=== PATIENT | female | born 1960 | race Caucasian/White ===

== ENCOUNTER 2024-03-05 10:58 | Emergency (ER) | payer OTHER, SELFPAY ==
[2024-03-05 11:19] VITALS: BP 147/53; PULSE 100; RESP 24; TEMP 36.6; O2SAT 97
--- NOTE | 2024-03-05 11:46 | ED.URI ---
HPI - URI/Sore Throat General Chief Complaint: Upper Respiratory Infection Stated Complaint: Sore Throat/Congestion/Ear Pain Time Seen by Provider: 03/05/24 11:46 History of Present Illness HPI Narrative: 63-year-old female with a history of COPD presented for complaint of cough, sore throat, right ear pain and nasal congestion. Onset 1 week. Symptoms were worse yesterday. Using nebulizers without significant improvement. Endorses shortness of breath with exertion, which she says is increased her baseline. Denies wheezing, nausea, vomiting diarrhea, fevers or lethargy. Endorses she was hospitalized a few weeks ago for influenza. Related Data Home Medications ?Medication ?Instructions ?Recorded ?Confirmed ?Last Taken ?Type albuterol sulfate 1.25 mg/3 mL 1.25 mg inhalation Q4-8H PRN 03/05/24 03/05/24 History solution for nebulization shortness of breath or wheezing albuterol sulfate 90 mcg/actuation 2 puff inhalation Q4-6H PRN 03/05/24 Unknown History aerosol inhaler shortness of breath or wheezing alendronate 70 mg tablet 70 mg PO WEEKLY 03/05/24 Unknown History cholecalciferol (vitamin D3) 1,250 1,250 mcg PO WEEKLY 03/05/24 Unknown History mcg (50,000 unit) capsule cyanocobalamin (vitamin B-12) 1,000 mcg IM MONTHLY 03/05/24 Unknown History 1,000 mcg/mL injection solution fluticasone fur. 200 mcg-umeclid 1 inh inhalation Q24H 03/05/24 Unknown History 62.5 mcg-vilant 25 mcg inhalat.powder (Trelegy Ellipta) montelukast 10 mg tablet 10 mg PO DAILY 03/05/24 Unknown History pantoprazole 40 mg tablet,delayed 40 mg PO HS 03/05/24 03/05/24 Unknown History release (Protonix) prednisone 5 mg tablet 7.5 mg PO DAILY 03/05/24 Unknown History rosuvastatin 10 mg tablet 10 mg PO DAILY 03/05/24 Unknown History Allergies Allergy/AdvReac Type Severity Reaction Status Date / Time ceftriaxone (From Rocephin) Allergy Intermediate HIVES Verified 03/05/24 11:28 Review of Systems Review of Systems: ROS per HPI FOR[facility] Past Medical History Medical History (Updated 03/05/24 @ 12:02 by Shala Mcarthur APRN) Adrenal insufficiency COPD (chronic obstructive pulmonary disease) Exam Narrative: GENERAL: mildly ill-appearing, no acute distress. EYES: conjunctivae clear ENT: Mucous membranes moist. right TM pearly gilbert with normal light reflex, mild excess cerumen to canal. Left TM unable to visualize due to excess cerumen.; no tragal tenderness. Oropharynx not erythematous without lesions. Tonsils not enlarged and without exudate. No drooling, no hoarseness, no trismus, uvula midline. No tripod positioning, hot potato voice, or soft palate swelling. NECK: Supple. No lymphadenopathy CHEST: Clear to auscultation, breath sounds equal. No respiratory distress, speaks in full sentences. HEART: Regular rate and rhythm. No murmur heard. SKIN: Warm, dry, no rash. NEURO: Alert and oriented x3. Course Course Emergency Course: Patient is aware of diagnosis, understands and agrees to treatment plan. Anticipatory guidance given. Patient agrees to follow-up as directed and is aware of reasons to seek care at the emergency department. Portions of this record may have been created with voice recognition software Level of Care: Express Care Visit Vital Signs Vital signs: Vital Signs Temperature 98 F 03/05/24 11:19 Pulse Rate 100 03/05/24 11:19 Respiratory Rate 24 H 03/05/24 11:19 Blood Pressure 147/53 H 03/05/24 11:19 Pulse Oximetry 97 03/05/24 11:19 Oxygen Delivery Room Air 03/05/24 11:19 Temperature 98 F 03/05/24 11:19 Pulse Rate 100 03/05/24 11:19 Respiratory Rate 24 H 03/05/24 11:19 Blood Pressure 147/53 H 03/05/24 11:19 Pulse Oximetry 97 03/05/24 11:19 Oxygen Delivery Room Air 03/05/24 11:19 MDM - URI/Sore Throat MDM Narrative Medical decision making narrative: Negative flu and COVID result reviewed with pt. Advise supportive treatments. Patient is appropriate for outpatient treatment and follow-up. Differential Diagnosis Differential diagnosis: Likely upper respiratory infection, viral infection and pharyngitis Lab Data Labs: Lab Results 03/05/24 Range/Units 11:46 POC Influenza A Ag Negative (Negative) POC Influenza B Ag Negative (Negative) POC SARS CoV-2 Ag Negative (Negative) Discharge Plan Discharge Clinical Impression: Bronchitis Patient Disposition: Home, Self-Care Condition: Stable Instructions: Antibiotic Form, Acute Bronchitis (ED) Additional Instructions: flu COVID negative. Acute bronchitis can be contagious because it is usually caused by infection with a virus or bacteria. It is usually for a few days but you can be contagious for up to one week. Avoid crowds until you do not have a fever and symptoms are improved Take medication as directed continue your nebulizers as previously prescribed Recommend Flonase spray and Zyrtec (or Claritin/Juliana) over the counter Cough syrup may cause drowsiness; avoid driving or take it at night time. Tylenol 1000mg every 8 hours as needed for pain Symptomatic treatment includes: rest, fluids, and increase humidity of the air at home. Follow up with your primary care provider, call to schedule appointment Go to the ER for worsening symptoms or concerns Patient Language: [place] Citizen Prescriptions: New amoxicillin-pot clavulanate [Augmentin ES-600] 600-42.9 mg/5 mL suspension for reconstitution 7.5 ml PO BID 7 Days Qty: 105 0RF prednisone 20 mg tablet 20 mg PO DAILY 4 Days Qty: 4 0RF No Action cholecalciferol (vitamin D3) 1,250 mcg (50,000 unit) capsule 1,250 mcg PO WEEKLY cyanocobalamin (vitamin B-12) 1,000 mcg/mL solution 1,000 mcg IM MONTHLY alendronate 70 mg tablet 70 mg PO WEEKLY albuterol sulfate 90 mcg/actuation HFA aerosol inhaler 2 puff INHALATION Q4-6H PRN (Reason: shortness of breath or wheezing) prednisone 5 mg tablet 7.5 mg PO DAILY rosuvastatin 10 mg tablet 10 mg PO DAILY montelukast 10 mg tablet 10 mg PO DAILY Trelegy Ellipta 200-62.5-25 mcg blister with device 1 inh INHALATION Q24H albuterol sulfate 1.25 mg/3 mL solution for nebulization 1.25 mg inhalation Q4-8H PRN (Reason: shortness of breath or wheezing) pantoprazole [Protonix] 40 mg tablet,delayed release (DR/EC) 40 mg PO HS Follow-up/Referrals: PHYSICIAN NOT ON STAFF,NONSTAFF [Primary Care Provider] -
[2024-03-05 11:48] LABS: EDCOVIDSCREEN Negative (Negative)
[2024-03-05 11:49] LABS: EDINFLUASCREEN Negative (Negative); EDINFLUBSCREEN Negative (Negative)
--- OUTSIDE RECORDS SUMMARY | 2024-03-09 10:19 | XMS_ITS ---
Author Organization [facility] Address [address] [place] [address] Phone Care Team Providers Care Generator Worker Name Role Phone DR KM Primary Care Provider ELIANA Jarrett DO Unavailable [phone] Problems Includes: Active, inactive, and resolved Problems All Visits Onset Date Resolved Date Provider Condition S tatus Chronic Obstructive Pulmonary Disease 05/30/2021 RHETT PERLA EDUCATION DEAN-C Active Last Documented On 2 11:55AM ; [facility] Plan of Treatment Findings Encounter Date Go to the emergency room if condition worsens WALK IN PATIENT - ESTABLISHED PT with BRI YING EDUCATION DEAN-BC 02/13/2023 Last Documented On 3 4:29PM ; [facility] Ordered analgesics (non-ster oidal anti-inflammatory agents) WALK IN PATIENT - ESTABLISHED PT with BRI YING EDUCATION DEAN-BC 02/13/2023 Last Documented On 3 4:29PM ; [facility] Ordered follow-up visit in 2 -3 weeks with an office visit with dentist WALK IN PATIENT - ESTABLISHED PT with BRI YING EDUCATION DEAN-BC 02/13/2023 Last Documented On 3 4:29PM ; [facility] Ordered moist heat WALK IN PATIENT - ES TABLISHED PT with BRI YING EDUCATION DEAN-BC 02/13/2023 Last Documented On 3 4:29PM ; [facility] Ordered return to the clinic if condition worsens or new symptoms arise WALK IN PATIENT - ESTABLISHED PT with BRI YING EDUCATION DEAN-BC 02/13/2023 Last Documented On 3 4:29PM ; [facility] Ordered follow-up visit in 1 -2 weeks with an office visit or sooner if symptoms persist or worsen COVID SICK VISIT- ESTABLISHED PATIENT with BRI YING EDUCATION DEAN-BC 12/15/2022 Last Documented On 3 7:19PM ; [facility] Ordered patient to call if p roblem develops COVID SICK VISIT- ESTABLISHED PATIENT with BRI YING EDUCATION DEAN-BC 12/15/2022 Last Documented On 3 7:19PM ; [facility] Ordered return to the clinic if condition worsens or new symptoms arise COVID SICK VISIT- ESTABLISHED PATIENT with BRI YING EDUCATION DEAN-BC 12/15/2022 Last Documented On 3 7:19PM ; [facility] Ordered follow-up visit in 1 -2 weeks with an office visit or sooner if symptoms persist or worsen COVID SICK VISIT- ESTABLISHED PATIENT with BRI YING EDUCATION DEAN-BC 11/20/2022 Last Documented On 3 8:02PM ; [facility] Ordered patient to call if p roblem develops COVID SICK VISIT- ESTABLISHED PATIENT with BRI YING EDUCATION DEAN-BC 11/20/2022 Last Documented On 3 8:02PM ; [facility] Ordered return to the clinic if condition worsens or new symptoms arise COVID SICK VISIT- ESTABLISHED PATIENT with BRI YING EDUCATION DEAN-BC 11/20/2022 Last Documented On 3 8:02PM ; [facility] Ordered patient will call fo r appointment as needed COVID SICK VISIT- ESTABLISHED PATIENT with BELINDA Thompson [employer] INVESTIGATOR 10/06/2022 Last Documented On 3 7:48AM ; [facility] Ordered return to the clinic if condition worsens or new symptoms arise COVID SICK VISIT- ESTABLISHED PATIENT with BELINDA Thompson [employer] INVESTIGATOR 10/06/2022 Last Documented On 3 7:48AM ; [facility] Ordered goals, options, limi tations and risks of therapy COVID SICK VISIT- ESTABLISHED PATIENT with BELINDA HUTCHINSON [employer]VEST[employer]ATION UNIT INVESTIGATOR 07/08/2022 Last Documented On 3 9:19AM ; [facility] Ordered patient will call fo r appointment as needed COVID SICK VISIT- ESTABLISHED PATIENT with BELINDA HUTCHINSON [employer] INVESTIGATION UNIT INVESTIGATOR 07/08/2022 Last Documented On 3 9:19AM ; [facility] Ordered return to the clinic if condition worsens or new symptoms arise COVID SICK VISIT- ESTABLISHED PATIENT with BELINDA HUTCHINSON [employer]ST[employer]ATION UNIT INVESTIGATOR 07/08/2022 Last Documented On 3 9:19AM ; [facility] Ordered goals, options, limi tations and risks of therapy COVID SICK VISIT- ESTABLISHED PATIENT with BELINDA HUTCHINSON [employer]VEST[employer]ATION UNIT INVESTIGATOR 05/28/2022 Last Documented On 3 8:26AM ; [facility] Ordered patient will call fo r appointment as needed COVID SICK VISIT- ESTABLISHED PATIENT with BELINDA HUTCHINSON SPECIAL INVESTIGATION UNIT INVESTIGATOR 05/28/2022 Last Documented On 3 8:26AM ; [facility] Ordered return to the clinic if condition worsens or new symptoms arise COVID SICK VISIT- ESTABLISHED PATIENT with BELINDA HUTCHINSON [employer] INVESTIGATION UNIT INVESTIGATOR 05/28/2022 Last Documented On 3 8:26AM ; [facility] Ordered follow-up visit as n eeded with an office visit if symptoms persist or worsen COVID SICK VISIT- ESTABLISHED PATIENT with BRI YING EDUCATION DEAN-BC 12/02/2021 Last Documented On 2 6:07PM ; [facility] Ordered patient to call if p roblem develops COVID SICK VISIT- ESTABLISHED PATIENT with BRI YING EDUCATION DEAN-BC 12/02/2021 Last Documented On 2 6:07PM ; [facility] Ordered return to the clinic if condition worsens or new symptoms arise COVID SICK VISIT- ESTABLISHED PATIENT with BRI YING EDUCATION DEAN-BC 12/02/2021 Last Documented On 2 6:07PM ; [facility] Continue current medication COVID SICK V ISIT- ESTABLISHED PATIENT with SIMIN LAMA EDUCATION DEAN-C 10/10/2021 Last Documented On 2 10:04AM ; [facility] The options include close observation CO VID SICK VISIT- ESTABLISHED PATIENT with SIMIN LAMA EDUCATION DEAN-C 10/10/2021 Last Documented On 2 10:04AM ; [facility] Ordered disposition Discusse d etiology and course of atopic dermatitis. Discussed limiting bathing and using oily soaps. Also discussed need for lubrication of skin on a regular basis, with intermittent use of topical steroids or topical immune modulator creams COVID SICK VISIT- ESTABLISHED PATIENT with BRI YING EDUCATION DEAN-BC 07/24/2021 Last Documented On 2 5:10PM ; [facility] Ordered follow-up visit 5-7 days if symptoms persist or worsen COVID SICK VISIT- ESTABLISHED PATIENT with BRI YING EDUCATION DEAN-BC 07/24/2021 Last Documented On 2 5:10PM ; [facility] Ordered return to the clinic if condition worsens or new symptoms arise COVID SICK VISIT- ESTABLISHED PATIENT with BRI YING EDUCATION DEAN-BC 07/24/2021 Last Documented On 2 5:10PM ; [facility] Clinical summary provided to patient COV ID SICK VISIT- ESTABLISHED PATIENT with BRI RAWLS EDUCATION DEAN-C 07/04/2021 Last Documented On 2 6:25PM ; [facility] Plan of care reviewed and agreed to COVI D SICK VISIT- ESTABLISHED PATIENT with BRI RAWLS EDUCATION DEAN-C 07/04/2021 Last Documented On 2 6:25PM ; [facility] Go to the emergency room if condition worsens WALK IN PATIENT - ESTABLISHED PT with BRI YING EDUCATION DEAN-BC 06/26/2021 Last Documented On 2 3:46PM ; [facility] Ordered follow-up visit as n eeded with an office visit. WALK IN PATIENT - ESTABLISHED PT with BRI YING EDUCATION DEAN-BC 06/26/2021 Last Documented On 2 3:46PM ; [facility] Ordered return to the clinic if condition worsens or new symptoms arise WALK IN PATIENT - ESTABLISHED PT with BRI YING EDUCATION DEAN-BC 06/26/2021 Last Documented On 2 3:46PM ; [facility] Ordered follow-up visit in 1 -2 weeks with an office visit or sooner if symptoms persist or worsen COVID SICK VISIT- ESTABLISHED PATIENT with BRI YING EDUCATION DEAN-BC 05/29/2021 Last Documented On 2 6:35PM ; [facility] Ordered patient to call if bandar maria develops COVID SICK VISIT- ESTABLISHED PATIENT with BRI YING EDUCATION DEAN-BC 05/29/2021 Last Documented On 2 6:35PM ; [facility] Ordered return to the clinic if condition worsens or new symptoms arise COVID SICK VISIT- ESTABLISHED PATIENT with BRI YING EDUCATION DEAN-BC 05/29/2021 Last Documented On 2 6:35PM ; [facility] Continue current medication COVID SICK V ISIT- ESTABLISHED PATIENT with SIMIN LAMA EDUCATION DEAN-C 03/17/2021 Last Documented On 2 5:40PM ; [facility] The options include close observation CO VID SICK VISIT- ESTABLISHED PATIENT with SIMIN LAMA EDUCATION DEAN-C 03/17/2021 Last Documented On 2 5:40PM ; [facility] Continue current medication COVID SICK V ISIT- ESTABLISHED PATIENT with SIMIN LAMA EDUCATION DEAN-C 03/01/2021 Last Documented On 2 11:50AM ; [facility] The options include close observation CO VID SICK VISIT- ESTABLISHED PATIENT with SIMIN LAMA EDUCATION DEAN-C 03/01/2021 Last Documented On 2 11:50AM ; [facility] Pt to use prescription as or dered. Purpose of and use of medication discussed. COVID SICK VISIT- ESTABLISHED PATIENT with SIMIN LAMA EDUCATION DEAN-C 01/27/2021 Last Documented On 1 6:00PM ; [facility] Continue current medication COVID SICK V ISIT- ESTABLISHED PATIENT with SIMIN LAMA EDUCATION DEAN-C 01/27/2021 Last Documented On 1 6:00PM ; [facility] Ordered follow-up visit in 1 -2 weeks with an office visit or sooner if symptoms persist or worsen COVID SICK VISIT- ESTABLISHED PATIENT with BRI YING EDUCATION DEAN-BC 10/25/2020 Last Documented On 1 6:36PM ; [facility] Ordered patient to call if p roblem develops COVID SICK VISIT- ESTABLISHED PATIENT with BRI YING EDUCATION DEAN-BC 10/25/2020 Last Documented On 1 6:36PM ; [facility] Ordered return to the clinic if condition worsens or new symptoms arise COVID SICK VISIT- ESTABLISHED PATIENT with BRI YING EDUCATION DEAN-BC 10/25/2020 Last Documented On 1 6:36PM ; [facility] Continue current medication COVID SICK V ISIT- ESTABLISHED PATIENT with LEANDRA GOODMAN EDUCATION DEAN-C 10/11/2020 Last Documented On 1 7:45PM ; [facility] The options include close observation CO VID SICK VISIT- ESTABLISHED PATIENT with LEANDRA GOODMAN EDUCATION DEAN-C 10/11/2020 Last Documented On 1 7:45PM ; [facility] Pt to use prescription as or dered. Purpose of and use of medication discussed. WALK IN PATIENT - ESTABLISHED PT with SIMIN LAMA EDUCATION DEAN-C 06/14/2020 Last Documented On 1 7:11PM ; [facility] The options include close observation WA LK IN PATIENT - ESTABLISHED PT with SIMIN E DAINA EDUCATION DEAN-C 06/14/2020 Last Documented On 1 7:11PM ; [facility] Watch for signs/symptoms of infection, return to the clinic if seen WALK IN PATIENT - ESTABLISHED PT with SIMIN LAMA EDUCATION DEAN-C 06/14/2020 Last Documented On 1 7:11PM ; [facility] Ordered follow-up visit in 1 -2 weeks with an office visit or sooner if symptoms persist or worsen SICK VISIT with BRI YING EDUCATION DEAN-BC 10/26/2019 Last Documented On 0 7:32PM ; [facility] Ordered patient to call if p roblem develops SICK VISIT with BRI Thompson STEPAN EDUCATION DEAN-BC 10/26/2019 Last Documented On 0 7:32PM ; [facility] Ordered return to the clinic if condition worsens or new symptoms arise SICK VISIT with BRI YING [facility] 10/26/2019 Last Documented On 0 7:32PM ; [facility] Ordered follow-up visit in 1 -2 weeks with an office visit or sooner if symptoms persist or worsen WALK-IN CLINIC SICK VISIT with BRI E STEPAN [facility]- 07/16/2019 Last Documented On 0 12:32PM ; [facility] Ordered patient to call if p roblem develops WALK-IN CLINIC SICK VISIT with BRIASUNCION MARROQUINMORE [facility]- 07/16/2019 Last Documented On 0 12:32PM ; [facility] Ordered return to the clinic if condition worsens or new symptoms arise WALK-IN CLINIC SICK VISIT with BRI E STEPAN [facility]- 07/16/2019 Last Documented On 0 12:32PM ; [facility] Ordered follow-up visit in 1 -2 weeks with an office visit or sooner if symptoms persist or worsen WALK-IN CLINIC SICK VISIT with BRIASUNCION YING [facility]- 06/30/2019 Last Documented On 0 7:05PM ; [facility] Ordered patient to call if p roblem develops WALK-IN CLINIC SICK VISIT with [facility]UNCION [facility] 06/30/2019 Last Documented On 0 7:05PM ; [facility] Ordered return to the clinic if condition worsens or new symptoms arise WALK-IN CLINIC SICK VISIT with BRI E STEPAN [facility]- 06/30/2019 Last Documented On 0 7:05PM ; [facility] Ordered follow-up visit in 1 -2 weeks with an office visit or sooner if symptoms persist or worsen WALK-IN CLINIC SICK VISIT with BRIASUNCION YING [facility]- 02/10/2019 Last Documented On 9 5:01PM ; [facility] Ordered patient to call if p roblem develops WALK-IN CLINIC SICK VISIT with BRI Donna STEPAN [facility]- 02/10/2019 Last Documented On 9 5:01PM ; [facility] Ordered return to the clinic if condition worsens or new symptoms arise WALK-IN CLINIC SICK VISIT with BRIASUNCION YING [facility]- 02/10/2019 Last Documented On 9 5:01PM ; [facility] Ordered patient to call if p roblem develops WALK-IN CLINIC SICK VISIT with RHETT N PERLA EDUCATION DEAN-C 12/10/2018 Last Documented On 9 1:18PM ; [facility] Ordered return to the clinic if condition worsens or new symptoms arise WALK-IN CLINIC SICK VISIT with RHETT N PERLA EDUCATION DEAN-C 12/10/2018 Last Documented On 9 1:18PM ; [facility] Ordered follow-up visit in 1 -2 weeks with an office visit or sooner if symptoms persist or worsen WALK-IN CLINIC SICK VISIT with BRI YING [facility] 10/07/2018 Last Documented On 9 3:20PM ; [facility] Ordered patient to call if p roblem develops WALK-IN CLINIC SICK VISIT with BRI YING [facility] 10/07/2018 Last Documented On 9 3:20PM ; [facility] Ordered referred to primary care physician WALK-IN CLINIC SICK VISIT with BRI YING [facility] 10/07/2018 Last Documented On 9 3:20PM ; [facility] Ordered return to the clinic if condition worsens or new symptoms arise WALK-IN CLINIC SICK VISIT with BRI YING [facility] 10/07/2018 Last Documented On 9 3:20PM ; [facility] Ordered Transition in care, clinical summary provided WALK-IN CLINIC SICK VISIT with BRI YING EDUCATION DEAN-BC 10/07/2018 Last Documented On 9 3:20PM ; [facility] Ordered referred to primary care physician WALK-IN CLINIC SICK VISIT with BRI YING EDUCATION DEAN-BC 09/22/2018 Last Documented On 9 7:28PM ; [facility] Ordered Transition in care, clinical summary provided WALK-IN CLINIC SICK VISIT with BRI YING [facility] 09/22/2018 Last Documented On 9 7:28PM ; [facility] Ordered referred to primary care physician WALK-IN CLINIC SICK VISIT with BRI YING [facility] 09/20/2018 Last Documented On 9 7:40PM ; [facility] Ordered Transition in care, clinical summary provided WALK-IN CLINIC SICK VISIT with BRI YING EDUCATION DEAN-BC 09/20/2018 Last Documented On 9 7:40PM ; [facility] Ordered referred to primary care physician WALK-IN CLINIC SICK VISIT with BRI YING EDUCATION DEAN-BC 09/14/2018 Last Documented On 9 6:25PM ; [facility] Ordered Transition in care, clinical summary provided WALK-IN CLINIC SICK VISIT with BRI YING EDUCATION DEAN-BC 09/14/2018 Last Documented On 9 6:25PM ; [facility] Ordered referred to primary care physician WALK-IN CLINIC SICK VISIT with BRI YING EDUCATION DEAN-BC 09/10/2018 Last Documented On 9 3:46PM ; [facility] Ordered Transition in care, clinical summary provided WALK-IN CLINIC SICK VISIT with BRI YING [facility] 09/10/2018 Last Documented On 9 3:46PM ; [facility] Ordered follow-up visit as n eeded with an office visit if symptoms persist or worsen WALK-IN CLINIC SICK VISIT with RHETT PERLA EDUCATION DEAN-C 06/24/2018 Last Documented On 9 12:33PM ; [facility] Ordered patient to call if p roblem develops WALK-IN CLINIC SICK VISIT with RHETT BRUMFIELDCLAIR EDUCATION DEAN-C 06/24/2018 Last Documented On 9 12:33PM ; [facility] Ordered return to the clinic if condition worsens or new symptoms arise WALK-IN CLINIC SICK VISIT with RHETT Cordova PERLA EDUCATION DEAN-C 06/24/2018 Last Documented On 9 12:33PM ; [facility] Ordered follow-up visit in 1 -2 weeks with an office visit or sooner if symptoms persist or worsen WALK-IN CLINIC SICK VISIT with BRI YING [facility] 05/07/2018 Last Documented On 9 3:19PM ; [facility] Ordered patient to call if p roblem develops WALK-IN CLINIC SICK VISIT with BRI YING [facility] 05/07/2018 Last Documented On 9 3:19PM ; [facility] Ordered referred to primary care physician WALK-IN CLINIC SICK VISIT with BRI YING [facility]- 05/07/2018 Last Documented On 9 3:19PM ; [facility] Ordered return to the clinic if condition worsens or new symptoms arise WALK-IN CLINIC SICK VISIT with BRI YING [facility]- 05/07/2018 Last Documented On 9 3:19PM ; [facility] Ordered Transition in care, clinical summary provided WALK-IN CLINIC SICK VISIT with BRI YING [facility]- 05/07/2018 Last Documented On 9 3:19PM ; [facility] Ordered patient to call if p roblem develops WALK-IN CLINIC SICK VISIT with RHETT PERLA [facility] 02/06/2018 Last Documented On 8 2:20PM ; [facility] Ordered return to the clinic if condition worsens or new symptoms arise WALK-IN CLINIC SICK VISIT with RHETT PERLA [facility] 02/06/2018 Last Documented On 8 2:20PM ; [facility] Pt to use prescription as or dered. Purpose of and use of medication discussed. WALK-IN CLINIC SICK VISIT with LUCIE SEGUNDO [facility]- 09/09/2017 Last Documented On 8 6:52PM ; [facility] Ordered weight loss diet WALK-IN CLINIC SICK VISIT with LUCIE SEGUNDO [facility]- 09/09/2017 Last Documented On 8 6:52PM ; [facility] Ordered follow-up visit in 1 -2 weeks with an office visit or sooner if symptoms persist or worsen WALK-IN CLINIC SICK VISIT with BRI YING [facility]- 04/06/2017 Last Documented On 8 2:04PM ; [facility] Ordered patient to call if p roblem develops WALK-IN CLINIC SICK VISIT with BRI YING [facility]- 04/06/2017 Last Documented On 8 2:04PM ; [facility] Ordered return to the clinic if condition worsens or new symptoms arise WALK-IN CLINIC SICK VISIT with BRI YING [facility] 04/06/2017 Last Documented On 8 2:04PM ; [facility] Ordered follow-up visit as n eeded with an office visit if symptoms persist or worsen WALK-IN CLINIC SICK VISIT with BRI YING [facility] 01/31/2017 Last Documented On 7 4:08PM ; [facility] Ordered patient to call if bandar maria develops WALK-IN CLINIC SICK VISIT with BRI YING [facility] 01/31/2017 Last Documented On 7 4:08PM ; [facility] Ordered referred to primary care physician WALK-IN CLINIC SICK VISIT with BRI YING [facility] 01/31/2017 Last Documented On 7 4:08PM ; [facility] Ordered return to the clinic if condition worsens or new symptoms arise WALK-IN CLINIC SICK VISIT with BRI YING [facility] 01/31/2017 Last Documented On 7 4:08PM ; [facility] Ordered Transition in care, clinical summary provided WALK-IN CLINIC SICK VISIT with BRI YING [facility] 01/31/2017 Last Documented On 7 4:08PM ; [facility] Pt to use prescription as or dered. Purpose of and use of medication discussed. WALK-IN CLINIC SICK VISIT with LUCIE SEGUNDO [facility] 11/15/2016 Last Documented On 7 2:26PM ; [facility] Pt to use prescription as or dered. Purpose of and use of medication discussed. WALK-IN CLINIC SICK VISIT with LUCIE SEGUNDO [facility] 09/09/2016 Last Documented On 7 5:23PM ; [facility] Pt to use prescription as or dered. Purpose of and use of medication discussed. WALK-IN CLINIC SICK VISIT with LUCIE SEGUNDO [facility] 02/26/2016 Last Documented On 7 7:16PM ; [facility] Pt to use prescription as or dered. Purpose of and use of medication discussed. SAME DAY SICK VISIT with LUCIE SEGUNDO [facility] 01/12/2016 Last Documented On 6 1:55PM ; [facility] Continue current medication [place] FELI E SICK VISIT with LUCIE SEGUNDO EDUCATION [facility] 01/12/2016 Last Documented On 6 1:55PM ; [facility] Ordered follow-up visit as n eeded with an office visit. SICK VISIT with TYSHAWN UMANZOR PA-C 03/25/2009 Last Documented On 0 10:55AM ; [facility] Instructions to patient Go to the emergency room if condition worsens Last Documented On 3 4:27PM ; [facility] Go to the emergency room if condition worsens Last Documented On 3 4:27PM ; [facility] Watch for signs/symptoms of infection Last Documented On 3 4:27PM ; [facility] Watch for signs/symptoms of infection, return to the clinic if seen Last Documented On 3 4:27PM ; [facility] Go to the emergency room if condition worsens Last Documented On 3 7:15PM ; [facility] Watch for signs/symptoms of infection Last Documented On 3 7:15PM ; [facility] Watch for signs/symptoms of infection, return to the clinic if seen Last Documented On 3 7:15PM ; [facility] Intervention and counseling on cessation of tobacco use Last Documented On 3 7:07PM ; [facility] Go to the emergency room if condition worsens Last Documented On 3 7:00PM ; [facility] Watch for signs/symptoms of infection Last Documented On 3 7:00PM ; [facility] Watch for signs/symptoms of infection, return to the clinic if seen Last Documented On 3 7:00PM ; [facility] Instructions for patient Last Documented On 3 7:42AM ; [facility] Intervention and counseling on cessation of tobacco use Last Documented On 3 7:03PM ; [facility] Go to the emergency room if condition worsens Last Documented On 2 6:03PM ; [facility] Watch for signs/symptoms of infection Last Documented On 2 6:03PM ; [facility] Watch for signs/symptoms of infection, return to the clinic if seen Last Documented On 2 6:03PM ; [facility] Go to the emergency room if condition worsens Last Documented On 2 3:45PM ; [facility] Watch for signs/symptoms of infection, return to the clinic if seen Last Documented On 2 3:45PM ; [facility] Go to the emergency room if condition worsens Last Documented On 2 6:31PM ; [facility] Watch for signs/symptoms of infection Last Documented On 2 6:31PM ; [facility] Watch for signs/symptoms of infection, return to the clinic if seen Last Documented On 2 6:31PM ; [facility] Go to the emergency room if condition worsens Last Documented On 1 6:34PM ; [facility] Watch for signs/symptoms of infection Last Documented On 1 6:34PM ; [facility] Watch for signs/symptoms of infection, return to the clinic if seen Last Documented On 1 6:34PM ; [facility] Intervention and counseling on cessation of tobacco use Last Documented On 1 5:45PM ; [facility] Watch for signs/symptoms of infection, return to the clinic if seen Last Documented On 1 7:09PM ; [facility] Go to the emergency room if condition worsens Last Documented On 0 7:30PM ; [facility] Watch for signs/symptoms of infection Last Documented On 0 7:30PM ; [facility] Watch for signs/symptoms of infection, return to the clinic if seen Last Documented On 0 7:30PM ; [facility] Intervention and counseling on cessation of tobacco use : Patient recieved smoking cessation handout Last Documented On 0 7:30PM ; [facility] Go to the emergency room if condition worsens Last Documented On 0 12:30PM ; [facility] Watch for signs/symptoms of infection Last Documented On 0 12:30PM ; [facility] Watch for signs/symptoms of infection, return to the clinic if seen Last Documented On 0 12:30PM ; [facility] Intervention and counseling on cessation of tobacco use : Patient recieved smoking cessation handout Last Documented On 0 12:30PM ; [facility] Go to the emergency room if condition worsens Last Documented On 0 6:48PM ; [facility] Watch for signs/symptoms of infection Last Documented On 0 6:48PM ; [facility] Watch for signs/symptoms of infection, return to the clinic if seen Last Documented On 0 6:48PM ; [facility] Intervention and counseling on cessation of tobacco use : Patient recieved smoking cessation handout Last Documented On 0 6:33PM ; [facility] Go to the emergency room if condition worsens Last Documented On 9 4:57PM ; [facility] Watch for signs/symptoms of infection Last Documented On 9 4:57PM ; [facility] Watch for signs/symptoms of infection, return to the clinic if seen Last Documented On 9 4:57PM ; [facility] Go to the emergency room if condition worsens Last Documented On 9 1:16PM ; [facility] Go to the emergency room if condition worsens Last Documented On 9 3:18PM ; [facility] Watch for signs/symptoms of infection Last Documented On 9 3:18PM ; [facility] Watch for signs/symptoms of infection, return to the clinic if seen Last Documented On 9 3:18PM ; [facility] Watch for signs/symptoms of infection, return to the clinic if seen Last Documented On 9 7:26PM ; [facility] Watch for signs/symptoms of infection, return to the clinic if seen Last Documented On 9 7:38PM ; [facility] Watch for signs/symptoms of infection, return to the clinic if seen Last Documented On 9 2:47PM ; [facility] Return to the clinic if cond ition worsens or new symptoms arise Last Documented On 9 12:27PM ; [facility] Watch for signs/symptoms of infection Last Documented On 9 12:27PM ; [facility] Watch for signs/symptoms of infection, return to the clinic if seen Last Documented On 9 12:27PM ; [facility] Go to the emergency room if condition worsens Last Documented On 9 3:18PM ; [facility] Watch for signs/symptoms of infection Last Documented On 9 3:18PM ; [facility] Watch for signs/symptoms of infection, return to the clinic if seen Last Documented On 9 3:18PM ; [facility] Go to the emergency room if condition worsens Last Documented On 8 2:18PM ; [facility] Intervention and counseling on cessation of tobacco use Last Documented On 8 6:51PM ; [facility] Intervention and counseling on cessation of tobacco use, 3-10 minutes Last Documented On 8 6:51PM ; [facility] Go to the emergency room if condition worsens Last Documented On 8 12:58PM ; [facility] Watch for signs/symptoms of infection Last Documented On 8 12:58PM ; [facility] Watch for signs/symptoms of infection, return to the clinic if seen Last Documented On 8 12:58PM ; [facility] Go to the emergency room if condition worsens Last Documented On 7 3:53PM ; [facility] Watch for signs/symptoms of infection Last Documented On 7 3:53PM ; [facility] Watch for signs/symptoms of infection, return to the clinic if seen Last Documented On 7 3:53PM ; [facility] Education and Decision Aids were provided during visit for: Patient education about anti biotics: need to finish even if feeling better Last Documented On 3 4:27PM ; [facility] Patient education about anti biotics: need to finish even if feeling better Last Documented On 3 7:15PM ; [facility] Patient education about anti biotics: need to finish even if feeling better Last Documented On 3 7:00PM ; [facility] Patient education about anti biotics: need to finish even if feeling better Last Documented On 2 6:31PM ; [facility] Patient education about anti biotics: need to finish even if feeling better Last Documented On 1 6:34PM ; [facility] Patient education about anti biotics: need to finish even if feeling better Last Documented On 0 7:30PM ; [facility] Patient education about anti biotics: need to finish even if feeling better Last Documented On 0 12:30PM ; [facility] Patient education about anti biotics: need to finish even if feeling better Last Documented On 0 6:48PM ; [facility] Patient education about anti biotics: need to finish even if feeling better Last Documented On 9 4:57PM ; [facility] Patient education about anti biotics: need to finish even if feeling better Last Documented On 9 3:18PM ; [facility] Patient education about anti biotics: need to finish even if feeling better Last Documented On 9 3:18PM ; [facility] Discussed concerns about tob acco use Last Documented On 8 6:51PM ; [facility] Health seminar on smoking ce ssation Last Documented On 8 6:51PM ; [facility] Patient education about anti biotics: need to finish even if feeling better Last Documented On 8 12:58PM ; [facility] Assessments Includes: Assessments for all patient encounters Findings Encounter Date Cellulitis and abscess of mouth WALK IN PATIENT - ESTABLISHED PT with BRI YING [facility]UC[facility] 02/13/2023 Last Documented On 3 4:29PM ; [facility] Acute upper respiratory infection COVID SICK VISIT- ESTABLISHED PATIENT with BELINDA [facility]CH[facility] [employer] [facility] INVESTIGATOR 10/06/2022 Last Documented On 3 7:48AM ; [facility] Vitamin B12 deficiency WALK IN PATIENT - ESTABLISHED PT with RHETT PERLA [facility]UC[facility]-C 10/02/2022 Last Documented On 3 7:20PM ; [facility] Acute sinusitis COVID SICK VISIT- ES TABLISHED PATIENT with BELINDA HUTCHINSON [employer] UNIT INVESTIGATOR 07/08/2022 Last Documented On 3 9:19AM ; [facility] Chronic obstructive pulmonary disease CO VID SICK VISIT- ESTABLISHED PATIENT with RHETT Tasha PERLA [facility]UC[facility] 07/02/2022 Last Documented On 3 6:27PM ; [facility] [H61.23 - Impacted cerumen, bilateral] cerumen impaction in both ears COVID SICK VISIT- ESTABLISHED PATIENT with BELINDA [facility]CH[facility] [employer] [facility]IT INVESTIGATOR 05/28/2022 Last Documented On 3 8:26AM ; [facility] Acute sinusitis COVID SICK VISIT- ES TABLISHED PATIENT with BELINDA HUTCHINSON [employer] UNIT INVESTIGATOR 05/28/2022 Last Documented On 3 8:26AM ; [facility] Complaint of seasonal allerg ic reaction COVID SICK VISIT- ESTABLISHED PATIENT with BELINDA HUTCHINSON [employer] UNIT INVESTIGATOR 05/28/2022 Last Documented On 3 8:26AM ; [facility] Chronic obstructive pulmonary disease CO VID SICK VISIT- ESTABLISHED PATIENT with RHETT Cordova PERLA [facility]UC[facility] 01/06/2022 Last Documented On 2 6:11PM ; [facility] Acute pharyngitis COVID SICK VISIT- ES TABLISHED PATIENT with BRI Donna YING EDUCATION [facility]-BC 12/02/2021 Last Documented On 2 6:07PM ; [facility] Chronic obstructive pulmonary disease CO VID SICK VISIT- ESTABLISHED PATIENT with SIMIN Donna DAINA EDUCATION [facility]-C 10/10/2021 Last Documented On 2 10:04AM ; [facility] Contact with and (Suspected) exposure to COVID-19 COVID SICK VISIT- ESTABLISHED PATIENT with SIMIN Donna LAMA EDUCATION [facility]-C 10/10/2021 Last Documented On 2 10:04AM ; [facility] Acute sinusitis COVID SICK VISIT- ES TABLISHED PATIENT with RHETT Cordova [facility] 05/03/2021 Last Documented On 2 5:10PM ; [facility] Contact with and (Suspected) exposure to COVID-19 COVID SICK VISIT- ESTABLISHED PATIENT with RHETT Tasha [facility] 05/03/2021 Last Documented On 2 5:10PM ; [facility] Acute maxillary sinusitis COVID SICK VIS IT- ESTABLISHED PATIENT with SIMIN LAMA [facility]UC[facility]-C 03/17/2021 Last Documented On 2 5:40PM ; [facility] Contact with and (Suspected) exposure to COVID-19 COVID SICK VISIT- ESTABLISHED PATIENT with SIMIN LAMA [facility]UC[facility]-C 03/17/2021 Last Documented On 2 5:40PM ; [facility] Acute nasopharyngitis COVID SICK VISIT- ESTABLISHED PATIENT with SIMIN LAMA [facility]UC[facility]-C 03/01/2021 Last Documented On 2 11:50AM ; [facility] Contact with and (Suspected) exposure to COVID-19 COVID SICK VISIT- ESTABLISHED PATIENT with SIMIN LAMA [facility]UC[facility]-C 03/01/2021 Last Documented On 2 11:50AM ; [facility] A streptococcus: B hem olytic pharyngitis COVID SICK VISIT- ESTABLISHED PATIENT with SIMIN LAMA [facility]UC[facility] 01/27/2021 Last Documented On 1 6:00PM ; [facility] Acute bronchitis [J45.901 - Unspecified asthma with (acute) exacerbation] COVID SICK VISIT- ESTABLISHED PATIENT with RHETT BRUMFIELDCLAIR EDUCATION DEAN-C 12/05/2020 Last Documented On 1 6:50PM ; [facility] Acute sinusitis COVID SICK VISIT- ES TABLISHED PATIENT with BRI Thompson STEPAN EDUCATION DEAN-BC 10/25/2020 Last Documented On 1 6:36PM ; [facility] Allergic rhinitis COVID SICK VISIT- ES TABLISHED PATIENT with LEANDRA Croft MAXINE EDUCATION DEAN-C 10/11/2020 Last Documented On 1 7:45PM ; [facility] Assessment of cough COVID SICK VISIT- ES TABLISHED PATIENT with LEANDRA Croft MAXINE [facility]-C 10/11/2020 Last Documented On 1 7:45PM ; [facility] Contact with and (Suspected) exposure to COVID-19 [Contact with and (suspected) exposure to COVID-19] COVID SICK VISIT- ESTABLISHED PATIENT with LEANDRA Croft MAXINE [facility]-C 10/11/2020 Last Documented On 1 7:45PM ; [facility] Dentoalveolar abscess [K04.7 - Periapical abscess without sinus] WALK IN PATIENT - ESTABLISHED PT with RHETT N PERLA [facility]UC[facility]-C 08/28/2020 Last Documented On 1 7:43PM ; [facility] Cerumen impaction [H61.23 - Impacted cerumen, bilateral] WALK IN PATIENT - ESTABLISHED PT with RHETT N PERLA [facility]UC[facility]-C 07/24/2020 Last Documented On 1 6:34PM ; [facility] Eustachian tube dysfunction [H69.83 - Other specified disorders of Eustachian tube, bilateral] WALK IN PATIENT - ESTABLISHED PT with RHETT N PERLA [facility]UC[facility]-C 07/24/2020 Last Documented On 1 6:34PM ; [facility] Cerumen impaction [Impacted cerumen, bilateral] WALK IN PATIENT - ESTABLISHED PT with SIMIN LAMA [facility] 06/14/2020 Last Documented On 1 7:11PM ; [facility] Acute sinusitis SICK VISIT with BRI YING [facility] 10/26/2019 Last Documented On 0 7:32PM ; [facility] Acute sinusitis WALK-IN CLINIC SICK VISIT with Alexa YING [facility] 07/16/2019 Last Documented On 0 12:32PM ; [facility] Acute sinusitis WALK-IN CLINIC SICK VISIT with Alexa YING [facility] 06/30/2019 Last Documented On 0 7:05PM ; [facility] Acute sinusitis WALK-IN CLINIC SICK VISIT with Alexa YING [facility] 02/10/2019 Last Documented On 9 5:01PM ; [facility] Acute sinusitis WALK-IN CLINIC SICK VISIT with Alexa Cordova PERLA [facility] 02/05/2019 Last Documented On 9 12:58PM ; [facility] A streptococcus: B hem olytic pharyngitis WALK-IN CLINIC SICK VISIT with RHETT N [facility]LA [facility]UC[facility]-C 02/05/2019 Last Documented On 9 12:58PM ; [facility] Acute sinusitis WALK-IN CLINIC SICK VISIT with Alexa MANETasha Cordova [facility] 12/10/2018 Last Documented On 9 1:18PM ; [facility] Acute bronchitis WALK-IN CLINIC SICK VISIT with RHETT N [facility]LA [facility]UC[facility]-C 10/14/2018 Last Documented On 9 7:07PM ; [facility] Acute sinusitis [J01.90 - Ac [place] sinusitis unspecified] WALK-IN CLINIC SICK VISIT with RHETT N [facility]-C 10/14/2018 Last Documented On 9 7:07PM ; [facility] Acute sinusitis WALK-IN CLINIC SICK VISIT with Alexa YING [facility]UC[facility]-BC 10/07/2018 Last Documented On 9 3:20PM ; [facility] Furuncle on the back WALK-IN CLINIC SICK VISIT with BRI YING EDUCATION [facility]-BC 09/22/2018 Last Documented On 9 7:28PM ; [facility] Furuncle on the back WALK-IN CLINIC SICK VISIT with BRI YING EDUCATION DEAN-BC 09/20/2018 Last Documented On 9 7:40PM ; [facility] Acute sinusitis [J01.90 - Ac [place] sinusitis, unspecified] WALK-IN CLINIC SICK VISIT with RHETT N [facility]LA [facility]-C 09/18/2018 Last Documented On 9 2:49PM ; [facility] Furuncle on the back WALK-IN CLINIC SICK VISIT with RHETT N [facility]LA [facility]UC[facility]-C 09/18/2018 Last Documented On 9 2:49PM ; [facility] Furuncle on the back WALK-IN CLINIC SICK VISIT with RHETT N [facility]LA [facility]UC[facility]-C 09/16/2018 Last Documented On 9 7:39PM ; [facility] Furuncle on the back WALK-IN CLINIC SICK VISIT with BRI YING EDUCATION DEAN-BC 09/14/2018 Last Documented On 9 6:25PM ; [facility] Furuncle on the back WALK-IN CLINIC SICK VISIT with RHETT N [facility]LA [facility]UC[facility]-C 09/12/2018 Last Documented On 9 6:43PM ; [facility] Furuncle on the back WALK-IN CLINIC SICK VISIT with BRI YING EDUCATION DEAN-BC 09/10/2018 Last Documented On 9 3:46PM ; [facility] Furuncle on the back WALK-IN CLINIC SICK VISIT with RHETT N [facility]LA [facility]UC[facility]-C 09/08/2018 Last Documented On 9 7:29PM ; [facility] Furuncle on the back WALK-IN CLINIC SICK VISIT with BRI YING EDUCATION [facility]AN-BC 09/06/2018 Last Documented On 9 7:35PM ; [facility] Furuncle on the back WALK-IN CLINIC SICK VISIT with RHETT N [facility]LA [facility]UC[facility]-C 09/04/2018 Last Documented On 9 1:25PM ; [facility] Furuncle on the back WALK-IN CLINIC SICK VISIT with RHETT N PERLA [facility]UC[facility]-C 09/02/2018 Last Documented On 9 7:25PM ; [facility] No sebaceous cyst [L72.3 - S ebaceous cyst] WALK-IN CLINIC SICK VISIT with RHETT N [facility]LA [facility]UC[facility]-C 09/02/2018 Last Documented On 9 7:25PM ; [facility] Acute sinusitis WALK-IN CLINIC SICK VISIT with Alexa ATELYTasha N [facility]LA [facility]UC[facility]-C 06/24/2018 Last Documented On 9 12:33PM ; [facility] Acute sinusitis WALK-IN CLINIC SICK VISIT with Alexa YING EDUCATION DEAN-BC 05/07/2018 Last Documented On 9 3:19PM ; [facility] Acute sinusitis WALK-IN CLINIC SICK VISIT with K ATELYN N PERLA [facility]UC[facility]-C 02/06/2018 Last Documented On 8 2:20PM ; [facility] Acute pharyngitis WALK-IN CLINIC SICK VISIT with LUCIE SEGUNDO EDUCATION DEAN-BC 09/09/2017 Last Documented On 8 6:52PM ; [facility] Acute sinusitis WALK-IN CLINIC SICK VISIT with Alexa YING EDUCATION DEAN-BC 04/06/2017 Last Documented On 8 2:04PM ; [facility] Acute pharyngitis WALK-IN CLINIC SICK VISIT with BRI E STEPAN [facility] 01/31/2017 Last Documented On 7 4:08PM ; [facility] Acute maxillary sinusitis WALK-IN CLINIC SICK VISIT with LUCIE A KAHRIG [facility] 11/15/2016 Last Documented On 7 2:26PM ; [facility] Acute serous otitis media of the right ear WALK-IN CLINIC SICK VISIT with LUCIE A KAHRIG [facility] 11/15/2016 Last Documented On 7 2:26PM ; [facility] Acute serous otitis media of the right ear WALK-IN CLINIC SICK VISIT with LUCIE A KAHRIG [facility] 09/09/2016 Last Documented On 7 5:23PM ; [facility] Cerumen impaction in the right ear WALK- IN CLINIC SICK VISIT with LUCIE A KAHRIG [facility] 09/09/2016 Last Documented On 7 5:23PM ; [facility] Streptococcal sore throat WALK-IN CLINIC SICK VISIT with LUCIE A KAHRIG [facility]UC[facility]AN-BC 02/26/2016 Last Documented On 7 7:16PM ; [facility] Acute frontal sinusitis SAME DAY SICK VISIT with LUCIE A KAHRIG [facility] 01/12/2016 Last Documented On 6 1:55PM ; [facility] Acute sinusitis SAME DAY SICK VISIT with RHETT PERLA EDUCATION DEAN-C 10/20/2015 Last Documented On 6 4:03PM ; [facility] Acute sinusitis SAME DAY SICK VISIT with CATHARI SOFY A KAHRIG EDUCATION [facility]-BC 08/24/2015 Last Documented On 6 3:42PM ; [facility] Acute sinusitis SICK VISIT with TYSHAWN Macario 03/25/2009 Last Documented On 0 10:55AM ; [facility] Tobacco Abuse SICK VISIT with TYSHAWN Macario 03/25/2009 Last Documented On 0 10:55AM ; [facility] FOLLOW UP EXAM with GILL HAYNES MD 05/24/2008 Last Documented On 9 4:08PM ; [facility] Instructions Includes: Instructions for all patient encounters Instructions to patient Go to the emergency room if condition worsens Last Documented On 3 4:27PM ; [facility] Go to the emergency room if condition worsens Last Documented On 3 4:27PM ; [facility] Watch for signs/symptoms of infection Last Documented On 3 4:27PM ; [facility] Watch for signs/symptoms of infection, return to the clinic if seen Last Documented On 3 4:27PM ; [facility] Go to the emergency room if condition worsens Last Documented On 3 7:15PM ; [facility] Watch for signs/symptoms of infection Last Documented On 3 7:15PM ; [facility] Watch for signs/symptoms of infection, return to the clinic if seen Last Documented On 3 7:15PM ; [facility] Intervention and counseling on cessation of tobacco use Last Documented On 3 7:07PM ; [facility] Go to the emergency room if condition worsens Last Documented On 3 7:00PM ; [facility] Watch for signs/symptoms of infection Last Documented On 3 7:00PM ; [facility] Watch for signs/symptoms of infection, return to the clinic if seen Last Documented On 3 7:00PM ; [facility] Instructions for patient Last Documented On 3 7:42AM ; [facility] Intervention and counseling on cessation of tobacco use Last Documented On 3 7:03PM ; [facility] Go to the emergency room if condition worsens Last Documented On 2 6:03PM ; [facility] Watch for signs/symptoms of infection Last Documented On 2 6:03PM ; [facility] Watch for signs/symptoms of infection, return to the clinic if seen Last Documented On 2 6:03PM ; [facility] Go to the emergency room if condition worsens Last Documented On 2 3:45PM ; [facility] Watch for signs/symptoms of infection, return to the clinic if seen Last Documented On 2 3:45PM ; [facility] Go to the emergency room if condition worsens Last Documented On 2 6:31PM ; [facility] Watch for signs/symptoms of infection Last Documented On 2 6:31PM ; [facility] Watch for signs/symptoms of infection, return to the clinic if seen Last Documented On 2 6:31PM ; [facility] [facility] Go to the emergency room if condition worsens Last Documented On 1 6:34PM ; [facility] Watch for signs/symptoms of infection Last Documented On 1 6:34PM ; [facility] Watch for signs/symptoms of infection, return to the clinic if seen Last Documented On 1 6:34PM ; [facility] Intervention and counseling on cessation of tobacco use Last Documented On 1 5:45PM ; [facility] Watch for signs/symptoms of infection, return to the clinic if seen Last Documented On 1 7:09PM ; [facility] Go to the emergency room if condition worsens Last Documented On 0 7:30PM ; [facility] Watch for signs/symptoms of infection Last Documented On 0 7:30PM ; [facility] Watch for signs/symptoms of infection, return to the clinic if seen Last Documented On 0 7:30PM ; [facility] Intervention and counseling on cessation of tobacco use : Patient recieved smoking cessation handout Last Documented On 0 7:30PM ; [facility] Go to the emergency room if condition worsens Last Documented On 0 12:30PM ; [facility] Watch for signs/symptoms of infection Last Documented On 0 12:30PM ; [facility] Watch for signs/symptoms of infection, return to the clinic if seen Last Documented On 0 12:30PM ; [facility] Intervention and counseling on cessation of tobacco use : Patient recieved smoking cessation handout Last Documented On 0 12:30PM ; [facility] Go to the emergency room if condition worsens Last Documented On 0 6:48PM ; [facility] Watch for signs/symptoms of infection Last Documented On 0 6:48PM ; [facility] Watch for signs/symptoms of infection, return to the clinic if seen Last Documented On 0 6:48PM ; [facility] Intervention and counseling on cessation of tobacco use : Patient recieved smoking cessation handout Last Documented On 0 6:33PM ; [facility] Go to the emergency room if condition worsens Last Documented On 9 4:57PM ; [facility] Watch for signs/symptoms of infection Last Documented On 9 4:57PM ; [facility] Watch for signs/symptoms of infection, return to the clinic if seen Last Documented On 9 4:57PM ; [facility] Go to the emergency room if condition worsens Last Documented On 9 1:16PM ; [facility] Go to the emergency room if condition worsens Last Documented On 9 3:18PM ; [facility] Watch for signs/symptoms of infection Last Documented On 9 3:18PM ; [facility] Watch for signs/symptoms of infection, return to the clinic if seen Last Documented On 9 3:18PM ; [facility] Watch for signs/symptoms of infection, return to the clinic if seen Last Documented On 9 7:26PM ; [facility] Watch for signs/symptoms of infection, return to the clinic if seen Last Documented On 9 7:38PM ; [facility] Watch for signs/symptoms of infection, return to the clinic if seen Last Documented On 9 2:47PM ; [facility] Return to the clinic if cond ition worsens or new symptoms arise Last Documented On 9 12:27PM ; [facility] Watch for signs/symptoms of infection Last Documented On 9 12:27PM ; [facility] Watch for signs/symptoms of infection, return to the clinic if seen Last Documented On 9 12:27PM ; [facility] Go to the emergency room if condition worsens Last Documented On 9 3:18PM ; [facility] Watch for signs/symptoms of infection Last Documented On 9 3:18PM ; [facility] Watch for signs/symptoms of infection, return to the clinic if seen Last Documented On 9 3:18PM ; [facility] Go to the emergency room if condition worsens Last Documented On 8 2:18PM ; [facility] Intervention and counseling on cessation of tobacco use Last Documented On 8 6:51PM ; [facility] Intervention and counseling on cessation of tobacco use, 3-10 minutes Last Documented On 8 6:51PM ; [facility] Go to the emergency room if condition worsens Last Documented On 8 12:58PM ; [facility] Watch for signs/symptoms of infection Last Documented On 8 12:58PM ; [facility] Watch for signs/symptoms of infection, return to the clinic if seen Last Documented On 8 12:58PM ; [facility] Go to the emergency room if condition worsens Last Documented On 7 3:53PM ; [facility] Watch for signs/symptoms of infection Last Documented On 7 3:53PM ; [facility] Watch for signs/symptoms of infection, return to the clinic if seen Last Documented On 7 3:53PM ; [facility] Education and Decision Aids were provided during visit for: Patient education about anti biotics: need to finish even if feeling better Last Documented On 3 4:27PM ; [facility] Patient education about anti biotics: need to finish even if feeling better Last Documented On 3 7:15PM ; [facility] Patient education about anti biotics: need to finish even if feeling better Last Documented On 3 7:00PM ; [facility] Patient education about anti biotics: need to finish even if feeling better Last Documented On 2 6:31PM ; [facility] Patient education about anti biotics: need to finish even if feeling better Last Documented On 1 6:34PM ; [facility] Patient education about anti biotics: need to finish even if feeling better Last Documented On 0 7:30PM ; [facility] Patient education about anti biotics: need to finish even if feeling better Last Documented On 0 12:30PM ; [facility] Patient education about anti biotics: need to finish even if feeling better Last Documented On 0 6:48PM ; [facility] Patient education about anti biotics: need to finish even if feeling better Last Documented On 9 4:57PM ; [facility] Patient education about anti biotics: need to finish even if feeling better Last Documented On 9 3:18PM ; [facility] Patient education about anti biotics: need to finish even if feeling better Last Documented On 9 3:18PM ; [facility] Discussed concerns about tob acco use Last Documented On 8 6:51PM ; [facility] Health seminar on smoking ce ssation Last Documented On 8 6:51PM ; [facility] Patient education about anti biotics: need to finish even if feeling better Last Documented On 8 12:58PM ; [facility] Medical Equipment - Implanted Devices Includes: Current and historical Devices No Medical Equipment Recorded Medications Includes: Current and historical Medications Current Medications (continue as prescribed) Amoxicillin-Pot Clavulanate 600-42.9 MG/5ML Oral Suspension Reconstituted 02/13/2023 Provider: BRI THOMPSON Diagnosis: Cellulitis and a bscess of mouth take 7 ml twice daily for 10days Last Documented On 3 4:36PM By BRI THOMPSON ; [facility] predniSONE 20 MG Oral Tablet 12/15/2022 Provider: BRI THOMPSON Diagnosis: Chronic obstruct kemi pulmonary disease, unspecified One tablet twice a day Last Documented On 3 7:27PM By BRI THOMPSON ; [facility] Ipratropium-Albuterol 0.5-2. 5 (3) MG/3ML Inhalation Solution 11/20/2022 Provider: BRI GRESHAM [facility] Diagnosis: Chronic obstruct kemi pulmonary disease, unspecified one vial via nebulization ev lacey 6 hours as needed dispense one box Last Documented On 3 7:08PM By BRI YING [facility] ; [facility] Doxycycline Hyclate 100 MG O ral Capsule 11/20/2022 Provider: BRI YING [facility] Diagnosis: Cough, unspecifi ed 1 CAPSULE TWO TIMES A DAY Last Documented On 3 7:08PM By BRI YING [facility] ; [facility] Trelegy Ellipta 200-62.5-25 MCG/ACT Inhalation Aerosol Powder Breath Activated 06/23/2022 Provider: Diagnosis: Last Documented On 07/02/2022 5:43PM By Gretchen Dial MA ; [facility] busPIRone HCl 5 MG Oral Tablet 06/10/2022 Provider: Diagnosis: Last Documented On 07/02/2022 5:43PM By Gretchen Dial MA ; [facility] Indomethacin 50 MG Oral Capsule 05/28/2022 Provider: Diagnosis: Last Documented On 07/02/2022 5:43PM By Gretchen Dial MA ; [facility] Nortriptyline HCl 10 MG Oral Capsule 05/28/2022 Prov ider: Diagnosis: Last Documented On 07/02/2022 5:43PM By Gretchen Dial MA ; [facility] Albuterol Sulfate (2.5 MG/3ML) 0.083% Inhalation Nebulization solution 01/06/2022 Provider: RHETT ORTIZ Diagnosis: Chr obstructive pulmon disease with (acute) lower resp infct 3 ml inahled q6 hours prn for wheezing Last Documented On 2 5:51PM By Rhett ORTIZ ; [facility] Crestor 5MG Oral Tablet 09/08/2018 Provider: Diagnosis: Wednesday and Wednesday Last Documented On 09/08/2018 7:12PM By LINDA VO ; [facility] Cyanocobalamin 1000MCG/ML Injection Solution 8 Provider: Diagnosis: inj twice monthyl Last Documented On 8 6:39PM By LUCIE SEGUNDO [facility] ; [facility] Past Medications on file Amoxicillin-Pot Clavulanate 600-42.9 MG/5ML Oral Suspension Reconstituted 12/15/2022 - 02/13/2023 Provider: BRI IVORY [facility]- Diagnosis: Acute cough take 7 ml BID x 10 days Last Documented On 3 4:13PM By Mitra Rose [facility] ; [facility] predniSONE 20 MG Oral Tablet 11/20/2022 - 02/13/2023 Provider: BRI YIGN [facility] Diagnosis: Cough, unspecifi ed take one tablet twice a day for five days Last Documented On 3 4:13PM By Mitra Rose [facility] ; [facility] Azithromycin 250 MG Oral Tablet 10/07/2022 - 11/06/2022 Provider: RHETT [facility]LL [facility] Diagnosis: as directed take 2 tab po qd for 1 day then take 1 tab po qd for 4 days Last Documented On 11/06/2022 4:28PM By LINDA GONZALEZ [facility] ; [facility] Benzonatate 200 MG Oral Capsule 10/06/2022 - Provider: BELINDA HUTCHINSON APRN Diagnosis: Take one capsule three times daily as needed for cough Last Documented On 10/06/2022 6:00PM By Belinda Hutchinson APRN ; [facility] Ventolin HFA 108 (90 Base) MCG/ACT Inhalation Aerosol Solution 10/06/2022 - 11/05/2022 Provider: BELINDA Croft PRN Diagnosis: inhale 2 puffs every 4-6 sami rs as needed for shortness of breath, cough, or wheezing Last Documented On 10/06/2022 6:00PM By Belinda Hutchinson APRN ; [facility] Amoxicillin-Pot Clavulanate 600-42.9 MG/5ML Oral Suspension Reconstituted 07/08/2022 - 02/13/2023 Provider: BELINDA Croft PRN Diagnosis: take 7 ml twice daily for 10days Last Documented On 3 4:28PM By BRI YING [facility] ; [facility] Amoxicillin-Pot Clavulanate 875-125 MG Oral Tablet 07/08/2022 - 07/18/2022 Provider: BELINDA Goetz APRN Diagnosis: One tablet twice a day Last Documented On 07/08/2022 7:19PM By Belinda Hutchinson APRN ; [facility] Azithromycin 250 MG Oral Tablet 07/02/2022 - 11/06/2022 Provider: RHETT HYATTP-C Diagnosis: Chr obstructive pulmon disease with (acute) lower resp infct as directed take 2 tab po qd for 1 day then take 1 tab po qd for 4 days Last Documented On 11/06/2022 4:28PM By LINDA VO ; [facility] predniSONE 20 MG Oral Tablet 07/02/2022 - 11/06/2022 Provider: RHETT ORTIZ Diagnosis: Chr obstructive pulmon disease with (acute) lower resp infct as directed 2 tab po qd x 5 Last Documented On 11/06/2022 4:28PM By LINDA VO ; [facility] Doxycycline Hyclate 100 MG Oral Capsule 05/29/2022 - 07/02/2022 Provider: RHETT STRATTON-C Diagnosis: One tablet twice a day Last Documented On 07/02/2022 5:44PM By Gretchen Dial MA ; [facility] predniSONE 20 MG Oral Tablet 01/06/2022 - 05/28/2022 Provider: RHETT ORTIZ Diagnosis: Chr obstructive pulmon disease with (acute) lower resp infct as directed 2 tab po qd x 5 Last Documented On 3 5:27PM By MITRA VO ; [facility] Doxycycline Hyclate 100 MG Oral Capsule 01/06/2022 - 05/28/2022 Provider: RHETT ORTIZ Diagnosis: Chr obstructive pulmon disease with (acute) lower resp infct One tablet twice a day Last Documented On 3 5:27PM By MITRA VO ; [facility] Amoxicillin-Pot Clavulanate 400-57 MG/5ML Oral Suspension Reconstituted 12/02/2021 - 01/06/2022 Provider: BRI HYATTP-BC Diagnosis: Acute pharyngiti s, unspecified take 10 ml BID x 10 days Last Documented On 01/06/2022 5:22PM By Samy VO ; [facility] predniSONE 20 MG Oral Tablet 10/10/2021 - 11/20/2022 Provider: SIMIN ORTIZ Diagnosis: Cough, unspecifi ed take one tablet twice a day for five days Last Documented On 3 6:59PM By BRI YING [facility] ; [facility] ProAir HFA 108 (90 Base) MCG/ACT Inhalation Aerosol Solution 10/10/2021 - 11/09/2021 Provider: SIMIN ORTIZ Diagnosis: Cough, unspecifi ed as directed 1-2 puffs q4-6 hours prn Last Documented On 2 1:13PM By BRI YING [facility] ; [facility] predniSONE 10 MG Oral Tablet 07/24/2021 - 12/02/2021 Provider: BRI YING [facility] Diagnosis: Pruritus, unspec ified One tablet twice a day Last Documented On 12/02/2021 5:54PM By LINDA GONZALEZ Lang ; [facility] predniSONE 10 MG Oral Tablet 07/04/2021 - 07/24/2021 Provider: BRI HYATTP-C Diagnosis: Chronic obstruct kemi pulmonary disease, unspecified take 2 tabs daily X 3 days, 1 tab daily X 3 days, then stop. Last Documented On 07/24/2021 4:27PM By ARELIS VO ; [facility] ZyrTEC Allergy 10 MG Oral Tablet 06/26/2021 - 01/06/2022 Provider: BRI YING [facility] Diagnosis: Otalgia, bilater al One tablet daily Last Documented On 01/06/2022 5:22PM By Samy VO ; [facility] Montelukast Sodium 10 MG Oral Tablet 05/29/2021 - 01/06/2022 Provider: BRI YING [facility] Diagnosis: Allergic rhiniti s, unspecified One tablet daily Last Documented On 01/06/2022 5:22PM By Samy VO ; [facility] predniSONE 10 MG Oral Tablet 05/29/2021 - 06/26/2021 Provider: BRI STRATTON-BC Diagnosis: Cough, unspecifi ed One tablet twice a day Last Documented On 06/26/2021 2:39PM By LUI QUEVEDO Lang ; [facility] Amoxicillin-Pot Clavulanate 400-57 MG/5ML Oral Suspension Reconstituted 05/03/2021 - 06/26/2021 Provider: RHETT PERLA [facility] Diagnosis: Acute sinusitis, unspecified 10 ml po BID x 10 Last Documented On 06/26/2021 2:39PM By LUI QUEVEDO Lang ; [facility] Amoxicillin-Pot Clavulanate 400-57 MG/5ML Oral Suspension Reconstituted 03/17/2021 - 06/26/2021 Provider: SIMIN HYATTP-C Diagnosis: Acute maxillary sinusitis, unspecified take 10mL by mouth twice daily for ten days. Last Documented On 06/26/2021 2:39PM By LUI VO ; [facility] predniSONE 10 MG Oral Tablet 03/17/2021 - 05/29/2021 Provider: SIMIN LAMA [facility] Diagnosis: Cough, unspecifi ed One tablet twice a day Last Documented On 6:28PM By BRI YING [facility] ; [facility] Mupirocin 2% External Ointment 03/09/2021 - 06/26/2021 Provider: LEANDRA TOLEDO [facility] Diagnosis: Apply twice a day Last Documented On 06/26/2021 2:39PM By LIU QUEVEDO [facility] ; [facility] Amoxicillin-Pot Clavulanate 400-57 MG/5ML Oral Suspension Reconstituted 01/27/2021 - 03/17/2021 Provider: SIMIN [facility]AMA [facility] Diagnosis: Streptococcal pharyngitis take 10mL by mouth twice daily for ten days. Last Documented On 03/17/2021 5:37PM By Simin STRATTON ; [facility] Amoxicillin-Pot Clavulanate 400-57 MG/5ML Oral Suspension Reconstituted 12/07/2020 - 01/27/2021 Provider: BRI HYATTP-BC Diagnosis: Wheezing as directed Last Documented On 01/27/2021 2:39PM By Simin STRATTON ; [facility] predniSONE 10 MG Oral Tablet 12/05/2020 - 05/03/2021 Provider: RHETT HYATTP-C Diagnosis: Acute bronchitis , unspecified 2 tab po qd x 3 then 1 tab po qd x 3 Last Documented On 05/03/2021 4:54PM By LINDA VO ; [facility] Amoxicillin-Pot Clavulanate 400-57 MG/5ML Oral Suspension Reconstituted 10/25/2020 - 12/07/2020 Provider: BRI STRATTON-BC Diagnosis: Wheezing as directed Last Documented On 2:07PM By BRI YING [facility] ; [facility] predniSONE 10 MG Oral Tablet 10/25/2020 - 03/17/2021 Provider: BRI HYATTP-BC Diagnosis: Wheezing One tablet twice a day Last Documented On 03/17/2021 5:37PM By Simin STRATTON ; [facility] Medrol 4 MG Oral Tablet Therapy Pack 10/11/2020 - 06/26/2021 Provider: LEANDRA TOLEDO [facility] Diagnosis: Cough as directed Last Documented On 06/26/2021 2:39PM By LUI VO ; [facility] Amoxicillin-Pot Clavulanate 400-57 MG/5ML Oral Suspension Reconstituted 08/28/2020 - 05/03/2021 Provider: RHETT HYATTP-Amirah Diagnosis: Periapical absce ss without sinus 10ml po BID x 14 Last Documented On 05/03/2021 4:54PM By LINDA VO ; [facility] predniSONE 10 MG Oral Tablet 07/24/2020 - 08/28/2020 Provider: RHETT ORTIZ Diagnosis: Other specified disorders of Eustachian tube, bilateral One tablet twice a day Last Documented On 7:42PM By Rhett STRATTON-C ; [facility] Azithromycin 250 MG Oral Tablet 07/24/2020 - 08/28/2020 Provider: RHETT ORTIZ Diagnosis: Other specified disorders of Eustachian tube, bilateral as directed take 2 tab po qd for 1 day then take 1 tab po qd for 4 days Last Documented On 1 7:42PM By Rhett ORTIZ ; [facility] Amoxicillin-Pot Clavulanate 400-57 MG/5ML Oral Suspension Reconstituted 06/14/2020 - 06/26/2021 Provider: SIMIN STRATTON-Amirah Diagnosis: Other specified disorders of teeth and supporting structures take 10mL by mouth twice daily for ten days. Last Documented On 06/26/2021 2:39PM By LUI VO ; [facility] predniSONE 20 MG Oral Tablet 11/16/2019 - 08/28/2020 Provider: BRI STRATTON-DIEGO Diagnosis: Acute sinusitis, unspecified One tablet twice a day Last Documented On 1 7:42PM By Rhett ORTIZ ; [facility] Amoxicillin-Pot Clavulanate 600-42.9 MG/5ML Oral Suspension Reconstituted 11/16/2019 - 08/28/2020 Provider: BRI THOMPSON Diagnosis: Acute sinusitis, unspecified as directed Last Documented On 1 7:42PM By Rhett ORTIZ ; [facility] predniSONE 20 MG Oral Tablet 10/26/2019 - 11/16/2019 Provider: BRI THOMPSON Diagnosis: Acute sinusitis, unspecified One tablet twice a day Last Documented On 0 6:38PM By BRI THOMPSON ; [facility] Amoxicillin-Pot Clavulanate 600-42.9 MG/5ML Oral Suspension Reconstituted 10/26/2019 - 11/16/2019 Provider: BRI THOMPSON Diagnosis: Acute sinusitis, unspecified as directed Last Documented On 0 6:38PM By BRI STRATTON-DIEGO ; [facility] Singulair 10 MG Oral Tablet 07/16/2019 - 06/26/2021 Provider: BRI STRATTON-DIEGO Diagnosis: Allergic rhiniti s, unspecified One tablet daily Last Documented On 06/26/2021 2:39PM By LUI VO ; [facility] Doxycycline Hyclate 100 MG Oral Capsule 07/16/2019 - 08/28/2020 Provider: BRI THOMPSON Diagnosis: Acute maxillary sinusitis, unspecified 1 CAPSULE TWO TIMES A DAY Last Documented On 1 7:42PM By Rhett ORTIZ ; [facility] Azelastine HCl 0.15% Nasal Solution 07/16/2019 - 06/26/2021 Provider: BRI THOMPSON Diagnosis: Allergic rhiniti s, unspecified as directed Last Documented On 06/26/2021 2:39PM By LUI VO ; [facility] Medrol 4 MG Oral Tablet Therapy Pack 07/16/2019 - 08/28/2020 Provider: BRI THOMPSON Diagnosis: Allergic rhiniti s, unspecified as directed Last Documented On 1 7:42PM By Rhett ORTIZ ; [facility] predniSONE 10 MG Oral Tablet 06/30/2019 - 08/28/2020 Provider: BRI THOMPSON Diagnosis: Acute maxillary sinusitis, unspecified as directed Last Documented On 1 7:43PM By Rhett ORTIZ ; [facility] Amoxicillin-Pot Clavulanate 400-57 MG/5ML Oral Suspension Reconstituted 06/30/2019 - 08/28/2020 Provider: BRI THOMPSON Diagnosis: Acute maxillary sinusitis, unspecified 10ml po BID x 10 Last Documented On 1 7:43PM By Rhett ORTIZ ; [facility] predniSONE 10 MG Oral Tablet 02/10/2019 - 06/30/2019 Provider: BRI THOMPSON Diagnosis: Acute maxillary sinusitis, unspecified as directed Last Documented On 0 6:49PM By BRI THOMPSON ; [facility] predniSONE 20 MG Oral Tablet 02/05/2019 - 08/28/2020 Provider: RHETT ORTIZ Diagnosis: Acute sinusitis, unspecified One tablet daily Last Documented On 1 7:43PM By Rhett ORTIZ ; [facility] Amoxicillin-Pot Clavulanate 400-57 MG/5ML Oral Suspension Reconstituted 02/05/2019 - 06/30/2019 Provider: RHETT ORTIZ Diagnosis: Streptococcal pharyngitis 10ml po BID x 10 Last Documented On 0 6:49PM By BRI THOMPSON ; [facility] predniSONE 20 MG Oral Tablet 12/10/2018 - 02/05/2019 Provider: RHETT ORTIZ Diagnosis: Acute sinusitis, unspecified One tablet daily Last Documented On 02/05/2019 12:27PM By KERRIE VO ; [facility] Amoxicillin-Pot Clavulanate 400-57 MG/5ML Oral Suspension Reconstituted 12/10/2018 - 02/05/2019 Provider: RHETT ORTIZ Diagnosis: Acute sinusitis, unspecified 10 ml po BID Last Documented On 02/05/2019 12:27PM By KERRIE VO ; [facility] Xanax 0.25 MG Oral Tablet 12/10/2018 - 10/02/2022 Prov ider: Diagnosis: Last Documented On 3 7:03PM By Mitra VO ; [facility] predniSONE 10 MG Oral Tablet 10/14/2018 - 12/10/2018 Provider: RHETT ORTIZ Diagnosis: Acute bronchitis , unspecified 2 tab po qd x 3 days then 1 tab po qd x 3 days. Last Documented On 12/10/2018 1:10PM By LINDA VO ; [facility] Amoxicillin-Pot Clavulanate 400-57 MG/5ML Oral Suspension Reconstituted 10/12/2018 - 12/10/2018 Provider: BRI THOMPSON Diagnosis: Acute maxillary sinusitis, unspecified as directed Last Documented On 12/10/2018 1:10PM By LINDA VO ; [facility] Medrol 4MG Oral Tablet Therapy Pack 10/07/2018 - 10/14/2018 Provider: BRI THOMPSON Diagnosis: Acute maxillary sinusitis, unspecified as directed Last Documented On 10/14/2018 6:18PM By KERRIE VO ; [facility] Azithromycin 500MG Oral Tablet 10/07/2018 - 10/14/2018 Provider: BRI THOMPSON Diagnosis: Acute maxillary sinusitis, unspecified One tablet daily Last Documented On 10/14/2018 6:18PM By KERRIE VO ; [facility] Amoxicillin-Pot Clavulanate 400-57MG/5ML Oral Suspension Reconstituted 09/18/2018 - 10/07/2018 Provider: RHETT ORTIZ Diagnosis: Acute sinusitis, unspecified 10 ml pO BID Last Documented On 10/07/2018 2:55PM By LINDA VO ; [facility] Amoxicillin-Pot Clavulanate 400-57MG/5ML Oral Suspension Reconstituted 09/02/2018 - 09/12/2018 Provider: RHETT ORTIZ Diagnosis: Furuncle of back [any part, except buttock] 10 ml po BDI Last Documented On 09/12/2018 6:25PM By LINDA VO ; [facility] [facility] predniSONE 20MG Oral Tablet 06/24/2018 - 09/02/2018 Provider: RHETT ORTIZ Diagnosis: Acute sinusitis, unspecified One tablet daily Last Documented On 9 6:40PM By Becca Jackson MA ; [facility] Amoxicillin-Pot Clavulanate 400-57MG/5ML Oral Suspension Reconstituted 06/24/2018 - 09/02/2018 Provider: RHETT ORTIZ Diagnosis: Acute sinusitis, unspecified 10 ml po BID x10 Last Documented On 9 6:40PM By Becca Jackson MA ; [facility] Amoxicillin-Pot Clavulanate 600-42.9MG/5ML Oral Suspension, when reconstituted 05/07/2018 - 06/24/2018 Provider: BRI THOMPSON Diagnosis: Acute maxillary sinusitis, unspecified as directed Last Documented On 06/24/2018 12:11PM By Mansoor VO ; [facility] Amoxicillin-Pot Clavulanate 250-62.5MG/5ML Oral Suspension Reconstituted 02/06/2018 - 05/07/2018 Provider: RHETT PERLA [facility] Diagnosis: Acute sinusitis, unspecified 10 ml po BID Last Documented On 05/07/2018 3:01PM By Ami Thompson MA ; [facility] Amoxicillin-Pot Clavulanate 600-42.9MG/5ML Oral Suspension Reconstituted 09/09/2017 - 09/02/2018 Provider: LUCIE SEGUNDO [facility] Diagnosis: Acute pharyngiti s, unspecified 7 ml twice daily for ten days Last Documented On 9 6:40PM By Becca Jackson MA ; [facility] Amoxicillin 400MG/5ML Oral Suspension Reconstituted 04/06/2017 - 09/09/2017 Provider: BRI YING [facility] Diagnosis: Acute maxillary sinusitis, unspecified as directed Last Documented On 8 6:38PM By LUCIE SEGUNDO [facility] ; [facility] PredniSONE 20MG Oral Tablet 04/06/2017 - 09/09/2017 Provider: BRI YING [facility] Diagnosis: Acute maxillary sinusitis, unspecified One tablet twice a day Last Documented On 8 6:38PM By LUCIE SEGUNDO [facility]- ; [facility] PredniSONE 20MG Oral Tablet 01/31/2017 - 04/06/2017 Provider: BRI YING [facility] Diagnosis: Acute maxillary sinusitis, unspecified One tablet twice a day Last Documented On 8 12:23PM By Alaina Dial CMA ; [facility] Amoxicillin-Pot Clavulanate 600-42.9MG/5ML Oral Suspension Reconstituted 01/31/2017 - 04/06/2017 Provider: BRI YING [facility] Diagnosis: Acute maxillary sinusitis, unspecified as directed Last Documented On 8 12:23PM By Alaina Dial CMA ; [facility] PredniSONE 20MG Oral Tablet 11/15/2016 - 04/06/2017 Provider: LUCIE SEGUNDO [facility] Diagnosis: Acute serous melba tis media, right ear One tablet twice a day Last Documented On 8 12:23PM By Alaina Dial CMA ; [facility] Amoxicillin-Pot Clavulanate 600-42.9MG/5ML Oral Suspension, when reconstituted 11/15/2016 - 09/02/2018 Provider: LUCIE SEGUNDO [facility] Diagnosis: Acute serous melba tis media, right ear 7 ml twice daily x 10 days Last Documented On 9 6:40PM By Becca Jackson MA ; [facility] Amoxicillin-Pot Clavulanate 600-42.9MG/5ML Oral Suspension Reconstituted 09/09/2016 - 11/15/2016 Provider: LUCIE SEGUNDO [facility] Diagnosis: Acute serous melba tis media, right ear 7 ml twice daily for ten days Last Documented On 7 2:10PM By LUCIE SEGUNDO [facility] ; [facility] Amoxicillin-Pot Clavulanate 600-42.9 MG/5ML Suspension Reconstituted 02/26/2016 - 09/09/2016 Provider: LUCIE SEGUNDO [facility] Diagnosis: Streptococcal pharyngitis 7 ml twice daily for ten days Last Documented On 7 5:05PM By MITRA VO ; [facility] PredniSONE 20 MG Tablet 02/26/2016 - 09/09/2016 Provider: LUCIE SEGUNDO [facility] Diagnosis: Acute maxillary sinusitis, unspecified One tablet twice a day Last Documented On 7 5:05PM By MITRA VO ; [facility] Amoxicillin-Pot Clavulanate 600-42.9 MG/5ML Suspension Reconstituted 01/12/2016 - 02/26/2016 Provider: LUCIE SEGUNDO [facility] Diagnosis: Acute frontal sinusitis, unspecified 7 ml twice daily for ten days Last Documented On 02/26/2016 6:40PM By DOROTHY VO ; [facility] PredniSONE 20 MG Tablet 01/12/2016 - 02/26/2016 Provider: LUCIE SEGUNDO [facility] Diagnosis: Acute frontal sinusitis, unspecified One tablet twice a day Last Documented On 02/26/2016 6:41PM By DOROTHY VO ; [facility] Medrol 4 MG Tablet Therapy Pack 10/20/2015 - 01/12/2016 Provider: RHETT PERLA [facility] Diagnosis: Acute sinusitis, unspecified as directed Last Documented On 6 1:48PM By LUCIE SEGUNDO [facility] ; [facility] Ventolin HFA 108 (90 Base) MCG/ACT Aerosol, solution 10/20/2015 - 01/12/2016 Provider: RHETT ORTIZ Diagnosis: Acute upper resp iratory infection, unspecified 2 puffs four times a day Last Documented On 6 1:48PM By LUCIE SEGUNDO [facility] ; [facility] Amoxicillin-Pot Clavulanate 600-42.9 MG/5ML Suspension, when reconstituted 10/20/2015 - 01/12/2016 Provider: RHETT ORTIZ Diagnosis: Acute sinusitis, unspecified 7 ml po BID Last Documented On 6 1:48PM By LUCIE SEGUNDO [facility] ; [facility] PredniSONE 20 MG Tablet 08/24/2015 - 10/20/2015 Provider: [facility] Diagnosis: Acute sinusitis, unspecified One tablet twice a day Last Documented On 10/20/2015 1:54PM By KAYDEN VO ; [facility] Amoxicillin-Pot Clavulanate 600-42.9 MG/5ML Suspension Reconstituted 08/24/2015 - 10/20/2015 Provider: LUCIE HYATTPDENVER Diagnosis: Acute sinusitis, unspecified 7 ml twice daily for ten days Last Documented On 10/20/2015 1:54PM By KAYDEN VO ; [facility] Zithromax Z-Sergey 250 MG OR TABS 06/01/2008 - 09/02/2018 Provider: NICKI HAYNES MD Diagnosis: ACUTE SINUSITIS NOS Last Documented On 9 6:40PM By Becca Jackson MA ; [facility] Zithromax Z-Sergey 250 MG OR TABS 05/28/2008 - 09/02/2018 Provider: INCKI HAYNES MD Diagnosis: Last Documented On 9 6:40PM By Becca Jackson MA ; [facility] Vitamin D 94282 UNIT OR CAPS 05/24/2008 - 09/02/2018 P rovider: NICKI HAYNES MD Diagnosis: Last Documented On 9 6:40PM By Becca Jackson MA ; [facility] Prevacid 30 MG OR CPDR 05/24/2008 - 09/02/2018 Provide r: NICKI HAYNES MD Diagnosis: Last Documented On 9 6:40PM By Becca Jackson MA ; [facility] ZyrTEC Allergy 10 MG OR TABS 05/24/2008 - 09/02/2018 P rovider: NICKI HAYNES MD Diagnosis: Last Documented On 9 6:40PM By Becca Jackson MA ; [facility] predniSONE 10 MG OR TABS 05/24/2008 - 09/02/2018 Provider: NICKI HAYNES MD Diagnosis: Nonspecif Skin E rupt NEC 6 day 1-34 day 4-62 day 7-91 day 10-12 Last Documented On 9 6:40PM By Becca Jackson MA ; [facility] Medications Administered Includes: Administered Medications in patient's chart Medications Administered Diagnosis Date Pro vider DEPO-Medrol 80 MG/ML IJ SUSP Acute maxillary sinusitis, unspecified 02/10/2019 BRI YING [facility] Last Documented On 9 5:04PM By Ami Thompson MA ; [facility] DEPO-Medrol 80 MG/ML IJ SUSP 01/06/2022 RHETT BRUMFIELDCLAIR [facility] Last Documented On 2 5:49PM By Samy VO ; [facility] DEPO-Medrol 40 MG/ML IJ SUSP Acute bronchitis, unspecified 12/05/2020 RHETT BR[facility]FIELDCLAIR [facility] Last Documented On 1 6:34PM By Rhett Perla EDUCATION DEAN-Amirah ; [facility] Cyanocobalamin 1000 MCG/ML IJ SOLN Vitamin B12 deficiency anemia, unspecified 11/28/2021 RHETT ROGELAIR [facility] Rt Deltoid IM Last Documented On 2 2:27PM By LINDA VO ; [facility] DEPO-Medrol 80 MG/ML IJ SUSP 11/20/2022 BRI YING [facility] Last Documented On 3 7:03PM By MITRA VO ; [facility] Cyanocobalamin 1000 MCG/ML IJ SOLN Vitamin B12 deficiency anemia, unspecified 11/06/2022 BRI YING [facility] Rt deltoid IM Last Documented On 3 4:46PM By LINDA GONZALEZ Lang ; [facility] DEPO-Medrol 80 MG/ML IJ SUSP 10/25/2020 BRI YING [facility] Last Documented On 1 6:32PM By Tori VO ; [facility] DEPO-Medrol 80 MG/ML IJ SUSP Acute sinusitis, unspecified 10/26/2019 BRI YING [facility] Patient tolerated injection well. Last Documented On 0 7:13PM By KERRIE VO ; [facility] DEPO-Medrol 40 MG/ML IJ SUSP Acute bronchitis, unspecified 10/14/2018 RHETT Cordova [facility] Administered 40mg/mLPatient tolerated in jection well. Last Documented On 9 6:44PM By KERRIE VO ; [facility] Cyanocobalamin 1000 MCG/ML IJ SOLN Vitamin B12 deficiency anemia, unspecified 10/02/2022 RHETT Cordova [facility] Last Documented On 3 7:30PM By Mitra VO ; [facility] Cyanocobalamin 1000 MCG/ML IJ SOLN Vitamin B12 deficiency anemia, unspecified 08/25/2021 SIMIN LAMA EDUC[facility] Last Documented On 2 5:15PM By ARELIS VO ; [facility] Cyanocobalamin 1000 MCG/ML IJ SOLN Vitamin B12 deficiency anemia, unspecified 08/16/2022 BRI YING [facility] pt tolerated well Last Documented On 3 3:13PM By Liza VO ; [facility] DEPO-Medrol 80 MG/ML IJ SUSP 07/24/2021 BRI YING [facility] Last Documented On 2 4:49PM By ARELIS VO ; [facility] DEPO-Medrol 80 MG/ML IJ SUSP Acute maxillary sinusitis, unspecified 07/16/2019 BRI Donna STEPAN [facility]-BC Last Documented On 0 12:18PM By Ami Thompson MA ; [facility] methylPREDNISolone Acetate 80 MG/ML IJ SUSP 07/02/2022 RHETT Cordova [facility] Last Documented On 3 6:09PM By Gretchen Dial MA ; [facility] DEPO-Medrol 80 MG/ML IJ SUSP Acute maxillary sinusitis, unspecified 06/30/2019 BRI Donna [facility] Last Documented On 0 7:04PM By Lore Kennedy A ; [facility] Cyanocobalamin 1000 MCG/ML IJ SOLN 2021 BRI Thompson STEPAN [facility] Last Documented On 2 2:40PM By LUI OQUENDOA ; [facility] Cyanocobalamin 1000 MCG/ML IJ SOLN 2022 BRI Thompson STEPAN [facility]UC[facility]-BC pt tolerated Last Documented On 3 6:30PM By Liza OQUENDOA ; [facility] DEPO-Medrol 80 MG/ML IJ SUSP 05/29/2021 BRI Thompson [facility] Last Documented On 2 6:26PM By Samy VO ; [facility] DEPO-Medrol 80 MG/ML IJ SUSP 05/28/2022 BELINDA HUTCHINSON APRN Last Documented On 3 6:16PM By MITRA PARHAM A ; [facility] Cyanocobalamin 1000 MCG/ML IJ SOLN 2021 RHETT Cordova [facility] Last Documented On 2 5:47PM By Samy QOUENDOA ; [facility] Rocephin 1 GM IJ SOLR 03/25/2009 RT GLUT Last Documented On 0 10:46AM By MANSOOR BARROS CMA ; [facility] Results Includes: Results from 03/09/2023 through 03/09/2024 No Results Recorded For Specified Dates History of Present Illness History of Present Illness not supported for this document type No History of Present Illness Recorded Social History Description Last Updated Smoking status : Current everyday smoker CIG 02/13/2023 Last Documented On 3 4:29PM ; [facility] Tobacco non-user 10/06/2022 Last Documented On 3 7:48AM ; [facility] Former smoker 10/02/2022 Last Documented On 3 7:20PM ; [facility] Not a current smoker 05/28/2022 Last Documented On 3 8:26AM ; [facility] No travel 10/11/2020 Last Documented On 1 7:45PM ; [facility] Current nonsmoker 08/28/2020 Last Documented On 1 7:43PM ; [facility] Smoker 06/30/2019 Last Documented On 0 7:05PM ; [facility] Cigarette smoking 1 pack(s)/day 06/25/19 19 Last Documented On 9 12:33PM ; [facility] 06/24/2018 Last Documented On 9 12:33PM ; [facility] Not using drugs 06/24/2018 Last Documented On 9 12:33PM ; [facility] Tobacco use 15 YEARS 06/24/2018 Last Documented On 9 12:33PM ; [facility] Procedures and Surgical History Surgical History Last Updated History of hysterectomy 1994 06/24/2018 Last Documented On 9 12:33PM ; [facility] Medical History Includes: Medical History in patient's chart Description Last Updated Not taking OTC medications 10/09/2022 Last Documented On 3 7:48AM ; [facility] Taking OTC allergy medication 06/01/2022 Last Documented On 3 8:26AM ; [facility] No Contact with and (Suspected) exposure to COVID-19 05/28/2022 Last Documented On 3 8:26AM ; [facility] No fall 05/28/2022 Last Documented On 3 8:26AM ; [facility] No contact with poison verónica 12/02/2021 Last Documented On 2 6:07PM ; [facility] Taking OTC pain medication / fever. Stephanie myers Motrin 12/02/2021 Last Documented On 2 6:07PM ; [facility] No exposure to a contagious disease 09/16 Last Documented On 2 10:04AM ; [facility] No exposure to chemical liquids 07/29/19 Last Documented On 2 5:10PM ; [facility] No secondhand tobacco smoke in home 07/16 Last Documented On 2 5:10PM ; [facility] Not using a new laundry product 07/29/19 Last Documented On 2 5:10PM ; [facility] Not using a new skin care product 2021 Last Documented On 2 5:10PM ; [facility] Pt does not get blood pressure checked a t other facility 07/28/2021 Last Documented On 2 5:10PM ; [facility] Date COVID symptoms started: 04 29 202105/03/2021 Last Documented On 2 5:10PM ; [facility] Surgery BLADDER TUMOR 1985 06/24/2018 Last Documented On 9 12:33PM ; [facility] Family History Includes: Family History in patient's chart Description Last Updated Family history of cancer 06/24/2018 Last Documented On 9 12:33PM ; [facility] Review of Systems Review of Systems not supported for this document type No Review of Systems Recorded Mental Status No Mental Status Recorded Functional Status No Functional Status Recorded Physical Exam Physical Exam not supported for this document type No Physical Exam Recorded Allergies Includes: Active, inactive, and resolved Allergies Substance Type Reaction Onset Date Resolved Date Statu s Sulfa Antibiotics Allergy 04/24/2008 A ctive Last Documented On 3 4:13PM ; [facility] Rocephin Allergy causes high BP 04/06/2017 Acti ve Last Documented On 3 4:13PM ; [facility] Novocain Allergy 04/24/2008 Active Last Documented On 3 4:13PM ; [facility] Levaquin Allergy 04/24/2008 Active Last Documented On 3 4:13PM ; [facility] Cephalosporins Allergy 04/24/2008 Acti ve Last Documented On 3 4:13PM ; [facility] Aspirin Allergy 04/24/2008 Active Last Documented On 3 4:13PM ; [facility] Insurance Includes: Active Insurance Policies Plan Name Member ID Group # Subscriber Relationship Effect kemi Dates 1 - [facility] [id number] EPIFANIO Quintero Clinical Notes Includes: Signed Clinical Notes starting from 03/06/2022 No Clinical Notes Recorded
--- OUTSIDE RECORDS SUMMARY | 2024-03-09 10:19 | XMS_ITS | Clinical Summary ---
Author Organization [facility] Address [address] [place] [address] Phone Care Team Providers Care Dance Studio Manager Name Role Phone DR MK Primary Care Provider ELIANA Jarrett DO Unavailable [phone] Reason for Visit and Chief Complaint The Chief Complaint is: tooth pain, need abx. 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 Active Last Documented On 2 11:55AM ; [facility] Plan of Treatment - Return to the clinic if condition worsens or new symptoms arise - Last Documented On 02/13/2023 4:29PM ; [facility] - Go to the emergency room if condition worsens - Last Documented On 02/13/2023 4:29PM ; [facility] - Analgesics (non-steroidal anti-inflammatory agents) - Last Documented On 02/13/2023 4:29PM ; [facility] - Moist heat - Last Documented On 02/13/2023 4:29PM ; [facility] - Follow-up visit in 2-3 weeks with an office visit with dentist - Last Documented On 02/13/2023 4:29PM ; [facility] Instructions to patient Go to the emergency room if condition worsens Last Documented On 3 4:27PM ; [facility] Go to the emergency room if condition worsens Last Documented On 3 4:27PM ; [facility] Watch for signs/symptoms of infection Last Documented On 3 4:27PM ; [facility] Watch for signs/symptoms of infection, return to the clinic if seen Last Documented On 3 4:27PM ; [facility] Education and Decision Aids were provided during visit for: Patient education about anti biotics: need to finish even if feeling better Last Documented On 3 4:27PM ; [facility] Assessments Includes: Assessments from this encounter Findings - Cellulitis and abscess of mouth - Last Documented On 02/13/2023 4:29PM ; [facility] Instructions Includes: Instructions from this encounter Instructions to patient Go to the emergency room if condition worsens Last Documented On 3 4:27PM ; [facility] Go to the emergency room if condition worsens Last Documented On 3 4:27PM ; [facility] Watch for signs/symptoms of infection Last Documented On 3 4:27PM ; [facility] Watch for signs/symptoms of infection, return to the clinic if seen Last Documented On 3 4:27PM ; [facility] Education and Decision Aids were provided during visit for: Patient education about anti biotics: need to finish even if feeling better Last Documented On 3 4:27PM ; [facility] Medical Equipment - Implanted Devices Includes: Current Devices No Medical Equipment Recorded Medications Includes: Medications discussed during this encounter and other current Medications Discontinued / Stopped on this date BRI HYATTP-BC on 12/15/2022 Amoxicillin-Pot Clavulanate 600-42.9 MG/5ML Oral Suspension Reconstituted Provider: JOSE LUIS THOMPSON Diagnosis: Acute cough Last Documented On 3 4:13PM By Asiya VO ; [facility] predniSONE 20 MG Oral Tablet Provider: BRI HYATTP-DIEGO Diagnosis: Cough, unspecifi ed Last Documented On 3 4:13PM By Asiya VO ; [facility] New / Renewed during this visit BRI YING PUBLIC RELATIONS SENIOR ASSOCIATE-BC on 02/13/2023 Amoxicillin-Pot Clavulanate 600-42.9 MG/5ML Oral Suspension Reconstituted Provider: BRI THOMPSON 10 day supply: 140 mL, 0 refills Diagnosis: Cellulitis and abscess of mouth take 7 ml twice daily for 10days Pharmacy: [address], [phone] - Last Documented On 3 4:36PM By [facility] ; [facility] Current Medications (continue as prescribed) predniSONE 20 MG Oral Tablet 12/15/2022 Provider: BRI THOMPSON Diagnosis: Chronic obstruct kemi pulmonary disease, unspecified One tablet twice a day Last Documented On 3 7:27PM By BRI HYATTDIEGO ; [facility] Ipratropium-Albuterol 0.5-2. 5 (3) MG/3ML Inhalation Solution 11/20/2022 Provider: BRI THOMPSON Diagnosis: Chronic obstruct kemi pulmonary disease, unspecified one vial via nebulization ev lacey 6 hours as needed dispense one box Last Documented On 3 7:08PM By [facility] ; [facility] Doxycycline Hyclate 100 MG O ral Capsule 11/20/2022 Provider: BRI GOFF Diagnosis: Cough, unspecifi ed 1 CAPSULE TWO TIMES A DAY Last Documented On 3 7:08PM By BRI YING [facility] ; [facility] Trelegy Ellipta 200-62.5-25 MCG/ACT Inhalation Aerosol Powder Breath Activated 06/23/2022 Provider: Diagnosis: Last Documented On 07/02/2022 5:43PM By Gretchen Dial MA ; [facility] busPIRone HCl 5 MG Oral Tablet 06/10/2022 Provider: Diagnosis: Last Documented On 07/02/2022 5:43PM By Gretchen Dial MA ; [facility] Indomethacin 50 MG Oral Capsule 05/28/2022 Provider: Diagnosis: Last Documented On 07/02/2022 5:43PM By Gretchen Dial MA ; [facility] Nortriptyline HCl 10 MG Oral Capsule 05/28/2022 Prov ider: Diagnosis: Last Documented On 07/02/2022 5:43PM By Gretchen Dial MA ; [facility] Albuterol Sulfate (2.5 MG/3ML) 0.083% Inhalation Nebulization solution 01/06/2022 Provider: RHETT ORTIZ Diagnosis: Chr obstructive pulmon disease with (acute) lower resp infct 3 ml inahled q6 hours prn for wheezing Last Documented On 2 5:51PM By Rhett ORTIZ ; [facility] Crestor 5MG Oral Tablet 09/08/2018 Provider: Diagnosis: Wednesday and Wednesday Last Documented On 09/08/2018 7:12PM By LINDA VO ; [facility] Cyanocobalamin 1000MCG/ML Injection Solution 8 Provider: Diagnosis: inj twice monthyl Last Documented On 8 6:39PM By LUCIE STRATTON- ; [facility] Past Medications on file Benzonatate 200 MG Oral Capsule 10/06/2022 - Provider: BELINDA LIMON APRN Diagnosis: Take one capsule three times daily as needed for cough Last Documented On 10/06/2022 6:00PM By Belinda Limon APRN ; [facility] Ventolin HFA 108 (90 Base) MCG/ACT Inhalation Aerosol Solution 10/06/2022 - 11/05/2022 Provider: BELINDA LEBLANCN Diagnosis: inhale 2 puffs every 4-6 sami rs as needed for shortness of breath, cough, or wheezing Last Documented On 10/06/2022 6:00PM By Belinda Limon APRN ; [facility] Amoxicillin-Pot Clavulanate 875-125 MG Oral Tablet 07/08/2022 - 07/18/2022 Provider: BELINDA Goetz APRN Diagnosis: One tablet twice a day Last Documented On 07/08/2022 7:19PM By Belinda Limon APRN ; [facility] ProAir HFA 108 (90 Base) MCG/ACT Inhalation Aerosol Solution 10/10/2021 - 11/09/2021 Provider: DAKOTA E DAINA PUBLIC RELATIONS SENIOR ASSOCIATE-C Diagnosis: Cough, unspecifi ed as directed 1-2 puffs q4-6 hours prn Last Documented On 2 1:13PM By BRI LONGO ; [facility] Medications Administered Includes: Administered Medications from this encounter No Administered Medications Recorded Vital Signs Includes: Vital Signs from this encounter Vital Name 02/13/2023 04:12P Pulse Rate-Sitting (bpm) 100 Temp-Oral (F) 98 Height (in) 62 Weight (lb) 159.2 Body Mass Index 29.1 Body Surface Area 1.7 Oxygen Saturation (%) 95 Last Documented: On 02/13/2023 4:13PM ; [facility] Results Includes: Results discussed during this encounter No Results Recorded For Specified Dates History of Present Illness Includes: History of Present Illness from this encounter PRASANTH CAGLE is a 62 year old female. - Mouth sores pt to clinic for tooth pain on the right top and bottom she has a broken tooth. - No dyspnea - No cough - No nausea - No vomiting - No abdominal pain - No diarrhea - No increase in urinary frequency Social History Description Last Updated Smoking status : Current everyday smoker CIG 02/13/2023 Last Documented On 3 4:29PM ; [facility] Tobacco non-user 10/06/2022 Last Documented On 3 4:12PM ; [facility] Former smoker 10/02/2022 Last Documented On 3 4:12PM ; [facility] Current nonsmoker 08/28/2020 Last Documented On 3 4:12PM ; [facility] Smoker 06/30/2019 Last Documented On 3 4:12PM ; [facility] Cigarette smoking 1 pack(s)/day 06/25/19 19 Last Documented On 3 4:12PM ; [facility] 06/24/2018 Last Documented On 3 4:12PM ; [facility] Tobacco use 15 YEARS 06/24/2018 Last Documented On 3 4:12PM ; [facility] Procedures and Surgical History Includes: Procedures from this encounter Procedures Code Diagnosis Performing Provider Service L ocation Service Date the options include close observation Last Documented On 3 4:27PM ; [facility] watch for signs/symptoms of infection Last Documented On 3 4:27PM ; [facility] watch for signs/symptoms of infection, r eturn to the clinic if seen Last Documented On 3 4:27PM ; [facility] Pt to use OTC fever/pain product as need ed per product instruction.~ Last Documented On 3 4:27PM ; [facility] use of tobacco assessment performed 1000F Last Documented On 3 4:13PM ; [facility] review of medications documented 1160F Last Documented On 3 4:13PM ; [facility] Increase fluids Last Documented On 3 4:27PM ; [facility] Surgical History Last Updated History of hysterectomy 1994 06/24/2018 Last Documented On 3 4:12PM ; [facility] Medical History Includes: Medical History addressed during this encounter Description Last Updated Taking OTC allergy medication 06/01/2022 Last Documented On 3 4:12PM ; [facility] Taking OTC pain medication / fever. Usin g Motrin 12/02/2021 Last Documented On 3 4:12PM ; [facility] Date COVID symptoms started: 04 29 202105/03/2021 Last Documented On 3 4:12PM ; [facility] Surgery BLADDER TUMOR 1985 06/24/2018 Last Documented On 3 4:12PM ; [facility] Family History Includes: Family History addressed during this encounter Description Last Updated Family history of cancer 06/24/2018 Last Documented On 3 4:12PM ; [facility] Review of Systems Includes: Review of Systems from this encounter Systemic: No fever, no chills, and no night sweats. Pulmonary: No dyspnea and no cough. Mental Status Includes: Mental Status from this encounter No Mental Status Recorded Functional Status Includes: Functional Status from this encounter No Functional Status Recorded Physical Exam Includes: Physical Exam from this encounter Allergies Includes: Active Allergies Substance Type Reaction Onset Date Resolved Date Statu s Sulfa Antibiotics Allergy 04/24/2008 A ctive Last Documented On 3 4:13PM ; [facility] Rocephin Allergy causes high BP 04/06/2017 Acti ve Last Documented On 3 4:13PM ; [facility] Novocain Allergy 04/24/2008 Active Last Documented On 3 4:13PM ; [facility] Levaquin Allergy 04/24/2008 Active Last Documented On 3 4:13PM ; [facility] Cephalosporins Allergy 04/24/2008 Acti ve Last Documented On 3 4:13PM ; [facility] Aspirin Allergy 04/24/2008 Active Last Documented On 3 4:13PM ; [facility] Encounters Encounter Provider Location Date Check-In Time Check-Out Time Diagnosis WALK IN PATIENT - ESTABLISHED PT BRI STRATTONDIEGO [facility] 02/14/20 23 4:08PM 4:23PM Cellulitis and Abscess Mouth Insurance Includes: Active Insurance Policies Plan Name Member ID Group # Subscriber Relationship Effect kemi Dates 1 - [facility] [id number] EPIFANIO CAGLE Self Clinical Notes Includes: Clinical Notes from this encounter * Progress note Date Encounter Last Documented by 02/13/2023 WALK IN PATIENT - ESTABLISHED PT Last documented on 02/13/2023; 4:29 PM, BRI THOMPSON; [facility] Active Problems & Conditions - Chronic Obstructive Pulmonary Disease Chief Complaint The Chief Complaint is: Tooth pain, need abx. pt can not get into oral surgeon until June. History of Present Illness EPIFANIO CAGLE is a 62 year old female. - Mouth sores pt to clinic for tooth pain on the right top and bottom she has a broken tooth. - No dyspnea - No cough - No nausea - No vomiting - No abdominal pain - No diarrhea - No increase in urinary frequency Current Medication - Albuterol Sulfate (2.5 MG/3ML) 0.083% Inhalation Nebulization solution 3 ml inahled q6 hours prn for wheezing, 30 days, 0 refills - busPIRone HCl 5 MG Oral Tablet 90 days, 0 refills - Crestor 5MG Oral Tablet 5 MG as directed Wednesday and Wednesday, 0 days, 0 refills - Cyanocobalamin 1000MCG/ML Injection Solution 1000 MCG/ML as directed inj twice monthyl, 0 days, 0 refills - Doxycycline Hyclate 100 MG Oral Capsule 1 CAPSULE TWO TIMES A DAY, 10 days, 0 refills - Indomethacin 50 MG Oral Capsule 20 days, 0 refills - Ipratropium-Albuterol 0.5-2.5 (3) MG/3ML Inhalation Solution one vial via nebulization every 6 hours as needed dispense one box, 30 days, 0 refills - Nortriptyline HCl 10 MG Oral Capsule 30 days, 0 refills - predniSONE 20 MG Oral Tablet One tablet twice a day, 5 days, 0 refills - Trelegy Ellipta 200-62.5-25 MCG/ACT Inhalation Aerosol Powder Breath Activated 30 days, 0 refills Past Medical/Surgical History Reported: Surgery BLADDER TUMOR 1984. Medications: Taking OTC pain medication / fever. Using Motrin and [id number]-ochllmg allergy medication. Exposure: Date COVID symptoms started: 04 29 2021. Surgical: - Hysterectomy 1993 Social History Tobacco use: Tobacco use 15 YEARS, cigarette smoking 1 pack(s)/day, former smoker, current nonsmoker, smoker, and smoking status: Current everyday smoker CIG. Marital: . Allergies - Aspirin - Cephalosporins - Levaquin - Novocain - Rocephin Reaction: causes high BP (Moderate to Severe) - Sulfa Antibiotics Family History Cancer Review Of Systems Systemic: No fever, no chills, and no night sweats. Pulmonary: No dyspnea and no cough. Physical Findings - Vitals taken 02/13/2023 04:12 pm Pulse Rate-Sitting 100 bpm Temp-Oral 98 F Height 62 in Weight 159 lbs 3.2 oz Body Mass Index 29.1 kg/m2 Body Surface Area 1.7 m2 Oxygen Saturation 95 % General Appearance: - Well-appearing. - Awake. - Well developed. - Well nourished. - Well hydrated. - In no acute distress. Eyes: General/bilateral: Extraocular Movements: - Normal. Pupils: - PERRLA. Ears: Right Ear: External Auditory Canal: - Normal. Tympanic Membrane: - Normal. Left Ear: External Auditory Canal: - Normal. Tympanic Membrane: - Normal. Nose: General/bilateral: Discharge: - Nasal discharge. - Rhinorrhea. Oral Cavity: Gums: - Examination showed no abnormalities. Teeth: - Dental abnormalities 2nd and 3rd molar on bottom/top right side broken and cracked surrounding gums are pink. Pharynx: Oropharynx: - Tonsils showed no abnormalities. - Not inflamed. Lungs: - Clear to auscultation. Cardiovascular: Heart Rate And Rhythm: - Normal. Edema: - Not present. Abdomen: Palpation: - No abdominal guarding. - No direct epigastric tenderness. - No rebound tenderness in the abdomen. - No mass was palpated in the abdomen. Assessment - Cellulitis and abscess of mouth Therapy - The options include close observation. - Increase fluids. - Watch for signs/symptoms of infection return to the clinic if seen. Pt to use OTC fever/pain product as needed per product instruction. . Counseling/Education - Go to the emergency room if condition worsens - Patient education about antibiotics: need to finish even if feeling better Discussed Finish full prescription of antibiotics. Drink 8-8oz glasses of water a day. Tylenol or Motrin for pain/fever. If diarrhea develops please eat yogurt daily and BRAT diet Salt water gargles Oragel Plan StartCited - Cellulitis and abscess of mouth Amoxicillin-Pot Clavulanate 600-42.9 MG/5ML mL take 7 ml twice daily for 10days, 10 days, 0 refills EndCited - Return to the clinic if condition worsens or new symptoms arise - Go to the emergency room if condition worsens - Analgesics (non-steroidal anti-inflammatory agents) - Moist heat - Follow-up visit in 2-3 weeks with an office visit with dentist Practice Management Use of tobacco assessment performed Review of medications documented. Health Reminders - Assess BMI satisfied 02/13/2023. - Assess Need for CT Lung Screen satisfied 02/13/2023. - Assess Tobacco Use satisfied 02/13/2023.
--- OUTSIDE RECORDS SUMMARY | 2024-03-09 10:19 | XMS_ITS ---
Care Plan - [facility] Created on: March 09, 2024 EPIFANIO CAGLE : 1960 Sex: Female Author Organization [facility] Address [address] [place] [address] Phone Care Team Providers Care Hot Repairman Name Role Phone DR KM Primary Care Provider ELIANA Jarrett DO [phone]
--- OUTSIDE RECORDS SUMMARY | 2024-03-09 10:20 | XMS_ITS | Data Portability ---
Author Organization [facility] [employer], Main Office Address [address] [place] [id number] Care Team Providers Care Recruitment Manager Name Role Phone ABISAI BARBOUR Primary Care Provider [phone] ABISAI BARBOUR Referring Provider [phone] Assessment No assessment recorded. Plan of Treatment Reminders Order Date Submit Date Provider Last Modified By Organization Details Last Modified Time Details Appointments None recorded. Lab phosphorus, serum or plasma 2022 023 [facility], [address] [place], [address], 3 16:46:19 vitamin D, 25-hydroxy, total, serum 2022 023 [facility], [facility] [place], [address], 3 16:46:24 CMP, serum or plasma 2022 023 [facility], [facility] [place], [address], 3 16:46:20 PTH (parathyroi d hormone), intact + calcium, serum or plasma 2022 023 [facility], [facility] [place], [address], 3 16:46:18 calcium/cre atinine, ratio, 24h urine 2022 023 [facility], [address] [place], [address], 3 18:24:41 vitamin B12 + folate, serum or blood [address] [facility] [address] [place], [address], 3 16:46:23 TSH + free T4, serum 2022 [address] [facility] [address] [place], [address], 3 16:46:25 T3, free, serum or plasma 2022 [address] [place], [address], 3 16:46:23 thyroid peroxidase (tpo) Ab, serum 2022 [address] [address] [place], [address], 3 16:46:22 iron + total iron-bindin g capacity (TIBC), serum 2022 [address] [facility] [address] [place], [address], 3 16:46:20 COLTON (antinuclea r antibodies) screen, ifa, serum 2022 [address] [address] [place], [address], 3 16:46:21 Referral None recorded. Procedures fine needle aspiration, ultrasound guided, thyroid (PROC) - please stain for parathyroid adenoma vs cancerous thyroid tissue; she has osteoporosi s and questionabl e parathyroid adenoma thank you 2022 023 CAMILLE Foster [facility] (Radiology), [address] [facility] [place], [address], 3 17:14:06 Surgeries None recorded. Imaging US, thyroid 2022 05 023 [facility] (Radiology), 1 [facility] , [place], [address], 3 16:09:17 Medication Orders None recorded. Patient TargetsNo targets recorded. Patient InstructionsNo instructions recorded. Reason for Referral None Reported. Results Created Date Observation Date Name Description Value Unit Range Abnormal Flag Note LastModifiedBy Organization Detail LastModifiedTime 06/28/1906/30/2022 PTH, INTAC T (ICMA ) AND IONIZ ED CALCI UM parathyroid hormone, intact 52 pg/mL 16-77 normal Inter preti ve Guide Intac t PTH Calci um ----- ----- ----- --- ----- ----- ----- -- Constanza l Parat hyroi d Constanza l Constanza l Hypop amie yroid ism Low or Low Constanza l Low Hyper parat hyroi dism Prima ry Constanza l or High High Secon weston High Constanza l or Low Terti bryan High High Non-P amie yroid Hyper calce fabi Low or Low Constanza l High Not Available [employer] [address] [address] [place], [address], 06/30/2022 16:46:18 06/28/19 23 06/30/2022 PTH, INTAC T (ICMA ) AND IONIZ ED CALCI UM calcium 9.8 mg/dL 8.6-10 .4 normal Not Available [facility] [address] [address] [place], [address], 06/30/2022 16:46:18 06/28/19 23 06/30/2022 PTH, INTAC T (ICMA ) AND IONIZ ED CALCI UM calcium, ionized 5.0 mg/dL 4.7-5. 5 normal Not Available [facility] [address] [place], [address], 06/30/2022 16:46:18 06/28/19 23 06/30/2022 PHOSP HATE ( PHOSP HORUS ) phosphate ( phosphorus) 3.8 mg/dL 2.5-4. 5 normal Not Available [address], [address], 06/30/2022 16:46:19 06/28/19 23 06/30/2022 IRON AND TOTAL IRON JENNIFER NG CAPAC ITY iron, total 137 mcg/d L 45-160 normal Not Available [address], [address], 06/30/2022 16:46:20 06/28/19 23 06/30/2022 IRON AND TOTAL IRON JENNIFER NG CAPAC ITY iron binding capacity 341 mcg/d L_(ca lc) 250-45 0 normal Not Available [address], [address], 06/30/2022 16:46:20 06/28/19 23 06/30/2022 IRON AND TOTAL IRON JENNIFER NG CAPAC ITY % saturation 40 %_(ca lc) 16-45 normal Not Available [address], [address], 06/30/2022 16:46:20 06/28/19 23 06/30/2022 COMPR EHENS RAMOS METAB OLIC PANEL glucose 77 mg/dL 65-99 normal Fasti ng refer ence inter víctor Not Available [address], [address], 06/30/2022 16:46:20 06/28/19 23 06/30/2022 COMPR EHENS RAMOS METAB OLIC PANEL urea nitrogen (BUN) 13 mg/dL 7-25 normal Not Available [address], [address], 06/30/2022 16:46:20 06/28/19 23 06/30/2022 COMPR EHENS RAMOS METAB OLIC PANEL creatinine 0.85 mg/dL 0.50-1 .05 normal Not Available [address], [address], 06/30/2022 16:46:20 06/28/19 23 06/30/2022 COMPR EHENS RAMOS METAB OLIC PANEL eGFR 77 mL/mi n/1.7 3m2 > or = 60 normal The eGFR is based on the CKD-E PI 2020 equat ion. To calcu late the new eGFR from a previ ous Creat inine or Cysta tin C resul t, go to https ://ww w.barbara bergy.o marilee/pr ofess ional s/ kdoqi /gfr% 5Fcal culat or Not Available [address], [address], 06/30/2022 16:46:20 06/28/19 23 06/30/2022 COMPR EHENS RAMOS METAB OLIC PANEL BUN/creatini ne ratio NOT APPLIC ABLE (calc ) 6-22 Not Available [address], [address], 06/30/2022 16:46:20 06/28/19 23 06/30/2022 COMPR EHENS RAMOS METAB OLIC PANEL sodium 142 mmol/ L 135-14 6 normal Not Available [address], [address], 06/30/2022 16:46:20 06/28/19 23 06/30/2022 COMPR EHENS RAMOS METAB OLIC PANEL potassium 4.0 mmol/ L 3.5-5. 3 normal Not Available [address], [address], 06/30/2022 16:46:20 06/28/19 23 06/30/2022 COMPR EHENS RAMOS METAB OLIC PANEL chloride 105 mmol/ L 98-110 normal Not Available [address], [address], 06/30/2022 16:46:20 06/28/19 23 06/30/2022 COMPR EHENS RAMOS METAB OLIC PANEL carbon dioxide 26 mmol/ L 20-32 normal Not Available [address], [address], 06/30/2022 16:46:20 06/28/19 23 06/30/2022 COMPR EHENS RAMOS METAB OLIC PANEL calcium 9.8 mg/dL 8.6-10 .4 normal Not Available [address], [address], 06/30/2022 16:46:20 06/28/19 23 06/30/2022 COMPR EHENS RAMOS METAB OLIC PANEL protein, total 6.7 g/dL 6.1-8. 1 normal Not Available [address], [address], 06/30/2022 16:46:20 06/28/19 23 06/30/2022 COMPR EHENS RAMOS METAB OLIC PANEL albumin 4.5 g/dL 3.6-5. 1 normal Not Available [address], [address], 06/30/2022 16:46:20 06/28/19 23 06/30/2022 COMPR EHENS RAMOS METAB OLIC PANEL globulin 2.2 g/dL_ (calc ) 1.9-3. 7 normal Not Available [address], [address], 06/30/2022 16:46:20 06/28/19 23 06/30/2022 COMPR EHENS RAMOS METAB OLIC PANEL albumin/glob ulin ratio 2.0 (calc ) 1.0-2. 5 normal Not Available [address], [address], 06/30/2022 16:46:20 06/28/19 23 06/30/2022 COMPR EHENS RAMOS METAB OLIC PANEL bilirubin, total 0.9 mg/dL 0.2-1. 2 normal Not Available [address] [address] [place], [address], 06/30/2022 16:46:20 06/28/19 23 06/30/2022 COMPR EHENS RAMOS METAB OLIC PANEL alkaline phosphatase 71 U/L 37-153 normal Not Available [address] [address] [place], [address], 06/30/2022 16:46:20 06/28/19 23 06/30/2022 COMPR EHENS RAMOS METAB OLIC PANEL AST 16 U/L 10-35 normal Not Available [address], [address], 06/30/2022 16:46:20 06/28/19 23 06/30/2022 COMPR EHENS RAMOS METAB OLIC PANEL ALT 18 U/L 6-29 normal Not Available [address] [address] [place], [address], 06/30/2022 16:46:20 06/28/19 23 06/30/2022 COLTON SCR, IFA, W/REF L TITER /ROMAN PARAG/R HEUMA TOID ARTHR ITIS PANEL 1 COLTON screen, ifa NEGATI VE negati ve normal COLTON IFA is a first line scree n for detec ting the prese nce of up to appro ximat rosanna 150 autoa ntibo dies in vario us autoi mmune disea ses. A negat ramos COLTON IFA resul t sugge sts an COLTON-a ssoci ated autoi mmune disea se is not prese nt at this time, but is not defin itive . If there is high clini devyn suspi cion for Sjogr en's syndr ome, testi ng for anti- SS-A/ Ro antib nae shoul d be consi dered . Anti- Alisa-1 antib nae shoul d be consi dered for clini nabor suspe cted infla mmato ry myopa hardy . AC-0: Negat ramos Inter natio nal Conse nsus on COLTON Patte rns (http s://d oi.or g/10. 1515/ [facility]- 2017- 0052) For addit ional infor leslie pham refer to http: //abby [place] stDia gnost ics.c om/fa q/FAQ 177 (This link is being provi ded for infor hany zuniga/ educa akhil l purpo ses only. ) Not Available [address] [place], [address], 06/30/2022 16:46:21 06/28/19 23 06/30/2022 COLTON SCR, IFA, W/REF L TITER /ROMAN PARAG/R HEUMA TOID ARTHR ITIS PANEL 1 rheumatoid factor <14 IU/mL <14 normal Not Available [facility] [address] [address] [place], [address], 06/30/2022 16:46:21 06/28/19 23 06/30/2022 COLTON SCR, IFA, W/REF L TITER /ROMAN PARAG/R HEUMA TOID ARTHR ITIS PANEL 1 cyclic citrullinate d peptide (ccp) Ab (IgG) <16 units normal Refer ence Range Negat ramos: <20 Weak Posit ramos: 20-39 Moder ate Posit ramos: 40-59 Stron g Posit ramos: >59 Not Available [facility] [address] [place], [address], 06/30/2022 16:46:21 06/28/19 23 06/30/2022 COLTON SCR, IFA, W/REF L TITER /ROMAN PARAG/R HEUMA TOID ARTHR ITIS PANEL 1 interpretati on There is no serol ogic evide nce for rheum atoid arthr itis. The RF and CCP tests each have a sensi tivit y for estab lishe d rheum atoid arthr itis of appro ximat rosnana 65-70 %. Not Available [facility] [address] [address] [place], [address], 06/30/2022 16:46:21 06/28/19 23 06/30/2022 THYRO ID PEROX IDASE ANTIB ODIES thyroid peroxidase antibodies <1 IU/mL <9 Not Available [address], [address], 06/30/2022 16:46:22 06/28/19 23 06/30/2022 VITAM IN B12/F OLATE , SERUM PANEL vitamin B12 507 pg/mL 200-11 00 normal Not Available [address], [address], 06/30/2022 16:46:22 06/28/19 23 06/30/2022 VITAM IN B12/F OLATE , SERUM PANEL folate, serum 6.0 NG/mL normal Refer ence Range Low: <3.4 Borde rline : 3.4-5 .4 Constanza l: >5.4 Not Available [address], [address], 06/30/2022 16:46:22 06/28/19 23 06/30/2022 T3, FREE T3, free 2.9 pg/mL 2.3-4. 2 normal Not Available [address], [address], 06/30/2022 16:46:23 06/28/19 23 06/30/2022 VITAM IN D,25- OH,TO JESSICA,I A vitamin D,25-oh,tota l,ia 44 NG/mL 30-100 normal Vitam in D Statu s 25-OH Vitam in D: Defic iency : <20 ng/mL Insuf ficie ncy: 20 - 29 ng/mL Optim al: > or = 30 ng/mL For 25-OH Vitam in D testi ng on patie nts on D2-garcia pplem entat ion and patie nts for whom quant itati on of D2 and D3 fract ions is requi red, the [employer] Assur eD(TM ) 25-OH VIT D, (D2,D 3), LC/MS /MS is recom ben d: order code 84837 (deneen ents >2yrs ). See Note 1 Note 1 For addit ional infor leslie pham refer to http: //abby walton ics.c om/fa q/FAQ 199 (This link is being provi ded for infor hany zuniga/ milena sykes purpo ses only. ) Not Available [address], [address], 06/30/2022 16:46:24 06/28/19 23 06/30/2022 TSH+F REE T4 TSH 1.55 mIU/L 0.40-4 .50 normal Not Available [address], [address], 06/30/2022 16:46:25 06/28/19 23 06/30/2022 TSH+F REE T4 T4, free 1.2 NG/dL 0.8-1. 8 normal Not Available [address], [address], 06/30/2022 16:46:25 07/04/19 23 07/04/2022 CALCI UM, 24 HOUR URINE (W/ CREAT ININE ) calcium/crea tinine ratio 76 mg/g_ creat 30-275 normal Not Available [address], [address], 07/04/2022 18:24:40 07/04/19 23 07/04/2022 CALCI UM, 24 HOUR URINE (W/ CREAT ININE ) calcium, 24 hour urine 84 mg/24 _h normal Refer ence Range 35-25 0 Low calci um diet 35-20 0 Not Available [address], [address], 07/04/2022 18:24:40 07/04/19 23 07/04/2022 CALCI UM, 24 HOUR URINE (W/ CREAT ININE ) creatinine, 24 hour urine 1.11 g/24_ h 0.50-2 .15 normal Not Available [facility] [address], [place], [address], 07/04/2022 18:24:40 08/03/19 23 07/30/2022 US, thyro id No observ ation record ed. [facility] [address], [place], [address], 08/13/2022 21:41:36 09/25/1909/24/2022 fine needl e aspir ation , ultra sound guide d, thyro id (PROC ) No observ ation record ed. [facility] [address], [place], [address], 09/25/2022 20:22:57 Result Notes None recorded. Problems Name Problem SNOMED Code Status Onset Date Resolution Date Notes Provider Name and Address Organization Details Recorded Time Hyperparathyro idism 62965978 Active 2022 MD John Sarabia, [address], [place], [address], [employer] [facility] [employer] 3 16:58:14 Fatigue 54987067 Active 2022 MD John Sarabia, [address], [place], [address], [employer] 3 16:58:43 Thyroid nodule 051219022 Active 2022 MD John Sarabia [address], [place], [address], [employer] 3 17:02:51 Secondary hyperparathyro idism 96923231 Active 2022 MD John Sarabia [address], [place], [address], [employer] [facility] [employer] 3 16:14:27 Multinodular goiter 926174737 Active 2022 MD John Sarabia [address], [place], [address], [facility] 3 16:14:31 Problem Notes None recorded. Procedures Surgical History None recorded. Imaging Results Imaging Date Name Status LastModified by Organiz ation Details LastModified Time 07/30/2022 US, thyroid completed [facility] [address], [place], [address], 08/13/2022 21:41:36 09/24/2022 fine needle aspiration, ultrasound guided, thyroid (PROC) completed [facility] [address], [place], [address], 09/25/2022 20:22:57 Procedure Notes None recorded. Medical Equipment None Reported. Allergies Allergen ID Allergen Name Allergen Category Reaction Reaction Severity Criticality Documentation Date Start Date Code Code System Note Provider Name and Address Organization Details Recorded Time 35614 Rocephin medicatio n Not available Not available Not available 06/23/2022 9449 RxNorm Kamryn Louvier, RMA null, [facility] 3 16:42:15 05709 aspirin medicatio n Not available Not available Not available 06/23/2022 1191 RxNorm Kamryn Louvier, RMA null, [facility] 16:42:26 [address]346 lidocaine medicatio n Not available Not available Not available 06/23/2022 6387 RxNorm Kamryn Louvsuma, RMA null, [facility] 3 16:42:38 [address] morphine medicatio n Not available Not available Not available 08/27/2022 7052 RxNorm Wendie Melba, RMA null, [facility] 15:56:13 Medications Name Sig Start Date Stop Date Status Note LastModified by Organization Details LastModified Time buspirone 5 mg tablet active Not Available Not Available No t Available venlafaxine ER 37.5 mg capsule,ext ended release 24 hr 06/23 completed Not Available Not Available Not Available prednisone 10 mg tablet TAKE 4 TABLETS BY MOUTH DAILY FOR 5 DAYS 06/23 completed Not Available Not Available Not Available doxycycline hyclate 100 mg capsule TAKE 1 CAPSULE BY MOUTH TWICE DAILY 06/23 completed Not Available Not Available Not Available ipratropium 0.5 mg-albutero l 3 mg (2.5 mg base)/3 mL nebulizatio n soln active Not Available Not Available Not Available albuterol sulfate 2.5 mg/3 mL (0.083 %) solution for nebulizatio n INHALE 1 VIAL VIA NEBULIZER EVERY 6 HOURS NEEDED FOR WHEEZING active Not Available Not Available No t Available azithromyci n 250 mg tablet TAKE 2 TABLETS BY MOUTH FOR 1 DAY DIRECTED THEN TAKE 1 TABLET BY MOUTH EVERY DAY FOR 4 DAYS 08/27 completed Not Available Not Available Not Available tizanidine 4 mg tablet active Not Available Not Available Not Available amoxicillin 600 mg-potassiu m clavulanate 42.9 mg/5 mL oral suspension SHAKE LIQUID AND TAKE 7 ML BY MOUTH TWICE DAILY FOR 10 DAYS. DISCARD REMAINDER 08/27 completed Not Available Not Available Not Available amoxicillin 250 mg-potassiu m clavulanate 62.5 mg/5 mL oral suspension TAKE 10 ML BY MOUTH EVERY 12 HOURS FOR 7 DAYS. DISCARD REMAINDER 06/23 completed Not Available Not Available Not Available prednisone 20 mg tablet TAKE 2 TABLETS BY MOUTH EVERY DAY FOR 5 DOSES DIRECTED 08/27 completed Not Available Not Available Not Available alendronate 70 mg tablet active Not Available Not Available Not Available amoxicillin 400 mg-potassiu m clavulanate 57 mg/5 mL oral suspension TAKE 5 ML BY MOUTH TWICE DAILY FOR 10 DAYS 06/23 completed Not Available Not Available Not Available alprazolam 0.25 mg tablet 06/23 completed Not Available Not Available Not Available benzonatate 100 mg capsule 06/23 completed Not Available Not Available Not Available doxycycline monohydrate 100 mg capsule 06/23 completed Not Available Not Available Not Available pantoprazol e 40 mg tablet,heydi yed release active Not Available Not Available Not Available hyoscyamine sulfate 0.125 mg tablet active Not Available Not Available Not Available nortriptyli ne 10 mg capsule TAKE 1 TO 2 CAPSULES BY MOUTH EVERY NIGHT FOR MIGRAINE PREVENTIO N active Not Available Not Available No t Available cyanocobala min (vit B-12) 1,000 mcg/mL injection solution active Not Available Not Available Not Available indomethaci n 50 mg capsule active Not Available Not Available Not Available montelukast 10 mg tablet active Not Available Not Available Not Available ergocalcife rol (vitamin D2) 1,250 mcg (50,000 unit) capsule TAKE 1 CAPSULE BY MOUTH EVERY 7 DAYS FOR 12 DOSES 06/23 completed Not Available Not Available Not Available albuterol sulfate HFA 90 mcg/actuati on aerosol inhaler INHALE 2 PUFFS BY MOUTH EVERY 4 HOURS NEEDED FOR WHEEZING active Not Available Not Available No t Available doxycycline hyclate 100 mg tablet 06/23 completed Not Available Not Available Not Available diazepam 5 mg tablet 08/27 completed Not Available Not Available Not Available rosuvastati n 5 mg tablet active Not Available Not Available Not Available Vitamin D3 active Not Available Not Av ailable Not Available InnoSp[employer] Essence device USE DIRECTED active Not Available Not Available No t Available Trelegy Ellipta 200 mcg-62.5 mcg-25 mcg powder for inhalation active Not Available Not Available N ot Available Vitals Date Recorded Body weight Heart rate Body temperature Respiratory rate Systolic blood pressure Diastolic blood pressure Provider Name and Address Organization Details Last Updated DateTime 3 38018.1 g 76 /min 97.1 [degF] 18 /min 105 mm[Hg] 63 mm[Hg] Kamryn Cervantes [facility] [employer] [facility] 16:41:47 Date Recorded Body weight Body temperature Heart rate Systolic blood pressure Diastolic blood pressure Provider Name and Address Organization Details Last Updated DateTime 08/27/2022 43802.8 8 g 97.3 [degF] 94 /min 115 mm[Hg] 66 mm[Hg] [facility] [employer] [facility] 3 15:55:55 Social History None recorded. Functional Status None recorded. Mental Status None recorded. Family History Relationship Description Onset Age of this Age Resolved Age Notes LastModified by Organization Details LastModified Time Maternal Uncle Diabetes mellitus clouvier Not available 2022 16:44:12 Paternal Uncle Heart disease clouvier Not available 2022 16:44:26 Medical History No medical history recorded. Gynecological HistoryNo gynecological history recorded. Obstetrics History GPAL:G 0 P 0 0 0 0 Past Encounters Encounter ID Performer Location Encounter Start Date Encounter Closed Date Diagnosis/Indication Diagnosis SNOMED-CT Code Diagnosis ICD10 Code Diagnosis Note [id number] Shea Luciano MD [facility] [address] [place] [address] 06/23/2022 15:45:10 06/23/2022 17:11:40 Hyperparathyroidism 08803427 E21.3 I need an up to date labwork as I was only provided PTH which was elevated but I did not have an adjoining calcium or renal panel. Per patient she generally runs 10.5 mg/dL - not taking hctz or any supplement s/calcium Patient is not taking any additional sources of calcium such as tums or rolaids or calcium containing antacids and was encouraged to abstain from these supplement s. If urinary calcium is markedly elevated with calcium to creatinine clearance of >0.01 then very consistent with primary hyperparat hyroidism however if calcium to creatinine clearance is <0.01 then more consistent with benign condition known as familial hypercalce fabi hypocalciu elizabeth. Patient is wishing to undergo aggressive measures for management of parathyroi d disease as she is having fatigue, dizziness and hypertensi on; however discussed with patient if her serum calcium is increasing to above 11 to 11.5 mg/dL or higher and she has evidence of severe bone loss especially at cortical bone site (T score of -2.5 or worse) these are indicators she is a surgical candidate and guidelines do recommend parathyroi dectomy in these cases. She is aware to get bone density results to where we can review this. Fatigue 82811204 R53.83 Will send for thyroid antibodies to screen for autoimmune thyroid disease in addition to CBC, CMP, ferritin, COLTON/rheuma toid factor and B12/folate to screen for other potential secondary causes of fatigue. Thyroid nodule 614793339 E04.1 Send for repeat thyroid u/s to screen for any changes of nodule or architectu ral changes of thyroid. Spent up to 45 minutes preparing to see the patient (eg, review of tests), obtaining and/or reviewing separately obtained history, performing a medically appropriat e examinatio n and evaluation , counseling and educating the patient, ordering medication s, tests, along with documentin g clinical informatio n in the electronic health record, herlinda hdez interpreti ng results and communicat ing results to the patient. RTC in 3-4 months. Patient was provided a handwritte n lab order which contains our fax number. If she chooses to go outside of the [facility] system to obtain labwork she was advised to provide our fax number and my informatio n to the lab she will be obtaining labwork from in order to have her labs properly forwarded over for me to review so there is no loss of follow up due to use of outside network. She was also advised to contact our clinic informing us that she has completed her labwork so we are aware we will need to reach out to the appropriat e laboratory to request her results be forwarded to us so I might have the ability to review and make further medical decision making in her case. She voiced understand ing. Thank you for this consultati on. [id number] Shea Luciano MD [facility] [address] [place] [address] 08/27/2022 15:45:54 08/27/2022 16:25:16 Secondary hyperparathyroidism 49701680 E21.1 Upon review of previous labwork patient had fluctuatio n of parathyroi d hormone in relation to low calcium/lo w vitamin D- this is consistent with secondary hyperparat hyroidism. Her most recent levels from June is indicative of resolution of her feedback signaling as her vitamin D is normal/ renal function is normal and her PTH and calcium are respective ly normal. Multinodular goiter 6462 50049 E04.2 Due to finding of her nodules would recommend she undergo u/s guided FNA of her dominant right nodules as this might be parathyroi d adenoma/un likely and most importantl y we need to rule out possibilit y of cancerous thyroid tissue. Patient would [facility] and patient aware to schedule soon as she is aware I placed resignatio n and last day of Nov 27. Spent up to 25 minutes preparing to see the patient (eg, review of tests), obtaining and/or reviewing separately obtained history, performing a medically appropriat e examinatio n and evaluation , counseling and educating the patient, ordering medication s, tests, along with documentin g clinical informatio n in the electronic health record, herlinda hdez interpreti ng results and communicat ing results to the patient. Patient can be followed by PCP - she/he is aware of my resignatio n and last day of November 27. If needed his/her PCP can refer patient to another endocrinol ogist in the area. All questions /concerns answered and refills necessary at visit today. Health Concerns Section Related Observation LastModified by Organization Detai ls LastModified Time None Recorded Concern Status LastModified by Organization Details LastModified Time None Recorded Advance Directives Directive None Recorded Payers Encounter Date Sequence Insurance Name Policy Number Policy Crandall Covered Member ID Crandall Member ID Guarantor Name 06/23/2022 1 [place] [id number] 4 Duyen Thopmson Kwesi [id number] Duyen Orosco 08/27/2022 1 [place]) [id number] 4 Duyen Thompson Kwesi [id number] Duyen Kwesi Notes Date Note Type Note Provider Name and Address Organization Details Recorded Time 3 text/html 61 yo female comes in as referral by courtesy of Yojana Amador NP for evaluation of hyperparathyroidism in setting of fatigue and osteoporosis. ironically CMP not sent so I do not have a calcium or renal function to assess feedback response. PTH 94 pg/ML isolated She has hx of osteoporosis-she was diagnosed recently within last 6 months. She was seeing and endo [facility] [place] but surgery and treatment was not recommended so patient seeking second opinion. She has low blood pressure and a little higher than her normal. She is recently 115/77 mmHg. She does have some dizziness and feeling off balance. She does have some cervical OA and inflammation. She has no issues with kidney stones or broken bones. Shea Luciano MD [address] [facility], [facility] [address], [place], [address], [place] - [place] [employer] 06/23/2022 22:23:18 3 text/html 62 yo female comes in for follow up in management of questionable hyperparathyroidism likely secondary in nature in setting of osteoporosis. at initial visit in June we obtained full panel thyroid u/s from 07/30:multiple nodules 1.5 cm in right lobe6 mm in left lobe we recommended biopsy however patient wished to follow bone density scan from 12/06:T score of -2.6 of LST score of -2.4 of right hipT score of -2.5 of left hip from previous labs her PTH was fluctuating based on low vitamin D and low calcium which based on labs below resolved. She has no falls or fractures and no kidney stones. labs from 07/07:TSH of 1.55 uIU/mlFT4 of 1.2 ng/dL24 hour urine calcium 84 mg/24 hrTSH of 1.55 uIU/mlFT4 of 1.2 ng/dLvit D 44 ng/mLFT3 of 2.9 pg/mLB12/folate normalANA negTPO negglucose 77 mg/dlCr normalLFT normaliron sat 40%PO4 normalPTH 52 ng/mlcalcium 9.8 mg/dL Shea Luciano MD [address] [facility], [facility] [address], [place], [address], [place] [employer] [facility] 08/27/2022 16:22:45 OBGyn Episode No OBEpisode recorded.
--- OUTSIDE RECORDS SUMMARY | 2024-03-09 10:20 | XMS_ITS | Clinical Summary ---
Author Organization [facility] Address [address] [place] [address] Phone Care Team Providers Care Horticulture Supervisor Name Role Phone DR KM Primary Care Provider ELIANA Jarrett DO Unavailable [phone] Reason for Visit and Chief Complaint The Chief Complaint is: PT C/O DRY COUGH, SOB, HEADACHE, SORE THROAT. OXYGEN IS 90 WHEN SHE IS WALKING, The Chief Complaint is: dry cough, sob when walking, sore throat, headache, dizzy, drainage in throat. pt states she is not better since last visit Problems Includes: Problems addressed during this encounter and other active Problems All Visits Onset Date Resolved Date Provider Condition S tatus Chronic Obstructive Pulmonary Disease 05/30/2021 RHETT GLOVER [employer]C Active Last Documented On 11:55AM ; [facility] Plan of Treatment - Return to the clinic if condition worsens or new symptoms arise - Last Documented On 12/15/2022 7:19PM ; [facility] - Follow-up visit in 1-2 weeks with an office visit or sooner if symptoms persist or worsen - Last Documented On 12/15/2022 7:19PM ; [facility] - Patient to call if problem develops - Last Documented On 12/15/2022 7:19PM ; [facility] Instructions to patient Go to the emergency room if condition worsens Last Documented On 7:15PM ; [facility] Watch for signs/symptoms of infection Last Documented On 3 7:15PM ; [facility] Watch for signs/symptoms of infection, return to the clinic if seen Last Documented On 3 7:15PM ; [facility] Intervention and counseling on cessation of tobacco use Last Documented On 3 7:07PM ; [facility] Education and Decision Aids were provided during visit for: Patient education about anti biotics: need to finish even if feeling better Last Documented On 3 7:15PM ; [facility] Assessments Includes: Assessments from this encounter No Assessments Recorded Instructions Includes: Instructions from this encounter Instructions to patient Go to the emergency room if condition worsens Last Documented On 3 7:15PM ; [facility] Watch for signs/symptoms of infection Last Documented On 3 7:15PM ; [facility] Watch for signs/symptoms of infection, return to the clinic if seen Last Documented On 3 7:15PM ; [facility] Intervention and counseling on cessation of tobacco use Last Documented On 3 7:07PM ; [facility] Education and Decision Aids were provided during visit for: Patient education about anti biotics: need to finish even if feeling better Last Documented On 3 7:15PM ; [facility] Medical Equipment - Implanted Devices Includes: Current Devices No Medical Equipment Recorded Medications Includes: Medications discussed during this encounter and other current Medications New / Renewed during this visit BRI THOMPSON on 12/15/2022 predniSONE 20 MG Oral Tablet Provider: BRI THOMPSON 5 day supply: 10 tablet, 0 refills Diagnosis: Chronic obstructive pulmonary disease, unspecified One tablet twice a day Pharmacy: [address], [phone] - Last Documented On 3 7:27PM By BRI THOMPSON ; [facility] Amoxicillin-Pot Clavulanate 600-42.9 MG/5ML Oral Suspension Reconstituted Provider: BRI THOMPSON 10 day supply: 150 mL, 0 refills Diagnosis: Acute cough take 7 ml BID x 10 days Pharmacy: [facility] [address], [phone] - Last Documented On 3 4:13PM By Asiya Rose Lang ; [facility] Current Medications (continue as prescribed) Amoxicillin-Pot Clavulanate 600-42.9 MG/5ML Oral Suspension Reconstituted 02/13/2023 Provider: BRI Thompson [facility] Diagnosis: Cellulitis and a bscess of mouth take 7 ml twice daily for 10days Last Documented On 3 4:36PM By BRI YING [facility] ; [facility] Ipratropium-Albuterol 0.5-2. 5 (3) MG/3ML Inhalation Solution 11/20/2022 Provider: BRI GRESHAM [facility] Diagnosis: Chronic obstruct kemi pulmonary disease, unspecified one vial via nebulization ev lacey 6 hours as needed dispense one box Last Documented On 3 7:08PM By BRI YING [facility] ; [facility] Doxycycline Hyclate 100 MG O ral Capsule 11/20/2022 Provider: BRI YING [facility] Diagnosis: Cough, unspecifi ed 1 CAPSULE TWO TIMES A DAY Last Documented On 3 7:08PM By BRI YING [facility] ; [facility] Trelegy Ellipta 200-62.5-25 MCG/ACT Inhalation Aerosol Powder Breath Activated 06/23/2022 Provider: Diagnosis: Last Documented On 07/02/2022 5:43PM By Gretchen Dial MA ; [facility] busPIRone HCl 5 MG Oral Tablet 06/10/2022 Provider: Diagnosis: Last Documented On 07/02/2022 5:43PM By Gretchen Dial MA ; [facility] Indomethacin 50 MG Oral Capsule 05/28/2022 Provider: Diagnosis: Last Documented On 07/02/2022 5:43PM By Gretchen Dial MA ; [facility] Nortriptyline HCl 10 MG Oral Capsule 05/28/2022 Prov ider: Diagnosis: Last Documented On 07/02/2022 5:43PM By Gretchen Dial MA ; [facility] Albuterol Sulfate (2.5 MG/3ML) 0.083% Inhalation Nebulization solution 01/06/2022 Provider: RHETT ORTIZ Diagnosis: Chr obstructive pulmon disease with (acute) lower resp infct 3 ml inahled q6 hours prn for wheezing Last Documented On 2 5:51PM By Rhett ORTIZ ; [facility] Crestor 5MG Oral Tablet 09/08/2018 Provider: Diagnosis: Wednesday and Wednesday Last Documented On 09/08/2018 7:12PM By LINDA VO ; [facility] Cyanocobalamin 1000MCG/ML Injection Solution 8 Provider: Diagnosis: inj twice monthyl Last Documented On 8 6:39PM By LUCIE SEGUNDO [facility] ; [facility] Past Medications on file Benzonatate 200 MG Oral Capsule 10/06/2022 - 3 Provider: BELINDA HUTCHINSON APRN Diagnosis: Take one capsule three times daily as needed for cough Last Documented On 10/06/2022 6:00PM By Belinda Hutchinson APRN ; [facility] Ventolin HFA 108 (90 Base) MCG/ACT Inhalation Aerosol Solution 10/06/2022 - 11/05/2022 Provider: BELINDA Croft PRN Diagnosis: inhale 2 puffs every 4-6 sami rs as needed for shortness of breath, cough, or wheezing Last Documented On 10/06/2022 6:00PM By Belinda Hutchinson APRN ; [facility] Amoxicillin-Pot Clavulanate 875-125 MG Oral Tablet 07/08/2022 - 07/18/2022 Provider: BELINDA Goetz APRN Diagnosis: One tablet twice a day Last Documented On 07/08/2022 7:19PM By Belinda Hutchinson APRN ; [facility] ProAir HFA 108 (90 Base) MCG/ACT Inhalation Aerosol Solution 10/10/2021 - 11/09/2021 Provider: DAKOTA LONGOC Diagnosis: Cough, unspecifi ed as directed 1-2 puffs q4-6 hours prn Last Documented On 2 1:13PM By BRI YING [facility] ; [facility] Medications Administered Includes: Administered Medications from this encounter No Administered Medications Recorded Vital Signs Includes: Vital Signs from this encounter Vital Name 12/15/2022 07:05P Pulse Rate-Sitting (bpm) 87 Temp-Oral (F) 98 Height (in) 62 Weight (lb) 158 Body Mass Index 28.9 Body Surface Area 1.7 Oxygen Saturation (%) 95 Last Documented: On 12/15/2022 7:06PM ; [facility] Results Includes: Results discussed during this encounter No Results Recorded For Specified Dates History of Present Illness Includes: History of Present Illness from this encounter PRASANTH CAGLE is a 62 year old female. - Allergy list reviewed - Medication list reviewed - Headache - Facial pain - Sinus pain - No neck pain - No swollen glands in the neck - No eye symptoms - Ear symptoms - Nasal discharge mucinous - Postnasal drip - Nasal passage blockage (stuffiness) - Sore throat comes and goes - No sneezing - No nasal itching - No chest pain or discomfort - Cough - Wheezing - No dyspnea - No heartburn - No nausea - No vomiting - No abdominal pain - No diarrhea - No vertigo - No skin symptoms Pt to clinic for cough, congestion, wheezing x 1 month she has been doing her inhaler and nebulizer Social History Description Last Updated Tobacco non-user 10/06/2022 Last Documented On 3 7:05PM ; [facility] Former smoker 10/02/2022 Last Documented On 3 7:05PM ; [facility] Current nonsmoker 08/28/2020 Last Documented On 3 7:05PM ; [facility] Smoker 06/30/2019 Last Documented On 3 7:05PM ; [facility] Cigarette smoking 1 pack(s)/day 06/25/19 19 Last Documented On 3 7:05PM ; [facility] 06/24/2018 Last Documented On 3 7:05PM ; [facility] Tobacco use 15 YEARS 06/24/2018 Last Documented On 3 7:05PM ; [facility] Smoking Status Unknown Procedures and Surgical History Includes: Procedures from this encounter Procedures Code Diagnosis Performing Provider Service L ocation Service Date medication instruction Last Documented On 3 7:15PM ; [facility] continue current medication Last Documented On 3 7:15PM ; [facility] the options include decongestants as nee ded per product instructions Last Documented On 3 7:15PM ; [facility] the options include antihistamines as ne eded per product instructions Last Documented On 3 7:15PM ; [facility] watch for signs/symptoms of infection Last Documented On 3 7:15PM ; [facility] watch for signs/symptoms of infection, r eturn to the clinic if seen Last Documented On 3 7:15PM ; [facility] Pt to use prescription as ordered. Purpo se of and use of medication discussed.~ Last Documented On 3 7:15PM ; [facility] Pt to use OTC fever/pain product as need ed per product instruction.~ Last Documented On 3 7:15PM ; [facility] Pt to use OTC cough product as needed pe r product instruction.~ Last Documented On 3 7:15PM ; [facility] Pt to use OTC expectorant product as nee ded per product instruction.~ Last Documented On 3 7:15PM ; [facility] plan of care reviewed and agreed to by t he patient Last Documented On 3 7:15PM ; [facility] 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 Last Documented On 3 7:07PM ; [facility] use of tobacco assessment performed 1000F Last Documented On 3 7:07PM ; [facility] review of medications documented 1160F Last Documented On 3 7:07PM ; [facility] Surgical History Last Updated History of hysterectomy 1994 06/24/2018 Last Documented On 3 7:05PM ; [facility] Medical History Includes: Medical History addressed during this encounter Description Last Updated Taking OTC allergy medication 06/01/2022 Last Documented On 3 7:05PM ; [facility] Taking OTC pain medication / fever. Stephanie myers Motrin 12/02/2021 Last Documented On 3 7:05PM ; [facility] Date COVID symptoms started: 04 29 202105/03/2021 Last Documented On 3 7:05PM ; [facility] Surgery BLADDER TUMOR 1985 06/24/2018 Last Documented On 3 7:05PM ; [facility] Family History Includes: Family History addressed during this encounter Description Last Updated Family history of cancer 06/24/2018 Last Documented On 3 7:05PM ; [facility] Review of Systems Includes: Review of Systems from this encounter Systemic: No fever, no chills, and no night sweats. Head: No headache and no sinus pressure. Otolaryngeal: No earache. Nasal discharge and postnasal drip. Pulmonary: Feeling congested in the chest, cough, and coughing up sputum. Mental Status Includes: Mental Status from this encounter No Mental Status Recorded Functional Status Includes: Functional Status from this encounter No Functional Status Recorded Physical Exam Includes: Physical Exam from this encounter Allergies Includes: Active Allergies Substance Type Reaction Onset Date Resolved Date Statu s Sulfa Antibiotics Allergy 04/24/2008 A ctive Last Documented On 3 4:13PM ; [facility] Rocephin Allergy causes high BP 04/06/2017 Acti ve Last Documented On 3 4:13PM ; [facility] Novocain Allergy 04/24/2008 Active Last Documented On 3 4:13PM ; [facility] Levaquin Allergy 04/24/2008 Active Last Documented On 3 4:13PM ; [facility] Cephalosporins Allergy 04/24/2008 Acti ve Last Documented On 3 4:13PM ; [facility] Aspirin Allergy 04/24/2008 Active Last Documented On 3 4:13PM ; [facility] Encounters Encounter Provider Location Date Check-In Time Check-Out Time Diagnosis COVID SICK VISIT- ESTABLISHED PATIENT BRI Thompson [facility] 12/16/19 23 6:52PM 7:17PM Insurance Includes: Active Insurance Policies Plan Name Member ID Group # Subscriber Relationship Effect kemi Dates 1 - [facility] [id number] EPIFANIO CAGLE Self Clinical Notes Includes: Clinical Notes from this encounter * Progress note Date Encounter Last Documented by 12/15/2022 COVID SICK VISIT- ESTABLISHED SHELTON ROMIE Last documented on 12/15/2022; 7:19 PM, BRI YING [facility]; [facility] Active Problems & Conditions - Chronic Obstructive Pulmonary Disease Chief Complaint The Chief Complaint is: Dry cough, sob when walking, sore throat, headache, dizzy, drainage in throat. pt states she is not better since last visitThe Chief Complaint is: PT C/O DRY COUGH, SOB, HEADACHE, SORE THROAT. OXYGEN IS 90 WHEN SHE IS WALKING. History of Present Illness EPIFANIO CAGLE is a 62 year old female. - Allergy list reviewed - Medication list reviewed - Headache - Facial pain - Sinus pain - No neck pain - No swollen glands in the neck - No eye symptoms - Ear symptoms - Nasal discharge mucinous - Postnasal drip - Nasal passage blockage (stuffiness) - Sore throat comes and goes - No sneezing - No nasal itching - No chest pain or discomfort - Cough - Wheezing - No dyspnea - No heartburn - No nausea - No vomiting - No abdominal pain - No diarrhea - No vertigo - No skin symptoms Pt to clinic for cough, congestion, wheezing x 1 month she has been doing her inhaler and nebulizer Current Medication - Albuterol Sulfate (2.5 MG/3ML) [...] refills - predniSONE 20 MG Oral Tablet take one tablet twice a day for five days, 5 days, 0 refills - Trelegy Ellipta 200-62.5-25 MCG/ACT Inhalation Aerosol Powder Breath Activated 30 days, 0 refills Past Medical/Surgical History Reported: Surgery BLADDER TUMOR 1984. Medications: Taking OTC pain medication / fever. Using Motrin and aviu-wtv-ibtbchw allergy medication. Exposure: Date COVID symptoms started: 04 29 2021. Surgical: - Hysterectomy 1993 Social History Tobacco use: Tobacco use 15 YEARS, cigarette smoking 1 pack(s)/day, former smoker, current nonsmoker, and smoker. Marital: . Allergies - Aspirin - Cephalosporins - Levaquin - Novocain - Rocephin Reaction: causes high BP (Moderate to Severe) - Sulfa Antibiotics Family History Cancer Review Of Systems Systemic: No fever, no chills, and no night sweats. Head: No headache and no sinus pressure. Otolaryngeal: No earache. Nasal discharge and postnasal drip. Pulmonary: Feeling congested in the chest, cough, and coughing up sputum. Physical Findings - Vitals taken 12/15/2022 07:05 pm Pulse Rate-Sitting 87 bpm Temp-Oral 98 F Height 62 in Weight 158 lbs Body Mass Index 28.9 kg/m2 Body Surface Area 1.7 m2 Oxygen Saturation 95 % General Appearance: - Well-appearing. - Well developed. - Well nourished. - In no acute distress. Neck: Suppleness: - Neck demonstrated no decrease in suppleness. Eyes: General/bilateral: Pupils: - PERRLA. Ears: Right Ear: Tympanic Membrane: - Normal. Left Ear: Tympanic Membrane: - Normal. Nose: General/bilateral: Discharge: - Nasal discharge. - Mucoid nasal discharge. Cavity: - Nasal mucosa red. - Nasal turbinate swollen. - Nasal turbinate hypertrophied. Pharynx: Oropharynx: - Soft palate was normal. Mucosal: - Pharynx showed an accumulation of mucous. Lymph Nodes: - Normal. Lungs: - A decrease in breath sounds was heard in the base of the right lung. - A decrease in breath sounds was heard in the left lung. - A decrease in breath sounds was heard in the base of the left lung. Cardiovascular: Heart Rate And Rhythm: - Normal. Abdomen: Auscultation: - Bowel sounds were normal. Palpation: - No direct tenderness in the abdomen. Skin: - Mucous membranes were not dry. Therapy - The options include decongestants as needed per product instructions and antihistamines as needed per product instructions. - Watch for signs/symptoms of infection return to the clinic if seen and smoking cessation with intervention and counseling. - Medication instruction. - Continue current medication. - Plan of care reviewed and agreed to by the patient. Pt to use prescription as ordered. Purpose of and use of medication discussed. . Pt to use OTC fever/pain product as needed per product instruction. . Pt to use OTC cough product as needed per product instruction. . Pt to use OTC expectorant product as needed per product instruction. . Counseling/Education - Go to the emergency room if condition worsens - Patient education about antibiotics: need to finish even if feeling better Discussed Finish full prescription of antibiotics. Drink 8-8oz glasses of water a day. Rest for a few days. Tylenol or Motrin for pain/fever. If diarrhea develops please eat yogurt daily and BRAT diet Plan StartCited - Acute cough Amoxicillin-Pot Clavulanate 600-42.9 MG/5ML mL take 7 ml BID x 10 days, 10 days, 0 refills EndCited StartCited - Chronic obstructive pulmonary disease, unspecified predniSONE 20 MG tablet One tablet twice a day, 5 days, 0 refills EndCited - Return to the clinic if condition worsens or new symptoms arise - Follow-up visit in 1-2 weeks with an office visit or sooner if symptoms persist or worsen - Patient to call if problem develops Practice Management Use of tobacco assessment performed Review of medications documented. Health Reminders - Assess BMI satisfied 12/15/2022. - Assess Need for CT Lung Screen satisfied 12/15/2022. - Assess Tobacco Use satisfied 12/15/2022. - Smoking & Tobacco Cessation Intervention and Counseling satisfied 12/15/2022.
--- OUTSIDE RECORDS SUMMARY | 2024-03-09 10:20 | XMS_ITS | Clinical Summary ---
Author Organization [facility] Address [address] [place] [address] Phone Care Team Providers Care Manager Supply Chain Planning Name Role Phone DR KM Primary Care Provider ELIANA Jarrett DO Unavailable [phone] Reason for Visit and Chief Complaint The Chief Complaint is: PT C/O DRY COUGH, SOB, HEADACHE, SORE THROAT. 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 Last Documented On 2 11:55AM ; [facility] Plan of Treatment - Return to the clinic if condition worsens or new symptoms arise - Last Documented On 11/20/2022 8:02PM ; [facility] - Follow-up visit in 1-2 weeks with an office visit or sooner if symptoms persist or worsen - Last Documented On 11/20/2022 8:02PM ; [facility] - Patient to call if problem develops - Last Documented On 11/20/2022 8:02PM ; [facility] Pending Tests Order Diagnosis Results Due Ordering P rovider Injections Depo-Medrol 80MG Cough, unspecified 11/20/22 BRI YING FLARE MAKER-BC Last Documented On 3 8:02PM ; [facility] Injections Theraputic Injection Cough, unspecified 3 BRI HYATTP-BC Last Documented On 3 8:02PM ; [facility] Instructions to patient Go to the emergency room if condition worsens Last Documented On 3 7:00PM ; [facility] Watch for signs/symptoms of infection Last Documented On 3 7:00PM ; [facility] Watch for signs/symptoms of infection, return to the clinic if seen Last Documented On 3 7:00PM ; [facility] Education and Decision Aids were provided during visit for: Patient education about anti biotics: need to finish even if feeling better Last Documented On 3 7:00PM ; [facility] Assessments Includes: Assessments from this encounter No Assessments Recorded Instructions Includes: Instructions from this encounter Instructions to patient Go to the emergency room if condition worsens Last Documented On 3 7:00PM ; [facility] Watch for signs/symptoms of infection Last Documented On 3 7:00PM ; [facility] Watch for signs/symptoms of infection, return to the clinic if seen Last Documented On 3 7:00PM ; [facility] Education and Decision Aids were provided during visit for: Patient education about anti biotics: need to finish even if feeling better Last Documented On 3 7:00PM ; [facility] Medical Equipment - Implanted Devices Includes: Current Devices No Medical Equipment Recorded Medications Includes: Medications discussed during this encounter and other current Medications New / Renewed during this visit BRI [facility] on 11/20/2022 predniSONE 20 MG Oral Tablet Provider: BRI [facility]ING [facility] 5 day supply: 10 tablet, 0 refills Diagnosis: Cough, unspecified take one tablet twice a day for five days Pharmacy: [address], [id number] - Last Documented On 3 4:13PM By Mitra VO ; [facility] Ipratropium-Albuterol 0.5-2. 5 (3) MG/3ML Inhalation Solution Provider: BRI GRESHAM [facility] 30 day supply: 3 mL, 0 refills Diagnosis: Chronic obstructive pulmonary disease, unspecified one vial via nebulization ev lacey 6 hours as needed dispense one box Pharmacy: [address], [id number] - Last Documented On 3 7:08PM [facility] ; [facility] Doxycycline Hyclate 100 MG Oral Capsule Provider: BRI THOMPSON 10 day supply: 20 capsule, 0 refills Diagnosis: Cough, unspecified 1 CAPSULE TWO TIMES A DAY Pharmacy: [address], [id number] - Last Documented On 3 7:08PM By [facility] ; [facility] Current Medications (continue as prescribed) Amoxicillin-Pot Clavulanate 600-42.9 MG/5ML Oral Suspension Reconstituted 02/13/2023 Provider: BRI THOMPSON Diagnosis: Cellulitis and a bscess of mouth take 7 ml twice daily for 10days Last Documented On 3 4:36PM By [facility] ; [facility] predniSONE 20 MG Oral Tablet 12/15/2022 Provider: BRI THOMPSON Diagnosis: Chronic obstruct kemi pulmonary disease, unspecified One tablet twice a day Last Documented On 3 7:27PM By BRI YING [facility] ; [facility] Trelegy Ellipta 200-62.5-25 MCG/ACT Inhalation Aerosol Powder Breath Activated 06/23/2022 Provider: Diagnosis: Last Documented On 07/02/2022 5:43PM By Gretchen Dial MA ; [facility] busPIRone HCl 5 MG Oral Tablet 06/10/2022 Provider: Diagnosis: Last Documented On 07/02/2022 5:43PM By Gretchen Dial MA ; [facility] Indomethacin 50 MG Oral Capsule 05/28/2022 Provider: Diagnosis: Last Documented On 07/02/2022 5:43PM By Gretchen Dial MA ; [facility] Nortriptyline HCl 10 MG Oral Capsule 05/28/2022 Prov ider: Diagnosis: Last Documented On 07/02/2022 5:43PM By Gretchen Dial MA ; [facility] Albuterol Sulfate (2.5 MG/3ML) 0.083% Inhalation Nebulization solution 01/06/2022 Provider: RHETT ORTIZ Diagnosis: Chr obstructive pulmon disease with (acute) lower resp infct 3 ml inahled q6 hours prn for wheezing Last Documented On 2 5:51PM By Rhett ORTIZ ; [facility] Crestor 5MG Oral Tablet 09/08/2018 Provider: Diagnosis: Wednesday and Wednesday Last Documented On 09/08/2018 7:12PM By LINDA VO ; [facility] Cyanocobalamin 1000MCG/ML Injection Solution 8 Provider: Diagnosis: inj twice monthyl Last Documented On 8 6:39PM By LUCIE THOMPSON ; [facility] Past Medications on file Benzonatate 200 MG Oral Capsule 10/06/2022 - 3 Provider: BELINDA HUTCHINSON APRN Diagnosis: Take one capsule three times daily as needed for cough Last Documented On 10/06/2022 6:00PM By Belinda Hutchinson APRN ; [facility] Ventolin HFA 108 (90 Base) MCG/ACT Inhalation Aerosol Solution 10/06/2022 - 11/05/2022 Provider: BELINDA Croft PRTasha Diagnosis: inhale 2 puffs every 4-6 sami rs as needed for shortness of breath, cough, or wheezing Last Documented On 10/06/2022 6:00PM By Belinda Hutchinson APRN ; [facility] Amoxicillin-Pot Clavulanate 875-125 MG Oral Tablet 07/08/2022 - 07/18/2022 Provider: BELINDA Goetz APRN Diagnosis: One tablet twice a day Last Documented On 07/08/2022 7:19PM By Belinda Hutchinson APRN ; [facility] ProAir HFA 108 (90 Base) MCG/ACT Inhalation Aerosol Solution 10/10/2021 - 11/09/2021 Provider: DAKOTA ORTIZ Diagnosis: Cough, unspecifi ed as directed 1-2 puffs q4-6 hours prn Last Documented On 2 1:13PM By BRI THOMPSON ; [facility] Medications Administered Includes: Administered Medications from this encounter Medications Administered Diagnosis Date Pro vider DEPO-Medrol 80 MG/ML IJ SUSP 11/20/2022 BRI LONGO Last Documented On 3 7:03PM By MITRA VO ; [facility] Vital Signs Includes: Vital Signs from this encounter Vital Name 11/20/2022 06:37P Blood Pressure Sitting L 116/78 BP Cuff Size Regular Pulse Rate-Sitting (bpm) 90 Respiration Rate (breaths/min) 20 Temp-Oral (F) 97.6 Height (in) 62 Weight (lb) 153.8 Body Mass Index 28.1 Body Surface Area 1.7 Oxygen Saturation (%) 97 Last Documented: On 11/20/2022 6:38PM ; [facility] Results Includes: Results discussed during this encounter [...] No abdominal pain - No diarrhea - Vertigo - No skin symptoms Pt to clinic for cough, congestion, wheezing x 7 days she has been doing her inhaler and nebulizer Social History Description Last Updated Tobacco non-user 10/06/2022 Last Documented On 3 6:37PM ; [facility] Former smoker 10/02/2022 Last Documented On 3 6:37PM ; [facility] Current nonsmoker 08/28/2020 Last Documented On 3 6:37PM ; [facility] Smoker 06/30/2019 Last Documented On 3 6:37PM ; [facility] Cigarette smoking 1 pack(s)/day 06/25/19 19 Last Documented On 3 6:37PM ; [facility] 06/24/2018 Last Documented On 3 6:37PM ; [facility] Tobacco use 15 YEARS 06/24/2018 Last Documented On 3 6:37PM ; [facility] Smoking Status Unknown Procedures and Surgical History Includes: Procedures from this encounter Procedures Code Diagnosis Performing Provider Service L ocation Service Date medication instruction Last Documented On 3 7:00PM ; [facility] continue current medication Last Documented On 3 7:00PM ; [facility] the options include decongestants as nee ded per product instructions Last Documented On 3 7:00PM ; [facility] the options include antihistamines as ne eded per product instructions Last Documented On 3 7:00PM ; [facility] watch for signs/symptoms of infection Last Documented On 3 7:00PM ; [facility] watch for signs/symptoms of infection, r eturn to the clinic if seen Last Documented On 3 7:00PM ; [facility] Pt to use prescription as ordered. Purpo se of and use of medication discussed.~ Last Documented On 3 7:00PM ; [facility] Pt to use OTC fever/pain product as need ed per product instruction.~ Last Documented On 3 7:00PM ; [facility] Pt to use OTC cough product as needed pe r product instruction.~ Last Documented On 3 7:00PM ; [facility] Pt to use OTC expectorant product as nee ded per product instruction.~ Last Documented On 3 7:00PM ; [facility] plan of care reviewed and agreed to by t he patient Last Documented On 3 6:59PM ; [facility] use of tobacco assessment performed 1000F Last Documented On 3 6:37PM ; [facility] Surgical History Last Updated History of hysterectomy 1994 06/24/2018 Last Documented On 3 6:37PM ; [facility] Medical History Includes: Medical History addressed during this encounter Description Last Updated Taking OTC allergy medication 06/01/2022 Last Documented On 3 6:37PM ; [facility] Taking OTC pain medication / fever. Stephanie myers Motrin 12/02/2021 Last Documented On 3 6:37PM ; [facility] Date COVID symptoms started: 04 29 202105/03/2021 Last Documented On 3 6:37PM ; [facility] Surgery BLADDER TUMOR 1985 06/24/2018 Last Documented On 3 6:37PM ; [facility] Family History Includes: Family History addressed during this encounter Description Last Updated Family history of cancer 06/24/2018 Last Documented On 3 6:37PM ; [facility] Review of Systems Includes: Review of Systems [...] ctive Last Documented On 3 4:13PM ; [facility] Rocephin Allergy causes high BP 04/06/2017 Acti ve Last Documented On 3 4:13PM ; [facility] Novocain Allergy 04/24/2008 Active Last Documented On 3 4:13PM ; [facility] Levaquin Allergy 04/24/2008 Active Last Documented On 3 4:13PM ; [facility] Cephalosporins Allergy 04/24/2008 Acti ve Last Documented On 3 4:13PM ; [facility] Aspirin Allergy 04/24/2008 Active Last Documented On 3 4:13PM ; [facility] Encounters Encounter Provider Location Date Check-In Time Check-Out Time Diagnosis COVID SICK VISIT- ESTABLISHED PATIENT BRI HYATTP-BC [facility] 11/21/19 23 6:23PM 6:54PM Insurance Includes: Active Insurance Policies Plan Name Member ID Group # Subscriber Relationship Effect kemi Dates 1 - [facility] [id number] EPIFANIO CAGLE Self Clinical Notes Includes: Clinical Notes from this encounter * Progress note Date Encounter Last Documented by 11/20/2022 COVID SICK VISIT- ESTABLISHED [employer] Last documented on 11/20/2022; 8:02 PM, BRI YING FLARE MAKER-BC; [facility] Active Problems & Conditions - Chronic Obstructive Pulmonary Disease Chief Complaint The Chief Complaint is: PT [...] No abdominal pain - No diarrhea - Vertigo - No skin symptoms Pt to clinic for cough, congestion, wheezing x 7 days she has been doing her inhaler and [...] twice monthyl, 0 days, 0 refills - Indomethacin 50 MG Oral Capsule 20 days, 0 refills - Nortriptyline HCl 10 MG Oral Capsule 30 days, 0 refills - Trelegy Ellipta 200-62.5-25 MCG/ACT Inhalation Aerosol Powder Breath Activated 30 days, 0 refills Past Medical/Surgical History Reported: Surgery BLADDER TUMOR 1984. Medications: Taking OTC pain medication / fever. Using Motrin and [id number] allergy medication. Exposure: Date COVID symptoms started: [...] up sputum. Physical Findings - Vitals taken 11/20/2022 06:37 pm BP-Sitting L 116/78 mmHg BP Cuff Size Regular Pulse Rate-Sitting 90 bpm Respiration Rate 20 per min Temp-Oral 97.6 F Height 62 in Weight 153 lbs 12.8 oz Body Mass Index 28.1 kg/m2 Body Surface Area 1.7 m2 Oxygen Saturation 97 % General Appearance: - Well-appearing. - Well [...] Mucous membranes were not dry. Therapy - Other Administered 1 mL of DEPO-Medrol 80 MG/ML on 11/20/22 06:30p - The options include decongestants as needed per product instructions and antihistamines as needed per product instructions. - Watch for signs/symptoms of infection return to the clinic if seen. - Medication instruction. - Continue current medication. [...] daily and BRAT diet Plan StartCited - Chronic obstructive pulmonary disease, unspecified Ipratropium-Albuterol 0.5-2.5 (3) MG/3ML mL one vial via nebulization every 6 hours as needed dispense one box, 30 days, 0 refills EndCited StartCited - Cough, unspecified Injections: Depo-Medrol 80MG, Theraputic Injection predniSONE 20 MG tablet take one tablet twice a day for five days, 5 days, 0 refills Doxycycline Hyclate 100 MG capsule 1 CAPSULE TWO TIMES A DAY, 10 days, 0 refills EndCited - Return to the clinic if condition worsens or new symptoms arise - Follow-up visit in 1-2 weeks with an office visit or sooner if symptoms persist or worsen - Patient to call if problem develops Practice Management Use of tobacco assessment performed. Health Reminders - Assess BMI satisfied 11/20/2022. - Assess Need for CT Lung Screen satisfied 11/20/2022. - Assess Tobacco Use satisfied 11/20/2022.
--- OUTSIDE RECORDS SUMMARY | 2024-03-09 10:20 | XMS_ITS | Clinical Summary ---
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 Name Role Phone DR KM Primary Care Provider ELIANA Jarrett DO Unavailable [phone] Reason for Visit and Chief Complaint The Chief Complaint is: Here for Vit B12 injection-brought her own B12 injection in today Problems Includes: Problems addressed during this encounter and other active Problems All Visits Onset Date Resolved Date Provider Condition S tatus Chronic Obstructive Pulmonary Disease 05/30/2021 RHETT HYATTP-Amirah Active Last Documented On 2 11:55AM ; [facility] Plan of Treatment Pending Tests Order Diagnosis Results Due Ordering P rovider Injections Theraputic Injection Deficiency of other specified B group vitamins 11/06/22 BRI YING [employer] Last Documented On 3 4:54PM ; [facility] Assessments Includes: Assessments from this encounter No Assessments Recorded Medical Equipment - Implanted Devices Includes: Current Devices No Medical Equipment Recorded Medications Includes: Medications discussed during this encounter and other current Medications Discontinued / Stopped on this date RHETT ORTIZ on 10/07/2022 Azithromycin 250 MG Oral Tablet Provider: RHETT ORTIZ Diagnosis: Last Documented On 11/06/2022 4:28PM By LINDA VO ; [facility] Azithromycin 250 MG Oral Tablet Provider: RHETT N GLOVER [employer]C Diagnosis: Chr obstructive pulmon disease with (acute) lower resp infct Last Documented On 11/06/2022 4:28PM By LINDA VO ; [facility] predniSONE 20 MG Oral Tablet Provider: RHETT GLOVER [employer] Diagnosis: Chr obstructive pulmon disease with (acute) lower resp infct Last Documented On 11/06/2022 4:28PM By LINDA VO ; [facility] Current Medications (continue as prescribed) Amoxicillin-Pot Clavulanate 600-42.9 MG/5ML Oral Suspension Reconstituted 02/13/2023 Provider: BRI Thompson [facility]- Diagnosis: Cellulitis and a bscess of mouth take 7 ml twice daily for 10days Last Documented On 3 4:36PM By BRI YING [facility] ; [facility] predniSONE 20 MG Oral Tablet 12/15/2022 [facility]: [facility] Diagnosis: Chronic obstruct kemi pulmonary disease, unspecified One tablet twice a day Last Documented On 3 7:27PM By BRI YING [facility] ; [facility] Ipratropium-Albuterol 0.5-2. 5 (3) MG/3ML Inhalation Solution 11/20/2022 Provider: BRI GRESHAM [facility]- Diagnosis: Chronic obstruct kemi pulmonary disease, unspecified one vial via nebulization ev lacey 6 hours as needed dispense one box Last Documented On 3 7:08PM By BRI YING [facility] ; [facility] Doxycycline Hyclate 100 MG O ral Capsule 11/20/2022 Provider: BRI YING [facility] Diagnosis: Cough, unspecifi ed 1 CAPSULE TWO TIMES A DAY Last Documented On 3 7:08PM By BRI YING [facility] ; [facility] Trelegy Ellipta 200-62.5-25 MCG/ACT Inhalation Aerosol Powder Breath Activated 06/23/2022 Provider: Diagnosis: Last Documented On 07/02/2022 5:43PM By Gretchen Dial MA ; [facility] busPIRone HCl 5 MG Oral Tablet 06/10/2022 Provider: Diagnosis: Last Documented On 07/02/2022 5:43PM By Gretchen Dial MA ; [facility] Indomethacin 50 MG Oral Capsule 05/28/2022 Provider: Diagnosis: Last Documented On 07/02/2022 5:43PM By Gretchen Dial MA ; [facility] Nortriptyline HCl 10 MG Oral Capsule 05/28/2022 Prov ider: Diagnosis: Last Documented On 07/02/2022 5:43PM By Gretchen Dial MA ; [facility] Albuterol Sulfate (2.5 MG/3ML) 0.083% Inhalation Nebulization solution 01/06/2022 Provider: RHETT ORTIZ Diagnosis: Chr obstructive pulmon disease with (acute) lower resp infct 3 ml inahled q6 hours prn for wheezing Last Documented On 5:51PM By Rhett ORTIZ ; [facility] Crestor 5MG Oral Tablet 09/08/2018 Provider: Diagnosis: Wednesday and Wednesday Last Documented On 09/08/2018 7:12PM By ILNDA VO ; [facility] Cyanocobalamin 1000MCG/ML Injection Solution 8 Provider: Diagnosis: inj twice monthyl Last Documented On 8 6:39PM By LUCIE SEGUNDO [facility]- ; [facility] Past Medications on file Benzonatate 200 MG Oral Capsule 10/06/2022 - Provider: BELINDA HUTCHINSON APRN Diagnosis: Take one capsule three times daily as needed for cough Last Documented On 10/06/2022 6:00PM By Belinda Hutchinson APRN ; [facility] Ventolin HFA 108 (90 Base) MCG/ACT Inhalation Aerosol Solution 10/06/2022 - 11/05/2022 Provider: BELINDA Croft PRN Diagnosis: inhale 2 puffs every 4-6 sami rs as needed for shortness of breath, cough, or wheezing Last Documented On 10/06/2022 6:00PM By Belinda Hutchinson APRN ; [facility] Amoxicillin-Pot Clavulanate 875-125 MG Oral Tablet 07/08/2022 - 07/18/2022 Provider: BELINDA Goetz APRN Diagnosis: One tablet twice a day Last Documented On 07/08/2022 7:19PM By Belinda Hutchinson APRN ; [facility] ProAir HFA 108 (90 Base) MCG/ACT Inhalation Aerosol Solution 10/10/2021 - 11/09/2021 Provider: DAKOTA ORTIZ Diagnosis: Cough, unspecifi ed as directed 1-2 puffs q4-6 hours prn Last Documented On 2 1:13PM By BRI STRATTON-DIEGO ; [facility] Medications Administered Includes: Administered Medications from this encounter Medications Administered Diagnosis Date Pro vider Cyanocobalamin 1000 MCG/ML IJ SOLN Vitamin B12 deficiency anemia, unspecified 11/06/2022 BRI THOMPSON Rt deltoid IM Last Documented On 3 4:46PM By LINDA VO ; [facility] Vital Signs Includes: Vital Signs from this encounter Vital Name 11/06/2022 04:28P Blood Pressure Sitting L 120/70 BP Cuff Size Regular Pulse Rate-Sitting (bpm) 93 Pulse Rhythm Regular Respiration Rate (breaths/min) 21 Temp-Oral (F) 97.8 Height (in) 62 Weight (lb) 152.8 Body Mass Index 27.9 Body Surface Area 1.7 Oxygen Saturation (%) 97 Last Documented: On 11/06/2022 4:43PM ; [facility] Results Includes: Results discussed during this encounter No Results Recorded For Specified Dates History of Present Illness Includes: History of Present Illness from this encounter PRASANTH CAGLE is a 62 year old female. - Allergy list reviewed - Medication list reviewed Social History Description Last Updated Tobacco non-user 10/06/2022 Last Documented On 3 4:28PM ; [facility] Former smoker 10/02/2022 Last Documented On 3 4:28PM ; [facility] Current nonsmoker 08/28/2020 Last Documented On 3 4:28PM ; [facility] Smoker 06/30/2019 Last Documented On 3 4:28PM ; [facility] Cigarette smoking 1 pack(s)/day 06/25/19 19 Last Documented On 3 4:28PM ; [facility] 06/24/2018 Last Documented On 3 4:28PM ; [facility] Tobacco use 15 YEARS 06/24/2018 Last Documented On 3 4:28PM ; [facility] Smoking Status Unknown Procedures and Surgical History Includes: Procedures from this encounter Procedures Code Diagnosis Performing Provider Service L ocation Service Date use of tobacco assessment performed 1000F Last Documented On 3 4:28PM ; [facility] Surgical History Last Updated History of hysterectomy 1994 06/24/2018 Last Documented On 3 4:28PM ; [facility] Medical History Includes: Medical History addressed during this encounter Description Last Updated Taking OTC allergy medication 06/01/2022 Last Documented On 3 4:28PM ; [facility] Taking OTC pain medication / fever. Usin g Motrin 12/02/2021 Last Documented On 3 4:28PM ; [facility] Date COVID symptoms started: 04 29 202105/03/2021 Last Documented On 3 4:28PM ; [facility] Surgery BLADDER TUMOR 1985 06/24/2018 Last Documented On 3 4:28PM ; [facility] Family History Includes: Family History addressed during this encounter Description Last Updated Family history of cancer 06/24/2018 Last Documented On 3 4:28PM ; [facility] Review of Systems Includes: Review of Systems from this encounter No Review of Systems Recorded Mental Status Includes: Mental Status from this encounter No Mental Status Recorded Functional Status Includes: Functional Status from this encounter No Functional Status Recorded Physical Exam Includes: Physical Exam from this encounter Allergies Includes: Active Allergies Substance Type Reaction Onset Date Resolved Date Statu s Sulfa Antibiotics Allergy 04/24/2008 A ctive Last Documented On 3 4:13PM ; [facility] Rocephin Allergy causes high BP 04/06/2017 Acti ve Last Documented On 3 4:13PM ; [facility] Novocain Allergy 04/24/2008 Active Last Documented On 3 4:13PM ; [facility] Levaquin Allergy 04/24/2008 Active Last Documented On 3 4:13PM ; [facility] Cephalosporins Allergy 04/24/2008 Acti ve Last Documented On 3 4:13PM ; [facility] Aspirin Allergy 04/24/2008 Active Last Documented On 3 4:13PM ; [facility] Encounters Encounter Provider Location Date Check-In Time Check-Out Time Diagnosis WALK IN PATIENT - ESTABLISHED PT BRI YING [facility] 11/07/19 23 4:22PM 4:38PM Insurance Includes: Active Insurance Policies Plan Name Member ID Group # Subscriber Relationship Effect kemi Dates 1 - [facility] [id number] EPIFANIO CAGLE Self Clinical Notes Includes: Clinical Notes from this encounter * Progress note Date Encounter Last Documented by 11/06/2022 WALK IN PATIENT - ESTABLISHED PT Last documented on 11/06/2022; 4:54 PM, BRI YING [facility]; [facility] Active Problems & Conditions - Chronic Obstructive Pulmonary Disease Chief Complaint The Chief Complaint is: Here for Vit B12 injection-brought her own B12 injection in today. History of Present Illness EPIFANIO CAGLE is a 62 year old female. - Allergy list reviewed - Medication list reviewed Current Medication - Albuterol Sulfate (2.5 MG/3ML) [...] pain medication / fever. Using Motrin and dgwe-nzm-beukeza allergy medication. Exposure: Date COVID symptoms started: 04 29 2021. Surgical: - Hysterectomy 1993 Social History Tobacco use: Tobacco use 15 YEARS, cigarette smoking 1 pack(s)/day, former smoker, current nonsmoker, and smoker. Marital: . Allergies - Aspirin - Cephalosporins - Levaquin - Novocain - Rocephin Reaction: causes high BP (Moderate to Severe) - Sulfa Antibiotics Family History Cancer Physical Findings - Vitals taken 11/06/2022 04:28 pm BP-Sitting L 120/70 mmHg BP Cuff Size Regular Pulse Rate-Sitting 93 bpm Pulse Rhythm Regular Respiration Rate 21 per min Temp-Oral 97.8 F Height 62 in Weight 152 lbs 12.8 oz Body Mass Index 27.9 kg/m2 Body Surface Area 1.7 m2 Oxygen Saturation 97 % Therapy - Vitamin B12 deficiency anemia, unspecified Administered 1 mL of Cyanocobalamin 1000 MCG/ML on 11/06/22 04:45p, Rt deltoid IM Plan StartCited - Deficiency of other specified B group vitamins Injections: Theraputic Injection EndCited Practice Management Use of tobacco assessment performed. Health Reminders - Assess BMI satisfied 11/06/2022. - Assess Need for CT Lung Screen satisfied 11/06/2022. - Assess Tobacco Use satisfied 11/06/2022.
--- OUTSIDE RECORDS SUMMARY | 2024-03-09 10:20 | XMS_ITS | Clinical Summary ---
Author Organization [facility] Address [address] [place] [address] Phone Care Team Providers Care Librarian Head Name Role Phone DR KM Primary Care Provider ELIANA Jarrett DO Unavailable [phone] Reason for Visit and Chief Complaint * PHONE CALL Problems Includes: Problems addressed during this encounter and other active Problems All Visits Onset Date Resolved Date Provider Condition S tatus Chronic Obstructive Pulmonary Disease 05/30/2021 RHETT ORTIZ Active Last Documented On 11:55AM ; [facility] Plan of Treatment No Plan of Treatment Recorded Assessments Includes: Assessments from this encounter No Assessments Recorded Medical Equipment - Implanted Devices Includes: Current Devices No Medical Equipment Recorded Medications Includes: Medications discussed during this encounter and other current Medications New / Renewed during this visit RHETT ORTIZ on 10/07/2022 Azithromycin 250 MG Oral Tablet Provider: RHETT ORTIZ 5 day supply: 6 tablet, 0 refills Diagnosis: as directed take 2 tab po qd for 1 day then take 1 tab po qd for 4 days Pharmacy: [facility] [address], [phone] - Last Documented On 11/06/2022 4:28PM By LINDA VO ; [facility] Current Medications (continue as prescribed) Amoxicillin-Pot Clavulanate 600-42.9 MG/5ML Oral Suspension Reconstituted 02/13/2023 Provider: BRI Thompson [facility] Diagnosis: Cellulitis and a bscess of mouth take 7 ml twice daily for 10days Last Documented On 3 4:36PM By BRI YING [facility] ; [facility] predniSONE 20 MG Oral Tablet 12/15/2022 Provider: BRI YING [facility] Diagnosis: Chronic obstruct kemi pulmonary disease, unspecified One tablet twice a day Last Documented On 3 7:27PM By BRI YING [facility] ; [facility] Ipratropium-Albuterol 0.5-2. 5 (3) MG/3ML Inhalation Solution 11/20/2022 Provider: BRI GRESHAM [facility] Diagnosis: Chronic obstruct kemi pulmonary disease, unspecified one vial via nebulization ev lacey 6 hours as needed dispense one box Last Documented On 3 7:08PM By BRI YING [facility] ; [facility] Doxycycline Hyclate 100 MG O ral Capsule 11/20/2022 Provider: BRI YING [facility] Diagnosis: Cough, unspecifi ed 1 CAPSULE TWO TIMES A DAY Last Documented On 3 7:08PM By BRI YING [facility] ; [facility] Trelegy Ellipta 200-62.5-25 MCG/ACT Inhalation Aerosol Powder Breath Activated 06/23/2022 Provider: Diagnosis: Last Documented On 07/02/2022 5:43PM By Gretchen Dial MA ; [facility] busPIRone HCl 5 MG Oral Tablet 06/10/2022 Provider: Diagnosis: Last Documented On 07/02/2022 5:43PM By Gretchen Dial MA ; [facility] Indomethacin 50 MG Oral Capsule 05/28/2022 Provider: Diagnosis: Last Documented On 07/02/2022 5:43PM By Gretchen Dial MA ; [facility] Nortriptyline HCl 10 MG Oral Capsule 05/28/2022 Prov ider: Diagnosis: Last Documented On 07/02/2022 5:43PM By Gretchen Dial MA ; [facility] Albuterol Sulfate (2.5 MG/3ML) 0.083% Inhalation Nebulization solution 01/06/2022 Provider: RHETT ORTIZ Diagnosis: Chr obstructive pulmon disease with (acute) lower resp infct 3 ml inahled q6 hours prn for wheezing Last Documented On 2 5:51PM By Rhett ORTIZ ; [facility] Crestor 5MG Oral Tablet 09/08/2018 Provider: Diagnosis: Wednesday and Wednesday Last Documented On 09/08/2018 7:12PM By LINDA VO ; [facility] Cyanocobalamin 1000MCG/ML Injection Solution 8 Provider: Diagnosis: inj twice monthyl Last Documented On 8 6:39PM By LUCIE STRATTON- ; [facility] Medications Administered Includes: Administered Medications from this encounter No Administered Medications Recorded Results Includes: Results discussed during this encounter No Results Recorded For Specified Dates History of Present Illness Includes: History of Present Illness from this encounter No History of Present Illness Recorded Social History No Social History Recorded - Smoking Status Unknown Medical History Includes: Medical History addressed during this encounter No Medical History Recorded Family History Includes: Family History addressed during this encounter No Family History Recorded Review of Systems Includes: Review of Systems from this encounter No Review of Systems Recorded Mental Status Includes: Mental Status from this encounter No Mental Status Recorded Functional Status Includes: Functional Status from this encounter No Functional Status Recorded Physical Exam Includes: Physical Exam from this encounter No Physical Exam Recorded Allergies Includes: Active Allergies Substance Type Reaction Onset Date Resolved Date Statu s Sulfa Antibiotics Allergy 04/24/2008 A ctive Last Documented On 3 4:13PM ; [facility] Rocephin Allergy causes high BP 04/06/2017 Acti ve Last Documented On 3 4:13PM ; [facility] Novocain Allergy 04/24/2008 Active Last Documented On 3 4:13PM ; [facility] Levaquin Allergy 04/24/2008 Active Last Documented On 3 4:13PM ; [facility] Cephalosporins Allergy 04/24/2008 Acti ve Last Documented On 3 4:13PM ; [facility] Aspirin Allergy 04/24/2008 Active Last Documented On 3 4:13PM ; [facility] Encounters Encounter Provider Location Date Check-In Time Check-Out Time Diagnosis * PHONE CALL RHETT Cordova [facility] 3 4:20PM 11:59PM Insurance Includes: Active Insurance Policies Plan Name Member ID Group # Subscriber Relationship Effect kemi Dates 1 - [facility] [id number] EPIFANIO Thompson RASHARDMckayla Self Clinical Notes Includes: Clinical Notes from this encounter * Progress note Date Encounter Last Documented by 10/07/2022 * PHONE CALL Last documented on 10/07/2022; 4:27 PM, RHETT Cordova BELEN ORTIZ; [facility] Chief Complaint Phone Call - Chief Concern: reason for call:She was seen yesterday here in the office and Maryuri would not give her a antibx because of her sx being viral, she calls back today stating she is worst then yesterday-coughing a lot-green phlegm, and coughing at night keeping her up at night, S.T-feels raw, no fever [id number], if you call in Augmentin-It needs to be liquid, but any other antibx can be pill form, Please advise?? pt phone # for return call:[phone] date/initials:10/07/22. Plan StartCited - Other Azithromycin 250 MG tablet as directed take 2 tab po qd for 1 day then take 1 tab po qd for 4 days, 5 days, 0 refills EndCited
== END 2024-03-05 12:00 | disposition home or self-care (01) ==
PROVIDERS: Emergency Provider Nurse Practitioner Family
DX: J40 Bronchitis, not specified as acute or chronic (principal); Z20.822 Contact with and (suspected) exposure to COVID-19; J44.9 Chronic obstructive pulmonary disease, unspecified
CPT/HCPCS: 87426; 87804; 99203; G0463

== ENCOUNTER 2024-07-26 16:26 | Emergency (ER) | payer OTHER, SELFPAY ==
[2024-07-26 16:40] VITALS: BP 138/69; PULSE 100; RESP 16; TEMP 36.7; O2SAT 95
[2024-07-26] MEDS: IPRATROPIUM 0.5 MG/ALBUTEROL SULFATE 2.5 MG AMPUL.NEB 3 ML INHALATION (16:49)
[2024-07-26] MEDS: methylPREDNISolone SOD SUCC 125 MG VIAL IM (16:49)
--- NOTE | 2024-07-26 17:08 | ED_ITS ---
HPI - General Adult General Chief complaint: Upper Respiratory Infection Stated complaint: Asthma/Headache/Sore Throat Time Seen by Provider: 07/26/24 16:45 Source: patient Mode of arrival: ambulatory Limitations: no limitations History of Present Illness HPI narrative: 64-year-old female with history asthma presents today with complaint shortness of breath, coughing. Patient reports that she visited her son over the weekend his new house. Started with coughing, shortness of breath and chest tightness shortly after visit. States she breathing a lot of saw dust . Has been doing albuterol nebs at home with little relief. All systems reviewed and negative except as noted above. Related Data Home Medications ?Medication ?Instructions ?Recorded ?Confirmed ?Last Taken ?Type albuterol sulfate 1.25 mg/3 mL 1.25 mg inhalation Q4-8H PRN 03/05/24 03/05/24 History solution for nebulization shortness of breath or wheezing albuterol sulfate 90 mcg/actuation 2 puff inhalation Q4-6H PRN 03/05/24 Unknown History aerosol inhaler shortness of breath or wheezing alendronate 70 mg tablet 70 mg PO WEEKLY 03/05/24 Unknown History cholecalciferol (vitamin D3) 1,250 1,250 mcg PO WEEKLY 03/05/24 Unknown History mcg (50,000 unit) capsule cyanocobalamin (vitamin B-12) 1,000 mcg IM MONTHLY 03/05/24 Unknown History 1,000 mcg/mL injection solution fluticasone fur. 200 mcg-umeclid 1 inh inhalation Q24H 03/05/24 Unknown History 62.5 mcg-vilant 25 mcg inhalat.powder (Trelegy Ellipta) montelukast 10 mg tablet 10 mg PO DAILY 03/05/24 Unknown History pantoprazole 40 mg tablet,delayed 40 mg PO HS 03/05/24 03/05/24 Unknown History release (Protonix) prednisone 5 mg tablet 7.5 mg PO DAILY 03/05/24 Unknown History rosuvastatin 10 mg tablet 10 mg PO DAILY 03/05/24 Unknown History Allergies Allergy/AdvReac Type Severity Reaction Status Date / Time ceftriaxone (From Rocephin) Allergy Intermediate HIVES Verified 07/26/24 16:42 Review of Systems Review of Systems: CONSTITUTIONAL: Denies fever, chills, or sweats. EYES: Denies visual changes, redness, or discharge. ENT: Denies rhinorrhea, congestion, sore throat, or otalgia. CARDIOVASCULAR: Denies chest pain, palpitations, or edema. RESPIRATORY: Reports cough, chest tightness, dyspnea. GASTROINTESTINAL: Denies abdominal pain, nausea, vomiting, or diarrhea. GENITOURINARY: Denies dysuria or hematuria. SKIN: Denies rash or itching. MUSCULOSKELETAL: Denies back pain, joint pain, or myalgia. NEUROLOGIC: Denies headache, numbness, or weakness. PSYCHIATRIC: Denies anxiety or depression. All other systems reviewed are negative, except as documented in HPI. FOR[facility]LY [facility], [facility] Past Medical History Medical History (Updated 07/26/24 @ 17:13 by Becca Escamilla NP) Adrenal insufficiency COPD (chronic obstructive pulmonary disease) Comments At time of signature, agree with nursing past medical, surgical, social and family history. There is no relevant family history pertinent to the presenting complaint. Exam Narrative: GENERAL: This is a well-nourished, well-developed patient, in no apparent distress. HEAD: normocephalic, atraumatic. EYES: PERRL. Sclera clear/white. Vision is grossly intact. EARS: External ears normal, auditory canals clear and without drainage, TMs normal without perforation. Hearing grossly intact. NOSE: External nose normal with no obvious nasal discharge, nares without redness, no rhinorrhea. THROAT: Mucous membranes moist, posterior pharynx clear. NECK: Neck supple, non-tender without lymphadenopathy, masses or thyromegaly. CARDIOVASCULAR: Regular rate and rhythm without murmurs, gallops, or rubs. RESPIRATORY: decreased throughout all lung snow, mild tachypnea. Breath sounds equal bilaterally. No wheezes, rales, or rhonchi. SKIN: warm, Dry, intact with no suspicious lesions or rash, good texture and turgor. NEURO: awake, alert, and oriented to person, place and time. There were no obvious focal neurologic abnormalities. EXTREMITIES: No joint tenderness, effusion, or edema noted. Course Course Level of Care: [facility] Care Visit Reevaluation(s) Reevaluation #1: oxygen saturation 95% room air. Tachypnea improved. continues to have mild decreased lung sounds throughout all lung snow. No wheezing. Vital Signs Vital signs: Vital Signs Temperature 36.7 C 07/26/24 16:40 Pulse Rate 100 07/26/24 16:40 Respiratory Rate 16 07/26/24 16:40 Blood Pressure 138/69 07/26/24 16:40 Pulse Oximetry 95 07/26/24 16:40 Oxygen Delivery Room Air 07/26/24 16:40 Temperature 36.7 C 07/26/24 16:40 Pulse Rate 100 07/26/24 16:40 Respiratory Rate 16 07/26/24 16:40 Blood Pressure 138/69 07/26/24 16:40 Pulse Oximetry 95 07/26/24 16:40 Oxygen Delivery Room Air 07/26/24 16:40 Reviewed Medical Decision Making MDM Narrative Medical decision making narrative: Will discharge with prednisone prescription. Recommend patient continue inhalers as prescribed and albuterol nebs. Will follow up with primary care physician as needed. Vital Signs Vital Signs: Vital Signs Temperature 36.7 C 07/26/24 16:40 Pulse Rate 100 07/26/24 16:40 Respiratory Rate 16 07/26/24 16:40 Blood Pressure 138/69 07/26/24 16:40 Pulse Oximetry 95 07/26/24 16:40 Oxygen Delivery Room Air 07/26/24 16:40 Temperature 36.7 C 07/26/24 16:40 Pulse Rate 100 07/26/24 16:40 Respiratory Rate 16 07/26/24 16:40 Blood Pressure 138/69 07/26/24 16:40 Pulse Oximetry 95 07/26/24 16:40 Oxygen Delivery Room Air 07/26/24 16:40 Discharge Plan Discharge Clinical Impression: Asthma exacerbation Qualifiers: Asthma severity: mild Asthma persistence: unspecified Qualified Code(s): J45.901 - Unspecified asthma with (acute) exacerbation Patient Disposition: Home Condition: Stable Instructions: Asthma (ED) Additional Instructions: Take medications as prescribed. Continue albuterol nebs and inhalers as prescribed. Follow-up with your doctor symptoms are not improving. Patient Language: Thai Prescriptions: New prednisone 20 mg tablet 20 mg PO DAILY Qty: 13 0RF Rx Instructions: take 2 tablets daily for 5 days then 1 tablet daily for 3 days No Action cholecalciferol (vitamin D3) 1,250 mcg (50,000 unit) capsule 1,250 mcg PO WEEKLY cyanocobalamin (vitamin B-12) 1,000 mcg/mL solution 1,000 mcg IM MONTHLY alendronate 70 mg tablet 70 mg PO WEEKLY albuterol sulfate 90 mcg/actuation HFA aerosol inhaler 2 puff INHALATION Q4-6H PRN (Reason: shortness of breath or wheezing) prednisone 5 mg tablet 7.5 mg PO DAILY rosuvastatin 10 mg tablet 10 mg PO DAILY montelukast 10 mg tablet 10 mg PO DAILY Trelegy Ellipta 200-62.5-25 mcg blister with device 1 inh INHALATION Q24H albuterol sulfate 1.25 mg/3 mL solution for nebulization 1.25 mg inhalation Q4-8H PRN (Reason: shortness of breath or wheezing) pantoprazole [Protonix] 40 mg tablet,delayed release (DR/EC) 40 mg PO HS amoxicillin-pot clavulanate [Augmentin ES-600] 600-42.9 mg/5 mL suspension for reconstitution 7.5 ml PO BID 7 Days Qty: 105 0RF prednisone 20 mg tablet 20 mg PO DAILY 4 Days Qty: 4 0RF Follow-up/Referrals: UNKNOWN,DOCTOR [Primary Care Provider] - Time of Disposition: 17:14
[2024-07-26 17:15] VITALS: O2SAT 95
--- OUTSIDE RECORDS SUMMARY | 2024-07-26 18:06 | XMS_ITS | Patient Health Record ---
Author Organization [employer] Address [address] [facility]. [address] [place] [phone] Care Team Providers Care Gang Drill Press Operator Name Role Phone Carley ANDRE, Juventino Primary Care Provider UnavailAdi Chávez Unavailable [phone] Reason For Referral No Information Plan Of Treatment No Information Insurance Providers Payer Name Payer Address Payer Phone Subscriber Number Group Number Insured Name Patient Relationship to Insured Coverage Start Date Coverage End Date Blue Access PPO [address] [place] [phone] [id number] Duyen King Self - patient is the insured
--- OUTSIDE RECORDS SUMMARY | 2024-07-26 18:07 | XMS_ITS | Encounter Summary ---
Author Organization [facility] Address [address] [place] [address] Care Team Providers Care Drapery Hemmer Automatic Name Role Phone Juventino Howe MD Primary Care Provider [phone] Encounter Details Date Type Department Care Team (Late Contact Info) Description 08/14/2008 Outpatient Historical [facility] Lynne Escobar MD [address] [place] [address] Social History Tobacco Use Types Packs/Day Years Used Date Smoking Tobacco: Never Alcohol Use Standard Drinks/Week Comments No 0 (1 standard drink = 0.6 oz pur e alcohol) Comments No Sex and Gender Information Value Date Recorded Sex Assigned at Not on file Legal Sex Female 3:38 AM BAGGAGE SCREENER Gender Identity Not on file Sexual Orientation Not on file documented as of this encounter Plan of Treatment Upcoming Encounters Date Type Department Care Team ([facility] Contact Info) Description 07/31/2024 5:00 PM CDT Appointment [facility] [address] [place] [address] Chandler Spivey PA [address] [place] [address] Maegan Duncan, Physical Therapist 08/02/2024 5:00 PM CDT Appointment [facility] [place] [address] [facility] [place] [address] Jonathan Cortez MD [address] [facility] [address] [address] -x0 (Work) Sarah Estrada, HOSTED SERVICES ANALYST 08/09/2024 5:00 PM CDT Appointment [facility] [address] [facility] [address] [place] [phone] Chandler Spivey PA [address] [place] [address] Maegan Duncan, Physical Therapist 08/30/2024 3:30 PM CDT Office Visit [facility] Internal Medicine [facility] [place] [facility] [address] [facility] [address] [address] Juventino Howe MD [address] [facility] [address] [place] [address] 10/31/2024 3:00 PM CDT Office Visit [facility] Pulmonology [facility] [address] [facility] [address] [place] [address] Everett Cam MD [address] [place] [address] 12/28/2024 2:45 PM BAGGAGE SCREENER Office Visit [facility] Endocrinology [address] [facility] [address] [place] [address] Sheldon Canales MD [address] [facility] [address] [place] [address] 02/26/2025 3:10 PM BAGGAGE SCREENER Office Visit [facility] Gastroenterology [facility] [address] [place] [address] Suzette Cody MD [address] [facility] [address] [place] [address] documented as of this encounter Visit Diagnoses Not on filedocumented in this encounter Additional Health Concerns Infection Onset Date Last Indicated Resolved Time R/O Respiratory 01/11/2023 01/11/2023 01/11/2023 7 :48 PM BAGGAGE SCREENER R/O Respiratory 02/19/2024 02/19/2024 02/19/2024 1 1:21 AM BAGGAGE SCREENER Influenza 02/19/2024 02/19/2024 02/26/2024 1:16 AM BAGGAGE SCREENER R/O Respiratory 03/13/2024 03/13/2024 03/13/2024 4 :20 PM BAGGAGE SCREENER Human Metapneumovirus 03/13/2024 03/13/20242024 1:16 AM BAGGAGE SCREENER R/O C. diff 03/13/2024 03/13/2024 03/14/2024 8:00 PM BAGGAGE SCREENER R/O C. diff 03/14/2024 03/14/2024 03/15/2024 6:17 PM BAGGAGE SCREENER documented as of this encounter Care Teams Drapery Hemmer Automatic Relationship Specialty Start Date End Date Juventino Howe MD [address] [facility] [address] [place] [phone] PCP - General Internal Medicine 11/04/11 documented as of this encounter
--- OUTSIDE RECORDS SUMMARY | 2024-07-26 18:07 | XMS_ITS | Encounter Summary ---
Author Organization [facility] Address [address] [place] [address] Care Team Providers Care Business Planner Name Role Phone Juventino Howe MD Primary Care Provider [phone] Encounter Details Date Type Department Care Team (Latest Contact Info) Description 02/27/2008 Outpatient Historical HIS [facility] TRESA Lee, Sulema Sherman MD NO ADDRESS ON FILE Lump or Mass in Breast Social History Tobacco Use Types Packs/Day Years Used Date Smoking Tobacco: Never Assessed Comments Unknown Sex and Gender Information Value Date Recorded Sex Assigned at Not on file Legal Sex Female 3:38 AM TESTS SUPERINTENDENT Gender Identity Not on file Sexual Orientation Not on file documented as of this encounter Plan of Treatment Upcoming Encounters Date Type Department Care Team (Late st Contact Info) Description 07/31/2024 5:00 PM CDT Appointment [facility] [address] [place] [address] Chandler Spivey PA [address] [place] [address] Maegan Duncan, Physical Therapist 08/02/2024 5:00 PM CDT Appointment [facility] [id number] [place] [address] Jonathan Cortez MD [address] [facility] [address] [address] -x0 (Work) Sarah Estrada, HEAD GOLF PROFESSIONAL 08/09/2024 5:00 PM CDT Appointment [facility] Dora [address] [place] [address] Chandler Spivey PA [address] [facility] [address] [place] [address] Maegan Duncan, Physical Therapist 08/30/2024 3:30 PM CDT Office Visit [facility] Internal Medicine Medical [place] A [facility] [address] [place] [address] Juventino Howe MD [address] [facility] [address] [place] [address] 10/31/2024 3:00 PM CDT Office Visit [facility] Pulmonology [facility] [address] [facility] [facility] [address] [place] [address] Everett Cam MD [address] [facility] [address] [place] [address] 12/28/2024 2:45 PM TESTS SUPERINTENDENT Office Visit [facility] Endocrinology [address] [facility] [address] [place] [address] Sheldon Canales MD [address] [facility] [address] [place] [address] 02/26/2025 3:10 PM TESTS SUPERINTENDENT Office Visit [facility] Gastroenterology [facility] [address] [place] [address] Suzette Cody MD [address] [facility] [address] [place] [address] documented as of this encounter Procedures Procedure Name Priority Date/Time Associated Diagnosis Comments PATHOLOGY Routine 02/27/2008 11:26 AM TESTS SUPERINTENDENT MAMMO DIAGNOSTIC UNI LEFT W OR WO CAD Routine 02/27/2008 10:21 AM TESTS SUPERINTENDENT XR CONSULTATION Routine 02/27/2008 10:21 AM TESTS SUPERINTENDENT US GUIDE NEEDLE PLACEMENT Routine 02/27/2008 10:21 AM TESTS SUPERINTENDENT documented in this encounter Results * PATHOLOGY (02/27/2008 11:26 AM TESTS SUPERINTENDENT) FINAL REPORT [facility] [address] [place], [place] [address] Patient: DUYEN OROSCO : 1960 Procedure Date: 02/27/2008 Accession Date: 02/27/2008 Case No: [id number] Ordering Dr: CHELSIE SANTAMARIA Case types AW, BW, FW, NW and SH are performed by [facility], [place], [place] SURGICAL PATHOLOGY & NON-GYNECOLOGIC CYTOPATHOLOGY REPORT DIAGNOSIS LEFT BREAST, ULTRASOUND-GUIDED 10-GAUGE CORE BIOPSY: - FIBROCYSTIC CHANGES. Specimen Description: Left breast mass in formalin at 10:10 a.m. Operative Procedure: Left breast ultrasound core biopsy, [id number] cores. Patient Information/Histo ry/Diagnosis: Left breast mass-probable FCC. Gross: Received in one container labeled Duyen Orosco., left breast mass is a 1.7-cm long x 0.4-cm in diameter, yellow tissue core. It is submitted in block A1. [facility] 02.27.2008 06:42 pm Microscopic: Sections are labeled [id number], Duyen Orosco. The core biopsy from the right breast displays benign characteristics, with a few dilated ducts and single grouping of reactive lymphoid cells within the stroma. COMMENT: Certain proliferative lesions identified in breast biopsies are associated with an increased relative risk for the development of invasive carcinoma. The relative risks are compared to the risks for women who have not had a biopsy. The relative risks associated with specific entities are listed below. 1. No increased risk: adenosis; duct ectasia; fibrosis; fibroadenoma (without complex features); mild hyperplasia without atypia; cysts; apocrine or squamous metaplasia; 2. Slightly increased risk (1.5- to 2.0-fold): fibroadenoma with complex features; moderate or florid hyperplasia without atypia; sclerosing adenosis; papilloma; 3. Moderately increased risk (4.0- to 5.0-fold): atypical lobular hyperplasia; atypical ductal hyperplasia; 4. Markedly increased risk (8.0- to 10.0-fold): ductal carcinoma in situ; atypical lobular hyperplasia or atypical ductal hyperplasia when there is also a family history of breast carcinoma affecting a first-degree relative. Reference: Arch Pathol Lab Med 1998;122:1053-105 5. BBK/KELLI 02.28.2008 10:41 am Staging Form: No. ELECTRONIC SIGNATURE FOR BENOIT BLACKMON M.D.- 02/28/08 11:40 am INTERFACE SYSTEM 02/27/2008 11:2 6 AM TESTS SUPERINTENDENT us Chelsie Howard MD PATHOLOGY/CYTOLOGY ORDERABL ES Final Result INTERFACE SYSTEM Refer to clinic/hospital department * MAMMO DIGITAL DIAG UNI LEFT (02/27/2008 10:21 AM TESTS SUPERINTENDENT) Anatomical Region Laterality Modality Breast Left Other 02/27/2008 10:2 1 AM TESTS SUPERINTENDENT Narrative 02/27/2008 4:21 PM TESTS SUPERINTENDENT [facility] [address] [place] [address] Admit Date: 02/27/2008 DEMONDSHADDUYEN Sex: F Admit Prov: SULEMA LEE Date: 1960 Primary Care Prov: CMRN: [id number] Room: [facility] SSN: [id number] IMAGING SERVICES Ordering Prov: SULEMA LEE Accession Number: [id number] Interpretation EXAM: ULTRASOUND-GUIDED CORE BIOPSY OF THE LEFT BREAST, TISSUE MARKER CLIP PLACEMENT, UNILATERAL DIGITAL MAMMOGRAM. Date: 02/27/2008 History: The patient has a mass at the 3:00 position of the left breast. An ultrasound-guided core biopsy has been recommended. Procedure and Findings: The risks and potential benefits of the procedure were discussed with the patient and written informed was obtained. After sterile preparation of the skin, 1% lidocaine was utilized for local anesthesia. A 10 gauge vacuum assisted core biopsy needle was advanced through the lesion of interest using sonographic guidance. A total of 1 tissue core was obtained throughout the lesion. A tissue marker clip was then placed at the biopsy site. Hemostasis was achieved. A sterile bandage and an ice pack were applied. A left breast full field digital diagnostic mammogram was performed postprocedure and this demonstrates that the tissue marker clip is in the expected position. The patient tolerated the procedure well and there was no evidence of immediate complication. The patient was given verbal as well as written postprocedural instructions prior to the release from the department. The tissue cores were submitted to surgical pathology in formalin for histologic analysis. Impression: Technically successful ultrasound guided core biopsy with tissue marker placement. Assessment BIRADS: Post procedure mammograms for marker placement Recommendation: No recommendation required Dictated by: CHELSIE SANTAMARIA Electronically signed by: CHELSIE SANTAMARIA 02/27/2008 16:19 Transcribed: 02/27/2008 11:38 DKT Procedure Note Chelsie Santamaria - 02/27/2008 [address] [place], [place] [address] Admit Date: 02/27/2008 DUYEN OROSCO Sex: F Admit Prov: SULEMA LEE Date: 1960 Primary Care Prov: CMRN: [id number] Room: [facility] SSN: [id number] IMAGING SERVICES Ordering Prov: SULEMA LEE Interpretation EXAM: ULTRASOUND-GUIDED CORE BIOPSY OF THE LEFT BREAST, TISSUE MARKERCLIP PLACEMENT, UNILATERAL DIGITAL MAMMOGRAM. Date: 02/27/2008 History: The patient has a mass at the 3:00 position of the leftbreast. An ultrasound-guided core biopsy has been recommended. Procedure and Findings: The risks and potential benefits of theprocedure were discussed with the patient and written informed was obtained.After sterile preparation of the skin, 1% lidocaine was utilized forlocal anesthesia. A 10 gauge vacuum assisted core biopsy needle wasadvanced through the lesion of interest using sonographic guidance. A total of1 tissue core was obtained throughout the lesion. A tissue marker clipwas then placed at the biopsy site. Hemostasis was achieved. A sterilebandage and an ice pack were applied. A left breast full field digital diagnostic mammogram was performed postprocedure and this demonstrates that the tissue marker clip is inthe expected position. The patient tolerated the procedure well and there was no evidenceof immediate complication. The patient was given verbal as well aswritten postprocedural instructions prior to the release from the department.The tissue cores were submitted to surgical pathology in formalin for histologic analysis. Impression: Technically successful ultrasound guided core biopsywith tissue marker placement. Assessment BIRADS: Post procedure mammograms for marker placement Recommendation: No recommendation required Dictated by: CHELSIE SANTAMARIA Electronically signed by: CHELSIE SANTAMARIA 02/27/2008 16:19 Transcribed: 02/27/2008 11:38 DKT Sulema Lee MD MAMMO ORDERABLES Final Resul t * XR CONSULTATION (02/27/2008 10:21 AM TESTS SUPERINTENDENT) 02/27/2008 10:2 1 AM TESTS SUPERINTENDENT Narrative INTERFACE SYSTEM - 02/29/2008 7:26 AM TESTS SUPERINTENDENT [address] [place], [place] [address] Admit Date: 02/27/2008 DUYEN OROSCO Sex: F Admit Prov: LISETH SULEMA Lane Date: 1960 Primary Care Prov: CMRN: [id number] Room: [facility] SSN: [id number] IMAGING SERVICES Ordering Prov: LISETH SULEMA Sherman Accession Number: [id number] Addendum Addendum: Pathology from the patient's recent left breast ultrasound guided core biopsy revealed fibrocystic change. This is benign and concordant. The patient will be informed of the above findings by Dr. Lee. The patient should return to annual mammography. Dictated by: CHELSIE SANTAMARIA Electronically signed by: CHELSIE SANTAMARIA 02/29/2008 07:26 Transcribed: 02/28/2008 23:23 SDJ Interpretation EXAM: ULTRASOUND-GUIDED CORE BIOPSY OF THE LEFT BREAST, TISSUE MARKER CLIP PLACEMENT, UNILATERAL DIGITAL MAMMOGRAM. Date: 02/27/2008 History: The patient has a mass at the 3:00 position of the left breast. An ultrasound-guided core biopsy has been recommended. Procedure and Findings: The risks and potential benefits of the procedure were discussed with the patient and written informed was obtained. After sterile preparation of the skin, 1% lidocaine was utilized for local anesthesia. A 10 gauge vacuum assisted core biopsy needle was advanced through the lesion of interest using sonographic guidance. A total of 1 tissue core was obtained throughout the lesion. A tissue marker clip was then placed at the biopsy site. Hemostasis was achieved. A sterile bandage and an ice pack were applied. A left breast full field digital diagnostic mammogram was performed postprocedure and this demonstrates that the tissue marker clip is in the expected position. The patient tolerated the procedure well and there was no evidence of immediate complication. The patient was given verbal as well as written postprocedural instructions prior to the release from the department. The tissue cores were submitted to surgical pathology in formalin for histologic analysis. Impression: Technically successful ultrasound guided core biopsy with tissue marker placement. Report revised on 02/29/2008 7:26:11 AM by CHELSIE SANTAMARIA Dictated by: CHELSIE SANTAMARIA Electronically signed by: CHELSIE SANTAMARIA 02/27/2008 16:19 Transcribed: 02/27/2008 11:38 DKT Procedure Note Chelsie Santamaria - 02/29/[address] [address] Admit Date: 02/27/2008 DUYEN OROSCO Sex: F Admit Prov: SULEMA LEE Date: 1960 Primary Care Prov: CMRN: [id number] Room: [facility] SSN: [id number] IMAGING SERVICES Ordering Prov: SULEMA LEE Addendum Addendum: Pathology from the patient's recent left breast ultrasound guidedcore biopsy revealed fibrocystic change. This is benign and concordant.The patient will be informed of the above findings by Dr. Lee. Thepatient should return to annual mammography. Dictated by: CHELSIE SANTAMARIA Electronically signed by: CHELSIE SANTAMARIA 02/29/2008 07:26 Transcribed: 02/28/2008 23:23 SDJ Interpretation EXAM: ULTRASOUND-GUIDED CORE BIOPSY OF THE LEFT BREAST, TISSUE MARKERCLIP PLACEMENT, UNILATERAL DIGITAL MAMMOGRAM. Date: 02/27/2008 History: The patient has a mass at the 3:00 position of the leftbreast. An ultrasound-guided core biopsy has been recommended. Procedure and Findings: The risks and potential benefits of theprocedure were discussed with the patient and written informed was obtained.After sterile preparation of the skin, 1% lidocaine was utilized forlocal anesthesia. A 10 gauge vacuum assisted core biopsy needle wasadvanced through the lesion of interest using sonographic guidance. A total of1 tissue core was obtained throughout the lesion. A tissue marker clipwas then placed at the biopsy site. Hemostasis was achieved. A sterilebandage and an ice pack were applied. A left breast full field digital diagnostic mammogram was performed postprocedure and this demonstrates that the tissue marker clip is inthe expected position. The patient tolerated the procedure well and there was no evidenceof immediate complication. The patient was given verbal as well aswritten postprocedural instructions prior to the release from the department.The tissue cores were submitted to surgical pathology in formalin for histologic analysis. Impression: Technically successful ultrasound guided core biopsywith tissue marker placement. Report revised on 02/29/2008 7:26:11 AM by CHELSIE SANTAMARIA Dictated by: CHELSIE SANTAMARIA Electronically signed by: CHELSIE SANTAMARIA 02/27/2008 16:19 Transcribed: 02/27/2008 11:38 DKT us Sulema Lee MD DIAGNOSTIC IMAGING ORDERABLE S Edited INTERFACE SYSTEM Refer to clinic/hospital department * US GUIDE NEEDLE PLACEMENT (02/27/2008 10:21 AM TESTS SUPERINTENDENT) Anatomical Region Laterality Modality Other 02/27/2008 10:2 1 AM TESTS SUPERINTENDENT Narrative 02/27/2008 4:21 PM TESTS SUPERINTENDENT [facility] [address] [place], [place] [address] Admit Date: 02/27/2008 DUYEN OROSCO Sex: F Admit Prov: SULEMA LEE Date: 1960 Primary Care Prov: CMRN: [id number] [facility] [id number] [facility]ING [facility] Ordering Prov: SULEMA LEE Accession Number: [id number] Interpretation EXAM: ULTRASOUND-GUIDED CORE BIOPSY OF THE LEFT BREAST, TISSUE MARKER CLIP PLACEMENT, UNILATERAL DIGITAL MAMMOGRAM. Date: 02/27/2008 History: The patient has a mass at the 3:00 position of the left breast. An ultrasound-guided core biopsy has been recommended. Procedure and Findings: The risks and potential benefits of the procedure were discussed with the patient and written informed was obtained. After sterile preparation of the skin, 1% lidocaine was utilized for local anesthesia. A 10 gauge vacuum assisted core biopsy needle was advanced through the lesion of interest using sonographic guidance. A total of 1 tissue core was obtained throughout the lesion. A tissue marker clip was then placed at the biopsy site. Hemostasis was achieved. A sterile bandage and an ice pack were applied. A left breast full field digital diagnostic mammogram was performed postprocedure and this demonstrates that the tissue marker clip is in the expected position. The patient tolerated the procedure well and there was no evidence of immediate complication. The patient was given verbal as well as written postprocedural instructions prior to the release from the department. The tissue cores were submitted to surgical pathology in formalin for histologic analysis. Impression: Technically successful ultrasound guided core biopsy with tissue marker placement. Dictated by: CHELSIE SANTAMARIA Electronically signed by: CHELSIE SANTAMARIA 02/27/2008 16:19 Transcribed: 02/27/2008 11:38 DKT Procedure Note Chelsie Santamaria - 02/27/[address] [address] Admit Date: 02/27/2008 DUYEN OROSCO Sex: F Admit Prov: SULEMA LEE Date: 1960 Primary Care Prov: CMRN: [id number] [facility] SS[facility]: [id number] IMAGING SERVICES Ordering Prov: SULEMA LEE Interpretation EXAM: ULTRASOUND-GUIDED CORE BIOPSY OF THE LEFT BREAST, TISSUE MARKERCLIP PLACEMENT, UNILATERAL DIGITAL MAMMOGRAM. Date: 02/27/2008 History: The patient has a mass at the 3:00 position of the leftbreast. An ultrasound-guided core biopsy has been recommended. Procedure and Findings: The risks and potential benefits of theprocedure were discussed with the patient and written informed was obtained.After sterile preparation of the skin, 1% lidocaine was utilized forlocal anesthesia. A 10 gauge vacuum assisted core biopsy needle wasadvanced through the lesion of interest using sonographic guidance. A total of1 tissue core was obtained throughout the lesion. A tissue marker clipwas then placed at the biopsy site. Hemostasis was achieved. A sterilebandage and an ice pack were applied. A left breast full field digital diagnostic mammogram was performed postprocedure and this demonstrates that the tissue marker clip is inthe expected position. The patient tolerated the procedure well and there was no evidenceof immediate complication. The patient was given verbal as well aswritten postprocedural instructions prior to the release from the department.The tissue cores were submitted to surgical pathology in formalin for histologic analysis. Impression: Technically successful ultrasound guided core biopsywith tissue marker placement. Dictated by: CHELSIE SANTAMARIA Electronically signed by: CHELSIE SANTAMARIA 02/27/2008 16:19 Transcribed: 02/27/2008 11:38 DKT Sulema Lee MD ORDERABLES Final Result documented in this encounter Visit Diagnoses Diagnosis Lump or mass in breast documented in this encounter Additional Health Concerns Infection Onset Date Last Indicated Resolved Time R/O Respiratory 01/11/2023 01/11/2023 01/11/2023 7 :48 PM TESTS SUPERINTENDENT R/O Respiratory 02/19/2024 02/19/2024 02/19/2024 1 1:21 AM TESTS SUPERINTENDENT Influenza 02/19/2024 02/19/2024 02/26/2024 1:16 AM TESTS SUPERINTENDENT R/O Respiratory 03/13/2024 03/13/2024 03/13/2024 4 :20 PM TESTS SUPERINTENDENT Human Metapneumovirus 03/13/2024 03/13/20242024 1:16 AM TESTS SUPERINTENDENT R/O C. diff 03/13/2024 03/13/2024 03/14/2024 8:00 PM TESTS SUPERINTENDENT R/O C. diff 03/14/2024 03/14/2024 03/15/2024 6:17 PM TESTS SUPERINTENDENT documented as of this encounter Care Teams Business Planner Relationship Specialty Start Date End Date Juventino Howe MD [address] [facility] [address] [place] [address] PCP - General Internal Medicine 11/04/11 documented as of this encounter
--- OUTSIDE RECORDS SUMMARY | 2024-07-26 18:07 | XMS_ITS | Encounter Summary ---
Author Organization [facility] Address [address] [place] [address] Care Team Providers Care Disposal Plant Operator Name Role Phone Juventino Howe MD Primary Care Provider [phone] Encounter Details Date Type Department Care Team (Latest Contact Info) Description 01/23/2008 Outpatient Historical HIS [facility] TRESA Disla, Ehsan Alonzo MD NO ADDRESS ON FILE Unspecified Retention of Urine Social History Tobacco Use Types Packs/Day Years Used Date Smoking Tobacco: Never Assessed Comments Unknown Sex and Gender Information Value Date Recorded Sex Assigned at Not on file Legal Sex Female 3:38 AM POLO COACH Gender Identity Not on file Sexual Orientation Not on file documented as of this encounter Plan of Treatment Upcoming Encounters Date Type Department Care Team (Late st Contact Info) Description 07/31/2024 5:00 PM CDT Appointment [facility] Therapy Services [address] [place] [address] Chandler Spivey PA [address] [place] [address] Maegan Duncan, Physical Therapist 08/02/2024 5:00 PM CDT Appointment [facility] Neuro Rehabilitation [address] [place] [address] Jonathan Cortez MD [address] [facility] [address] [address] -x0 (Work) Sarah Estrada, CORPORATE SECURITIES RESEARCH ANALYST 08/09/2024 5:00 PM CDT Appointment [facility] [place] [address] [place] [address] Chandler Spivey PA [address] [facility] [address] [place] [address] Maegan Duncan, Physical Therapist 08/30/2024 3:30 PM CDT Office Visit [facility] Internal Medicine Medical [place] [facility] [address] [facility] [address] [address] Juventino Howe MD [address] [facility] [address] [place] [address] 10/31/2024 3:00 PM CDT Office Visit [facility] Pulmonology [facility] [address] [facility] [address] [place] [address] Everett Cam MD [address] [facility] [address] [place] [address] 12/28/2024 2:45 PM POLO COACH Office Visit [facility] Endocrinology [address] [facility] [address] [place] [address] Sheldon Canales MD [address] [facility] [address] [place] [address] 02/26/2025 3:10 PM POLO COACH Office Visit [facility] Gastroenterology [facility] [address] [facility] [address] [place] [address] Suzette Cody MD [address] [facility] [address] [place] [address] documented as of this encounter Procedures Procedure Name Priority Date/Time Associated Diagnosis Comments BASIC METABOLIC PANEL Routine 01/23/2008 2:22 PM POLO COACH documented in this encounter Results * BASIC METABOLIC PANEL (01/23/2008 2:22 PM POLO COACH) CHLORIDE 103 96 - 108 mmol/L [facility] GLUCOSE 94 65 - 99 mg/dL [facility] SODIUM 141 135 - 145 mmol/L [facility] CALCIUM 9.7 8.6 - 10.2 mg/dL [facility] CO2 24 22 - 30 mmol/L [facility] CREATININE 0.68 0.51 - 0.95 mg/dL [facility] POTASSIUM 3.8 3.5 - 4.9 mmol/L [facility] BUN 10 6 - 20 mg/dL [facility] GFR, >60 >=60 mL/min/1.7 sq meter [facility] GFR >60 >=60 mL/min/1.7 sq meter [facility] Comment: Modification of Diet in Renal Disease (MDRD) study formula. Estimated GFR rate interpretative information for both Americans and non- Americans is available on the [facility] Intranet at: [email or web address] Select: Lab Policies and Procedures Select: Reference Ranges - GFR Blood specimen (specimen) 01/23/2008 2:22 PM POLO COACH 01/23/2008 2:38 PM POLO COACH Ehsan Disla MD CHEMISTRY ORDERABLES Edite d INTERFACE SYSTEM Refer to clinic/hospital department [facility] CLIA# [id number] [address] [place] [address] documented in this encounter Visit Diagnoses Diagnosis Retention of urine, unspecified documented in this encounter Additional Health Concerns Infection Onset Date Last Indicated Resolved Time R/O Respiratory 01/11/2023 01/11/2023 01/11/2023 7 :48 PM POLO COACH R/O Respiratory 02/19/2024 02/19/2024 02/19/2024 1 1:21 AM POLO COACH Influenza 02/19/2024 02/19/2024 02/26/2024 1:16 AM POLO COACH R/O Respiratory 03/13/2024 03/13/2024 03/13/2024 4 :20 PM POLO COACH Human Metapneumovirus 03/13/2024 03/13/20242024 1:16 AM POLO COACH R/O C. diff 03/13/2024 03/13/2024 03/14/2024 8:00 PM POLO COACH R/O C. diff 03/14/2024 03/14/2024 03/15/2024 6:17 PM POLO COACH documented as of this encounter Care Teams Disposal Plant Operator Relationship Specialty Start Date End Date Juventino Howe MD [address] [facility] [address] [place] [address] PCP - General Internal Medicine 11/04/11 documented as of this encounter
--- OUTSIDE RECORDS SUMMARY | 2024-07-26 18:07 | XMS_ITS | Encounter Summary ---
Author Organization [facility] Address [address] [place] [address] Care Team Providers Care Director Transportation Name Role Phone Juventino Howe MD Primary Care Provider [phone] Encounter Details Date Type Department Care Team (Latest Contact Info) Description 09/12/2008 Outpatient Historical HIS [facility] TRESA [place], Sulema Sherman MD NO ADDRESS ON FILE Lump or Mass in Breast Social History Tobacco Use Types Packs/Day Years Used Date Smoking Tobacco: Never Alcohol Use Standard Drinks/Week Comments No 0 (1 standard drink = 0.6 oz pur e alcohol) Comments No Sex and Gender Information Value Date Recorded Sex Assigned at Not on file Legal Sex Female 3:38 AM POWER MARKETER Gender Identity Not on file Sexual Orientation Not on file documented as of this encounter Plan of Treatment Upcoming Encounters Date Type Department Care Team (Late st Contact Info) Description 07/31/2024 5:00 PM CDT Appointment [facility] Therapy Services [address] [place] [address] Chandler Spivey PA [address] [place] [address] Maegan Duncan, Physical Therapist 08/02/2024 5:00 PM CDT Appointment [facility] Neuro Rehabilitation [facility] [address] [facility] [place] [address] Jonathan Cortez MD [address] [facility] [address] [address]x0 (Work) Sarah Estrada, HOGSHEAD FILLER 08/09/2024 5:00 PM CDT Appointment [facility] [address] [place] [address] Chandler Spivey PA [address] [facility] [address] [place] [address] Maegan Duncan, Physical Therapist 08/30/2024 3:30 PM CDT Office Visit [facility] Internal Medicine Medical [place] A [address] [place] [address] Juventino Howe MD [address] [facility] [address] [place] [address] 10/31/2024 3:00 PM CDT Office Visit [facility]3] Pulmonology [facility] [address] [facility] [address] [place] [address] Everett Cam MD [address] [facility] [address] [place] [address] 12/28/2024 2:45 PM POWER MARKETER Office Visit [facility]3] Endocrinology [address] [facility] [address] [place] [address] Sheldon Canales MD [address] [facility] [address] [place] [address] 02/26/2025 3:10 PM POWER MARKETER Office Visit [facility] Gastroenterology [place] [address] [facility] [address] [address] [place] [address] Suzette Cody MD [address] [place] [address] documented as of this encounter Procedures Procedure Name Priority Date/Time Associated Diagnosis Comments US BREAST UNI LEFT COMPLETE Routine 09/12/2008 10:04 AM CDT documented in this encounter Results * US BREAST UNILATERAL LEFT (09/12/2008 10:04 AM CDT) Anatomical Region Laterality Modality Breast Left Other 09/12/2008 10:0 4 AM CDT Narrative 09/13/2008 8:31 AM CDT [address] [address] [place], [place] [address] Admit Date: 09/12/2008 DUYEN OROSCO Sex: F Admit Prov: SULEMA LEE Date: 1960 Primary Care Prov: CMRN: [id number] Room: JANE N: [id number] IMAGING SERVICES Ordering Prov: LISETHSULEMA Accession Number: [id number] Interpretation LEFT BREAST ULTRASOUND 09/12/2008 HISTORY: The patient had a benign biopsy of a mass in the upper-outer quadrant of the left breast in February. This is a six-month followup. FINDINGS: An ultrasound of the upper-outer of the left breast was performed. This demonstrates a bilobed parallel, smoothly marginated mass which measures in total approximately 9 x 7 mm. This does contain some internal echoes. This most likely represents a benign finding. This patient should return to annual mammography. OVERALL ASSESSMENT: BIRADS category 2 - Benign findings. IMPRESSION: Annual mammography is recommended. Dictated by: CHELSIE SANTAMARIA Electronically signed by: CHELSIE SANTAMARIA 09/13/2008 08:31 Transcribed: 09/12/2008 15:03 [facility] Procedure Note Chelsie Santamaria - 09/13/2008 [address] [place], [place] [address] Admit Date: 09/12/2008 DUYEN OROSCO Sex: F Admit Prov: SULEMA [place]EE Date: 1960 Primary Care Prov: CMRN: [id number] Room: JANE SSN: [id number] IMAGING SERVICES Ordering Prov: SULEMA LEE Lane Interpretation LEFT BREAST ULTRASOUND 09/12/2008 HISTORY: The patient had a benign biopsy of a mass in theupper-outer quadrant of the left breast in February. This is a six-monthfollowup. FINDINGS: An ultrasound of the upper-outer of the left breast was performed. This demonstrates a bilobed parallel, smoothly marginatedmass which measures in total approximately 9 x 7 mm. This does containsome internal echoes. This most likely represents a benign finding. Thispatient should return to annual mammography. OVERALL ASSESSMENT: BIRADS category 2 - Benign findings. IMPRESSION: Annual mammography is recommended. Dictated by: CHELSIE SANTAMARIA Electronically signed by: CHELSIE SANTAMARIA 09/13/2008 08:31 Transcribed: 09/12/2008 15:03 KIMBERLYJ Sulema [place] MD ORDERABLES Final Result documented in this encounter Visit Diagnoses Diagnosis Lump or mass in breast documented in this encounter Additional Health Concerns Infection Onset Date Last Indicated Resolved Time R/O Respiratory 01/11/2023 01/11/2023 01/11/2023 7 :48 PM POWER MARKETER R/O Respiratory 02/19/2024 02/19/2024 02/19/2024 1 1:21 AM POWER MARKETER Influenza 02/19/2024 02/19/2024 02/26/2024 1:16 AM POWER MARKETER R/O Respiratory 03/13/2024 03/13/2024 03/13/2024 4 :20 PM POWER MARKETER Human Metapneumovirus 03/13/2024 03/13/20242024 1:16 AM POWER MARKETER R/O C. diff 03/13/2024 03/13/2024 03/14/2024 8:00 PM POWER MARKETER R/O C. diff 03/14/2024 03/14/2024 03/15/2024 6:17 PM POWER MARKETER documented as of this encounter Care Teams Director Transportation Relationship Specialty Start Date End Date Juventino Howe MD [address] [facility] [address] [place] [address] PCP - General Internal Medicine 11/04/11 documented as of this encounter
--- OUTSIDE RECORDS SUMMARY | 2024-07-26 18:07 | XMS_ITS | Encounter Summary ---
Author Organization [facility] Address [address] [place] [address] Care Team Providers Care Satellite Project Site Monitor Name Role Phone Juventino Howe MD Primary Care Provider [phone] Encounter Details Date Type Department Care Team (Latest Contact Info) Description 06/06/2008 Outpatient Historical HIS [facility] Conversion, History Unspecified Disorder of Thyroid Social History Tobacco Use Types Packs/Day Years Used Date Smoking Tobacco: Never Assessed Comments Unknown Sex and Gender Information Value Date Recorded Sex Assigned at Not on file Legal Sex Female 3:38 AM VACUUM FORMING 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 Gender Identity Not on file Sexual Orientation Not on file documented as of this encounter Plan of Treatment Upcoming Encounters Date Type Department Care Team (Late st Contact Info) Description 07/31/2024 5:00 PM CDT Appointment [facility] [address] [place] [address] Chandler Spivey PA [address] [place] [address] Maegan Duncan, Physical Therapist 08/02/2024 5:00 PM CDT Appointment [facility] Neuro Rehabilitation [address] [place] [address] Jonathan Cortez MD [address] [facility] [address] [place] [address] -x0 (Work) Sarah Estrada, OBSTETRICS NURSE 08/09/2024 5:00 PM CDT Appointment [facility] [place] [address] [place] [address] Chandler Spivey PA [address] [facility] [address] [place] [address] Maegan Duncan, Physical Therapist 08/30/2024 3:30 PM CDT Office Visit [facility] Internal Medicine Medical [place] A [facility] [address] [facility] [facility] [address] [address] Juventino Howe MD [address] [place] [address] 10/31/2024 3:00 PM CDT Office Visit [facility] Pulmonology [facility] [address] [facility] [address] [place] [address] Everett Cam MD [address] [facility] [facility] [address] [facility] [address] [place] [address] 12/28/2024 2:45 PM VACUUM FORMING 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 Office Visit [facility] Endocrinology [address] [facility] [address] [place] [address] Sheldon Canales MD [address] [facility] [address] [place] [address] 02/26/2025 3:10 PM VACUUM FORMING 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 Office Visit [facility] Gastroenterology [facility] [address] [facility] [address] [place] [address] Suzette Cody MD [address] [facility] [address] [place] [address] documented as of this encounter Procedures Procedure Name Priority Date/Time Associated Diagnosis Comments NM THYROID 24 HR UPTAKE AND SCAN Timed Study 06/06/2008 3:17 PM CDT documented in this encounter Results * NM THYROID 24 HR UPTAKE AND SCAN (06/06/2008 3:17 PM CDT) Anatomical Region Laterality Modality Neck Other 06/06/2008 3:17 PM CDT Narrative 06/07/2008 8:27 AM CDT [address] [place], [place] [address] Admit Date: 06/06/2008 EPIFANIO OROSCO Sex: F Admit Prov: DOCTOR , NOT ONSTAFF Date: 1960 Primary Care Prov: CMRN: [id number] Room: [facility] SSN: [id number] IMAGING SERVICES Ordering Prov: N/A Accession Number: [id number] Interpretation THYROID SCAN THYROID UPTAKE, SINGLE 06/06/2008 History: 47-year-old with nodular mass, right lobe of thyroid, found on physical exam. Uptakes: 5 hour RAIU: 15 % (5 hour normal: 10.3 +/- 3.3%) Scan: The thyroid appears in normal anatomic position and is of relatively normal size. Right lobe is slightly larger than the left. There is an area of diminished activity in the inferior pole of the right lobe of the thyroid appearing to correspond to the palpable abnormality on palpation. The remainder of the thyroid appears intact. IMPRESSION: Solitary cold nodule, inferior pole of right lobe of thyroid, corresponding to palpable nodule. Comment: While these nodules typically represent benign adenomas, thyroid neoplasia cannot be excluded. Fine needle aspiration and biopsy may be indicated. Dose: 0.2 - 0.3 mCi I-123 p.o. . Dictated by: ADARSH DURAN 06/06/2008 15:39 Electronically signed by: ADARSH DURAN 06/07/2008 08:26 Transcribed: 06/06/2008 18:28 [facility] Procedure Note Adarsh Duran MD - 06/07/2008 [address] [address] [place], [place] [address] Admit Date: 06/06/2008 EPIFANIO OROSCO Sex: F Admit Prov: DOCTOR , NOT ONSTAFF Date: 1960 Primary Care Prov: CMRN: [id number] Room: [facility] SSN: [id number] IMAGING SERVICES Ordering Prov: N/A Interpretation THYROID SCAN THYROID UPTAKE, SINGLE 06/06/2008 History: 47-year-old with nodular mass, right lobe of thyroid, foundon physical exam. Uptakes: 5 hour RAIU: 15 % (5 hour normal: 10.3 +/- 3.3%) Scan: The thyroid appears in normal anatomic position and is ofrelatively normal size. Right lobe is slightly larger than the left. There is anarea of diminished activity in the inferior pole of the right lobe ofthe thyroid appearing to correspond to the palpable abnormality onpalpation. The remainder of the thyroid appears intact. IMPRESSION: Solitary cold nodule, inferior pole of right lobe of thyroid,corresponding to palpable nodule. Comment: While these nodules typically represent benign adenomas,thyroid neoplasia cannot be excluded. Fine needle aspiration and biopsy maybe indicated. Dose: 0.2 - 0.3 mCi I-123 p.o. . Dictated by: ADARSH DURAN 06/06/2008 15:39 Electronically signed by: ADARSH DURAN 06/07/2008 08:26 Transcribed: 06/06/2008 18:28 SJ us History Conversion NM ORDERABLES Final Result documented in this encounter Visit Diagnoses Diagnosis Unspecified disorder of thyroid documented in this encounter Additional Health Concerns Infection Onset Date Last Indicated Resolved Time R/O Respiratory 01/11/2023 01/11/2023 01/11/2023 7 :48 PM VACUUM FORMING 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 R/O Respiratory 02/19/2024 02/19/2024 02/19/2024 1 1:21 AM VACUUM FORMING 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 Influenza 02/19/2024 02/19/2024 02/26/2024 1:16 AM VACUUM FORMING 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 R/O Respiratory 03/13/2024 03/13/2024 03/13/2024 4 :20 PM VACUUM FORMING 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 Human Metapneumovirus 03/13/2024 03/13/20242024 1:16 AM VACUUM FORMING 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 R/O C. diff 03/13/2024 03/13/2024 03/14/2024 8:00 PM VACUUM FORMING 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 R/O C. diff 03/14/2024 03/14/2024 03/15/2024 6:17 PM VACUUM FORMING 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 documented as of this encounter Care Teams Satellite Project Site Monitor Relationship Specialty Start Date End Date Juventino Howe MD [address] [facility] [address] [place] [address] PCP - General Internal Medicine 11/04/11 documented as of this encounter
--- OUTSIDE RECORDS SUMMARY | 2024-07-26 18:07 | XMS_ITS | Encounter Summary ---
Author Organization [facility] Address [address] [place] [address] Care Team Providers Care Journeyman Molder Name Role Phone Juventino Howe MD Primary Care Provider Encounter Details Date Type Department Care Team (Late st Contact Info) Description 02/04/2008 Outpatient Historical [facility] Lynne Escobar MD [address] [place] [address] Social History Tobacco Use Types Packs/Day Years Used Date Smoking Tobacco: Never Assessed Comments Unknown Sex and Gender Information Value Date Recorded Sex Assigned at Not on file Legal Sex Female 3:38 AM RECORDS MANAGEMENT ANALYST Gender Identity Not on file Sexual Orientation Not on file documented as of this encounter Plan of Treatment Upcoming Encounters Date Type Department Care Team (Late st Contact Info) Description 07/31/2024 5:00 PM CDT Appointment [facility] Therapy [address] [address] Chandler Spivey PA [address] [facility] [address] [place] [address] Maegan Duncan, Physical Therapist 08/02/2024 5:00 PM CDT Appointment [facility] Neuro Rehabilitation [facility] [address] [facility] [place] [address] Jonathan Cortez MD [address] [facility] [address] [address] (Work) Sarah Estrada, RYAN 08/09/2024 5:00 PM CDT Appointment [facility] [place] [address] [place] [address] Chandler Spivey PA [address] [facility] [address] [place] [address] Maegan Duncan, Physical Therapist 08/30/2024 3:30 PM CDT Office Visit [facility] Internal Medicine Medical [place] A [address] [facility] [address] [address] Juventino Howe MD [address] [facility] [address] [place] [address] 10/31/2024 3:00 PM CDT Office Visit [facility] Pulmonology [facility] [address] [facility] [address] [place] [address] Everett Cam MD [address] [facility] [address] [place] [address] 12/28/2024 2:45 PM RECORDS MANAGEMENT ANALYST Office Visit [facility] Endocrinology [address] [facility] [address] [place] [address] Sheldon Canales MD [address] [facility] [address] [place] [address] 02/26/2025 3:10 PM RECORDS MANAGEMENT ANALYST Office Visit [facility] Gastroenterology [facility] [address] [facility] [address] [place] [address] Suzette Cody MD [address] [facility] [address] [place] [address] documented as of this encounter Visit Diagnoses Not on filedocumented in this encounter Additional Health Concerns Infection Onset Date Last Indicated Resolved Time R/O Respiratory 01/11/2023 01/11/2023 01/11/2023 7 :48 PM RECORDS MANAGEMENT ANALYST R/O Respiratory 02/19/2024 02/19/2024 02/19/2024 1 1:21 AM RECORDS MANAGEMENT ANALYST Influenza 02/19/2024 02/19/2024 02/26/2024 1:16 AM RECORDS MANAGEMENT ANALYST R/O Respiratory 03/13/2024 03/13/2024 03/13/2024 4 :20 PM RECORDS MANAGEMENT ANALYST Human Metapneumovirus 03/13/2024 03/13/20242024 1:16 AM RECORDS MANAGEMENT ANALYST R/O C. diff 03/13/2024 03/13/2024 03/14/2024 8:00 PM RECORDS MANAGEMENT ANALYST R/O C. diff 03/14/2024 03/14/2024 03/15/2024 6:17 PM RECORDS MANAGEMENT ANALYST documented as of this encounter Care Teams Journeyman Molder Relationship Specialty Start Date End Date Juventino Howe MD [address] [facility] [address] [place] [address] PCP - General Internal Medicine 11/04/11 documented as of this encounter
--- OUTSIDE RECORDS SUMMARY | 2024-07-26 18:07 | XMS_ITS | Encounter Summary ---
Author Organization [facility] Address [address] [place] [address] Care Team Providers Care Fuel Tank Sealer And Tester Name Role Phone Juventino Howe MD Primary Care Provider [phone] Encounter Details Date Type Department Care Team (Late st Contact Info) Description 05/21/2006 Outpatient Historical [facility] Tex Spencer MD [address] 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) Social History Tobacco Use Types Packs/Day Years Used Date Smoking Tobacco: Never Assessed Comments Unknown Sex and Gender Information Value Date Recorded Sex Assigned at Not on file Legal Sex Female 3:38 AM SPAR CAP BEVELER Gender Identity Not on file Sexual Orientation Not on file documented as of this encounter Plan of Treatment Upcoming Encounters Date Type Department Care Team (Late Contact Info) Description 07/31/2024 5:00 PM CDT Appointment [facility] Therapy Services [place] [id number] [facility] [address] [place] [address] Chandler Spivey PA [address] [facility] [address] [place] [address] Maegan Duncan, Physical Therapist 08/02/2024 5:00 PM CDT Appointment [facility] Neuro Rehabilitation [facility] [address] [facility] [place] [address] Jonathan Cortez MD [address] [facility] [address] [address] -x0 (Work) Sarah Estrada, RYAN 08/09/2024 5:00 PM CDT Appointment [facility] [address] [place] [address] Chandler Spivey PA [address] [facility] [address] [place] [address] Maegan Duncan, Physical Therapist 08/30/2024 3:30 PM CDT [facility] Internal Medicine Medical [place] [address] [place] [address] Juventino Howe MD [address] [facility] [address] [place] [address] 10/31/2024 3:00 PM CDT [facility] Pul[facility] [address] [place] [address] Everett Cam MD [address] [place] [address] 12/28/2024 2:45 PM SPAR CAP BEVELER Office Visit [facility] Endocrinology [address] [facility] [address] [place] [address] Sheldon Canales MD [address] [facility] [address] [place] [address] 02/26/2025 3:10 PM SPAR CAP BEVELER Office Visit [facility] Gastroenterology [facility] [address] [place] [place] [address] Suzette Cody MD [address] [facility] [place] [address] [place] [address] documented as of this encounter Procedures Procedure Name Priority Date/Time Associated Diagnosis Comments CBC WITH DIFFERENTIAL Routine 05/22/2006 12:24 AM CDT CBC WITH DIFFERENTIAL Routine 05/22/2006 12:24 AM CDT C-REACTIVE PROTEIN Routine 05/22/2006 12 :24 AM CDT COMPREHENSIVE METABOLIC PANEL Routine 05/22/2006 12:24 AM CDT documented in this encounter Results * (ABNORMAL) CBC WITH DIFFERENTIAL (05/22/2006 12:24 AM CDT) NEUTROPHILS 54 45 - 70 % INTERFAC E SYSTEM LYMPHOCYTES 31 16 - 45 % INTERFAC E SYSTEM MONOCYTES 7 3 - 13 % INTERFACE SYSTEM EOSINOPHILS 8(H) 0 - 7 % INTERFAC E SYSTEM BASOPHILS 1 0 - 2 % INTERFACE SYSTEM NEUTROPHIL ABSOLUTE 4.72 1.90 - 7.00 K/uL INTERFACE SYSTEM LYMPHOCYTE ABSOLUTE 2.77 0.70 - 4.50 K/uL INTERFACE SYSTEM MONOCYTE ABSOLUTE 0.60 0.10 - 1.30 K/uL INTERFACE SYSTEM EOSINOPHIL ABSOLUTE 0.67 0.00 - 0.70 K/uL INTERFACE SYSTEM BASOPHILS ABSOLUTE 0.05 0.00 - 0.20 K/uL INTERFACE SYSTEM 05/22/2006 12:2 4 AM CDT us Tex Spencer MD HEMATOLOGY ORDERABLES Edited INTERFACE SYSTEM Refer to clinic/hospital department * (ABNORMAL) CBC WITH DIFFERENTIAL (05/22/2006 12:24 AM CDT) WBC 8.8 4.0 - 9.8 K/uL INTERFACE SYSTEM RBC 4.05 3.90 - 4.90 M/uL INTERFACE SYSTEM HEMOGLOBIN 13.6 11.8 - 14.8 g/dL INTERFACE SYSTEM HEMATOCRIT 37.2 35.5 - 44.0 % INTERFACE SYSTEM MCV 91.9 82.0 - 99.0 fL INTERFACE SYSTEM MCH 33.6(H) 27.2 - 32.6 pg INTERFACE SYSTEM MCHC 36.6(H) 31.5 - 35.5 % INTERFACE SYSTEM RDW 12.6 11.5 - 14.5 % INTERFACE SYSTEM RDW-STDEV 42.3 37.1 - 48.7 fL INTERFACE SYSTEM PLATELETS 247 140 - 350 K/uL INTERFACE SYSTEM MPV 10.6 9.3 - 12.4 fL INTERFACE SYSTEM 05/22/2006 12:2 4 AM CDT Tex Spencer MD HEMATOLOGY ORDERABLES Edited Performing Organization Address [facility] de Phone Number INTERFACE SYSTEM Refer to clinic/hospital department * C-REACTIVE PROTEIN (05/22/2006 12:24 AM CDT) CRP <0.2 0.0 - 0.8 mg/dL INTERFACE SYSTEM 05/22/2006 12:2 4 AM CDT Tex Spencer MD CHEMISTRY ORDERABLES Edited Performing Organization Address [facility] de Phone Number INTERFACE SYSTEM Refer to clinic/hospital department * (ABNORMAL) COMPREHENSIVE METABOLIC PANEL (05/22/2006 12:24 AM CDT) GLUCOSE 88 65 - 99 mg/dL INTERFACE SYSTEM CREATININE 1.07(H) 0.51 - 0.95 mg/dL INTERFACE SYSTEM CALCIUM 8.9 8.4 - 10.2 mg/dL INTERFACE SYSTEM ALKALINE PHOSPHATASE 110(H) 35 - 104 U/L INTERFACE SYSTEM AST 20 12 - 32 U/L INTERFACE SYSTEM ALT 27 0 - 31 U/L INTERFACE SYSTEM TOTAL PROTEIN 6.8 6.3 - 8.6 g/dL INTERFACE SYSTEM ALBUMIN 3.9 3.4 - 4.8 g/dL INTERFACE SYSTEM BILIRUBIN TOTAL 0.2 0.2 - 1.0 mg/dL INTERFACE SYSTEM BUN 12 6 - 20 mg/dL INTERFACE SYSTEM SODIUM 144 135 - 145 mmol/L INTERFACE SYSTEM POTASSIUM 4.5 3.5 - 4.9 mmol/L INTERFACE SYSTEM CHLORIDE 107 96 - 108 mmol/L INTERFACE SYSTEM CO2 26 22 - 30 mmol/L INTERFACE SYSTEM GFR, >60 >=60 mL/min/1. 7 sq meter INTERFACE SYSTEM GFR 55(L) >=60 mL/min/1. 7 sq meter INTERFACE SYSTEM Comment: Estimated GFR rate interpretative information for both Americans and non- Americans is available on the [facility] Intranet at: [email or web address] Select: Lab Policies and Procedures Select: Reference Ranges - GFR 05/22/2006 12:2 4 AM CDT Tex Spencer MD CHEMISTRY ORDERABLES Edited INTERFACE SYSTEM Refer to clinic/hospital department documented in this encounter Visit Diagnoses Diagnosis Unspecified symptom associated with female genital organs- Primary documented in this encounter Additional Health Concerns Infection Onset Date Last Indicated Resolved Time R/O Respiratory 01/11/2023 01/11/2023 01/11/2023 7 :48 PM SPAR CAP BEVELER R/O Respiratory 02/19/2024 02/19/2024 02/19/2024 1 1:21 AM SPAR CAP BEVELER Influenza 02/19/2024 02/19/2024 02/26/2024 1:16 AM SPAR CAP BEVELER R/O Respiratory 03/13/2024 03/13/2024 03/13/2024 4:20 PM SPAR CAP BEVELER Human Metapneumovirus 03/13/2024 03/13/20242024 1:16 AM SPAR CAP BEVELER R/O C. diff 03/13/2024 03/13/2024 03/14/2024 8:00 PM SPAR CAP BEVELER R/O C. diff 03/14/2024 03/14/2024 03/15/2024 6:17 PM SPAR CAP BEVELER documented as of this encounter Care Teams Fuel Tank Sealer And Tester Relationship Specialty Start Date End Date Juventino Howe MD [address] [facility] [address] [place] [address] PCP - General Internal Medicine 11/04/11 documented as of this encounter
--- OUTSIDE RECORDS SUMMARY | 2024-07-26 18:07 | XMS_ITS | Encounter Summary ---
Author Organization [facility] Address [address] [place] [address] Care Team Providers Care Caustic Room Attendant Name Role Phone Juventino Howe MD Primary Care Provider [phone] Encounter Details Date Type Department Care Team (Latest Contact Info) Description 02/23/2008 Outpatient Historical [facility] Lynne Navarro MD [address] [place] [address] Flatulence, Eructation, and Gas Pain Social History Tobacco Use Types Packs/Day Years Used Date Smoking Tobacco: Never Assessed Comments Unknown Sex and Gender Information Value Date Recorded Sex Assigned at Not on file Legal Sex Female 3:38 AM IMPROVEMENT ANALYST Gender Identity Not on file Sexual Orientation Not on file documented as of this encounter Plan of Treatment Upcoming Encounters Date Type Department Care Team (Late st Contact Info) Description 07/31/2024 5:00 PM CDT Appointment [facility] Therapy Services [address] [address] Chandler Spivey PA [address] [facility] [address] [place] [address] Maegan Duncan, Physical Therapist 08/02/2024 5:00 PM CDT Appointment [facility] Neuro Rehabilitation [place] [address] [place] [address] Jonathan Cortez MD [address] [facility] [address] [address] -x0 (Work) Sarah Estrada, ENT CONSULTANT 08/09/2024 5:00 PM CDT Appointment [facility] [address] [facility] [address] [place] [address] Chandler Spivey PA [address] [facility] [address] [place] [address] Maegan Duncan, Physical Therapist 08/30/2024 3:30 PM CDT Office Visit [facility] Internal Medicine Medical [place] [facility] [address] [facility] [address] [address] Juventino Howe MD [address] [facility] [address] [place] [address] 10/31/2024 3:00 PM CDT Office [facility] Pulmonology [facility] [address] [facility] [address] [place] [address] Everett Cam MD [address] [facility] [address] [place] [address] 12/28/2024 2:45 PM IMPROVEMENT ANALYST Office Visit [facility] Endocrinology [address] [facility] [address] [place] [address] Sheldon Canales MD [address] [facility] [address] [place] [address] 02/26/2025 3:10 PM IMPROVEMENT ANALYST Office Visit [facility] Gastroenterology [facility] [address] [facility] [address] [place] [address] Suzette Cody MD [address] [facility] [address] [place] [address] documented as of this encounter Procedures Procedure Name Priority Date/Time Associated Diagnosis Comments OCCULT BLOOD GUAIAC SCREEN, 1-3 CARDS Routine 02/25/2008 11:14 AM IMPROVEMENT ANALYST documented in this encounter Results * OCCULT BLOOD, OUTPATIENT 1-3 CARDS (02/25/2008 11:14 AM IMPROVEMENT ANALYST) OB #1, DATE/TIME COLLECTED 02/24/08 830am [facility] OB #2, DATE/TIME COLLECTED 02/24/08 9am [facility] OB #3, DATE/TIME COLLECTED 10am [facility] OCCULT BLOOD #1 Negative Negative [facility] OCCULT BLOOD #3 Negative Negative [facility] OCCULT BLOOD #2 Negative Negative [facility] Stool specimen (specimen) 02/25/2008 11:14 AM IMPROVEMENT ANALYST 02/25/2008 11:22 AM IMPROVEMENT ANALYST Narrative INTERFACE SYSTEM - 02/25/2008 12:05 PM IMPROVEMENT ANALYST Spec # us Lynne Escobar MD BODY FLUIDS AND STOOLS Final Re tommie INTERFACE SYSTEM Refer to clinic/hospital department [facility] CLIA# [id number] [address] [facility] [place] [place] [address] documented in this encounter Visit Diagnoses Diagnosis Flatulence, eructation, and gas pain documented in this encounter Additional Health Concerns Infection Onset Date Last Indicated Resolved Time R/O Respiratory 01/11/2023 01/11/2023 01/11/2023 7 :48 PM IMPROVEMENT ANALYST R/O Respiratory 02/19/2024 02/19/2024 02/19/2024 1 1:21 AM IMPROVEMENT ANALYST Influenza 02/19/2024 02/19/2024 02/26/2024 1:16 AM IMPROVEMENT ANALYST R/O Respiratory 03/13/2024 03/13/2024 03/13/2024 4:20 PM IMPROVEMENT ANALYST Human Metapneumovirus 03/13/2024 03/13/20242024 1:16 AM IMPROVEMENT ANALYST R/O C. diff 03/13/2024 03/13/2024 03/14/2024 8:00 PM IMPROVEMENT ANALYST R/O C. diff 03/14/2024 03/14/2024 03/15/2024 6:17 PM IMPROVEMENT ANALYST documented as of this encounter Care Teams Caustic Room Attendant Relationship Specialty Start Date End Date Juvenitno Howe MD [address] [facility] [address] [place] [address] PCP - General Internal Medicine 11/04/11 documented as of this encounter
--- OUTSIDE RECORDS SUMMARY | 2024-07-26 18:07 | XMS_ITS | Clinical Summary ---
Author Organization [facility] Address [address] [place] [address] Care Team Providers Care Time Study Clerk Name Role Phone Juventino Howe MD Primary Care Provider [phone] Tomer Thompson Unavailable [phone] Valerio Real MD Unavailable [phone] Em Valencia MD Unavailable [phone] Allergies Active Allergy Reactions Criticality Noted Date Comments Aspirin Hives Medium Cefaclor Nausea & Vomiting Low Ceftriaxone Hives Medium Ciprofloxacin Itching Medium Epinephrine Other (See comments),Palpitati ons High Reaction: Hypertension, Palpitations, Levofloxacin Itching Reaction: Itching, Morphine Other (See comments) Low 07/26/2022 Respiratory depression Norfloxacin Hives Medium 08/13/2005 Ofloxacin Procaine Hcl Other (See comments),Mental status changes Medium 08/13/2005 HYPERTENSION Sulfa (Sulfonamide Antibiotics) Nausea & Vomiting Low Medications cyanocobalamin (Vitamin B-12) 1,000 mcg/mL injection Inject 1 mL (1,000 mcg total) into the muscle as instructed [address] (PROTONIX) 40 mg EC tablet Take 1 tablet (40 mg total) by mouth daily 8 Active rosuvastatin (CRESTOR) 5 mg tablet Take 1 tablet (5 mg total) by mouth daily 1 Active fluticasone-ume clidin-vilanter (Trelegy Ellipta) 200-62.5-25 mcg inhaler Inhale 1 puff daily 2 Active hyoscyamine (LEVSIN) 0.125 mg tablet Take 1 tablet (0.125 mg total) by mouth 3 (three) times a day as needed for cramping 1 Active albuterol 2.5 mg /3 mL (0.083 %) nebulizer solution Take 3 mL (2.5 mg total) by nebulization every 6 (six) hours as needed for wheezing 75 mL 2 Active albuterol HFA (PROVENTIL HFA,VENTOLIN HFA,PROAIR HFA) 90 mcg/actuation inhaler Inhale 2 puffs every 4 (four) hours as needed for wheezing 8.5 g 2 Active tiZANidine (ZANAFLEX) 4 mg tablet Take 1 tablet (4 mg total) by mouth daily Active montelukast (SINGULAIR) 10 mg tablet Take 1 tablet (10 mg total) by mouth nightly Active ergocalciferol (VITAMIN D) 50,000 unit capsule Take 1 capsule (50,000 Units total) by mouth once a week Active nortriptyline (PAMELOR) 10 mg capsule Take 1 capsule (10 mg total) by mouth nightly Take 1-2 tablets every night for migraine prevention 60 capsule 11 3 Active Additional Information Patient not taking.Reported on 11/25/2022 indomethacin (INDOCIN) 50 mg capsuleIndicati ons:headaches Take 1 capsule (50 mg total) by mouth 3 (three) times a day as needed (headache) 60 capsule 3 3 Active busPIRone (BUSPAR) 5 mg tablet 3 Active guaiFENesin (ROBITUSSIN) syrup 100 mg/5 mL Take 5-10 mL (100-200 mg total) by mouth every 4 (four) hours as needed for cough 60 mL 3 Active Active Problems Problem Noted Date Diagnosed Date Enteritis 07/26/2022 Dehydration with hyponatremia 07/26/2022 Cervical radiculopathy at C7 05/26/2022 Lumbar radiculopathy 05/26/2022 Numbness and tingling of left upper extremity Right facial numbness 01/30/2022 Right foot drop 01/30/2022 SOBOE (shortness of breath on exertion) 12/17/19 GERD (gastroesophageal reflux disease) Chronic obstructive pulmonary disease 05/13/2021 Atypical chest pain 04/01/2021 Overview (11/18/2021): Stress Test Chest tightness 02/12/[address] scan, colon 12/16/2020 Change in bowel habits 12/16/2020 Dilation of pancreatic duct 11/01/2020 Midline low back pain 08/19/2020 Chronic idiopathic constipation 07/23/2020 Delayed gastric emptying 07/23/2020 Hyperparathyroidism 11/22/2019 Memory impairment 11/22/2019 Mixed hyperlipidemia 03/15/2019 Pernicious anemia 10/04/2018 Hemochromatosis 10/03/2018 Anxiety state 06/03/2017 Fatigue 12/30/2015 Pelvic pain in female 12/19/2015 Elevated alkaline phosphatase level 04/23/2014 Hypercalcemia 04/23/2014 Abdominal pain, generalized 03/08/2014 Arthralgia of lower leg 05/18/2013 Overview (05/20/2016): JOINT PAIN-L/LEG Arthralgia of shoulder 05/18/2013 Overview (05/21/2016): JOINT PAIN-SHLDER Vitamin D deficiency 07/08/2011 Gastroparesis 12/23/2010 Smoker 11/25/2010 Overview (11/18/2021): Description: 11/25/2010 Constipation 07/30/2010 Other specified disorders of muscle 06/13/2010 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 Vitamin B 12 deficiency 10/25/2009 Condyloma acuminatum 09/25/2009 Immunizations Immunization Administration Dates Next Due Influenza, Quadrivalent, Spl it, Preservative Free, Intramuscular 11/22/2019,12/18/2017 Influenza, Trivalent, Cell C ulture-based MDCK, Preservative Free, Antibiotic Free, Intramuscular 11/30/2016 Influenza, Trivalent, IM (MDV) 12/03/2020,2018,12/06/2018 Moderna SARS-CoV-2 Monovalen t Vaccination (12+ YRS) 06/14/2020 Td, adsorbed 02/16/1992 Surgical History Surgery Date Site/Laterality Comments HYSTERECTOMY Hysterectomy CHOLECYSTECTOMY Cholecystectomy OTHER SURGICAL HISTORY Hysterectomy, total, unilateral removal tube and ovary OOPHORECTOMY Ovaries removed Medical History Medical History Date Comments Hx Other Medical back pain Hx Other Medical gasttropresis Hx Other Medical cloric erosion Hx Other Medical pelvic floor re laxation Hx Other Medical ovaries Gastroesophageal reflux disease GERD Anemia Anemia Hyperlipidemia Hyperlipidemia Hx Other Medical Gastroparesis; Comments: SAB 10/27/2013 - Asthma Cancer (HCC) COPD (chronic obstructive pu lmonary disease) (HCC) Gastric reflux Osteopenia Osteoporosis Family History Medical History Relation Name Comments Cancer Father Hypertension Father Stroke Father Cancer Mother Hypertension Mother Blood Clot Other 1 Family history of blood clots; Hypertension Other 2 Family history of Hypertension; Relation Name Status Comments Father Mother Other 1 Other 2 Social History Tobacco Use Types Packs/Day Years Used Date Smoking Tobacco: Former Cigarettes Q uit: 2020 Tobacco Cessation:Counseling Given: Not Answered Alcohol Use Standard Drinks/Week Comments No 0 (1 standard drink = 0.6 oz pur e alcohol) Social Connection and Isolat ion Panel [NHANES] Answer Date Recorded In a typical week, how many times do you talk on the phone with family, friends, or neighbors? Three times a week 07/27/2022 How often do you get togethe r with friends or relatives? Three times a week 07/27/2022 How often do you attend chur or evangelical services? More than 4 times per year 07/27/2022 Do you belong to any clubs o r organizations such as yazidism groups, unions, fraternal or athletic groups, or school groups? No 07/27/2022 How often do you attend meet ings of the clubs or organizations you belong to? Never 07/27/2022 Are you , , di vorced, , never , or living with a partner? 07/27/2022 AUDIT-C Answer Date Recorded Q1: How often do you have a drink containing alcohol? Never 07/26/2022 Q2: How many drinks containi ng alcohol do you have on a typical day when you are drinking? Patient does not drink Q3: How often do you have si x or more drinks on one occasion? Never 07/26/2022 Overall Financial Resource Strain (CARDIA) Answe r Date Recorded How hard is it for you to pa y for the very basics like food, housing, medical care, and heating? Not hard at all 07/27/2022 Hunger Vital Sign Answer Date Recorded Within the past 12 months, y ou worried that your food would run out before you got the money to buy more. Never true 07/28/19 23 Within the past 12 months, t he food you bought just didn't last and you didn't have money to get more. Never true 07/27/2022 PRAPARE - Transportation Answer Date Re corded In the past 12 months, has l ack of transportation kept you from medical appointments or from getting medications? No 07/16 In the past 12 months, has l ack of transportation kept you from meetings, work, or from getting things needed for daily living? No 07/27/2022 Personal Safety Answer Date Recorded Have you ever been in or are you currently in a harmful physical or emotional relationship or is someone making you feel afraid or unsafe? Denies 10/11/2022 Education Answer Date Recorded What is the highest level of school you have completed or the highest degree you have received? 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 Not on file Not on file Not on file Obstetrics History Para Term AB IAB SAB Ectopic Multiple Livin g Live Births 2 2 2 Date Outcome GA Total Labor Labor/2nd/3rd Weight Sex Type Anes PTL An A1 A5 Name Clin Term Term Last Filed Vital Signs Vital Sign Reading Time Taken Comments Blood Pressure 122/68 11/25/2022 2:33 PM CDT Pulse 96 10/15/2022 5:51 PM CDT Temperature 36.7 C (98 F) 10/15/2022 5:51 PM CDT Respiratory Rate 18 10/15/2022 5:51 PM CDT Oxygen Saturation 100% 10/15/2022 5:51 PM CDT Inhaled Oxygen Concentration - - Weight 70.3 kg (155 lb) 11/25/2022 2:33 PM CDT Height 157.5 cm (5' 2) 11/25/2022 2:33 PM CDT Body Mass Index 28.35 11/25/2022 2:33 PM CDT Plan of Treatment Health Maintenance Due Date Last Done Comments Colon Cancer Screening-Colonoscopy 1960 Depression Screening 1960 Hepatitis C Screening 1960 Hepatitis B Screening 06/30/1977 Pneumococcal vaccine 65+ (1 of 2 - PCV) 06/30/1978 DTaP/Tdap/Td Vaccine (1 - Tdap) 02/17/1992 3 Zoster Vaccine (1 of 2) 06/30/2009 Breast Cancer Screening-Mammogram 08/07/2023 08/06/2022, 07/21/2022, 11/22/2019, Additional history exists Fall Risk Assessment 09/25/2023 09/24/2022 Covid-19 Vaccine (2023-2 5 season) 2023 06/14/2020, 05/31/2020, 05/03/2020 Osteoporosis Screening-Bone Density Scan 12/12/2023 12/11/2021 Well Visit 65+ 06/30/2024 Influenza Vaccine (Season Ended) 2024 12/03/2020, 11/22/2019, 12/13/2018, Additional history exists Colon Cancer Screening-FIT Discontinued 12/26/2017 Procedures Procedure Name Priority Date/Time Associated Diagnosis Comments SCREENING MAMMOGRAM 2D BILATERAL Schedule Routine, Read Routine (OP Routine) 08/06/2022 6:17 AM CDT OCCULT BLOOD, FECAL (FIT) STAT 12/26/2017 11:14 PM MEDICAL RECORDS RECEPTIONIST from Last 3 Months or Most Recently Relevant to Health Maintenance Results * Screening Mammogram 2D Bilateral (08/06/2022 6:17 AM CDT) Anatomical Region Laterality Modality Breast Bilateral Mammography us Historical Provider MD LARA MAMMO PROCEDURES Alice l Result * (ABNORMAL) Occult blood, fecal non neoplasm screening (12/26/2017 11:14 PM MEDICAL RECORDS RECEPTIONIST) Occult blood, fecal Positive(A) Negative [facility] (ANNEM[facility]IE) Collection date [id number] [facility] (ANN[facility]) Collection time 1, feces 2314 [facility] (ANNEMARIE) Stool 12/26/2017 11:1 4 PM MEDICAL RECORDS RECEPTIONIST 12/26/2017 11:23 PM MEDICAL RECORDS RECEPTIONIST Narrative [facility] (ANNEMARIE) - 12/26/2017 11:24 PM MEDICAL RECORDS RECEPTIONIST Ludwin Peralta MD LAB BODY FLUIDS AND STO OLS ORDERABLES Final Result [facility] (ANNEMARIE) 1 [facility] Department [place] [address] from Last 3 Months or Most Recently Relevant to Health Maintenance Insurance ANTHEM ACCESS ANTHEM ACCESS R [facility] Advance Directives For more information, please contact: [phone] * Full Code (Latest Code Status on File) Date Activated Date Inactivated Comments 07/26/2022 5:48 PM 07/28/2022 4:08 PM * Full Code Date Activated Date Inactivated Comments 07/26/2022 5:48 PM 07/26/2022 5:48 PM Care Teams Time Study Clerk Relationship Specialty Start Date End Date Juventino Howe MD [address] [place] [address] PCP - General 12/26/17 Tomer Thompson PA [address] [place] [id number] Physician Investigations Chief Neurosurgery 03/05/22 Valerio Real MD [address] [place] [address] [place] [id number] Consulting Physician Neurosurgery 03/05/22 Em Valencia MD [address] [place] [address] Consulting Physician Pain Management 03/10/22
--- OUTSIDE RECORDS SUMMARY | 2024-07-26 18:07 | XMS_ITS | Encounter Summary ---
Author Organization [facility] Address [address] [place] [address] Care Team Providers Care Antenna Design Engineer Name Role Phone Juventino Howe MD Primary Care Provider Encounter Details Date Type Department Care Team (Late st Contact Info) Description 04/08/2008 Outpatient Historical [facility] Lynne Escobar MD [address] [place] [address] Social History Tobacco Use Types Packs/Day Years Used Date Smoking Tobacco: Never Assessed Comments Unknown Sex and Gender Information Value Date Recorded Sex Assigned at Not on file Legal Sex Female 3:38 AM ADMITTING SUPERVISOR Gender Identity Not on file Sexual Orientation Not on file documented as of this encounter Plan of Treatment Upcoming Encounters Date Type Department Care Team (Late st Contact Info) Description 07/31/2024 5:00 PM CDT Appointment [facility] Therapy [address] [address] Chandler Spivey PA [address] [facility] [address] [place] [address] Maegan Duncan, Physical Therapist 08/02/2024 5:00 PM CDT Appointment [facility] Neuro Rehabilitation [facility] [address] [facility] [place] [address] Jonathan Cortez MD [address] [facility] [address] [address] -x7 (Work) Sarah Estrada, RYAN 08/09/2024 5:00 PM CDT Appointment [facility] [place] [address] [place] [address] Chandler Spivey PA [address] [facility] [address] [place] [address] Maegan Duncan, Physical Therapist 08/30/2024 3:30 PM CDT Office Visit [facility] Internal Medicine Medical [place] [address] [address] Juventino Howe MD [address] [facility] [address] [place] [address] 10/31/2024 3:00 PM CDT Office Visit [facility] Pulmonology [facility] [address] [facility] [address] [place] [address] Everett Cam MD [address] [facility] [address] [place] [address] 12/28/2024 2:45 PM ADMITTING SUPERVISOR Office Visit [facility] Endocrinology [address] [facility] [address] [place] [address] Sheldon Canales MD [address] [place] [address] 02/26/2025 3:10 PM ADMITTING SUPERVISOR Office Visit [facility] Gastroenterology [facility] [address] [place] [address] Suzette Cody MD [address] [place] [address] documented as of this encounter Visit Diagnoses Not on filedocumented in this encounter Additional Health Concerns Infection Onset Date Last Indicated Resolved Time R/O Respiratory 01/11/2023 01/11/2023 01/11/2023 7 :48 PM ADMITTING SUPERVISOR R/O Respiratory 02/19/2024 02/19/2024 02/19/2024 1 1:21 AM ADMITTING SUPERVISOR Influenza 02/19/2024 02/19/2024 02/26/2024 1:16 AM ADMITTING SUPERVISOR R/O Respiratory 03/13/2024 03/13/2024 03/13/2024 4 :20 PM ADMITTING SUPERVISOR Human Metapneumovirus 03/13/2024 03/13/20242024 1:16 AM ADMITTING SUPERVISOR R/O C. diff 03/13/2024 03/13/2024 03/14/2024 8:00 PM ADMITTING SUPERVISOR R/O C. diff 03/14/2024 03/14/2024 03/15/2024 6:17 PM ADMITTING SUPERVISOR documented as of this encounter Care Teams Antenna Design Engineer Relationship Specialty Start Date End Date Juventino Howe MD [address] [facility] [address] [place] [address] PCP - General Internal Medicine 11/04/11 documented as of this encounter
--- OUTSIDE RECORDS SUMMARY | 2024-07-26 18:07 | XMS_ITS | Encounter Summary ---
Author Organization [facility] Address [address] [place] [address] Care Team Providers Care Player Services Representative Name Role Phone Juventino Howe MD Primary Care Provider [phone] Encounter Details Date Type Department Care Team (Latest Contact Info) Description 02/20/2008 Outpatient Historical [facility] Lynne Navarro MD [address] [place] [address] Abdominal Pain, Right Lower Quadrant Social History Tobacco Use Types Packs/Day Years Used Date Smoking Tobacco: Never Assessed Comments Unknown Sex and Gender Information Value Date Recorded Sex Assigned at Not on file Legal Sex Female 3:38 AM STANDARDS ANALYST Gender Identity Not on file Sexual Orientation Not on file documented as of this encounter Plan of Treatment Upcoming Encounters Date Type Department Care Team (Late st Contact Info) Description 07/31/2024 5:00 PM CDT Appointment [facility] Therapy Services [address] [address] Chandler Spivey PA [address] [facility] [address] [place] [address] Maegan Duncan, Physical Therapist 08/02/2024 5:00 PM CDT Appointment [facility] Neuro Rehabilitation [place] [address] [place] [address] Jonathan Cortez MD [address] [facility] [address] [address] -x0 (Work) Sarah Estrada, FAMILY SERVICE AIDE 08/09/2024 5:00 PM CDT Appointment [facility] [address] [facility] [address] [place] [address] Chandler Spivey PA [address] [facility] [address] [place] [address] Maegan Duncan, Physical Therapist 08/30/2024 3:30 PM CDT Office Visit [facility] Internal Medicine Medical [place] [facility] [address] [facility] [address] [address] Juventino Howe MD [address] [facility] [address] [place] [address] 10/31/2024 3:00 PM CDT Office Visit [facility] Pulmonology [facility] [address] [facility] [address] [place] [address] Everett Cam MD [address] [facility] [address] [place] [address] 12/28/2024 2:45 PM STANDARDS ANALYST Office Visit [facility] Endocrinology [address] [facility] [address] [place] [address] Sheldon Canales MD [address] [facility] [address] [place] [address] 02/26/2025 3:10 PM STANDARDS ANALYST Office Visit [facility] Gastroenterology [facility] [address] [facility] [address] [place] [address] Suzette Cody MD [address] [facility] [address] [place] [address] documented as of this encounter Procedures Procedure Name Priority Date/Time Associated Diagnosis Comments CBC WITH DIFFERENTIAL Routine 02/20/2008 11:18 AM STANDARDS ANALYST COMPREHENSIVE METABOLIC PANEL Routine 02/20/2008 11:18 AM STANDARDS ANALYST documented in this encounter Results * (ABNORMAL) COMPREHENSIVE METABOLIC PANEL (02/20/2008 11:18 AM STANDARDS ANALYST) CHLORIDE 99 96 - 108 mmol/L [facility] CREATININE 0.69 0.51 - 0.95 mg/dL [facility] ALT 29 0 - 31 U/L [facility] SODIUM 137 135 - 145 mmol/L [facility] ALKALINE PHOSPHATASE 117(H) 35 - 104 U/L [facility] CO2 26 22 - 30 mmol/L [facility] BILIRUBIN TOTAL 0.3 0.2 - 1.0 mg/dL [facility] POTASSIUM 3.9 3.5 - 4.9 mmol/L [facility] TOTAL PROTEIN 7.2 6.3 - 8.6 g/dL [facility] GLUCOSE 92 65 - 99 mg/dL [facility] AST 27 12 - 32 U/L [facility] BUN 10 6 - 20 mg/dL [facility] CALCIUM 9.8 8.6 - 10.2 mg/dL [facility] ALBUMIN 4.5 3.4 - 4.8 g/dL [facility] GFR, >60 >=60 mL/min/1. 7 sq meter [facility] GFR >60 >=60 mL/min/1. 7 sq meter [facility] Comment: Modification of Diet in Renal Disease (MDRD) study formula. Estimated GFR rate interpretative information for both Americans and non- Americans is available on the [facility] Intranet at: [email or web address] Select: Lab Policies and Procedures Select: Reference Ranges - GFR Blood specimen (specimen) 02/20/2008 11:18 AM STANDARDS ANALYST 02/20/2008 11:25 AM STANDARDS ANALYST Lynne Escobar MD CHEMISTRY ORDERABLES Edited INTERFACE SYSTEM Refer to clinic/hospital department [facility] CLIA# [id number] [address] [place], [place] [address] * (ABNORMAL) CBC WITH DIFFERENTIAL (02/20/2008 11:18 AM STANDARDS ANALYST) RBC 4.70 3.90 - 4.90 M/uL [facility] MCHC 34.5 31.5 - 35.5 % [facility] MCV 94.9 82.0 - 99.0 fL [facility] PLATELETS 299 140 - 350 K/uL [facility] HEMOGLOBIN 15.4(H) 11.8 - 14.8 g/dL [facility] RDW 12.5 11.5 - 14.5 % [facility] WBC 9.2 4.0 - 9.8 K/uL [facility] MCH 32.8(H) 27.2 - 32.6 pg [facility] MPV 11.1 9.3 - 12.4 fL [facility] HEMATOCRIT 44.6(H) 35.5 - 44.0 % [facility] RDW-STDEV 43.0 37.1 - 48.7 fL [facility] NEUTROPHILS 63 45 - 70 % [facility] NEUTROPHIL ABSOLUTE 5.76 1.90 - 7.00 K/uL [facility] EOSINOPHILS 1 0 - 7 % [facility] EOSINOPHIL ABSOLUTE 0.11 0.00 - 0.70 K/uL [facility] LYMPHOCYTES 31 16 - 45 % [facility] LYMPHOCYTE ABSOLUTE 2.83 0.70 - 4.50 K/uL [facility] BASOPHILS 0 0 - 2 % [facility] BASOPHILS ABSOLUTE 0.03 0.00 - 0.20 K/uL [facility] MONOCYTES 5 3 - 13 % [facility] MONOCYTE ABSOLUTE 0.49 0.10 - 1.30 K/uL [facility] Blood specimen (specimen) 02/20/2008 11:18 AM STANDARDS ANALYST 02/20/2008 11:26 AM STANDARDS ANALYST us Lynne Escobar MD HEMATOLOGY ORDERABLES Edited INTERFACE SYSTEM Refer to clinic/hospital department [facility] CLIA# [id number] [address] [place] [address] documented in this encounter Visit Diagnoses Diagnosis Abdominal pain, right lower quadrant documented in this encounter Additional Health Concerns Infection Onset Date Last Indicated Resolved Time R/O Respiratory 01/11/2023 01/11/2023 01/11/2023 7 :48 PM STANDARDS ANALYST R/O Respiratory 02/19/2024 02/19/2024 02/19/2024 1 1:21 AM STANDARDS ANALYST Influenza 02/19/2024 02/19/2024 02/26/2024 1:16 AM STANDARDS ANALYST R/O Respiratory 03/13/2024 03/13/2024 03/13/2024 4 :20 PM STANDARDS ANALYST Human Metapneumovirus 03/13/2024 03/13/20242024 1:16 AM STANDARDS ANALYST R/O C. diff 03/13/2024 03/13/2024 03/14/2024 8:00 PM STANDARDS ANALYST R/O C. diff 03/14/2024 03/14/2024 03/15/2024 6:17 PM STANDARDS ANALYST documented as of this encounter Care Teams Player Services Representative Relationship Specialty Start Date End Date Juventino Howe MD [address] [facility] [place] [address] PCP - General Internal Medicine 11/04/11 documented as of this encounter
--- OUTSIDE RECORDS SUMMARY | 2024-07-26 18:07 | XMS_ITS | Encounter Summary ---
Author Organization [facility] Address [address] [place] [address] Care Team Providers Care Surgical Scrub Technologist Name Role Phone Juventino Howe MD Primary Care Provider [phone] Encounter Details Date Type Department Care Team (Late Contact Info) Description 07/13/2008 Outpatient Historical [facility] Lynne Escobar MD [address] [place] [address] Social History Tobacco Use Types Packs/Day Years Used Date Smoking Tobacco: Never Alcohol Use Standard Drinks/Week Comments No 0 (1 standard drink = 0.6 oz pur e alcohol) Comments No Sex and Gender Information Value Date Recorded Sex Assigned at Not on file Legal Sex Female 3:38 AM RECYCLING COORDINATOR Gender Identity Not on file Sexual Orientation Not on file documented as of this encounter Plan of Treatment Upcoming Encounters Date Type Department Care Team ([facility] Contact Info) Description 07/31/2024 5:00 PM CDT Appointment [facility] Therapy Services [address] [place] [address] Chandler Spivey PA [address] [place] [address] Maegan Duncan, Physical Therapist 08/02/2024 5:00 PM CDT Appointment [facility] Neuro Rehabilitation [facility] [address] [facility] [place] [address] Jonathan Cortez MD [address] [facility] [address] [address] -x0 (Work) Sarah Estrada, DELIVERY AIDE 08/09/2024 5:00 PM CDT Appointment [facility] [address] [facility] [address] [place] [address] Chandler Spivey PA [address] [facility] [address] [place] [address] Maegan Duncan, Physical Therapist 08/30/2024 3:30 PM CDT Office Visit [facility] Internal Medicine Medical [place] A [facility] [address] [facility] [address] [address] Juventino Howe MD [address] [facility] [address] [place] [address] 10/31/2024 3:00 PM CDT Office Visit [facility] Pulmonology [facility] [address] [facility] [address] [place] [address] Everett Cam MD [address] [place] [address] 12/28/2024 2:45 PM RECYCLING COORDINATOR Office Visit [facility] Endocrinology [address] [facility] [address] [place] [address] Sheldon Canales MD [address] [facility] [address] [place] [address] 02/26/2025 3:10 PM RECYCLING COORDINATOR Office Visit [facility] Gastroenterology [facility] [address] [facility] [address] [place] [address] Suzette Cody MD [address] [facility] [address] [place] [address] documented as of this encounter Visit Diagnoses Not on filedocumented in this encounter Additional Health Concerns Infection Onset Date Last Indicated Resolved Time R/O Respiratory 01/11/2023 01/11/2023 01/11/2023 7 :48 PM RECYCLING COORDINATOR R/O Respiratory 02/19/2024 02/19/2024 02/19/2024 1 1:21 AM RECYCLING COORDINATOR Influenza 02/19/2024 02/19/2024 02/26/2024 1:16 AM RECYCLING COORDINATOR R/O Respiratory 03/13/2024 03/13/2024 03/13/2024 4 :20 PM RECYCLING COORDINATOR Human Metapneumovirus 03/13/2024 03/13/20242024 1:16 AM RECYCLING COORDINATOR R/O C. diff 03/13/2024 03/13/2024 03/14/2024 8:00 PM RECYCLING COORDINATOR R/O C. diff 03/14/2024 03/14/2024 03/15/2024 6:17 PM RECYCLING COORDINATOR documented as of this encounter Care Teams Surgical Scrub Technologist Relationship Specialty Start Date End Date Juventino Howe MD [address] [facility] [address] [place] [address] PCP - General Internal Medicine 11/04/11 documented as of this encounter
--- OUTSIDE RECORDS SUMMARY | 2024-07-26 18:07 | XMS_ITS | Encounter Summary ---
Author Organization [facility] Address [address] [place] [address] Care Team Providers Care Burner Tender Name Role Phone Juventino Howe MD Primary Care Provider [phone] Encounter Details Date Type Department Care Team (Latest Contact Info) Description 06/11/2008 Outpatient Historical [facility] DRS BLDG Conversion, History Unspecified Disorder of Thyroid Social History Tobacco Use Types Packs/Day Years Used Date Smoking Tobacco: Never Assessed Comments Unknown Sex and Gender Information Value Date Recorded Sex Assigned at Not on file Legal Sex Female 3:38 AM RENEWABLE ENERGY PROJECT MANAGER Gender Identity Not on file Sexual Orientation Not on file documented as of this encounter Plan of Treatment Upcoming Encounters Date Type Department Care Team (Late st Contact Info) Description 07/31/2024 5:00 PM CDT Appointment [facility] Therapy Services [address] [place] [address] Chandler Spivey PA [address] [place] [address] Maegan Duncan, Physical Therapist 08/02/2024 5:00 PM CDT Appointment [facility] Neuro Rehabilitation [place] [address] [place] [address] Jonathan Cortez MD [address] [facility] [address] [address]x0 (Work) Sarah Estrada, MECHANICAL APPLICATIONS ENGINEER 08/09/2024 5:00 PM CDT Appointment [facility] Therapy [facility] [place] [address] [place] [address] Chandler Spivey PA [address] [facility] [address] [place] [address] Maegan Duncan, Physical Therapist 08/30/2024 3:30 PM CDT Office Visit [facility] Internal Medicine Medical [place] A [facility] [address] [address] Juventino Howe MD [address] [place] [address] 10/31/2024 3:00 PM CDT Office Visit [facility] Pulmonology [facility] [address] [facility] [address] [place] [address] Everett Cam MD [address] [place] [address] 12/28/2024 2:45 PM RENEWABLE ENERGY PROJECT MANAGER Office Visit [facility] Endocrinology [address] [facility] [address] [place] [address] Sheldon Canales MD [address] [facility] [address] [place] [address] 02/26/2025 3:10 PM RENEWABLE ENERGY PROJECT MANAGER Office Visit [facility] Gastroenterology [facility] [address] [facility] [address] [place] [address] Suzette Cody MD [address] [facility] [address] [place] [address] documented as of this encounter Procedures Procedure Name Priority Date/Time Associated Diagnosis Comments TSH REFLEXIVE Routine 06/11/2008 3:15 PM CDT documented in this encounter Results * TSH REFLEXIVE (06/11/2008 3:15 PM CDT) TSH 0.94 0.27 - 4.20 uU/mL [facility] Blood specimen (specimen) 06/11/2008 3:15 PM CDT 06/11/2008 3:28 PM CDT Narrative INTERFACE SYSTEM - 06/12/2008 12:16 PM CDT faxed to 06/12/08 12:16 ve us History Conversion CHEMISTRY ORDERABLES Edited INTERFACE SYSTEM Refer to clinic/hospital department [facility] CLIA# [id number] [address] [place] [address] documented in this encounter Visit Diagnoses Diagnosis Unspecified disorder of thyroid documented in this encounter Additional Health Concerns Infection Onset Date Last Indicated Resolved Time R/O Respiratory 01/11/2023 01/11/2023 01/11/2023 7 :48 PM RENEWABLE ENERGY PROJECT MANAGER R/O Respiratory 02/19/2024 02/19/2024 02/19/2024 1 1:21 AM RENEWABLE ENERGY PROJECT MANAGER Influenza 02/19/2024 02/19/2024 02/26/2024 1:16 AM RENEWABLE ENERGY PROJECT MANAGER R/O Respiratory 03/13/2024 03/13/2024 03/13/2024 4 :20 PM RENEWABLE ENERGY PROJECT MANAGER Human Metapneumovirus 03/13/2024 03/13/20242024 1:16 AM RENEWABLE ENERGY PROJECT MANAGER R/O C. diff 03/13/2024 03/13/2024 03/14/2024 8:00 PM RENEWABLE ENERGY PROJECT MANAGER R/O C. diff 03/14/2024 03/14/2024 03/15/2024 6:17 PM RENEWABLE ENERGY PROJECT MANAGER documented as of this encounter Care Teams Burner Tender Relationship Specialty Start Date End Date Juventino Howe MD [address] [place] [address] PCP - General Internal Medicine 11/04/11 documented as of this encounter
--- OUTSIDE RECORDS SUMMARY | 2024-07-26 18:07 | XMS_ITS | Encounter Summary ---
Author Organization [facility] Address [address] [place] [address] Care Team Providers Care Manager Of Internal Audit Name Role Phone Juventino Howe MD Primary Care Provider [phone] Encounter Details Date Type Department Care Team (Late st Contact Info) Description 06/11/2008 Outpatient Historical [facility] Lynne Escobar MD [address] [place] [address] Social History Tobacco Use Types Packs/Day Years Used Date Smoking Tobacco: Never Assessed Comments Unknown Sex and Gender Information Value Date Recorded Sex Assigned at Not on file Legal Sex Female 3:38 AM PODOPEDIATRICIAN Gender Identity Not on file Sexual Orientation Not on file documented as of this encounter Plan of Treatment Upcoming Encounters Date Type Department Care Team (Late st Contact Info) Description 07/31/2024 5:00 PM CDT Appointment [facility] Therapy [address] [address] Chandler Spivey PA [address] [facility] [address] [place] [address] Maegan Duncan, Physical Therapist 08/02/2024 5:00 PM CDT Appointment [facility] Neuro Rehabilitation [facility] [address] [facility] [place] [address] Jonathan Cortez MD [address] [facility] [address] [address] -x (Work) Sarah Estrada, RYAN 08/09/2024 5:00 PM CDT Appointment [facility] Services [place] [address] [place] [address] Chandler Spivey PA [address] [facility] [address] [place] [address] Maegan Duncan, Physical Therapist 08/30/2024 3:30 PM CDT Office Visit [facility] Internal Medicine Medical [place] A [address] [address] Juventino Howe MD [address] [facility] [address] [place] [address] 10/31/2024 3:00 PM CDT Office Visit [facility] Pulmonology [facility] [address] [facility] [address] [place] [address] Everett Cam MD [address] [facility] [address] [place] [address] 12/28/2024 2:45 PM PODOPEDIATRICIAN Office Visit [facility] Endocrinology [address] [facility] [address] [place] [address] Sheldon Canales MD [address] [place] [address] 02/26/2025 3:10 PM PODOPEDIATRICIAN Office Visit [facility] Gastroenterology [facility] [address] [place] [address] Suzette Cody MD [address] [place] [address] documented as of this encounter Visit Diagnoses Not on filedocumented in this encounter Additional Health Concerns Infection Onset Date Last Indicated Resolved Time R/O Respiratory 01/11/2023 01/11/2023 01/11/2023 7 :48 PM PODOPEDIATRICIAN R/O Respiratory 02/19/2024 02/19/2024 02/19/2024 1 1:21 AM PODOPEDIATRICIAN Influenza 02/19/2024 02/19/2024 02/26/2024 1:16 AM PODOPEDIATRICIAN R/O Respiratory 03/13/2024 03/13/2024 03/13/2024 4 :20 PM PODOPEDIATRICIAN Human Metapneumovirus 03/13/2024 03/13/20242024 1:16 AM PODOPEDIATRICIAN R/O C. diff 03/13/2024 03/13/2024 03/14/2024 8:00 PM PODOPEDIATRICIAN R/O C. diff 03/14/2024 03/14/2024 03/15/2024 6:17 PM PODOPEDIATRICIAN documented as of this encounter Care Teams Manager Of Internal Audit Relationship Specialty Start Date End Date Juventino Howe MD [address] [facility] [address] [place] [address] PCP - General Internal Medicine 11/04/11 documented as of this encounter
--- OUTSIDE RECORDS SUMMARY | 2024-07-26 18:07 | XMS_ITS | Encounter Summary ---
Author Organization [facility] Address [address] [place] [address] Care Team Providers Care Radio Station Engineer Name Role Phone Juventino Howe MD Primary Care Provider [phone] Encounter Details Date Type Department Care Team (Late st Contact Info) Description 05/10/2006 Outpatient Historical [facility] Support Serv. ([facility]) [address] [place] [address] Franklin Clemens MD NO ADDRESS ON FILE Social History Tobacco Use Types Packs/Day Years Used Date Smoking Tobacco: Never Assessed Comments Unknown Sex and Gender Information Value Date Recorded Sex Assigned at Not on file Legal Sex Female 3:38 AM PHOTOGRAMMETRIC SURVEYOR Gender Identity Not on file Sexual Orientation Not on file documented as of this encounter Plan of Treatment Upcoming Encounters Date Type Department Care Team (Late st Contact Info) Description 07/31/2024 5:00 PM CDT Appointment [facility] Therapy Services [address] [address] Chandler Spivey PA [address] [facility] [address] [place] [address] Maegan Duncan, Physical Therapist 08/02/2024 5:00 PM CDT Appointment [facility] Neuro Rehabilitation [facility] [address] [facility] [place] [address] Jonathan Cortez MD [address] [facility] [address] [address]x4 (Work) Sarah Estrada, RYAN 08/09/2024 5:00 PM CDT Appointment [facility] [place] [address] [place] [address] Chandler Spivey PA [address] [facility] [address] [place] [address] Maegan Duncan, Physical Therapist 08/30/2024 3:30 PM CDT Office Visit [facility] Internal Medicine Medical [place] A [address] [address] Juventino Howe MD [address] [facility] [address] [place] [address] 10/31/2024 3:00 PM CDT Office Visit [facility] Pulmonology [facility] [address] [facility] [address] [place] [address] Everett Cam MD [address] [facility] [address] [place] [address] 12/28/2024 2:45 PM PHOTOGRAMMETRIC SURVEYOR Office Visit [facility] Endocrinology [address] [facility] [address] [place] [address] Sheldon Canales MD [address] [place] [address] 02/26/2025 3:10 PM PHOTOGRAMMETRIC SURVEYOR Office Visit [facility] Gastroenterology [facility] [address] [facility] [address] [place] [address] Suzette Cody MD [address] [place] [address] documented as of this encounter Visit Diagnoses Not on filedocumented in this encounter Additional Health Concerns Infection Onset Date Last Indicated Resolved Time R/O Respiratory 01/11/2023 01/11/2023 01/11/2023 7 :48 PM PHOTOGRAMMETRIC SURVEYOR R/O Respiratory 02/19/2024 02/19/2024 02/19/2024 1 1:21 AM PHOTOGRAMMETRIC SURVEYOR Influenza 02/19/2024 02/19/2024 02/26/2024 1:16 AM PHOTOGRAMMETRIC SURVEYOR R/O Respiratory 03/13/2024 03/13/2024 03/13/2024 4 :20 PM PHOTOGRAMMETRIC SURVEYOR Human Metapneumovirus 03/13/2024 03/13/20242024 1:16 AM PHOTOGRAMMETRIC SURVEYOR R/O C. diff 03/13/2024 03/13/2024 03/14/2024 8:00 PM PHOTOGRAMMETRIC SURVEYOR R/O C. diff 03/14/2024 03/14/2024 03/15/2024 6:17 PM PHOTOGRAMMETRIC SURVEYOR documented as of this encounter Care Teams Radio Station Engineer Relationship Specialty Start Date End Date Juventino Howe MD [address] [facility] [address] [place] [address] PCP - General Internal Medicine 11/04/11 documented as of this encounter
--- OUTSIDE RECORDS SUMMARY | 2024-07-26 18:07 | XMS_ITS | Clinical Summary ---
Author Organization [facility] Address [address] [facility] [address] Care Team Providers Care Manager Product Management Name Role Phone Juventino Howe MD Primary Care Provider [phone] Source Comments [facility],non-owned Affiliates and Associated Physician Practices is amultiple site organization consisting of ambulatory clinics and hospital sitesin [place], [place], [place] and [place]. This disclosure is being madepursuant to the Care Everywhere program and may not contain all information available regarding this patient. Last updated 17.[facility] Allergies Active Allergy Reactions Criticality Noted Date Comments Aspirin Skin Reactions Medium 11/18/2012 Ceftriaxone Skin Reactions Medium 11/18/2012 Active Problems Problem Noted Date Diagnosed Date Other specified disorders of muscle 11/18/2012 Resolved Problems Problem Noted Date Diagnosed Date Resolved Date Constipation 11/18/2012 06/14/2017 Social History Tobacco Use Types Packs/Day Years Used Date Smoking Tobacco: Every Day Cigarettes Smokeless Tobacco: Never Alcohol Use Standard Drinks/Week Comments No 0 (1 standard drink = 0.6 oz pur e alcohol) Comments Unknown Sex and Gender Information Value Date Recorded Sex Assigned at Not on file Legal Sex Female 6:32 PM PROGRAM DIRECTOR GROUP WORK Gender Identity Not on file Sexual Orientation Not on file Last Filed Vital Signs Vital Sign Reading Time Taken Comments Blood Pressure 100/58 11/18/2012 10:51 AM CDT Pulse 94 11/18/2012 10:51 AM CDT Temperature 37.1 C (98.7 F) 11/18/2012 10:51 AM CDT Respiratory Rate 18 11/18/2012 10:51 AM CDT Oxygen Saturation - - Inhaled Oxygen Concentration - - Weight 69 kg (152 lb 3.2 oz) 11/18/2012 10:51 AM CDT Height 160 cm (5' 3) 11/18/2012 10:51 AM CDT Body Mass Index 26.96 11/18/2012 10:51 AM CDT Plan of Treatment Health Maintenance Due Date Last Done Comments BONE DENSITY TESTING 1959 COLOGUARD (AGES 45-75) - COL ON CA SCREENING 1959 COLON MONITORING 1959 COLONOSCOPY - COLON CA SCREENING 1959 CT COLONOGRAPHY - COLON CA SCREENING 1959 Colorectal Cancer Screening 1959 FIT - COLON CA SCREENING 1959 FLEX SIG - COLON CA SCREENING 1959 LIPID TESTING 1959 MAMMOGRAM 1959 HIV SCREENING 06/30/1974 HEPATITIS C SCREENING 06/26/1977 DTAP/TDAP/TD VACCINES (1 - Tdap) 06/30/1978 PNEUMOCOCCAL VACCINE 50+ (1 of 1 - PCV) 06/30/2009 ZOSTER VACCINE (1 of 2) 06/30/2009 COVID-19 VACCINE (1 - 2023-2 5 season) 2023 DEPRESSION SCREENING 02/16/2024 INFLUENZA VACCINE (Season Ended) 2024 Respiratory Syncytial Virus (RSV) Vaccine Pt: or over 60 yrs (1 - 1-dose 75+ series) 06/30/2034 HEPATITIS B VACCINE Aged Out No longe r eligible based on patient's age to complete this topic HIB VACCINE Aged Out No longer eligi ble based on patient's age to complete this topic HPV VACCINE Aged Out No longer eligi ble based on patient's age to complete this topic MENINGOCOCCAL (Group B) VACC INE SHARED DECISION-MAKING Aged Out No longer eligibl e based on patient's age to complete this topic MENINGOCOCCAL GROUPS A/C/Y/W VACCINE Aged Out No longer eligible b ased on patient's age to complete this topic Care Teams Manager Product Management Relationship Specialty Start Date End Date Juventino Howe MD [address] [facility] [address] [place] [address] PCP - General 10/20/12
--- OUTSIDE RECORDS SUMMARY | 2024-07-26 18:07 | XMS_ITS | Encounter Summary ---
Author Organization [facility] Address [address] [place] [address] Care Team Providers Care Facial Operator Name Role Phone Juventino Howe MD Primary Care Provider [phone] Encounter Details Date Type Department Care Team (Late st Contact Info) Description 05/14/2006 Inpatient Historical [facility] Wendy Canales MD [address] [facility] [address] [place] [address] Peritoneal Adhesions (Postoperative) (Postinfection) (Primary Dx) Social History Tobacco Use Types Packs/Day Years Used Date Smoking Tobacco: Never Assessed Comments Unknown Sex and Gender Information Value Date Recorded Sex Assigned at Not on file Legal Sex Female 3:38 AM ORACLE EBS ARCHITECT Gender Identity Not on file Sexual Orientation Not on file documented as of this encounter Plan of Treatment Upcoming Encounters Date Type Department Care Team (Late Contact Info) Description 07/31/2024 5:00 PM CDT Appointment [facility] Therapy Services [place] [id number] [facility] [address] [place] [address] Chandler Spivey PA [address] [facility] [address] [place] [address] Maegan Duncan, Physical Therapist 08/02/2024 5:00 PM CDT Appointment [facility] [place] [address] [facility] [place] [address] Jonathan Cortez MD [address] [facility] [address] [place], [place] [phone] -[phone] (Work) Sarah Estrada, RYAN 08/09/2024 5:00 PM CDT Appointment [facility] [address] [facility] 145 [place] [address] Chandler Spivey PA [address] [facility] [address] [place] [address] Maegan Duncan, Physical Therapist 08/30/2024 3:30 PM CDT Office Visit [facility] Internal Medicine Medical [place] [facility] [address] [facility] [address] [address] Juventino Howe MD [address] [facility] [address] [place] [address] 10/31/2024 3:00 PM CDT Office Visit [facility] Pulmonology [facility] [address] [facility] [address] [place] [address] Everett Cam MD [address] [facility] [address] [place] [address] 12/28/2024 2:45 PM ORACLE EBS ARCHITECT Office Visit [facility] Endocrinology [address] [facility] [address] [place] [address] Sheldon Canales MD [address] [facility] [address] [place] [address] 02/26/2025 3:10 PM ORACLE EBS ARCHITECT Office Visit [facility] Gastroenterology [facility] [address] [facility] [address] [place] [address] Suzette Cody MD [address] [facility] [address] [place] [address] documented as of this encounter Procedures Procedure Name Priority Date/Time Associated Diagnosis Comments POC GLUCOSE Routine 05/15/2006 12:20 AM CDT CBC WITH DIFFERENTIAL Routine 05/10/2006 3:15 PM CDT CBC WITH DIFFERENTIAL Routine 05/10/2006 3:15 PM CDT BASIC METABOLIC PANEL Routine 05/10/2006 3:15 PM CDT documented in this encounter Results * (ABNORMAL) POC GLUCOSE (05/15/2006 12:20 AM CDT) GLUCOSE POC 130(H) 65 - 99 mg/dL INTERFACE SYSTEM 05/15/2006 12:2 0 AM CDT Wendy Canales MD POINT OF CARE TESTING E dited Performing Organization Address [facility] [place] Phone Number INTERFACE SYSTEM Refer to clinic/hospital department * (ABNORMAL) CBC WITH DIFFERENTIAL (05/10/2006 3:15 PM CDT) NEUTROPHILS 66 45 - 70 % INTERFAC E SYSTEM LYMPHOCYTES 28 16 - 45 % INTERFAC E SYSTEM MONOCYTES 4 3 - 13 % INTERFACE SYSTEM EOSINOPHILS 2 0 - 7 % INTERFAC E SYSTEM BASOPHILS 0 0 - 2 % INTERFACE SYSTEM NEUTROPHIL ABSOLUTE 7.32(H) 1.90 - 7.00 K/uL INTERFACE SYSTEM LYMPHOCYTE ABSOLUTE 3.12 0.70 - 4.50 K/uL INTERFACE SYSTEM MONOCYTE ABSOLUTE 0.48 0.10 - 1.30 K/uL INTERFACE SYSTEM EOSINOPHIL ABSOLUTE 0.18 0.00 - 0.70 K/uL INTERFACE SYSTEM BASOPHILS ABSOLUTE 0.04 0.00 - 0.20 K/uL INTERFACE SYSTEM 05/10/2006 3:15 PM CDT Wendy Canales MD HEMATOLOGY ORDERABLES E dited Performing Organization Address [facility] [place] de Phone Number INTERFACE SYSTEM Refer to clinic/hospital department * (ABNORMAL) CBC WITH DIFFERENTIAL (05/10/2006 3:15 PM CDT) WBC 11.1(H) 4.0 - 9.8 K/uL INTERFACE SYSTEM RBC 4.53 3.90 - 4.90 M/uL INTERFACE SYSTEM HEMOGLOBIN 14.8 11.8 - 14.8 g/dL INTERFACE SYSTEM HEMATOCRIT 42.2 35.5 - 44.0 % INTERFACE SYSTEM MCV 93.2 82.0 - 99.0 fL INTERFACE SYSTEM MCH 32.7(H) 27.2 - 32.6 pg INTERFACE SYSTEM MCHC 35.1 31.5 - 35.5 % INTERFACE SYSTEM RDW 13.1 11.5 - 14.5 % INTERFACE SYSTEM RDW-STDEV 44.6 37.1 - 48.7 fL INTERFACE SYSTEM PLATELETS 273 140 - 350 K/uL INTERFACE SYSTEM MPV 11.1 9.3 - 12.4 fL INTERFACE SYSTEM 05/10/2006 3:15 PM CDT Wendy Canales MD HEMATOLOGY ORDERABLES E dited INTERFACE SYSTEM Refer to clinic/hospital department * (ABNORMAL) BASIC METABOLIC PANEL (05/10/2006 3:15 PM CDT) GLUCOSE 93 65 - 99 mg/dL INTERFACE SYSTEM CREATININE 0.77 0.51 - 0.95 mg/dL INTERFACE SYSTEM CALCIUM 9.1 8.4 - 10.2 mg/dL INTERFACE SYSTEM BUN 12 6 - 20 mg/dL INTERFACE SYSTEM SODIUM 140 135 - 145 mmol/L INTERFACE SYSTEM POTASSIUM 3.4(L) 3.5 - 4.9 mmol/L INTERFACE SYSTEM CHLORIDE 102 96 - 108 mmol/L INTERFACE SYSTEM CO2 27 22 - 30 mmol/L INTERFACE SYSTEM GFR, >60 >=60 mL/min/1. 7 sq meter INTERFACE SYSTEM GFR >60 >=60 mL/min/1. 7 sq meter INTERFACE SYSTEM Comment: Estimated GFR rate interpretative information for both Americans and non- Americans is available on the [facility] Intranet at: [email or web address] Select: Lab Policies and Procedures Select: Reference Ranges - GFR 05/10/2006 3:15 PM CDT us Wendy Canales MD CHEMISTRY ORDERABLES Ed ited INTERFACE SYSTEM Refer to clinic/hospital department documented in this encounter Visit Diagnoses Diagnosis Peritoneal adhesions (postoperative) (postinfection)- Primary documented in this encounter Additional Health Concerns Infection Onset Date Last Indicated Resolved Time R/O Respiratory 01/11/2023 01/11/2023 01/11/2023 7 :48 PM ORACLE EBS ARCHITECT R/O Respiratory 02/19/2024 02/19/2024 02/19/2024 1 1:21 AM ORACLE EBS ARCHITECT Influenza 02/19/2024 02/19/2024 02/26/2024 1:16 AM ORACLE EBS ARCHITECT R/O Respiratory 03/13/2024 03/13/2024 03/13/2024 4 :20 PM ORACLE EBS ARCHITECT Human Metapneumovirus 03/13/2024 03/13/20242024 1:16 AM ORACLE EBS ARCHITECT R/O C. diff 03/13/2024 03/13/2024 03/14/2024 8:00 PM ORACLE EBS ARCHITECT R/O C. diff 03/14/2024 03/14/2024 03/15/2024 6:17 PM ORACLE EBS ARCHITECT documented as of this encounter Care Teams Facial Operator Relationship Specialty Start Date End Date Juventino Howe MD [address] [facility] [address] [place] [address] PCP - General Internal Medicine 11/04/11 documented as of this encounter
--- OUTSIDE RECORDS SUMMARY | 2024-07-26 18:07 | XMS_ITS | Encounter Summary ---
Author Organization [facility] Address [address] [place] [address] Care Team Providers Care Eap Specialist Name Role Phone Juventino Howe MD Primary Care Provider Encounter Details Date Type Department Care Team (Late st Contact Info) Description 06/20/2008 Outpatient Historical [facility] Conversion, History Bob Mittal MD Department of Radiology [address] [place] [address] Social History Tobacco Use Types Packs/Day Years Used Date Smoking Tobacco: Never Assessed Comments Unknown Sex and Gender Information Value Date Recorded Sex Assigned at Not on file Legal Sex Female 3:38 AM HORTICULTURALIST Gender Identity Not on file Sexual Orientation Not on file documented as of this encounter Plan of Treatment Upcoming Encounters Date Type Department Care Team (Late st Contact Info) Description 07/31/2024 5:00 PM CDT Appointment [facility] Therapy [address] [place] [address] Chandler Spivey PA [address] [place] [address] Maegan Duncan, Physical Therapist 08/02/2024 5:00 PM CDT Appointment [facility] Neuro Rehabilitation [place] [address] [facility] [place] [address] Jonathan Cortez MD [address] [facility] [address] [address] -x0 (Work) Sarah Estrada, FINISHING TECHNICIAN 08/09/2024 5:00 PM CDT Appointment [facility] [address] [facility] [address] [place] [address] Chandler Spivey PA [address] [facility] [address] [place] [address] Maegan Duncan, Physical Therapist 08/30/2024 3:30 PM CDT Office Visit [facility] Internal Medicine Medical [place] [facility] [address] [facility] [address] [address] Juventino Howe MD [address] [facility] [address] [place] [address] 10/31/2024 3:00 PM CDT Office [facility] Pulmonology [facility] [address] [facility] [address] [place] [address] Everett Cam MD [address] [facility] [address] [place] [address] 12/28/2024 2:45 PM HORTICULTURALIST Office Visit [facility] Endocrinology [address] [facility] [address] [place] [address] Sheldon Canales MD [address] [facility] [address] [place] [address] 02/26/2025 3:10 PM HORTICULTURALIST Office Visit [facility] Gastroenterology [place] [address] [facility] [address] [place] [address] Suzette Cody MD [address] [facility] [place] [address] [place] [address] documented as of this encounter Procedures Procedure Name Priority Date/Time Associated Diagnosis Comments XR CONSULTATION Timed Study 06/20/2008 10:46 AM CDT US GUIDE NEEDLE PLACEMENT Timed Study 06/20/2008 10:45 AM CDT CYTOLOGY, NON GYNE Routine 06/20/2008 10 :30 AM CDT documented in this encounter Results * XR CONSULTATION (06/20/2008 10:46 AM CDT) 06/20/2008 10:4 6 AM CDT Narrative INTERFACE SYSTEM - 06/26/2008 11:13 PM CDT [place] [address] [place], [place] [address] Admit Date: 06/20/2008 DUYEN OROSCO Sex: F Admit Prov: DOCTOR , NOT ONSTAFF Date: 1960 Primary Care Prov: CMRN: [id number] [id number] [facility] SERVICES Ordering Prov: DOCTOR , NOT ONSTAFF Accession Number: [id number] Interpretation SEE OTHER REPORT OF SAME DATE. Dictated by: RADIOLOGY, DEPARTMENT O Electronically signed by: RADIOLOGY, DEPARTMENT 06/26/2008 23:11 Transcribed: 06/26/2008 23:04 AMK Procedure Note Radiology, Radiologist - 06/26/[address] [address] Admit Date: 06/20/2008 DUYEN OROSCO Sex: F Admit Prov: DOCTOR , NOT ONSTAFF Date: 1960 Primary Care Prov: CMRN: [id number] [id number] IMAGING SERVICES Ordering Prov: DOCTOR , NOT ONSTAFF Interpretation SEE OTHER REPORT OF SAME DATE. Dictated by: RADIOLOGY, DEPARTMENT O Electronically signed by: RADIOLOGY, DEPARTMENT 06/26/2008 23:11 Transcribed: 06/26/2008 23:04 AMK us History Conversion DIAGNOSTIC IMAGING ORDERABLES Final Result INTERFACE SYSTEM Refer to clinic/hospital department * US GUIDE NEEDLE PLACEMENT (06/20/2008 10:45 AM CDT) Anatomical Region Laterality Modality Other 06/20/2008 10:4 5 AM CDT Narrative 06/20/2008 5:17 PM CDT [facility] [address] [place], [place] [address] Admit Date: 06/20/2008 DUYEN OROSCO Sex: F Admit Prov: DOCTOR , NOT ONSTAFF Date: 1960 Primary Care Prov: CMRN: [id number] [facility] [address] [place] [address] IMAGING SERVICES Ordering Prov: N/A Accession Number: [id number] Interpretation Ultrasound-guided right -sided thyroid biopsy History : 47-year-old female with a right -sided thyroid nodule presents for biopsy Surgeon: Bob Mittal MD Medication : None Anesthesia: 1% lidocaine locally Informed written consent was obtained from the patient after explaining the procedure, benefits and risks (including but not limited to bleeding and infection). Procedure: Under direct ultrasound guidance 5 separate fine needle aspirates of a right -sided thyroid nodule were performed. The patient tolerated the procedure well. Impression: Ultrasound-guided right -sided thyroid nodule biopsy . Dictated by: BOB MITTAL 06/20/2008 17:14 Electronically signed by: BOB MITTAL 06/20/2008 17:15 Procedure Note Bbo Mittal MD - 06/20/2008 [place] [address] [place], [place] [address] Admit Date: 06/20/2008 DUYEN OROSCO Sex: F Admit Prov: DOCTOR , NOT ONSTAFF Date: 1960 Primary Care Prov: CMRN: [id number] [facility] [address] [place] [address] IMAGING SERVICES Ordering Prov: N/A Interpretation Ultrasound-guided right -sided thyroid biopsy History : 47-year-old female with a right -sided thyroid nodulepresents for biopsy Surgeon: Bob Mittal MD Medication : None Anesthesia: 1% lidocaine locally Informed written consent was obtained from the patient afterexplaining the procedure, benefits and risks (including but not limited to bleedingand infection). Procedure: Under direct ultrasound guidance 5 separate fine needle aspirates ofa right -sided thyroid nodule were performed. The patient toleratedthe procedure well. Impression: Ultrasound-guided right -sided thyroid nodule biopsy . Dictated by: BOB MITTAL 06/20/2008 17:14 Electronically signed by: BOB MITTAL 06/20/2008 17:15 us History Conversion US ORDERABLES Final Result * CYTOLOGY, NON GYNE (06/20/2008 10:30 AM CDT) PATHOLOGY/CYT OLOGY REPORT [address] [address] Patient: DUYEN OROSCO : 1960 Procedure Date: 06/20/2008 Accession Date: 06/20/2008 Case No: [id number] Ordering Dr: ERICA MCGOWAN ONSTAFF Case types AW, BW, FW, NW and SH are performed by [facility], [place], [place] SURGICAL PATHOLOGY & NON-GYNECOLOGIC CYTOPATHOLOGY REPORT DIAGNOSIS: THYROID, RIGHT, SMEAR AND CELL BLOCK EXAMINATION: - BENIGN CYST FLUID. Specimen Description: Right thyroid. Operative Procedure: Not stated. Patient Information/Histo ry/Diagnosis: Not stated. Gross: We receive one container with 25 cc reddish-colored fluid. The specimen is received in CytoLyt. A liquid-based monolayer smear and cell block are prepared. OZZY 06.21.2008 08:06 am Microscopic: The thyroid aspirate contains numerous macrophages, consistent with cystic degeneration of a nodule. No thyroid follicular epithelial cells are identified in the smear partition, and rare benign thyroid fragments are present in the cell block sections. OZZY 06.21.2008 08:06 am Staging Form: No ELECTRONIC SIGNATURE FOR RED LESLIE M.D.- 06/21/08 02:01 pm INTERFACE SYSTEM 06/20/2008 10:3 0 AM CDT us History Conversion PATHOLOGY/CYTOLOGY ORDERABLES Final Result INTERFACE SYSTEM Refer to clinic/hospital department documented in this encounter Visit Diagnoses Not on filedocumented in this encounter Additional Health Concerns Infection Onset Date Last Indicated Resolved Time R/O Respiratory 01/11/2023 01/11/2023 01/11/2023 7 :48 PM HORTICULTURALIST R/O Respiratory 02/19/2024 02/19/2024 02/19/2024 1 1:21 AM HORTICULTURALIST Influenza 02/19/2024 02/19/2024 02/26/2024 1:16 AM HORTICULTURALIST R/O Respiratory 03/13/2024 03/13/2024 03/13/2024 4 :20 PM HORTICULTURALIST Human Metapneumovirus 03/13/2024 03/13/20242024 1:16 AM HORTICULTURALIST R/O C. diff 03/13/2024 03/13/2024 03/14/2024 8:00 PM HORTICULTURALIST R/O C. diff 03/14/2024 03/14/2024 03/15/2024 6:17 PM HORTICULTURALIST documented as of this encounter Care Teams Eap Specialist Relationship Specialty Start Date End Date Juventino Howe MD [address] [facility] [address] [place] [address] PCP - General Internal Medicine 11/04/11 documented as of this encounter
--- OUTSIDE RECORDS SUMMARY | 2024-07-26 18:07 | XMS_ITS | Encounter Summary ---
Author Organization [facility] Address [address] [place] [address] Care Team Providers Care Recycling Sorter Name Role Phone Juventino Howe MD Primary Care Provider [phone] Encounter Details Date Type Department Care Team (Late Contact Info) Description 10/09/2008 Outpatient Historical [facility] Krista Altamirano MD [address] [facility] [address] [place] [address] Dysphagia, Unspecified Social History Tobacco Use Types Packs/Day Years Used Date Smoking Tobacco: Never Alcohol Use Standard Drinks/Week Comments No 0 (1 standard drink = 0.6 oz pur e alcohol) Comments No Sex and Gender Information Value Date Recorded Sex Assigned at Not on file Legal Sex Female 3:38 AM SNOWMOBILE MECHANIC Gender Identity Not on file Sexual Orientation Not on file documented as of this encounter Plan of Treatment Upcoming Encounters Date Type Department Care Team (Late Contact Info) Description 07/31/2024 5:00 PM CDT Appointment [facility] Therapy Services [address] [place] [address] Chandler Spivey PA [address] [place] [address] Maegan Duncan, Physical Therapist 08/02/2024 5:00 PM CDT Appointment [facility] Neuro Rehabilitation [place] [address] [place] [address] Jonathan Cortez MD [address] [facility] [address] [address] -x0 (Work) Sarah Estrada, SWITCH REPAIRER 08/09/2024 5:00 PM CDT Appointment [facility] [address] [facility] 145 [place] [address] Chandler Spivey PA [address] [facility] [address] [place] [address] Maegan Duncan, Physical Therapist 08/30/2024 3:30 PM CDT Office Visit [facility] Internal Medicine Medical [place] [facility] [address] [facility] [address] [address] Juventino Howe MD [address] [facility] [address] [place] [address] 10/31/2024 3:00 PM CDT Office Visit [facility] Pulmonology [facility] [address] [facility] [address] [place] [address] Everett Cam MD [address] [facility] [address] [place] [address] 12/28/2024 2:45 PM SNOWMOBILE MECHANIC Office Visit [facility] Endocrinology [address] [facility] [address] [place] [address] Sheldon Canales MD [address] [facility] [address] [place] [address] 02/26/2025 3:10 PM SNOWMOBILE MECHANIC Office Visit [facility] Gastroenterology [facility] [address] [facility] [address] [place] [address] Suzette Cody MD [address] [facility] 1200 [place] [address] documented as of this encounter Procedures Procedure Name Priority Date/Time Associated Diagnosis Comments PATHOLOGY Routine 10/09/2008 10:23 AM CDT documented in this encounter Results * PATHOLOGY (10/09/2008 10:23 AM CDT) FINAL REPORT [facility] [address] [facility] [place], [place] [address] Patient: DUYEN OROSCO : 1960 Procedure Date: 10/09/2008 Accession Date: 10/09/2008 Case No: [id number] Ordering Dr: KRISTA ALTAMIRANO Case type SW is performed by [place], [place]; all other case types are performed by [facility], [place], [place] SURGICAL PATHOLOGY & NON-GYNECOLOGIC CYTOPATHOLOGY REPORT DIAGNOSIS STOMACH, BIOPSY: - NO PATHOLOGIC DIAGNOSIS. Specimen Description: Gastric biopsy. Operative Procedure: EGD. Patient Information/Histo ry/Diagnosis: Gastritis. Gross: The specimen is received in a container labeled crissy Rosales. It consists of a single piece of hernandez tissue measuring 0.3 x 0.2 x 0.2 cm. The specimen is submitted entirely labeled A1. KLA/LKP 10.09.2008 06:07 pm Microscopic: The slides are labeled [id number] and Kwesi. The sections of the gastric biopsy show fundic-type gastric mucosa. The tissue is unremarkable. A significant inflammatory infiltrate is not seen, and organisms typical for Helicobacter pylori are not identified on H&E- stained sections. There is no evidence of malignancy. OJL/PHC 10.10.2008 01:18 pm Staging Form: No. ELECTRONIC SIGNATURE FOR RIVERA WEBSTER M.D.- 10/10/08 10:21 pm [facility] 10/09/2008 10:2 3 AM CDT Krista Altamirano MD PATHOLOGY/CYTOLOGY ORDERAB LES Final Result [facility] CLIA# [id number] [address] [place] [address] documented in this encounter Visit Diagnoses Diagnosis Dysphagia, unspecified(787.20) Dysphagia, unspecified documented in this encounter Additional Health Concerns Infection Onset Date Last Indicated Resolved Time R/O Respiratory 01/11/2023 01/11/2023 01/11/2023 7 :48 PM SNOWMOBILE MECHANIC R/O Respiratory 02/19/2024 02/19/2024 02/19/2024 1 1:21 AM SNOWMOBILE MECHANIC Influenza 02/19/2024 02/19/2024 02/26/2024 1:16 AM SNOWMOBILE MECHANIC R/O Respiratory 03/13/2024 03/13/2024 03/13/2024 4 :20 PM SNOWMOBILE MECHANIC Human Metapneumovirus 03/13/2024 03/13/20242024 1:16 AM SNOWMOBILE MECHANIC R/O C. diff 03/13/2024 03/13/2024 03/14/2024 8:00 PM SNOWMOBILE MECHANIC R/O C. diff 03/14/2024 03/14/2024 03/15/2024 6:17 PM SNOWMOBILE MECHANIC documented as of this encounter Care Teams Recycling Sorter Relationship Specialty Start Date End Date Juventino Howe MD [address] [place] [address] PCP - General Internal Medicine 11/04/11 documented as of this encounter
--- OUTSIDE RECORDS SUMMARY | 2024-07-26 18:07 | XMS_ITS | Encounter Summary ---
Author Organization [facility] Address [address] [place] [address] Care Team Providers Care Building Dismantler Name Role Phone Juventino Howe MD Primary Care Provider [phone] Encounter Details Date Type Department Care Team (Latest Contact Info) Description 03/26/[address] [facility] Lynne Navarro MD [address] [place] [address] Flatulence, Eructation, and Gas Pain Social History Tobacco Use Types Packs/Day Years Used Date Smoking Tobacco: Never Assessed Comments Unknown Sex and Gender Information Value Date Recorded Sex Assigned at Not on file Legal Sex Female 3:38 AM OCCUPATIONAL SAFETY SPECIALIST Gender Identity Not on file Sexual Orientation Not on file documented as of this encounter Plan of Treatment Upcoming Encounters Date Type Department Care Team (Late st Contact Info) Description 07/31/2024 5:00 PM CDT Appointment [facility] Therapy Services [address] [address] Chandler Spivey PA [address] [facility] [address] [place] [address] Maegan Duncan, Physical Therapist 08/02/2024 5:00 PM CDT Appointment [facility] Neuro Rehabilitation [place] [address] [place] [address] Jonathan Cortez MD [address] [facility] [address] [address] -x0 (Work) Sarah Estrada, PROFESSIONAL DEVELOPMENT INSTRUCTOR 08/09/2024 5:00 PM CDT Appointment [facility] [address] [facility] [address] [place] [address] Chandler Spivey PA [address] [facility] [address] [place] [address] Maegan Duncan, Physical Therapist 08/30/2024 3:30 PM CDT Office Visit [facility] Internal Medicine Medical [place] [facility] [address] [facility] [address] [address] Juventino Howe MD [address] [facility] [address] [place] [address] 10/31/2024 3:00 PM CDT Office Visit [facility] Pulmonology [facility] [address] [facility] [address] [place] [address] Everett Cam MD [address] [facility] [address] [place] [address] 12/28/2024 2:45 PM OCCUPATIONAL SAFETY SPECIALIST Office Visit [facility] Endocrinology [address] [facility] [address] [place] [address] Sheldon Canales MD [address] [facility] [address] [place] [address] 02/26/2025 3:10 PM OCCUPATIONAL SAFETY SPECIALIST Office Visit [facility] Gastroenterology [facility] [address] [facility] [address] [place] [address] Suzette Cody MD [address] [facility] [address] [place] [address] documented as of this encounter Visit Diagnoses Diagnosis Flatulence, eructation, and gas pain documented in this encounter Additional Health Concerns Infection Onset Date Last Indicated Resolved Time R/O Respiratory 01/11/2023 01/11/2023 01/11/2023 7 :48 PM OCCUPATIONAL SAFETY SPECIALIST R/O Respiratory 02/19/2024 02/19/2024 02/19/2024 1 1:21 AM OCCUPATIONAL SAFETY SPECIALIST Influenza 02/19/2024 02/19/2024 02/26/2024 1:16 AM OCCUPATIONAL SAFETY SPECIALIST R/O Respiratory 03/13/2024 03/13/2024 03/13/2024 4 :20 PM OCCUPATIONAL SAFETY SPECIALIST Human Metapneumovirus 03/13/2024 03/13/20242024 1:16 AM OCCUPATIONAL SAFETY SPECIALIST R/O C. diff 03/13/2024 03/13/2024 03/14/2024 8:00 PM OCCUPATIONAL SAFETY SPECIALIST R/O C. diff 03/14/2024 03/14/2024 03/15/2024 6:17 PM OCCUPATIONAL SAFETY SPECIALIST documented as of this encounter Care Teams Building Dismantler Relationship Specialty Start Date End Date Juventino Howe MD [address] [facility] [address] [place] [address] PCP - General Internal Medicine 11/04/11 documented as of this encounter
--- OUTSIDE RECORDS SUMMARY | 2024-07-26 18:07 | XMS_ITS | Encounter Summary ---
Author Organization [facility] Address [address] [place] [address] Care Team Providers Care Executive Director Contract Shop Name Role Phone Juventino Howe MD Primary Care Provider Encounter Details Date Type Department Care Team (Latest Contact Info) Description 06/14/2006 Outpatient Historical HIS [facility] Lynne Navarro MD [address] [place] [address] Unspecified Constipation (Primary Dx) Social History Tobacco Use Types Packs/Day Years Used Date Smoking Tobacco: Never Assessed Comments Unknown Sex and Gender Information Value Date Recorded Sex Assigned at Not on file Legal Sex Female 3:38 AM MARINE BIOLOGIST Gender Identity Not on file Sexual Orientation Not on file documented as of this encounter Plan of Treatment Upcoming Encounters Date Type Department Care Team (Late st Contact Info) Description 07/31/2024 5:00 PM CDT Appointment [facility] [address] [address] Chandler Spivey PA [address] [facility] [address] [place] [address] Maegan Duncan, Physical Therapist 08/02/2024 5:00 PM CDT Appointment [facility] Neuro Rehabilitation [place] [address] [facility] [place] [address] Jonathan Cortez MD [address] [facility] [address] [address] -x0 (Work) Sarah Estrada, CARRIAGE DOGGER 08/09/2024 5:00 PM CDT Appointment [facility] [address] [facility] [address] [place] [address] Chandler Spivey PA [address] [facility] [address] [place] [address] Maegan Duncan, Physical Therapist 08/30/2024 3:30 PM CDT Office Visit [facility] Internal Medicine Medical [place] A [facility] [address] [facility] [address] [address] Juventino Howe MD [address] [facility] [address] [place] [address] 10/31/2024 3:00 PM CDT Office Visit [facility] Pulmonology [facility] [address] [facility] [address] [place] [address] Everett Cam MD [address] [facility] [address] [place] [address] 12/28/2024 2:45 PM MARINE BIOLOGIST Office Visit [facility] Endocrinology [address] [facility] [address] [place] [address] Sheldon Canales MD [address] [facility] [address] [place] [address] 02/26/2025 3:10 PM MARINE BIOLOGIST Office Visit [facility] G[facility] [address] [facility] [address] [place] [address] Suzette Cody MD [address] [facility] [address] [place] [address] documented as of this encounter Visit Diagnoses Diagnosis Unspecified constipation- Primary documented in this encounter Additional Health Concerns Infection Onset Date Last Indicated Resolved Time R/O Respiratory 01/11/2023 01/11/2023 01/11/2023 7 :48 PM MARINE BIOLOGIST R/O Respiratory 02/19/2024 02/19/2024 02/19/2024 1 1:21 AM MARINE BIOLOGIST Influenza 02/19/2024 02/19/2024 02/26/2024 1:16 AM MARINE BIOLOGIST R/O Respiratory 03/13/2024 03/13/2024 03/13/2024 4 :20 PM MARINE BIOLOGIST Human Metapneumovirus 03/13/2024 03/13/20242024 1:16 AM MARINE BIOLOGIST R/O C. diff 03/13/2024 03/13/2024 03/14/2024 8:00 PM MARINE BIOLOGIST R/O C. diff 03/14/2024 03/14/2024 03/15/2024 6:17 PM MARINE BIOLOGIST documented as of this encounter Care Teams Executive Director Contract Shop Relationship Specialty Start Date End Date Juventino Howe MD [address] [facility] [address] [place] [address] PCP - General Internal Medicine 11/04/11 documented as of this encounter
--- OUTSIDE RECORDS SUMMARY | 2024-07-26 18:07 | XMS_ITS | Encounter Summary ---
Author Organization [facility] Address [address] [place] [address] Care Team Providers Care Manager Nc Name Role Phone Juventino Howe MD Primary Care Provider [phone] Encounter Details Date Type Department Care Team (Latest Contact Info) Description 08/27/2008 Outpatient Historical [facility] Timo Salas NP NO ADDRESS ON FILE Symptomatic Menopausal or Female Climacteric States Social History Tobacco Use Types Packs/Day Years Used Date Smoking Tobacco: Never Alcohol Use Standard Drinks/Week Comments No 0 (1 standard drink = 0.6 oz pur e alcohol) Comments No Sex and Gender Information Value Date Recorded Sex Assigned at Not on file Legal Sex Female 3:38 AM 1ST GRADE TEACHER Gender Identity Not on file Sexual Orientation Not on file documented as of this encounter Plan of Treatment Upcoming Encounters Date Type Department Care Team (Late st Contact Info) Description 07/31/2024 5:00 PM CDT Appointment [facility] Therapy Services [address] [place] [address] Chandler Spivey PA [address] [place] [address] Maegan Duncan, Physical Therapist 08/02/2024 5:00 PM CDT Appointment [facility] Neuro Rehabilitation [facility] [address] [facility] [place] [address] Jonathan Cortez MD [address] [facility] [address] [address]x0 (Work) Sarah Estrada, MEN'S LOCKER ROOM ATTENDANT 08/09/2024 5:00 PM CDT Appointment [facility] [place] [address] [facility] [address] [place] [address] Chandler Spivey PA [address] [facility] [address] [place] [address] Maegan Duncan, Physical Therapist 08/30/2024 3:30 PM CDT Office Visit [facility] Internal Medicine Medical [place] [address] [facility] [address] [address] Juventino Howe MD [address] [facility] [address] [place] [address] 10/31/2024 3:00 PM CDT Office Visit [facility] Pulmonology [facility] [address] [facility] [address] [place] [address] Everett Cam MD [address] [facility] [address] [place] [address] 12/28/2024 2:45 PM 1ST GRADE TEACHER Office Visit [facility] Endocrinology [address] [facility] [address] [place] [address] Sheldon Canales MD [address] [facility] [address] [place] [address] 02/26/2025 3:10 PM 1ST GRADE TEACHER Office Visit [facility] Gastroenterology [place] [address] [facility] [address] [place] [address] Suzette Cody MD [address] [facility] [address] [place] [address] documented as of this encounter Procedures Procedure Name Priority Date/Time Associated Diagnosis Comments XR DEXA BONE DENSITY AXIAL 1 OR MORE SITES Routine 08/27/2008 1:20 PM CDT Symptomatic Menopausal or Female Climacteric States documented in this encounter Results * XR DEXA BONE DENSITY AXIAL 1 OR MORE SITES (08/27/2008 1:20 PM CDT) Anatomical Region Laterality Modality Other 08/27/2008 1:20 PM CDT Narrative 08/27/2008 2:15 PM CDT [facility] [address] [place], [place] [address] Admit Date: 08/27/2008 DUYEN OROSCO Sex: F Admit Prov: TIMO SALAS Angela Date: 1960 Primary Care Prov: CMRN: [id number] Room: [facility] SSN: [id number] IMAGING SERVICES Ordering Prov: N/A Accession Number: [id number] Interpretation BONE MINERAL DENSITY (DEXA) HISTORY: 48 year old female with long-term steroid use needing evaluation for osteoporosis. PROCEDURE: Using a [employer] dual energy x-ray absorptiometry system, the patient's bone mineral density was measured over the lumbar spine and femurs. Comparison was made to age and sex matched normal values. FINDINGS: Lateral radiograph of the lumbar spine demonstrates no evidence of fracture. Lumbar Spine ( L1-L4) Bone Mineral Density = 1.029 gm/cm2 Compared to young adult (T-score), difference of -1.3 Standard Deviations. The patient's spine BMD is osteopenic when compared to that of a young adult. Left Femoral Neck Bone Mineral Density = 0.837 gm/cm2 Compared to young adult (T-score), difference of -1.4 Standard Deviations. The patient's left femoral neck BMD is osteopenic when compared to that of a young adult. Right Femoral Neck Bone Mineral Density = 0.844 gm/cm2 Compared to young adult (T-score), difference of -1.4 Standard Deviations. The patient's right femoral neck BMD is osteopenic when compared to that of a young adult. No prior DEXA studies are available for comparison. . Dictated by: GAY BUSH 08/27/2008 14:13 Electronically signed by: GAY BUSH 08/27/2008 14:14 Procedure Note Gay Bush, DO - 08/27/2008 [facility] [address] [place], [place] [address] Admit Date: 08/27/2008 DUYEN OROSCO Sex: F Admit Prov: ITMO SALAS Date: 1960 Primary Care Prov: CMRN: [id number] Room: [facility] SSN: [id number] IMAGING SERVICES Ordering Prov: N/A Interpretation BONE MINERAL DENSITY (DEXA) HISTORY: 48 year old female with long-term steroid use needing evaluationfor osteoporosis. PROCEDURE: Using a [employer] dual energy x-ray absorptiometry system, the patient's bone mineral density was measured over the lumbar spineand femurs. Comparison was made to age and sex matched normal values. FINDINGS: Lateral radiograph of the lumbar spine demonstrates no evidence of fracture. Lumbar Spine ( L1-L4) Bone Mineral Density = 1.029 gm/cm2 Compared to young adult (T-score), difference of -1.3Standard Deviations. The patient's spine BMD is osteopenic when compared to that of ayoung adult. Left Femoral Neck Bone Mineral Density = 0.837 gm/cm2 Compared to young adult (T-score), difference of -1.4Standard Deviations. The patient's left femoral neck BMD is osteopenic when compared tothat of a young adult. Right Femoral Neck Bone Mineral Density = 0.844 gm/cm2 Compared to young adult (T-score), difference of -1.4Standard Deviations. The patient's right femoral neck BMD is osteopenic when compared tothat of a young adult. No prior DEXA studies are available for comparison. . Dictated by: GAY BUSH 08/27/2008 14:13 Electronically signed by: GAY BUSH 08/27/2008 14:14 Timo Salas NP DIAGNOSTIC IMAGING ORDERABLES Fi nal Result documented in this encounter Visit Diagnoses Diagnosis Symptomatic menopausal or female climacteric states documented in this encounter Additional Health Concerns Infection Onset Date Last Indicated Resolved Time R/O Respiratory 01/11/2023 01/11/2023 01/11/2023 7 :48 PM 1ST GRADE TEACHER R/O Respiratory 02/19/2024 02/19/2024 02/19/2024 1 1:21 AM 1ST GRADE TEACHER Influenza 02/19/2024 02/19/2024 02/26/2024 1:16 AM 1ST GRADE TEACHER R/O Respiratory 03/13/2024 03/13/2024 03/13/2024 4 :20 PM 1ST GRADE TEACHER Human Metapneumovirus 03/13/2024 03/13/20242024 1:16 AM 1ST GRADE TEACHER R/O C. diff 03/13/2024 03/13/2024 03/14/2024 8:00 PM 1ST GRADE TEACHER R/O C. diff 03/14/2024 03/14/2024 03/15/2024 6:17 PM 1ST GRADE TEACHER documented as of this encounter Care Teams Manager Nc Relationship Specialty Start Date End Date Juventino Howe MD [address] [facility] [address] [place] [address] PCP - General Internal Medicine 11/04/11 documented as of this encounter
--- OUTSIDE RECORDS SUMMARY | 2024-07-26 18:07 | XMS_ITS | Encounter Summary ---
Author Organization [facility] Address [address] [place] [address] Care Team Providers Care Hog Handler Name Role Phone Juventino Howe MD Primary Care Provider [phone] Encounter Details Date Type Department Care Team (Late Contact Info) Description 09/15/2008 Outpatient Historical [facility] Lynne Escobar MD [address] [place] [address] Social History Tobacco Use Types Packs/Day Years Used Date Smoking Tobacco: Never Alcohol Use Standard Drinks/Week Comments No 0 (1 standard drink = 0.6 oz pur e alcohol) Comments No Sex and Gender Information Value Date Recorded Sex Assigned at Not on file Legal Sex Female 3:38 AM DISTRICT CAPTAIN Gender Identity Not on file Sexual Orientation Not on file documented as of this encounter Plan of Treatment Upcoming Encounters Date Type Department Care Team ([facility] Contact Info) Description 07/31/2024 5:00 PM CDT Appointment [facility] Therapy Services [address] [place] [address] Chandler Spivey PA [address] [place] [address] Maegan Duncan, Physical Therapist 08/02/2024 5:00 PM CDT Appointment [facility] Neuro Rehabilitation [place] [address] [facility] [place] [address] Jonathan Cortez MD [address] [facility] [address] [address]x0 (Work) Sarah Estrada, INSPECTOR HEALTH CARE FACILITIES 08/09/2024 5:00 PM CDT Appointment [facility] [address] [facility] [address] [place] [address] Chandler Spivey PA [address] [facility] [address] [place] [address] Maegan Duncan, Physical Therapist 08/30/2024 3:30 PM CDT Office Visit [facility] Internal Medicine Medical [place] A [facility] [address] [facility] [address] [address] Juventino Howe MD [address] [facility] [address] [place] [address] 10/31/2024 3:00 PM CDT Office Visit [facility] Pulmonology [facility] [address] [facility] [address] [place] [address] Everett Cam MD [address] [facility] [address] [place] [address] 12/28/2024 2:45 PM DISTRICT CAPTAIN Office Visit [facility] Endocrinology [address] [facility] [address] [place] [address] Sheldon Canales MD [address] [facility] [address] [place] [address] 02/26/2025 3:10 PM DISTRICT CAPTAIN Office Visit [facility] Gastroenterology [facility] [address] [facility] [address] [place] [address] Suzette Cody MD [address] [facility] [address] [place] [address] documented as of this encounter Visit Diagnoses Not on filedocumented in this encounter Additional Health Concerns Infection Onset Date Last Indicated Resolved Time R/O Respiratory 01/11/2023 01/11/2023 01/11/2023 7 :48 PM DISTRICT CAPTAIN R/O Respiratory 02/19/2024 02/19/2024 02/19/2024 1 1:21 AM DISTRICT CAPTAIN Influenza 02/19/2024 02/19/2024 02/26/2024 1:16 AM DISTRICT CAPTAIN R/O Respiratory 03/13/2024 03/13/2024 03/13/2024 4 :20 PM DISTRICT CAPTAIN Human Metapneumovirus 03/13/2024 03/13/20242024 1:16 AM DISTRICT CAPTAIN R/O C. diff 03/13/2024 03/13/2024 03/14/2024 8:00 PM DISTRICT CAPTAIN R/O C. diff 03/14/2024 03/14/2024 03/15/2024 6:17 PM DISTRICT CAPTAIN documented as of this encounter Care Teams Hog Handler Relationship Specialty Start Date End Date Juventino Howe MD [address] [facility] [address] [place] [address] PCP - General Internal Medicine 11/04/11 documented as of this encounter
--- OUTSIDE RECORDS SUMMARY | 2024-07-26 18:07 | XMS_ITS | Encounter Summary ---
Author Organization [employer] Address [address] [place] [address] Care Team Providers Care Bottle Booth Attendant Name Role Phone Juventino Howe MD Primary Care Provider [phone] Encounter Details Date Type Department Care Team (Late Contact Info) Description 07/10/2008 Outpatient Historical [facility] [place], Authorized P NO ADDRESS ON FILE Franklin Khan Jr., MD [address] [place] [address] Abdominal Pain, Other Specified Site; Other Acute Pain; Nausea Alone; Unspecified Constipation Social History Tobacco Use Types Packs/Day Years Used Date Smoking Tobacco: Never Alcohol Use Standard Drinks/Week Comments No 0 (1 standard drink = 0.6 oz pur e alcohol) Comments No Sex and Gender Information Value Date Recorded Sex Assigned at Not on file Legal Sex Female 3:38 AM 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 Gender Identity Not on file Sexual Orientation Not on file documented as of this encounter Plan of Treatment Upcoming Encounters Date Type Department Care Team (Late Contact Info) Description 07/31/2024 5:00 PM CDT Appointment [facility] Therapy Services [place] [address] [facility] [address] [place] [address] Chandler Spivye PA [address] [facility] [address] [place] [address] Maegan Duncan, Physical Therapist 08/02/2024 5:00 PM CDT Appointment [facility] Neuro Rehabilitation [place] [address] [place] [address] Jonathan Cortez MD [address] [facility] [address] [address] -x0 (Work) Sarah Estrada, SLITTING AND SHIPPING SUPERVISOR 08/09/2024 5:00 PM CDT Appointment [facility] [address] [facility] [address] [place] [address] Chandler Spivey PA [address] [facility] [address] [place] [address] Maegan Duncan, Physical Therapist 08/30/2024 3:30 PM CDT Office Visit [facility] Internal Medicine Medical [place] [facility] [address] [facility] [address] [address] Juventino Howe MD [address] [facility] [address] [place] [address] 10/31/2024 3:00 PM CDT Office Visit [facility] Pulmonology [facility] [address] [facility] [address] [place] [address] Everett Cam MD [address] [facility] [address] [place] [address] 12/28/2024 2:45 PM JET DYEING 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 Office Visit [facility] Endocrinology [address] [facility] [address] [place] [address] Sheldon Canales MD [address] [facility] [address] [place] [address] 02/26/2025 3:10 PM JET DYEING 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 Office Visit [facility] Gastroenterology [place] [address] [facility] [place] [address] [place] [address] Suzette Cody MD [address] [facility] [place] [address] [place] [address] documented as of this encounter Procedures Procedure Name Priority Date/Time Associated Diagnosis Comments CT ABDOMEN PELVIS W CONTRAST Routine 07/10/2008 7:23 PM CDT CBC WITH DIFFERENTIAL Stat 07/10/2008 6:11 PM CDT C-REACTIVE PROTEIN Stat 07/10/2008 6: 11 PM CDT LIPASE Stat 07/10/2008 6:11 PM CDT COMPREHENSIVE METABOLIC PANEL Stat 07/10/2008 6:11 PM CDT documented in this encounter Results * CT ABDOMEN PELVIS W CONTRAST (07/10/2008 7:23 PM CDT) Anatomical Region Laterality Modality Abdomen Other 07/10/2008 7:23 PM CDT Narrative 07/10/2008 8:44 PM CDT [facility] [address] [place], [place] [address] Admit Date: 07/10/2008 DUYEN OROSCO Sex: F Admit Prov: ER, AUTHORIZED P Date: 1960 Primary Care Prov: PCP, NONE CMRN: [id number] Room: ER-A SSN: [id number] IMAGING SERVICES Ordering Prov: N/A Accession Number: [id number] Interpretation COMPUTED TOMOGRAPHY EXAMINATION OF ABDOMEN AND PELVIS WITH INTRAVENOUS CONTRAST ADMINISTRATION 07/10/2008 History: Pelvic pain. Technique: Enhanced axial images of the abdomen and pelvis were obtained and compared to the examination from September 27, 2007. Findings: Since the previous examination, little change has occurred. Postoperative changes are again demonstrated within the right lower quadrant. The gallbladder has been surgically resected. No free intraperitoneal air or fluid are present. The kidneys demonstrate bilateral symmetric uptake and concentration of contrast. The liver and spleen enhance homogeneously. Visualized lung bases are clear. IMPRESSION: No convincing evidence of acute intra-abdominal process. Please read report. . Dictated by: BOB MITTAL 07/10/2008 19:45 Electronically signed by: BOB MITTAL 07/10/2008 20:42 Transcribed: 07/10/2008 19:51 SJ Procedure Note Bob Mittal MD - 07/10/2008 [facility] [address] [place], [place] [address] Admit Date: 07/10/2008 DUYEN OROSCO Sex: F Admit Prov: ER, AUTHORIZED P Date: 1960 Primary Care Prov: PCP, NONE CMRN: [id number] Room: ER-A SSN: [id number] IMAGING SERVICES Ordering Prov: N/A Interpretation COMPUTED TOMOGRAPHY EXAMINATION OF ABDOMEN AND PELVIS WITHINTRAVENOUS CONTRAST ADMINISTRATION 07/10/2008 History: Pelvic pain. Technique: Enhanced axial images of the abdomen and pelvis wereobtained and compared to the examination from September 27, 2007. Findings: Since the previous examination, little change hasoccurred. Postoperative changes are again demonstrated within the right lower quadrant. The gallbladder has been surgically resected. No free intraperitoneal air or fluid are present. The kidneys demonstratebilateral symmetric uptake and concentration of contrast. The liver andspleen enhance homogeneously. Visualized lung bases are clear. IMPRESSION: No convincing evidence of acute intra-abdominal process. Please read report. . Dictated by: BOB MITTAL 07/10/2008 19:45 Electronically signed by: BOB MITTAL 07/10/2008 20:42 Transcribed: 07/10/2008 19:51 SJ Franklin Khan Jr., MD CT ORDERABLES Final Resu lt * LIPASE (07/10/2008 6:11 PM CDT) LIPASE 44 13 - 60 U/L [facility] 07/10/2008 6:11 PM CDT 07/10/2008 6:19 PM CDT Franklin Khan Jr., MD CHEMISTRY ORDERABLES Final Result Performing Organization Address City/State/[facility] de Phone Number INTERFACE SYSTEM Refer to clinic/hospital department [facility] CLIA# [id number] [address] [place] [address] * C-REACTIVE PROTEIN (07/10/2008 6:11 PM CDT) [facility] CRP <0.2 0.0 - 0.8 mg/dL [facility] 07/10/2008 6:11 PM CDT 07/10/2008 6:19 PM CDT Franklin Khan Jr., MD CHEMISTRY ORDERABLES Final Result Performing Organization Address [facility] Phone Number INTERFACE SYSTEM Refer to clinic/hospital department [facility] CLIA# [id number] [address] [place] [address] * (ABNORMAL) COMPREHENSIVE METABOLIC PANEL (07/10/2008 6:11 PM CDT) [facility] CHLORIDE 103 96 - 108 mmol/L [facility] ALBUMIN 4.6 3.4 - 4.8 g/dL [facility] CREATININE 0.66 0.51 - 0.95 mg/dL [facility] SODIUM 141 135 - 145 mmol/L [facility] ALT 18 0 - 31 U/L [facility] ALKALINE PHOSPHATASE 124(H) 35 - 104 U/L [facility] BILIRUBIN TOTAL 0.4 0.2 - 1.0 mg/dL [facility] CO2 22 22 - 30 mmol/L [facility] TOTAL PROTEIN 7.3 6.3 - 8.6 g/dL [facility] POTASSIUM 3.6 3.5 - 4.9 mmol/L [facility] GLUCOSE 91 65 - 99 mg/dL [facility] AST 19 12 - 32 U/L [facility] BUN 5(L) 6 - 20 mg/dL [facility] CALCIUM 9.9 8.6 - 10.2 mg/dL [facility] GFR, >60 >=60 mL/min/1. 7 sq meter [facility] GFR >60 >=60 mL/min/1. 7 sq meter [facility] Comment: Modification of Diet in Renal Disease (MDRD) study formula. Estimated GFR rate interpretative information for both Americans and non- Americans is available on the [facility] Intranet at: [email or web address] Select: Lab Policies and Procedures Select: Reference Ranges - GFR 07/10/2008 6:11 PM CDT 07/10/2008 6:19 PM CDT Franklin Khan Jr., MD CHEMISTRY ORDERABLES Edite d INTERFACE SYSTEM Refer to clinic/hospital department [facility] CLIA# [id number] [address] [place] [address] * (ABNORMAL) CBC WITH DIFFERENTIAL (07/10/2008 6:11 PM CDT) RBC 4.74 3.90 - 4.90 M/uL [facility] MCHC 35.6(H) 31.5 - 35.5 % [facility] MCV 93.7 82.0 - 99.0 fL [facility] PLATELETS 319 140 - 350 K/uL [facility] HEMOGLOBIN 15.8(H) 11.8 - 14.8 g/dL [facility] RDW 13.1 11.5 - 14.5 % [facility] WBC 16.4(H) 4.0 - 9.8 K/uL [facility] MCH 33.3(H) 27.2 - 32.6 pg [facility] MPV 10.8 9.3 - 12.4 fL [facility] HEMATOCRIT 44.4(H) 35.5 - 44.0 % [facility] RDW-STDEV 45.3 37.1 - 48.7 fL [facility] MONOCYTES 5 3 - 13 % [facility] NEUTROPHILS 68 45 - 70 % [facility] NEUTROPHIL ABSOLUTE 11.11(H) 1.90 - 7.00 K/uL [facility] EOSINOPHIL ABSOLUTE 0.09 0.00 - 0.70 K/uL [facility] EOSINOPHILS 1 0 - 7 % [facility] LYMPHOCYTES 26 16 - 45 % [facility] LYMPHOCYTE ABSOLUTE 4.33 0.70 - 4.50 K/uL [facility] BASOPHILS ABSOLUTE 0.05 0.00 - 0.20 K/uL [facility] MONOCYTE ABSOLUTE 0.80 0.10 - 1.30 K/uL [facility] BASOPHILS 0 0 - 2 % [facility] 07/10/2008 6:11 PM CDT 07/10/2008 6:19 PM CDT Franklin Khan Jr., MD HEMATOLOGY ORDERABLES Edit ed INTERFACE SYSTEM Refer to clinic/hospital department [facility] CLIA# [id number] [address] [place] [address] documented in this encounter Visit Diagnoses Diagnosis Abdominal pain, other specified site Other acute pain Nausea alone Unspecified constipation documented in this encounter Additional Health Concerns Infection Onset Date Last Indicated Resolved Time R/O Respiratory 01/11/2023 01/11/2023 01/11/2023 7 :48 PM JET DYEING 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 R/O Respiratory 02/19/2024 02/19/2024 02/19/2024 1 1:21 AM JET DYEING 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 Influenza 02/19/2024 02/19/2024 02/26/2024 1:16 AM JET DYEING 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 R/O Respiratory 03/13/2024 03/13/2024 03/13/2024 4 :20 PM JET DYEING 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 Human Metapneumovirus 03/13/2024 03/13/20242024 1:16 AM JET DYEING 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 R/O C. diff 03/13/2024 03/13/2024 03/14/2024 8:00 PM JET DYEING 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 R/O C. diff 03/14/2024 03/14/2024 03/15/2024 6:17 PM JET DYEING 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 documented as of this encounter Care Teams Bottle Booth Attendant Relationship Specialty Start Date End Date Juventino Howe MD [address] [facility] [address] [place] [address] PCP - General Internal Medicine 11/04/11 documented as of this encounter
--- OUTSIDE RECORDS SUMMARY | 2024-07-26 18:07 | XMS_ITS | Encounter Summary ---
Author Organization [facility] Address [address] [place] [address] Care Team Providers Care Pharmacy Technician Instructor Name Role Phone Juventino Howe MD Primary Care Provider [phone] Encounter Details Date Type Department Care Team (Latest Contact Info) Description 08/24/2008 Outpatient Historical [facility], [address] Sheldon Canales MD [address] [facility] [address] [place] [address] Nontoxic Uninodular Goiter Social History Tobacco Use Types Packs/Day Years Used Date Smoking Tobacco: Never Alcohol Use Standard Drinks/Week Comments No 0 (1 standard drink = 0.6 oz pur e alcohol) Comments No Sex and Gender Information Value Date Recorded Sex Assigned at Not on file Legal Sex Female 3:38 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 Gender Identity Not on file Sexual Orientation Not on file documented as of this encounter Plan of Treatment Upcoming Encounters Date Type Department Care Team (Late st Contact Info) Description 07/31/2024 5:00 PM CDT Appointment [facility] Therapy Services [place] [address] [facility] [address] [place] [address] Chandler Spivey PA [address] [facility] [address] [place] [address] Maegan Duncan, Physical Therapist 08/02/2024 5:00 PM CDT Appointment [facility] Neuro Rehabilitation [place] [address] [place] [address] Jonathan Cortez MD [address] [facility] [address] [address] -x0 (Work) Sarah Estrada, CHANGE DIRECTOR 08/09/2024 5:00 PM CDT Appointment [facility] Services [place] [address] [facility] [address] [place] [address] Chandler Spivey PA [address] [facility] [address] [place] [address] Maegan Duncan, Physical Therapist 08/30/2024 3:30 PM CDT Office Visit [facility] Internal Medicine Medical [place] [facility] [address] [facility] [address] [address] Juventino Howe MD [address] [facility] [address] [place] [address] 10/31/2024 3:00 PM CDT Office Visit [facility] Pulmonology [facility] [address] [facility] [address] [place] [address] Everett Cam MD [address] [facility] [address] [place] [address] 12/28/2024 2:45 PM 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 ENGINEER Office Visit [facility] Endocrinology [address] [facility] [address] [place] [address] Sheldon Canales MD [address] [facility] [address] [place] [address] 02/26/2025 3:10 PM 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 ENGINEER Office Visit [facility] Gastroenterology [facility] [address] [facility] [address] [place] [address] Suzette Cody MD [address] [facility] [address] [place] [address] documented as of this encounter Visit Diagnoses Diagnosis Nontoxic uninodular goiter documented in this encounter Additional Health Concerns Infection Onset Date Last Indicated Resolved Time R/O Respiratory 01/11/2023 01/11/2023 01/11/2023 7 :48 PM 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 ENGINEER R/O Respiratory 02/19/2024 02/19/2024 02/19/2024 1 1:21 AM 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 ENGINEER Influenza 02/19/2024 02/19/2024 02/26/2024 1:16 AM 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 ENGINEER R/O Respiratory 03/13/2024 03/13/2024 03/13/2024 4 :20 PM 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 ENGINEER Human Metapneumovirus 03/13/2024 03/13/20242024 1:16 AM 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 ENGINEER R/O C. diff 03/13/2024 03/13/2024 03/14/2024 8:00 PM 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 ENGINEER R/O C. diff 03/14/2024 03/14/2024 03/15/2024 6:17 PM 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 ENGINEER documented as of this encounter Care Teams Pharmacy Technician Instructor Relationship Specialty Start Date End Date Juventino Howe MD [address] [facility] [address] [place] [address] PCP - General Internal Medicine 11/04/11 documented as of this encounter
--- OUTSIDE RECORDS SUMMARY | 2024-07-26 18:07 | XMS_ITS | Encounter Summary ---
Author Organization [facility] Address [address] [place] [address] Care Team Providers Care Assistant Manager Pt Name Role Phone Juventino Howe MD Primary Care Provider [phone] Encounter Details Date Type Department Care Team (Latest Contact Info) Description 06/06/2008 Outpatient Historical [facility] Lynne Navarro MD [address] [place] [address] Unspecified Disorder of Thyroid Social History Tobacco Use Types Packs/Day Years Used Date Smoking Tobacco: Never Assessed Comments Unknown Sex and Gender Information Value Date Recorded Sex Assigned at Not on file Legal Sex Female 3:38 AM SEROLOGIST Gender Identity Not on file Sexual Orientation Not on file documented as of this encounter Plan of Treatment Upcoming Encounters Date Type Department Care Team (Late st Contact Info) Description 07/31/2024 5:00 PM CDT Appointment [facility] [address] [address] Chandler Spivey PA [address] [facility] [address] [place] [address] Maegan Duncan, Physical Therapist 08/02/2024 5:00 PM CDT Appointment [facility] [place] [address] [place] [address] Jonathan Cortez MD [address] [facility] [address] [address] -x0 (Work) Sarah Estrada, RELIEF MATE 08/09/2024 5:00 PM CDT Appointment [facility] [address] [facility] [address] [place] [address] Chandler Spivey PA [address] [facility] [address] [place] [address] Maegan Duncan, Physical Therapist 08/30/2024 3:30 PM CDT Office Visit [facility] Internal Medicine Medical [place] [facility] [address] [facility] [address] [address] Juventino Howe MD [address] [facility] [address] [place] [address] 10/31/2024 3:00 PM CDT Office Visit [facility] Pulmonology [facility] [address] [facility] [address] [place] [address] Everett Cam MD [address] [facility] [address] [place] [address] 12/28/2024 2:45 PM SEROLOGIST Office Visit [facility] Endocrinology [address] [facility] [address] [place] [address] Sheldon Canales MD [address] [facility] [address] [place] [address] 02/26/2025 3:10 PM SEROLOGIST Office Visit [facility] Gastroenter[facility] [place] [address] [facility] [place] [address] [place] [address] Suzette Cody MD [address] [facility] [place] [address] [place] [address] documented as of this encounter Procedures Procedure Name Priority Date/Time Associated Diagnosis Comments VITAMIN D 25 HYDROXY Routine 06/06/2008 7:40 AM CDT documented in this encounter Results * VITAMIN D 25 HYDROXY (06/06/2008 7:40 AM CDT) VITAMIN D, 25 OH, D2 51 ng/mL [facility] VITAMIN D, 25 OH, D3 10 ng/mL [facility] Comment: 25-OHD3 indicates both endogenous production and supplementation. 25-OHD2 is an indicator of exogenous sources such as diet or supplementation. Therapy is based on measurement of Total 25-OHD, with levels <20 ng/mL indicative of Vitamin D deficiency while levels between 20 ng/mL and 30 ng/mL suggest insufficiency. Optimal levels are >30 ng/mL. Lab test performed by: [facility] [address] [place] [id number] [address] GAY UGALDE VITAMIN D, 25 OH, TOTAL 61 20 - 100 ng/mL [facility] Blood specimen (specimen) 06/06/2008 7:40 AM CDT 06/06/2008 8:05 AM CDT us Lynne Escobar MD CHEMISTRY ORDERABLES Final Resu lt INTERFACE SYSTEM Refer to clinic/hospital department [facility] CLIA# [id number] [address] [place] [address] documented in this encounter Visit Diagnoses Diagnosis Unspecified disorder of thyroid documented in this encounter Additional Health Concerns Infection Onset Date Last Indicated Resolved Time R/O Respiratory 01/11/2023 01/11/2023 01/11/2023 7 :48 PM SEROLOGIST R/O Respiratory 02/19/2024 02/19/2024 02/19/2024 1 1:21 AM SEROLOGIST Influenza 02/19/2024 02/19/2024 02/26/2024 1:16 AM SEROLOGIST R/O Respiratory 03/13/2024 03/13/2024 03/13/2024 4 :20 PM SEROLOGIST Human Metapneumovirus 03/13/2024 03/13/20242024 1:16 AM SEROLOGIST R/O C. diff 03/13/2024 03/13/2024 03/14/2024 8:00 PM SEROLOGIST R/O C. diff 03/14/2024 03/14/2024 03/15/2024 6:17 PM SEROLOGIST documented as of this encounter Care Teams Assistant Manager Pt Relationship Specialty Start Date End Date Juventino Howe MD [address] [facility] [address] [place] [address] PCP - General Internal Medicine 11/04/11 documented as of this encounter
--- OUTSIDE RECORDS SUMMARY | 2024-07-26 18:07 | XMS_ITS | Data Portability ---
Author Organization [facility] [employer], Main Office Address [address] [place] [address] Care Team Providers Care Music Publisher Name Role Phone ABISAI BARBOUR Primary Care Provider [phone] ABISAI BARBOUR Referring Provider Assessment No assessment recorded. Plan of Treatment Reminders Order Date Submit Date Provider Last Modified By Organization Details Last Modified Time Details Appointments None recorded. Lab phosphorus, serum or plasma 2022 023 [employer] [facility], [address] [place], [address], 3 16:46:19 vitamin D, 25-hydroxy, total, serum 2022 023 [employer] [facility], [facility] [place], [address], 3 16:46:24 CMP, serum or plasma 2022 023 [employer] [facility], [facility] [place] [place], [address], 3 16:46:20 PTH (parathyroi d hormone), intact + calcium, serum or plasma 2022 023 [employer] [facility], [facility] [place] [place], [address], 3 16:46:18 calcium/cre atinine, ratio, 24h urine 2022 023 [employer] [facility], [address] [place], [address], 3 18:24:41 vitamin B12 + folate, serum or blood 2022 [address] [employer] [address] [place], [address], 3 16:46:23 TSH + free T4, serum [address] [place], [address], 3 16:46:25 T3, free, serum or plasma 20[address] [place], [address], 3 16:46:23 thyroid peroxidase (tpo) Ab, serum 20[address] [place], [address], 3 16:46:22 iron + total iron-bindin g capacity (TIBC), serum 20[address] [place], [address], 3 16:46:20 COLTON (antinuclea r antibodies) screen, ifa, serum 20[address] [place], [address], 3 16:46:21 Referral None recorded. Procedures fine needle aspiration, ultrasound guided, thyroid (PROC) - please stain for parathyroid adenoma vs cancerous thyroid tissue; she has osteoporosi s and questionabl e parathyroid adenoma thank you 2022 023 [employer] (Radiology), [address] [facility] [place], [address], 3 17:14:06 Surgeries None recorded. Imaging US, thyroid 2022 05 023 [facility] (Radiology), 1 [facility] , [place], [address], 3 16:09:17 Medication Orders None recorded. Patient [...] ----- -- Constanza l Parat hyroi d Constanaz l Constanza l Hypop amie yroid ism Low or Low Constanza l Low Hyper parat hyroi dism Prima ry Constanza l or High High Secon weston High Constanza l or Low Terti bryan High High Non-P amie yroid Hyper calce fabi Low or Low Constanza l High Not Available [employer] [address] [address] [place], [address], 06/30/2022 16:46:18 06/28/19 23 06/30/2022 PTH, INTAC T (ICMA ) AND IONIZ ED CALCI UM calcium 9.8 mg/dL 8.6-10 .4 normal Not Available [facility] [address] [address] [place], [address], 06/30/2022 16:46:18 06/28/19 23 06/30/2022 PTH, INTAC T (ICMA ) AND IONIZ ED CALCI UM calcium, ionized 5.0 mg/dL 4.7-5. 5 normal Not Available [facility] [address] [place], [address], 06/30/2022 16:46:18 06/28/19 23 06/30/2022 PHOSP HATE ( PHOSP HORUS ) phosphate ( phosphorus) 3.8 mg/dL 2.5-4. 5 normal Not Available [address], [address], 06/30/2022 16:46:19 06/28/19 23 06/30/2022 IRON AND TOTAL IRON JENNIFER NG CAPAC ITY iron, total 137 mcg/d L 45-160 normal Not Available [address], [address], 06/30/2022 16:46:20 06/28/19 23 06/30/2022 IRON AND TOTAL IRON JENNIFER NG CAPAC ITY iron binding capacity 341 mcg/d L_(ca lc) 250-45 0 normal Not Available [address], [address], 06/30/2022 16:46:20 06/28/19 23 06/30/2022 IRON AND TOTAL IRON JENNIFER NG CAPAC ITY % saturation 40 %_(ca lc) 16-45 normal Not Available [address], [address], 06/30/2022 16:46:20 06/28/19 23 06/30/2022 COMPR EHENS RAMOS METAB OLIC PANEL glucose 77 mg/dL 65-99 normal Fasti ng refer ence inter víctor Not Available [address], [address], 06/30/2022 16:46:20 06/28/19 23 06/30/2022 COMPR EHENS RAMOS METAB OLIC PANEL urea nitrogen (BUN) 13 mg/dL 7-25 normal Not Available [address], [address], 06/30/2022 16:46:20 06/28/19 23 06/30/2022 COMPR EHENS RAMOS METAB OLIC PANEL creatinine 0.85 mg/dL 0.50-1 .05 normal Not Available [address], [address], 06/30/2022 16:46:20 06/28/19 23 06/30/2022 COMPR EHENS [...] kdoqi /gfr% 5Fcal culat or Not Available [address], [address], 06/30/2022 16:46:20 06/28/19 23 06/30/2022 COMPR EHENS RAMOS METAB OLIC PANEL BUN/creatini ne ratio NOT APPLIC ABLE (calc ) 6-22 Not Available [address], [address], 06/30/2022 16:46:20 06/28/19 23 06/30/2022 COMPR EHENS RAMOS METAB OLIC PANEL sodium 142 mmol/ L 135-14 6 normal Not Available [address], [address], 06/30/2022 16:46:20 06/28/19 23 06/30/2022 COMPR EHENS RAMOS METAB OLIC PANEL potassium 4.0 mmol/ L 3.5-5. 3 normal Not Available [address], [address], 06/30/2022 16:46:20 06/28/19 23 06/30/2022 COMPR EHENS RAMOS METAB OLIC PANEL chloride 105 mmol/ L 98-110 normal Not Available [address], [address], 06/30/2022 16:46:20 06/28/19 23 06/30/2022 COMPR EHENS RAMOS METAB OLIC PANEL carbon dioxide 26 mmol/ L 20-32 normal Not Available [address], [address], 06/30/2022 16:46:20 06/28/19 23 06/30/2022 COMPR EHENS RAMOS METAB OLIC PANEL calcium 9.8 mg/dL 8.6-10 .4 normal Not Available [address], [address], 06/30/2022 16:46:20 06/28/19 23 06/30/2022 COMPR EHENS RAMOS METAB OLIC PANEL protein, total 6.7 g/dL 6.1-8. 1 normal Not Available [address], [address], 06/30/2022 16:46:20 06/28/19 23 06/30/2022 COMPR EHENS RAMOS METAB OLIC PANEL albumin 4.5 g/dL 3.6-5. 1 normal Not Available [address], [address], 06/30/2022 16:46:20 06/28/19 23 06/30/2022 COMPR EHENS RAMOS METAB OLIC PANEL globulin 2.2 g/dL_ (calc ) 1.9-3. 7 normal Not Available [address], [address], 06/30/2022 16:46:20 06/28/19 23 06/30/2022 COMPR EHENS RAMOS METAB OLIC PANEL albumin/glob ulin ratio 2.0 (calc ) 1.0-2. 5 normal Not Available [address], [address], 06/30/2022 16:46:20 06/28/19 23 06/30/2022 COMPR EHENS RAMOS METAB OLIC PANEL bilirubin, total 0.9 mg/dL 0.2-1. 2 normal Not Available [address] [address] [place], [address], 06/30/2022 16:46:20 06/28/19 23 06/30/2022 COMPR EHENS RAMOS METAB OLIC PANEL alkaline phosphatase 71 U/L 37-153 normal Not Available [address] [address] [place], [address], 06/30/2022 16:46:20 06/28/19 23 06/30/2022 COMPR EHENS RAMOS METAB OLIC PANEL AST 16 U/L 10-35 normal Not Available [address], [address], 06/30/2022 16:46:20 06/28/19 23 06/30/2022 COMPR EHENS RAMOS METAB OLIC PANEL ALT 18 U/L 6-29 normal Not Available [address] [address] [place], [address], 06/30/2022 16:46:20 06/28/19 23 06/30/2022 COLTON SCR, [...] Patte rns (http s://d oi.or g/10. 1515/ [facility]- 2017- 0052) For addit ional infor leslie pham refer to http: //abby Kingston stDia gnost ics.c om/fa q/FAQ 177 (This link is being provi ded for infor hany zuniga/ educa akhil l purpo ses only. ) Not Available [address] [place], [address], 06/30/2022 16:46:21 06/28/19 23 06/30/2022 COLTON SCR, IFA, W/REF L TITER /ROMAN PARAG/R HEUMA TOID ARTHR ITIS PANEL 1 rheumatoid factor <14 IU/mL <14 normal Not Available [employer] [address] [address] [place], [address], 06/30/2022 16:46:21 06/28/19 23 06/30/2022 COLTON SCR, IFA, W/REF L TITER /ROMAN PARAG/R HEUMA TOID ARTHR ITIS PANEL 1 cyclic citrullinate d peptide (ccp) Ab (IgG) <16 units normal Refer ence Range Negat rmaos: <20 Weak Posit ramos: 20-39 Moder ate Posit ramos: 40-59 Stron g Posit ramos: >59 Not Available [employer] [address] [place], [address], 06/30/2022 16:46:21 06/28/19 23 06/30/2022 COLTON SCR, IFA, W/REF L TITER /ROMAN PARAG/R HEUMA TOID ARTHR ITIS PANEL 1 interpretati on There is no serol ogic evide nce for rheum atoid arthr itis. The RF and CCP tests each have a sensi tivit y for estab lishe d rheum atoid arthr itis of appro ximat rosanna 65-70 %. Not Available [facility] [address] [address] [place], [address], 06/30/2022 16:46:21 06/28/19 23 06/30/2022 THYRO ID PEROX IDASE ANTIB ODIES thyroid peroxidase antibodies <1 IU/mL <9 Not Available [address], [address], 06/30/2022 16:46:22 06/28/19 23 06/30/2022 VITAM IN B12/F OLATE , SERUM PANEL vitamin B12 507 pg/mL 200-11 00 normal Not Available [address], [address], 06/30/2022 16:46:22 06/28/19 23 06/30/2022 VITAM IN B12/F OLATE , SERUM PANEL folate, serum 6.0 NG/mL normal Refer ence Range Low: <3.4 Borde rline : 3.4-5 .4 Constanza l: >5.4 Not Available [address], [address], 06/30/2022 16:46:22 06/28/19 23 06/30/2022 T3, FREE T3, free 2.9 pg/mL 2.3-4. 2 normal Not Available [address], [address], 06/30/2022 16:46:23 06/28/19 23 06/30/2022 VITAM IN [...] /MS is recom ben d: order code 43047 (deneen ents >2yrs ). See Note 1 Note 1 For addit ional infor leslie pham refer to http: //abby walton ics.c om/fa q/FAQ 199 (This link is being provi ded for infor hany zuniga/ milena sykes purpo ses only. ) Not Available [address], [address], 06/30/2022 16:46:24 06/28/19 23 06/30/2022 TSH+F REE T4 TSH 1.55 mIU/L 0.40-4 .50 normal Not Available [address], [address], 06/30/2022 16:46:25 06/28/19 23 06/30/2022 TSH+F REE T4 T4, free 1.2 NG/dL 0.8-1. 8 normal Not Available [address], [address], 06/30/2022 16:46:25 07/04/19 23 07/04/2022 CALCI UM, 24 HOUR URINE (W/ CREAT ININE ) calcium/crea tinine ratio 76 mg/g_ creat 30-275 normal Not Available [address], [address], 07/04/2022 18:24:40 07/04/19 23 07/04/2022 CALCI UM, 24 HOUR URINE (W/ CREAT ININE ) calcium, 24 hour urine 84 mg/24 _h normal Refer ence Range 35-25 0 Low calci um diet 35-20 0 Not Available [address], [address], 07/04/2022 18:24:40 07/04/19 23 07/04/2022 CALCI UM, 24 HOUR URINE (W/ CREAT ININE ) creatinine, 24 hour urine 1.11 g/24_ h 0.50-2 .15 normal Not Available [facility] [address] [address], [place], [address], 07/04/2022 18:24:40 08/03/19 23 07/30/2022 US, thyro id No observ ation record ed. [email or web address] [facility] [address], [place], [address], 08/13/2022 21:41:36 09/25/1909/24/2022 fine needl e aspir ation , ultra sound guide d, thyro id (PROC ) No observ ation record ed. [email or web address] [facility] [address], [place], [address], 09/25/2022 20:22:57 Result Notes None recorded. Problems Name Problem SNOMED Code Status Onset Date Resolution Date Notes Provider Name and Address Organization Details Recorded Time Hyperparathyro idism 72697482 Active 2022 MD John Sarabia, [address], [place], [address], [email or web address] [facility] [employer] 3 16:58:14 Fatigue 52555312 Active 2022 MD John Sarabia, [address], [place], [address], [employer] 3 16:58:43 Thyroid nodule 760195079 Active 2022 MD Jhon Sarabia [address], [place], [address], [employer] 3 17:02:51 Secondary hyperparathyro idism 22807130 Active 2022 MD John Sarabia [address], [place], [address], [email or web address] [facility] [employer] 3 16:14:27 Multinodular goiter 333947278 Active 2022 MD John Sarabia [address], [address], [facility] 3 16:14:31 Problem Notes None recorded. Medical Equipment None Reported. Allergies Allergen ID Allergen Name Allergen Category Reaction Reaction Severity Criticality Documentation Date Start Date Code Code System Note Provider Name and Address Organization Details Recorded Time 22776 Rocephin medicatio n Not available Not available Not available 06/23/2022 9449 RxNorm Kamryn Louvier, RMA null, [place] [facility] 3 16:42:15 03511 aspirin medicatio n Not available Not available Not available 06/23/2022 1191 RxNorm Kamryn Louvier, RMA null, [place] [facility] 3 16:42:26 [address]343 lidocaine medicatio n Not available Not available Not available 06/23/2022 6387 RxNorm Kamryn Louvier, RMA null, [place] [facility] 3 16:42:38 25869 morphine medicatio n Not available Not available Not available 08/27/2022 7052 RxNorm Wendie Melba, RMA null, [place] [facility] 3 15:56:13 Medications Name Sig Start Date Stop [...] Address Organization Details Last Updated DateTime 3 25184.1 g 76 /min 97.1 [degF] 18 /min 105 mm[Hg] 63 mm[Hg] Kamryn Chaudharystefanysuma [facility] [employer] 3 16:41:47 Date Recorded Body weight Body temperature Heart rate Systolic blood pressure Diastolic blood pressure Provider Name and Address Organization Details Last Updated DateTime 08/27/2022 97299.8 8 g 97.3 [degF] 94 /min 115 mm[Hg] 66 mm[Hg] Wendie Chenn [facility] [employer] 3 15:55:55 Social History None recorded. Functional [...] SNOMED-CT Code Diagnosis ICD10 Code Diagnosis Note [id number] Shea Luciano MD [facility] [place] [address] [place] [address] 06/23/2022 15:45:10 06/23/2022 17:11:40 Hyperparathyroidism 00295752 E21.3 I need an up to date [...] to where we can review this. Fatigue 50323315 R53.83 Will send for thyroid antibodies to screen for autoimmune thyroid disease in addition to CBC, CMP, ferritin, COLTON/rheuma toid factor and B12/folate to screen for other potential secondary causes of fatigue. Thyroid nodule 560738450 E04.1 Send for repeat thyroid u/s to [...] informatio n in the electronic health record, independen tly interpreti ng results and communicat ing results to the patient. RTC in 3-4 months. Patient was provided a handwritte n lab order which contains our fax number. If she chooses to go outside of the [facility] system to obtain labwork she was [...] ing. Thank you for this consultati on. [id number] Shea Luciano MD [facility] [place] [address] [place] [address] 08/27/2022 15:45:54 08/27/2022 16:25:16 Secondary hyperparathyroidism 61061018 E21.1 Upon review of previous labwork patient [...] calcium are respective ly normal. Multinodular goiter 2375 99762 E04.2 Due to finding of her nodules would recommend she undergo u/s guided FNA of her dominant right nodules as this might be parathyroi d adenoma/un likely and most importantl y we need to rule out possibilit y of cancerous thyroid tissue. Patient would prefer to go to [facility]-o rders placed and patient aware to schedule soon [...] informatio n in the electronic health record, independen tly interpreti ng results and communicat ing results [...] Crandall Member ID Guarantor Name 06/23/2022 1 [employer] [id number] 4 Duyen Orosco [id number] 71 Duyen Orosco 08/27/2022 1 [place] [id number] 4 Duyen Orosco [id number] 71 Duyen Orosco Notes Date Note Type Note Provider Name and Address Organization Details Recorded Time 3 text/html 61 yo female comes in as referral by courtesy of Yojana Amador [employer] for evaluation of hyperparathyroidism in setting of fatigue and osteoporosis. ironically CMP not sent so I do not have a calcium or renal function to assess feedback response. PTH 94 pg/ML isolated She has hx of osteoporosis-she was diagnosed recently within last 6 months. She was seeing and nader Guevara at [place] but surgery and treatment was not recommended so patient seeking second opinion. She has low blood pressure and a little higher than her normal. She is recently 115/77 mmHg. She does have some dizziness and feeling off balance. She does have some cervical OA and inflammation. She has no issues with kidney stones or broken bones. Shea Luciano MD [address] [facility], [address] [address], [place], [address], [place] - [facility] [employer] 06/23/2022 22:23:18 3 text/html 62 yo female [...] ng/mlcalcium 9.8 mg/dL Shea Luciano MD [address] [facility], [facility] [address], [place], [address], [place] [facility] [place] [employer] [facility] 08/27/2022 16:22:45 OBGyn Episode No OBEpisode recorded.
--- OUTSIDE RECORDS SUMMARY | 2024-07-26 18:07 | XMS_ITS | Encounter Summary ---
Author Organization [facility] Address [address] [place] [address] Care Team Providers Care Risk Manager Name Role Phone Juventino Howe MD Primary Care Provider [phone] Encounter Details Date Type Department Care Team (Late st Contact Info) Description 05/10/2008 Outpatient Historical [facility] Lynne Escobar MD [address] [place] [address] Social History Tobacco Use Types Packs/Day Years Used Date Smoking Tobacco: Never Assessed Comments Unknown Sex and Gender Information Value Date Recorded Sex Assigned at Not on file Legal Sex Female 3:38 AM SOFTWARE SECURITY ARCHITECT Gender Identity Not on file Sexual Orientation Not on file documented as of this encounter Plan of Treatment Upcoming Encounters Date Type Department Care Team (Late st Contact Info) Description 07/31/2024 5:00 PM CDT Appointment [facility] Therapy [address] [address] Chandler Spivey PA [address] [facility] [address] [place] [address] Maegan Duncan, Physical Therapist 08/02/2024 5:00 PM CDT Appointment [facility] Neuro Rehabilitation [facility] [address] [facility] [place] [address] Jonathan Cortez MD [address] [facility] [address] [address] -x4 (Work) Sarah Estrada, RYAN 08/09/2024 5:00 PM CDT Appointment [facility] [place] [address] [place] [address] Chandler Spivey PA [address] [facility] [address] [place] [address] Maegan Duncan, Physical Therapist 08/30/2024 3:30 PM CDT Office Visit [facility] Internal Medicine [facility] [place] [address] [address] Juventino Howe MD [address] [facility] [address] [place] [address] 10/31/2024 3:00 PM CDT Office Visit [facility] Pulmonology [facility] [address] [place] [address] Everett Cam MD [address] [facility] [place] [address] 12/28/2024 2:45 PM SOFTWARE SECURITY ARCHITECT Office Visit [facility] Endocrinology [address] [place] [address] Sheldon Canales MD [address] [place] [address] 02/26/2025 3:10 PM SOFTWARE SECURITY ARCHITECT Office Visit [facility] Gastroenterology [facility] [address] [place] [address] Suzette Cody MD [address] [place] [address] documented as of this encounter Visit Diagnoses Not on filedocumented in this encounter Additional Health Concerns Infection Onset Date Last Indicated Resolved Time R/O Respiratory 01/11/2023 01/11/2023 01/11/2023 7 :48 PM SOFTWARE SECURITY ARCHITECT R/O Respiratory 02/19/2024 02/19/2024 02/19/2024 1 1:21 AM SOFTWARE SECURITY ARCHITECT Influenza 02/19/2024 02/19/2024 02/26/2024 1:16 AM SOFTWARE SECURITY ARCHITECT R/O Respiratory 03/13/2024 03/13/2024 03/13/2024 4 :20 PM SOFTWARE SECURITY ARCHITECT Human Metapneumovirus 03/13/2024 03/13/20242024 1:16 AM SOFTWARE SECURITY ARCHITECT R/O C. diff 03/13/2024 03/13/2024 03/14/2024 8:00 PM SOFTWARE SECURITY ARCHITECT R/O C. diff 03/14/2024 03/14/2024 03/15/2024 6:17 PM SOFTWARE SECURITY ARCHITECT documented as of this encounter Care Teams Risk Manager Relationship Specialty Start Date End Date Juventino Howe MD [address] [facility] [address] [place] [address] PCP - General Internal Medicine 11/04/11 documented as of this encounter
--- OUTSIDE RECORDS SUMMARY | 2024-07-26 18:07 | XMS_ITS | Encounter Summary ---
Author Organization [facility] Address [address] [place] [address] Care Team Providers Care Reed Or Wind Instrument Tuner Name Role Phone Juventino Howe MD Primary Care Provider [phone] Encounter Details Date Type Department Care Team (Late st Contact Info) Description 03/07/2008 Outpatient Historical [facility] Lynne Escobar MD [address] [place] [address] Social History Tobacco Use Types Packs/Day Years Used Date Smoking Tobacco: Never Assessed Comments Unknown Sex and Gender Information Value Date Recorded Sex Assigned at Not on file Legal Sex Female 3:38 AM HOSPICE CARE CONSULTANT Gender Identity Not on file Sexual Orientation Not on file documented as of this encounter Plan of Treatment Upcoming Encounters Date Type Department Care Team (Late st Contact Info) Description 07/31/2024 5:00 PM CDT Appointment [facility] Therapy [address] [address] Chandler Spivye PA [address] [facility] [address] [place] [address] Maegan Duncan, Physical Therapist 08/02/2024 5:00 PM CDT Appointment [facility] Neuro Rehabilitation [facility] [address] [facility] [place] [address] Jonathan Cortez MD [address] [facility] [address] [address] -x6 (Work) Sarah Estrada, RYAN 08/09/2024 5:00 PM CDT Appointment [facility] [place] [address] [place] [address] Chandler Spivey PA [address] [facility] [address] [place] [address] Maegan Duncan, Physical Therapist 08/30/2024 3:30 PM CDT Office Visit [facility] Internal Medicine Medical [place] [address] [address] Juventino Howe MD [address] [facility] [address] [place] [address] 10/31/2024 3:00 PM CDT Office Visit [facility] Pulmonology [facility] [address] [facility] [address] [place] [address] Everett Cam MD [address] [facility] [address] [place] [address] 12/28/2024 2:45 PM HOSPICE CARE CONSULTANT Office Visit [facility] Endocrinology [address] [facility] [address] [place] [address] Sheldon Canales MD [address] [place] [address] 02/26/2025 3:10 PM HOSPICE CARE CONSULTANT Office Visit [facility] Gastroenterology [facility] [address] [place] [address] Suzette Cody MD [address] [place] [address] documented as of this encounter Visit Diagnoses Not on filedocumented in this encounter Additional Health Concerns Infection Onset Date Last Indicated Resolved Time R/O Respiratory 01/11/2023 01/11/2023 01/11/2023 7 :48 PM HOSPICE CARE CONSULTANT R/O Respiratory 02/19/2024 02/19/2024 02/19/2024 1 1:21 AM HOSPICE CARE CONSULTANT Influenza 02/19/2024 02/19/2024 02/26/2024 1:16 AM HOSPICE CARE CONSULTANT R/O Respiratory 03/13/2024 03/13/2024 03/13/2024 4 :20 PM HOSPICE CARE CONSULTANT Human Metapneumovirus 03/13/2024 03/13/20242024 1:16 AM HOSPICE CARE CONSULTANT R/O C. diff 03/13/2024 03/13/2024 03/14/2024 8:00 PM HOSPICE CARE CONSULTANT R/O C. diff 03/14/2024 03/14/2024 03/15/2024 6:17 PM HOSPICE CARE CONSULTANT documented as of this encounter Care Teams Reed Or Wind Instrument Tuner Relationship Specialty Start Date End Date Juventino Howe MD [address] [facility] [address] [place] [address] PCP - General Internal Medicine 11/04/11 documented as of this encounter
--- OUTSIDE RECORDS SUMMARY | 2024-07-26 18:07 | XMS_ITS | Encounter Summary ---
Author Organization [facility] Address [address] [place] [address] Care Team Providers Care Tire Stripper Name Role Phone Juventino Howe MD Primary Care Provider [phone] Encounter Details Date Type Department Care Team (Latest Contact Info) Description 02/20/2008 Outpatient Historical [facility] Lee, Sulema Sherman MD NO ADDRESS ON FILE Lump or Mass in Breast Social History Tobacco Use Types Packs/Day Years Used Date Smoking Tobacco: Never Assessed Comments Unknown Sex and Gender Information Value Date Recorded Sex Assigned at Not on file Legal Sex Female 3:38 AM STAPLE SHEAR OPERATOR Gender Identity Not on file Sexual Orientation Not on file documented as of this encounter Plan of Treatment Upcoming Encounters Date Type Department Care Team (Late st Contact Info) Description 07/31/2024 5:00 PM CDT Appointment [facility] [address] [place] [address] Chandler Spivey PA [address] [place] [address] Maegan Duncan, Physical Therapist 08/02/2024 5:00 PM CDT Appointment [facility] Neuro [facility] [id number] [place] [address] Jonathan Cortez MD [address] [facility] [address] [address]x0 (Work) Sarah Estrada, MANAGER BUSINESS PLANNING 08/09/2024 5:00 PM CDT Appointment [facility] [place] [address] [place] [address] Chandler Spivey PA [address] [facility] [address] [place] [address] Maegan Duncan, Physical Therapist 08/30/2024 3:30 PM CDT Office Visit [facility] Internal Medicine Medical [place] A [facility] [address] [facility] [address] [place] [address] Juventino Howe MD [address] [facility] [address] [place] [address] 10/31/2024 3:00 PM CDT Office Visit [facility] Pulmonology [facility] [address] [facility] [address] [place] [address] Everett Cam MD [address] [facility] [address] [place] [address] 12/28/2024 2:45 PM STAPLE SHEAR OPERATOR Office Visit [facility] Endocrinology [address] [facility] [address] [place] [address] Sheldon Canales MD [address] [facility] [address] [place] [address] 02/26/2025 3:10 PM STAPLE SHEAR OPERATOR Office Visit [facility] Gastroenterology [facility] [address] [facility] [address] [place] [address] Suzette Cody MD [address] [facility] [address] [place] [address] documented as of this encounter Procedures Procedure Name Priority Date/Time Associated Diagnosis Comments US BREAST UNI LEFT COMPLETE Routine 02/20/2008 1:20 PM STAPLE SHEAR OPERATOR MAMMO DIAGNOSTIC BILATERAL W OR WO CAD Routine 02/20/2008 1:20 PM STAPLE SHEAR OPERATOR documented in this encounter Results * US BREAST UNILATERAL LEFT (02/20/2008 1:20 PM STAPLE SHEAR OPERATOR) Anatomical Region Laterality Modality Breast Left Other 02/20/2008 1:20 PM STAPLE SHEAR OPERATOR Narrative 02/21/2008 7:25 AM STAPLE SHEAR OPERATOR [facility] [address] [place], [place] [address] Admit Date: 02/20/2008 DUYEN OROSCO Sex: F Admit Prov: SULEMA LEE Date: 1960 Primary Care Prov: CMRN: [id number] Room: [facility] SSN: [id number] IMAGING SERVICES Ordering Prov: SULEMA LEE Accession Number: [id number] Interpretation BILATERAL FULL FIELD DIGITAL DIAGNOSTIC MAMMOGRAMS WITH COMPUTER AIDED DIAGNOSIS AND LEFT BREAST ULTRASOUND 02/20/2008 History: Left breast lump. Comparison is made with the patient's previous mammograms from February 1999 from [facility], as well as the patient's previous left breast ultrasound performed here at [facility] [place] 2007. Breast Composition: Scattered fibroglandular densities. Findings: Increased density is identified in the upper-outer quadrant of the left breast. This has not significantly changed since the previous examination. An ultrasound of this finding is warranted. No other dominant masses, areas of asymmetry, or suspicious clustered microcalcifications are identified within either breast. The CAD system detects no other significant abnormalities. A left breast ultrasound was performed. This demonstrates multiple simple cysts in the upper-outer quadrant of the left breast. The largest simple cyst is approximately 1 cm in size and is located at the 2:00 position. At the 3:00 position of the left breast, a mildly irregular mass is identified which measures approximately 3 x 5 mm in size. The borders of this are mildly irregular. It is therefore recommended that the patient have an ultrasound guided core biopsy. Overall assessment: BIRADS category 4a: suspicious findings, low suspicion. Recommendation: It is recommended the patient have an ultrasound guided core biopsy of the mass at the 3:00 position of the left breast. The borders of this mass are mildly irregular. The patient understands the above recommendation. This will be scheduled for the patient prior to her leaving the department today. Dictated by: CHELSIE SANTAMARIA Electronically signed by: CHELSIE SANTAMARIA 02/21/2008 07:24 Transcribed: 02/20/2008 22:06 [facility] Procedure Note Chelsie Santamaria - 02/21/2008 [facility] [address] [place], [place] [address] Admit Date: 02/20/2008 DUYEN OROSCO Sex: F Admit Prov: SULEMA LEE Date: 1960 Primary Care Prov: CMRN: [id number] Room: [facility] SSN: [id number] IMAGING SERVICES Ordering Prov: SULEMA LEE Interpretation BILATERAL FULL FIELD DIGITAL DIAGNOSTIC MAMMOGRAMS WITH COMPUTERAIDED DIAGNOSIS AND LEFT BREAST ULTRASOUND 02/20/2008 History: Left breast lump. Comparison is made with the patient's previous mammograms fromFebruary 1999 from [facility], as well as the patient's previousleft breast ultrasound [facility]. Breast Composition: Scattered fibroglandular densities. Findings: Increased density is identified in the upper-outerquadrant of the left breast. This has not significantly changed since theprevious examination. An ultrasound of this finding is warranted. No otherdominant masses, areas of asymmetry, or suspicious clusteredmicrocalcifications are identified within either breast. The CAD system detects no other significant abnormalities. A left breast ultrasound was performed. This demonstrates multiplesimple cysts in the upper-outer quadrant of the left breast. The largestsimple cyst is approximately 1 cm in size and is located at the 2:00position. At the 3:00 position of the left breast, a mildly irregular mass isidentified which measures approximately 3 x 5 mm in size. The borders of thisare mildly irregular. It is therefore recommended that the patient havean ultrasound guided core biopsy. Overall assessment: BIRADS category 4a: suspicious findings, low suspicion. Recommendation: It is recommended the patient have an ultrasoundguided core biopsy of the mass at the 3:00 position of the left breast.The borders of this mass are mildly irregular. The patient understandsthe above recommendation. This will be scheduled for the patient prior toher leaving the department today. Dictated by: CHELSIE SANTAMARIA Electronically signed by: CHELSIE SANTAMARIA 02/21/2008 07:24 Transcribed: 02/20/2008 22:06 [facility] us Sulema Lee MD ORDERABLES Final Result * MAMMO DIGITAL DIAG BILAT (02/20/2008 1:20 PM STAPLE SHEAR OPERATOR) Anatomical Region Laterality Modality Breast Bilateral Other 02/20/2008 1:20 PM STAPLE SHEAR OPERATOR Narrative 02/21/2008 7:25 AM STAPLE SHEAR OPERATOR [facility] [address] [place], [place] [address] Admit Date: 02/20/2008 DUYEN OROSCO E Sex: F Admit Prov: SULEMA LEE Date: 1960 Primary Care Prov: CMRN: [id number] Room: JANE SSN: [id number] IMAGING SERVICES Ordering Prov: SULEMA LEE Accession Number: [id number] Interpretation BILATERAL FULL FIELD DIGITAL DIAGNOSTIC MAMMOGRAMS WITH COMPUTER AIDED DIAGNOSIS AND LEFT BREAST ULTRASOUND 02/20/2008 History: Left breast lump. Comparison is made with the patient's previous mammograms from February 1999 from [facility], as well as the patient's previous left breast ultrasound performed here at [facility]. Breast Composition: Scattered fibroglandular densities. Findings: Increased density is identified in the upper-outer quadrant of the left breast. This has not significantly changed since the previous examination. An ultrasound of this finding is warranted. No other dominant masses, areas of asymmetry, or suspicious clustered microcalcifications are identified within either breast. The CAD system detects no other significant abnormalities. A left breast ultrasound was performed. This demonstrates multiple simple cysts in the upper-outer quadrant of the left breast. The largest simple cyst is approximately 1 cm in size and is located at the 2:00 position. At the 3:00 position of the left breast, a mildly irregular mass is identified which measures approximately 3 x 5 mm in size. The borders of this are mildly irregular. It is therefore recommended that the patient have an ultrasound guided core biopsy. Overall assessment: BIRADS category 4a: suspicious findings, low suspicion. Recommendation: It is recommended the patient have an ultrasound guided core biopsy of the mass at the 3:00 position of the left breast. The borders of this mass are mildly irregular. The patient understands the above recommendation. This will be scheduled for the patient prior to her leaving the department today. Assessment BIRADS: 4A-Suspicious abnormality, biopsy should be considered- Low suspicion Recommendation: Histology using core biopsy Dictated by: CHELSIE SANTAMARIA Electronically signed by: CHELSIE SANTAMARIA 02/21/2008 07:24 Transcribed: 02/20/2008 22:06 [facility] Procedure Note Chelsie Santamaria - 02/21/[address] [address] Admit Date: 02/20/2008 DUYEN OROSCO Sex: F Admit Prov: SULEMA LEE Date: 1960 Primary Care Prov: CMRN: [id number] Room: [facility] SSN: [id number] IMAGING SERVICES Ordering Prov: SULEMA LEE Interpretation BILATERAL FULL FIELD DIGITAL DIAGNOSTIC MAMMOGRAMS WITH COMPUTERAIDED DIAGNOSIS AND LEFT BREAST ULTRASOUND 02/20/2008 History: Left breast lump. Comparison is made with the patient's previous mammograms fromFebruary 1999 from [facility], as well as the patient's [facility]left [facility]. Breast Composition: Scattered fibroglandular densities. Findings: Increased density is identified in the upper-outerquadrant of the left breast. This has not significantly changed since theprevious examination. An ultrasound of this finding is warranted. No otherdominant masses, areas of asymmetry, or suspicious clusteredmicrocalcifications are identified within either breast. The CAD system detects no other significant abnormalities. A left breast ultrasound was performed. This demonstrates multiplesimple cysts in the upper-outer quadrant of the left breast. The largestsimple cyst is approximately 1 cm in size and is located at the 2:00position. At the 3:00 position of the left breast, a mildly irregular mass isidentified which measures approximately 3 x 5 mm in size. The borders of thisare mildly irregular. It is therefore recommended that the patient havean ultrasound guided core biopsy. Overall assessment: BIRADS category 4a: suspicious findings, low suspicion. Recommendation: It is recommended the patient have an ultrasoundguided core biopsy of the mass at the 3:00 position of the left breast.The borders of this mass are mildly irregular. The patient understandsthe above recommendation. This will be scheduled for the patient prior toher leaving the department today. Assessment BIRADS: 4A-Suspicious abnormality, biopsy should beconsidered- Low suspicion Recommendation: Histology using core biopsy Dictated by: CHELSIE SANTAMARIA Electronically signed by: CHELSIE SANTAMARIA 02/21/2008 07:24 Transcribed: 02/20/2008 22:06 SDJ Sulema Lee MD MAMMO ORDERABLES Final Resul t documented in this encounter Visit Diagnoses Diagnosis Lump or mass in breast documented in this encounter Additional Health Concerns Infection Onset Date Last Indicated Resolved Time R/O Respiratory 01/11/2023 01/11/2023 01/11/2023 7 :48 PM STAPLE SHEAR OPERATOR R/O Respiratory 02/19/2024 02/19/2024 02/19/2024 1 1:21 AM STAPLE SHEAR OPERATOR Influenza 02/19/2024 02/19/2024 02/26/2024 1:16 AM STAPLE SHEAR OPERATOR R/O Respiratory 03/13/2024 03/13/2024 03/13/2024 4 :20 PM STAPLE SHEAR OPERATOR Human Metapneumovirus 03/13/2024 03/13/20242024 1:16 AM STAPLE SHEAR OPERATOR R/O C. diff 03/13/2024 03/13/2024 03/14/2024 8:00 PM STAPLE SHEAR OPERATOR R/O C. diff 03/14/2024 03/14/2024 03/15/2024 6:17 PM STAPLE SHEAR OPERATOR documented as of this encounter Care Teams Tire Stripper Relationship Specialty Start Date End Date Juventino Howe MD [address] [facility] [address] [place] [address] PCP - General Internal Medicine 11/04/11 documented as of this encounter
--- OUTSIDE RECORDS SUMMARY | 2024-07-26 18:07 | XMS_ITS | Referral Summary ---
Author Organization [facility] Address [address] [place] [address] Care Team Providers Care Sprinkler Repair Technician Name Role Phone Juventino Howe MD Primary Care Provider [phone] Tomer Thompson Unavailable [phone] Valerio Real MD Unavailable [phone] Em Valencia MD Unavailable [phone] Allergies Active Allergy Reactions Criticality Noted Date [...] Vaccination (12+ YRS) 06/14/2020 Td, adsorbed 02/16/1992 Social History Tobacco Use Types Packs/Day Years [...] How often do you attend chur or jew services? 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 Not on file Not on file Not on file Last Filed Vital Signs [...] 11/25/2022 2:33 PM CDT Plan of Treatment Not on file Procedures Procedure Name Priority Date/Time Associated Diagnosis Comments SCREENING MAMMOGRAM 2D BILATERAL Schedule Routine, Read Routine (OP Routine) 08/06/2022 6:17 AM CDT OCCULT BLOOD, FECAL (FIT) STAT 12/26/2017 11:14 PM APPAREL PATTERN MAKER from Last 3 Months or Most Recently Relevant to Health Maintenance Results * Screening Mammogram 2D Bilateral (08/06/2022 6:17 AM CDT) Anatomical Region Laterality Modality Breast Bilateral Mammography us Historical Provider MD LARA MAMMO PROCEDURES Alice sykes Result * (ABNORMAL) Occult blood, fecal non neoplasm screening (12/26/2017 11:14 PM APPAREL PATTERN MAKER) Occult blood, fecal Positive(A) Negative [facility] ([facility]) Collection date feces [id number] [facility]) Collection time , feces 2313 [facility] ([facility]) Stool 12/26/2017 11:1 4 PM APPAREL PATTERN MAKER 12/26/2017 11:23 PM APPAREL PATTERN MAKER Narrative [facility] ([facility]) - 12/26/2017 11:24 PM APPAREL PATTERN MAKER us Ludwin Peralta MD LAB BODY FLUIDS AND STO OLS ORDERABLES Final Result [facility] ([facility]) 1 [facility] [place] [address] from Last 3 Months or Most Recently Relevant to Health Maintenance Insurance ANTHEM ACCESS ANTHEM ACCESS Member Subscriber Plan / Payer (Ef fective 2019-Present) Name:Duyen Orosco Relation to Subscriber:Self Name:Dueyn Orosco Payer ID:[id number] (NAIC) Type: ALLIANCE Address: [address] [place] [id number] [facility] Advance Directives For more information, please contact: [phone] * Full Code (Latest Code Status on File) Date Activated Date Inactivated Comments 07/26/2022 5:48 PM 07/28/2022 4:08 PM * Full Code Date Activated Date Inactivated Comments 07/26/2022 5:48 PM 07/26/2022 5:48 PM Care Teams Sprinkler Repair Technician Relationship Specialty Start Date End Date Juventino Howe MD [address] [place] [address] PCP - General 12/26/17 Tomer Thompson PA [address] [place] [address] Physician Funeral Director/Embalmer Neurosurgery 03/05/22 Valerio Real MD [address] [id number] Consulting Physician Neurosurgery 03/05/22 Em Valencia MD [address] [place] [address] Consulting Physician Pain Management 03/10/22
--- OUTSIDE RECORDS SUMMARY | 2024-07-26 18:07 | XMS_ITS | Encounter Summary ---
Author Organization [facility] Address [address] [place] [address] Care Team Providers Care Military Personnel Specialist Name Role Phone Juventino Howe MD Primary Care Provider [phone] Encounter Details Date Type Department Care Team (Late Contact Info) Description 07/06/2008 Outpatient Historical [facility] [place], Authorized P NO ADDRESS ON FILE Edd Ocampo MD [address] [place] [address] Social History Tobacco Use Types Packs/Day Years Used Date Smoking Tobacco: Never Alcohol Use Standard Drinks/Week Comments No 0 (1 standard drink = 0.6 oz pur e alcohol) Comments No Sex and Gender Information Value Date Recorded Sex Assigned at Not on file Legal Sex Female 3:38 AM DENTAL HYGIENIST Gender Identity Not on file Sexual Orientation Not on file documented as of this encounter Plan of Treatment Upcoming Encounters Date Type Department Care Team ([facility] Contact Info) Description 07/31/2024 5:00 PM CDT Appointment [facility] Therapy Services [place] [address] [facility] [address] [place] [address] Chandler Spivey PA [address] [facility] [address] [place] [address] Maegan uDncan, Physical Therapist 08/02/2024 5:00 PM CDT Appointment [facility] Neuro Rehabilitation [place] [address] [place] [address] Jonathan Cortez MD [address] [facility] [address] [address] -x0 (Work) Sarah Estrada, RYAN 08/09/2024 5:00 PM CDT Appointment [facility] [address] [facility] [address] [place] [id number] Chandler Spivey PA [address] [facility] [address] [place] [address] Maegan Duncan, Physical Therapist 08/30/2024 3:30 PM CDT Office Visit [facility] Internal Medicine Medical [place] [facility] [address] [facility] [address] [address] Juventino Howe MD [address] [facility] [address] [place] [address] 10/31/2024 3:00 PM CDT Office Visit [facility] Pulmonology [facility] [address] [facility] [address] [place] [address] Everett Cam MD [address] [facility] [address] [place] [address] 12/28/2024 2:45 PM DENTAL HYGIENIST Office Visit [facility] Endocrinology [address] [facility] [address] [place] [address] Sheldon Canales MD [address] [facility] [address] [place] [address] 02/26/2025 3:10 PM DENTAL HYGIENIST Office Visit [facility] Gastroenterology [facility] [address] [facility] [address] [place] [address] Suzette Cody MD [address] [facility] [address] [place] [address] documented as of this encounter Procedures Procedure Name Priority Date/Time Associated Diagnosis Comments CBC WITH DIFFERENTIAL Stat 07/06/2008 6:10 PM CDT URINALYSIS W/REFLEX MICROSCOPIC Stat 07/06/2008 6:10 PM CDT TSH Stat 07/06/2008 6:10 PM CDT COMPREHENSIVE METABOLIC PANEL Stat 07/06/2008 6:10 PM CDT documented in this encounter Results * (ABNORMAL) COMPREHENSIVE METABOLIC PANEL (07/06/2008 6:10 PM CDT) TOTAL PROTEIN 7.5 6.3 - 8.6 g/dL [facility] POTASSIUM 4.1 3.5 - 4.9 mmol/L [facility] GLUCOSE 88 65 - 99 mg/dL [facility] AST 18 12 - 32 U/L [facility] BUN 10 6 - 20 mg/dL [facility] CALCIUM 9.8 8.6 - 10.2 mg/dL [facility] ALBUMIN 4.6 3.4 - 4.8 g/dL [facility] CHLORIDE 101 96 - 108 mmol/L [facility] CREATININE 0.79 0.51 - 0.95 mg/dL [facility] ALT 18 0 - 31 U/L [facility] SODIUM 139 135 - 145 mmol/L [facility] ALKALINE PHOSPHATASE 116(H) 35 - 104 U/L [facility] BILIRUBIN TOTAL 0.3 0.2 - 1.0 mg/dL [facility] CO2 26 22 - 30 mmol/L [facility] GFR, >60 >=60 mL/min/1. 7 sq meter [facility] GFR >60 >=60 mL/min/1. 7 sq meter [facility] Comment: Modification of Diet in Renal Disease (MDRD) study formula. Estimated GFR rate interpretative information for both Americans and non- Americans is available on the [facility] Intranet at: [email or web address] Select: Lab Policies and Procedures Select: Reference Ranges - GFR 07/06/2008 6:10 PM CDT 07/06/2008 6:14 PM CDT Edd Ocampo MD CHEMISTRY ORDERABLES Edited Performing Organization Address [facility] Phone Number INTERFACE SYSTEM Refer to clinic/hospital department [facility] CLIA# [id number] [address] [facility] [place] [address] * TSH (07/06/2008 6:10 PM CDT) Pathologist [facility] TSH 1.29 0.27 - 4.20 uU/mL [facility] 07/06/2008 6:10 PM CDT 07/06/2008 6:14 PM CDT us Edd Ocampo MD CHEMISTRY ORDERABLES Final Re sult Performing Organization Address [facility] Phone Number INTERFACE SYSTEM Refer to clinic/hospital department [facility] CLIA# [id number] [address] [place] [address] * URINALYSIS (07/06/2008 6:10 PM CDT) NITRITE UA Negative Negative [facility] UROBILINOGEN UA <1 <=1 mg/dL [facility] PH UA 6.5 5.0 - 8.0 [facility] KETONES UA Negative Negative [facility] CLARITY UA Clear Clear [facility] PROTEIN UA Negative Negative [facility] BILIRUBIN UA Negative Negative [facility] LEUKOCYTE ESTERASE UA Negative Negative [facility] SPECIFIC GRAVITY UA 1.003 1.001 - 1.035 [facility] BLOOD UA Negative Negative [facility] GLUCOSE UA Negative Negative [facility] COLOR UA Colorless [facility] 07/06/2008 6:10 PM CDT 07/06/2008 6:14 PM CDT us Edd Ocampo MD URINE ORDERABLES Final Result INTERFACE SYSTEM Refer to clinic/hospital department [facility] CLIA# [id number] [address] [facility] [place] [address] * (ABNORMAL) CBC WITH DIFFERENTIAL (07/06/2008 6:10 PM CDT) MPV 10.5 9.3 - 12.4 fL [facility] HEMATOCRIT 43.8 35.5 - 44.0 % [facility] RDW-STDEV 45.8 37.1 - 48.7 fL [facility] RBC 4.62 3.90 - 4.90 M/uL [facility] MCHC 34.9 31.5 - 35.5 % [facility] MCV 94.8 82.0 - 99.0 fL [facility] PLATELETS 280 140 - 350 K/uL [facility] HEMOGLOBIN 15.3(H) 11.8 - 14.8 g/dL [facility] RDW 13.1 11.5 - 14.5 % [facility] WBC 9.7 4.0 - 9.8 K/uL [facility] MCH 33.1(H) 27.2 - 32.6 pg [facility] BASOPHILS 0 0 - 2 % [facility] BASOPHILS ABSOLUTE 0.04 0.00 - 0.20 K/uL [facility] MONOCYTES 6 3 - 13 % [facility] MONOCYTE ABSOLUTE 0.59 0.10 - 1.30 K/uL [facility] NEUTROPHILS 58 45 - 70 % [facility] NEUTROPHIL ABSOLUTE 5.63 1.90 - 7.00 K/uL [facility] EOSINOPHILS 1 0 - 7 % [facility] EOSINOPHIL ABSOLUTE 0.09 0.00 - 0.70 K/uL [facility] LYMPHOCYTES 34 16 - 45 % [facility] LYMPHOCYTE ABSOLUTE 3.33 0.70 - 4.50 K/uL [facility] 07/06/2008 6:10 PM CDT 07/06/2008 6:14 PM CDT us Edd Ocampo MD HEMATOLOGY ORDERABLES Edited INTERFACE SYSTEM Refer to clinic/hospital department [facility] CLIA# [id number] [address] [place], [place] [address] documented in this encounter Visit Diagnoses Not on filedocumented in this encounter Additional Health Concerns Infection Onset Date Last Indicated Resolved Time R/O Respiratory 01/11/2023 01/11/2023 01/11/2023 7 :48 PM DENTAL HYGIENIST R/O Respiratory 02/19/2024 02/19/2024 02/19/2024 1 1:21 AM DENTAL HYGIENIST Influenza 02/19/2024 02/19/2024 02/26/2024 1:16 AM DENTAL HYGIENIST R/O Respiratory 03/13/2024 03/13/2024 03/13/2024 4 :20 PM DENTAL HYGIENIST Human Metapneumovirus 03/13/2024 03/13/20242024 1:16 AM DENTAL HYGIENIST R/O C. diff 03/13/2024 03/13/2024 03/14/2024 8:00 PM DENTAL HYGIENIST R/O C. diff 03/14/2024 03/14/2024 03/15/2024 6:17 PM DENTAL HYGIENIST documented as of this encounter Care Teams Military Personnel Specialist Relationship Specialty Start Date End Date Juventino Howe MD [address] [facility] [address] [place] [address] PCP - General Internal Medicine 11/04/11 documented as of this encounter
--- OUTSIDE RECORDS SUMMARY | 2024-07-26 18:07 | XMS_ITS | Encounter Summary ---
Author Organization [facility] Address [address] [place] [address] Care Team Providers Care Glass Setter Name Role Phone Juventino Howe MD Primary Care Provider [phone] Encounter Details Date Type Department Care Team (Latest Contact Info) Description 2006 Outpatient Historical [facility] Lynne Navarro MD [address] [place] [address] Other Specified Circulatory System Disorders (Primary Dx) Social History Tobacco Use Types Packs/Day Years Used Date Smoking Tobacco: Never Assessed Comments Unknown Sex and Gender Information Value Date Recorded Sex Assigned at Not on file Legal Sex Female 3:38 AM LOCOMOTIVE OPERATOR Gender Identity Not on file Sexual Orientation Not on file documented as of this encounter Plan of Treatment Upcoming Encounters Date Type Department Care Team (Late st Contact Info) Description 07/31/2024 5:00 PM CDT Appointment [facility] Therapy Services [address] [address] Chandler Spivey PA [address] [facility] [address] [place] [address] Maegan Duncan, Physical Therapist 08/02/2024 5:00 PM CDT Appointment [facility] Neuro Rehabilitation [address] [place] [address] Jonathan Cortez MD [address] [facility] [address] [address] -x0 (Work) Sarah Estrada, RYAN 08/09/2024 5:00 PM CDT Appointment [facility] [address] [facility] 145 [place] [address] Chandler Spivey PA [address] [facility] [address] [place] [address] Maegan Duncan, Physical Therapist 08/30/2024 3:30 PM CDT Office Visit [facility] Internal Medicine Medical [place] A [facility] 189 [address] [facility] [address] [address] Juventino Howe MD [address] [facility] [address] [place] [address] 10/31/2024 3:00 PM CDT Office Visit [facility] Pulmonology [facility] [address] [facility] [address] [place] [address] Everett Cam MD [address] [address] [place] [address] 12/28/2024 2:45 PM LOCOMOTIVE OPERATOR Office Visit [facility] Endocrinology [address] [facility] [address] [place] [address] Sheldon Canales MD [address] [facility] [address] [place] [address] 02/26/2025 3:10 PM LOCOMOTIVE OPERATOR Office Visit [facility] Gastroenterology [facility] [address] [facility] [address] [place] [address] Suzette Cody MD [address] [facility] [address] [place] [address] documented as of this encounter Procedures Procedure Name Priority Date/Time Associated Diagnosis Comments URINALYSIS W/REFLEX MICROSCOPIC Routine 2006 3:48 PM CDT documented in this encounter Results * URINALYSIS (2006 3:48 PM CDT) COLOR UA Colorless INTERFACE SYSTEM CLARITY UA Clear Clear INTERFACE SYSTEM SPECIFIC GRAVITY UA 1.003 1.001 - 1.035 INTERFACE SYSTEM PH UA 5.0 5.0 - 8.0 INTERFACE SYSTEM LEUKOCYTE ESTERASE UA Negative Negative INTERFACE SYSTEM NITRITE UA Negative Negative INTERFACE SYSTEM PROTEIN UA Negative Negative INTERFACE SYSTEM GLUCOSE UA Negative Negative INTERFACE SYSTEM KETONES UA Negative Negative INTERFACE SYSTEM UROBILINOGEN UA <1 <=1 mg/dL INTE RFACE SYSTEM BILIRUBIN UA Negative Negative INTERFA CE SYSTEM BLOOD UA Negative Negative INTERFACE SYSTEM 2006 3:48 PM CDT Lynne Escobar MD URINE ORDERABLES Edited INTERFACE SYSTEM Refer to clinic/hospital department documented in this encounter Visit Diagnoses Diagnosis Other specified circulatory system disorders- Primary documented in this encounter Additional Health Concerns Infection Onset Date Last Indicated Resolved Time R/O Respiratory 01/11/2023 01/11/2023 01/11/2023 7 :48 PM LOCOMOTIVE OPERATOR R/O Respiratory 02/19/2024 02/19/2024 02/19/2024 1 1:21 AM LOCOMOTIVE OPERATOR Influenza 02/19/2024 02/19/2024 02/26/2024 1:16 AM LOCOMOTIVE OPERATOR R/O Respiratory 03/13/2024 03/13/2024 03/13/2024 4 :20 PM LOCOMOTIVE OPERATOR Human Metapneumovirus 03/13/2024 03/13/20242024 1:16 AM LOCOMOTIVE OPERATOR R/O C. diff 03/13/2024 03/13/2024 03/14/2024 8:00 PM LOCOMOTIVE OPERATOR R/O C. diff 03/14/2024 03/14/2024 03/15/2024 6:17 PM LOCOMOTIVE OPERATOR documented as of this encounter Care Teams Glass Setter Relationship Specialty Start Date End Date Juventino Howe MD [address] [place] [address] PCP - General Internal Medicine 11/04/11 documented as of this encounter
--- OUTSIDE RECORDS SUMMARY | 2024-07-26 18:07 | XMS_ITS | Encounter Summary ---
Author Organization [facility] Address [address] [place] [address] Care Team Providers Care Real Estate Administrator Name Role Phone Juventino Howe MD Primary Care Provider [phone] Encounter Details Date Type Department Care Team (Latest Contact Info) Description 07/25/2008 Outpatient Historical [facility] Timo Yates NP NO ADDRESS ON FILE Symptomatic Menopausal or Female Climacteric States Social History Tobacco Use Types Packs/Day Years Used Date Smoking Tobacco: Never Alcohol Use Standard Drinks/Week Comments No 0 (1 standard drink = 0.6 oz pur e alcohol) Comments No Sex and Gender Information Value Date Recorded Sex Assigned at Not on file Legal Sex Female 3:38 AM COFFEE SOMMELIER Gender Identity Not on file Sexual Orientation Not on file documented as of this encounter Plan of Treatment Upcoming Encounters Date Type Department Care Team (Late st Contact Info) Description 07/31/2024 5:00 PM CDT Appointment [facility] Therapy Services [address] [place] [address] Chandler Spivey PA [address] [place] [address] Maegan Duncan, Physical Therapist 08/02/2024 5:00 PM CDT Appointment [facility] Neuro Rehabilitation [facility] [address] [place] [address] Jonatahn Cortez MD [address] [facility] [address] [address] -x0 (Work) Sarah Estrada, RYAN 08/09/2024 5:00 PM CDT Appointment [facility] Services [place] [address] [facility] [address] [place] [address] Chandler Spivey PA [address] [facility] [address] [place] [address] Maegan Duncan, Physical Therapist 08/30/2024 3:30 PM CDT Office Visit [facility] Internal Medicine Medical [place] A [facility] [address] [address] Juventino Howe MD [address] [facility] [address] [place] [address] 10/31/2024 3:00 PM CDT Office Visit [facility] Pulmonology [facility] [address] [facility] [address] [place] [address] Everett Cam MD [address] [facility] [address] [place] [address] 12/28/2024 2:45 PM COFFEE SOMMELIER Office Visit [facility] Endocrinology [address] [facility] [address] [place] [address] Sheldon Canales MD [address] [facility] [address] [place] [address] 02/26/2025 3:10 PM COFFEE SOMMELIER Office Visit [facility] Gastroenterology [place] [address] [facility] [address] [place] [address] Suzette Cody MD [address] [facility] [address] [place] [address] documented as of this encounter Visit Diagnoses Diagnosis Symptomatic menopausal or female climacteric states documented in this encounter Additional Health Concerns Infection Onset Date Last Indicated Resolved Time R/O Respiratory 01/11/2023 01/11/2023 01/11/2023 7 :48 PM COFFEE SOMMELIER R/O Respiratory 02/19/2024 02/19/2024 02/19/2024 1 1:21 AM COFFEE SOMMELIER Influenza 02/19/2024 02/19/2024 02/26/2024 1:16 AM COFFEE SOMMELIER R/O Respiratory 03/13/2024 03/13/2024 03/13/2024 4 :20 PM COFFEE SOMMELIER Human Metapneumovirus 03/13/2024 03/13/20242024 1:16 AM COFFEE SOMMELIER R/O C. diff 03/13/2024 03/13/2024 03/14/2024 8:00 PM COFFEE SOMMELIER R/O C. diff 03/14/2024 03/14/2024 03/15/2024 6:17 PM COFFEE SOMMELIER documented as of this encounter Care Teams Real Estate Administrator Relationship Specialty Start Date End Date Juventino Howe MD [address] [facility] [address] [place] [address] PCP - General Internal Medicine 11/04/11 documented as of this encounter
--- OUTSIDE RECORDS SUMMARY | 2024-07-26 18:07 | XMS_ITS | Encounter Summary ---
Author Organization [facility] Address [address] [place] [address] Care Team Providers Care Surgical Instrument Repair Specialist Name Role Phone Juventino Howe MD Primary Care Provider [phone] Encounter Details Date Type Department Care Team (Late st Contact Info) Description 06/11/2008 Outpatient Historical HIS IMG-HOSP Conversion, History Unspecified Disorder of Thyroid Social History Tobacco Use Types Packs/Day Years Used Date Smoking Tobacco: Never Assessed Comments Unknown Sex and Gender Information Value Date Recorded Sex Assigned at Not on file Legal Sex Female 3:38 AM FLOWER STRIPPER Gender Identity Not on file Sexual Orientation Not on file documented as of this encounter Plan of Treatment Upcoming Encounters Date Type Department Care Team (Late st Contact Info) Description 07/31/2024 5:00 PM CDT Appointment [facility] [address] [place] [address] Chandler Spivey PA [address] [place] [address] Maegan Duncan, Physical Therapist 08/02/2024 5:00 PM CDT Appointment [facility] Neuro Rehabilitation [address] [place] [address] Jonathan Cortez MD [address] [facility] [address] [address] -x0 (Work) Sarah Estrada, WILDLIFE PROTECTOR 08/09/2024 5:00 PM CDT Appointment [facility] [place] [address] [place] [address] Chandler Spivey PA [address] [facility] [address] [place] [address] Maegan Duncan, Physical Therapist 08/30/2024 3:30 PM CDT Office Visit [facility] Internal Medicine Medical [place] [facility] [address] [place] [address] Juventino Howe MD [address] [place] [address] 10/31/2024 3:00 PM CDT Office Visit [facility] Pulmonology [facility] [address] [place] [address] Everett Cam MD [address] [place] [address] 12/28/2024 2:45 PM FLOWER STRIPPER Office Visit [facility] Endocrinology [address] [facility] [address] [place] [address] Sheldon Canales MD [address] [facility] [address] [place] [address] 02/26/2025 3:10 PM FLOWER STRIPPER Office Visit [facility] Gastroenterology [facility] [address] [facility] [address] [place] [address] Suzette Cody MD [address] [facility] [address] [place] [address] documented as of this encounter Procedures Procedure Name Priority Date/Time Associated Diagnosis Comments US HEAD NECK TISSUES Timed Study 06/11/2008 2:46 PM CDT documented in this encounter Results * US NECK TISSUES (06/11/2008 2:46 PM CDT) Anatomical Region Laterality Modality Head Other 06/11/2008 2:46 PM CDT Narrative 06/12/2008 7:41 AM CDT [address] [place], [place] [address] Admit Date: 06/11/2008 EPIFANIO OROSCO Sex: F Admit Prov: PCP, UNKNOWN Date: 1960 Primary Care Prov: CMRN: [id number] Room: [facility] SSN: [id number] IMAGING SERVICES Ordering Prov: N/A Accession Number: [id number] Interpretation EXAMINATION: ULTRASOUND OF THYROID GLAND 06/11/2008 Clinical History: Thyroid nodules. Findings: Thyroid gland is normal in size. Right thyroid lobe measures 1.7 x 5.0 x 1.9 cm. Left thyroid lobe measures 4.2 x 1.5 x 1.3 cm. Within the inferior left thyroid lobe there is a peripheral hypoechoic 8 x 6 x 4 mm nodule, with sharp margins, no significant vascularity and no distinct calcifications. Within the left upper thyroid there is a 7 x 4 x 6 mm hypoechoic nodule without significant vascularity or distinct calcifications. Within the inferior right thyroid lobe there is a partially cystic 3.4 x 1.7 x 2.9 cm nodule with mild peripheral vascularity and no distinct calcifications. Within the right upper thyroid lobe there is an 8 x 6 x 9 mm hypoechoic nodule with mild peripheral vascularity and no distinct calcifications. There is no perithyroid lymphadenopathy or fluid. IMPRESSION: Bilateral thyroid nodules most compatible with benign adenomas. . Dictated by: Angela PERERA 06/11/2008 15:01 Electronically signed by: Angela PERERA 06/12/2008 07:40 Transcribed: 06/11/2008 15:45 SJ Procedure Note Donny Perera MD - 06/12/2008 [facility] [address] [place], [place] [address] Admit Date: 06/11/2008 EPIFANIO OROSCO Sex: F Admit Prov: PCP, UNKNOWN Date: 1960 Primary Care Prov: CMRN: [id number] Room: [facility] SSN: [id number] IMAGING SERVICES Ordering Prov: N/A Interpretation EXAMINATION: ULTRASOUND OF THYROID GLAND 06/11/2008 Clinical History: Thyroid nodules. Findings: Thyroid gland is normal in size. Right thyroid lobemeasures 1.7 x 5.0 x 1.9 cm. Left thyroid lobe measures 4.2 x 1.5 x 1.3 cm. Within the inferior left thyroid lobe there is a peripheralhypoechoic 8 x 6 x 4 mm nodule, with sharp margins, no significant vascularity andno distinct calcifications. Within the left upper thyroid there is a 7 x4 x 6 mm hypoechoic nodule without significant vascularity or distinct calcifications. Within the inferior right thyroid lobe there is a partially cystic3.4 x 1.7 x 2.9 cm nodule with mild peripheral vascularity and nodistinct calcifications. Within the right upper thyroid lobe there is an 8 x 6x 9 mm hypoechoic nodule with mild peripheral vascularity and nodistinct calcifications. There is no perithyroid lymphadenopathy or fluid. IMPRESSION: Bilateral thyroid nodules most compatible with benign adenomas. . Dictated by: Angela PERERA 06/11/2008 15:01 Electronically signed by: Angela PERERA 06/12/2008 07:40 Transcribed: 06/11/2008 15:45 SJ us History Conversion US ORDERABLES Final Result documented in this encounter Visit Diagnoses Diagnosis Unspecified disorder of thyroid documented in this encounter Additional Health Concerns Infection Onset Date Last Indicated Resolved Time R/O Respiratory 01/11/2023 01/11/2023 01/11/2023 7 :48 PM FLOWER STRIPPER R/O Respiratory 02/19/2024 02/19/2024 02/19/2024 1 1:21 AM FLOWER STRIPPER Influenza 02/19/2024 02/19/2024 02/26/2024 1:16 AM FLOWER STRIPPER R/O Respiratory 03/13/2024 03/13/2024 03/13/2024 4 :20 PM FLOWER STRIPPER Human Metapneumovirus 03/13/2024 03/13/20242024 1:16 AM FLOWER STRIPPER R/O C. diff 03/13/2024 03/13/2024 03/14/2024 8:00 PM FLOWER STRIPPER R/O C. diff 03/14/2024 03/14/2024 03/15/2024 6:17 PM FLOWER STRIPPER documented as of this encounter Care Teams Surgical Instrument Repair Specialist Relationship Specialty Start Date End Date Juventino Howe MD [address] [facility] [address] [place] [address] PCP - General Internal Medicine 11/04/11 documented as of this encounter
--- OUTSIDE RECORDS SUMMARY | 2024-07-26 18:07 | XMS_ITS | Encounter Summary ---
Author Organization [facility] Address [address] [place] [address] Care Team Providers Care Ice Sculptor Name Role Phone Juventino Howe MD Primary Care Provider [phone] Encounter Details Date Type Department Care Team (Latest Contact Info) Description 08/27/2008 Outpatient Historical HIS [facility] Lynne Navarro MD [address] [place] [address] Neurogenic Bowel; Heartburn Social History Tobacco Use Types Packs/Day Years Used Date Smoking Tobacco: Never Alcohol Use Standard Drinks/Week Comments No 0 (1 standard drink = 0.6 oz pur e alcohol) Comments No Sex and Gender Information Value Date Recorded Sex Assigned at Not on file Legal Sex Female 3:38 AM GED INSTRUCTOR Gender Identity Not on file Sexual Orientation Not on file documented as of this encounter Plan of Treatment Upcoming Encounters Date Type Department Care Team (Late st Contact Info) Description 07/31/2024 5:00 PM CDT Appointment [facility] Therapy Services [address] [address] Chandler Spivey PA [address] [facility] [address] [place] [address] Maegan Duncan, Physical Therapist 08/02/2024 5:00 PM CDT Appointment [facility] Neuro Rehabilitation [address] [place] [address] Jonathan Cortez MD [address] [facility] [address] [address] -x0 (Work) Sarah Estrada, TOPOLOGY TEACHER 08/09/2024 5:00 PM CDT Appointment [facility] Services [place] [address] [facility] [address] [place] [address] Chandler Spivey PA [address] [facility] [address] [place] [address] Maegan Duncan, Physical Therapist 08/30/2024 3:30 PM CDT Office Visit [facility] Internal Medicine Medical [place] [facility] [address] [facility] [address] [address] Juventino Howe MD [address] [facility] [address] [place] [address] 10/31/2024 3:00 PM CDT Office Visit [facility] Pulmonology [facility] [address] [facility] [address] [place] [address] Everett Cam MD [address] [facility] [address] [place] [address] 12/28/2024 2:45 PM GED INSTRUCTOR Office Visit [facility] Endocrinology [address] [facility] [address] [place] [address] Sheldon Canales MD [address] [facility] [address] [place] [address] 02/26/2025 3:10 PM GED INSTRUCTOR Office Visit [facility] Gastroenterology [facility] [address] [facility] [address] [place] [address] Suzette Cody MD [address] [facility] [address] [place] [address] documented as of this encounter Procedures Procedure Name Priority Date/Time Associated Diagnosis Comments XR CHEST PA AND LATERAL 2 VW Routine 08/27/2008 11:27 AM CDT PROTEIN ELECTROPHORESIS W/REFLEX,URINE Routine 08/27/2008 11:22 AM CDT IMMUNOGLOBULINS IGG IGA IGM Routine 08/27/2008 11:22 AM CDT documented in this encounter Results * XR CHEST PA AND LATERAL (08/27/2008 11:27 AM CDT) Anatomical Region Laterality Modality Chest Other 08/27/2008 11:2 7 AM CDT Narrative 08/27/2008 1:48 PM CDT [address] [address] Admit Date: 08/27/2008 GURJIT DUYEN Thompson Sex: F Admit Prov: LYNNE ESCOBAR Date: 1960 Primary Care Prov: CMRN: [id number] Room: [facility] SSN: [id number] IMAGING SERVICES Ordering Prov: N/A Accession Number: [id number] Interpretation Examination: Chest Two views Clinical History: Chest pain and heartburn Findings: Chest examination fails to demonstrate pleural, pulmonary, or mediastinal abnormality. Impression: Radiographically normal chest. . Dictated by: Anglea PERERA 08/27/2008 13:46 Electronically signed by: Angela PERERA 08/27/2008 13:47 Procedure Note Donny Perera MD - 08/27/[address] [address] Admit Date: 08/27/2008 DUYEN OROSCO E Sex: F Admit Prov: LYNNE ESCOBAR Date: 1960 Primary Care Prov: CMRN: [id number] Room: JOV[facility]-A SSN: [id number] IMAGING SERVICES Ordering Prov: N/A Interpretation Examination: Chest Two views Clinical History: Chest pain and heartburn Findings: Chest examination fails to demonstrate pleural, pulmonary,or mediastinal abnormality. Impression: Radiographically normal chest. . Dictated by: Angela PERERA 08/27/2008 13:46 Electronically signed by: Angela PERERA 08/27/2008 13:47 Lynne Escobar MD DIAGNOSTIC IMAGING ORDERABLES F inal Result * (ABNORMAL) PROTEIN ELECTROPHORESIS, URINE (08/27/2008 11:22 AM CDT) CREATININE, URINE 13(L) 29 - 226 mg/dL [facility] Comment:Reference Range vari es with fluid intake and diet. PROTEIN TOTAL, URINE <6 0 - 20 mg/dL [facility] PROTEIN/CREATI NINE RATIO, UPE <0.46(H) 0.00 - 0.19 mg/mg creatinine [facility] UPE INTERPRETED BY: Amirah Blevins MD [facility] UPE INTERP There is no proteinuria. Normal immunofixation; negative for Bence-Arreaga protein. [facility] 08/27/2008 11:2 2 AM CDT 08/27/2008 12:01 PM CDT Lynne Escobar MD URINE ORDERABLES Edited INTERFACE SYSTEM Refer to clinic/hospital department [facility] CLIA# [id number] [address] [facility] [place], [place] [address] * (ABNORMAL) IMMUNOGLOBULINS IGG IGA IGM (08/27/2008 11:22 AM CDT) IGA 165.8 87.0 - 421.0 mg/dL [facility] IGG 663(L) 674 - 1554 mg/dL [facility] IGM 148.3 46.0 - 293.0 mg/dL [facility] 08/27/2008 11:2 2 AM CDT 08/27/2008 11:49 AM CDT us Lynne Escobar MD CHEMISTRY ORDERABLES Final Resu lt INTERFACE SYSTEM Refer to clinic/hospital department [facility] CLIA# [id number] [address] [place] [address] documented in this encounter Visit Diagnoses Diagnosis Neurogenic bowel Heartburn documented in this encounter Additional Health Concerns Infection Onset Date Last Indicated Resolved Time R/O Respiratory 01/11/2023 01/11/2023 01/11/2023 7 :48 PM GED INSTRUCTOR R/O Respiratory 02/19/2024 02/19/2024 02/19/2024 1 1:21 AM GED INSTRUCTOR Influenza 02/19/2024 02/19/2024 02/26/2024 1:16 AM GED INSTRUCTOR R/O Respiratory 03/13/2024 03/13/2024 03/13/2024 4 :20 PM GED INSTRUCTOR Human Metapneumovirus 03/13/2024 03/13/20242024 1:16 AM GED INSTRUCTOR R/O C. diff 03/13/2024 03/13/2024 03/14/2024 8:00 PM GED INSTRUCTOR R/O C. diff 03/14/2024 03/14/2024 03/15/2024 6:17 PM GED INSTRUCTOR documented as of this encounter Care Teams Ice Sculptor Relationship Specialty Start Date End Date Juventino Howe MD [address] [place] [address] PCP - General Internal Medicine 11/04/11 documented as of this encounter
--- OUTSIDE RECORDS SUMMARY | 2024-07-26 18:07 | XMS_ITS | Encounter Summary ---
Author Organization [facility] Address [address] [place] [address] Care Team Providers Care Attendance Officer Name Role Phone Juventino Howe MD Primary Care Provider [phone] Encounter Details Date Type Department Care Team (Late Contact Info) Description 04/06/2006 Outpatient Historical HIS MRI DEPT Wendy Canales MD [address] [facility] [address] [place] [address] Abdominal or Pelvic Swelling, Mass or Lump, Unspecified Site (Primary Dx) Social History Tobacco Use Types Packs/Day Years Used Date Smoking Tobacco: Never Assessed Comments Unknown Sex and Gender Information Value Date Recorded Sex Assigned at Not on file Legal Sex Female 3:38 AM UMBRELLA TIPPER MACHINE Gender Identity Not on file Sexual Orientation Not on file documented as of this encounter Plan of Treatment Upcoming Encounters Date Type Department Care Team (Late Contact Info) Description 07/31/2024 5:00 PM CDT Appointment [facility] Therapy Services [address] [facility] 145 [place] [address] Chandler Spivey PA [address] [facility] [address] [place] [address] Maegan Duncan, Physical Therapist 08/02/2024 5:00 PM CDT Appointment [facility] Neuro Rehabilitation [place] [address] [facility] [place] [address] Jonathan Cortez MD [address] [facility] [address] [address] -x0 (Work) Sarah Estrada, RYAN 08/09/2024 5:00 PM CDT Appointment [facility] [address] [place] [address] Chandler Spivey PA [address] [facility] [address] [place] [address] Maegan Duncan, Physical Therapist 08/30/2024 3:30 PM CDT Office Visit [facility] Internal Medicine Medical [place] A [facility] [address] [facility] [address] [address] Juventino Howe MD [address] [facility] [address] [place] [address] 10/31/2024 3:00 PM CDT Office Visit [facility] Pulmonology [facility] [address] [facility] [address] [place] [address] Everett Cam MD [address] [facility] [address] [place] [address] 12/28/2024 2:45 PM UMBRELLA TIPPER MACHINE Office Visit [facility] Endocrinology [address] [facility] [address] [place] [address] Sheldon Canales MD [address] [facility] [address] [place] [address] 02/26/2025 3:10 PM UMBRELLA TIPPER MACHINE Office Visit [facility] Gastroenterology [facility] [address] [facility] [address] [place] [address] Suzette Cody MD [address] [facility] [address] [place] [address] documented as of this encounter Visit Diagnoses Diagnosis Abdominal or pelvic swelling, mass or lump, unspecified site- Primary documented in this encounter Additional Health Concerns Infection Onset Date Last Indicated Resolved Time R/O Respiratory 01/11/2023 01/11/2023 01/11/2023 7 :48 PM UMBRELLA TIPPER MACHINE R/O Respiratory 02/19/2024 02/19/2024 02/19/2024 1 1:21 AM UMBRELLA TIPPER MACHINE Influenza 02/19/2024 02/19/2024 02/26/2024 1:16 AM UMBRELLA TIPPER MACHINE R/O Respiratory 03/13/2024 03/13/2024 03/13/2024 4 :20 PM UMBRELLA TIPPER MACHINE Human Metapneumovirus 03/13/2024 03/13/20242024 1:16 AM UMBRELLA TIPPER MACHINE R/O C. diff 03/13/2024 03/13/2024 03/14/2024 8:00 PM UMBRELLA TIPPER MACHINE R/O C. diff 03/14/2024 03/14/2024 03/15/2024 6:17 PM UMBRELLA TIPPER MACHINE documented as of this encounter Care Teams Attendance Officer Relationship Specialty Start Date End Date Juventino Howe MD [address] [facility] [address] [place] [address] PCP - General Internal Medicine 11/04/11 documented as of this encounter
--- OUTSIDE RECORDS SUMMARY | 2024-07-26 18:07 | XMS_ITS | Encounter Summary ---
Author Organization [employer] Address [address] [place] [address] Care Team Providers Care Mail Sorter And Delivery Name Role Phone Juventino Howe MD Primary Care Provider [phone] Encounter Details Date Type Department Care Team (Latest Contact Info) Description 07/24/2008 Inpatient Historical HIS PATIENT IN A BED GrubbsChandraChhaya L, [address] [place], [place] [id number] Edwin Chavez MD [address] [place] [address] Abdominal Pain, Unspecified Site Social History Tobacco Use Types Packs/Day Years Used Date Smoking Tobacco: Never Alcohol Use Standard Drinks/Week Comments No 0 (1 standard drink = 0.6 oz pur e alcohol) Comments No Sex and Gender Information Value Date Recorded Sex Assigned at Not on file Legal Sex Female 3:38 AM BAR PILOT Gender Identity Not on file Sexual Orientation Not on file documented as of this encounter Plan of Treatment Upcoming Encounters Date Type Department Care Team (Late st Contact Info) Description 07/31/2024 5:00 PM CDT Appointment [facility] Therapy Services [place] [address] [facility] [address] [place] [address] Chandler Spivey PA [address] [facility] [address] [place] [address] Maegan Duncan, Physical Therapist 08/02/2024 5:00 PM CDT Appointment [facility] Neuro Rehabilitation [place] [address] [facility] [place] [address] Jonathan Cortez MD [address] [place] [address] -x0 (Work) Sarah Estrada, SOD STRIPPER 08/09/2024 5:00 PM CDT Appointment [facility] Services [place] [address] [facility] [address] [place] [address] Chandler Spivey PA [address] [facility] [address] [place] [address] Maegan Duncan, Physical Therapist 08/30/2024 3:30 PM CDT Office Visit [facility] Internal Medicine Medical [place] [facility] [address] [address] Juventino Howe MD [address] [place] [address] 10/31/2024 3:00 PM CDT Office Visit [facility] Pulmonology [facility] [address] [place] [address] Everett Cam MD [address] [place] [address] 12/28/2024 2:45 PM BAR PILOT Office Visit [facility] Endocrinology [address] [place] [address] Sheldon Canales MD [address] [facility] [address] [place] [address] 02/26/2025 3:10 PM BAR PILOT Office Visit [facility] Gastroenterology [facility] [address] [place] [address] [place] [address] Suzette Cody MD [address] [place] [address] [place] [address] documented as of this encounter Procedures Procedure Name Priority Date/Time Associated Diagnosis Comments TSH REFLEXIVE Routine 07/27/2008 5:10 AM CDT SCLERODERMA ANTIBODY SCL 70 Routine 07/27/2008 5:10 AM CDT HU ANTIBODY Routine 07/27/2008 5:10 AM CDT CBC WITH DIFFERENTIAL Routine 07/27/2008 5:10 AM CDT COLTON SCREEN W/REFLEX Routine 07/27/2008 5 :10 AM CDT PROTEIN ELECTROPHORESIS W/REFLEX,SERUM Routine 07/27/2008 5:10 AM CDT PHOSPHORUS Routine 07/27/2008 5:10 AM CDT MAGNESIUM LEVEL Routine 07/27/2008 5:10 AM CDT LIPASE Routine 07/27/2008 5:10 AM CDT BASIC METABOLIC PANEL Routine 07/27/2008 5:10 AM CDT NM GASTRIC EMPTYING Routine 07/26/2008 9 :24 AM CDT XR BARIUM ENEMA Timed Study 07/26/2008 8:30 AM CDT MRI ABDOMEN PELVIS W WO CONT Routine 07/25/2008 7:39 PM CDT OCCULT BLOOD GUAIAC DIAGNOSTIC Routine 07/25/2008 4:05 PM CDT PATHOLOGY Routine 07/25/2008 12:23 PM CDT VITAMIN D 25 HYDROXY Routine 07/25/2008 4:36 AM CDT C-REACTIVE PROTEIN Routine 07/25/2008 4: 36 AM CDT LIPASE Routine 07/25/2008 4:36 AM CDT AMYLASE Routine 07/25/2008 4:36 AM CDT URINALYSIS WITH MICROSCOPIC Routine 07/24/2008 12:23 PM CDT URINE CULTURE Routine 07/24/2008 12:23 PM CDT CBC WITH DIFFERENTIAL Routine 07/24/2008 12:20 PM CDT COMPREHENSIVE METABOLIC PANEL Routine 07/24/2008 12:20 PM CDT documented in this encounter Results * COLTON (07/27/2008 5:10 AM CDT) Pathologist [facility] COLTON SCREEN NEGATIVE NEGATIVE [facility] Comment: A NEGATIVE ANACHOICE(TM) INDICATES THE ABSENCE OF DETECTABLE ANTIBODIES TO COMPONENT ANALYTES CONSISTING OF DSDNA, CHROMATIN, SAP MANAGER, SM/SAP MANAGER, SM, SSA, SSB, NADEEN-1, CENTROMERE B, SCL-70 AND RIBOSOMAL P. A NEGATIVE ANACHOICE(TM) SHOULD BE INTERPRETED IN THE CONTEXT OF THE CLINICAL AND LABORATORY FINDINGS, AND DOES NOT RULE OUT AUTOIMMUNE DISEASE CHARACTERIZED BY OTHER AUTOANTIBODY SPECIFICITIES INCLUDING AUTOIMMUNE HEPATITIS AND PRIMARY BILIARY CIRRHOSIS. Lab test performed by: [facility] [address] [place] [address] CATALINO ALTAMIRANO MD 07/27/2008 5:10 AM CDT 07/27/2008 5:46 AM CDT us Lynne Escobar MD CHEMISTRY ORDERABLES Final Resu lt INTERFACE SYSTEM Refer to clinic/hospital department [facility] CLIA# [id number] [address] [place] [address] * HU ANTIBODY (07/27/2008 5:10 AM CDT) [facility] HU AB NEGATIVE [facility] Comment: Reference Range: NEGATIVE Neuronal nuclear (Hu) antibody is present in patients with various neurological symptoms including two paraneoplastic syndromes: sensory neuropathy (PSN) and encephalomyelitis (PEM). The presence of Hu antibody strongly suggests underlying small cell lung carcinoma (SCLC). Hu antibody is identified by IFA and confirmed by Western Blot. A negative result does not exclude the possibility of a SCLC or other malignant tumor. This test was developed and its performance characteristics have been determined by [facility]. It has not been cleared or approved by the U.S. Food and Drug Administration. The FDA has determined that such clearance or approval is not necessary. Performance characteristics refer to the analytical performance of the test. Lab test performed by: [facility] [id number] [place] [phone] VICKY CARBAJAL M.D.,PH.D. HU ANTIBODY WB Not Performed [facility] Comment: * SUPPLEMENTAL TESTING * * NOT PERFORMED. * Lab test performed by: [facility] [id number] [place] [phone] VICKY CARBAJAL M.D.,PH.D. HU AB TITER Not Performed Titer [facility] Comment: Reference Range: LESS THAN 1:40 TNP-Screening test negative. Titer not performed. Lab test performed by: [facility] [id number] [place] [phone] VICKY CARBAJAL M.D.,PH.D. 07/27/2008 5:10 AM CDT 07/27/2008 5:46 AM CDT Lynne Escobar MD CHEMISTRY ORDERABLES Edited INTERFACE SYSTEM Refer to clinic/hospital department [facility] CLIA# [id number] [address] [place] [address] * SCLERODERMA ANTIBODY SCL 70 (07/27/2008 5:10 AM CDT) Pathologist [facility] SCLERODERMA AB SCL 70 <1.0 NEG <1.0 NEG Index [facility] Comment: Lab test performed by: [facility] [address] [address] CATALINO ALTAMIRANO MD 07/27/2008 5:10 AM CDT 07/27/2008 5:46 AM CDT Lynne Escobar MD CHEMISTRY ORDERABLES Final Resu lt INTERFACE SYSTEM Refer to clinic/hospital department [facility] CLIA# [id number] [address] [place] [address] * (ABNORMAL) PROTEIN ELECTROPHORESIS, SERUM (07/27/2008 5:10 AM CDT) [facility] PROTEIN TOTAL, SPE 5.6(L) 6.0 - 8.3 g/dL [facility] ALPHA 1 GLOBULIN SPE 0.12 0.12 - 0.30 g/dL [facility] ELECTROPHORESIS INTERP BY: Estevan Gore MD [facility] GAMMA GLOBULIN 0.50(L) 0.60 - 1.33 g/dL [facility] ALPHA 2 GLOBULIN SPE 0.66 0.50 - 1.01 g/dL [facility] ALBUMIN SPE 3.61 3.60 - 5.00 g/dL [facility] SPE INTERP Recommend urine electrophoresis to rule out Bence Arreaga protein. Hypogammaglobuline fabi is present; may be seen in immune deficient,chemothe rapy,or B-cell neoplasm. No monoclonal gammopathy identified by immunofixation. [facility] BETA GLOBULIN 0.72 0.60 - 1.05 g/dL [facility] 07/27/2008 5:10 AM CDT 07/27/2008 5:46 AM CDT us Lynne Escobar MD CHEMISTRY ORDERABLES Edited Performing Organization Address [facility] Phone Number INTERFACE SYSTEM Refer to clinic/hospital department [facility] CLIA# [id number] [address] [place] [address] * TSH REFLEXIVE (07/27/2008 5:10 AM CDT) TSH 1.25 0.27 - 4.20 uU/mL [facility] 07/27/2008 5:10 AM CDT 07/27/2008 5:46 AM CDT us Lynne Escobar MD CHEMISTRY ORDERABLES Final Resu lt Performing Organization Address [facility] Phone Number INTERFACE SYSTEM Refer to clinic/hospital department [facility] CLIA# [id number] [address] [place] [address] * LIPASE (07/27/2008 5:10 AM CDT) LIPASE 38 13 - 60 U/L [facility] 07/27/2008 5:10 AM CDT 07/27/2008 5:46 AM CDT us Lynne Escobar MD CHEMISTRY ORDERABLES Final Resu lt Performing Organization Address [facility] Phone Number INTERFACE SYSTEM Refer to clinic/hospital department [facility] CLIA# [id number] [address] [place] [address] * PHOSPHORUS (07/27/2008 5:10 AM CDT) PHOSPHORUS 4.1 2.5 - 4.5 mg/dL [facility] 07/27/2008 5:10 AM CDT 07/27/2008 5:46 AM CDT us Lynne Escobar MD CHEMISTRY ORDERABLES Final Resu lt Performing Organization Address [facility] de Phone Number INTERFACE SYSTEM Refer to clinic/hospital department [facility] CLIA# [id number] [address] [place] [address] * MAGNESIUM LEVEL (07/27/2008 5:10 AM CDT) MAGNESIUM 1.9 1.5 - 2.5 mg/dL [facility] 07/27/2008 5:10 AM CDT 07/27/2008 5:46 AM CDT us Lynne Escobar MD CHEMISTRY ORDERABLES Final Resu Performing Organization Address [facility] Phone Number INTERFACE SYSTEM Refer to clinic/hospital department [facility] CLIA# [id number] [address] [place] [address] * BASIC METABOLIC PANEL (07/27/2008 5:10 AM CDT) CHLORIDE 108 96 - 108 mmol/L [facility] GLUCOSE 77 65 - 99 mg/dL [facility] SODIUM 141 135 - 145 mmol/L [facility] CALCIUM 8.9 8.6 - 10.2 mg/dL [facility] CO2 23 22 - 30 mmol/L [facility] CREATININE 0.75 0.51 - 0.95 mg/dL [facility] POTASSIUM 3.5 3.5 - 4.9 mmol/L [facility] BUN 6 6 - 20 mg/dL [facility] GFR, >60 >=60 mL/min/1.7 sq meter [facility] GFR >60 >=60 mL/min/1.7 sq meter [facility] Comment: Modification of Diet in Renal Disease (MDRD) study formula. Estimated GFR rate interpretative information for both Americans and non- Americans is available on the [facility] Intranet at: [email or web address] Select: Lab Policies and Procedures Select: Reference Ranges - GFR 07/27/2008 5:10 AM CDT 07/27/2008 5:46 AM CDT us Lynne Escobar MD CHEMISTRY ORDERABLES Edited INTERFACE SYSTEM Refer to clinic/hospital department [facility] CLIA# [id number] [address] [place], [place] [address] * CBC WITH DIFFERENTIAL (07/27/2008 5:10 AM CDT) HEMATOCRIT 39.1 35.5 - 44.0 % [facility] RDW-STDEV 44.4 37.1 - 48.7 fL [facility] RBC 4.13 3.90 - 4.90 M/uL [facility] MCHC 33.8 31.5 - 35.5 % [facility] MCV 94.7 82.0 - 99.0 fL [facility] PLATELETS 229 140 - 350 K/uL [facility] HEMOGLOBIN 13.2 11.8 - 14.8 g/dL [facility] RDW 12.9 11.5 - 14.5 % [facility] WBC 7.5 4.0 - 9.8 K/uL [facility] MCH 32.0 27.2 - 32.6 pg [facility] MPV 11.3 9.3 - 12.4 fL [facility] BASOPHILS 1 0 - 2 % [facility] BASOPHILS ABSOLUTE 0.04 0.00 - 0.20 K/uL [facility] MONOCYTES 6 3 - 13 % [facility] MONOCYTE ABSOLUTE 0.42 0.10 - 1.30 K/uL [facility] NEUTROPHILS 47 45 - 70 % [facility] NEUTROPHIL ABSOLUTE 3.55 1.90 - 7.00 K/uL [facility] EOSINOPHILS 2 0 - 7 % [facility] EOSINOPHIL ABSOLUTE 0.17 0.00 - 0.70 K/uL [facility] LYMPHOCYTES 45 16 - 45 % [facility] LYMPHOCYTE ABSOLUTE 3.36 0.70 - 4.50 K/uL [facility] 07/27/2008 5:10 AM CDT 07/27/2008 5:46 AM CDT us Lynne Escobar MD HEMATOLOGY ORDERABLES Edited INTERFACE SYSTEM Refer to clinic/hospital department [facility] CLIA# [id number] [address] [place] [address] * NM GASTRIC EMPTYING (07/26/2008 9:24 AM CDT) Anatomical Region Laterality Modality Abdomen Other 07/26/2008 9:24 AM CDT Narrative 07/26/2008 3:37 PM CDT [facility] [address] [place], [place] [address] Admit Date: 07/24/2008 DUYEN OROSCO Sex: F Admit Prov: CHHAYA ZHAO Date: 1960 Primary Care Prov: PCP, NONE CMRN: [id number] Room: [place] [address] SSN: [id number] IMAGING SERVICES Ordering Prov: N/A Accession Number: [id number] Interpretation Gastric emptying, solid meal History: 48-year-old with abdominal pain. Constipation. Possible colonic dysmotility. Nausea. Findings: Using a standard [employer] egg sandwich meal, with toast and jelly and water gastric emptying was measured over 4 hours. Gastric Percent-retained: 2 hours: 67 % (normal < 60%) 3 hours: 47 % (normal < 21%) 4 hours 25 % (normal < 10%) Imaging: There is normal intragastric transit of the meal. Impression: Abnormal gastric emptying. Finding consistent with nondiabetic gastroparesis. Dose: 0.5 mCi technetium 99m sulfur colloid in egg sandwich. . Dictated by: ADARSH SANDERS 07/26/2008 14:49 Electronically signed by: ADARSH SANDERS 07/26/2008 14:52 Procedure Note Adarsh Sanders MD - 07/26/[address] [address] Admit Date: 07/24/2008 DUYEN OROSCO Sex: F Admit Prov: CHHAYA ZHAO Date: 1960 Primary Care Prov: PCP, NONE CMRN: [id number] Room: [place] [address] SSN: [id number] IMAGING SERVICES Ordering Prov: N/A Interpretation Gastric emptying, solid meal History: 48-year-old with abdominal pain. Constipation. Possiblecolonic dysmotility. Nausea. Findings: Using a standard [employer] egg sandwich meal, with toastand jelly and water gastric emptying was measured over 4 hours. Gastric Percent-retained: 2 hours: 67 % (normal < 60%) 3 hours: 47 % (normal < 21%) 4 hours 25 % (normal < 10%) Imaging: There is normal intragastric transit of the meal. Impression: Abnormal gastric emptying. Finding consistent with nondiabetic gastroparesis. Dose: 0.5 mCi technetium 99m sulfur colloid in egg sandwich. . Dictated by: ADARSH SANDERS 07/26/2008 14:49 Electronically signed by: ADARSH SANDERS 07/26/2008 14:52 Chhaya THEODORE ORDERABLES Final Result * XR BARIUM ENEMA (07/26/2008 8:30 AM CDT) Anatomical Region Laterality Modality Abdomen Other 07/26/2008 8:30 AM CDT Narrative 07/26/2008 11:27 AM CDT [facility] [address] [place], [place] [address] Admit Date: 07/24/2008 DUYEN OROSCO Sex: F Admit Prov: CHHAYA ZHAO Date: 1960 Primary Care Prov: PCP, NONE CMRN: [id number] Room: [place] [address] SSN: [id number] IMAGING SERVICES Ordering Prov: N/A Accession Number: [id number] Interpretation WATER-SOLUBLE CONTRAST ENEMA EXAMINATION OF THE COLON, 07/26/2008 CLINICAL HISTORY: Abdominal pain. A preliminary abdominal drill instructor radiograph is not remarkable except for surgical clips in the right upper quadrant. Enema examination of the colon was performed using water-soluble Cysto- Conray contrast in the usual retrograde fashion. There is good contrast filling and distention of the entire colon including the cecum, with moderate reflux filling of the terminal ileum. There is moderate stool retention within the colon, especially within the right colon, at the beginning of the exam. The colon is generally smooth in outline and there are sparse colonic diverticula present. Gross evidence of mass or obstructing lesion of the colon is not seen. There is moderate emptying on the postevacuation radiograph. IMPRESSION: Sparse colonic diverticula. Moderate stool retention and otherwise negative water-soluble contrast enema examination of the colon. . Dictated by: MAYANK BECKER 07/26/2008 09:34 Electronically signed by: MAYANK BECKER 07/26/2008 11:26 Transcribed: 07/26/2008 11:15 DKT Procedure Note Mayank Becker MD - 07/26/2008 [facility] [address] [place], [place] [address] Admit Date: 07/24/2008 DUYEN OROSCO Sex: F Admit Prov: CHHAYA ZHAO Date: 1960 Primary Care Prov: PCP, NONE CMRN: [id number] Room: [place] [address] SSN: [id number] IMAGING SERVICES Ordering Prov: N/A Interpretation WATER-SOLUBLE CONTRAST ENEMA EXAMINATION OF THE COLON, 07/26/2008 CLINICAL HISTORY: Abdominal pain. A preliminary abdominal drill instructor radiograph is not remarkable exceptfor surgical clips in the right upper quadrant. Enema examination of the colon was performed using water-solubleCysto- Conray contrast in the usual retrograde fashion. There is goodcontrast filling and distention of the entire colon including the cecum,with moderate reflux filling of the terminal ileum. There is moderatestool retention within the colon, especially within the right colon, atthe beginning of the exam. The colon is generally smooth in outline andthere are sparse colonic diverticula present. Gross evidence of mass or obstructing lesion of the colon is not seen. There is moderateemptying on the postevacuation radiograph. IMPRESSION: Sparse colonic diverticula. Moderate stool retention and otherwise negative water-solublecontrast enema examination of the colon. . Dictated by: MAYANK BECKER 07/26/2008 09:34 Electronically signed by: MAYANK BECKER 07/26/2008 11:26 Transcribed: 07/26/2008 11:15 DKT Chhaya Grubbs DO DIAGNOSTIC IMAGING ORDERABLES Final Result * MRI ABDOMEN PELVIS W WO CONT (07/25/2008 7:39 PM CDT) Anatomical Region Laterality Modality Abdomen Other 07/25/2008 7:39 PM CDT Narrative 07/26/2008 8:20 AM CDT [address] [address] Admit Date: 07/24/2008 DUYEN OROSCO Sex: F Admit Prov: CHHAYA ZHAO Date: 1960 Primary Care Prov: PCP, NONE CMRN: [id number] Room: [place] [address] SSN: [id number] IMAGING SERVICES Ordering Prov: N/A Accession Number: [id number] Interpretation MR abdomen and pelvis with and without contrast 07/25/2008 . History: Abdominal pain . Technique: Axial and coronal FIESTA fat-sat images, axial in phase and out phase images, contrast dynamic study were obtained through the abdomen. Axial and coronal FIESTA fat-sat images, axial in-phase and out of phase images and axial postgadolinium T1-weighted fat-sat images were obtained through the pelvis. Abdomen findings: The liver, spleen, pancreas and adrenal glands are unremarkable. Kidneys enhance normally without focal lesion or hydronephrosis. No intraperitoneal free fluid is seen. No retroperitoneal adenopathy is identified. No bowel obstruction is seen. Impression: No evidence of acute abnormality. MRI pelvic findings: The uterus is absent. The urinary bladder is unremarkable. No pelvic mass or lymphadenopathy is identified. The visualized bony structures are intact. Impression: No evidence of acute abnormality. . Dictated by: LEONORA MCLEAN 07/26/2008 08:14 Electronically signed by: LEONORA MCLEAN 07/26/2008 08:19 Procedure Note Leonora Patel MD - 07/26/2008 [place] [id number] [place], [place] [address] Admit Date: 07/24/2008 RASHARDMckaylaDUYEN Sex: F Admit Prov: CHHAYA ZHAO Date: 1960 Primary Care Prov: PCP, NONE CMRN: [id number] Room: [place] [address] SSN: [id number] IMAGING SERVICES Ordering Prov: N/A Interpretation MR abdomen and pelvis with and without contrast 07/25/2008 . History: Abdominal pain . Technique: Axial and coronal FIESTA fat-sat images, axial in phaseand out phase images, contrast dynamic study were obtained through theabdomen. Axial and coronal FIESTA fat-sat images, axial in-phase and out ofphase images and axial postgadolinium T1-weighted fat-sat images wereobtained through the pelvis. Abdomen findings: The liver, spleen, pancreas and adrenal glandsare unremarkable. Kidneys enhance normally without focal lesion or hydronephrosis. No intraperitoneal free fluid is seen. Noretroperitoneal adenopathy is identified. No bowel obstruction is seen. Impression: No evidence of acute abnormality. MRI pelvic findings: The uterus is absent. The urinary bladder is unremarkable. No pelvic mass or lymphadenopathy is identified. The visualized bony structures are intact. Impression: No evidence of acute abnormality. . Dictated by: LEONORA MCLEAN 07/26/2008 08:14 Electronically signed by: LEONORA MCLEAN 07/26/2008 08:19 Chhaya Grubbs DO MR ORDERABLES Final Result * OCCULT BLOOD, STOOL (07/25/2008 4:05 PM CDT) OCCULT BLOOD, STOOL Negative Negative [facility] 07/25/2008 4:05 PM CDT 07/25/2008 4:07 PM CDT Kaci Tim MD BODY FLUIDS AND STOO LS Final Result Performing Organization Address City/State/[facility] Co de Phone Number INTERFACE SYSTEM Refer to clinic/hospital department [facility] CLIA# [id number] [address] [place] [address] * PATHOLOGY (07/25/2008 12:23 PM CDT) FINAL REPORT [address] [address] Patient: DUYEN OROSCO : 1960 Procedure Date: 07/25/2008 Accession Date: 07/25/2008 Case No: [id number] Ordering Dr: LYNNE ESCOBAR Case types AW, BW, FW, NW and SH are performed by [place], [place] SURGICAL PATHOLOGY & NON-GYNECOLOGIC CYTOPATHOLOGY REPORT DIAGNOSIS SMALL INTESTINE, BIOPSY: - NO SIGNIFICANT HISTOPATHOLOGIC ABNORMALITIES. STOMACH, ANTRUM, BIOPSY: - NO SIGNIFICANT HISTOPATHOLOGIC ABNORMALITIES. Specimen Description: (1) Small bowel duodenum biopsy; (2) gastric antrum biopsy. Operative Procedure: EGD. Patient Information/Histor y/Diagnosis: (1) Small bowel Bx. Rule out sprue (chronic diarrhea and/or Fe-deficiency anemia). (2) Gastritis. Gross: Received are two containers labeled Duyen Orosco. Received in the first container, additionally labeled small bowel duodenum biopsy are two pieces of hernandez tissue, each 0.3 cm. Both are submitted in blocks A1. Received in the second container labeled gastric antrum biopsy is a 0.3 x 0.2 x 0.1 cm piece of hernandez tissue. It is submitted in block B1. [facility] 07.25.2008 03:38 pm Microscopic: The slides are labeled [id number] and Duyen Orosco. The small bowel biopsy consists of small intestinal mucosa with normal villous architecture and no significant inflammation or lymphocytosis. The stomach biopsy consists of gastric antral mucosa with normal glandular architecture and no significant inflammation. Organisms morphologically consistent with Helicobacter pylori are not identified. BENITEZ/ABELINO 07.26.2008 10:43 am Staging Form: No. ELECTRONIC SIGNATURE FOR HEIDY BRAGA M.D.- 07/26/08 04:36 pm INTERFACE SYSTEM ADDENDUM REPORT [address] [address] Patient: DUYEN OROSCO : 1960 Procedure Date: 07/25/2008 Accession Date: 07/25/2008 Case No: [id number] Ordering Dr: LYNNE ESCOBAR Case type SW is performed by [facility], [place], [place]; all other case types are performed by [facility], [place], [place] ADDENDUM REPORT NOTE: At the request of Dr. Escobar, special stains for amyloid are performed. There is no evidence of amyloid in either biopsy on [place] Red or trichrome stains. BENITEZ/YESSICA 08.28.08 ELECTRONIC SIGNATURE FOR HEIDY BRAGA M.D. - 08/28/08 03:48 pm INTERFACE SYSTEM 07/25/2008 12:2 3 PM CDT us Lynne Escobar MD PATHOLOGY/CYTOLOGY ORDERABLES E dited INTERFACE SYSTEM Refer to clinic/hospital department * VITAMIN D 25 HYDROXY (07/25/2008 4:36 AM CDT) VITAMIN D, 25 OH, D3 5 ng/mL [facility] Comment: 25-OHD3 indicates both endogenous production and supplementation. 25-OHD2 is an indicator of exogenous sources such as diet or supplementation. Therapy is based on measurement of Total 25-OHD, with levels <20 ng/mL indicative of Vitamin D deficiency while levels between 20 ng/mL and 30 ng/mL suggest insufficiency. Optimal levels are >30 ng/mL. Lab test performed by: [employer] [address] [address] [address] GAY UGALDE VITAMIN D, 25 OH, TOTAL 39 20 - 100 ng/mL [facility] VITAMIN D, 25 OH, D2 34 ng/mL [facility] 07/25/2008 4:36 AM CDT 07/25/2008 5:27 AM CDT us Lynne Escobar MD CHEMISTRY ORDERABLES Final Resu lt Performing Organization Address City/[facility] Co de Phone Number INTERFACE SYSTEM Refer to clinic/hospital department [facility] CLIA# [id number] [address] [place] [address] * (ABNORMAL) LIPASE (07/25/2008 4:36 AM CDT) LIPASE 64(H) 13 - 60 U/L [facility] 07/25/2008 4:36 AM CDT 07/25/2008 5:27 AM CDT us Lynne Escobar MD CHEMISTRY ORDERABLES Final Resu lt INTERFACE SYSTEM Refer to clinic/hospital department [facility] CLIA# [id number] [address] [place] [place] [address] * AMYLASE (07/25/2008 4:36 AM CDT) AMYLASE 35 28 - 100 U/L [facility] 07/25/2008 4:36 AM CDT 07/25/2008 5:27 AM CDT us Lynne Escobar MD CHEMISTRY ORDERABLES Final Resu lt Performing Organization Address [facility] Phone Number INTERFACE SYSTEM Refer to clinic/hospital department [facility] CLIA# [id number] [address] [facility] [place] [address] * C-REACTIVE PROTEIN (07/25/2008 4:36 AM CDT) [facility] CRP <0.2 0.0 - 0.8 mg/dL [facility] 07/25/2008 4:36 AM CDT 07/25/2008 5:27 AM CDT us Lynne Escobar MD CHEMISTRY ORDERABLES Final Resu lt Performing Organization Address [facility] Phone Number INTERFACE SYSTEM Refer to clinic/hospital department [facility] CLIA# [id number] [address] [place] [address] * URINALYSIS WITH MICROSCOPIC (07/24/2008 12:23 PM CDT) COLOR UA Colorless [facility] NITRITE UA Negative Negative [facility] UROBILINOGEN UA <1 <=1 mg/dL [facility] EPITHELIAL CELLS, URINE 0-2 /HPF [facility] PH UA 5.0 5.0 - 8.0 [facility] KETONES UA Negative Negative [facility] WBC UA None Seen 0 - 5 /HPF [facility] CLARITY UA Clear Clear [facility] PROTEIN UA Negative Negative [facility] BILIRUBIN UA Negative Negative [facility] LEUKOCYTE ESTERASE UA Negative Negative [facility] RBC UA None Seen 0 - 4 [facility] SPECIFIC GRAVITY UA 1.003 1.001 - 1.035 [facility] Comment:Verified by repeat a nalysis. BLOOD UA Negative Negative [facility] GLUCOSE UA Negative Negative [facility] 07/24/2008 12:2 3 PM CDT 07/24/2008 12:50 PM CDT Bubble Motion Grubbs DO URINE ORDERABLES Final Result Performing Organization Address [facility] Phone Number INTERFACE SYSTEM Refer to clinic/hospital department [facility] CLIA# [id number] [address] [place] [address] * URINE CULTURE (07/24/2008 12:23 PM CDT) PRELIMINARY REPORT Pending [facility] FINAL REPORT Polymicrobial growth present consistent with urethral claudia and/or colonizing bacteria. [facility] 07/24/2008 12:2 3 PM CDT 07/24/2008 1:07 PM CDT Bubble Motion Grubbs DO MICROBIOLOGY - GENERAL ORDERA BLES Final Result Performing Organization Address [facility] de Phone Number INTERFACE SYSTEM Refer to clinic/hospital department [facility] CLIA# [id number] [address] [place] [address] * (ABNORMAL) COMPREHENSIVE METABOLIC PANEL (07/24/2008 12:20 PM CDT) ALKALINE PHOSPHATASE 118(H) 35 - 104 U/L [facility] CO2 25 22 - 30 mmol/L [facility] BILIRUBIN TOTAL 0.3 0.2 - 1.0 mg/dL [facility] POTASSIUM 3.7 3.5 - 4.9 mmol/L [facility] TOTAL PROTEIN 6.9 6.3 - 8.6 g/dL [facility] GLUCOSE 86 65 - 99 mg/dL [facility] AST 18 12 - 32 U/L [facility] BUN 6 6 - 20 mg/dL [facility] CALCIUM 9.7 8.6 - 10.2 mg/dL [facility] ALBUMIN 4.4 3.4 - 4.8 g/dL [facility] CHLORIDE 102 96 - 108 mmol/L [facility] CREATININE 0.62 0.51 - 0.95 mg/dL [facility] ALT 20 0 - 31 U/L [facility] SODIUM 139 135 - 145 mmol/L [facility] GFR, >60 >=60 mL/min/1. 7 sq meter [facility] GFR >60 >=60 mL/min/1. 7 sq meter [facility] Comment: Modification of Diet in Renal Disease (MDRD) study formula. Estimated GFR rate interpretative information for both Americans and non- Americans is available on the [facility] Intranet at: [email or web address] Select: Lab Policies and Procedures Select: Reference Ranges - GFR 07/24/2008 12:2 0 PM CDT 07/24/2008 12:28 PM CDT us Chhaya Grubbs DO CHEMISTRY ORDERABLES Edited INTERFACE SYSTEM Refer to clinic/hospital department [facility] CLIA# [id number] [address] [place], [place] [address] * (ABNORMAL) CBC WITH DIFFERENTIAL (07/24/2008 12:20 PM CDT) HEMOGLOBIN 15.3(H) 11.8 - 14.8 g/dL [facility] RDW 13.0 11.5 - 14.5 % [facility] WBC 10.7(H) 4.0 - 9.8 K/uL [facility] MCH 32.7(H) 27.2 - 32.6 pg [facility] MPV 11.0 9.3 - 12.4 fL [facility] HEMATOCRIT 44.4(H) 35.5 - 44.0 % [facility] RDW-STDEV 44.8 37.1 - 48.7 fL [facility] RBC 4.68 3.90 - 4.90 M/uL [facility] MCHC 34.5 31.5 - 35.5 % [facility] MCV 94.9 82.0 - 99.0 fL [facility] PLATELETS 285 140 - 350 K/uL [facility] EOSINOPHILS 1 0 - 7 % [facility] EOSINOPHIL ABSOLUTE 0.12 0.00 - 0.70 K/uL [facility] LYMPHOCYTES 37 16 - 45 % [facility] LYMPHOCYTE ABSOLUTE 3.93 0.70 - 4.50 K/uL [facility] BASOPHILS 0 0 - 2 % [facility] BASOPHILS ABSOLUTE 0.04 0.00 - 0.20 K/uL [facility] MONOCYTES 5 3 - 13 % [facility] MONOCYTE ABSOLUTE 0.55 0.10 - 1.30 K/uL [facility] NEUTROPHILS 56 45 - 70 % [facility] NEUTROPHIL ABSOLUTE 6.02 1.90 - 7.00 K/uL [facility] 07/24/2008 12:2 0 PM CDT 07/24/2008 12:28 PM CDT us Chhaya Jayne Grubbs DO HEMATOLOGY ORDERABLES Edited INTERFACE SYSTEM Refer to clinic/hospital department [facility] CLIA# [id number] [address] [place] [address] documented in this encounter Visit Diagnoses Diagnosis Abdominal pain, unspecified site documented in this encounter Additional Health Concerns Infection Onset Date Last Indicated Resolved Time R/O Respiratory 01/11/2023 01/11/2023 01/11/2023 7 :48 PM BAR PILOT R/O Respiratory 02/19/2024 02/19/2024 02/19/2024 1 1:21 AM BAR PILOT Influenza 02/19/2024 02/19/2024 02/26/2024 1:16 AM BAR PILOT R/O Respiratory 03/13/2024 03/13/2024 03/13/2024 4 :20 PM BAR PILOT Human Metapneumovirus 03/13/2024 03/13/20242024 1:16 AM BAR PILOT R/O C. diff 03/13/2024 03/13/2024 03/14/2024 8:00 PM BAR PILOT R/O C. diff 03/14/2024 03/14/2024 03/15/2024 6:17 PM BAR PILOT documented as of this encounter Care Teams Mail Sorter And Delivery Relationship Specialty Start Date End Date Juventino Howe MD [address] [place] [address] PCP - General Internal Medicine 11/04/11 documented as of this encounter
--- OUTSIDE RECORDS SUMMARY | 2024-07-26 18:07 | XMS_ITS | Encounter Summary ---
Author Organization [facility] Address [address] [place] [address] Care Team Providers Care Concrete Inspector Name Role Phone Juventino Howe MD Primary Care Provider [phone] Encounter Details Date Type Department Care Team (Latest Contact Info) Description 10/13/2006 Outpatient Historical HIS [facility] Lynne Navarro MD [address] [place] [address] Unspecified Constipation (Primary Dx) Social History Tobacco Use Types Packs/Day Years Used Date Smoking Tobacco: Never Assessed Comments Unknown Sex and Gender Information Value Date Recorded Sex Assigned at Not on file Legal Sex Female 3:38 AM LIBRARIAN ASSISTANT Gender Identity Not on file Sexual Orientation Not on file documented as of this encounter Plan of Treatment Upcoming Encounters Date Type Department Care Team (Late st Contact Info) Description 07/31/2024 5:00 PM CDT Appointment [facility] Therapy Services [address] [address] Chandler Spivey PA [address] [facility] [address] [place] [address] Maegan Duncan, Physical Therapist 08/02/2024 5:00 PM CDT Appointment [facility] Neuro Rehabilitation [place] [address] [facility] [place] [address] Jonathan Cortez MD [address] [facility] [address] [address] -x0 (Work) Sarah Estrada, CHOIR ACCOMPANIST 08/09/2024 5:00 PM CDT Appointment [facility] [address] [facility] [address] [place] [address] Chandler Spivey PA [address] [facility] [address] [place] [address] Maegan Duncan, Physical Therapist 08/30/2024 3:30 PM CDT Office Visit [facility] Internal Medicine Medical [place] [address] [facility] [address] [facility] [address] [place] [address] Juventino Howe MD [address] [facility] [address] [place] [address] 10/31/2024 3:00 PM CDT Office Visit [facility] Pulmonology [facility] [address] [facility] [address] [place] [address] Everett Cam MD [address] [facility] [address] [place] [address] 12/28/2024 2:45 PM LIBRARIAN ASSISTANT Office Visit [facility] Endocrinology [address] [facility] [address] [place] [address] Sheldon Canales MD [address] [facility] [address] [place] [address] 02/26/2025 3:10 PM LIBRARIAN ASSISTANT Office Visit [facility] Gastroenterology [facility] [address] [facility] [address] [place] [address] Suzette Cody MD [address] [facility] [address] [place] [address] documented as of this encounter Procedures Procedure Name Priority Date/Time Associated Diagnosis Comments CBC WITH DIFFERENTIAL Routine 10/13/2006 3:33 PM CDT CBC WITH DIFFERENTIAL Routine 10/13/2006 3:33 PM CDT C-REACTIVE PROTEIN Routine 10/13/2006 3: 33 PM CDT COMPREHENSIVE METABOLIC PANEL Routine 10/13/2006 3:33 PM CDT documented in this encounter Results * (ABNORMAL) CBC WITH DIFFERENTIAL (10/13/2006 3:33 PM CDT) NEUTROPHILS 49 45 - 70 % INTERFAC E SYSTEM LYMPHOCYTES 44 16 - 45 % INTERFAC E SYSTEM MONOCYTES 6 3 - 13 % INTERFACE SYSTEM EOSINOPHILS 1 0 - 7 % INTERFAC E SYSTEM BASOPHILS 0 0 - 2 % INTERFACE SYSTEM NEUTROPHIL ABSOLUTE 5.50 1.90 - 7.00 K/uL INTERFACE SYSTEM LYMPHOCYTE ABSOLUTE 4.92(H) 0.70 - 4.50 K/uL INTERFACE SYSTEM MONOCYTE ABSOLUTE 0.72 0.10 - 1.30 K/uL INTERFACE SYSTEM EOSINOPHIL ABSOLUTE 0.14 0.00 - 0.70 K/uL INTERFACE SYSTEM BASOPHILS ABSOLUTE 0.04 0.00 - 0.20 K/uL INTERFACE SYSTEM 10/13/2006 3:33 PM CDT Lynne Escobar MD HEMATOLOGY ORDERABLES Edited INTERFACE SYSTEM Refer to clinic/hospital department * (ABNORMAL) CBC WITH DIFFERENTIAL (10/13/2006 3:33 PM CDT) WBC 11.3(H) 4.0 - 9.8 K/uL INTERFACE SYSTEM RBC 4.50 3.90 - 4.90 M/uL INTERFACE SYSTEM HEMOGLOBIN 14.4 11.8 - 14.8 g/dL INTERFACE SYSTEM HEMATOCRIT 40.2 35.5 - 44.0 % INTERFACE SYSTEM MCV 89.3 82.0 - 99.0 fL INTERFACE SYSTEM MCH 32.0 27.2 - 32.6 pg INTERFACE SYSTEM MCHC 35.8(H) 31.5 - 35.5 % INTERFACE SYSTEM RDW 12.8 11.5 - 14.5 % INTERFACE SYSTEM RDW-STDEV 41.4 37.1 - 48.7 fL INTERFACE SYSTEM PLATELETS 294 140 - 350 K/uL INTERFACE SYSTEM MPV 10.7 9.3 - 12.4 fL INTERFACE SYSTEM 10/13/2006 3:33 PM CDT us Lynne Escobar MD HEMATOLOGY ORDERABLES Edited Performing Organization Address [facility] [address] [facility] de Phone Number INTERFACE SYSTEM Refer to clinic/hospital department * C-REACTIVE PROTEIN (10/13/2006 3:33 PM CDT) CRP <0.2 0.0 - 0.8 mg/dL INTERFACE SYSTEM 10/13/2006 3:33 PM CDT us Lynne Escobar MD CHEMISTRY ORDERABLES Edited Performing Organization Address [facility] [address]/[facility] Phone Number INTERFACE SYSTEM Refer to clinic/hospital department * COMPREHENSIVE METABOLIC PANEL (10/13/2006 3:33 PM CDT) GLUCOSE 84 65 - 99 mg/dL INTERFACE SYSTEM CREATININE 0.84 0.51 - 0.95 mg/dL INTERFACE SYSTEM CALCIUM 8.9 8.4 - 10.2 mg/dL INTERFACE SYSTEM ALKALINE PHOSPHATASE 99 35 - 104 U/L INTERFACE SYSTEM AST 13 12 - 32 U/L INTERFACE SYSTEM ALT 11 0 - 31 U/L INTERFACE SYSTEM TOTAL PROTEIN 6.5 6.3 - 8.6 g/dL INTERFACE SYSTEM ALBUMIN 4.0 3.4 - 4.8 g/dL INTERFACE SYSTEM BILIRUBIN TOTAL 0.2 0.2 - 1.0 mg/dL INTERFACE SYSTEM BUN 17 6 - 20 mg/dL INTERFACE SYSTEM SODIUM 139 135 - 145 mmol/L INTERFACE SYSTEM POTASSIUM 3.7 3.5 - 4.9 mmol/L INTERFACE SYSTEM CHLORIDE 103 96 - 108 mmol/L INTERFACE SYSTEM CO2 26 22 - 30 mmol/L INTERFACE SYSTEM GFR, >60 >=60 mL/min/1.7 sq meter INTERFACE SYSTEM GFR >60 >=60 mL/min/1.7 sq meter INTERFACE SYSTEM Comment: Estimated GFR rate interpretative information for both Americans and non- Americans is available on the [facility] Intranet at: [email or web address] Select: Lab Policies and Procedures Select: Reference Ranges - GFR 10/13/2006 3:33 PM CDT Lynne Escobar MD CHEMISTRY ORDERABLES Edited INTERFACE SYSTEM Refer to clinic/hospital department documented in this encounter Visit Diagnoses Diagnosis Unspecified constipation- Primary documented in this encounter Additional Health Concerns Infection Onset Date Last Indicated Resolved Time R/O Respiratory 01/11/2023 01/11/2023 01/11/2023 7 :48 PM LIBRARIAN ASSISTANT R/O Respiratory 02/19/2024 02/19/2024 02/19/2024 1 1:21 AM LIBRARIAN ASSISTANT Influenza 02/19/2024 02/19/2024 02/26/2024 1:16 AM LIBRARIAN ASSISTANT R/O Respiratory 03/13/2024 03/13/2024 03/13/2024 4 :20 PM LIBRARIAN ASSISTANT Human Metapneumovirus 03/13/2024 03/13/20242024 1:16 AM LIBRARIAN ASSISTANT R/O C. diff 03/13/2024 03/13/2024 03/14/2024 8:00 PM LIBRARIAN ASSISTANT R/O C. diff 03/14/2024 03/14/2024 03/15/2024 6:17 PM LIBRARIAN ASSISTANT documented as of this encounter Care Teams Concrete Inspector Relationship Specialty Start Date End Date Juventino Howe MD [address] [facility] [address] [place] [address] PCP - General Internal Medicine 11/04/11 documented as of this encounter
--- OUTSIDE RECORDS SUMMARY | 2024-07-26 18:07 | XMS_ITS | Encounter Summary ---
Author Organization [facility] Address [address] [place] [address] Care Team Providers Care Soiled Linen Distributor Name Role Phone Juventino Howe MD Primary Care Provider [phone] Encounter Details Date Type Department Care Team (Late Contact Info) Description 08/24/2008 Outpatient Historical [facility], [address] Sheldon Duron MD [address] [facility] [address] [place] [address] Social History Tobacco Use Types Packs/Day Years Used Date Smoking Tobacco: Never Alcohol Use Standard Drinks/Week Comments No 0 (1 standard drink = 0.6 oz pur e alcohol) Comments No Sex and Gender Information Value Date Recorded Sex Assigned at Not on file Legal Sex Female 3:38 AM 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 Gender Identity Not on file Sexual Orientation Not on file documented as of this encounter Plan of Treatment Upcoming Encounters Date Type Department Care Team (Late Contact Info) Description 07/31/2024 5:00 PM CDT Appointment [facility] Therapy Services [address] [address] Chandler Spivey PA [address] [facility] [address] [place] [address] Maegan Duncan, Physical Therapist 08/02/2024 5:00 PM CDT Appointment [facility] Neuro Rehabilitation [address] [place] [address] Jonathan Cortez MD [address] [facility] [address] [place] [address] -x0 (Work) Sarah Estrada, RYAN 08/09/2024 5:00 PM CDT Appointment [facility] [place] [address] [facility] [address] [place] [address] Chandler Spivey PA [address] [facility] [address] [place] [address] Maegan Duncan, Physical Therapist 08/30/2024 3:30 PM CDT Office Visit [facility] Internal Medicine Medical [place] [facility] [address] [facility] [address] [address] Juventino Howe MD [address] [facility] [address] [place] [address] 10/31/2024 3:00 PM CDT Office Visit [facility] Pulmonology [facility] [address] [facility] [address] [place] [address] Everett Cam MD [address] [facility] [address] [place] [address] 12/28/2024 2:45 PM 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 Office Visit [facility] Endocrinology [address] [facility] [address] [place] [address] Sheldon Duron MD [address] [facility] [address] [place] [address] 02/26/2025 3:10 PM 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 Office Visit [facility] Gastroenterology [facility] [address] [facility] [address] [place] [address] Suzette Cody MD [address] [facility] 1200 [place] [address] documented as of this encounter Procedures Procedure Name Priority Date/Time Associated Diagnosis Comments CYTOLOGY, NON GYNE Routine 08/24/2008 2: 11 PM CDT CYTOLOGY, NON GYNE Routine 08/24/2008 2: 10 PM CDT documented in this encounter Results * CYTOLOGY, NON GYNE (08/24/2008 2:11 PM CDT) PATHOLOGY/CYT OLOGY REPORT [facility] [address] [place], [place] [address] Patient: EPIFANOI OROSCO : 1960 Procedure Date: 08/24/2008 Accession Date: 08/27/2008 Case No: [id number] Ordering Dr: SHELDON DURON Case types AW, BW, FW, NW and SH are performed by [facility] [place] [place], [place] SURGICAL PATHOLOGY & NON-GYNECOLOGIC CYTOPATHOLOGY REPORT DIAGNOSIS: THYROID, RIGHT LOWER LOBE, FINE NEEDLE ASPIRATION, SMEAR AND CELL BLOCK EXAMINATION: - NODULAR HYPERPLASIA WITH CYSTIC/HEMORRHAGI C DEGENERATION. Specimen Description: Right thyroid lower lobe. Operative Procedure: Ultrasound-guide d FNA. Patient Information/Histo ry/Diagnosis: Right complex mass with more cystic than solid elements, 3.4 x 1.7 x 2.9 cm. Gross: We receive one container with 30 cc reddish, slightly cloudy fluid. The specimen is received in CytoLyt. A liquid-based monolayer smear and cell block are prepared. FELI/TMZ 08.28.2008 10:31 am Microscopic: The specimen consists principally of macrophages, some of which contain hemosiderin pigment, attesting to cystic/hemorrhagi c degeneration. Sheets of benign thyroid follicular epithelial cells are also present. The features are consistent with nodular hyperplasia with cystic/hemorrhagi c degeneration. FELI/TMZ 08.28.2008 10:31 am Staging Form: No ELECTRONIC SIGNATURE FOR RED LESLIE M.D.- 08/28/08 10:55 am INTERFACE SYSTEM 08/24/2008 2:11 PM CDT us Sheldon Duron MD PATHOLOGY/CYTOLOGY ORDERABL ES Final Result Performing Organization Address [facility] Co de Phone Number INTERFACE SYSTEM Refer to clinic/hospital department * CYTOLOGY, NON GYNE (08/24/2008 2:10 PM CDT) PATHOLOGY/CYT OLOGY REPORT [facility] [address] [place], [place] [address] Patient: EPIFANIO OROSCO : 1960 Procedure Date: 08/24/2008 Accession Date: 08/27/2008 Case No: [id number] Ordering Dr: SHELDON DURON Case types AW, BW, FW, NW and SH are performed by [facility] [place] [place] SURGICAL PATHOLOGY & NON-GYNECOLOGIC CYTOPATHOLOGY REPORT DIAGNOSIS: THYROID, RIGHT UPPER POLE, FINE NEEDLE ASPIRATION, SMEAR AND CELL BLOCK EXAMINATION: - NODULAR HYPERPLASIA. Specimen Description: Right thyroid upper pole. Operative Procedure: Ultrasound-guide d FNA. Patient Information/Histo ry/Diagnosis: Right upper thyroid lobe; 1-cm, hypoechoic lesion. Gross: We receive one container with 29 cc blood-tinged fluid. The specimen is received in CytoLyt. A liquid-based monolayer smear and cell block are prepared. [facility] 08.28.2008 10:33 am Microscopic: The aspirate contains benign thyroid follicular epithelial cells principally in monolayer sheets. The features are consistent with adenomatoid nodule in the setting of nodular hyperplasia. [facility] 08.28.2008 10:33 am Staging Form: No ELECTRONIC SIGNATURE FOR [employer] LESLIE M.D.- 08/28/08 10:56 am INTERFACE SYSTEM 08/24/2008 2:1 0 PM CDT us Sheldon Duron MD PATHOLOGY/CYTOLOGY ORDERABL ES Final Result Performing Organization Address [facility] Co de Phone Number INTERFACE SYSTEM Refer to clinic/hospital department documented in this encounter Visit Diagnoses Not on filedocumented in this encounter Additional Health Concerns Infection Onset Date Last Indicated Resolved Time R/O Respiratory 01/11/2023 01/11/202301/1101/11/2023 7 :48 PM 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 R/O Respiratory 02/19/2024 02/19/2024 02/19/2024 1 1:21 AM 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 Influenza 02/19/2024 02/19/2024 02/26/2024 1:16 AM 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 R/O Respiratory 03/13/2024 03/13/2024 03/13/2024 4 :20 PM 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 Human Metapneumovirus 03/13/2024 03/13/20242024 1:16 AM 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 R/O C. diff 03/13/2024 03/13/2024 03/14/2024 8:00 PM 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 R/O C. diff 03/14/2024 03/14/2024 03/15/2024 6:17 PM 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 documented as of this encounter Care Teams Soiled Linen Distributor Relationship Specialty Start Date End Date Juventino Howe MD [address] [facility] [address] [place] [address] PCP - General Internal Medicine 11/04/11 documented as of this encounter
--- OUTSIDE RECORDS SUMMARY | 2024-07-26 18:08 | XMS_ITS | Encounter Summary ---
Author Organization [facility] Address [address] [place] [address] Care Team Providers Care Safety Physician Name Role Phone Juventino Howe MD Primary Care Provider [phone] Encounter Details Date Type Department Care Team (Late st Contact Info) Description 03/18/2004 Outpatient Historical [facility] Support Serv. (Adt Cardiology-[facility]) [address] [place] [address] Robin Vizcaino MD Social History Tobacco Use Types Packs/Day Years Used Date Smoking Tobacco: Never Assessed Comments Unknown Sex and Gender Information Value Date Recorded Sex Assigned at Not on file Legal Sex Female 3:38 AM PROGRAM EVALUATION CONSULTANT Gender Identity Not on file Sexual Orientation Not on file documented as of this encounter Plan of Treatment Upcoming Encounters Date Type Department Care Team (Late st Contact Info) Description 07/31/2024 5:00 PM CDT Appointment [facility] Therapy Services [id number] [facility] [address] [place] [address] Chandler Spivey PA [address] [facility] [address] [place] [address] Maegan Duncan, Physical Therapist 08/02/2024 5:00 PM CDT Appointment [facility] Neuro Rehabilitation [facility] [address] [facility] [place] [address] Jonathan Cortez MD [address] [facility] [address] [address] -x0 (Work) Sarah Estrada, RYAN 08/09/2024 5:00 PM CDT Appointment [facility] [address] [place] [address] [place] [address] Chandler Spivey PA [address] [facility] [address] [place] [address] Maegan Duncan, Physical Therapist 08/30/2024 3:30 PM CDT Office Visit [facility] Internal Medicine Medical [place] A [place] [address] [address] Juventino Howe MD [address] [facility] [address] [place] [address] 10/31/2024 3:00 PM CDT Office Visit [facility] Pulmonology [facility] [address] [facility] [address] [place] [address] Everett Cam MD [address] [facility] [address] [place] [address] 12/28/2024 2:45 PM PROGRAM EVALUATION CONSULTANT Office Visit [facility] Endocrinology [address] [facility] [address] [place] [address] Sheldon Canales MD [address] [facility] [address] [place] [address] 02/26/2025 3:10 PM PROGRAM EVALUATION CONSULTANT Office Visit [facility] Gastroenterology [place] [address] [facility] [address] [place] [address] [place] [address] Suzette Cody MD [address] [place] [address] [place] [address] documented as of this encounter Visit Diagnoses Not on filedocumented in this encounter Additional Health Concerns Infection Onset Date Last Indicated Resolved Time R/O Respiratory 01/11/2023 01/11/2023 01/11/2023 7 :48 PM PROGRAM EVALUATION CONSULTANT R/O Respiratory 02/19/2024 02/19/2024 02/19/2024 1 1:21 AM PROGRAM EVALUATION CONSULTANT Influenza 02/19/2024 02/19/2024 02/26/2024 1:16 AM PROGRAM EVALUATION CONSULTANT R/O Respiratory 03/13/2024 03/13/2024 03/13/2024 4 :20 PM PROGRAM EVALUATION CONSULTANT Human Metapneumovirus 03/13/2024 03/13/20242024 1:16 AM PROGRAM EVALUATION CONSULTANT R/O C. diff 03/13/2024 03/13/2024 03/14/2024 8:00 PM PROGRAM EVALUATION CONSULTANT R/O C. diff 03/14/2024 03/14/2024 03/15/2024 6:17 PM PROGRAM EVALUATION CONSULTANT documented as of this encounter Care Teams Safety Physician Relationship Specialty Start Date End Date Juventino Howe MD [address] [facility] [address] [place] [address] PCP - General Internal Medicine 11/04/11 documented as of this encounter
--- OUTSIDE RECORDS SUMMARY | 2024-07-26 18:08 | XMS_ITS | Encounter Summary ---
Author Organization [facility] Address [address] [place] [address] Care Team Providers Care Nurse Case Management Name Role Phone Juventino Howe MD Primary Care Provider [phone] Encounter Details Date Type Department Care Team (Late st Contact Info) Description 02/03/2007 Outpatient Historical [facility] Gynecologic Oncology [address] [facility] [address] [place] [address] Gadiel Price Jr., MD NO ADDRESS ON FILE Social History Tobacco Use Types Packs/Day Years Used Date Smoking Tobacco: Never Assessed Comments Unknown Sex and Gender Information Value Date Recorded Sex Assigned at Not on file Legal Sex Female 3:38 AM CONTROL CLERK REPAIRS Gender Identity Not on file Sexual Orientation Not on file documented as of this encounter Plan of Treatment Upcoming Encounters Date Type Department Care Team (Late st Contact Info) Description 07/31/2024 5:00 PM CDT Appointment [facility] Therapy Services [place] [address] [facility] [address] [place] [address] Chandler Spivey PA [address] [facility] [address] [place] [address] Maegan Duncan, Physical Therapist 08/02/2024 5:00 PM CDT Appointment [facility] Neuro Rehabilitation [facility] [address] [facility] [place] [address] Jonathan Cortez MD [address] [facility] [address] [address] -x0 (Work) Sarah Estrada, RYAN 08/09/2024 5:00 PM CDT Appointment [facility] [address] [place] [address] [place] [address] Chandler Spivey PA [address] [facility] [address] [place] [address] Maegan Duncan, Physical Therapist 08/30/2024 3:30 PM CDT Office Visit [facility] Internal Medicine Medical [place] [address] [address] [address] Juventino Howe MD [address] [facility] [address] [place] [address] 10/31/2024 3:00 PM CDT Office Visit [facility] Pulmonology [facility] [address] [facility] [address] [place] [address] Everett Cam MD [address] [address] [place] [address] 12/28/2024 2:45 PM CONTROL CLERK REPAIRS Office Visit [facility] Endocrinology [address] [facility] [address] [place] [address] Sheldon Canales MD [address] [facility] [address] [place] [address] 02/26/2025 3:10 PM CONTROL CLERK REPAIRS Office Visit [facility] Gastroenterology [place] [address] [facility] [address] [place] [address] [place] [address] Suzette Cody MD [address] [facility] [address] [place] [address] [place] [address] documented as of this encounter Visit Diagnoses Not on filedocumented in this encounter Additional Health Concerns Infection Onset Date Last Indicated Resolved Time R/O Respiratory 01/11/2023 01/11/2023 01/11/2023 7 :48 PM CONTROL CLERK REPAIRS R/O Respiratory 02/19/2024 02/19/2024 02/19/2024 1 1:21 AM CONTROL CLERK REPAIRS Influenza 02/19/2024 02/19/2024 02/26/2024 1:16 AM CONTROL CLERK REPAIRS R/O Respiratory 03/13/2024 03/13/2024 03/13/2024 4 :20 PM CONTROL CLERK REPAIRS Human Metapneumovirus 03/13/2024 03/13/20242024 1:16 AM CONTROL CLERK REPAIRS R/O C. diff 03/13/2024 03/13/2024 03/14/2024 8:00 PM CONTROL CLERK REPAIRS R/O C. diff 03/14/2024 03/14/2024 03/15/2024 6:17 PM CONTROL CLERK REPAIRS documented as of this encounter Care Teams Nurse Case Management Relationship Specialty Start Date End Date Juventino Howe MD [address] [facility] [address] [place] [address] PCP - General Internal Medicine 11/04/11 documented as of this encounter
--- OUTSIDE RECORDS SUMMARY | 2024-07-26 18:08 | XMS_ITS | Encounter Summary ---
Author Organization [facility] Address [address] [place] [address] Care Team Providers Care Fitness/Wellness Director Name Role Phone Juventino Howe MD Primary Care Provider [phone] Encounter Details Date Type Department Care Team (Latest Contact Info) Description 09/06/2006 Outpatient Historical [facility] Lynne Navarro MD [address] [place] [address] Other Constipation (Primary Dx) Social History Tobacco Use Types Packs/Day Years Used Date Smoking Tobacco: Never Assessed Comments Unknown Sex and Gender Information Value Date Recorded Sex Assigned at Not on file Legal Sex Female 3:38 AM FLAKE DRIER Gender Identity Not on file Sexual Orientation Not on file documented as of this encounter Plan of Treatment Upcoming Encounters Date Type Department Care Team (Late st Contact Info) Description 07/31/2024 5:00 PM CDT Appointment [facility] Therapy Services [address] [address] Chandler Spivey PA [address] [facility] [address] [place] [address] Maegan Duncan, Physical Therapist 08/02/2024 5:00 PM CDT Appointment [facility] Neuro Rehabilitation [place] [address] [place] [address] Jonathan Cortez MD [address] [facility] [address] [address] -x0 (Work) Sarah Estrada, BOAT HAND 08/09/2024 5:00 PM CDT Appointment [facility] [address] [facility] 145 [place] [address] Chandler Spivey PA [address] [facility] [address] [place] [address] Maegan Duncan, Physical Therapist 08/30/2024 3:30 PM CDT Office Visit [facility] Internal Medicine Medical [place] [facility] [address] [facility] [address] [address] Juventino Howe MD [address] [facility] [address] [place] [address] 10/31/2024 3:00 PM CDT Office Visit [facility] Pulmonology [facility] [address] [facility] [address] [place] [address] Everett Cam MD [address] [facility] [address] [place] [address] 12/28/2024 2:45 PM FLAKE DRIER Office Visit [facility] Endocrinology [address] [facility] [address] [place] [address] Sheldon Canales MD [address] [facility] [address] [place] [address] 02/26/2025 3:10 PM FLAKE DRIER Office Visit [facility] Gastroenterology [facility] [address] [address] [place] [address] [place] [address] Suzette Cody MD [address] [facility] [place] [address] [place] [address] documented as of this encounter Visit Diagnoses Diagnosis Other constipation- Primary documented in this encounter Additional Health Concerns Infection Onset Date Last Indicated Resolved Time R/O Respiratory 01/11/2023 01/11/2023 01/11/2023 7 :48 PM FLAKE DRIER R/O Respiratory 02/19/2024 02/19/2024 02/19/2024 1 1:21 AM FLAKE DRIER Influenza 02/19/2024 02/19/2024 02/26/2024 1:16 AM FLAKE DRIER R/O Respiratory 03/13/2024 03/13/2024 03/13/2024 4 :20 PM FLAKE DRIER Human Metapneumovirus 03/13/2024 03/13/20242024 1:16 AM FLAKE DRIER R/O C. diff 03/13/2024 03/13/2024 03/14/2024 8:00 PM FLAKE DRIER R/O C. diff 03/14/2024 03/14/2024 03/15/2024 6:17 PM FLAKE DRIER documented as of this encounter Care Teams Fitness/Wellness Director Relationship Specialty Start Date End Date Juventino Howe MD [address] [facility] [address] [place] [address] PCP - General Internal Medicine 11/04/11 documented as of this encounter
--- OUTSIDE RECORDS SUMMARY | 2024-07-26 18:08 | XMS_ITS | Encounter Summary ---
Author Organization [facility] Address [address] [place] [address] Care Team Providers Care Dry Cell Assembly Supervisor Name Role Phone Juventino Howe MD Primary Care Provider [phone] Encounter Details Date Type Department Care Team (Late st Contact Info) Description 05/11/2007 Outpatient Historical [facility] Batsheva Escobar MD [address] [place] [address] Abdominal Pain, Generalized; Abdominal Pain, Unspecified Site Social History Tobacco Use Types Packs/Day Years Used Date Smoking Tobacco: Never Assessed Comments Unknown Sex and Gender Information Value Date Recorded Sex Assigned at Not on file Legal Sex Female 3:38 AM MANAGER PHP Gender Identity Not on file Sexual Orientation Not on file documented as of this encounter Plan of Treatment Upcoming Encounters Date Type Department Care Team (Late Contact Info) Description 07/31/2024 5:00 PM CDT Appointment [facility] Therapy Services [address] [address] Chandler Spivey PA [address] [place] [address] Maegan Duncan, Physical Therapist 08/02/2024 5:00 PM CDT Appointment [facility] Neuro Rehabilitation [place] [address] [facility] [place] [address] Jonathan Cortez MD [address] [facility] [place] [address] [address] -x0 (Work) Sarah Estrada, PRODUCTION MECHANIC TIN CANS 08/09/2024 5:00 PM CDT Appointment [facility] [address] [facility] 145 [place] [address] Chandler Spivey PA [address] [facility] [address] [place] [address] Maegan Duncan, Physical Therapist 08/30/2024 3:30 PM CDT Office Visit [facility] Internal Medicine Medical [place] [facility] [address] [facility] [address] [address] Juventino Howe MD [address] [facility] [address] [place] [address] 10/31/2024 3:00 PM CDT Office Visit [facility] Pulmonology [facility] [address] [facility] [address] [place] [address] Everett Cam MD [address] [facility] [address] [place] [address] 12/28/2024 2:45 PM MANAGER PHP Office Visit [facility] Endocrinology [address] [facility] [address] [place] [address] Sheldon Canales MD [address] [facility] [address] [place] [address] 02/26/2025 3:10 PM MANAGER PHP Office Visit [facility] Gastroenterology [facility] [address] [facility] 1200 [place] [address] Suzette Cody MD [address] [facility] 1200 [place] [address] documented as of this encounter Procedures Procedure Name Priority Date/Time Associated Diagnosis Comments XR SMALL BOWEL Timed Study 05/11/2007 7:30 AM CDT documented in this encounter Results * XR SMALL BOWEL (05/11/2007 7:30 AM CDT) Anatomical Region Laterality Modality Abdomen Other 05/11/2007 7:30 AM CDT Narrative 05/11/2007 10:42 AM CDT [address] [address] Admit Date: 05/11/2007 EPIFANIO OROSCO Sex: F Admit Prov: BATSHEVA ESCOBAR Date: 1960 Primary Care Prov: CMRN: [id number] [id number] Ordering Prov: N/A Accession Number: [id number] Interpretation SMALL BOWEL SERIES 05/11/2007 Clinical history: Right-sided abdominal pain A preliminary abdominal transportation superintendent radiograph demonstrates some surgical celsa in the right lower quadrant but no evidence of bowel dilatation. Following oral administration of barium abdominal radiographs were obtained up to 60 minutes at which time definitive contrast is seen within the right colon. The small bowel is normal in caliber and shows a normal mucosal pattern throughout. No intrinsic or extrinsic small bowel radiographic abnormalities are seen including a normal appearance of the terminal ileum. There is partial filling of the appendix. Impression: Radiographically normal small bowel findings. . Dictated by: AMARIS MERCER 05/11/2007 09:05 Electronically signed by: AMARIS MERCER 05/11/2007 10:42 Transcribed: 05/11/2007 09:15 Procedure Note Provider, Historical - 05/11/[address] [address] Admit Date: 05/11/2007 EPIFANIO OROSCO Sex: F Admit Prov: BATSHEVA ESCOBAR Date: 1960 Primary Care Prov: CMRN: [id number] Room: [facility] SSN: [id number] IMAGING SERVICES Ordering Prov: N/A Interpretation SMALL BOWEL SERIES 05/11/2007 Clinical history: Right-sided abdominal pain A preliminary abdominal transportation superintendent radiograph demonstrates somesurgical celsa in the right lower quadrant but no evidence of boweldilatation. Following oral administration of barium abdominal radiographs wereobtained up to 60 minutes at which time definitive contrast is seen within theright colon. The small bowel is normal in caliber and shows a normalmucosal pattern throughout. No intrinsic or extrinsic small bowelradiographic abnormalities are seen including a normal appearance of the terminalileum. There is partial filling of the appendix. Impression: Radiographically normal small bowel findings. . Dictated by: AMARIS MERCER 05/11/2007 09:05 Electronically signed by: AMARIS MERCER 05/11/2007 10:42 Transcribed: 05/11/2007 09:15 Batsheva Escobar MD DIAGNOSTIC IMAGING ORDERABLES F inal Result documented in this encounter Visit Diagnoses Diagnosis Abdominal pain, generalized Abdominal pain, unspecified site documented in this encounter Additional Health Concerns Infection Onset Date Last Indicated Resolved Time R/O Respiratory 01/11/2023 01/11/2023 01/11/2023 7 :48 PM MANAGER PHP R/O Respiratory 02/19/2024 02/19/2024 02/19/2024 1 1:21 AM MANAGER PHP Influenza 02/19/2024 02/19/2024 02/26/2024 1:16 AM MANAGER PHP R/O Respiratory 03/13/2024 03/13/2024 03/13/2024 4 :20 PM MANAGER PHP Human Metapneumovirus 03/13/2024 03/13/20242024 1:16 AM MANAGER PHP R/O C. diff 03/13/2024 03/13/2024 03/14/2024 8:00 PM MANAGER PHP R/O C. diff 03/14/2024 03/14/2024 03/15/2024 6:17 PM MANAGER PHP documented as of this encounter Care Teams Dry Cell Assembly Supervisor Relationship Specialty Start Date End Date Juventino Howe MD [address] [facility] [address] [place] [address] PCP - General Internal Medicine 11/04/11 documented as of this encounter
--- OUTSIDE RECORDS SUMMARY | 2024-07-26 18:08 | XMS_ITS | Encounter Summary ---
Author Organization [facility] Address [address] [place] [address] Care Team Providers Care Clipper Machine Name Role Phone Juventino Howe MD Primary Care Provider [phone] Encounter Details Date Type Department Care Team (Late st Contact Info) Description 11/01/2006 Outpatient Historical [facility], [address] Wendy Canales MD [address] [facility] [address] [address] Urinary Tract Infection, Site not Specified (Primary Dx) Social History Tobacco Use Types Packs/Day Years Used Date Smoking Tobacco: Never Assessed Comments Unknown Sex and Gender Information Value Date Recorded Sex Assigned at Not on file Legal Sex Female 3:38 AM LD TEACHER Gender Identity Not on file Sexual Orientation Not on file documented as of this encounter Plan of Treatment Upcoming Encounters Date Type Department Care Team (Late st Contact Info) Description 07/31/2024 5:00 PM CDT Appointment [facility] [address] [address] Chandler Spivey PA [address] [facility] [address] [place] [address] Maegan Duncan, Physical Therapist 08/02/2024 5:00 PM CDT Appointment [facility] Neuro Rehabilitation [place] [address] [facility] [place] [address] Jonathan Cortez MD [address] [facility] [address] [address] -x0 (Work) Sarah Estrada, RYAN 08/09/2024 5:00 PM CDT Appointment [facility] [address] [facility] [address] [place] [address] Chandler Spivey PA [address] [facility] [address] [place] [address] Maegan Duncan, Physical Therapist 08/30/2024 3:30 PM CDT Office Visit [facility] Internal Medicine Medical [place] A [facility] 189 [address] [facility] [address] [place] [address] Juventino Howe MD [address] [facility] [address] [place] [address] 10/31/2024 3:00 PM CDT Office Visit [facility] Pulmonology [facility] [address] [facility] [address] [place] [address] Everett Cam MD [address] [facility] [address] [place] [address] 12/28/2024 2:45 PM LD TEACHER Office Visit [facility] Endocrinology [address] [facility] [address] [place] [address] Sheldon Canales MD [address] [facility] [address] [place] [address] 02/26/2025 3:10 PM LD TEACHER Office Visit [facility] [address] [facility] [address] [place] [address] Suzette Cody MD [address] [facility] [address] [place] [address] documented as of this encounter Visit Diagnoses Diagnosis Urinary tract infection, site not specified- Primary documented in this encounter Additional Health Concerns Infection Onset Date Last Indicated Resolved Time R/O Respiratory 01/11/2023 01/11/2023 01/11/2023 7 :48 PM LD TEACHER R/O Respiratory 02/19/2024 02/19/2024 02/19/2024 1 1:21 AM LD TEACHER Influenza 02/19/2024 02/19/2024 02/26/2024 1:16 AM LD TEACHER R/O Respiratory 03/13/2024 03/13/2024 03/13/2024 4 :20 PM LD TEACHER Human Metapneumovirus 03/13/2024 03/13/20242024 1:16 AM LD TEACHER R/O C. diff 03/13/2024 03/13/2024 03/14/2024 8:00 PM LD TEACHER R/O C. diff 03/14/2024 03/14/2024 03/15/2024 6:17 PM LD TEACHER documented as of this encounter Care Teams Clipper Machine Relationship Specialty Start Date End Date Juventino Howe MD [address] [facility] [address] [place] [address] PCP - General Internal Medicine 11/04/11 documented as of this encounter
--- OUTSIDE RECORDS SUMMARY | 2024-07-26 18:08 | XMS_ITS | Encounter Summary ---
Author Organization [facility] Address [address] [place] [address] Care Team Providers Care Process Development Manager Name Role Phone Juventino Howe MD Primary Care Provider [phone] Encounter Details Date Type Department Care Team (Latest Contact Info) Description 09/09/2005 Outpatient Historical [facility] Lynne Navarro MD [address] [place] [address] Unspecified Constipation (Primary Dx) Social History Tobacco Use Types Packs/Day Years Used Date Smoking Tobacco: Never Assessed Comments Unknown Sex and Gender Information Value Date Recorded Sex Assigned at Not on file Legal Sex Female 3:38 AM CRAPS DEALER Gender Identity Not on file Sexual Orientation Not on file documented as of this encounter Plan of Treatment Upcoming Encounters Date Type Department Care Team (Late st Contact Info) Description 07/31/2024 5:00 PM CDT Appointment [facility] Therapy Services [address] [address] Chandler Spivey PA [address] [facility] [address] [place] [address] Maegan Duncan, Physical Therapist 08/02/2024 5:00 PM CDT Appointment [facility] Neuro Rehabilitation [place] [address] [facility] [place] [address] Jonathan Cortez MD [address] [facility] [address] [address] -x0 (Work) Sarah Estrada, REFRIGERATING TECHNICIAN 08/09/2024 5:00 PM CDT Appointment [facility] [address] [facility] 145 [place] [address] Chandler Spivey PA [address] [facility] [address] [place] [address] Maegan Duncan, Physical Therapist 08/30/2024 3:30 PM CDT Office Visit [facility] Internal Medicine Medical [place] A [facility] 189 [address] [facility] [address] [address] Juventino Howe MD [address] [facility] [address] [place] [address] 10/31/2024 3:00 PM CDT Office Visit [facility] Pul[facility]ology [facility] [address] [facility] [address] [place] [address] Everett Cam MD [address] [facility] [address] [place] [address] 12/28/2024 2:45 PM CRAPS DEALER Office Visit [facility] Endocrinology [address] [facility] [address] [place] [address] Sheldon Canales MD [address] [facility] [address] [place] [address] 02/26/2025 3:10 PM CRAPS DEALER Office Visit [facility] Gastroenterology [facility] [address] [facility] [address] [place] [address] Suzette Cody MD [address] [facility] [address] [place] [address] documented as of this encounter Visit Diagnoses Diagnosis Unspecified constipation- Primary documented in this encounter Additional Health Concerns Infection Onset Date Last Indicated Resolved Time R/O Respiratory 01/11/2023 01/11/2023 01/11/2023 7 :48 PM CRAPS DEALER R/O Respiratory 02/19/2024 02/19/2024 02/19/2024 1 1:21 AM CRAPS DEALER Influenza 02/19/2024 02/19/2024 02/26/2024 1:16 AM CRAPS DEALER R/O Respiratory 03/13/2024 03/13/2024 03/13/2024 4 :20 PM CRAPS DEALER Human Metapneumovirus 03/13/2024 03/13/20242024 1:16 AM CRAPS DEALER R/O C. diff 03/13/2024 03/13/2024 03/14/2024 8:00 PM CRAPS DEALER R/O C. diff 03/14/2024 03/14/2024 03/15/2024 6:17 PM CRAPS DEALER documented as of this encounter Care Teams Process Development Manager Relationship Specialty Start Date End Date Juventino Howe MD [address] [facility] [address] [place] [address] PCP - General Internal Medicine 11/04/11 documented as of this encounter
--- OUTSIDE RECORDS SUMMARY | 2024-07-26 18:08 | XMS_ITS | Encounter Summary ---
Author Organization [facility] Address [address] [place] [address] Care Team Providers Care Interventional Radiology Rn Name Role Phone Juventino Howe MD Primary Care Provider [phone] Encounter Details Date Type Department Care Team (Late st Contact Info) Description 01/03/2008 Outpatient Historical [facility] Lynne Escobar MD [address] [place] [address] Social History Tobacco Use Types Packs/Day Years Used Date Smoking Tobacco: Never Assessed Comments Unknown Sex and Gender Information Value Date Recorded Sex Assigned at Not on file Legal Sex Female 3:38 AM RISK MANAGEMENT ANALYST Gender Identity Not on file Sexual Orientation Not on file documented as of this encounter Plan of Treatment Upcoming Encounters Date Type Department Care Team (Late st Contact Info) Description 07/31/2024 5:00 PM CDT Appointment [facility] Therapy [address] [address] Chandler Spivey PA [address] [facility] [address] [place] [address] Maegan Duncan, Physical Therapist 08/02/2024 5:00 PM CDT Appointment [facility] Neuro Rehabilitation [facility] and [facility] [address] [facility] [place] [address] Jonathan Cortez MD [address] [facility] [address] [address] -x (Work) Sarah Estrada, RYAN 08/09/2024 5:00 PM CDT Appointment [facility] Services [place] [address] [place] [address] Chandler Spivey PA [address] [facility] [address] [place] [address] Maegan Duncan, Physical Therapist 08/30/2024 3:30 PM CDT Office Visit [facility] Internal Medicine Medical [place] A [address] [address] Juventino Howe MD [address] [facility] [address] [place] [address] 10/31/2024 3:00 PM CDT Office Visit [facility] Pulmonology [facility] [address] [facility] [address] [place] [address] Everett Cam MD [address] [facility] [address] [place] [address] 12/28/2024 2:45 PM RISK MANAGEMENT ANALYST Office Visit [facility] Endocrinology [address] [facility] [address] [place] [address] Sheldon Canales MD [address] [place] [address] 02/26/2025 3:10 PM RISK MANAGEMENT ANALYST Office Visit [facility] Gastroenterology [facility] [address] [facility] [address] [place] [address] Suzette Cody MD [address] [place] [address] documented as of this encounter Visit Diagnoses Not on filedocumented in this encounter Additional Health Concerns Infection Onset Date Last Indicated Resolved Time R/O Respiratory 01/11/2023 01/11/2023 01/11/2023 7 :48 PM RISK MANAGEMENT ANALYST R/O Respiratory 02/19/2024 02/19/2024 02/19/2024 1 1:21 AM RISK MANAGEMENT ANALYST Influenza 02/19/2024 02/19/2024 02/26/2024 1:16 AM RISK MANAGEMENT ANALYST R/O Respiratory 03/13/2024 03/13/2024 03/13/2024 4 :20 PM RISK MANAGEMENT ANALYST Human Metapneumovirus 03/13/2024 03/13/20242024 1:16 AM RISK MANAGEMENT ANALYST R/O C. diff 03/13/2024 03/13/2024 03/14/2024 8:00 PM RISK MANAGEMENT ANALYST R/O C. diff 03/14/2024 03/14/2024 03/15/2024 6:17 PM RISK MANAGEMENT ANALYST documented as of this encounter Care Teams Interventional Radiology Rn Relationship Specialty Start Date End Date Juventino Howe MD [address] [facility] [address] [place] [address] PCP - General Internal Medicine 11/04/11 documented as of this encounter
--- OUTSIDE RECORDS SUMMARY | 2024-07-26 18:08 | XMS_ITS | Encounter Summary ---
Author Organization [facility] Address [address] [place] [address] Care Team Providers Care Parent Aide Name Role Phone Juventino Howe MD Primary Care Provider [phone] Encounter Details Date Type Department Care Team (Latest Contact Info) Description 03/24/2004 Inpatient Historical [place] [address] [place] [address] FEMALE GENITAL SYMPTOMS NOS (Primary Dx) Social History Tobacco Use Types Packs/Day Years Used Date Smoking Tobacco: Never Assessed Comments Unknown Sex and Gender Information Value Date Recorded Sex Assigned at Not on file Legal Sex Female 3:38 AM RAILROAD SIGNAL OPERATOR Gender Identity Not on file Sexual Orientation Not on file documented as of this encounter Plan of Treatment Upcoming Encounters Date Type Department Care Team (Late st Contact Info) Description 07/31/2024 5:00 PM CDT Appointment [facility] Therapy Services [address] [place] [address] Chandler Spivey PA [address] [facility] [address] [place] [address] Maegan Duncan, Physical Therapist 08/02/2024 5:00 PM CDT Appointment [facility] Neuro Rehabilitation [place] [address] [place] [address] Jonathan Cortez MD [address] [facility] [address] [address] -x0 (Work) Sarah Estrada, PURCHASING CONTRACTING CLERK 08/09/2024 5:00 PM CDT Appointment [facility] [address] [facility] 145 [place] [address] Chandler Spivey PA [address] [facility] [address] [place] [address] Maegan Duncan, Physical Therapist 08/30/2024 3:30 PM CDT Office Visit [facility] Internal Medicine Medical [place] A [facility] [address] [facility] [address] [address] Juventino Howe MD [address] [facility] [address] [place] [address] 10/31/2024 3:00 PM CDT Office Visit [facility] Pulmonology [facility] [address] [facility] [address] [place] [address] Everett Cam MD [address] [facility] [address] [place] [address] 12/28/2024 2:45 PM RAILROAD SIGNAL OPERATOR Office Visit [facility] Endocrinology [address] [facility] [address] [place] [address] Sheldon Canales MD [address] [facility] [address] [place] [address] 02/26/2025 3:10 PM RAILROAD SIGNAL OPERATOR Office Visit [facility] Gastroenterology [facility] [address] [facility] [address] [place] [address] Suzette Cody MD [address] [facility] [address] [place] [address] documented as of this encounter Procedures Procedure Name Priority Date/Time Associated Diagnosis Comments HEMOGLOBIN AND HEMATOCRIT Routine 03/18/2004 3:30 PM RAILROAD SIGNAL OPERATOR documented in this encounter Results * HEMOGLOBIN AND HEMATOCRIT (03/18/2004 3:30 PM RAILROAD SIGNAL OPERATOR) HEMOGLOBIN 14.3 11.8 - 14.8 g/dL INTERFACE SYSTEM HEMATOCRIT 42.2 35.5 - 44.0 % INTERFACE SYSTEM 03/18/2004 3:30 PM RAILROAD SIGNAL OPERATOR us Lulu Zhou MD HEMATOLOGY ORDERABLES Final Re sult INTERFACE SYSTEM Refer to clinic/hospital department documented in this encounter Visit Diagnoses Diagnosis Unspecified symptom associated with female genital organs- Primary documented in this encounter Additional Health Concerns Infection Onset Date Last Indicated Resolved Time R/O Respiratory 01/11/2023 01/11/2023 01/11/2023 7 :48 PM RAILROAD SIGNAL OPERATOR R/O Respiratory 02/19/2024 02/19/2024 02/19/2024 1 1:21 AM RAILROAD SIGNAL OPERATOR Influenza 02/19/2024 02/19/2024 02/26/2024 1:16 AM RAILROAD SIGNAL OPERATOR R/O Respiratory 03/13/2024 03/13/2024 03/13/2024 4 :20 PM RAILROAD SIGNAL OPERATOR Human Metapneumovirus 03/13/2024 03/13/20242024 1:16 AM RAILROAD SIGNAL OPERATOR R/O C. diff 03/13/2024 03/13/2024 03/14/2024 8:00 PM RAILROAD SIGNAL OPERATOR R/O C. diff 03/14/2024 03/14/2024 03/15/2024 6:17 PM RAILROAD SIGNAL OPERATOR documented as of this encounter Care Teams Parent Aide Relationship Specialty Start Date End Date Juventino Howe MD [address] [facility] [address] [place] [address] PCP - General Internal Medicine 11/04/11 documented as of this encounter
--- OUTSIDE RECORDS SUMMARY | 2024-07-26 18:08 | XMS_ITS | Encounter Summary ---
Author Organization [facility] Address [address] [place] [address] Care Team Providers Care Laundry Machine Operator Name Role Phone Juventino Howe MD Primary Care Provider [phone] Encounter Details Date Type Department Care Team (Late st Contact Info) Description 02/03/2007 Outpatient Historical [facility] Gynecologic Oncology [address] [place] [address] Gadiel Price Jr., MD NO ADDRESS ON FILE Social History Tobacco Use Types Packs/Day Years Used Date Smoking Tobacco: Never Assessed Comments Unknown Sex and Gender Information Value Date Recorded Sex Assigned at Not on file Legal Sex Female 3:38 AM SALES ASSOCIATE FISHING Gender Identity Not on file Sexual Orientation Not on file documented as of this encounter Plan of Treatment Upcoming Encounters Date Type Department Care Team (Late st Contact Info) Description 07/31/2024 5:00 PM CDT Appointment [facility] Therapy Services [place] [address] [facility] 145 [place] [address] Chandler Spivey PA [address] [facility] [address] [place] [address] Maegan Duncan, Physical Therapist 08/02/2024 5:00 PM CDT Appointment [facility] [address] [place] [address] Jonathan Cortez MD [address] [facility] [address] [address] -x0 (Work) Sarah Estrada, RYAN 08/09/2024 5:00 PM CDT Appointment [facility] [address] [place] [address] [place] [address] Chandler Spivey PA [address] [facility] [address] [place] [address] aMegan Duncan, Physical Therapist 08/30/2024 3:30 PM CDT Office Visit [facility] Internal Medicine Medical [place] A [place] [address] [address] Juventino Howe MD [address] [facility] [address] [place] [address] 10/31/2024 3:00 PM CDT Office Visit [facility] Pulmonology [facility] [address] [facility] [address] [place] [address] Everett Cam MD [address] [facility] [address] [place] [address] 12/28/2024 2:45 PM SALES ASSOCIATE FISHING Office Visit [facility] Endocrinology [address] [facility] [address] [place] [address] Sheldon Canales MD [address] [facility] [address] [place] [address] 02/26/2025 3:10 PM SALES ASSOCIATE FISHING Office Visit [facility] Gastroenterology [place] [address] [place] [address] [place] [address] Suzette Cody MD [address] [place] [address] [place] [address] documented as of this encounter Visit Diagnoses Not on filedocumented in this encounter Additional Health Concerns Infection Onset Date Last Indicated Resolved Time R/O Respiratory 01/11/2023 01/11/2023 01/11/2023 7 :48 PM SALES ASSOCIATE FISHING R/O Respiratory 02/19/2024 02/19/2024 02/19/2024 1 1:21 AM SALES ASSOCIATE FISHING Influenza 02/19/2024 02/19/2024 02/26/2024 1:16 AM SALES ASSOCIATE FISHING R/O Respiratory 03/13/2024 03/13/2024 03/13/2024 4 :20 PM SALES ASSOCIATE FISHING Human Metapneumovirus 03/13/2024 03/13/20242024 1:16 AM SALES ASSOCIATE FISHING R/O C. diff 03/13/2024 03/13/2024 03/14/2024 8:00 PM SALES ASSOCIATE FISHING R/O C. diff 03/14/2024 03/14/2024 03/15/2024 6:17 PM SALES ASSOCIATE FISHING documented as of this encounter Care Teams Laundry Machine Operator Relationship Specialty Start Date End Date Juventino Howe MD [address] [facility] [address] [place] [address] PCP - General Internal Medicine 11/04/11 documented as of this encounter
--- OUTSIDE RECORDS SUMMARY | 2024-07-26 18:08 | XMS_ITS | Encounter Summary ---
Author Organization [facility] Address [address] [place] [address] Care Team Providers Care Parking Meter Collector Name Role Phone Juventino Howe MD Primary Care Provider [phone] Encounter Details Date Type Department Care Team (Late st Contact Info) Description 08/13/2005 Outpatient Historical [facility] Internal Medicine [facility] [address] [facility] [address] [place] [address] Randal Clark MD [address] [place] [address] Social History Tobacco Use Types Packs/Day Years Used Date Smoking Tobacco: Never Assessed Comments Unknown Sex and Gender Information Value Date Recorded Sex Assigned at Not on file Legal Sex Female 3:38 AM INCIDENT RESPONSE COORDINATOR Gender Identity Not on file Sexual Orientation Not on file documented as of this encounter Last Filed Vital Signs Vital Sign Reading Time Taken Comments Blood Pressure 120/86 08/13/2005 11:15 AM CDT Pulse 88 08/13/2005 11:15 AM CDT Temperature 36.6 C (97.9 F) 08/13/2005 11:15 AM CDT Respiratory Rate 20 08/13/2005 11:15 AM CDT Oxygen Saturation - - Inhaled Oxygen Concentration - - Weight 66.7 kg (147 lb) 08/13/2005 11:15 AM CDT Height 158.1 cm (5' 2.25) 08/13/2005 11:15 AM C DT Body Mass Index 26.67 08/13/2005 11:15 AM CDT documented in this encounter Plan of Treatment Upcoming Encounters Date Type Department Care Team (Late st Contact Info) Description 07/31/2024 5:00 PM CDT Appointment [facility] Therapy Services [place] [address] [address] Chandler Spivey PA [address] [facility] [address] [place] [address] Maegan Duncan, Physical Therapist 08/02/2024 5:00 PM CDT Appointment [facility] Neuro Rehabilitation [address] [place] [address] Jonathan Cortez MD [address] [facility] [address] [address]x0 (Work) Sarah Estrada, OPERATING ROOM SCHEDULER 08/09/2024 5:00 PM CDT Appointment [facility] [address] [address] Chandler Spivey PA [address] [facility] [address] [place] [address] Maegan Duncan, Physical Therapist 08/30/2024 3:30 PM CDT Office Visit [facility] Internal Medicine Medical [place] A [facility] [address] [facility] [address] [address] Juventino Howe MD [address] [facility] [address] [place] [address] 10/31/2024 3:00 PM CDT Office Visit [facility] Pulmonology [facility] [address] [place] [address] Everett Cam MD [address] [facility] [address] [place] [address] 12/28/2024 2:45 PM INCIDENT RESPONSE COORDINATOR Office Visit [facility] Endocrinology [address] [place] [address] Sheldon Canales MD [address] [facility] [address] [place] [address] 02/26/2025 3:10 PM INCIDENT RESPONSE COORDINATOR Office Visit [facility] Gastroenterology [facility] [address] [facility] 1200 [place] [address] Suzette Cody MD [address] [facility] 1200 [place] [address] documented as of this encounter Visit Diagnoses Not on filedocumented in this encounter Additional Health Concerns Infection Onset Date Last Indicated Resolved Time R/O Respiratory 01/11/2023 01/11/2023 01/11/2023 7 :48 PM INCIDENT RESPONSE COORDINATOR R/O Respiratory 02/19/2024 02/19/2024 02/19/2024 1 1:21 AM INCIDENT RESPONSE COORDINATOR Influenza 02/19/2024 02/19/2024 02/26/2024 1:16 AM INCIDENT RESPONSE COORDINATOR R/O Respiratory 03/13/2024 03/13/2024 03/13/2024 4 :20 PM INCIDENT RESPONSE COORDINATOR Human Metapneumovirus 03/13/2024 03/13/20242024 1:16 AM INCIDENT RESPONSE COORDINATOR R/O C. diff 03/13/2024 03/13/2024 03/14/2024 8:00 PM INCIDENT RESPONSE COORDINATOR R/O C. diff 03/14/2024 03/14/2024 03/15/2024 6:17 PM INCIDENT RESPONSE COORDINATOR documented as of this encounter Care Teams Parking Meter Collector Relationship Specialty Start Date End Date Juventino Howe MD [address] [facility] [address] [place] [address] PCP - General Internal Medicine 11/04/11 documented as of this encounter
--- OUTSIDE RECORDS SUMMARY | 2024-07-26 18:08 | XMS_ITS | Encounter Summary ---
Author Organization [facility] Address [address] [place] [address] Care Team Providers Care Online Merchandising Manager Name Role Phone Juventino Howe MD Primary Care Provider [phone] Encounter Details Date Type Department Care Team (Late st Contact Info) Description 08/30/2006 Outpatient Historical [facility] Lynne Escobar MD [address] [place] [address] Unspecified Functional Disorder of Intestine (Primary Dx) Social History Tobacco Use Types Packs/Day Years Used Date Smoking Tobacco: Never Assessed Comments Unknown Sex and Gender Information Value Date Recorded Sex Assigned at Not on file Legal Sex Female 3:38 AM BOX OFFICE ATTENDANT Gender Identity Not on file Sexual Orientation Not on file documented as of this encounter Plan of Treatment Upcoming Encounters Date Type Department Care Team (Late Contact Info) Description 07/31/2024 5:00 PM CDT Appointment [facility] Therapy Services [address] [address] Chandler Spivey PA [address] [facility] [address] [place] [address] Maegan Duncan, Physical Therapist 08/02/2024 5:00 PM CDT Appointment [facility] Neuro Rehabilitation [place] [address] [facility] [address] Jonathan Cortez MD [address] [facility] [address] [address]x0 (Work) Sarah Estrada, DIRECTOR CLIENT SERVICES 08/09/2024 5:00 PM CDT Appointment [facility] [address] [facility] 145 [place] [address] Chandler Spivey PA [address] [facility] [address] [place] [address] Maegan Duncan, Physical Therapist 08/30/2024 3:30 PM CDT Office Visit [facility] Internal Medicine Medical [place] [facility] [address] [facility] [address] [address] Juventino Howe MD [address] [facility] [address] [place] [address] 10/31/2024 3:00 PM CDT Office Visit [facility] Pulmonology [facility] [address] [facility] [address] [place] [address] Everett Cam MD [address] [facility] [address] [place] [address] 12/28/2024 2:45 PM BOX OFFICE ATTENDANT Office Visit [facility] Endocrinology [address] [facility] [address] [place] [address] Sheldon Canales MD [address] [facility] [address] [place] [address] 02/26/2025 3:10 PM BOX OFFICE ATTENDANT Office Visit [facility] Gastroenterology [facility] [address] [facility] 1200 [place] [address] Suzette Cody MD [address] [facility] 1200 [place] [address] documented as of this encounter Visit Diagnoses Diagnosis Unspecified functional disorder of intestine- Primary documented in this encounter Additional Health Concerns Infection Onset Date Last Indicated Resolved Time R/O Respiratory 01/11/2023 01/11/2023 01/11/2023 7 :48 PM BOX OFFICE ATTENDANT R/O Respiratory 02/19/2024 02/19/2024 02/19/2024 1 1:21 AM BOX OFFICE ATTENDANT Influenza 02/19/2024 02/19/2024 02/26/2024 1:16 AM BOX OFFICE ATTENDANT R/O Respiratory 03/13/2024 03/13/2024 03/13/2024 4 :20 PM BOX OFFICE ATTENDANT Human Metapneumovirus 03/13/2024 03/13/20242024 1:16 AM BOX OFFICE ATTENDANT R/O C. diff 03/13/2024 03/13/2024 03/14/2024 8:00 PM BOX OFFICE ATTENDANT R/O C. diff 03/14/2024 03/14/2024 03/15/2024 6:17 PM BOX OFFICE ATTENDANT documented as of this encounter Care Teams Online Merchandising Manager Relationship Specialty Start Date End Date Juventino Howe MD [address] [facility] [address] [place] [address] PCP - General Internal Medicine 11/04/11 documented as of this encounter
--- OUTSIDE RECORDS SUMMARY | 2024-07-26 18:08 | XMS_ITS | Encounter Summary ---
Author Organization [facility] Address [address] [place] [address] Care Team Providers Care Trial Judge Name Role Phone Juventino Howe MD Primary Care Provider [phone] Encounter Details Date Type Department Care Team (Late st Contact Info) Description 10/03/2007 Outpatient Historical [facility] Batsheva Escobar MD [address] [place] [address] Flatulence, Eructation, and Gas Pain Social History Tobacco Use Types Packs/Day Years Used Date Smoking Tobacco: Never Assessed Comments Unknown Sex and Gender Information Value Date Recorded Sex Assigned at Not on file Legal Sex Female 3:38 AM SHORT STORY WRITER Gender Identity Not on file Sexual Orientation Not on file documented as of this encounter Plan of Treatment Upcoming Encounters Date Type Department Care Team (Late Contact Info) Description 07/31/2024 5:00 PM CDT Appointment [facility] Therapy Services [address] [address] Chandler Spivey PA [address] [place] [place] [address] Maegan Duncan, Physical Therapist 08/02/2024 5:00 PM CDT Appointment [facility] Neuro Rehabilitation [place] [address] [facility] [place] [address] Jonathan Cortez MD [address] [facility] [address] [address]x0 (Work) Sarah Estrada, PAPERBOARD BOX MAKER 08/09/2024 5:[address] [facility] [address] [facility] 145 [place] [address] Chandler Spivey PA [address] [facility] [address] [place] [address] Maegan Duncan, Physical Therapist 08/30/2024 3:30 PM CDT Office Visit [facility] Internal Medicine Medical [place] A [facility] [address] [facility] [address] Juventino Howe MD [address] [facility] [address] [facility] [address] [place] [address] 10/31/2024 3:00 PM CDT Office Visit [facility] Pulmonology [facility] [address] [facility] [address] [place] [address] Everett Cam MD [address] [facility] [address] [place] [address] 12/28/2024 2:45 PM SHORT STORY WRITER Office Visit [facility] Endocrinology [address] [facility] [address] [place] [address] Sheldon Canales MD [address] [facility] [address] [place] [address] 02/26/2025 3:10 PM SHORT STORY WRITER Office Visit [facility] Gastroenterology [facility] [address] [facility] 1200 [place] [address] Suzette Cody MD [address] [facility] 1200 [place] [address] documented as of this encounter Procedures Procedure Name Priority Date/Time Associated Diagnosis Comments US ABDOMEN LIMITED Timed Study 10/03/2007 9: 14 AM CDT documented in this encounter Results * US ABDOMEN LIMITED (10/03/2007 9:14 AM CDT) Anatomical Region Laterality Modality Abdomen Other 10/03/2007 9:14 AM CDT Narrative 10/03/2007 10:00 AM CDT [facility] [address] [place], [place] [address] Admit Date: 10/03/2007 EPIFANIO OROSCO Sex: F Admit Prov: BATSHEVA ESCOBAR Date: 1960 Primary Care Prov: CMRN: [id number] [id number] [facility] Ordering Prov: N/A Accession Number: [id number] Interpretation Examination: Ultrasound Abdomen Limited (Gallbladder and Liver) Clinical History: Abdominal pain and bloating.. Findings: The liver is normal in size and echotexture without biliary dilation or distinct mass. The common hepatic duct measures 4 mm. The main portal vein is patent with hepatopetal blood flow. The hepatic veins are also patent. The gallbladder is normal in appearance without gallstones, gallbladder wall thickening, or pericholecystic fluid. The visualized portion of the pancreas is unremarkable. Impression: Normal ultrasound of the liver, gallbladder, pancreas, and biliary tree. . Dictated by: Angela PERERA 10/03/2007 09:59 Electronically signed by: Angela PERERA 10/03/2007 10:00 Procedure Note Donny Perera MD - 10/03/2007 [facility] [address] [place], [place] [address] Admit Date: 10/03/2007 EPIFANIO OROSCO Sex: F Admit Prov: BATSHEVA ESCOBAR Date: 1960 Primary Care Prov: CMRN: [id number] Room: [facility] SSN: [id number] IMAGING SERVICES Ordering Prov: N/A Interpretation Examination: Ultrasound Abdomen Limited (Gallbladder and Liver) Clinical History: Abdominal pain and bloating.. Findings: The liver is normal in size and echotexture withoutbiliary dilation or distinct mass. The common hepatic duct measures 4 mm.The main portal vein is patent with hepatopetal blood flow. The hepatic veinsare also patent. The gallbladder is normal in appearance without gallstones,gallbladder wall thickening, or pericholecystic fluid. The visualized portion ofthe pancreas is unremarkable. Impression: Normal ultrasound of the liver, gallbladder, pancreas,and biliary tree. . Dictated by: Angela PERERA 10/03/2007 09:59 Electronically signed by: Angela PERERA 10/03/2007 10:00 Batsheva Escobar MD US ORDERABLES Final Result documented in this encounter Visit Diagnoses Diagnosis Flatulence, eructation, and gas pain documented in this encounter Additional Health Concerns Infection Onset Date Last Indicated Resolved Time R/O Respiratory 01/11/2023 01/11/2023 01/11/2023 7 :48 PM SHORT STORY WRITER R/O Respiratory 02/19/2024 02/19/2024 02/19/2024 1 1:21 AM SHORT STORY WRITER Influenza 02/19/2024 02/19/2024 02/26/2024 1:16 AM SHORT STORY WRITER R/O Respiratory 03/13/2024 03/13/2024 03/13/2024 4 :20 PM SHORT STORY WRITER Human Metapneumovirus 03/13/2024 03/13/20242024 1:16 AM SHORT STORY WRITER R/O C. diff 03/13/2024 03/13/2024 03/14/2024 8:00 PM SHORT STORY WRITER R/O C. diff 03/14/2024 03/14/2024 03/15/2024 6:17 PM SHORT STORY WRITER documented as of this encounter Care Teams Trial Judge Relationship Specialty Start Date End Date Juventino Howe MD [address] [facility] [address] [address] [place] [address] PCP - General Internal Medicine 11/04/11 documented as of this encounter
--- OUTSIDE RECORDS SUMMARY | 2024-07-26 18:08 | XMS_ITS | Encounter Summary ---
Author Organization [facility] Address [address] [place] [address] Care Team Providers Care Dining Room Tables Set Up Attendant Name Role Phone Juventino Howe MD Primary Care Provider [phone] Encounter Details Date Type Department Care Team (Late st Contact Info) Description 10/14/2006 Outpatient Historical [facility] Lynne Escobar MD [address] [place] [address] Abdominal Pain, Right Lower Quadrant (Primary Dx) Social History Tobacco Use Types Packs/Day Years Used Date Smoking Tobacco: Never Assessed Comments Unknown Sex and Gender Information Value Date Recorded Sex Assigned at Not on file Legal Sex Female 3:38 AM POWER DISTRIBUTION ENGINEER Gender Identity Not on file Sexual Orientation Not on file documented as of this encounter Plan of Treatment Upcoming Encounters Date Type Department Care Team (Late Contact Info) Description 07/31/2024 5:00 PM CDT Appointment [facility] Therapy Services [address] [address] Chandler Spivey PA [address] [facility] [address] [place] [address] Maegan Duncan, Physical Therapist 08/02/2024 5:00 PM CDT Appointment [facility] Neuro Rehabilitation [place] [address] [facility] [address] Jonathan Cortez MD [address] [facility] [address] [address] -x0 (Work) Sarah Estrada, AUTO CLOCKS REPAIRER 08/09/2024 5:00 PM CDT Appointment [facility] [address] [facility] 145 [place] [address] Chandler Spivey PA [address] [facility] [address] [place] [address] Maegan Duncan, Physical Therapist 08/30/2024 3:30 PM CDT Office Visit [facility] Internal Medicine Medical [place] [address] [facility] [address] [address] Juventino Howe MD [address] [facility] [address] [place] [address] 10/31/2024 3:00 PM CDT Office Visit [facility] Pulmonology [facility] [address] [facility] [address] [place] [address] Everett Cam MD [address] [facility] [address] [place] [address] 12/28/2024 2:45 PM POWER DISTRIBUTION ENGINEER Office Visit [facility] Endocrinology [address] [facility] [address] [place] [address] Sheldon Canales MD [address] [facility] [address] [place] [address] 02/26/2025 3:10 PM POWER DISTRIBUTION ENGINEER Office [facility] 1200 [address] [facility] 1200 [place] [address] Suzette Cody MD [address] [facility] 1200 [place] [address] documented as of this encounter Visit Diagnoses Diagnosis Abdominal pain, right lower quadrant- Primary documented in this encounter Additional Health Concerns Infection Onset Date Last Indicated Resolved Time R/O Respiratory 01/11/2023 01/11/2023 01/11/2023 7 :48 PM POWER DISTRIBUTION ENGINEER R/O Respiratory 02/19/2024 02/19/2024 02/19/2024 1 1:21 AM POWER DISTRIBUTION ENGINEER Influenza 02/19/2024 02/19/2024 02/26/2024 1:16 AM POWER DISTRIBUTION ENGINEER R/O Respiratory 03/13/2024 03/13/2024 03/13/2024 4 :20 PM POWER DISTRIBUTION ENGINEER Human Metapneumovirus 03/13/2024 03/13/20242024 1:16 AM POWER DISTRIBUTION ENGINEER R/O C. diff 03/13/2024 03/13/2024 03/14/2024 8:00 PM POWER DISTRIBUTION ENGINEER R/O C. diff 03/14/2024 03/14/2024 03/15/2024 6:17 PM POWER DISTRIBUTION ENGINEER documented as of this encounter Care Teams Dining Room Tables Set Up Attendant Relationship Specialty Start Date End Date Juventino Howe MD [address] [facility] [address] [place] [address] PCP - General Internal Medicine 11/04/11 documented as of this encounter
--- OUTSIDE RECORDS SUMMARY | 2024-07-26 18:08 | XMS_ITS | Encounter Summary ---
Author Organization [facility] Address [address] [place] [address] Care Team Providers Care Emergency Service Restorer Name Role Phone Juventino Howe MD Primary Care Provider [phone] Encounter Details Date Type Department Care Team (Late st Contact Info) Description 11/13/2005 Orders Only [facility] Di[facility] [id number] [place] [address]. [address] [place] [address] Randal Clark MD [address] [place] [address] Social History Tobacco Use Types Packs/Day Years Used Date Smoking Tobacco: Never Assessed Comments Unknown Sex and Gender Information Value Date Recorded Sex Assigned at Not on file Legal Sex Female 3:38 AM MEDICAID BILLER Gender Identity Not on file Sexual Orientation Not on file documented as of this encounter Progress Notes * Randal Clark MD - 11/29/2007 7:33 PM CDT TIME:01:07 pm PATIENT`S HOME PHONE: PATIENT`S WORK PHONE: PATIENT`S INSURANCE: [employer] [facility] WHO TOOK THE CALL: Asiya Corrigan J GENERAL INFORMATION PATIENT STATUS: Established Patient. PCP: joanne. ALTERNATIVE PHONE NUMBER: [phone] WHO CALLED: Patient called. PHARMACY NUMBER: [phone] PROBLEMS: Pt calls complaining of sore throat, ear ache and drainage down the back of her throat. She state she is having a productive cough with sputum of yellowish green. She has had this going on for about 7 days. She is using the allergy medication zertec and singular. Also she has been using mucinex with little to no relief. She would like something called in for her. SECTION 1: DOCTOR`S RESPONSE: orlando 11/13/05 at 01:28 pm MEDICATIONS: Call in to Pharmacy ATROVENT NASAL SOLUTION 0.06 %, two sprays AEROSOL NASAL THREE TIMES DAILY, 1 Dispensed, status: NEW PRESCRIPTION, 11/13/2005. DOCTOR`S OTHER RESPONSE: have pt try this to see if this helps. call back wednesday with progress SECTION 2: RN/ORTHODONTIST RESPONSE: patsyjohnny 11/13/05 at 01:36 pm No answer left a message on patient`s recorder. to call FINAL ACTION: filippo 11/13/05 at 01:44 pm Spoke with patient 11/13/05 at 01:44 pm. pt states that she has been using atrovent, nasacort, nasonex, and astelin before the mucinex and has had no relief with any of them. She is scheduled to havesurgery on 11/20 and wants to get this under control before they have to cancel her surgery. SECTION 3: DOCTOR`S RESPONSE: orlando 11/13/05 at 01:59 pm DOCTOR`S OTHER RESPONSE: this is likely going to take time to get under control and unfortunately ihave no control over this. i would cont with the current tx - if she is no better by wednesday then appt with me FINAL ACTION: filippo 11/13/05 at 02:11 pm Spoke with patient 11/13/05 at 02:11 pm. informed her of message above. Pt voices understanding Electronically Signed by: Hanna Wellington on Sunday, November 13, 2005 documented in this encounter Plan of Treatment Upcoming Encounters Date Type Department Care Team (Late st Contact Info) Description 07/31/2024 5:00 PM CDT Appointment [facility] Therapy Services [address] [address] [address] [facility] [address] [place] [address] Chandler Spivey PA [address] [facility] [address] [place] [address] Maegan Duncan, Physical Therapist 08/02/2024 5:00 PM CDT Appointment [facility] Neuro Rehabilitation [place] [address] [facility] [place] [address] Jonathan Cortez MD [address] [facility] [address] [address]x0 (Work) Sarah Estrada, FLATLOCK SEWING 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 08/09/2024 5:00 PM CDT Appointment [facility] [address] [facility] [address] [place] [address] Chandler Spivey PA [address] [facility] [address] [place] [address] Maegan Duncan, Physical Therapist 08/30/2024 3:30 PM CDT Office Visit [facility] Internal Medicine Medical [place] [facility] [address] [facility] [address] [address] Juventino Howe MD [address] [facility] [address] [place] [address] 10/31/2024 3:00 PM CDT Office Visit [facility] Pulmonology [facility] [address] [facility] [address] [place] [address] Everett Cam MD [address] [facility] [address] [place] [address] 12/28/2024 2:45 PM MEDICAID BILLER Office Visit [facility] Endocrinology [address] [facility] [address] [place] [address] Sheldon Canales MD [address] [facility] [address] [place] [address] 02/26/2025 3:10 PM MEDICAID BILLER Office Visit [facility] Gastroenterology [facility] [address] [facility] [place] [place] [address] Suzette Cody MD [address] [place] [address] [place] [address] documented as of this encounter Visit Diagnoses Not on filedocumented in this encounter Additional Health Concerns Infection Onset Date Last Indicated Resolved Time R/O Respiratory 01/11/2023 01/11/2023 01/11/2023 7 :48 PM MEDICAID BILLER R/O Respiratory 02/19/2024 02/19/2024 02/19/2024 1 1:21 AM MEDICAID BILLER Influenza 02/19/2024 02/19/2024 02/26/2024 1:16 AM MEDICAID BILLER R/O Respiratory 03/13/2024 03/13/2024 03/13/2024 4 :20 PM MEDICAID BILLER Human Metapneumovirus 03/13/2024 03/13/20242024 1:16 AM MEDICAID BILLER R/O C. diff 03/13/2024 03/13/2024 03/14/2024 8:00 PM MEDICAID BILLER R/O C. diff 03/14/2024 03/14/2024 03/15/2024 6:17 PM MEDICAID BILLER documented as of this encounter Care Teams Emergency Service Restorer Relationship Specialty Start Date End Date Juventino Howe MD [address] [place] [address] PCP - General Internal Medicine 11/04/11 documented as of this encounter
--- OUTSIDE RECORDS SUMMARY | 2024-07-26 18:08 | XMS_ITS | Encounter Summary ---
Author Organization [facility] Address [address] [place] [address] Care Team Providers Care Fish Farm Laborer Name Role Phone Juventino Howe MD Primary Care Provider [phone] Encounter Details Date Type Department Care Team (Latest Contact Info) Description 05/25/2007 Outpatient Historical [facility] Lynne [place] MD [address] [place] [address] Abdominal Pain, Unspecified Site Social History Tobacco Use Types Packs/Day Years Used Date Smoking Tobacco: Never Assessed Comments Unknown Sex and Gender Information Value Date Recorded Sex Assigned at Not on file Legal Sex Female 3:38 AM FIRESTOPPER INSTALLER Gender Identity Not on file Sexual Orientation Not on file documented as of this encounter Plan of Treatment Upcoming Encounters Date Type Department Care Team (Late st Contact Info) Description 07/31/2024 5:00 PM CDT Appointment [facility] Therapy Services [address] [address] Chandler Spivey PA [address] [facility] [address] [place] [address] Maegan Duncan, Physical Therapist 08/02/2024 5:00 PM CDT Appointment [facility] Neuro Rehabilitation [place] [address] [place] [address] Jonathan Cortez MD [address] [facility] [address] [address] -x0 (Work) Sarah Estrada, DRYING AND WINDING SUPERVISOR 08/09/2024 5:00 PM CDT Appointment [facility] [address] [facility] 145 [place] [address] Chandler Spivey PA [address] [facility] [address] [place] [address] Maegan Duncan, Physical Therapist 08/30/2024 3:30 PM CDT Office Visit [facility] Internal Medicine Medical [place] A [facility] [address] [facility] [address] [address] Juventino Howe MD [address] [facility] [address] [place] [address] 10/31/2024 3:00 PM CDT Office Visit [facility] Pulmonology [facility] [address] [facility] [address] [place] [address] Everett Cam MD [address] [facility] [address] [place] [address] 12/28/2024 2:45 PM FIRESTOPPER INSTALLER Office Visit [facility] Endocrinology [address] [facility] [address] [place] [address] Sheldon Canales MD [address] [facility] [address] [place] [address] 02/26/2025 3:10 PM FIRESTOPPER INSTALLER Office Visit [facility] Gastroenterology [facility] [address] [facility] [address] [place] [address] Suzette Cody MD [address] [facility] [place] [address] [place] [address] documented as of this encounter Procedures Procedure Name Priority Date/Time Associated Diagnosis Comments XR ABDOMEN W DECUB AND OR ERECT 2 VW Routine 05/25/2007 10:23 AM CDT documented in this encounter Results * XR ABDOMEN W DECUB AND OR ERECT (05/25/2007 10:23 AM CDT) Anatomical Region Laterality Modality Abdomen Other 05/25/2007 10:2 3 AM CDT Narrative 05/26/2007 10:14 AM CDT [facility] [address] [place], [place] [address] Admit Date: 05/25/2007 DUYEN OROSCO Sex: F Admit Prov: LYNNE ESCOBAR Date: 1960 Primary Care Prov: CMRN: [id number] Room: [facility]: [id number] IMAGING SERVICES Ordering Prov: N/A Accession Number: [id number] Interpretation OBSTRUCTION SERIES WITHOUT CHEST X-RAY, 05/25/2007 History: Right lower side pain, constipation. Supine and upright views of the abdomen as well as a view of the pelvis demonstrate fecal material throughout the colon including the ascending colon to the level of the rectum, consistent with the given history of constipation. Hyperdense material is seen bilaterally in the pelvis, possibly related to contraceptive procedure. A single calcification in the right pelvis may represent a phlebolith. No definite calcifications over the renal contours are seen. No concerning bony lesions are evident. . Dictated by: MEREDITH ALONZO 05/25/2007 10:59 Electronically signed by: MEREDITH ALONZO 05/26/2007 10:14 Transcribed: 05/25/2007 12:48 Procedure Note Meredith Alonzo - 05/26/2007 [facility] [address] [place], [place] [address] Admit Date: 05/25/2007 DUYEN OROSCO Sex: F Admit Prov: LYNNE ESCOBAR Date: 1960 Primary Care Prov: CMRN: [id number] Room: [facility] N: [id number] IMAGING SERVICES Ordering Prov: N/A Interpretation OBSTRUCTION SERIES WITHOUT CHEST X-RAY, 05/25/2007 History: Right lower side pain, constipation. Supine and upright views of the abdomen as well as a view of thepelvis demonstrate fecal material throughout the colon including theascending colon to the level of the rectum, consistent with the given historyof constipation. Hyperdense material is seen bilaterally in thepelvis, possibly related to contraceptive procedure. A single calcificationin the right pelvis may represent a phlebolith. No definite calcificationsover the renal contours are seen. No concerning bony lesions areevident. . Dictated by: MEREDITH ALONZO 05/25/2007 10:59 Electronically signed by: MEREDITH ALONZO 05/26/2007 10:14 Transcribed: 05/25/2007 12:48 Lynne Escobar MD DIAGNOSTIC IMAGING ORDERABLES F inal Result documented in this encounter Visit Diagnoses Diagnosis Abdominal pain, unspecified site documented in this encounter Additional Health Concerns Infection Onset Date Last Indicated Resolved Time R/O Respiratory 01/11/2023 01/11/2023 01/11/2023 7 :48 PM FIRESTOPPER INSTALLER R/O Respiratory 02/19/2024 02/19/2024 02/19/2024 1 1:21 AM FIRESTOPPER INSTALLER Influenza 02/19/2024 02/19/2024 02/26/2024 1:16 AM FIRESTOPPER INSTALLER R/O Respiratory 03/13/2024 03/13/2024 03/13/2024 4 :20 PM FIRESTOPPER INSTALLER Human Metapneumovirus 03/13/2024 03/13/20242024 1:16 AM FIRESTOPPER INSTALLER R/O C. diff 03/13/2024 03/13/2024 03/14/2024 8:00 PM FIRESTOPPER INSTALLER R/O C. diff 03/14/2024 03/14/2024 03/15/2024 6:17 PM FIRESTOPPER INSTALLER documented as of this encounter Care Teams Fish Farm Laborer Relationship Specialty Start Date End Date Juventino Howe MD [address] [facility] [address] [place] [address] PCP - General Internal Medicine 11/04/11 documented as of this encounter
--- OUTSIDE RECORDS SUMMARY | 2024-07-26 18:08 | XMS_ITS | Encounter Summary ---
Author Organization [facility] Address [address] [place] [address] Care Team Providers Care Braid Cutter Name Role Phone Juventino Howe MD Primary Care Provider [phone] Encounter Details Date Type Department Care Team (Late st Contact Info) Description 10/11/2005 Outpatient Historical [facility] Lynne [place] MD [address] [place] [address] Social History Tobacco Use Types Packs/Day Years Used Date Smoking Tobacco: Never Assessed Comments Unknown Sex and Gender Information Value Date Recorded Sex Assigned at Not on file Legal Sex Female 3:38 AM SYSTEMS AUDITOR Gender Identity Not on file Sexual Orientation Not on file documented as of this encounter Plan of Treatment Upcoming Encounters Date Type Department Care Team (Late st Contact Info) Description 07/31/2024 5:00 PM CDT Appointment [facility] Therapy Services [address] [address] Chandler Spivey PA [address] [place] [address] Maegan Duncan, Physical Therapist 08/02/2024 5:00 PM CDT Appointment [facility] Neuro Rehabilitation [facility] [address] [facility] [place] [address] Jonathan Cortez MD [address] [facility] [address] [address]x0 (Work) Sarah Estrada, RYAN 08/09/2024 5:00 PM CDT Appointment [facility] [address] [place] [address] Chandler Spivey PA [address] [facility] [address] [place] [address] Maegan Duncan, Physical Therapist 08/30/2024 3:30 PM CDT Office Visit [facility] Internal Medicine Medical [place] A [place] [address] [facility] [address] [address] Juventino Howe MD [address] [facility] [address] [place] [address] 10/31/2024 3:00 PM CDT Office Visit [facility] Pulmonology [facility] [address] [facility] [address] [place] [address] Everett Cam MD [address] [facility] [address] [place] [address] 12/28/2024 2:45 PM SYSTEMS AUDITOR Office Visit [facility] Endocrinology [address] [facility] [address] [place] [address] Sheldon Canales MD [address] [facility] [address] [place] [address] 02/26/2025 3:10 PM SYSTEMS AUDITOR Office Visit [facility] Gastroenterology [place] [address] [facility] [address] [place] [place] [address] Suzette Cody MD [address] [facility] [address] [place] [address] [place] [address] documented as of this encounter Visit Diagnoses Not on filedocumented in this encounter Additional Health Concerns Infection Onset Date Last Indicated Resolved Time R/O Respiratory 01/11/2023 01/11/2023 01/11/2023 7 :48 PM SYSTEMS AUDITOR R/O Respiratory 02/19/2024 02/19/2024 02/19/2024 1 1:21 AM SYSTEMS AUDITOR Influenza 02/19/2024 02/19/2024 02/26/2024 1:16 AM SYSTEMS AUDITOR R/O Respiratory 03/13/2024 03/13/2024 03/13/2024 4 :20 PM SYSTEMS AUDITOR Human Metapneumovirus 03/13/2024 03/13/20242024 1:16 AM SYSTEMS AUDITOR R/O C. diff 03/13/2024 03/13/2024 03/14/2024 8:00 PM SYSTEMS AUDITOR R/O C. diff 03/14/2024 03/14/2024 03/15/2024 6:17 PM SYSTEMS AUDITOR documented as of this encounter Care Teams Braid Cutter Relationship Specialty Start Date End Date Juventino Howe MD [address] [facility] [address] [place] [address] PCP - General Internal Medicine 11/04/11 documented as of this encounter
--- OUTSIDE RECORDS SUMMARY | 2024-07-26 18:08 | XMS_ITS | Encounter Summary ---
Author Organization [facility] Address [address] [place] [address] Care Team Providers Care Cargoman Name Role Phone Juventino Howe MD Primary Care Provider [phone] Encounter Details Date Type Department Care Team (Late st Contact Info) Description 05/25/2007 Outpatient Historical [facility] Nixon Price Jr., MD NO ADDRESS ON FILE Abdominal or Pelvic Swelling, Mass, or Lump Social History Tobacco Use Types Packs/Day Years Used Date Smoking Tobacco: Never Assessed Comments Unknown Sex and Gender Information Value Date Recorded Sex Assigned at Not on file Legal Sex Female 3:38 AM KNOT TIER Gender Identity Not on file Sexual Orientation Not on file documented as of this encounter Plan of Treatment Upcoming Encounters Date Type Department Care Team (Late st Contact Info) Description 07/31/2024 5:00 PM CDT Appointment [facility] Therapy Services [address] [place] [address] Chandler Spivey PA [address] [place] [address] Maegan Duncan, Physical Therapist 08/02/2024 5:00 PM CDT Appointment [facility] Neuro Rehabilitation [place] [address] [address] [place] [address] Vadim Cortez MD [address] [facility] [address] [address]x0 (Work) Sarah Estrada, HONING 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 TOOL 08/09/2024 5:00 PM CDT Appointment [facility] Services [place] [address] [place] [address] Chandler Spivey PA [address] [facility] [address] [place] [address] Maegan Duncan, Physical Therapist 08/30/2024 3:30 PM CDT Office Visit [facility] Internal Medicine Medical [place] A [address] [facility] [address] [address] Juventino Howe MD [address] [facility] [address] [place] [address] 10/31/2024 3:00 PM CDT Office Visit [facility] Pulmonology [facility] [address] [facility] [address] [place] [address] Everett Cam MD [address] [facility] [address] [place] [address] 12/28/2024 2:45 PM KNOT TIER Office Visit [facility] Endocrinology [address] [facility] [address] [place] [address] Sheldon Canales MD [address] [facility] [address] [place] [address] 02/26/2025 3:10 PM KNOT TIER Office Visit [facility] Gastroenterology [place] [address] [facility] [address] [place] [address] Suzette Cody MD [address] [facility] [address] [place] [address] documented as of this encounter Procedures Procedure Name Priority Date/Time Associated Diagnosis Comments US PELVIS + TRANSVAG NON OB Timed Study 05/25/2007 9:25 AM CDT documented in this encounter Results * US PELVIS + TRANSVAG NON OB (05/25/2007 9:25 AM CDT) Anatomical Region Laterality Modality Pelvis Other 05/25/2007 9:25 AM CDT Narrative 05/25/2007 2:36 PM CDT [facility] [address] [place], [place] [address] Admit Date: 05/25/2007 DUYEN OROSCO Sex: F Admit Prov: NIXON PRICE Date: 1960 Primary Care Prov: CMRN: [id number] Room: [facility] SSN: [id number] IMAGING SERVICES Ordering Prov: N/A Accession Number: [id number] Interpretation PELVIC ULTRASOUND, 05/25/2007 Clinical History: Abnormal pelvic swelling, possible ovarian enlargement, fluid collection in the right hemipelvis demonstrated on 02/16/07. Sagittal and transverse real-time examination reveals a persistent right- sided pelvic fluid collection better seen on the transvaginal study. There is surgical absence of the uterus. TRANSVAGINAL PELVIC ULTRASOUND, 05/25/2007 There is a simple fluid collection in the right side of the pelvis measuring 2.2 x 2.0 x 2.2 cm in size similar in appearance to the previous study of 02/16/07. A lymphocele or peritoneal inclusion cyst would receive consideration. Additionally, there is a small soft tissue density in the left side of the pelvis on the current examination measuring 1.3 x 0.9 x 1.2 cm in size. This structure does not show any peristaltic motion and has echo characteristics reminiscent of ovarian tissue. A small left ovarian remnant is suspected. An endometrial implant can also have this appearance. The density in question was not visible on the previous ultrasound but could have easily been obscured by bowel. Conclusion: Right pelvic fluid collection persists, unchanged. 1.2 cm sized soft tissue density in the left side of the pelvis potentially representing an ovarian remnant. Status post hysterectomy. . Dictated by: VADIM RAZO 05/25/2007 10:13 Electronically signed by: VADIM RAZO 05/25/2007 14:36 Transcribed: 05/25/2007 12:19 AMK Procedure Note Provider, Historical - 05/25/2007 [facility] [address] [place], [place] [address] Admit Date: 05/25/2007 DUYEN OROSCO Sex: F Admit Prov: NIXON PRICE Date: 1960 Primary Care Prov: CMRN: [id number] Room: [facility] SSN: [id number] IMAGING SERVICES Ordering Prov: N/A Interpretation PELVIC ULTRASOUND, 05/25/2007 Clinical History: Abnormal pelvic swelling, possible ovarianenlargement, fluid collection in the right hemipelvis demonstrated on 02/16/07. Sagittal and transverse real-time examination reveals a persistentright- sided pelvic fluid collection better seen on the transvaginal study.There is surgical absence of the uterus. TRANSVAGINAL PELVIC ULTRASOUND, 05/25/2007 There is a simple fluid collection in the right side of the pelvis measuring 2.2 x 2.0 x 2.2 cm in size similar in appearance to theprevious study of 02/16/07. A lymphocele or peritoneal inclusion cyst wouldreceive consideration. Additionally, there is a small soft tissue density in the left sideof the pelvis on the current examination measuring 1.3 x 0.9 x 1.2 cm insize. This structure does not show any peristaltic motion and has echo characteristics reminiscent of ovarian tissue. A small left ovarianremnant is suspected. An endometrial implant can also have this appearance.The density in question was not visible on the previous ultrasound butcould have easily been obscured by bowel. Conclusion: Right pelvic fluid collection persists, unchanged. 1.2 cm sized soft tissue density in the left side of the pelvispotentially representing an ovarian remnant. Status post hysterectomy. . Dictated by: VADIM RAZO 05/25/2007 10:13 Electronically signed by: VADIM RAZO 05/25/2007 14:36 Transcribed: 05/25/2007 12:19 AMK Nixon Price Jr., MD US ORDERABLES Final R esult documented in this encounter Visit Diagnoses Diagnosis Abdominal or pelvic swelling, mass, or lump documented in this encounter Additional Health Concerns Infection Onset Date Last Indicated Resolved Time R/O Respiratory 01/11/2023 01/11/2023 01/11/2023 7 :48 PM KNOT TIER R/O Respiratory 02/19/2024 02/19/2024 02/19/2024 1 1:21 AM KNOT TIER Influenza 02/19/2024 02/19/2024 02/26/2024 1:16 AM KNOT TIER R/O Respiratory 03/13/2024 03/13/2024 03/13/2024 4 :20 PM KNOT TIER Human Metapneumovirus 03/13/2024 03/13/20242024 1:16 AM KNOT TIER R/O C. diff 03/13/2024 03/13/2024 03/14/2024 8:00 PM KNOT TIER R/O C. diff 03/14/2024 03/14/2024 03/15/2024 6:17 PM KNOT TIER documented as of this encounter Care Teams Cargoman Relationship Specialty Start Date End Date Juventino Howe MD [address] [facility] [address] [place] [address] PCP - General Internal Medicine 11/04/11 documented as of this encounter
--- OUTSIDE RECORDS SUMMARY | 2024-07-26 18:08 | XMS_ITS | Encounter Summary ---
Author Organization [facility] Address [address] [place] [address] Care Team Providers Care Program Manager Rn Name Role Phone Juventino Howe MD Primary Care Provider [phone] Encounter Details Date Type Department Care Team (Late st Contact Info) Description 07/19/2006 Outpatient Historical [facility], [address] Wendy Canales MD [address] [facility] [address] [place] [address] Urinary Tract Infection, Site not Specified (Primary Dx) Social History Tobacco Use Types Packs/Day Years Used Date Smoking Tobacco: Never Assessed Comments Unknown Sex and Gender Information Value Date Recorded Sex Assigned at Not on file Legal Sex Female 3:38 AM ICE CREAM MAKER Gender Identity Not on file Sexual Orientation Not on file documented as of this encounter Plan of Treatment Upcoming Encounters Date Type Department Care Team (Late st Contact Info) Description 07/31/2024 5:00 PM CDT Appointment [facility] [address] [address] Chandler Spivey PA [address] [facility] [address] [place] [address] Maegan Duncan, Physical Therapist 08/02/2024 5:00 PM CDT Appointment [facility] [place] [address] [facility] [place] [address] Jonathan Cortez MD [address] [facility] [address] [address] -x0 (Work) Sarah Estrada, RYAN 08/09/2024 5:00 PM CDT Appointment [facility] [address] [facility] [address] [place] [address] Chandler Spivey PA [address] [facility] [address] [place] [address] Maegan Duncan, Physical Therapist 08/30/2024 3:30 PM CDT Office Visit [facility] Internal Medicine Medical [place] [facility] [address] [address] Juventino Howe MD [address] [place] [address] 10/31/2024 3:00 PM CDT Office Visit [facility] Pulmonology [facility] [address] [facility] [address] [place] [address] Everett Cam MD [address] [place] [address] 12/28/2024 2:45 PM ICE CREAM MAKER Office Visit [facility] Endocrinology [address] [place] [address] Sheldon Canales MD [address] [facility] [address] [place] [address] 02/26/2025 3:10 PM ICE CREAM MAKER Office Visit [facility] Gastro[facility]ology [facility] [address] [facility] [address] [place] [address] Suzette Cody MD [address] [place] [address] documented as of this encounter Visit Diagnoses Diagnosis Urinary tract infection, site not specified- Primary documented in this encounter Additional Health Concerns Infection Onset Date Last Indicated Resolved Time R/O Respiratory 01/11/2023 01/11/2023 01/11/2023 7 :48 PM ICE CREAM MAKER R/O Respiratory 02/19/2024 02/19/2024 02/19/2024 1 1:21 AM ICE CREAM MAKER Influenza 02/19/2024 02/19/2024 02/26/2024 1:16 AM ICE CREAM MAKER R/O Respiratory 03/13/2024 03/13/2024 03/13/2024 4 :20 PM ICE CREAM MAKER Human Metapneumovirus 03/13/2024 03/13/20242024 1:16 AM ICE CREAM MAKER R/O C. diff 03/13/2024 03/13/2024 03/14/2024 8:00 PM ICE CREAM MAKER R/O C. diff 03/14/2024 03/14/2024 03/15/2024 6:17 PM ICE CREAM MAKER documented as of this encounter Care Teams Program Manager Rn Relationship Specialty Start Date End Date Juventino Howe MD [address] [place] [address] PCP - General Internal Medicine 11/04/11 documented as of this encounter
--- OUTSIDE RECORDS SUMMARY | 2024-07-26 18:08 | XMS_ITS | Encounter Summary ---
Author Organization [facility] Address [address] [place] [address] Care Team Providers Care Learning Specialist Name Role Phone Juventino Howe MD Primary Care Provider [phone] Encounter Details Date Type Department Care Team (Late st Contact Info) Description 04/26/2024 Abstract [facility] Oncology and Hematology [place] [address] [place] [address] Cora Perkins MD [address] [place] [address] Social History Tobacco Use Types Packs/Day Years Used Date Smoking Tobacco: Former Cigarettes 0.5 40 1 04/07/1979 - 02/05/2020 Passive Smoke Exposure: Past Smokeless Tobacco: Never Alcohol Use Standard Drinks/Week Comments Not Currently 0 (1 standard drink = 0.6 oz pur e alcohol) occasionally Feeling Safe Answer Date Recorded Are you in a relationship wi th someone who hurts you emotionally and/or physically? 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 Not on file Not on file Not on file Not on file Not on file Not on file Not on file Not on file Not on file Not on file Not on file documented as of this encounter Plan of Treatment Upcoming Encounters Date Type Department Care Team (Late st Contact Info) Description 07/31/2024 5:00 PM CDT Appointment [facility] Therapy Services [place] [address] [phone] Chandler Spivey PA [address] [place] [address] Maegan Duncan, Physical Therapist 08/02/2024 5:00 PM CDT Appointment [facility] Neuro Rehabilitation [address] [address] Jonathan Cortez MD [address] [facility] [address] [address] -x0 (Work) Sarah Estrada, POSTER 08/09/2024 5:00 PM CDT Appointment [facility] Therapy [facility] [address] [phone] Chandler Spivey, PA [address] [place] [address] Maegan Duncan, Physical Therapist 08/30/2024 3:30 PM CDT Office Visit [facility] Internal Medicine Medical [facility] [address] [facility] [address] [address] Juventino Howe MD [address] [facility] [address] [place] [address] 10/31/2024 3:00 PM CDT Office Visit [facility] Pulmonology [place] [address] [facility] [address] [place] [address] Everett Cam MD [address] [facility] [address] [place] [address] 12/28/2024 2:45 PM JIG BORING MACHINE SET UP OPERATOR Office Visit [facility] Endocrinology [address] [facility] [address] [place] [address] Sheldon Canales MD [address] [facility] [address] [place] [address] 02/26/2025 3:10 PM JIG BORING MACHINE SET UP OPERATOR Office Visit [facility] Gastroenterology [place] [address] [facility] [address] [place] [address] Suzette Cody MD [address] [facility] [address] [place] [address] documented as of this encounter Visit Diagnoses Not on filedocumented in this encounter Care Teams Learning Specialist Relationship Specialty Start Date End Date Juventino Howe MD [address] [facility] [address] [place] [address] PCP - General Internal Medicine 11/04/11 documented as of this encounter
--- OUTSIDE RECORDS SUMMARY | 2024-07-26 18:08 | XMS_ITS | Encounter Summary ---
Author Organization [facility] Address [address] [place] [address] Care Team Providers Care Appeals Writer Name Role Phone Juventino Howe MD Primary Care Provider [phone] Encounter Details Date Type Department Care Team (Late st Contact Info) Description 10/05/2007 Outpatient Historical [facility] Nixon Price Jr., MD NO ADDRESS ON FILE Abnormal Mammogram, Unspecified Social History Tobacco Use Types Packs/Day Years Used Date Smoking Tobacco: Never Assessed Comments Unknown Sex and Gender Information Value Date Recorded Sex Assigned at Not on file Legal Sex Female 3:38 AM TAR ROOFER Gender Identity Not on file Sexual Orientation Not on file documented as of this encounter Plan of Treatment Upcoming Encounters Date Type Department Care Team (Late st Contact Info) Description 07/31/2024 5:00 PM CDT Appointment [facility] Therapy Services [address] [address] Chandler Spivey PA [address] [place] [address] Maegan Duncan, Physical Therapist 08/02/2024 5:00 PM CDT Appointment [facility] Neuro Rehabilitation [place] [address] [place] [address] Jonathan Cortez MD [address] [facility] [address] [address] -x0 (Work) Sarah Estrada, PARKING ENFORCEMENT OFFICER 08/09/2024 5:00 PM CDT Appointment [facility] Services [place] [address] [place] [address] Chandler Spivey PA [address] [facility] [address] [place] [address] Maegan Ducnan, Physical Therapist 08/30/2024 3:30 PM CDT Office Visit [facility] Internal Medicine Medical [place] [address] [facility] [address] [address] Juventino Howe MD [address] [facility] [address] [place] [address] 10/31/2024 3:00 PM CDT Office Visit [facility] Pulmonology [facility] [address] [facility] [address] [place] [address] Everett Cam MD [address] [facility] [address] [place] [address] 12/28/2024 2:45 PM TAR ROOFER Office Visit [facility] Endocrinology [address] [facility] [address] [place] [address] Sheldon Canales MD [address] [facility] [address] [place] [address] 02/26/2025 3:10 PM TAR ROOFER Office Visit [facility] Gastroenterology [place] [address] [facility] [address] [place] [address] Suzette Cody MD [address] [facility] [address] [place] [address] documented as of this encounter Procedures Procedure Name Priority Date/Time Associated Diagnosis Comments US PELVIS + TRANSVAG NON OB Timed Study 10/05/2007 9:45 AM CDT documented in this encounter Results * US PELVIS + TRANSVAG NON OB (10/05/2007 9:45 AM CDT) Anatomical Region Laterality Modality Pelvis Other 10/05/2007 9:45 AM CDT Narrative 10/05/2007 10:18 PM CDT [place] [address] [place], [place] [address] Admit Date: 10/05/2007 DUYEN OROSCO Sex: F Admit Prov: NIXON PRICE Date: 1960 Primary Care Prov: CMRN: [id number] [facility] [address] [place] [address] IMAGING SERVICES Ordering Prov: N/A Accession Number: [id number] Interpretation EXAMINATION: ULTRASOUND OF THE PELVIS TRANSABDOMINAL 10/05/2007 Clinical History: Pain, previous hysterectomy. Findings: Transabdominal examination fails to demonstrate the uterus. Additional findings will be described at ultrasound endovaginal study. EXAMINATION: ULTRASOUND ENDOVAGINAL STUDY 10/05/2007 Clinical History: Previous hysterectomy, pain. Findings: Transabdominal and endovaginal images demonstrate no distinct fluid collections. Uterus and ovaries are absent. No distinct mass is seen. Impression: Normal postoperative pelvis. . Dictated by: Angela PERERA 10/05/2007 09:56 Electronically signed by: Angela PERERA 10/05/2007 22:17 Transcribed: 10/05/2007 14:01 SJ Procedure Note Donny Perera MD - 10/05/2007 [address] [place], [place] [address] Admit Date: 10/05/2007 DUYEN OROSCO Sex: F Admit Prov: NIXON PRICE Date: 1960 Primary Care Prov: CMRN: [id number] [facility]N: [address] [place] [address] IMAGING SERVICES Ordering Prov: N/A Interpretation EXAMINATION: ULTRASOUND OF THE PELVIS TRANSABDOMINAL 10/05/2007 Clinical History: Pain, previous hysterectomy. Findings: Transabdominal examination fails to demonstrate theuterus. Additional findings will be described at ultrasound endovaginalstudy. EXAMINATION: ULTRASOUND ENDOVAGINAL STUDY 10/05/2007 Clinical History: Previous hysterectomy, pain. Findings: Transabdominal and endovaginal images demonstrate nodistinct fluid collections. Uterus and ovaries are absent. No distinct mass isseen. Impression: Normal postoperative pelvis. . Dictated by: Angela PERERA 10/05/2007 09:56 Electronically signed by: Angela PERERA 10/05/2007 22:17 Transcribed: 10/05/2007 14:01 SJ us Nixon Price Jr., MD ORDERABLES Final R esult documented in this encounter Visit Diagnoses Diagnosis Abnormal mammogram, unspecified documented in this encounter Additional Health Concerns Infection Onset Date Last Indicated Resolved Time R/O Respiratory 01/11/2023 01/11/2023 01/11/2023 7 :48 PM TAR ROOFER R/O Respiratory 02/19/2024 02/19/2024 02/19/2024 1 1:21 AM TAR ROOFER Influenza 02/19/2024 02/19/2024 02/26/2024 1:16 AM TAR ROOFER R/O Respiratory 03/13/2024 03/13/2024 03/13/2024 4 :20 PM TAR ROOFER Human Metapneumovirus 03/13/2024 03/13/20242024 1:16 AM TAR ROOFER R/O C. diff 03/13/2024 03/13/2024 03/14/2024 8:00 PM TAR ROOFER R/O C. diff 03/14/2024 03/14/2024 03/15/2024 6:17 PM TAR ROOFER documented as of this encounter Care Teams Appeals Writer Relationship Specialty Start Date End Date Juventino Howe MD [address] [facility] [address] [place] [address] PCP - General Internal Medicine 11/04/11 documented as of this encounter
--- OUTSIDE RECORDS SUMMARY | 2024-07-26 18:08 | XMS_ITS | Encounter Summary ---
Author Organization [facility] Address [address] [place] [address] Care Team Providers Care Associate Professor Of Violin Name Role Phone Juventino Howe MD Primary Care Provider [phone] Encounter Details Date Type Department Care Team (Latest Contact Info) Description 10/31/2007 Outpatient Historical [facility] Batsheva Escobar MD [address] [place] [address] Flatulence, Eructation, and Gas Pain Social History Tobacco Use Types Packs/Day Years Used Date Smoking Tobacco: Never Assessed Comments Unknown Sex and Gender Information Value Date Recorded Sex Assigned at Not on file Legal Sex Female 3:38 AM PULMONOLOGY PHYSICIAN Gender Identity Not on file Sexual Orientation Not on file documented as of this encounter Plan of Treatment Upcoming Encounters Date Type Department Care Team (Late st Contact Info) Description 07/31/2024 5:00 PM CDT Appointment [facility] Therapy Services [address] [address] Chandler Spivey PA [address] [facility] [address] [place] [address] Maegan Duncan, Physical Therapist 08/02/2024 5:00 PM CDT Appointment [facility] Neuro Rehabilitation [facility] [address] [place] [address] Jonathan Cortez MD [address] [facility] [address] [address] -x0 (Work) Sarah Estrada, RYAN 08/09/2024 5:00 PM CDT Appointment [facility] [address] [facility] [address] [place] [address] Chandler Spivey PA [address] [facility] [address] [place] [address] Maegan Duncan, Physical Therapist 08/30/2024 3:30 PM CDT Office Visit [facility] Internal Medicine Medical [place] A [facility] [address] [facility] [address] [address] Juventino Howe MD [address] [facility] [address] [place] [address] 10/31/2024 3:00 PM CDT Office Visit [facility] Pulmonology [facility] [address] [facility] [address] [place] [address] Everett Cma MD [address] [facility] [address] [place] [address] 12/28/2024 2:45 PM PULMONOLOGY PHYSICIAN Office Visit [facility] Endocrinology [address] [facility] [address] [place] [address] Sheldon Canales MD [address] [facility] [address] [place] [address] 02/26/2025 3:10 PM PULMONOLOGY PHYSICIAN Office Visit [facility] Gastroenterology [facility] [address] [facility] [address] [place] [address] Suzette Cody MD [address] [facility] [address] [place] [address] documented as of this encounter Procedures Procedure Name Priority Date/Time Associated Diagnosis Comments NM HEPATOBIL W PHARM INTERV Timed Study 10/31/2007 10:26 AM CDT documented in this encounter Results * NM HEPATOBIL W EJECT FRACTION (10/31/2007 10:26 AM CDT) Anatomical Region Laterality Modality Abdomen Other 10/31/2007 10:2 6 AM CDT Narrative 10/31/2007 11:57 AM CDT [address] [address] Admit Date: 10/31/2007 EPIFANIO OROSCO Sex: F Admit Prov: BATSHEVA ESCOBAR Date: 1960 Primary Care Prov: CMRN: [id number] Room: [facility] SSN: [address] [place] [address] IMAGING SERVICES Ordering Prov: N/A Accession Number: [id number] Interpretation Hepatobiliary imaging with CCK History: 47-year-old female with recent visit to the emergency room with elevated liver enzymes, constipation, nausea and bloating after eating. Procedure: 5.3 mCi 99m technetium Choletec with 1.45 mcg CCK infused over 30 minutes beginning at 50 minutes into the study Findings: Liver has normal morphology and good hepatocellular uptake. Intrahepatic biliary radicles are seen at 9 minutes. Common bile duct is seen at 11 minutes. Small bowel is seen at 22 minutes. Gallbladder is seen at 22 minutes. Post CCK ejection fraction is depressed at 19 %. Impressions: Abnormal hepatobiliary imaging study with gallbladder ejection fraction of 19 %. Findings are consistent with the clinical diagnosis of biliary dyskinesia. . Dictated by: CATRINA ARANDA 10/31/2007 11:53 Electronically signed by: CATRINA ARANDA 10/31/2007 11:55 Procedure Note Catrina Aranda MD - 10/31/2007 [address] [address] [address] [place], [place] [address] Admit Date: 10/31/2007 EPIFANIO OROSCO Sex: F Admit Prov: BATSHEVA ESCOBAR Date: 1960 Primary Care Prov: CMRN: [id number] Room: [facility] SSN: [id number] IMAGING SERVICES Ordering Prov: N/A Interpretation Hepatobiliary imaging with CCK History: 47-year-old female with recent visit to the emergency roomwith elevated liver enzymes, constipation, nausea and bloating aftereating. Procedure: 5.3 mCi 99m technetium Choletec with 1.45 mcg CCK infusedover 30 minutes beginning at 50 minutes into the study Findings: Liver has normal morphology and good hepatocellular uptake. Intrahepatic biliary radicles are seen at 9 minutes. Common bile duct is seen at 11 minutes. Small bowel is seen at 22 minutes. Gallbladder is seen at 22 minutes. Post CCK ejection fraction is depressed at 19 %. Impressions: Abnormal hepatobiliary imaging study with gallbladderejection fraction of 19 %. Findings are consistent with the clinical diagnosisof biliary dyskinesia. . Dictated by: CATRINA ARANDA 10/31/2007 11:53 Electronically signed by: CATRINA ARANDA 10/31/2007 11:55 Batsheva Escobar MD NM ORDERABLES Final Result documented in this encounter Visit Diagnoses Diagnosis Flatulence, eructation, and gas pain documented in this encounter Additional Health Concerns Infection Onset Date Last Indicated Resolved Time R/O Respiratory 01/11/2023 01/11/2023 01/11/2023 7 :48 PM PULMONOLOGY PHYSICIAN R/O Respiratory 02/19/2024 02/19/2024 02/19/2024 1 1:21 AM PULMONOLOGY PHYSICIAN Influenza 02/19/2024 02/19/2024 02/26/2024 1:16 AM PULMONOLOGY PHYSICIAN R/O Respiratory 03/13/2024 03/13/2024 03/13/2024 4 :20 PM PULMONOLOGY PHYSICIAN Human Metapneumovirus 03/13/2024 03/13/20242024 1:16 AM PULMONOLOGY PHYSICIAN R/O C. diff 03/13/2024 03/13/2024 03/14/2024 8:00 PM PULMONOLOGY PHYSICIAN R/O C. diff 03/14/2024 03/14/2024 03/15/2024 6:17 PM PULMONOLOGY PHYSICIAN documented as of this encounter Care Teams Associate Professor Of Violin Relationship Specialty Start Date End Date Juventino Howe MD [address] [facility] [address] [place] [address] PCP - General Internal Medicine 11/04/11 documented as of this encounter
--- OUTSIDE RECORDS SUMMARY | 2024-07-26 18:08 | XMS_ITS | Encounter Summary ---
Author Organization [facility] Address [address] [place] [address] Care Team Providers Care Commercial Real Estate Broker Name Role Phone Juventino Howe MD Primary Care Provider [phone] Reason for Referral * Radiology Services (Routine) - Authorized Specialty Diagnoses / Procedures Referred By Jackelyn t Referred To Contact Diagnoses Visit for screening mammogram Procedures MAMMO 3D LESIA SCREEN BILAT W OR WO CAD CHG SCREENING MAMMOGRAPHY BI 2-VIEW BREAST INC CAD CHG SCREENING DIGITAL BREAST TOMOSYNTHESIS BI Shea Gross NP [address] [place] [address] Phone: tel: fax: Referral ID Status Reason Start Date Expiration Date V isits Requested Visits Authorized [id number] Authorized 07/26/2024 08/26/2025 1 1 Reason for Visit * Reason Comments Well Woman Exam * Eval and Treat (Routine) - Closed Specialty Diagnoses / Procedures Referred By Contac t Referred To Contact Diagnoses Well woman exam with routine gynecological exam Procedures [place] OFFICE/OUTPATIENT ESTABLISHED MOD MDM 30 MIN [place] OFFICE/OUTPATIENT NEW MODERATE MDM 45 MINUTES Juventino Howe MD [address] [place] [address] Phone: tel: fax: Referral ID Status Reason Start Date Expiration Date Visits Re quested Visits Authorized [id number] Closed 12/08/2023 12/07/2024 1 1 Encounter Details Date Type Department Care Team (Latest Contact Info) Description 07/26/2024 2:45 PM CDT Office Visit [facility] FOOD SERVICE CASHIER [facility] [address] [facility] [address] [place] [address] Shea Gross NP [address] [place] [address] Well woman exam with routine gynecological exam (Primary Dx); Visit for screening mammogram; Urine retention; Abdominal tenderness, rebound tenderness presence not specified, unspecified location; Dyssynergic defecation Social History Tobacco Use Types Packs/Day Years [...] who hurts you emotionally and/or physically? 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 Not on file Not on file Not on file Not on file Not on file Not on file Not on file Not on file Not on file Not on file Not on file documented as of this encounter Last Filed Vital Signs Vital Sign Reading Time Taken Comments Blood Pressure 149/69 07/26/2024 2:46 PM CDT Pulse 110 07/26/2024 2:46 PM CDT Temperature - - Respiratory Rate - - Oxygen Saturation - - Inhaled Oxygen Concentration - - Weight 68 kg (150 lb) 07/26/2024 2:46 PM CDT Height 157.5 cm (5' 2) 07/26/2024 2:46 PM CDT Body Mass Index 27.44 07/26/2024 2:46 PM CDT documented in this encounter Progress Notes * Shea Gross, EDUCATIONAL TECHNOLOGY COORDINATOR - 07/26/2024 2:54 PM CDT CC: here for my annual exam Subjective: Duyen Orosco is a 64 y.o. female patient who presents for her annual well woman exam. She is able to empty bladder, but has concerns she has residual urine. She states she has been fatigued in the evening and sometimes does not do bowel regimen with enema and gets backed up. Patient does not recall when last pap was. Her last mammogram was normal 10/2023 Her last colonoscopy was 2023. She has had a bone density screening. Osteoporosis 2021-Endo manages. GynHx: Hx of left breast biopsy. S/p total hysterectomy for fibroid/endo. She is heterosexual and is not currently sexually active. No concerns about domestic violence. Current Outpatient Medications on File Prior to Visit Medication Sig Dispense Refill predniSONE (DELTASONE) 5 mg tablet Take 1 and 1/2 Tablets (7.5 mg) by mouth daily with breakfast. 135 Tablet 1 ALPRAZolam (Xanax) 0.25 mg tablet Take 1 Tablet (0.25 mg) by mouth 1 time daily as needed for Anxiety. 15 Tablet 0 albuterol (PROVENTIL,VENTOLIN) 2.5 mg /3 mL (0.083 %) Solution for Nebulization Take 3 mL (2.5 mg) by inhalation every 4 hours as needed for Shortness of Breath. Dx: J44.9 360 mL 6 albuterol sulfate HFA 90 mcg/actuation aerosol inhaler Take 2 Puffs by inhalation every 6 hours as needed for Wheezing. 8.5 Gram 1 cyanocobalamin (VITAMIN B-12) 1,000 mcg/mL Solution Inject 1 mL (1,000 mcg) by intramuscular injection every 30 days. 9 mL 0 rosuvastatin (Crestor) 10 mg tablet Take 1 Tablet (10 mg) by mouth daily. 90 Tablet 0 tiZANidine (ZANAFLEX) 4 mg Tablet Take 1 Tablet (4 mg) by mouth every 6 hours as needed for Spasm. 30 Tablet 0 fluticasone propionate (FLONASE) 50 mcg/spray [place], Suspension nasal inhaler Administer 2 Sprays in each nostril daily. hyoscyamine sulfate 0.125 mg tablet Take 1 Tablet (0.125 mg) by mouth 3 times daily. As needed 90 Tablet 1 Syringe with Needle, Disp, (BD Luer-Luanne Syringe) 3 mL 25 gauge x 1 Syringe USE DIRECTED ONCE A MONTH 11 Each 0 folic acid (FOLVITE) 1 mg tablet Take 1 Tablet (1 mg) by mouth daily. 90 Tablet 3 smicehqqpop-jcklktjisbpo-twfhmeqzcv (Trelegy Ellipta) 200-62.5-25 mcg Disk with Device Take 1 Puff by inhalation daily. Rinse mouth well after use 60 Each 11 cholecalciferol 1,250 mcg (50,000 unit) Capsule Take 1 Capsule (50,000 Units) by mouth every 7 days. 12 Capsule 3 montelukast (SINGULAIR) 10 mg tablet Take 1 Tablet (10 mg) by mouth daily at bedtime. 90 Tablet 3 alendronate (FOSAMAX) 70 mg tablet Take 1 Tablet (70 mg) by mouth every 7 days on empty stomach before other meds, with 8 oz of water, stay upright 30 min. 12 Tablet 3 roflumilast (DALIRESP) 500 mcg Tablet Take 1 Tablet (500 mcg) by mouth daily. 90 Tablet 3 omeprazole (PriLOSEC) 20 mg Capsule, Delayed Release(E.C.) Take 1 Capsule (20 mg) by mouth daily before breakfast. 90 Capsule 0 InnoSpire Essence Device USE DIRECTED azelastine (ASTEPRO) 0.15 % (205.5 mcg) nasal spray Administer 1 [place] in each nostril 2 times daily. 30 mL 3 No current facility-administered medications on file prior to visit. Past Medical History: Diagnosis Date Adrenal insufficiency Pt states she tends to go into crisis after surgery Anemia, unspecified Anxiety Asthma Bladder Cancer 1983 COPD (chronic obstructive pulmonary disease) ([facility]) Depression Endometriosis Gastroparesis GERD (gastroesophageal reflux disease) Headache High cholesterol Hyperlipidemia Hyperparathyroidism secondary to vitamin D deficiency Leiomyoma nos Low serum cortisol level Osteoporosis 05/24/2024 Temporomandibular disorder Family History Problem Relation Name Age of Onset Cancer Father jose Hypertension Father jose Other Father jose tobacco use High Cholesterol Father jose Stroke Father jose Liver Disease Father jose Blood Clots Father jose Hypertension Mother maria dolores Other Mother maria dolores tobacco use Cancer Mother maria dolores High Cholesterol Mother maria dolores Heart Failure Mother maria dolores Colon Polyps Mother maria dolores Diabetes Maternal Uncle Heart Disease Maternal Uncle Celiac Disease Neg Hx Colon Cancer Neg Hx Crohn's Disease Neg Hx Pancreatic Cancer Neg Hx Breast Cancer Neg Hx Ovarian Cancer Neg Hx ROS: Feeling well. No dyspnea or chest pain on exertion. No abdominal pain, change in bowel habits.No excessive fatigue or significant changes in weight. Denies any burning, urgency, frequency or pain with urination. ALLIANCE DIRECTOR ROS: No abnormal bleeding, pelvic pain or discharge, no breast pain or new or enlarging lumps on self exam. Stress urinary incontinence minimal. Urge incontinence No. Pt has known cystocele that will put pressure on her rectum. Objective: The patient appears well groomed, well nourished and in no apparent distress. BP (!) 149/69 Pulse (!) 110 Ht 5' 2 (1.575 m) Wt 68 kg (150 lb) LMP (LMP Unknown) BMI 27.44 kg/m?? General: A&O, no distress Resp: even and unlabored Abdomen: soft, generalized lower abdominal tenderness. Pt states this is her baseline due to dyssynergic defecation requiring enema for BM. Lower extremities: no edema Back: no CVAT BREAST EXAM: normal appearance, no masses or tenderness. PELVIC EXAM: Ext/BUS: no lesions and atrophic Urethral meatus: normal size,location, appearance Urethra: no masses, tenderness Bladder: no fullness, palpable masses or tenderness. Vagina: surgically absent, vaginal cuff WNL Cervix: surgically absent Uterus: surgically absent Adnexa: No obvious mass. Assessment: ICD-10-CM ICD-9-CM 1. Well woman exam with routine gynecological exam Z01.419 V72.31 2. Visit for screening mammogram Z12.31 V76.12 MAMMO 3D LESIA SCREEN BILAT W OR WO CAD 3. Urine retention R33.9 788.20 URINE CULTURE URINE CULTURE 4. Abdominal tenderness, rebound tenderness presence not specified, unspecified location R10.819 789.60 5. Dyssynergic defecation K59.02 564.02 Plan: No pap Mammogram UTD. Encouraged monthly self breast examinations. Colonoscopy up to date Yes Osteoporosis: managed by Dr. Canales Urine retention/generalized lower abdominal tenderness: offered straight cath after void today, declined. Follow up urine culture. Denies UTI symptoms. She states she will improve BM regimen and follow up if urinary retention persists as she thinks her bowels are backed up. She is aware to go to EDif she is unable to void. If generalized abdominal tenderness persists, consider TVUS to evaluate ovaries. Return annually or prn. CJ Moreau- documented in this encounter Plan of Treatment Upcoming Encounters Date Type Department Care Team (Late st Contact Info) Description 07/31/2024 5:00 PM CDT Appointment [facility] [address] [address] Chandler Spivey PA [address] [place] [address] Maegan Duncan, Physical Therapist 08/02/2024 5:00 PM CDT Appointment [facility] [address] [address] Jonathan Cortez MD [address] [facility] [address] [place] [address] -x0 (Work) Sarah Estrada, ZONE MANAGER 08/09/2024 5:00 PM CDT Appointment [facility] [address] [address] Chandler Spivey PA [address] [place] [address] Maegan Duncan, Physical Therapist 08/30/2024 3:30 PM CDT Office Visit [facility] Internal Medicine Medical [place] [facility] [address] [facility] [address] [place] [address] Juventino Howe MD [address] [facility] [address] [place] [address] 10/31/2024 3:00 PM CDT Office Visit [facility] Pulmonology [facility] [address] [place] [address] Everett Cam MD [address] [facility] [address] [place] [address] 12/28/2024 2:45 PM COOKER CHIP Office Visit [facility] Endocrinology [address] [facility] [address] [place] [address] Sheldon Canales MD [address] [facility] [address] [place] [address] 02/26/2025 3:10 PM COOKER CHIP Office Visit [facility]astro[facility] [address] [facility] [address] [place] [address] Suzette Cody MD [address] [facility] [address] [place] [address] Scheduled Orders Name Type Priority Associated Diagnoses Orde r Schedule MAMMO 3D LESIA SCREEN BILAT W OR WO CAD Imaging Routine Visit for screening mammogram Expected: 07/26/2024 (Approximate), Expires: 07/26/2025 URINE CULTURE Microbiology Routine Urine retention Expected: 07/26/2024, Expires: 07/26/2025 documented as of this encounter Visit Diagnoses Diagnosis Well woman exam with routine gynecological exam- Primary Routine gynecological examination Visit for screening mammogram Other screening mammogram Urine retention Retention of urine, unspecified Abdominal tenderness, rebound tenderness presence not specified, unspecified location Dyssynergic defecation documented in this encounter Additional Health Concerns Assessment Noted Time PHQ-9 Depression Total Score: 1 07/27/19 25 2:00 PM CDT documented as of this encounter Care Teams Commercial Real Estate Broker Relationship Specialty Start Date End Date Juventino Howe MD [address] [facility] [address] [place] [address] PCP - General Internal Medicine 11/04/11 documented as of this encounter
--- OUTSIDE RECORDS SUMMARY | 2024-07-26 18:08 | XMS_ITS | Encounter Summary ---
Author Organization [facility] Address [address] [place] [address] Care Team Providers Care Tire Layer Name Role Phone Juventino Howe MD Primary Care Provider [phone] Encounter Details Date Type Department Care Team (Late st Contact Info) Description 05/28/2024 Results Follow-Up [facility] Endocrinology [address] [facility] [address] [place] [address] Sheldon Canales MD [address] [facility] [address] [place] [address] CORTISOL LEVEL Social History Tobacco Use Types Packs/Day Years [...] No 05/11/2024 Food Insecurity Answer Date Recorded Social/Environmental Concerns No concerns Transportation Needs Answer Date Record ed Social/Environmental Concerns No concerns Housing Stability Answer Date Recorded Social/Environmental Concerns No concerns Utility Needs Answer Date Recorded Social/Environmental Concerns No concerns Comments No Sex and Gender Information Value Date Recorded Sex Assigned at Not on file Legal Sex Female 3:38 AM SOLAR WATER HEATER INSTALLER Gender Identity Not on file Sexual Orientation Not on file 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 Not on file Not on file Not on file Not on file Not on file Not on file Not on file Not on file Not on file Not on file Not on file documented as of this encounter Miscellaneous Notes * Result Encounter Note - Sheldon Canales MD - 05/28/2024 6:52 PM CDT [facility] documented in this encounter Plan of Treatment Upcoming Encounters Date Type Department Care Team (Late st Contact Info) Description 07/31/2024 5:00 PM CDT Appointment [facility] Therapy Services [place] [address] [facility] [address] [place] [address] Chandler Spivey PA [address] [facility] [address] [place] [address] Maegan Duncan, Physical Therapist 08/02/2024 5:00 PM CDT Appointment [facility] Neuro Rehabilitation [address] [address] Jonathan Cortez MD [address] [facility] [address] [place] [address] -x0 (Work) Sarah Estrada, WET PRIMER POWDER BLENDER 08/09/2024 5:00 PM CDT Appointment [facility] Therapy [facility] [address] [facility] [address] [place] [address] Chandler Spivey PA [address] [facility] [address] [place] [address] Maegan Duncan, Physical Therapist 08/30/2024 3:30 PM CDT Office Visit [facility] Internal Medicine Medical [place] [facility] [address] [facility] [address] [address] Juventino Howe MD [address] [facility] [address] [place] [address] 10/31/2024 3:00 PM CDT Office Visit [facility] Pulmonology [facility] [address] [place] [address] Everett Cam MD [address] [facility] [address] [place] [address] 12/28/2024 2:45 PM SOLAR WATER HEATER INSTALLER Office Visit [facility] Endocrinology [address] [facility] [address] [place] [address] Sheldon Canales MD [address] [facility] [address] [place] [address] 02/26/2025 3:10 PM SOLAR WATER HEATER INSTALLER Office Visit [facility] Gastroenterology [address] [place] [address] Suzette Cody MD [address] [facility] [address] [place] [address] documented as of this encounter Visit Diagnoses Not on filedocumented in this encounter Care Teams Tire Layer Relationship Specialty Start Date End Date Juventino Howe MD [address] [facility] [address] [place] [address] PCP - General Internal Medicine 11/04/11 documented as of this encounter
--- OUTSIDE RECORDS SUMMARY | 2024-07-26 18:08 | XMS_ITS | Encounter Summary ---
Author Organization [facility] Address [address] [place] [address] Care Team Providers Care Cosmetology Professor Name Role Phone Juventino Howe MD Primary Care Provider [phone] Encounter Details Date Type Department Care Team (Latest Contact Info) Description 09/21/2005 Outpatient Historical [facility] Lynne Navarro MD [address] [place] [address] Other Constipation (Primary Dx) Social History Tobacco Use Types Packs/Day Years Used Date Smoking Tobacco: Never Assessed Comments Unknown Sex and Gender Information Value Date Recorded Sex Assigned at Not on file Legal Sex Female 3:38 AM DISINTEGRATOR OPERATOR Gender Identity Not on file Sexual Orientation Not on file documented as of this encounter Plan of Treatment Upcoming Encounters Date Type Department Care Team (Late st Contact Info) Description 07/31/2024 5:00 PM CDT Appointment [facility] Therapy Services [address] [address] Chandler Spivey PA [address] [facility] [address] [place] [address] Maegan Duncan, Physical Therapist 08/02/2024 5:00 PM CDT Appointment [facility] Neuro Rehabilitation [place] [address] [place] [address] Jonathan Cortez MD [address] [facility] [address] [address] -x0 (Work) Sarah Estrada, MEDICAL CHEMIST 08/09/2024 5:00 PM CDT Appointment [facility] [address] [facility] [address] [place] [address] Chandler Spivey PA [address] [facility] [address] [place] [address] Maegan Duncan, Physical Therapist 08/30/2024 3:30 PM CDT Office Visit [facility] Internal Medicine Medical [place] [facility] [address] [facility] [address] [address] Juventino Howe MD [address] [facility] [address] [place] [address] 10/31/2024 3:00 PM CDT Office Visit [facility] Pulmonology [facility] [address] [facility] [address] [place] [address] Everett Cam MD [address] [facility] [address] [place] [address] 12/28/2024 2:45 PM DISINTEGRATOR OPERATOR Office Visit [facility] Endocrinology [address] [facility] [address] [place] [address] Sheldon Canales MD [address] [facility] [address] [place] [address] 02/26/2025 3:10 PM DISINTEGRATOR OPERATOR Office Visit [facility] Gastroenterology [facility] [address] [facility] [address] [place] [address] Suzette Cody MD [address] [facility] [address] [place] [address] documented as of this encounter Procedures Procedure Name Priority Date/Time Associated Diagnosis Comments CBC WITH DIFFERENTIAL Routine 09/21/2005 4:49 PM CDT CBC WITH DIFFERENTIAL Routine 09/21/2005 4:49 PM CDT C-REACTIVE PROTEIN Routine 09/21/2005 4: 49 PM CDT documented in this encounter Results * CBC WITH DIFFERENTIAL (09/21/2005 4:49 PM CDT) NEUTROPHILS 59 45 - 70 % INTERFAC E SYSTEM LYMPHOCYTES 33 16 - 45 % INTERFAC E SYSTEM MONOCYTES 7 3 - 13 % INTERFACE SYSTEM EOSINOPHILS 1 0 - 7 % INTERFAC E SYSTEM BASOPHILS 1 0 - 2 % INTERFACE SYSTEM NEUTROPHIL ABSOLUTE 6.73 1.90 - 7.00 K/uL INTERFACE SYSTEM LYMPHOCYTE ABSOLUTE 3.68 0.70 - 4.50 K/uL INTERFACE SYSTEM MONOCYTE ABSOLUTE 0.74 0.10 - 1.30 K/uL INTERFACE SYSTEM EOSINOPHIL ABSOLUTE 0.12 0.00 - 0.70 K/uL INTERFACE SYSTEM BASOPHILS ABSOLUTE 0.06 0.00 - 0.20 K/uL INTERFACE SYSTEM 09/21/2005 4:49 PM CDT us Lynne Escobar MD HEMATOLOGY ORDERABLES Final Res ult INTERFACE SYSTEM Refer to clinic/hospital department * (ABNORMAL) CBC WITH DIFFERENTIAL (09/21/2005 4:49 PM CDT) WBC 11.3(H) 4.0 - 9.8 K/uL INTERFACE SYSTEM RBC 4.42 3.90 - 4.90 M/uL INTERFACE SYSTEM HEMOGLOBIN 14.8 11.8 - 14.8 g/dL INTERFACE SYSTEM HEMATOCRIT 41.6 35.5 - 44.0 % INTERFACE SYSTEM MCV 94.1 82.0 - 99.0 fL INTERFACE SYSTEM MCH 33.5(H) 27.2 - 32.6 pg INTERFACE SYSTEM MCHC 35.6(H) 31.5 - 35.5 % INTERFACE SYSTEM RDW 12.5 11.5 - 14.5 % INTERFACE SYSTEM RDW-STDEV 43.2 37.1 - 48.7 fL INTERFACE SYSTEM PLATELETS 296 140 - 350 K/uL INTERFACE SYSTEM MPV 10.5 9.3 - 12.4 fL INTERFACE SYSTEM 09/21/2005 4:49 PM CDT us Lynen Escobar MD HEMATOLOGY ORDERABLES Final Res ult Performing Organization Address [facility] de Phone Number INTERFACE SYSTEM Refer to clinic/hospital department * C-REACTIVE PROTEIN (09/21/2005 4:49 PM CDT) CRP <0.2 0.0 - 0.8 mg/dL INTERFACE SYSTEM 09/21/2005 4:49 PM CDT us Lynne Escobar MD CHEMISTRY ORDERABLES Final Resu lt Performing Organization Address [facility] Phone Number INTERFACE SYSTEM Refer to clinic/hospital department documented in this encounter Visit Diagnoses Diagnosis Other constipation- Primary documented in this encounter Additional Health Concerns Infection Onset Date Last Indicated Resolved Time R/O Respiratory 01/11/2023 01/11/2023 01/11/2023 7 :48 PM DISINTEGRATOR OPERATOR R/O Respiratory 02/19/2024 02/19/2024 02/19/2024 1 1:21 AM DISINTEGRATOR OPERATOR Influenza 02/19/2024 02/19/2024 02/26/2024 1:16 AM DISINTEGRATOR OPERATOR R/O Respiratory 03/13/2024 03/13/2024 03/13/2024 4 :20 PM DISINTEGRATOR OPERATOR Human Metapneumovirus 03/13/2024 03/13/20242024 1:16 AM DISINTEGRATOR OPERATOR R/O C. diff 03/13/2024 03/13/2024 03/14/2024 8:00 PM DISINTEGRATOR OPERATOR R/O C. diff 03/14/2024 03/14/2024 03/15/2024 6:17 PM DISINTEGRATOR OPERATOR documented as of this encounter Care Teams Cosmetology Professor Relationship Specialty Start Date End Date Juventino Howe MD [address] [facility] [address] [place] [address] PCP - General Internal Medicine 11/04/11 documented as of this encounter
--- OUTSIDE RECORDS SUMMARY | 2024-07-26 18:08 | XMS_ITS | Encounter Summary ---
Author Organization [facility] Address 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 [address] [facility] [place] [address] Jonathan Cortez MD [address] [facility] [address] [address] -x0 (Work) Sarah Estrada, RYAN 08/09/2024 5:00 PM CDT Appointment [facility] [place] [address] [place] [address] Chandler Spivey PA [address] [facility] [address] [place] [address] Maegan Duncan, Physical Therapist 08/30/2024 3:30 PM CDT Office Visit [facility] Internal Medicine Medical [place] A [address] [facility] [address] [address] Juventino Howe MD [address] [facility] [address] [place] [address] 10/31/2024 3:00 PM CDT Office Visit [facility] Pulmonology [facility] [address] [facility] [address] [place] [address] Everett Cam MD [address] [facility] [address] [place] [address] 12/28/2024 2:45 PM CLAM SHUCKING MACHINE TENDER Office Visit [facility] Endocrinology [address] [facility] [address] [place] [address] Sheldon Canales MD [address] [facility] [address] [place] [address] 02/26/2025 3:10 PM CLAM SHUCKING MACHINE TENDER Office Visit [facility] Gastroenterology [place] [address] [facility] [address] [place] [address] Suzette Cody MD [address] [facility] [address] [place] [address] [place] [address] documented as of this encounter Procedures Procedure Name Priority Date/Time Associated Diagnosis Comments PATHOLOGY Routine 04/21/2007 10:31 AM CLAM SHUCKING MACHINE TENDER documented in this encounter Results * PATHOLOGY (04/21/2007 10:31 AM CLAM SHUCKING MACHINE TENDER) FINAL REPORT [facility] [address] [place], [place] [address] Patient: DUYEN OROSCO : 1960 Procedure Date: 04/21/2007 Accession Date: 04/21/2007 Case No: [id number] Ordering Dr: LYNNE ESCOBAR Case types AW, BW, FW, NW and SH are performed by [facility], [place], [place] SURGICAL PATHOLOGY & NON-GYNECOLOGIC CYTOPATHOLOGY REPORT DIAGNOSIS SMALL INTESTINE, BIOPSY: - MINIMAL ACUTE INFLAMMATION (SEE MICROSCOPIC). STOMACH, BIOPSY: - VERY MILD CHRONIC INFLAMMATION. LARGE INTESTINE, SIGMOID COLON, BIOPSY: - HYPERPLASTIC POLYP. Specimen Description: (1) Small bowel abscesses; (2) stomach biopsy; (3) sigmoid polyp. Operative Procedure: Not specified. Patient Information/Histor y/Diagnosis: Not specified. Gross: Three containers are received labeled Duyen Orosco. The first specimen is received in a container labeled small bowel biopsy. It consists of five pieces of pink-hernandez tissue ranging from 0.1 to 0.2 cm in greatest dimension. The specimen is submitted entirely labeled A1. The second specimen is received in a container labeled stomach biopsy. It consists of two pieces of pink-hernandez tissue measuring 0.3 and 0.4 cm in greatest dimension. The specimen is submitted entirely labeled B1. The third specimen is received in a container labeled sigmoid polyp snare. It consists of a single piece of red-brown tissue measuring 0.4 cm in greatest dimension. The specimen is submitted entirely labeled C1. MA/PHC 04.21.2007 12:26 pm Microscopic: cc: Franklin Dos Santos M.D. The slides are labeled [id number], Duyen Orosco. The small intestinal biopsy shows small numbers of neutrophils within the glandular villi. Chronic inflammation is not increased. There is no blunting or distortion of the normal villous architecture. The presence of acute inflammation in this specimen is minimal and likely a nonspecific finding related to the bowel preparation. However, the possibility of a very mild active enteritis cannot be entirely excluded. The stomach biopsy consists of pieces of body mucosa showing very mild chronic inflammation in the lamina propria. There is no evidence of intestinal metaplasia, atrophy, or malignancy. Organisms morphologically consistent with Helicobacter pylori are not identified on the routine H&E- stained sections. The sigmoid colon biopsy shows tubular glands with mild hyperplastic changes and focally serrated outlines, compatible with a hyperplastic polyp. GL/PHC 04.22.2007 02:42 pm Staging Form: No. ELECTRONIC SIGNATURE FOR JF DIAMOND M.D.- 04/22/07 03:51 pm INTERFACE SYSTEM 04/21/2007 10:3 1 AM CLAM SHUCKING MACHINE TENDER us Lynne Escobar MD PATHOLOGY/CYTOLOGY ORDERABLES F inal Result INTERFACE SYSTEM Refer to clinic/hospital department documented in this encounter Visit Diagnoses Diagnosis Unspecified constipation documented in this encounter Additional Health Concerns Infection Onset Date Last Indicated Resolved Time R/O Respiratory 01/11/2023 01/11/2023 01/11/2023 7 :48 PM CLAM SHUCKING MACHINE TENDER R/O Respiratory 02/19/2024 02/19/2024 02/19/2024 1 1:21 AM CLAM SHUCKING MACHINE TENDER Influenza 02/19/2024 02/19/2024 02/26/2024 1:16 AM CLAM SHUCKING MACHINE TENDER R/O Respiratory 03/13/2024 03/13/2024 03/13/2024 4 :20 PM CLAM SHUCKING MACHINE TENDER Human Metapneumovirus 03/13/2024 03/13/20242024 1:16 AM CLAM SHUCKING MACHINE TENDER R/O C. diff 03/13/2024 03/13/2024 03/14/2024 8:00 PM CLAM SHUCKING MACHINE TENDER R/O C. diff 03/14/2024 03/14/2024 03/15/2024 6:17 PM CLAM SHUCKING MACHINE TENDER documented as of this encounter Care Teams Enforcement Safety Officer Relationship Specialty Start Date End Date Juventino Hoew MD [address] [facility] [address] [place] [address] PCP - General Internal Medicine 11/04/11 documented as of this encounter
--- OUTSIDE RECORDS SUMMARY | 2024-07-26 18:08 | XMS_ITS | Encounter Summary ---
Author Organization [facility] Address [address] [place] [address] Care Team Providers Care Hog Cutter Name Role Phone Juventino Howe MD Primary Care Provider [phone] Encounter Details Date Type Department Care Team (Late Contact Info) Description 09/30/2005 Outpatient Historical [facility] Internal Medicine [facility] [address] [facility] [address] [place] [address] Randal Clark MD [address] [place] [address] Social History Tobacco Use Types Packs/Day Years Used Date Smoking Tobacco: Never Assessed Comments Unknown Sex and Gender Information Value Date Recorded Sex Assigned at Not on file Legal Sex Female 3:38 AM WOOD PATTERN 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 Gender Identity Not on file Sexual Orientation Not on file documented as of this encounter Last Filed Vital Signs Vital Sign Reading Time Taken Comments Blood Pressure 110/70 09/30/2005 3:30 PM CDT Pulse 72 09/30/2005 3:30 PM CDT Temperature 36.5 C (97.7 F) 09/30/2005 3:30 PM CDT Respiratory Rate 16 09/30/2005 3:30 PM CDT Oxygen Saturation - - Inhaled Oxygen Concentration - - Weight 66.7 kg (147 lb) 09/30/2005 3:30 PM CDT Height 158.1 cm (5' 2.25) 09/30/2005 3:30 PM CD T Body Mass Index 26.67 09/30/2005 3:30 PM CDT documented in this encounter Plan of Treatment Upcoming Encounters Date Type Department Care Team (Late st Contact Info) Description 07/31/2024 5:00 PM CDT Appointment [facility] Therapy Services [place] [address] [address] Chandler Spivey PA [address] [facility] [address] [place] [address] Maegan Duncan, Physical Therapist 08/02/2024 5:00 PM CDT Appointment [facility] Neuro Rehabilitation [address] [place] [address] Jonathan Cortez MD [address] [facility] [address] [address] -x0 (Work) Sarah Estrada, DRUGLESS DOCTOR 08/09/2024 5:00 PM CDT Appointment [facility] [address] [address] Chandler Spivey PA [address] [facility] [address] [place] [address] Maegan Duncan, Physical Therapist 08/30/2024 3:30 PM CDT Office Visit [facility] Internal Medicine Medical [place] A [facility] [address] [facility] [address] [address] Juventino Howe MD [address] [facility] [address] [place] [address] 10/31/2024 3:00 PM CDT Office Visit [facility] Pulmonology [facility] [address] [facility] [address] [place] [address] Everett Cam MD [address] [facility] [address] [place] [address] 12/28/2024 2:45 PM WOOD PATTERN MAKER Office Visit [facility] Endocrinology [address] [facility] [address] [place] [address] Sheldon Canales MD [address] [facility] [address] [place] [address] 02/26/2025 3:10 PM WOOD PATTERN MAKER Office Visit [facility] Gastroenterology [facility] [address] [facility] [address] [place] [address] Suzette Cody MD [address] [facility] [address] [place] [address] documented as of this encounter Visit Diagnoses Not on filedocumented in this encounter Additional Health Concerns Infection Onset Date Last Indicated Resolved Time R/O Respiratory 01/11/2023 01/11/2023 01/11/2023 7 :48 PM WOOD PATTERN MAKER R/O Respiratory 02/19/2024 02/19/2024 02/19/2024 1 1:21 AM WOOD PATTERN MAKER Influenza 02/19/2024 02/19/2024 02/26/2024 1:16 AM WOOD PATTERN MAKER R/O Respiratory 03/13/2024 03/13/2024 03/13/2024 4 :20 PM WOOD PATTERN MAKER Human Metapneumovirus 03/13/2024 03/13/20242024 1:16 AM WOOD PATTERN MAKER R/O C. diff 03/13/2024 03/13/2024 03/14/2024 8:00 PM WOOD PATTERN MAKER R/O C. diff 03/14/2024 03/14/2024 03/15/2024 6:17 PM WOOD PATTERN MAKER documented as of this encounter Care Teams Hog Cutter Relationship Specialty Start Date End Date Juventino Howe MD [address] [facility] [address] [place] [address] PCP - General Internal Medicine 11/04/11 documented as of this encounter
--- OUTSIDE RECORDS SUMMARY | 2024-07-26 18:08 | XMS_ITS | Clinical Summary ---
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 with a decreased risk of diabetes. Currently, no consensus exists regarding use of hemoglobin A1c for diagnosis of diabetes in children. According to [place] Diabetes Association (ADA) guidelines, hemoglobin A1c <7.0% represents optimal control in non- diabetic patients. Different metrics may apply to specific patient populations. Standards of Medical Care in Diabetes(ADA). ESTIMATED AVERAGE GLUCOSE (MG/DL) 108 mg/dL [facility] [employer] fermin [place] ESTIMATED AVERAGE GLUCOSE (MMOL/L) 6.0 mmol/L [facility] Comment: Test Performed at: [facility] [place] [address] [address] [place] [address] Cha De La Rosa Blood 05/27/2024 10:3 1 AM CDT 05/27/2024 10:32 AM CDT Juventino Howe MD CHEMISTRY ORDERABLES Final Resul t Performing Organization Address City/State/ZIP [facility] Phone Number [facility] [phone] [facility] [address] [address] [place] [address] * VITAMIN D 25 HYDROXY (05/16/2024 8:27 AM CDT) VITAMIN D, 25 OH, TOTAL 57 30 - 100 ng/mL [facility] Comment: Vitamin D Status 25-OH Vitamin D: Deficiency: <20 ng/mL Insufficiency: 20 - 29 ng/mL Optimal: > or = 30 ng/mL For 25-OH Vitamin D testing on patients on D2-supplementation and patients for whom quantitation of D2 and D3 fractions is required, the QuestAssureD(TM) 25-OH VIT D, (D2,D3), LC/MS/MS is recommended: order code 13398 (patients >2yrs). See Note 1 Note 1 For additional information, please refer to http://education.Xigen/faq/NNH983 (This link is being provided for informational/ educational purposes only.) FASTING:YES FASTING: YES Test Performed at: [facility] [address] [facility] [place] [address] Cha De La Rosa MD Blood 05/16/2024 8:27 AM CDT 05/16/2024 8:27 AM CDT us Sheldon Canalse MD CHEMISTRY ORDERABLES Final Result Performing Organization Address [facility] Co de Phone Number [facility] [phone] [facility] [place] [address] * PTH INTACT (05/16/2024 8:27 AM CDT) Pathologist [facility] PTH INTACT 59 16 - 77 pg/mL [facility] Comment: Interpretive Guide Intact PTH Calcium ------- Normal Parathyroid Normal Normal Hypoparathyroidism Low or Low Normal Low Hyperparathyroidism Primary Normal or High High Secondary High Normal or Low Tertiary High High Non-Parathyroid Hypercalcemia Low or Low Normal High FASTING:YES FASTING: YES Test Performed at: [facility] [place] [address] Cha De La Rosa MD Blood 05/16/2024 8:27 AM CDT 05/16/2024 8:27 AM CDT us Sheldon Canales MD CHEMISTRY ORDERABLES Final Result Performing Organization Address [facility]/ZIP Co de Phone Number [facility] [phone] [facility] [address] [place] [address] * (ABNORMAL) COMPREHENSIVE METABOLIC PANEL (05/16/2024 8:27 AM CDT) Only the most recent of2 resultswithin the time period is included. GLUCOSE 70 65 - 99 mg/dL [facility] [place] Comment: Fasting reference interval BUN 12 7 - 25 mg/dL [facility] [place] CREATININE 0.99 0.50 - 1.05 mg/dL [facility] [place] GFR 64 > OR = 60 mL/min/1. 73m2 [employer] [facility] [place] BUN/CREAT RATIO SEE NOTE: 6 - 22 (calc) [facility] Comment: Not Reported: BUN and Creatinine are within reference range. SODIUM 141 135 - 146 mmol/L [facility] [place] POTASSIUM 3.7 3.5 - 5.3 mmol/L [facility] CHLORIDE 103 98 - 110 mmol/L [facility] CO2 28 20 - 32 mmol/L [facility] [place] CALCIUM 9.3 8.6 - 10.4 mg/dL [facility] [place] TOTAL PROTEIN 6.0(L) 6.1 - 8.1 g/dL [facility] [place] ALBUMIN 4.1 3.6 - 5.1 g/dL [facility] GLOBULIN 1.9 1.9 - 3.7 g/dL (calc) [facility] ALBUMIN/GLOBULIN RATIO 2.2 1.0 - 2.5 (calc) [facility] BILIRUBIN TOTAL 0.6 0.2 - 1.2 mg/dL [facility] ALKALINE PHOSPHATASE 55 37 - 153 U/L [facility] AST 14 10 - 35 U/L [facility] ALT 14 6 - 29 U/L [facility] [employer] fermin [place] Comment: FASTING:YES FASTING: YES Test Performed at: [facility] [address] [place] [address] Cha De La Rosa Blood 05/16/2024 8:27 AM CDT 05/16/2024 8:27 AM CDT us Sheldon Canales MD CHEMISTRY ORDERABLES Final Result [facility] [phone] [facility] [address] [place] [address] * VITAMIN B12 AND FOLATE (05/16/2024 8:24 AM CDT) VITAMIN B12 532 200 - 1100 pg/mL [facility] FOLATE, SERUM 7.2 ng/mL [facility] Comment: Reference Range Low: <3.4 Borderline: 3.4-5.4 Normal: >5.4 FASTING:YES FASTING: YES Test Performed at: [facility] [address] [place] [address] Cha De La Rosa MD Blood 05/16/2024 8:24 AM CDT 05/16/2024 8:24 AM CDT Juventino Howe MD CHEMISTRY ORDERABLES Final Resul t Performing Organization Address City/State/ZIP Co dc Phone Number [facility] [phone] [facility] [place] [id number] [place] [address] * (ABNORMAL) LIPID PANEL (05/16/2024 8:24 AM CDT) Pathologist [facility] CHOLESTEROL 304(H) <200 mg/dL [facility] HDL 72 > OR = 50 mg/dL [facility] TRIGLYCERIDE 321(H) <150 mg/dL [facility] Comment: If a non-fasting specimen was collected, consider repeat triglyceride testing on a fasting specimen if clinically indicated. Yves et al. J. of Clin. Lipidol. 2015;9:129-169. LDL CALCULATED 178(H) mg/dL (calc) [facility] Comment: Reference range: <100 Desirable range <100 mg/dL for primary prevention; <70 mg/dL for patients with CHD or diabetic patients with > or = 2 CHD risk factors. LDL-C is now calculated using the Almita calculation, which is a validated novel method providing better accuracy than the Friedewald equation in the estimation of LDL-C. Abo SS et al. ERLIN. 2013;310(19): 5907-8562 (http://education.Chai Energy.Rethink/faq/RII877) CHOL/HDL RATIO 4.2 <5.0 (calc) [facility] NON-HDL CHOLESTEROL 232(H) <130 mg/dL (calc) [facility] Comment: Non-HDL level > or = 220 is very high and may indicate genetic familial hypercholesterolemia (FH). Clinical assessment and measurement of blood lipid levels should be considered for all first-degree relatives of patients with an FH diagnosis. For patients with diabetes plus 1 major ASCVD risk factor, treating to a non-HDL-C goal of <100 mg/dL (LDL-C of <70 mg/dL) is considered a therapeutic option. Test Performed at: [place] [address] [address] [place] [address] [facility] De La Rosa Blood 05/16/2024 8:24 AM CDT 05/16/2024 8:24 AM CDT Juventino Howe MD CHEMISTRY ORDERABLES Final Resul t [facility] [phone] [place] [address] [address] [place] [address] * MAMMO 3D LESIA SCREEN BILAT W OR WO CAD (10/21/2023 4:52 PM CDT) Anatomical Region Laterality Modality Breast Bilateral Mammography 10/21/2023 4:52 PM CDT Impressions 10/22/2023 10:48 AM CDT IMPRESSION: Negative bilateral screening mammogram. Recommend routine followup. OVERALL FINAL ASSESSMENT: BI-RADS CATEGORY 1 - Negative. DICTATION LOCATION: [facility] Narrative 10/22/2023 10:48 AM CDT BILATERAL SCREENING DIGITAL MAMMOGRAMS WITH COMPUTER ASSISTED DIAGNOSIS WITH TOMOGRAPHY DATE: 10/21/2023 4:52 PM HISTORY: Annual screening. COMPARISON: 07/07/2021 and 11/22/2019. TECHNIQUE: A bilateral screening mammogram was performed. Low-dose full-field digital breast tomosynthesis examination was performed with 2D and 3D acquisitions. Examination is read in conjunction with computer aided detection. BREAST COMPOSITION: Scattered fibroglandular densities. FINDINGS: No new masses, suspicious calcifications, or areas of asymmetry or distortion are identified. The images were reviewed using the CAD system. Procedure Note Leonora Lynn MD - 10/22/2023 BILATERAL SCREENING DIGITAL MAMMOGRAMS WITH COMPUTER ASSISTED DIAGNOSIS WITH TOMOGRAPHY DATE: 10/21/2023 4:52 PM HISTORY: Annual screening. COMPARISON: 07/07/2021 and 11/22/2019. TECHNIQUE: A bilateral screening mammogram was performed. Low-dose full-field digital breast tomosynthesis examination was performed with 2D and 3D acquisitions. Examination is read in conjunction with computer aided detection. BREAST COMPOSITION: Scattered fibroglandular densities. FINDINGS: No new masses, suspicious calcifications, or areas of asymmetry or distortion are identified. The images were reviewed using the CAD system. IMPRESSION: Negative bilateral screening mammogram. Recommend routine followup. OVERALL FINAL ASSESSMENT: BI-RADS CATEGORY 1 - Negative. DICTATION LOCATION: [facility] Juventino Howe MD MAMMO ORDERABLES Final Result * COLONOSCOPY REPORT (04/29/2023 12:59 PM CDT) Narrative Procedure Note Suzette Cody MD - 04/29/2023 12:59 PM CDT [facility] Endoscopy Patient Name: Duyen Orosco Procedure Date: 04/29/2023 Date of : 1960 Attending MD: Suzette Cody MD, Procedure: Colonoscopy Indications: High risk colon cancer surveillance: Personal history of colonic polyps Providers: Suzette Cody MD Referring MD: Juventino Howe MD Medicines: Monitored Anesthesia Care Complications: No immediate complications. Procedure: Informed consent was obtained for the procedure, including moderate sedation after risks were discussed. Based on the pre-procedure assessment, including review of the patient's medical history, medications, allergies, and review of systems, the patient was deemed to be an appropriate candidate for sedation. A timeout was performed. Continuous ECG monitoring, pulse oximetry, blood pressure monitoring, and direct observation were performed. The Colonoscope was introduced through the anus and advanced to the cecum, identified by appendiceal orifice and ileocecal valve. The colonoscopy was performed without difficulty. The patient tolerated the procedure well. The quality of the bowel preparation was good. Estimated Blood Loss: Estimated blood loss: none. Findings: Three sessile polyps were found in the sigmoid colon, cecum and at the appendiceal orifice. The polyps were 3 to 10 mm in size. These polyps were removed with a hot snare (10mm polyp) and cold snare. Resection and retrieval were complete. Area of larger polypectomy site in the cecum was tattooed with an injection of Spot (carbon black). This polyp was in a difficult location on the back of a fold. Tattoo will allow for careful exam of that area on future colonoscopies. The sigmoid colon was moderately tortuous, fixed and anuglated due to prior pelvic floor surgeries. This was able to be maneuvered with a pediatric colonoscope. Non-bleeding internal hemorrhoids were found during retroflexion and during digital exam. The hemorrhoids were mild. The exam was otherwise without abnormality. Impression: - Three 3 to 10 mm polyps at the recto-sigmoid colon, in the cecum and at the appendiceal orifice, removed with a hot snare. Resected and retrieved. Tattooed. - Tortuous colon. - Non-bleeding internal hemorrhoids. - The examination was otherwise normal. Recommendation: - Await pathology results. - Repeat colonoscopy in 3 years for surveillance. - NO NSAIDs for 7 days. - Follow up with Dr. De La Torre as planned next month. There were no masses noted on this colonoscopy to correlate with defecography findings. Suzette Cody MD 04/29/2023 12:48:54 PM This report has been signed electronically. Number of Addenda: [address]; [place] [address] Suzette Cody MD GI PROCEDURE ORDERABLES Final Result * CT LUNG SCREENING (LDCT BASELINE OR ANNUAL) (02/01/2023 8:30 AM ACCOUNTS RECEIVABLE CLERK) Anatomical Region Laterality Modality Chest Computed Tomogra phy 02/01/2023 9:07 AM ACCOUNTS RECEIVABLE CLERK Impressions 02/02/2023 10:42 AM ACCOUNTS RECEIVABLE CLERK IMPRESSION: 1. No concerning dominant pulmonary nodules. Lung-RADS Category 1: Negative RECOMMENDATIONS: 1. Recommend annual low-dose CT screening of the chest. Narrative 02/02/2023 10:42 AM ACCOUNTS RECEIVABLE CLERK CT LUNG SCREENING (LDCT BASELINE OR ANNUAL) 02/01/2023 8:30 AM DICTATION LOCATION: [address] INDICATION: High-risk screening for lung cancer. TECHNIQUE: Axial CT images were obtained though the chest without IV contrast using a low-dose technique. Doses expected from this technique are typically less than 3 mGy. Images were also reviewed using CAD software. CTDIvol of 1.65 mGy and DLP of 56.97 mGy-cm. The examination was performed with the adjustment of mA according to the patient size and/or the use of Iterative reconstruction technique. LIMITATIONS: Low-dose, noncontrast technique limits evaluation of the solid viscera and mediastinum. COMPARISON: None. FINDINGS: PULMONARY FINDINGS: Background findings of emphysema. No concerning dominant pulmonary nodules. ADDITIONAL FINDINGS: Heart is normal in size. No pericardial effusion is visualized. There are no pathologically enlarged mediastinal or hilar lymph nodes identified. Soft tissues of the chest wall and upper abdomen are unremarkable. No aggressive osseous lesions are visualized. Procedure Note Fan Cortez MD - 02/02/2023 CT LUNG SCREENING (LDCT BASELINE OR ANNUAL) 02/01/2023 8:30 AM DICTATION LOCATION: [address] INDICATION: High-risk screening for lung cancer. TECHNIQUE: Axial CT images were obtained though the chest without IV contrast using a low-dose technique. Doses expected from this technique are typically less than 3 mGy. Images were also reviewed using CAD software. CTDIvol of 1.65 mGy and DLP of 56.97 mGy-cm. The examination was performed with the adjustment of mA according to the patient size and/or the use of Iterative reconstruction technique. LIMITATIONS: Low-dose, noncontrast technique limits evaluation of the solid viscera and mediastinum. COMPARISON: None. FINDINGS: PULMONARY FINDINGS: Background findings of emphysema. No concerning dominant pulmonary nodules. ADDITIONAL FINDINGS: Heart is normal in size. No pericardial effusion is visualized. There are no pathologically enlarged mediastinal or hilar lymph nodes identified. Soft tissues of the chest wall and upper abdomen are unremarkable. No aggressive osseous lesions are visualized. IMPRESSION: 1. No concerning dominant pulmonary nodules. Lung-RADS Category 1: Negative RECOMMENDATIONS: 1. Recommend annual low-dose CT screening of the chest. Juventino Howe MD CT ORDERABLES Final Result * XR DEXA BONE DENSITY AXIAL 1 OR MORE SITES (12/11/2021 3:43 PM CDT) Anatomical Region Laterality Modality Digital Radiogra phy 12/11/2021 3:44 PM CDT Narrative 12/11/2021 4:17 PM CDT XR DEXA BONE DENSITY AXIAL 1 OR MORE SITES DATE: 12/11/2021 3:43 PM HISTORY: 61 years old Female with post menopausal symptoms. PROCEDURE: Planar images of the lumbar spine and hip(s) using a howsimple DEXA scanner for bone mineral density determination (BMD). Absolute bone mineral density measurements (in gm/cm^2) are available on the original PACS report. Comparison is made with the prior bone density performed 07/23/2010 FINDINGS: Lumbar Spine (L1-L4) T-score: -2.6 : -12.7% change Left femoral neck T-score: -2.2 : -11.4% change Right femoral neck T-score: -2.4 : -15.7% change Comments: None IMPRESSION Osteoporotic bone mineral density. STATISTICAL CHANGE: Significant decrease in bone mineral density of the lumbar spine since the prior study. Significant decrease in bone mineral density of the left femoral neck since the prior study. Significant decrease in bone mineral density of the right femoral neck since the prior study. A statistically significant change is defined as a change of greater than 2.5 standard deviations in the least significant difference from the prior study. Least significant differences are defined as follows: Lumbar spine: +/- 0.010 g/cm2 Femoral neck: +/- 0.014 g/cm2 Forearm radius 33%: +/- 0.020 g/cm2 DEFINITIONS: Normal: T-score above -1.0 Osteopenia T-score less than -1.0 and above -2.5 Osteoporosis: T-score < -2.5 FRAX FRACTURE RISK ASSESSMENT: Risk factors: Secondary osteoporosis 10 Year Probability Of Fracture -Major Osteoporotic: 11.5% -Hip: 2.0% -Comparison population: [place], A major osteoporotic fracture is defined as a fracture of the spine, forearm, hip or shoulder. FOLLOW-UP RECOMMENDATIONS: Patients without high risk factors for osteoporosis: T-score -1.0 to -1.5 - Consider repeat BMD in 5-10 years T-score -1.5 to -2.0 - Consider repeat BMD in 3-5 years T-score -2.0 to - 2.5 - Consider repeat BMD every 2 years Patients on treatment for osteoporosis: 1-2 years after initiation of treatment and every [address] Hill Bush DO DICTATION LOCATION: Location 1 - [facility] Procedure Note Hill Bush DO - 12/11/2021 XR DEXA BONE DENSITY AXIAL 1 OR MORE SITES DATE: 12/11/2021 3:43 PM HISTORY: 61 years old Female with post menopausal symptoms. PROCEDURE: Planar images of the lumbar spine and hip(s) using a howsimple DEXA scanner for bone mineral density determination (BMD). Absolute bone mineral density measurements (in gm/cm^2) are available on the original PACS report. Comparison is made with the prior bone density performed 07/23/2010 FINDINGS: Lumbar Spine (L1-L4) T-score: -2.6 : -12.7% change Left femoral neck T-score: -2.2 : -11.4% change Right femoral neck T-score: -2.4 : -15.7% change Comments: None IMPRESSION Osteoporotic bone mineral density. STATISTICAL CHANGE: Significant decrease in bone mineral density of the lumbar spine since the prior study. Significant decrease in bone mineral density of the left femoral neck since the prior study. Significant decrease in bone mineral density of the right femoral neck since the prior study. A statistically significant change is defined as a change of greater than 2.5 standard deviations in the least significant difference from the prior study. Least significant differences are defined as follows: Lumbar spine: +/- 0.010 g/cm2 Femoral neck: +/- 0.014 g/cm2 Forearm radius 33%: +/- 0.020 g/cm2 DEFINITIONS: Normal: T-score above -1.0 Osteopenia T-score less than -1.0 and above -2.5 Osteoporosis: T-score < -2.5 FRAX FRACTURE RISK ASSESSMENT: Risk factors: Secondary osteoporosis 10 Year Probability Of Fracture -Major Osteoporotic: 11.5% -Hip: 2.0% -Comparison population: [place], A major osteoporotic fracture is defined as a fracture of the spine, forearm, hip or shoulder. FOLLOW-UP RECOMMENDATIONS: Patients without high risk factors for osteoporosis: T-score -1.0 to -1.5 - Consider repeat BMD in 5-10 years T-score -1.5 to -2.0 - Consider repeat BMD in 3-5 years T-score -2.0 to - 2.5 - Consider repeat BMD every 2 years Patients on treatment for osteoporosis: 1-2 years after initiation of treatment and every [address] Hill Bush, DICTATION LOCATION: Location 1 - [facility] us Sheldon Canales MD DIAGNOSTIC IMAGING ORDERABL ES Final Result from Last 3 Months or Most Recently Relevant to Health Maintenance Insurance RX YI PLANS (INTERNAL) [facility] Internal Plans RX [employer] Commercial RX [employer] RX Member Subscriber Plan / Payer (Ef fective 2024-Present) Name:SamijanetDuyen E Relation to Subscriber:Not on file Name:Kwesi Deborah Subscriber ID:Not on file Date of :1960 Payer ID:Not on file Type:Not on file Address: [address] [facility] PPO Advance Directives For more information, please contact: [phone] Documents on File Type Date Recorded 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 Advance Directive POA 12/21/2023 1:56 PM A dvance Directive POA * Full Code (Latest Code Status on File) Date Activated Date Inactivated Comments 03/13/2024 5:54 PM 03/15/2024 6:17 PM * Full Code Date Activated Date Inactivated Comments 02/19/2024 3:45 PM 02/23/2024 8:15 PM * Full Code Date Activated Date Inactivated Comments 12/23/2023 6:47 PM 12/24/2023 3:31 PM * Full Code Date Activated Date Inactivated Comments 12/23/2023 11:20 AM 12/23/2023 6:47 PM * Full Code Date Activated Date Inactivated Comments 08/02/2023 8:30 PM 08/04/2023 4:05 PM Care Teams Chemical Unit Operator Relationship Specialty Start Date End Date Juventino Howe MD [address] [facility] [address] [place] [address] PCP - General Internal Medicine 11/04/11
--- OUTSIDE RECORDS SUMMARY | 2024-07-26 18:08 | XMS_ITS | Encounter Summary ---
Author Organization [facility] Address [address] [place] [address] Care Team Providers Care Concrete Block Plant Supervisor Name Role Phone Juventino Howe MD Primary Care Provider [phone] Encounter Details Date Type Department Care Team (Latest Contact Info) Description 05/25/2007 Outpatient Historical HIS [facility] TRESA Price Jr., MD Gadiel NO ADDRESS ON FILE Abdominal or Pelvic Swelling, Mass, or Lump Social History Tobacco Use Types Packs/Day Years Used Date Smoking Tobacco: Never Assessed Comments Unknown Sex and Gender Information Value Date Recorded Sex Assigned at Not on file Legal Sex Female 3:38 AM DEMONSTRATOR SALES Gender Identity Not on file Sexual Orientation Not on file documented as of this encounter Plan of Treatment Upcoming Encounters Date Type Department Care Team (Late st Contact Info) Description 07/31/2024 5:00 PM CDT Appointment [facility] Therapy Services [address] [place] [address] Chandler Spivey PA [address] [place] [address] Maegan Duncan, Physical Therapist 08/02/2024 5:00 PM CDT Appointment [facility] Neuro Rehabilitation [address] [place] [address] Jonathan Cortez MD [address] [facility] [address] [address] -x0 (Work) Sarah Estrada, PLANNING ASSISTANT 08/09/2024 5:00 PM CDT Appointment [facility] [place] [address] [place] [address] Chandler Spivey PA [address] [facility] [address] [place] [address] Maegan Duncan, Physical Therapist 08/30/2024 3:30 PM CDT Office Visit [facility] Internal Medicine Medical [place] [address] [facility] [address] [address] Juventino Howe MD [address] [facility] [address] [place] [address] 10/31/2024 3:00 PM CDT Office Visit [facility] Pulmonology [facility] [address] [facility] [address] [place] [address] Everett Cam MD [address] [facility] [address] [place] [address] 12/28/2024 2:45 PM DEMONSTRATOR SALES Office Visit [facility] Endocrinology [address] [facility] [address] [place] [address] Sheldon Canales MD [address] [facility] [address] [place] [address] 02/26/2025 3:10 PM DEMONSTRATOR SALES Office Visit [facility] Gastroenterology [place] [address] [facility] [address] [place] [address] Suzette Cody MD [address] [facility] [address] [place] [address] documented as of this encounter Procedures Procedure Name Priority Date/Time Associated Diagnosis Comments CANCER ANTIGEN 125 Routine 05/25/2007 10 :27 AM CDT documented in this encounter Results * CANCER ANTIGEN 125 (05/25/2007 10:27 AM CDT) CA 125 8 <=34 U/mL [facility] Comment: Reference Range: CA-125 </= 34 U/mL (Females) Because the concentration of CA-125 in any given specimen can vary due to differences in assay methods and reagent specificity, values from different assay methods cannot be used interchangeably. Serum CA-125 levels, regardless of value, should not be interpreted as absolute evidence of the presence or absence of disease. CA-125 is not intended for use as a cancer screening test. Performed on [employer] System. Blood specimen (specimen) 05/25/2007 10:27 AM CDT 05/25/2007 10:34 AM CDT Gadiel Price Jr., MD CHEMISTRY ORDERABLES Fi nal Result [facility] [address] [place] [address] documented in this encounter Visit Diagnoses Diagnosis Abdominal or pelvic swelling, mass, or lump documented in this encounter Additional Health Concerns Infection Onset Date Last Indicated Resolved Time R/O Respiratory 01/11/2023 01/11/2023 01/11/2023 7 :48 PM DEMONSTRATOR SALES R/O Respiratory 02/19/2024 02/19/2024 02/19/2024 1 1:21 AM DEMONSTRATOR SALES Influenza 02/19/2024 02/19/2024 02/26/2024 1:16 AM DEMONSTRATOR SALES R/O Respiratory 03/13/2024 03/13/2024 03/13/2024 4 :20 PM DEMONSTRATOR SALES Human Metapneumovirus 03/13/2024 03/13/20242024 1:16 AM DEMONSTRATOR SALES R/O C. diff 03/13/2024 03/13/2024 03/14/2024 8:00 PM DEMONSTRATOR SALES R/O C. diff 03/14/2024 03/14/2024 03/15/2024 6:17 PM DEMONSTRATOR SALES documented as of this encounter Care Teams Concrete Block Plant Supervisor Relationship Specialty Start Date End Date Juventino Howe MD [address] [facility] [address] [place] [address] PCP - General Internal Medicine 11/04/11 documented as of this encounter
--- OUTSIDE RECORDS SUMMARY | 2024-07-26 18:08 | XMS_ITS | Encounter Summary ---
Author Organization [facility] Address [address] [place] [address] Care Team Providers Care Vacuum Bottle Assembler Name Role Phone Juventino Howe MD Primary Care Provider [phone] Encounter Details Date Type Department Care Team (Late st Contact Info) Description 08/09/2005 Outpatient Historical [facility] [place] [address] [facility] [address] [place] [address] Abdominal Pain, Unspecified Site (Primary Dx) Social History Tobacco Use Types Packs/Day Years Used Date Smoking Tobacco: Never Assessed Comments Unknown Sex and Gender Information Value Date Recorded Sex Assigned at Not on file Legal Sex Female 3:38 AM EXPERT WITNESS Gender Identity Not on file Sexual Orientation Not on file documented as of this encounter Plan of Treatment Upcoming Encounters Date Type Department Care Team (Late Contact Info) Description 07/31/2024 5:00 PM CDT Appointment [facility] Therapy Services [address] [place] [address] Chandler Spivey PA [address] [facility] [address] [place] [address] Maegan Duncan, Physical Therapist 08/02/2024 5:00 PM CDT Appointment [facility] Neuro Rehabilitation [place] [address] [place] [address] Jonathan Cortez MD [address] [facility] [address] [address] -x0 (Work) Sarah Estrada, RYAN 08/09/2024 5:00 PM CDT Appointment [facility] [address] [facility] [address] [place] [address] Chandler Spivey PA [address] [facility] [address] [place] [address] Maegan Duncan, Physical Therapist 08/30/2024 3:30 PM CDT Office Visit [facility] Internal Medicine Medical [place] A [facility] [address] [facility] [address] [address] Juventino Howe MD [address] [facility] [address] [place] [address] 10/31/2024 3:00 PM CDT Office Visit [facility] Pulmonology [facility] [address] [facility] [address] [place] [address] Everett Cam MD [address] [facility] [address] [place] [address] 12/28/2024 2:45 PM EXPERT WITNESS Office Visit [facility] Endocrinology [address] [facility] [address] [place] [address] Sheldon Canales MD [address] [facility] [address] [place] [address] 02/26/2025 3:10 PM EXPERT WITNESS Office Visit [facility] Gastroenterology [facility] [address] [facility] [address] [place] [address] Suzette Cody MD [address] [facility] [address] [place] [address] documented as of this encounter Procedures Procedure Name Priority Date/Time Associated Diagnosis Comments CBC WITH DIFFERENTIAL Routine 08/10/2005 5:38 AM CDT CBC WITH DIFFERENTIAL Routine 08/10/2005 5:38 AM CDT CBC WITH DIFFERENTIAL Routine 08/09/2005 7:44 PM CDT CBC WITH DIFFERENTIAL Routine 08/09/2005 7:44 PM CDT URINALYSIS W/REFLEX MICROSCOPIC Routine 08/09/2005 7:44 PM CDT C-REACTIVE PROTEIN Routine 08/09/2005 7: 44 PM CDT LIPASE Routine 08/09/2005 7:44 PM CDT AMYLASE Routine 08/09/2005 7:44 PM CDT POC GLUCOSE Routine 08/09/2005 7:11 PM CDT documented in this encounter Results * CBC WITH DIFFERENTIAL (08/10/2005 5:38 AM CDT) NEUTROPHILS 52 45 - 70 % INTERFAC E SYSTEM LYMPHOCYTES 41 16 - 45 % INTERFAC E SYSTEM MONOCYTES 5 3 - 13 % INTERFACE SYSTEM EOSINOPHILS 2 0 - 7 % INTERFAC E SYSTEM BASOPHILS 0 0 - 2 % INTERFACE SYSTEM NEUTROPHIL ABSOLUTE 5.53 1.90 - 7.00 K/uL INTERFACE SYSTEM LYMPHOCYTE ABSOLUTE 4.37 0.70 - 4.50 K/uL INTERFACE SYSTEM MONOCYTE ABSOLUTE 0.58 0.10 - 1.30 K/uL INTERFACE SYSTEM EOSINOPHIL ABSOLUTE 0.20 0.00 - 0.70 K/uL INTERFACE SYSTEM BASOPHILS ABSOLUTE 0.04 0.00 - 0.20 K/uL INTERFACE SYSTEM 08/10/2005 5:38 AM CDT us Tyler Yeung MD HEMATOLOGY ORDERABLES Final Res ult INTERFACE SYSTEM Refer to clinic/hospital department * (ABNORMAL) CBC WITH DIFFERENTIAL (08/10/2005 5:38 AM CDT) WBC 10.7(H) 4.0 - 9.8 K/uL INTERFACE SYSTEM RBC 4.25 3.90 - 4.90 M/uL INTERFACE SYSTEM HEMOGLOBIN 13.9 11.8 - 14.8 g/dL INTERFACE SYSTEM HEMATOCRIT 39.7 35.5 - 44.0 % INTERFACE SYSTEM MCV 93.4 82.0 - 99.0 fL INTERFACE SYSTEM MCH 32.7(H) 27.2 - 32.6 pg INTERFACE SYSTEM MCHC 35.0 31.5 - 35.5 % INTERFACE SYSTEM RDW 12.8 11.5 - 14.5 % INTERFACE SYSTEM RDW-STDEV 43.8 37.1 - 48.7 fL INTERFACE SYSTEM PLATELETS 226 140 - 350 K/uL INTERFACE SYSTEM MPV 10.5 9.3 - 12.4 fL INTERFACE SYSTEM 08/10/2005 5:38 AM CDT Tyler Yeung MD HEMATOLOGY ORDERABLES Final Res ult Performing Organization Address City/[facility] de Phone Number INTERFACE SYSTEM Refer to clinic/hospital department * URINALYSIS (08/09/2005 7:44 PM CDT) COLOR UA Yellow INTERFACE SYSTEM CLARITY UA Clear Clear INTERFACE SYSTEM SPECIFIC GRAVITY UA 1.005 1.001 - 1.035 INTERFACE SYSTEM PH UA 5.5 5.0 - 8.0 INTERFACE SYSTEM LEUKOCYTE ESTERASE UA Negative Negative INTERFACE SYSTEM NITRITE UA Negative Negative INTERFACE SYSTEM PROTEIN UA Negative Negative INTERFACE SYSTEM GLUCOSE UA Negative Negative INTERFACE SYSTEM KETONES UA Negative Negative INTERFACE SYSTEM UROBILINOGEN UA <1 <=1 mg/dL INTE RFACE SYSTEM BILIRUBIN UA Negative Negative INTERFA CE SYSTEM BLOOD UA Negative Negative INTERFACE SYSTEM 08/09/2005 7:44 PM CDT us Gabriel Randhawa MD URINE ORDERABLES Final Result Performing Organization Address City/[facility] de Phone Number INTERFACE SYSTEM Refer to clinic/hospital department * (ABNORMAL) CBC WITH DIFFERENTIAL (08/09/2005 7:44 PM CDT) NEUTROPHILS 57 45 - 70 % INTERFAC E SYSTEM LYMPHOCYTES 35 16 - 45 % INTERFAC E SYSTEM MONOCYTES 6 3 - 13 % INTERFACE SYSTEM EOSINOPHILS 2 0 - 7 % INTERFAC E SYSTEM BASOPHILS 0 0 - 2 % INTERFACE SYSTEM NEUTROPHIL ABSOLUTE 8.27(H) 1.90 - 7.00 K/uL INTERFACE SYSTEM LYMPHOCYTE ABSOLUTE 5.11(H) 0.70 - 4.50 K/uL INTERFACE SYSTEM MONOCYTE ABSOLUTE 0.83 0.10 - 1.30 K/uL INTERFACE SYSTEM EOSINOPHIL ABSOLUTE 0.26 0.00 - 0.70 K/uL INTERFACE SYSTEM BASOPHILS ABSOLUTE 0.05 0.00 - 0.20 K/uL INTERFACE SYSTEM 08/09/2005 7:44 PM CDT Gabriel Randhawa MD HEMATOLOGY ORDERABLES Final Result Performing Organization Address City/[facility] de Phone Number INTERFACE SYSTEM Refer to clinic/hospital department * (ABNORMAL) CBC WITH DIFFERENTIAL (08/09/2005 7:44 PM CDT) WBC 14.5(H) 4.0 - 9.8 K/uL INTERFACE SYSTEM RBC 4.91(H) 3.90 - 4.90 M/uL INTERFACE SYSTEM HEMOGLOBIN 16.5(H) 11.8 - 14.8 g/dL INTERFACE SYSTEM HEMATOCRIT 45.6(H) 35.5 - 44.0 % INTERFACE SYSTEM MCV 92.9 82.0 - 99.0 fL INTERFACE SYSTEM MCH 33.6(H) 27.2 - 32.6 pg INTERFACE SYSTEM MCHC 36.2(H) 31.5 - 35.5 % INTERFACE SYSTEM RDW 12.7 11.5 - 14.5 % INTERFACE SYSTEM RDW-STDEV 43.4 37.1 - 48.7 fL INTERFACE SYSTEM PLATELETS 289 140 - 350 K/uL INTERFACE SYSTEM MPV 10.8 9.3 - 12.4 fL INTERFACE SYSTEM 08/09/2005 7:44 PM CDT Gabriel Randhawa MD HEMATOLOGY ORDERABLES Final Result Performing Organization Address City/[facility] Co de Phone Number INTERFACE SYSTEM Refer to clinic/hospital department * C-REACTIVE PROTEIN (08/09/2005 7:44 PM CDT) CRP <0.5 0.0 - 0.8 mg/dL INTERFACE SYSTEM 08/09/2005 7:44 PM CDT Gabriel Randhawa MD CHEMISTRY ORDERABLES F inal Result Performing Organization Address City/[facility] Phone Number INTERFACE SYSTEM Refer to clinic/hospital department * LIPASE (08/09/2005 7:44 PM CDT) LIPASE 31 13 - 60 U/L INTERFAC E SYSTEM 08/09/2005 7:44 PM CDT Gabriel Randhawa MD CHEMISTRY ORDERABLES F inal Result Performing Organization Address [facility] Phone Number INTERFACE SYSTEM Refer to clinic/hospital department * AMYLASE (08/09/2005 7:44 PM CDT) AMYLASE 31 28 - 100 U/L INTERFACE SYSTEM 08/09/2005 7:44 PM CDT Gabriel Randhawa MD CHEMISTRY ORDERABLES F inal Result Performing Organization Address [facility] Phone Number INTERFACE SYSTEM Refer to clinic/hospital department * POC GLUCOSE (08/09/2005 7:11 PM CDT) COMMENT, GLU POC Notified RN INTERFACE SYSTEM GLUCOSE POC 75 65 - 109 mg/dL INTERFACE SYSTEM 08/09/2005 7:11 PM CDT Tyler Yeung MD POINT OF CARE TESTING Final Res ult Performing Organization Address [facility] Phone Number INTERFACE SYSTEM Refer to clinic/hospital department documented in this encounter Visit Diagnoses Diagnosis Abdominal pain, unspecified site- Primary documented in this encounter Additional Health Concerns Infection Onset Date Last Indicated Resolved Time R/O Respiratory 01/11/2023 01/11/2023 01/11/2023 7 :48 PM EXPERT WITNESS R/O Respiratory 02/19/2024 02/19/2024 02/19/2024 1 1:21 AM EXPERT WITNESS Influenza 02/19/2024 02/19/2024 02/26/2024 1:16 AM EXPERT WITNESS R/O Respiratory 03/13/2024 03/13/2024 03/13/2024 4 :20 PM EXPERT WITNESS Human Metapneumovirus 03/13/2024 03/13/20242024 1:16 AM EXPERT WITNESS R/O C. diff 03/13/2024 03/13/2024 03/14/2024 8:00 PM EXPERT WITNESS R/O C. diff 03/14/2024 03/14/2024 03/15/2024 6:17 PM EXPERT WITNESS documented as of this encounter Care Teams Vacuum Bottle Assembler Relationship Specialty Start Date End Date Juventino Howe MD [address] [facility] [address] [place] [address] PCP - General Internal Medicine 11/04/11 documented as of this encounter
--- OUTSIDE RECORDS SUMMARY | 2024-07-26 18:08 | XMS_ITS | Encounter Summary ---
Author Organization [facility] Address [address] [place] [address] Care Team Providers Care Web Marketing Assistant Name Role Phone Juventino Howe MD Primary Care Provider [phone] Reason for Visit * Physical Therapy (Routine) - Authorized Specialty Diagnoses / Procedures Referred By Jackelyn christensen Referred To Contact Physical Therapy Diagnoses Radiculopathy, cervical S/P cervical spinal fusion Postoperative pain Chandler Spivey PA [address] [address] Phone: tel: fax: [facility] Therapy Services [place] [address] [place] [address] Phone: tel: fax: Referral ID Status Reason Start Date Expiration Date Visits Requested Visits Authorized [id number] Authorized Performing Department to Schedule 03/28/2024 02/14/2025 60 60 Encounter Details Date Type Department Care Team (Late st Contact Info) Description 07/24/2024 5:16 PM CDT - 07/24/2024 11:59 PM CDT Hospital Encounter [facility] Therapy Services [place] [address] [place] [address] Chandler Spivey PA [address] [address] Maegan Duncan, Physical Therapist Discharge Disposition: Home or Self Care Social History Tobacco Use Types Packs/Day Years [...] on file Legal Sex Female 3:38 AM NIGHT BAKER Gender Identity Not on file Sexual Orientation Not on file 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 135 Tablet 1 06/21/2024 4:35 PM CDT 5 ALPRAZolam (Xanax) 0.25 mg tabletIndications:A nxiety state Take 1 Tablet (0.25 mg) by mouth 1 time daily as needed for Anxiety. 15 Tablet 06/21/2024 4:35 PM CDT 5 albuterol (PROVENTIL,VENTOLIN ) 2.5 mg /3 mL (0.083 %) Solution for Nebulization Take 3 mL (2.5 mg) by inhalation every 4 hours as needed for Shortness of Breath. Dx: J44.9 360 mL 6 04/06/2024 1:28 PM NIGHT BAKER 5 albuterol sulfate HFA 90 mcg/actuation aerosol inhaler Take 2 Puffs by inhalation every 6 hours as needed for Wheezing. 8.5 Gram 1 04/06/2024 1:28 PM NIGHT BAKER 5 cyanocobalamin (VITAMIN B-12) 1,000 mcg/mL SolutionIndications :Vitamin B 12 deficiency Inject 1 mL (1,000 mcg) by intramuscular injection every 30 days. 9 mL 06/01/2024 2:10 PM CDT 5 rosuvastatin (Crestor) 10 mg tabletIndications:H yperlipidemia, unspecified hyperlipidemia type Take 1 Tablet (10 mg) by mouth daily. 90 Tablet 01/28/2024 1:17 PM NIGHT BAKER 4 tiZANidine (ZANAFLEX) 4 mg Tablet Take 1 Tablet (4 mg) by mouth every 6 hours as needed for Spasm. 30 Tablet 4 fluticasone propionate (FLONASE) 50 mcg/spray [place], Suspension nasal inhaler Administer 2 Sprays in each nostril daily. hyoscyamine sulfate 0.125 mg tabletIndications:C hronic constipation,RLQ abdominal pain,Colonic inertia Take 1 Tablet (0.125 mg) by mouth 3 times daily. As needed 90 Tablet 1 11/25/2023 3:35 PM CDT 4 Syringe with Needle, Disp, (BD Luer-Luanne Syringe) 3 mL 25 gauge x 1 SyringeIndications: Vitamin B12 deficiency (non anemic) USE DIRECTED ONCE A MONTH 11 Each 4 folic acid (FOLVITE) 1 mg tablet Take 1 Tablet (1 mg) by mouth daily. 90 Tablet 3 4 fluticasone-umeclid inium-vilanterol (Trelegy Ellipta) 200-62.5-25 mcg Disk with Device Take 1 Puff by inhalation daily. Rinse mouth well after use 60 Each 11 06/27/2024 3:55 PM CDT 4 cholecalciferol 1,250 mcg (50,000 unit) CapsuleIndications: Vitamin D deficiency Take 1 Capsule (50,000 Units) by mouth every 7 days. 12 Capsule 3 4 montelukast (SINGULAIR) 10 mg tablet Take 1 Tablet (10 mg) by mouth daily at bedtime. 90 Tablet 3 01/28/2024 1:17 PM NIGHT BAKER 4 alendronate (FOSAMAX) 70 mg tabletIndications:O steoporosis, unspecified osteoporosis type, unspecified pathological fracture presence Take 1 Tablet (70 mg) by mouth every 7 days on empty stomach before other meds, with 8 oz of water, stay upright 30 min. 12 Tablet 3 01/14/2024 12:07 PM NIGHT BAKER 4 roflumilast (DALIRESP) 500 mcg Tablet Take 1 Tablet (500 mcg) by mouth daily. 90 Tablet 3 01/14/2024 12:07 PM NIGHT BAKER 4 omeprazole (PriLOSEC) 20 mg Capsule, Delayed Release(E.C.) Take 1 Capsule (20 mg) by mouth daily before breakfast. 90 Capsule 3 InnoSpire Essence Device USE DIRECTED 2 azelastine (ASTEPRO) 0.15 % (205.5 mcg) nasal spray Administer 1 [place] in each nostril 2 times daily. 30 mL 3 09/17/2020 4:02 PM CDT 1 documented as of this encounter Plan of Treatment Upcoming Encounters Date Type Department Care Team (Late st Contact Info) Description 07/31/2024 5:00 PM CDT Appointment [facility] Therapy [facility] [address] [address] Chandler Spivey PA [address] [address] Maegan Duncan, Physical Therapist 08/02/2024 5:00 PM CDT Appointment [facility] Neuro [address] [address] Jonathan Cortez MD [address] [facility] [address] [place], [place] [phone] -[phone] (Work) Sarah Estrada, SWIMMING POOL PLASTERER HELPER 08/09/2024 5:00 PM CDT Appointment [facility] Therapy [facility] [address] [phone] Chandler Spivey PA [address] [address] Maegan Duncan, Physical Therapist 08/30/2024 3:30 PM CDT Office Visit [facility] Internal Medicine Medical [place] [address] [address] Juventino Howe MD [address] [facility] [address] [place] [address] 10/31/2024 3:00 PM CDT Office Visit [facility] Pulmonology [facility] [address] [place] [address] Everett Cam MD [address] [place] [address] 12/28/2024 2:45 PM NIGHT BAKER Office Visit [facility] Endocrinology [address] [facility] [address] [facility] [address] [place] [address] Sheldon Canales MD [address] [facility] [address] [place] [address] 02/26/2025 3:10 PM NIGHT BAKER Office Visit [facility] Gastroenterology [place] [address] [facility] [address] [place] [address] Suzette Cody MD [address] [facility] [address] [facility] [address] [place] [place] [address] documented as of this encounter Visit Diagnoses Not on filedocumented in this encounter Care Teams Web Marketing Assistant Relationship Specialty Start Date End Date Juventino Howe MD [address] [place] [address] PCP - General Internal Medicine 11/04/11 documented as of this encounter
--- OUTSIDE RECORDS SUMMARY | 2024-07-26 18:08 | XMS_ITS | Encounter Summary ---
Author Organization [facility] Address [address] [place] [address] Care Team Providers Care Bank Accountant Name Role Phone Juventino Howe MD Primary Care Provider [phone] Encounter Details Date Type Department Care Team (Late st Contact Info) Description 09/24/2005 Outpatient Historical [facility] Lynne Escobar MD [address] [place] [address] Unspecified Constipation (Primary Dx) Social History Tobacco Use Types Packs/Day Years Used Date Smoking Tobacco: Never Assessed Comments Unknown Sex and Gender Information Value Date Recorded Sex Assigned at Not on file Legal Sex Female 3:38 AM AUDIOMETRIST Gender Identity Not on file Sexual Orientation Not on file documented as of this encounter Plan of Treatment Upcoming Encounters Date Type Department Care Team (Late Contact Info) Description 07/31/2024 5:00 PM CDT Appointment [facility] Therapy Services [address] [address] Chandler Spivey PA [address] [facility] [address] [place] [address] Maegan Duncan, Physical Therapist 08/02/2024 5:00 PM CDT Appointment [facility] Neuro Rehabilitation [place] [address] [facility] [place] [address] Jonathan Cortez MD [address] [facility] [address] [address] -x0 (Work) Sarah Estrada, DIE WELDER 08/09/2024 5:00 PM CDT Appointment [place] 755 [facility] 145 [place] [address] Chandler Spivey PA [address] [facility] [address] [place] [address] Maegan Duncan, Physical Therapist 08/30/2024 3:30 PM CDT Office Visit [facility] Internal Medicine Medical [place] [email or web address] [address] [facility] [address] [place] [address] Juventino Howe MD [address] [facility] [address] [place] [address] 10/31/2024 3:00 PM CDT Office Visit [facility] Pulmonology [facility] [address] [facility] [address] [place] [address] Everett Cam MD [address] [facility] [address] [place] [address] 12/28/2024 2:45 PM AUDIOMETRIST Office Visit [facility] Endocrinology [address] [facility] [address] [place] [address] Sheldon Canales MD [address] [facility] [address] [place] [address] 02/26/2025 3:10 PM AUDIOMETRIST Office Visit [facility] Gastroenterology [facility] [address] [facility] [address] [place] [address] Suzette Cody MD [address] [facility] [place] [address] [place] [address] documented as of this encounter Visit Diagnoses Diagnosis Unspecified constipation- Primary documented in this encounter Additional Health Concerns Infection Onset Date Last Indicated Resolved Time R/O Respiratory 01/11/2023 01/11/2023 01/11/2023 7 :48 PM AUDIOMETRIST R/O Respiratory 02/19/2024 02/19/2024 02/19/2024 1 1:21 AM AUDIOMETRIST Influenza 02/19/2024 02/19/2024 02/26/2024 1:16 AM AUDIOMETRIST R/O Respiratory 03/13/2024 03/13/2024 03/13/2024 4 :20 PM AUDIOMETRIST Human Metapneumovirus 03/13/2024 03/13/20242024 1:16 AM AUDIOMETRIST R/O C. diff 03/13/2024 03/13/2024 03/14/2024 8:00 PM AUDIOMETRIST R/O C. diff 03/14/2024 03/14/2024 03/15/2024 6:17 PM AUDIOMETRIST documented as of this encounter Care Teams Bank Accountant Relationship Specialty Start Date End Date Juventino Howe MD [address] [facility] [address] [place] [address] PCP - General Internal Medicine 11/04/11 documented as of this encounter
--- OUTSIDE RECORDS SUMMARY | 2024-07-26 18:08 | XMS_ITS | Encounter Summary ---
Author Organization [facility] Address [address] [place] [address] Care Team Providers Care Chief Librarian Branch Or Department Name Role Phone Juventino Howe MD Primary Care Provider [phone] Encounter Details Date Type Department Care Team (Late st Contact Info) Description 02/04/2007 Outpatient Historical [facility] Gynecologic Oncology [address] [facility] [address] [place] [address] Gadiel Price Jr., MD NO ADDRESS ON FILE Social History Tobacco Use Types Packs/Day Years Used Date Smoking Tobacco: Never Assessed Comments Unknown Sex and Gender Information Value Date Recorded Sex Assigned at Not on file Legal Sex Female 3:38 AM MAINTENANCE APPRENTICE Gender Identity Not on file Sexual Orientation Not on file documented as of this encounter Plan of Treatment Upcoming Encounters Date Type Department Care Team (Late st Contact Info) Description 07/31/2024 5:[address] [facility] Therapy Services [place] [address] [facility] 145 [place] [address] Chandler Spivey PA [address] [facility] [address] [place] [address] Maegan Duncan, Physical Therapist 08/02/2024 5:[address] [facility] Neuro Rehabilitation [facility] [address] [facility] [place] [address] Jonathan Cortez MD [address] [facility] [address] [address]x0 (Work) Sarah Estrada, RYAN 08/09/2024 5:00 PM CDT Appointment [facility] [address] [place] [address] Chandler Spivey PA [address] [facility] [address] [place] [address] Maegan Duncan, Physical Therapist 08/30/2024 3:30 PM CDT Office Visit [facility] Internal Medicine Medical [place] A [place] [address] [facility] [address] [address] Juventino Howe MD [address] [facility] [address] [place] [address] 10/31/2024 3:00 PM CDT Office Visit [facility] Pulmonology [facility] [address] [facility] [address] [place] [address] Everett Cam MD [address] [facility] [address] [place] [address] 12/28/2024 2:45 PM MAINTENANCE APPRENTICE Office Visit [facility] Endocrinology [address] [facility] [address] [place] [address] Sheldon Canales MD [address] [facility] [address] [place] [address] 02/26/2025 3:10 PM MAINTENANCE APPRENTICE Office Visit [facility] Gastroenterology [place] [address] [facility] [facility] [address] [place] [address] Suzette Cody MD [address] [facility] [address] [place] [address] documented as of this encounter Visit Diagnoses Not on filedocumented in this encounter Additional Health Concerns Infection Onset Date Last Indicated Resolved Time R/O Respiratory 01/11/2023 01/11/2023 01/11/2023 7 :48 PM MAINTENANCE APPRENTICE R/O Respiratory 02/19/2024 02/19/2024 02/19/2024 1 1:21 AM MAINTENANCE APPRENTICE Influenza 02/19/2024 02/19/2024 02/26/2024 1:16 AM MAINTENANCE APPRENTICE R/O Respiratory 03/13/2024 03/13/2024 03/13/2024 4 :20 PM MAINTENANCE APPRENTICE Human Metapneumovirus 03/13/2024 03/13/20242024 1:16 AM MAINTENANCE APPRENTICE R/O C. diff 03/13/2024 03/13/2024 03/14/2024 8:00 PM MAINTENANCE APPRENTICE R/O C. diff 03/14/2024 03/14/2024 03/15/2024 6:17 PM MAINTENANCE APPRENTICE documented as of this encounter Care Teams Chief Librarian Branch Or Department Relationship Specialty Start Date End Date Juventino Howe MD [address] [facility] [address] [place] [address] PCP - General Internal Medicine 11/04/11 documented as of this encounter
--- OUTSIDE RECORDS SUMMARY | 2024-07-26 18:08 | XMS_ITS | Encounter Summary ---
Author Organization [facility] Address [address] [place] [address] Care Team Providers Care Airplane Dispatcher Name Role Phone Juventino Howe MD Primary Care Provider [phone] Encounter Details Date Type Department Care Team (Late st Contact Info) Description 05/28/2024 Results Follow-Up [facility] Internal Medicine Medical [place] [facility] [address] [address] Juventino Howe MD [address] [facility] [address] [place] [address] HEMOGLOBIN A1C Social History Tobacco Use Types Packs/Day Years [...] on file Legal Sex Female 3:38 AM COAT OPERATOR INSULATOR Gender Identity Not on file Sexual Orientation Not on file 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 Therapy Services [place] [address] [address] Chandler Spivey PA [address] [place] [address] Maegan Duncan, Physical Therapist 08/02/2024 5:00 PM CDT Appointment [facility] Neuro Rehabilitation [address] [address] Jonathan Cortez MD [address] [facility] [address] [address]x0 (Work) Sarah Estrada, ENROLLMENT COUNSELOR 08/09/2024 5:00 PM CDT Appointment [facility] Therapy Services [place] [address] [address] Chandler Spivey PA [address] [facility] [address] [facility] [place] [address] Maegan Duncan, Physical Therapist 08/30/2024 3:30 PM CDT Office Visit [facility] Internal Medicine Medical [place] [facility] [address] [facility] [address] [address] Juventino Howe MD [address] [place] [address] [address] [place] [address] 10/31/2024 3:00 PM CDT Office Visit [facility] Pulmonology [address] [place] [address] Everett Cam MD [address] [facility] [address] [place] [address] 12/28/2024 2:45 PM COAT OPERATOR INSULATOR Office Visit [facility] Endocrinology [address] [facility] [address] [place] [address] Sheldon Canales MD [address] [facility] [address] [place] [address] 02/26/2025 3:10 PM COAT OPERATOR INSULATOR Office Visit [facility] Gastroenterology [place] [address] [facility] [address] [place] [address] Suzette Cody MD [address] [facility] [address] [place] [address] [place] [address] documented as of this encounter Visit Diagnoses Not on filedocumented in this encounter Care Teams Airplane Dispatcher Relationship Specialty Start Date End Date Juventino Howe MD [address] [facility] [address] [place] [address] PCP - General Internal Medicine 11/04/11 documented as of this encounter
--- OUTSIDE RECORDS SUMMARY | 2024-07-26 18:08 | XMS_ITS | Encounter Summary ---
Author Organization [facility] Address [address] [place] [address] Care Team Providers Care Blocker And Sewer Name Role Phone Juventino Howe MD Primary Care Provider [phone] Encounter Details Date Type Department Care Team (Latest Contact Info) Description 07/29/2007 Outpatient Historical HIS [facility] Lynne Navarro MD [address] [place] [address] Other Constipation Social History Tobacco Use Types Packs/Day Years Used Date Smoking Tobacco: Never Assessed Comments Unknown Sex and Gender Information Value Date Recorded Sex Assigned at Not on file Legal Sex Female 3:38 AM UNIVERSAL WINDING 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 Gender Identity Not on file Sexual Orientation Not on file documented as of this encounter Plan of Treatment Upcoming Encounters Date Type Department Care Team (Late st Contact Info) Description 07/31/2024 5:00 PM CDT Appointment [facility] Therapy Services [address] [address] Chandler Spivey PA [address] [facility] [address] [place] [address] Maegan Duncan, Physical Therapist 08/02/2024 5:00 PM CDT Appointment [facility] Neuro Rehabilitation [facility] [address] [facility] [place] [address] Jonathan Cortez MD [address] [facility] [address] [address]x0 (Work) Sarah Estrada, CHIEF ORDER DISPATCHER 08/09/2024 5:00 PM CDT Appointment [facility] Services [place] [address] [facility] [address] [place] [address] Chandler Spivey PA [address] [facility] [address] [place] [address] Maegan Duncan, Physical Therapist 08/30/2024 3:30 PM CDT Office Visit [facility] Internal Medicine Medical [place] A [place] [facility] [address] [address] Juventino Howe MD [address] [facility] [address] [place] [address] 10/31/2024 3:00 PM CDT Office Visit [facility] Pulmonology [facility] [address] [facility] [address] [place] [address] Everett Cam MD [address] [facility] [address] [place] [address] 12/28/2024 2:45 PM UNIVERSAL WINDING 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 Office Visit [facility] Endocrinology [address] [facility] [address] [place] [address] Sheldon Canales MD [address] [facility] [address] [place] [address] 02/26/2025 3:10 PM UNIVERSAL WINDING 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 Office Visit [facility] Gastroenterology [place] [address] [facility] [address] [place] [address] Suzette Cody MD [address] [facility] [address] [address] [place] [address] documented as of this encounter Procedures Procedure Name Priority Date/Time Associated Diagnosis Comments XR ABDOMEN 1 VW Routine 07/29/2007 11:11 AM CDT documented in this encounter Results * XR ABDOMEN 1 VW (07/29/2007 11:11 AM CDT) Anatomical Region Laterality Modality Abdomen Other 07/29/2007 11:1 1 AM CDT Narrative 07/31/2007 11:12 AM CDT [facility] [address] [place], [place] [address] Admit Date: 07/29/2007 DUYEN OROSCO Sex: F Admit Prov: LYNNE ESCOBAR Date: 1960 Primary Care Prov: CMRN: [id number] Room: [facility]: [address] [place] [address] IMAGING SERVICES Ordering Prov: N/A Accession Number: [id number] Interpretation ABDOMEN AP SINGLE VIEW. 07/29/07 History: Constipation, Sitz study. Findings: There are no radiopaque markers in the abdomen. There is a moderate amount of stool throughout the colon and rectum. There is no evidence of small bowel obstruction. There are sutures and phleboliths in the pelvis which are unchanged as compared to the previous exam of May 25, 2007. Opinion: A moderate amount of stool. . Dictated by: TAMERA FARAH 07/29/2007 11:51 Electronically signed by: TAMERA FARAH 07/31/2007 11:12 Transcribed: 07/29/2007 13:41 Procedure Note Tamera Farah MD - 07/31/2007 [facility] [address] [place], [place] [address] Admit Date: 07/29/2007 DUYEN OROSCO Sex: F Admit Prov: LYNNE ESCOBAR Date: 1960 Primary Care Prov: CMRN: [id number] [facility] [address] [place] [address] IMAGING SERVICES Ordering Prov: N/A Interpretation ABDOMEN AP SINGLE VIEW. 07/29/07 History: Constipation, Sitz study. Findings: There are no radiopaque markers in the abdomen. There ashely moderate amount of stool throughout the colon and rectum. There isno evidence of small bowel obstruction. There are sutures andphleboliths in the pelvis which are [facility] Opinion: A moderate amount of stool. . Dictated by: TAMERA FARAH 07/29/2007 11:51 Electronically signed by: TAMERA FARAH 07/31/2007 11:12 Transcribed: 07/29/2007 13:41 Lynne Escobar MD DIAGNOSTIC IMAGING ORDERABLES F inal Result documented in this encounter Visit Diagnoses Diagnosis Other constipation documented in this encounter Additional Health Concerns Infection Onset Date Last Indicated Resolved Time R/O Respiratory 01/11/2023 01/11/2023 01/11/2023 7 :48 PM UNIVERSAL WINDING 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 R/O Respiratory 02/19/2024 02/19/2024 02/19/2024 1 1:21 AM UNIVERSAL WINDING 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 Influenza 02/19/2024 02/19/2024 02/26/2024 1:16 AM UNIVERSAL WINDING 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 R/O Respiratory 03/13/2024 03/13/2024 03/13/2024 4 :20 PM UNIVERSAL WINDING 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 Human Metapneumovirus 03/13/2024 03/13/20242024 1:16 AM UNIVERSAL WINDING 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 R/O C. diff 03/13/2024 03/13/2024 03/14/2024 8:00 PM UNIVERSAL WINDING 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 R/O C. diff 03/14/2024 03/14/2024 03/15/2024 6:17 PM UNIVERSAL WINDING 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 documented as of this encounter Care Teams Blocker And Sewer Relationship Specialty Start Date End Date Juventino Howe MD [address] [facility] [address] [place] [address] PCP - General Internal Medicine 11/04/11 documented as of this encounter
--- OUTSIDE RECORDS SUMMARY | 2024-07-26 18:08 | XMS_ITS | Encounter Summary ---
Author Organization [facility] Address [address] [place] [address] Care Team Providers Care Hat Cone Inspector Name Role Phone Juventino Howe MD Primary Care Provider [phone] Encounter Details Date Type Department Care Team (Late st Contact Info) Description 02/16/2007 Outpatient Historical [facility] Gadiel Price Jr., MD NO ADDRESS ON FILE Abdominal or Pelvic Swelling, Mass, or Lump Social History Tobacco Use Types Packs/Day Years Used Date Smoking Tobacco: Never Assessed Comments Unknown Sex and Gender Information Value Date Recorded Sex Assigned at Not on file Legal Sex Female 3:38 AM PALLIATIVE SENIOR NP Gender Identity Not on file Sexual Orientation Not on file documented as of this encounter Plan of Treatment Upcoming Encounters Date Type Department Care Team (Late st Contact Info) Description 07/31/2024 5:00 PM CDT Appointment [facility] Therapy Services [address] [place] [address] Chandler Spivey PA [address] [place] [address] Maegan Duncan, Physical Therapist 08/02/2024 5:00 PM CDT Appointment [facility] Neuro Rehabilitation [address] [place] [address] Jonathan Cortez MD [address] [facility] [address] [address] -x0 (Work) Sarah Estrada, AIRCONDITIONING ENGINEER 08/09/2024 5:00 PM CDT Appointment [facility] Services [place] [address] [place] [address] Chandler Spivey PA [address] [facility] [address] [place] [address] Maegan Duncan, Physical Therapist 08/30/2024 3:30 PM CDT Office Visit [facility] Internal Medicine Medical [place] A [address] [address] Juventino Howe MD [address] [facility] [address] [place] [address] 10/31/2024 3:00 PM CDT Office Visit [facility] Pulmonology [facility] [address] [facility] [address] [place] [address] Everett Cam MD [address] [facility] [address] [place] [address] 12/28/2024 2:45 PM PALLIATIVE SENIOR NP Office Visit [facility] Endocrinology [address] [facility] [address] [place] [address] Sheldon Canales MD [address] [facility] [address] [place] [address] 02/26/2025 3:10 PM PALLIATIVE SENIOR NP Office Visit [facility] Gastroenterology [place] [address] [facility] [address] [place] [address] Suzette Cody MD [address] [facility] [address] [place] [address] documented as of this encounter Procedures Procedure Name Priority Date/Time Associated Diagnosis Comments CANCER ANTIGEN 125 Routine 02/16/2007 3: 51 PM PALLIATIVE SENIOR NP documented in this encounter Results * CANCER ANTIGEN 125 (02/16/2007 3:51 PM PALLIATIVE SENIOR NP) CA 125 9 <=34 U/mL INTERFACE SYSTEM Comment: Reference Range: CA-125 </= 34 U/mL [...] for use as a cancer screening test. 02/16/2007 3:51 PM PALLIATIVE SENIOR NP us Gadiel Price Jr., MD CHEMISTRY ORDERABLES Ed ited INTERFACE SYSTEM Refer to clinic/hospital department documented in this encounter Visit Diagnoses Diagnosis Abdominal or pelvic swelling, mass, or lump documented in this encounter Additional Health Concerns Infection Onset Date Last Indicated Resolved Time R/O Respiratory 01/11/2023 01/11/2023 01/11/2023 7 :48 PM PALLIATIVE SENIOR NP R/O Respiratory 02/19/2024 02/19/2024 02/19/2024 1 1:21 AM PALLIATIVE SENIOR NP Influenza 02/19/2024 02/19/2024 02/26/2024 1:16 AM PALLIATIVE SENIOR NP R/O Respiratory 03/13/2024 03/13/2024 03/13/2024 4 :20 PM PALLIATIVE SENIOR NP Human Metapneumovirus 03/13/2024 03/13/20242024 1:16 AM PALLIATIVE SENIOR NP R/O C. diff 03/13/2024 03/13/2024 03/14/2024 8:00 PM PALLIATIVE SENIOR NP R/O C. diff 03/14/2024 03/14/2024 03/15/2024 6:17 PM PALLIATIVE SENIOR NP documented as of this encounter Care Teams Hat Cone Inspector Relationship Specialty Start Date End Date Juventino Howe MD [address] [facility] [address] [place] [address] PCP - General Internal Medicine 11/04/11 documented as of this encounter
--- OUTSIDE RECORDS SUMMARY | 2024-07-26 18:08 | XMS_ITS | Encounter Summary ---
Author Organization [facility] Address [address] [place] [address] Care Team Providers Care Manager Market Name Role Phone Juventino Howe MD Primary Care Provider Encounter Details Date Type Department Care Team (Late st Contact Info) Description 11/16/2007 Outpatient Historical [facility] [place] [address] [address] [facility] [address] [place] [address] Cholelithiasis NOS Social History Tobacco Use Types Packs/Day Years Used Date Smoking Tobacco: Never Assessed Comments Unknown Sex and Gender Information Value Date Recorded Sex Assigned at Not on file Legal Sex Female 3:38 AM CREDIT OFFICE MANAGER Gender Identity Not on file Sexual Orientation Not on file documented as of this encounter Plan of Treatment Upcoming Encounters Date Type Department Care Team (Late st Contact Info) Description 07/31/2024 5:00 PM CDT Appointment [facility] Therapy Services [address] [place] [address] Chandler Spivey PA [address] [facility] [address] [place] [address] Maegan Duncan, Physical Therapist 08/02/2024 5:00 PM CDT Appointment [facility] Neuro Rehabilitation [place] [address] [facility] [place] [address] Jonathan Cortez MD [address] [facility] [address] [address] -x0 (Work) Sarah Estrada, LOAD TALLIER 08/09/2024 5:00 PM CDT [facility]ointment [facility] [address] [facility] [address] [place] [address] Chandler Spivey PA [address] [facility] [address] [place] [address] Maegan Duncan, Physical Therapist 08/30/2024 3:30 PM CDT Office Visit [facility] Internal Medicine Medical [place] A [facility] [address] [facility] [address] [address] Juventino Howe MD [address] [facility] [address] [place] [address] 10/31/2024 3:00 PM CDT Office Visit [facility] Pulmonology [facility] [address] [facility] [address] [place] [address] Everett Cam MD [address] [facility] [address] [place] [address] 12/28/2024 2:45 PM CREDIT OFFICE MANAGER Office Visit [facility] Endocrinology [address] [facility] [address] [place] [address] Shledon Canales MD [address] [facility] [address] [place] [address] 02/26/2025 3:10 PM CREDIT OFFICE MANAGER Office Visit [facility] Gastroenterology [place] [address] [facility] [address] [place] [address] Suzette Cody MD [address] [facility] [address] [place] [address] documented as of this encounter Procedures Procedure Name Priority Date/Time Associated Diagnosis Comments PATHOLOGY Routine 11/28/2007 9:24 AM CDT CBC WITH DIFFERENTIAL Routine 11/23/2007 12:25 PM CDT HEPATIC FUNCTION PANEL Routine 11/23/2007 12:25 PM CDT TYPE AND SCREEN Routine 11/23/2007 12:24 PM CDT documented in this encounter Results * PATHOLOGY (11/28/2007 9:24 AM CDT) FINAL REPORT [facility] [address] [place], [place] [address] Patient: DUYEN OROSCO : 1960 Procedure Date: 11/28/2007 Accession Date: 11/28/2007 Case No: [id number] Ordering Dr: MAYNOR ZALDIVAR Case types AW, BW, FW, NW and SH are performed by [facility], [place], [place] SURGICAL PATHOLOGY & NON-GYNECOLOGIC CYTOPATHOLOGY REPORT DIAGNOSIS GALLBLADDER, ENDOSCOPIC BIOPSY: - MINIMAL CHRONIC INFLAMMATION. Specimen Description: Gallbladder. Operative Procedure: Endoscopic cholecystectomy. Patient Information/Histor y/Diagnosis: Cholecystitis. Gross: Received in a single container labeled Duyen Orosco, gallbladder is a 6.8 x 3.7 x 2.8-cm intact gallbladder. The serosal surface is purple-gilbert, smooth and glistening. The lumen contains a viscous yellow bile. No stones are identified. The wall has a uniform thickness of 0.2 cm. The mucosal surface is red-hernandez and velvety. No mucosal lesions are identified. Dinkey Engine Mechanic sections are submitted in cassette A1. KLA/LKP 11.28.2007 02:16 pm Microscopic: The slide is labeled [id number] Duyen Orosco. Sections of the gallbladder show minimal chronic inflammation and a rare Rokitansky-Aschoff sinus. LUTHER/ABELINO 11.29.2007 11:32 am Staging Form: No. ELECTRONIC SIGNATURE FOR ITALO RODRIGUEZ MD- 11/29/07 01:24 pm INTERFACE SYSTEM 11/28/2007 9:24 AM CDT us Maynor Zaldivar MD PATHOLOGY/CYTOLOGY ORDERABLES Final Result INTERFACE SYSTEM Refer to clinic/hospital department * (ABNORMAL) CBC WITH DIFFERENTIAL (11/23/2007 12:25 PM CDT) HEMOGLOBIN 15.2(H) 11.8 - 14.8 g/dL [facility] RDW 13.3 11.5 - 14.5 % [facility] WBC 12.4(H) 4.0 - 9.8 K/uL [facility] MCH 32.8(H) 27.2 - 32.6 pg [facility] MPV 11.6 9.3 - 12.4 fL [facility] HEMATOCRIT 43.6 35.5 - 44.0 % [facility] RDW-STDEV 45.7 37.1 - 48.7 fL [facility] RBC 4.64 3.90 - 4.90 M/uL [facility] MCHC 34.9 31.5 - 35.5 % [facility] MCV 94.0 82.0 - 99.0 fL [facility] PLATELETS 273 140 - 350 K/uL [facility] LYMPHOCYTES 24 16 - 45 % [facility] LYMPHOCYTE ABSOLUTE 2.92 0.70 - 4.50 K/uL [facility] BASOPHILS 0 0 - 2 % [facility] BASOPHILS ABSOLUTE 0.03 0.00 - 0.20 K/uL [facility] MONOCYTES 5 3 - 13 % [facility] MONOCYTE ABSOLUTE 0.59 0.10 - 1.30 K/uL [facility] NEUTROPHILS 71(H) 45 - 70 % [facility] NEUTROPHIL ABSOLUTE 8.85(H) 1.90 - 7.00 K/uL [facility] EOSINOPHILS 0 0 - 7 % [facility] EOSINOPHIL ABSOLUTE 0.05 0.00 - 0.70 K/uL [facility] Blood specimen (specimen) 11/23/2007 12:25 PM CDT 11/23/2007 2:00 PM CDT Maynor Zaldivar MD HEMATOLOGY ORDERABLES Edited Performing Organization Address [facility] de Phone Number INTERFACE SYSTEM Refer to clinic/hospital department [facility] CLIA# [id number] [address] [place] [address] * (ABNORMAL) HEPATIC FUNCTION PANEL (11/23/2007 12:25 PM CDT) BILIRUBIN TOTAL 0.2 0.2 - 1.0 mg/dL [facility] TOTAL PROTEIN 7.5 6.3 - 8.6 g/dL [facility] BILIRUBIN DIRECT <0.1 0.0 - 0.3 mg/dL [facility] ALBUMIN 4.6 3.4 - 4.8 g/dL [facility] AST 18 12 - 32 U/L [facility] ALKALINE PHOSPHATASE 113(H) 35 - 104 U/L [facility] ALT 18 0 - 31 U/L [facility] Blood specimen (specimen) 11/23/2007 12:25 PM CDT 11/23/2007 2:00 PM CDT Maynor Zaldivar MD CHEMISTRY ORDERABLES Final Res ult Performing Organization Address [facility] de Phone Number INTERFACE SYSTEM Refer to clinic/hospital department [facility] CLIA# [id number] [address] [place] [address] * TYPE AND SCREEN (11/23/2007 12:24 PM CDT) HISTORY CHECK History Checked [facility] SPECIMEN LIFE 3 days from OR date [facility] ABO/RH TYPE A Positive [facility] ANTIBODY SCREEN Negative [facility] Blood specimen (specimen) 11/23/2007 12:24 PM CDT Maynor Zaldivar MD BLOOD BANK ORDERABLES Edited INTERFACE SYSTEM Refer to clinic/hospital department [facility] CLIA# [id number] [address] [place] [address] documented in this encounter Visit Diagnoses Diagnosis Calculus of gallbladder without mention of cholecystitis or obstruction documented in this encounter Additional Health Concerns Infection Onset Date Last Indicated Resolved Time R/O Respiratory 01/11/2023 01/11/2023 01/11/2023 7 :48 PM CREDIT OFFICE MANAGER R/O Respiratory 02/19/2024 02/19/2024 02/19/2024 1 1:21 AM CREDIT OFFICE MANAGER Influenza 02/19/2024 02/19/2024 02/26/2024 1:16 AM CREDIT OFFICE MANAGER R/O Respiratory 03/13/2024 03/13/2024 03/13/2024 4 :20 PM CREDIT OFFICE MANAGER Human Metapneumovirus 03/13/2024 03/13/20242024 1:16 AM CREDIT OFFICE MANAGER R/O C. diff 03/13/2024 03/13/2024 03/14/2024 8:00 PM CREDIT OFFICE MANAGER R/O C. diff 03/14/2024 03/14/2024 03/15/2024 6:17 PM CREDIT OFFICE MANAGER documented as of this encounter Care Teams Manager Market Relationship Specialty Start Date End Date Juventino Howe MD [address] [place] [address] PCP - General Internal Medicine 11/04/11 documented as of this encounter
--- OUTSIDE RECORDS SUMMARY | 2024-07-26 18:08 | XMS_ITS | Encounter Summary ---
Author Organization [facility] Address [address] [place] [address] Care Team Providers Care Network Security Analyst Name Role Phone Juventino Howe MD Primary Care Provider [phone] Encounter Details Date Type Department Care Team (Latest Contact Info) Description 10/12/2007 Outpatient Historical [facility] Lee, Sulema Sherman MD NO ADDRESS ON FILE Solitary Cyst of Breast Social History Tobacco Use Types Packs/Day Years Used Date Smoking Tobacco: Never Assessed Comments Unknown Sex and Gender Information Value Date Recorded Sex Assigned at Not on file Legal Sex Female 3:38 AM BUNK ASSEMBLER Gender Identity Not on file Sexual Orientation Not on file documented as of this encounter Plan of Treatment Upcoming Encounters Date Type Department Care Team (Late st Contact Info) Description 07/31/2024 5:00 PM CDT Appointment [facility] Therapy Services [place] [address] [facility] [address] [place] [address] Chandler Spivey PA [address] [place] [address] Maegan Duncan, Physical Therapist 08/02/2024 5:00 PM CDT Appointment [facility] Neuro Rehabilitation [place] [address] [place] [address] Jonathan Cortez MD [address] [facility] [address] [address] -x0 (Work) Sarah Estrada, CURTAIN FELLER BLINDSTITCH 08/09/2024 5:00 PM CDT Appointment [facility] [place] [address] [place] [address] Chandler Spivey PA [address] [facility] [address] [place] [address] Maegan Duncan, Physical Therapist 08/30/2024 3:30 PM CDT Office Visit [facility] Internal Medicine Medical [place] [facility] [address] [address] Juventino Howe MD [address] [place] [address] 10/31/2024 3:00 PM CDT Office Visit [facility] Pulmonology [facility] [address] [place] [address] Everett Cam MD [address] [place] [address] 12/28/2024 2:45 PM BUNK ASSEMBLER Office Visit [facility] Endocrinology [address] [place] [address] Sheldon Canales MD [address] [facility] [address] [place] [address] 02/26/2025 3:10 PM BUNK ASSEMBLER Office Visit [facility] Gastroenterology [facility] [address] [facility] [address] [address] [facility] [address] [place] [address] Suzette Cody MD [address] [place] [address] [place] [address] documented as of this encounter Visit Diagnoses Diagnosis Solitary cyst of breast documented in this encounter Additional Health Concerns Infection Onset Date Last Indicated Resolved Time R/O Respiratory 01/11/2023 01/11/2023 01/11/2023 7 :48 PM BUNK ASSEMBLER R/O Respiratory 02/19/2024 02/19/2024 02/19/2024 1 1:21 AM BUNK ASSEMBLER Influenza 02/19/2024 02/19/2024 02/26/2024 1:16 AM BUNK ASSEMBLER R/O Respiratory 03/13/2024 03/13/2024 03/13/2024 4 :20 PM BUNK ASSEMBLER Human Metapneumovirus 03/13/2024 03/13/20242024 1:16 AM BUNK ASSEMBLER R/O C. diff 03/13/2024 03/13/2024 03/14/2024 8:00 PM BUNK ASSEMBLER R/O C. diff 03/14/2024 03/14/2024 03/15/2024 6:17 PM BUNK ASSEMBLER documented as of this encounter Care Teams Network Security Analyst Relationship Specialty Start Date End Date Juventino Howe MD [address] [place] [address] PCP - General Internal Medicine 11/04/11 documented as of this encounter
--- OUTSIDE RECORDS SUMMARY | 2024-07-26 18:08 | XMS_ITS | Encounter Summary ---
Author Organization [facility] Address [address] [place] [address] Care Team Providers Care Child Protective Investigator Name Role Phone Juventino Howe MD Primary Care Provider [phone] Encounter Details Date Type Department Care Team (Late Contact Info) Description 09/30/2006 Inpatient Historical [facility] Jonathan Mantilla MD [address] [place] [address] Lynne Escobar MD [address] [place] [address] Other Specified Genital Prolapse (Primary Dx) Social History Tobacco Use Types Packs/Day Years Used Date Smoking Tobacco: Never Assessed Comments Unknown Sex and Gender Information Value Date Recorded Sex Assigned at Not on file Legal Sex Female 3:38 AM INSTITUTIONAL COOK Gender Identity Not on file Sexual Orientation Not on file documented as of this encounter Plan of Treatment Upcoming Encounters Date Type Department Care Team (Late Contact Info) Description 07/31/2024 5:00 PM CDT Appointment [facility] Therapy Services [place] [address] [facility] [address] [place] [address] Chandler Spivey PA [address] [place] [address] Maegan Duncan, Physical Therapist 08/02/2024 5:00 PM CDT Appointment [facility] [address] [place] [address] Jonathan Cortez MD [address] [address]x0 (Work) Sarah Estrada, VALUE STREAM COACH 08/09/2024 5:00 PM CDT Appointment [facility] [address] [facility] [address] [place] [address] Chandler Spivey PA [address] [facility] [address] [place] [address] Maegan Duncan, Physical Therapist 08/30/2024 3:30 PM CDT Office Visit [facility] Internal Medicine Medical [place] A [facility] [address] [address] Juventino Howe MD [address] [place] [address] 10/31/2024 3:00 PM CDT Office Visit [facility] Pulmonology [facility] [address] [place] [address] Everett Cam MD [address] [place] [address] 12/28/2024 2:45 PM INSTITUTIONAL COOK Office Visit [facility] Endocrinology [address] [facility] [facility] [address] [place] [address] Sheldon Canales MD [address] [facility] [address] [place] [address] 02/26/2025 3:10 PM INSTITUTIONAL COOK Office Visit [facility] Gastroenterology [place] [address] [facility] [address] [place] [address] Suzette Cody MD [address] [place] [address] [place] [address] documented as of this encounter Visit Diagnoses Diagnosis Other specified genital prolapse(618.89)- Primary Other specified genital prolapse documented in this encounter Additional Health Concerns Infection Onset Date Last Indicated Resolved Time R/O Respiratory 01/11/2023 01/11/2023 01/11/2023 7 :48 PM INSTITUTIONAL COOK R/O Respiratory 02/19/2024 02/19/2024 02/19/2024 1 1:21 AM INSTITUTIONAL COOK Influenza 02/19/2024 02/19/2024 02/26/2024 1:16 AM INSTITUTIONAL COOK R/O Respiratory 03/13/2024 03/13/2024 03/13/2024 4 :20 PM INSTITUTIONAL COOK Human Metapneumovirus 03/13/2024 03/13/20242024 1:16 AM INSTITUTIONAL COOK R/O C. diff 03/13/2024 03/13/2024 03/14/2024 8:00 PM INSTITUTIONAL COOK R/O C. diff 03/14/2024 03/14/2024 03/15/2024 6:17 PM INSTITUTIONAL COOK documented as of this encounter Care Teams Child Protective Investigator Relationship Specialty Start Date End Date Juventino Howe MD [address] [place] [address] PCP - General Internal Medicine 11/04/11 documented as of this encounter
--- OUTSIDE RECORDS SUMMARY | 2024-07-26 18:08 | XMS_ITS | Encounter Summary ---
Author Organization [facility] Address [address] [place] [address] Care Team Providers Care Roller Shop Utility Worker Name Role Phone Juventino Howe MD Primary Care Provider [phone] Encounter Details Date Type Department Care Team (Late st Contact Info) Description 09/07/2005 Outpatient Historical [facility] Urban Francis DO [address] [place] [address] Er, Authorized P NO ADDRESS ON FILE Abdominal Pain, Unspecified Site (Primary Dx) Social History Tobacco Use Types Packs/Day Years Used Date Smoking Tobacco: Never Assessed Comments Unknown Sex and Gender Information Value Date Recorded Sex Assigned at Not on file Legal Sex Female 3:38 AM ENGINEERING RESEARCH MANAGER Gender Identity Not on file Sexual Orientation Not on file documented as of this encounter Plan of Treatment Upcoming Encounters Date Type Department Care Team (Late Contact Info) Description 07/31/2024 5:00 PM CDT Appointment [facility] Therapy Services [place] [address] [facility] [address] [place] [address] Chandler Spivey PA [address] [facility] [address] [place] [address] Maegan Duncan, Physical Therapist 08/02/2024 5:00 PM CDT Appointment [facility] [address] [facility] [place] [address] Jonathan Cortez MD [address] [facility] [address] [address] -x0 (Work) Sarah Estrada, RYAN 08/09/2024 5:00 PM CDT Appointment [facility] [address] [facility] [address] [place] [address] Chandler Spivey PA [address] [facility] [address] [place] [address] Maegan Duncan, Physical Therapist 08/30/2024 3:30 PM CDT Office Visit [facility] Internal Medicine Medical [place] A [facility] [address] [facility] [address] [address] Juventino Howe MD [address] [facility] [address] [place] [address] 10/31/2024 3:00 PM CDT Office Visit [facility] Pulmonology [facility] [address] [facility] [address] [place] [address] Everett Cam MD [address] [facility] [address] [place] [address] 12/28/2024 2:45 PM ENGINEERING RESEARCH MANAGER Office Visit [facility] Endocrinology [address] [facility] [address] [place] [address] Sheldon Canales MD [address] [facility] [address] [place] [address] 02/26/2025 3:10 PM ENGINEERING RESEARCH MANAGER Office Visit [facility] Gastroenterology [facility] [address] [facility] [address] [place] [address] Suzette Cody MD [address] [facility] [place] [address] [place] [address] documented as of this encounter Procedures Procedure Name Priority Date/Time Associated Diagnosis Comments CBC WITH DIFFERENTIAL Routine 09/07/2005 11:10 PM CDT CBC WITH DIFFERENTIAL Routine 09/07/2005 11:10 PM CDT C-REACTIVE PROTEIN Routine 09/07/2005 11 :10 PM CDT documented in this encounter Results * (ABNORMAL) CBC WITH DIFFERENTIAL (09/07/2005 11:10 PM CDT) NEUTROPHILS 73(H) 45 - 70 % INTERFAC E SYSTEM LYMPHOCYTES 21 16 - 45 % INTERFAC E SYSTEM MONOCYTES 5 3 - 13 % INTERFACE SYSTEM EOSINOPHILS 1 0 - 7 % INTERFAC E SYSTEM BASOPHILS 0 0 - 2 % INTERFACE SYSTEM NEUTROPHIL ABSOLUTE 6.14 1.90 - 7.00 K/uL INTERFACE SYSTEM LYMPHOCYTE ABSOLUTE 1.76 0.70 - 4.50 K/uL INTERFACE SYSTEM MONOCYTE ABSOLUTE 0.44 0.10 - 1.30 K/uL INTERFACE SYSTEM EOSINOPHIL ABSOLUTE 0.05 0.00 - 0.70 K/uL INTERFACE SYSTEM BASOPHILS ABSOLUTE 0.01 0.00 - 0.20 K/uL INTERFACE SYSTEM 09/07/2005 11:1 0 PM CDT Urban Francis DO HEMATOLOGY ORDERABLES Final R esult INTERFACE SYSTEM Refer to clinic/hospital department * (ABNORMAL) CBC WITH DIFFERENTIAL (09/07/2005 11:10 PM CDT) WBC 8.4 4.0 - 9.8 K/uL INTERFACE SYSTEM RBC 4.64 3.90 - 4.90 M/uL INTERFACE SYSTEM HEMOGLOBIN 15.5(H) 11.8 - 14.8 g/dL INTERFACE SYSTEM HEMATOCRIT 43.1 35.5 - 44.0 % INTERFACE SYSTEM MCV 92.9 82.0 - 99.0 fL INTERFACE SYSTEM MCH 33.4(H) 27.2 - 32.6 pg INTERFACE SYSTEM MCHC 36.0(H) 31.5 - 35.5 % INTERFACE SYSTEM RDW 12.8 11.5 - 14.5 % INTERFACE SYSTEM RDW-STDEV 43.5 37.1 - 48.7 fL INTERFACE SYSTEM PLATELETS 213 140 - 350 K/uL INTERFACE SYSTEM MPV 10.7 9.3 - 12.4 fL INTERFACE SYSTEM 09/07/2005 11:1 0 PM CDT Urban Mcgovernichs DO HEMATOLOGY ORDERABLES Final R esult Performing Organization Address [facility] de Phone Number INTERFACE SYSTEM Refer to clinic/hospital department * (ABNORMAL) C-REACTIVE PROTEIN (09/07/2005 11:10 PM CDT) CRP 4.1(H) 0.0 - 0.8 mg/dL INTERFACE SYSTEM 09/07/2005 11:1 0 PM CDT Urban Francis DO CHEMISTRY ORDERABLES Final Re sult Performing Organization Address [facility] de Phone Number INTERFACE SYSTEM Refer to clinic/hospital department documented in this encounter Visit Diagnoses Diagnosis Abdominal pain, unspecified site- Primary documented in this encounter Additional Health Concerns Infection Onset Date Last Indicated Resolved Time R/O Respiratory 01/11/2023 01/11/2023 01/11/2023 7 :48 PM ENGINEERING RESEARCH MANAGER R/O Respiratory 02/19/2024 02/19/2024 02/19/2024 1 1:21 AM ENGINEERING RESEARCH MANAGER Influenza 02/19/2024 02/19/2024 02/26/2024 1:16 AM ENGINEERING RESEARCH MANAGER R/O Respiratory 03/13/2024 03/13/2024 03/13/2024 4 :20 PM ENGINEERING RESEARCH MANAGER Human Metapneumovirus 03/13/2024 03/13/20242024 1:16 AM ENGINEERING RESEARCH MANAGER R/O C. diff 03/13/2024 03/13/2024 03/14/2024 8:00 PM ENGINEERING RESEARCH MANAGER R/O C. diff 03/14/2024 03/14/2024 03/15/2024 6:17 PM ENGINEERING RESEARCH MANAGER documented as of this encounter Care Teams Roller Shop Utility Worker Relationship Specialty Start Date End Date Juventino Howe MD [address] [place] [address] PCP - General Internal Medicine 11/04/11 documented as of this encounter
--- OUTSIDE RECORDS SUMMARY | 2024-07-26 18:08 | XMS_ITS | Encounter Summary ---
Author Organization [facility] Address [address] [place] [address] Care Team Providers Care Welding Equipment Repairer Name Role Phone Juventino Howe MD Primary Care Provider [phone] Encounter Details Date Type Department Care Team (Late Contact Info) Description 10/26/2005 Outpatient Historical [facility] Internal Medicine [facility] [address] [facility] [address] [place] [address] Randal Clark MD [address] [place] [address] Social History Tobacco Use Types Packs/Day Years Used Date Smoking Tobacco: Never Assessed Comments Unknown Sex and Gender Information Value Date Recorded Sex Assigned at Not on file Legal Sex Female 3:38 AM PLATE MILL HAND Gender Identity Not on file Sexual Orientation Not on file documented as of this encounter Last Filed Vital Signs Vital Sign Reading Time Taken Comments Blood Pressure 120/80 10/26/2005 4:00 PM CDT Pulse 76 10/26/2005 4:00 PM CDT Temperature 36.2 C (97.2 F) 10/26/2005 4:00 PM CDT Respiratory Rate 20 10/26/2005 4:00 PM CDT Oxygen Saturation - - Inhaled Oxygen Concentration - - Weight 66.2 kg (146 lb) 10/26/2005 4:00 PM CDT Height 158.1 cm (5' 2.25) 10/26/2005 4:00 PM CD T Body Mass Index 26.49 10/26/2005 4:00 PM CDT documented in this encounter Plan of Treatment Upcoming Encounters Date Type Department Care Team (Late st Contact Info) Description 07/31/2024 5:00 PM CDT Appointment [facility] Therapy Services [place] [address] [address] Chandler Spivey PA [address] [facility] [address] [place] [address] Maegan Duncan, Physical Therapist 08/02/2024 5:00 PM CDT Appointment [facility] Neuro Rehabilitation [address] [place] [address] Jonathan Cortez MD [address] [facility] [address] [address] -x0 (Work) Sarah Estrada, PIGEON FANCIER 08/09/2024 5:00 PM CDT Appointment [facility] [address] [address] Chandler Spivey PA [address] [facility] [address] [place] [address] Maegan Duncan, Physical Therapist 08/30/2024 3:30 PM CDT Office Visit [facility] Internal Medicine Medical [place] [facility] [address] [facility] [address] [address] Juventino Howe MD [address] [facility] [address] [place] [address] 10/31/2024 3:00 PM CDT Office Visit [facility] Pulmonology [facility] [address] [place] [address] Everett Cam MD [address] [facility] [address] [place] [address] 12/28/2024 2:45 PM PLATE MILL HAND Office Visit [facility] Endocrinology [address] [facility] [address] [address] [place] [address] Sheldon Canales MD [address] [facility] [address] [place] [address] 02/26/2025 3:10 PM PLATE MILL HAND Office Visit [facility] Gastroenterology [facility] [address] [facility] [address] [place] [address] Suzette Cody MD [address] [facility] [address] [place] [address] documented as of this encounter Visit Diagnoses Not on filedocumented in this encounter Additional Health Concerns Infection Onset Date Last Indicated Resolved Time R/O Respiratory 01/11/2023 01/11/2023 01/11/2023 7 :48 PM PLATE MILL HAND R/O Respiratory 02/19/2024 02/19/2024 02/19/2024 1 1:21 AM PLATE MILL HAND Influenza 02/19/2024 02/19/2024 02/26/2024 1:16 AM PLATE MILL HAND R/O Respiratory 03/13/2024 03/13/2024 03/13/2024 4 :20 PM PLATE MILL HAND Human Metapneumovirus 03/13/2024 03/13/20242024 1:16 AM PLATE MILL HAND R/O C. diff 03/13/2024 03/13/2024 03/14/2024 8:00 PM PLATE MILL HAND R/O C. diff 03/14/2024 03/14/2024 03/15/2024 6:17 PM PLATE MILL HAND documented as of this encounter Care Teams Welding Equipment Repairer Relationship Specialty Start Date End Date Juventino Howe MD [address] [facility] [address] [place] [address] PCP - General Internal Medicine 11/04/11 documented as of this encounter
--- OUTSIDE RECORDS SUMMARY | 2024-07-26 18:08 | XMS_ITS | Encounter Summary ---
Author Organization [facility] Address [address] [place] [address] Care Team Providers Care Csr Retail Name Role Phone Juventino Howe MD Primary Care Provider [phone] Encounter Details Date Type Department Care Team (Latest Contact Info) Description 10/05/2007 Outpatient Historical [facility] Lee, Sulema Sherman MD NO ADDRESS ON FILE Abnormal Mammogram, Unspecified; Solitary Cyst of Breast Social History Tobacco Use Types Packs/Day Years Used Date Smoking Tobacco: Never Assessed Comments Unknown Sex and Gender Information Value Date Recorded Sex Assigned at Not on file Legal Sex Female 3:38 AM METABOLIC SPECIALIST Gender Identity Not on file Sexual Orientation Not on file documented as of this encounter Plan of Treatment Upcoming Encounters Date Type Department Care Team (Late st Contact Info) Description 07/31/2024 5:00 PM CDT Appointment [facility] Therapy Services [place] [id number] [facility] [address] [place] [address] Chandler Spivey PA [address] [place] [address] Maegan Duncan, Physical Therapist 08/02/2024 5:00 PM CDT Appointment [facility] Neuro Rehabilitation [address] [address] Jonathan Cortez MD [address] [facility] [address] [address] -x0 (Work) Sarah Estrada, SECONDARY SCHOOL REGISTRAR 08/09/2024 5:[address] [facility] [place] [address] [place] [address] [place] [address] Chandler Spivey PA [address] [facility] [address] [place] [address] Maegan Duncan, Physical Therapist 08/30/2024 3:30 PM CDT Office Visit [facility] Internal Medicine Medical [place] [address] [address] Juventino Howe MD [address] [facility] [address] [place] [address] 10/31/2024 3:00 PM CDT Office Visit [facility] Pulmonology [facility] [address] [facility] [address] [place] [address] Everett Cam MD [address] [facility] [address] [place] [address] 12/28/2024 2:45 PM METABOLIC SPECIALIST Office Visit [facility] Endocrinology [address] [facility] [address] [place] [address] Sheldon Canales MD [address] [facility] [address] [place] [address] 02/26/2025 3:10 PM METABOLIC SPECIALIST Office Visit [facility] Gastroenterology [place] [address] [place] [address] [place] [address] Suzette Cody MD [address] [place] [address] [place] [address] documented as of this encounter Procedures Procedure Name Priority Date/Time Associated Diagnosis Comments US BREAST UNI LEFT COMPLETE Timed Study 10/05/2007 11:46 AM CDT documented in this encounter Results * US BREAST UNILATERAL LEFT (10/05/2007 11:46 AM CDT) Anatomical Region Laterality Modality Breast Left Other 10/05/2007 11:4 6 AM CDT Narrative 10/06/2007 7:22 AM CDT [facility] [address] [facility] [place], [place] [address] Admit Date: 10/05/2007 DUYEN OROSCO Sex: F Admit Prov: SULEMA LEE Date: 1960 Primary Care Prov: CMRN: [id number] Room: [facility] SSN: [id number] IMAGING SERVICES Ordering Prov: SULEMA LEE Accession Number: [id number] Interpretation LEFT BREAST ULTRASOUND, 10/05/2007 History: The patient has a palpable abnormality in the left breast. This has been previously aspirated and demonstrated to be a cyst. The patient presents today for a left breast ultrasound. Technique: A left breast ultrasound was performed. Correlation is made with the patient's mammograms and ultrasound from [facility] dated March 2007 and February 2007. Findings: Multiple simple cysts are identified within the upper-outer quadrant of the left breast. The largest is at the approximate 2:00 position and measures 1.2 x 0.8 cm. Several other smaller simple cysts are identified. A cluster of cysts is identified at the 1:00 position of the left breast. At the 2:30 lateral position, a 4 mm nearly anechoic structure with internal echoes is identified. This is believed to represent a complicated cyst. It is recommended the patient return for a six-month followup ultrasound of this finding. No solid masses are identified within the left breast in the upper-outer quadrant. Overall Assessment: BI-RADS Category 3, probably benign findings. Recommendation: It is recommended the patient have an ultrasound of the left breast in 6 months for reevaluation of the probable complicated cyst at the 2:30 to 3:00 position far laterally. The patient is due for her annual mammograms in February 2008. Dictated by: CHELSIE SANTAMARIA Electronically signed by: CHELSIE SANTAMARIA 10/06/2007 07:22 Transcribed: 10/05/2007 14:39 DKT Procedure Note Chelsie Santamaria - 10/06/2007 [facility] [address] [place] [address] Admit Date: 10/05/2007 DUYEN OROSCO Sex: F Admit Prov: SULEMA LEE Date: 1960 Primary Care Prov: CMRN: [id number] Room: Lang SSN: [id number] IMAGING SERVICES Ordering Prov: SULEMA LEE Interpretation LEFT BREAST ULTRASOUND, 10/05/2007 History: The patient has a palpable abnormality in the left breast.This has been previously aspirated and demonstrated to be a cyst. Thepatient presents today for a left breast ultrasound. Technique: A left breast ultrasound was performed. Correlation ismade with the patient's mammograms and ultrasound from [facility] dated March 2007 and February 2007. Findings: Multiple simple cysts are identified within theupper-outer quadrant of the left breast. The largest is at the approximate 2:00 position and measures 1.2 x 0.8 cm. Several other smaller simplecysts are identified. A cluster of cysts is identified at the 1:00 position ofthe left breast. At the 2:30 lateral position, a 4 mm nearly anechoicstructure with internal echoes is identified. This is believed to represent a complicated cyst. It is recommended the patient return for asix-month followup ultrasound of this finding. No solid masses are identifiedwithin the left breast in the upper-outer quadrant. Overall Assessment: BI-RADS Category 3, probably benign findings. Recommendation: It is recommended the patient have an ultrasound ofthe left breast in 6 months for reevaluation of the probable complicatedcyst at the 2:30 to 3:00 position far laterally. The patient is due forher annual mammograms in February 2008. Dictated by: CHELSIE SANTAMARIA Electronically signed by: CHELSIE SANTAMARIA 10/06/2007 07:22 Transcribed: 10/05/2007 14:39 DKT Sulema Lee MD US ORDERABLES Final Result documented in this encounter Visit Diagnoses Diagnosis Abnormal mammogram, unspecified Solitary cyst of breast documented in this encounter Additional Health Concerns Infection Onset Date Last Indicated Resolved Time R/O Respiratory 01/11/2023 01/11/2023 01/11/2023 7 :48 PM METABOLIC SPECIALIST R/O Respiratory 02/19/2024 02/19/2024 02/19/2024 1 1:21 AM METABOLIC SPECIALIST Influenza 02/19/2024 02/19/2024 02/26/2024 1:16 AM METABOLIC SPECIALIST R/O Respiratory 03/13/2024 03/13/2024 03/13/2024 4 :20 PM METABOLIC SPECIALIST Human Metapneumovirus 03/13/2024 03/13/20242024 1:16 AM METABOLIC SPECIALIST R/O C. diff 03/13/2024 03/13/2024 03/14/2024 8:00 PM METABOLIC SPECIALIST R/O C. diff 03/14/2024 03/14/2024 03/15/2024 6:17 PM METABOLIC SPECIALIST documented as of this encounter Care Teams Csr Retail Relationship Specialty Start Date End Date Juventino Howe MD [address] [facility] [address] [place] [address] PCP - General Internal Medicine 11/04/11 documented as of this encounter
--- OUTSIDE RECORDS SUMMARY | 2024-07-26 18:08 | XMS_ITS | Encounter Summary ---
Author Organization [facility] Address [address] [place] [address] Care Team Providers Care Ict Support And Test Engineers Name Role Phone Juventino Howe MD Primary Care Provider [phone] Encounter Details Date Type Department Care Team (Late st Contact Info) Description 05/02/2007 Outpatient Historical HIS [facility] Lynne Navarro MD [address] [place] [address] Heartburn Social History Tobacco Use Types Packs/Day Years Used Date Smoking Tobacco: Never Assessed Comments Unknown Sex and Gender Information Value Date Recorded Sex Assigned at Not on file Legal Sex Female 3:38 AM MARRIAGE AND FAMILY TEACHER Gender Identity Not on file Sexual Orientation Not on file documented as of this encounter Plan of Treatment Upcoming Encounters Date Type Department Care Team (Late st Contact Info) Description 07/31/2024 5:00 PM CDT Appointment [facility] Therapy Services [address] [address] Chandler Spivey PA [address] [facility] [address] [place] [address] Maegan Duncan, Physical Therapist 08/02/2024 5:00 PM CDT Appointment [facility] Neuro Rehabilitation [place] [address] [facility] [place] [place] [address] Jonathan Cortez MD [address] [facility] [address] [address] -x0 (Work) Sarah Estrada, VALUE ADVISOR 08/09/2024 5:00 PM CDT Appointment [facility] [address] [facility] [address] [place] [address] Chandler Spivey PA [address] [facility] [address] [place] [address] Maegan Duncan, Physical Therapist 08/30/2024 3:30 PM CDT Office Visit [facility] Internal Medicine Medical [place] [facility] [address] [facility] [address] [address] Juventino Howe MD [address] [facility] [address] [place] [address] 10/31/2024 3:00 PM CDT Office Visit [facility] Pulmonology [facility] [address] [facility] [address] [place] [address] Everett Cam MD [address] [facility] [address] [place] [address] 12/28/2024 2:45 PM MARRIAGE AND FAMILY TEACHER Office Visit [facility] Endocrinology [address] [facility] [address] [place] [address] Sheldon Canales MD [address] [facility] [address] [place] [address] 02/26/2025 3:10 PM MARRIAGE AND FAMILY TEACHER Office Visit [facility] Gastroenterology [place] [address] [facility] [address] [address] [place] [address] Suzette Cody MD [address] [place] [address] [place] [address] documented as of this encounter Procedures Procedure Name Priority Date/Time Associated Diagnosis Comments GLIADIN ABS IGG/IGA Routine 05/02/2007 5 :01 PM CDT MISCELLANEOUS LAB TEST Routine 5:01 PM CDT TRANSGLUTAMINASE IGA ANTIBODY Routine 05/02/2007 5:01 PM CDT HELICOBACTER PYLORI IGM Routine 05/02/19 08 5:01 PM CDT HELICOBACTER PYLORI IGG Routine 05/02/19 08 5:01 PM CDT IGA Routine 05/02/2007 5:01 PM CDT documented in this encounter Results * TRANSGLUTAMINASE IGA ANTIBODY (05/02/2007 5:01 PM CDT) TRANSGLUTAMINASE IGA AB <3 <5 U/mL [facility] Comment: Reference range: <5 U/mL Negative 5-8 U/mL Equivocal >8 U/mL Positive Lab test performed by: [facility] [address] [place] [address] KHADIJAH HENDRICKSON MD Blood specimen (specimen) 05/02/2007 5:01 PM CDT 05/02/2007 5:16 PM CDT Lynne Escobar MD CHEMISTRY ORDERABLES Final Resu lt [facility] [address] [place], [place] [address] * MISCELLANEOUS LAB TEST (05/02/2007 5:01 PM CDT) SPECIMEN TYPE Blood [facility] TEST NAME H. PYLORI IGA ANTIBODY [facility] MISCELLANEOUS LAB TEST Name of Test: HELICOBACTER PYLORI IgA AB Test Result: <0.89 Index Reference Range: Negative: <0.89 Equivocal: 0.89-0.99 Positive: >=1.00 Test Performed By: [facility] Specimen of unknown material (specimen) 05/02/2007 5:01 PM CDT 05/02/2007 5:16 PM CDT Narrative [facility] - 05/05/2007 10:38 AM CDT Name of test: H pylori IgA (red top) us Lynne Escobar MD CHEMISTRY ORDERABLES Edited Performing Organization Address City/[facility]/ZIP Co de Phone Number [facility] [address] [place] [address] * (ABNORMAL) HELICOBACTER PYLORI IGM (05/02/2007 5:01 PM CDT) H. PYLORI IGM INDEX 1.3(H) <0.8 Index [facility] Comment: Reference Range: <0.8 Negative 0.8-0.9 Equivocal >0.9 Positive H. pylori serology may result in false positives, especially in isolated IgM H. pylori positive patients. A Urea Breath test or stool antigen test for H. pylori should be considered if clinically indicated. This test was developed and its performance characteristics have been determined by [facility] [place], [place]. It has not been cleared or approved by the U.S. Food and Drug Administration. The FDA has determined that such clearance or approval is not necessary. Performance characteristics refer to the analytical performance of the test. Lab test performed by: [facility] [address] [place], [place] KHADIJAH HENDRICKSON MD H. PYLORI IGM Positive( A) Negative [facility] Blood specimen (specimen) 05/02/2007 5:01 PM CDT 05/02/2007 5:16 PM CDT us Lynne Escobar MD CHEMISTRY ORDERABLES Final Resu lt Performing Organization Address City/[facility]/ZIP Co de Phone Number [facility] [address] [place] [address] * HELICOBACTER PYLORI IGG (05/02/2007 5:01 PM CDT) Pathologist [facility] H. PYLORI IGG <0.91 EIA Value [facility] Comment: REFERENCE RANGE: < 0.91 NEGATIVE: NO HELICOBACTER PYLORI IGG ANTIBODY DETECTED 0.91 - 1.09 EQUIVOCAL > 1.09 POSITIVE: HELICOBACTER PYLORI IGG ANTIBODY DETECTED A POSITIVE RESULT INDICATES THAT THE PATIENT HAS ANTIBODY TO H. PYLORI. IT DOES NOT DIFFERENTIATE BETWEEN AN ACTIVE OR PAST INFECTION. THE CLINICAL DIAGNOSIS MUST BE INTERPRETED IN CONJUNCTION WITH THE CLINICAL SIGNS AND SYMPTOMS OF THE PATIENT. Lab test performed by: [facility] [address] [place] [address] DION ROSEN MD Blood specimen (specimen) 05/02/2007 5:01 PM CDT 05/02/2007 5:16 PM CDT Lynne Escobar MD CHEMISTRY ORDERABLES COM Final Result Performing Organization Address [facility]/ZIP Co de Phone Number [facility] [address] [place] [address] * IGA (05/02/2007 5:01 PM CDT) Pathologist [facility] IGA 190.2 87.0 - 421.0 mg/dL [facility] Blood specimen (specimen) 05/02/2007 5:01 PM CDT 05/02/2007 9:49 PM CDT Lynne Escobar MD CHEMISTRY ORDERABLES Final Resu lt Performing Organization Address City/[facility]/ZIP Co de Phone Number [facility] [address] [place] [address] * GLIADIN ABS IGG/IGA (05/02/2007 5:01 PM CDT) Pathologist [facility] GLIADIN IGG AB <3 <11 U/mL [facility] Comment: Reference Range: <11 U/mL Negative 11-17 U/mL Equivocal >17 U/mL Positive GLIADIN IGA AB 4 <11 U/mL [facility] Comment: Reference Range: <11 U/mL Negative 11-17 U/mL Equivocal >17 U/mL Positive Lab test performed by: [employer] [facility] [facility] [address] [place], [place] KHADIJAH HENDRICKSON MD Blood specimen (specimen) 05/02/2007 5:01 PM CDT 05/02/2007 5:16 PM CDT us Lynne Escobar MD CHEMISTRY ORDERABLES Final Resu lt [facility] [address] [facility] [address] documented in this encounter Visit Diagnoses Diagnosis Heartburn documented in this encounter Additional Health Concerns Infection Onset Date Last Indicated Resolved Time R/O Respiratory 01/11/2023 01/11/2023 01/11/2023 7 :48 PM MARRIAGE AND FAMILY TEACHER R/O Respiratory 02/19/2024 02/19/2024 02/19/2024 1 1:21 AM MARRIAGE AND FAMILY TEACHER Influenza 02/19/2024 02/19/2024 02/26/2024 1:16 AM MARRIAGE AND FAMILY TEACHER R/O Respiratory 03/13/2024 03/13/2024 03/13/2024 4 :20 PM MARRIAGE AND FAMILY TEACHER Human Metapneumovirus 03/13/2024 03/13/20242024 1:16 AM MARRIAGE AND FAMILY TEACHER R/O C. diff 03/13/2024 03/13/2024 03/14/2024 8:00 PM MARRIAGE AND FAMILY TEACHER R/O C. diff 03/14/2024 03/14/2024 03/15/2024 6:17 PM MARRIAGE AND FAMILY TEACHER documented as of this encounter Care Teams Ict Support And Test Engineers Relationship Specialty Start Date End Date Juventino Howe MD [address] [place] [address] PCP - General Internal Medicine 11/04/11 documented as of this encounter
--- OUTSIDE RECORDS SUMMARY | 2024-07-26 18:08 | XMS_ITS | Encounter Summary ---
Author Organization [facility] Address [address] [place] [address] Care Team Providers Care Stem Frazer Name Role Phone Juventino Howe MD Primary Care Provider [phone] Encounter Details Date Type Department Care Team (Latest Contact Info) Description 01/02/2008 Outpatient Historical HIS [facility] Lynne Navarro MD [address] [place] [address] Esophageal Reflux Social History Tobacco Use Types Packs/Day Years Used Date Smoking Tobacco: Never Assessed Comments Unknown Sex and Gender Information Value Date Recorded Sex Assigned at Not on file Legal Sex Female 3:38 AM PUBLIC SERVICES ASSISTANT Gender Identity Not on file Sexual Orientation Not on file documented as of this encounter Plan of Treatment Upcoming Encounters Date Type Department Care Team (Late st Contact Info) Description 07/31/2024 5:00 PM CDT Appointment [facility] Therapy Services [address] [address] Chandler Spivey PA [address] [facility] [address] [place] [address] Maegan Duncan, Physical Therapist 08/02/2024 5:00 PM CDT Appointment [facility] Neuro Rehabilitation [facility] [address] [facility] [address] Jonathan Cortez MD [address] [facility] [address] [address] -x0 (Work) Sarah Estrada, LUMBER HANDLER 08/09/2024 5:00 PM CDT Appointment [facility] Services [place] [address] [facility] [address] [place] [address] Chandler Spivey PA [address] [facility] [address] [place] [address] Maegan Duncan, Physical Therapist 08/30/2024 3:30 PM CDT Office Visit [facility] Internal Medicine Medical [place] A [address] [facility] [address] [place] [address] Juventino Howe MD [address] [facility] [address] [place] [address] 10/31/2024 3:00 PM CDT Office Visit [facility] Pulmonology [facility] [address] [facility] [address] [place] [address] Everett Cam MD [address] [facility] [address] [place] [address] 12/28/2024 2:45 PM PUBLIC SERVICES ASSISTANT Office Visit [facility] Endocrinology [address] [facility] [address] [place] [address] Sheldon Canales MD [address] [facility] [address] [place] [address] 02/26/2025 3:10 PM PUBLIC SERVICES ASSISTANT Office Visit [facility] Gastroenterology [address] [facility] [address] [place] [address] Suzette Cody MD [address] [facility] [address] [place] [address] documented as of this encounter Procedures Procedure Name Priority Date/Time Associated Diagnosis Comments CBC WITH DIFFERENTIAL Routine 01/02/2008 11:29 AM PUBLIC SERVICES ASSISTANT VITAMIN D 25 HYDROXY Routine 01/02/2008 11:29 AM PUBLIC SERVICES ASSISTANT SEDIMENTATION RATE Routine 01/02/2008 11 :29 AM PUBLIC SERVICES ASSISTANT C-REACTIVE PROTEIN Routine 01/02/2008 11 :29 AM PUBLIC SERVICES ASSISTANT PHOSPHORUS Routine 01/02/2008 11:29 AM PUBLIC SERVICES ASSISTANT MAGNESIUM LEVEL Routine 01/02/2008 11:29 AM PUBLIC SERVICES ASSISTANT VITAMIN B12 LEVEL Routine 01/02/2008 11: 29 AM PUBLIC SERVICES ASSISTANT COMPREHENSIVE METABOLIC PANEL Routine 01/02/2008 11:29 AM PUBLIC SERVICES ASSISTANT documented in this encounter Results * (ABNORMAL) COMPREHENSIVE METABOLIC PANEL (01/02/2008 11:29 AM PUBLIC SERVICES ASSISTANT) CHLORIDE 101 96 - 108 mmol/L [facility] CREATININE 0.75 0.51 - 0.95 mg/dL [facility] ALT 35(H) 0 - 31 U/L [facility] SODIUM 139 135 - 145 mmol/L [facility] ALKALINE PHOSPHATASE 123(H) 35 - 104 U/L [facility] CO2 27 22 - 30 mmol/L [facility] BILIRUBIN TOTAL 0.3 0.2 - 1.0 mg/dL [facility] POTASSIUM 4.0 3.5 - 4.9 mmol/L [facility] TOTAL PROTEIN 7.4 6.3 - 8.6 g/dL [facility] GLUCOSE 87 65 - 99 mg/dL [facility] AST 29 12 - 32 U/L [facility] BUN 12 6 - 20 mg/dL [facility] CALCIUM 10.0 8.6 - 10.2 mg/dL [facility] ALBUMIN 4.5 3.4 - 4.8 g/dL [facility] GFR, >60 >=60 mL/min/1. [address] [facility] GFR >60 >=60 mL/min/1. [address] [facility] Comment: Modification of Diet in Renal Disease (MDRD) study formula. Estimated GFR rate interpretative information for both Americans and non- Americans is available on the [facility] Intranet at: [email or web address] Select: Lab Policies and Procedures Select: Reference Ranges - GFR Blood specimen (specimen) 01/02/2008 11:29 AM PUBLIC SERVICES ASSISTANT 01/02/2008 11:56 AM PUBLIC SERVICES ASSISTANT us Lynne Escobar MD CHEMISTRY ORDERABLES Edited Performing Organization Address [facility] de Phone Number INTERFACE SYSTEM Refer to clinic/hospital department [facility] CLIA# [id number] [address] [place] [address] * SEDIMENTATION RATE (01/02/2008 11:29 AM PUBLIC SERVICES ASSISTANT) ESR (SEDIMENTATION RATE) 14 0 - 20 mm/hr [facility] Blood specimen (specimen) 01/02/2008 11:29 AM PUBLIC SERVICES ASSISTANT 01/02/2008 11:56 AM PUBLIC SERVICES ASSISTANT us Lynne Escobar MD HEMATOLOGY ORDERABLES Final Res ult Performing Organization Address [facility] de Phone Number INTERFACE SYSTEM Refer to clinic/hospital department [facility] CLIA# [id number] [address] [place] [address] * VITAMIN D 25 HYDROXY (01/02/2008 11:29 AM PUBLIC SERVICES ASSISTANT) VITAMIN D, 25 OH, D3 21 ng/mL [facility] VITAMIN D, 25 OH, D2 <4 ng/mL [facility] Comment: 25-OHD3 indicates both endogenous production and supplementation. 25-OHD2 is an indicator of exogenous sources such as diet or supplementation. Therapy is based on measurement of Total 25-OHD, with levels <20 ng/mL indicative of Vitamin D deficiency while levels between 20 ng/mL and 30 ng/mL suggest insufficiency. Optimal levels are >30 ng/mL. Lab test performed by: [facility] [address] [place] [address] PERLITA ARNOLD MD VITAMIN D, 25 OH, TOTAL 21 20 - 100 ng/mL [facility] Blood specimen (specimen) 01/02/2008 11:29 AM PUBLIC SERVICES ASSISTANT 01/02/2008 11:56 AM PUBLIC SERVICES ASSISTANT Lynne Escobar MD CHEMISTRY ORDERABLES Final Resu lt Performing Organization Address [facility] Phone Number INTERFACE SYSTEM Refer to clinic/hospital department [facility] CLIA# [id number] [address] [place] [address] * VITAMIN B12 (01/02/2008 11:29 AM PUBLIC SERVICES ASSISTANT) VITAMIN B12 464 211 - 946 pg/mL [facility] Comment: It has been reported that between 5 to 10% of patients with values between 200 and 400 pg/mL may experience neuropsychiatric and hematologic abnormalities due to occult B12 deficiency. Less than 1% of patients with values above 400 pg/mL will have symptoms. Blood specimen (specimen) 01/02/2008 11:29 AM PUBLIC SERVICES ASSISTANT 01/02/2008 11:56 AM PUBLIC SERVICES ASSISTANT us Lynne Escobar MD CHEMISTRY ORDERABLES Final Resu lt Performing Organization Address [facility] de Phone Number INTERFACE SYSTEM Refer to clinic/hospital department [facility] CLIA# [id number] [address] [place] [address] * PHOSPHORUS (01/02/2008 11:29 AM PUBLIC SERVICES ASSISTANT) PHOSPHORUS 3.4 2.5 - 4.5 mg/dL [facility] Blood specimen (specimen) 01/02/2008 11:29 AM PUBLIC SERVICES ASSISTANT 01/02/2008 11:56 AM PUBLIC SERVICES ASSISTANT us Lynne Escobar MD CHEMISTRY ORDERABLES Final Resu lt Performing Organization Address [facility] Phone Number INTERFACE SYSTEM Refer to clinic/hospital department [facility] CLIA# [id number] [address] [place] [address] * MAGNESIUM LEVEL (01/02/2008 11:29 AM PUBLIC SERVICES ASSISTANT) MAGNESIUM 2.1 1.5 - 2.5 mg/dL [facility] Blood specimen (specimen) 01/02/2008 11:29 AM PUBLIC SERVICES ASSISTANT 01/02/2008 11:56 AM PUBLIC SERVICES ASSISTANT Result José Miguel Escobar MD CHEMISTRY ORDERABLES Final Resu lt Performing Organization Address [facility] Phone Number INTERFACE SYSTEM Refer to clinic/hospital department [facility] CLIA# [id number] [address] [place] [address] * C-REACTIVE PROTEIN (01/02/2008 11:29 AM PUBLIC SERVICES ASSISTANT) CRP <0.2 0.0 - 0.8 mg/dL [facility] Blood specimen (specimen) 01/02/2008 11:29 AM PUBLIC SERVICES ASSISTANT 01/02/2008 11:56 AM PUBLIC SERVICES ASSISTANT us Lynne Escobar MD CHEMISTRY ORDERABLES Final Resu lt Performing Organization Address City/[facility] de Phone Number INTERFACE SYSTEM Refer to clinic/hospital department [facility] CLIA# [id number] [address] [address] * (ABNORMAL) CBC WITH DIFFERENTIAL (01/02/2008 11:29 AM PUBLIC SERVICES ASSISTANT) PLATELETS 306 140 - 350 K/uL [facility] HEMOGLOBIN 15.0(H) 11.8 - 14.8 g/dL [facility] RDW 13.0 11.5 - 14.5 % [facility] WBC 9.9(H) 4.0 - 9.8 K/uL [facility] MCH 32.8(H) 27.2 - 32.[address] [facility] MPV 11.2 9.3 - 12.[address] [facility] HEMATOCRIT 43.2 35.5 - 44.0 % [facility] RDW-STDEV 44.7 37.1 - 48.[address] [facility] RBC 4.57 3.90 - 4.90 M/uL [facility] MCHC 34.7 31.5 - 35.5 % [facility] MCV 94.5 82.0 - 99.[address] [facility] EOSINOPHILS 4 0 - 7 % [facility] EOSINOPHIL ABSOLUTE 0.37 0.00 - 0.70 K/uL [facility] LYMPHOCYTES 32 16 - 45 % [facility] LYMPHOCYTE ABSOLUTE 3.21 0.70 - 4.50 K/uL [facility] BASOPHILS 1 0 - 2 % [facility] BASOPHILS ABSOLUTE 0.05 0.00 - 0.20 K/uL [facility] MONOCYTES 5 3 - 13 % [facility] MONOCYTE ABSOLUTE 0.53 0.10 - 1.30 K/uL [facility] NEUTROPHILS 58 45 - 70 % [facility] NEUTROPHIL ABSOLUTE 5.76 1.90 - 7.00 K/uL [facility] Blood specimen (specimen) 01/02/2008 11:29 AM PUBLIC SERVICES ASSISTANT 01/02/2008 11:56 AM PUBLIC SERVICES ASSISTANT us Lynne Escobar MD HEMATOLOGY ORDERABLES Edited INTERFACE SYSTEM Refer to clinic/hospital department [facility] CLIA# [id number] [address] [place] [address] documented in this encounter Visit Diagnoses Diagnosis Esophageal reflux documented in this encounter Additional Health Concerns Infection Onset Date Last Indicated Resolved Time R/O Respiratory 01/11/2023 01/11/2023 01/11/2023 7 :48 PM PUBLIC SERVICES ASSISTANT R/O Respiratory 02/19/2024 02/19/2024 02/19/2024 1 1:21 AM PUBLIC SERVICES ASSISTANT Influenza 02/19/2024 02/19/2024 02/26/2024 1:16 AM PUBLIC SERVICES ASSISTANT R/O Respiratory 03/13/2024 03/13/2024 03/13/2024 4 :20 PM PUBLIC SERVICES ASSISTANT Human Metapneumovirus 03/13/2024 03/13/20242024 1:16 AM PUBLIC SERVICES ASSISTANT R/O C. diff 03/13/2024 03/13/2024 03/14/2024 8:00 PM PUBLIC SERVICES ASSISTANT R/O C. diff 03/14/2024 03/14/2024 03/15/2024 6:17 PM PUBLIC SERVICES ASSISTANT documented as of this encounter Care Teams Stem Frazer Relationship Specialty Start Date End Date Juventino Howe MD [address] [place] [address] PCP - General Internal Medicine 11/04/11 documented as of this encounter
--- OUTSIDE RECORDS SUMMARY | 2024-07-26 18:08 | XMS_ITS | Encounter Summary ---
Author Organization [facility] Address [address] [place] [address] Care Team Providers Care Educational Coordinator Name Role Phone Juventino Howe MD Primary Care Provider [phone] Encounter Details Date Type Department Care Team (Late st Contact Info) Description 01/26/2007 Outpatient Historical HIS [facility] Lynne Escobar MD [address] [place] [address] Other Constipation Social History Tobacco Use Types Packs/Day Years Used Date Smoking Tobacco: Never Assessed Comments Unknown Sex and Gender Information Value Date Recorded Sex Assigned at Not on file Legal Sex Female 3:38 AM TELEVISION AUDIO ENGINEER Gender Identity Not on file Sexual Orientation Not on file documented as of this encounter Plan of Treatment Upcoming Encounters Date Type Department Care Team (Late st Contact Info) Description 07/31/2024 5:00 PM CDT Appointment [facility] Therapy [address] [address] Chandler Spivey PA [address] [place] [address] Maegan Duncan, Physical Therapist 08/02/2024 5:00 PM CDT Appointment [facility] Neuro Rehabilitation [facility] [address] [facility] [place] [address] Jonathan Cortez MD [address] [facility] [address] [address] -x0 (Work) Sarah Estrada, RYAN 08/09/2024 5:00 PM CDT Appointment [facility] Services [place] [address] [facility] [address] [place] [address] Chandler Spivey PA [address] [facility] [address] [place] [address] Maegan Duncan, Physical Therapist 08/30/2024 3:30 PM CDT Office Visit [facility] Internal Medicine Medical [place] [facility] [address] [facility] [address] [address] Juventino Howe MD [address] [facility] [address] [place] [address] 10/31/2024 3:00 PM CDT Office Visit [facility] Pulmonology [facility] [address] [facility] [address] [place] [address] Everett Cam MD [address] [address] [place] [address] 12/28/2024 2:45 PM TELEVISION AUDIO ENGINEER Office Visit [facility] Endocrinology [address] [facility] [address] [place] [address] Sheldon Canales MD [address] [facility] [address] [place] [address] 02/26/2025 3:10 PM TELEVISION AUDIO ENGINEER Office Visit [facility] Gastroenterology [address] [facility] [address] [place] [address] Suzette Cody MD [address] [facility] [address] [place] [address] documented as of this encounter Visit Diagnoses Diagnosis Other constipation documented in this encounter Additional Health Concerns Infection Onset Date Last Indicated Resolved Time R/O Respiratory 01/11/2023 01/11/2023 01/11/2023 7 :48 PM TELEVISION AUDIO ENGINEER R/O Respiratory 02/19/2024 02/19/2024 02/19/2024 1 1:21 AM TELEVISION AUDIO ENGINEER Influenza 02/19/2024 02/19/2024 02/26/2024 1:16 AM TELEVISION AUDIO ENGINEER R/O Respiratory 03/13/2024 03/13/2024 03/13/2024 4 :20 PM TELEVISION AUDIO ENGINEER Human Metapneumovirus 03/13/2024 03/13/20242024 1:16 AM TELEVISION AUDIO ENGINEER R/O C. diff 03/13/2024 03/13/2024 03/14/2024 8:00 PM TELEVISION AUDIO ENGINEER R/O C. diff 03/14/2024 03/14/2024 03/15/2024 6:17 PM TELEVISION AUDIO ENGINEER documented as of this encounter Care Teams Educational Coordinator Relationship Specialty Start Date End Date Juventino Howe MD [address] [facility] [address] [place] [address] PCP - General Internal Medicine 11/04/11 documented as of this encounter
--- OUTSIDE RECORDS SUMMARY | 2024-07-26 18:08 | XMS_ITS | Encounter Summary ---
Author Organization [facility] Address [address] [place] [address] Care Team Providers Care Belt And Link Shop Supervisor Name Role Phone Juventino Howe MD Primary Care Provider [phone] Encounter Details Date Type Department Care Team (Late st Contact Info) Description 03/31/2004 Outpatient Historical [facility] Aleksandar Al MD [address] [place] [address] Er, Authorized P NO ADDRESS ON FILE OTHR SPEC COMPLIC OF PROCEDURE NEC (Primary Dx) Social History Tobacco Use Types Packs/Day Years Used Date Smoking Tobacco: Never Assessed Comments Unknown Sex and Gender Information Value Date Recorded Sex Assigned at Not on file Legal Sex Female 3:38 AM MARK[employer] Gender Identity Not on file Sexual Orientation Not on file documented as of this encounter Plan of Treatment Upcoming Encounters Date Type Department Care Team (Late Contact Info) Description 07/31/2024 5:00 PM CDT Appointment [facility] Therapy Services [address] [facility] [address] [place] [address] Chandler Spivey PA [address] [facility] [address] [place] [address] Maegan Duncan, Physical Therapist 08/02/2024 5:00 PM CDT Appointment [facility] Neuro Rehabilitation [facility] [address] [facility] [place] [address] Jonathan Cortez MD [address] [facility] [address] [address] -x0 (Work) Sarah Estrada, RYAN 08/09/2024 5:00 PM CDT Appointment [facility] [address] [place] [address] Chandler Spivey PA [address] [facility] [address] [place] [address] Maegan Duncan, Physical Therapist 08/30/2024 3:30 PM CDT Office Visit [facility] Internal Medicine Medical [place] A [facility] [address] [place] [address] Juventino Howe MD [address] [facility] [address] [place] [address] 10/31/2024 3:00 PM CDT Office Visit [facility] Pulmonology [facility] [address] [facility] [address] [place] [address] Everett Cam MD [address] [facility] [address] [place] [address] 12/28/2024 2:45 PM [employer] Office Visit [facility] Endocrinology [address] [facility] [address] [place] [address] Sheldon Canales MD [address] [facility] [address] [place] [address] 02/26/2025 3:10 PM [employer] Office Visit [facility] Gastroenterology [facility] [address] [address] [place] [address] Suzette Cody MD [address] [facility] [address] [place] [address] documented as of this encounter Procedures Procedure Name Priority Date/Time Associated Diagnosis Comments ED HOLD Routine 04/01/2004 1:17 AM [employer] CBC WITH DIFFERENTIAL Routine 04/01/2004 1:16 AM [employer] CBC WITH DIFFERENTIAL Routine 04/01/2004 1:16 AM [employer] URINALYSIS W/REFLEX MICROSCOPIC Routine 04/01/2004 1:16 AM [employer] C-REACTIVE PROTEIN Routine 04/01/2004 1: 16 AM [employer] documented in this encounter Results * ED HOLD (04/01/2004 1:17 AM [employer]) SPECIMEN HOLD, BLOOD 7 days INTERFACE SYSTEM 04/01/2004 1:17 AM [employer] Mychal Beatrize DO CHEMISTRY ORDERABLES Final R esult INTERFACE SYSTEM Refer to clinic/hospital department * URINALYSIS (04/01/2004 1:16 AM [employer]) COLOR UA Yellow INTERFACE SYSTEM CLARITY UA Clear Clear INTERFACE SYSTEM SPECIFIC GRAVITY UA 1.005 1.001 - 1.035 INTERFACE SYSTEM PH UA 7.0 5.0 - 8.0 INTERFACE SYSTEM LEUKOCYTE ESTERASE UA Negative Negative INTERFACE SYSTEM NITRITE UA Negative Negative INTERFACE SYSTEM PROTEIN UA Negative Negative INTERFACE SYSTEM GLUCOSE UA Negative Negative INTERFACE SYSTEM KETONES UA Negative Negative INTERFACE SYSTEM UROBILINOGEN UA <1 <1 EU INTE RFACE SYSTEM BILIRUBIN UA Negative Negative INTERFA CE SYSTEM BLOOD UA Negative Negative INTERFACE SYSTEM 04/01/2004 1:16 AM [employer] Mychal Tambone DO URINE ORDERABLES Final Resul t Performing Organization Address City/[facility]/ZIP Co de Phone Number INTERFACE SYSTEM Refer to clinic/hospital department * CBC WITH DIFFERENTIAL (04/01/2004 1:16 AM [employer]) NEUTROPHILS 69 45 - 70 % INTERFAC E SYSTEM LYMPHOCYTES 22 16 - 45 % INTERFAC E SYSTEM MONOCYTES 6 3 - 13 % INTERFACE SYSTEM EOSINOPHILS 2 0 - 7 % INTERFAC E SYSTEM BASOPHILS 1 0 - 2 % INTERFACE SYSTEM NEUTROPHIL ABSOLUTE 5.97 1.90 - 7.00 K/uL INTERFACE SYSTEM LYMPHOCYTE ABSOLUTE 1.90 0.70 - 4.50 K/uL INTERFACE SYSTEM MONOCYTE ABSOLUTE 0.54 0.10 - 1.30 K/uL INTERFACE SYSTEM EOSINOPHIL ABSOLUTE 0.15 0.00 - 0.70 K/uL INTERFACE SYSTEM BASOPHILS ABSOLUTE 0.04 0.00 - 0.20 K/uL INTERFACE SYSTEM 04/01/2004 1:16 AM [employer] [facility] ORDERABLES Final Result Performing Organization Address [facility] de Phone Number INTERFACE SYSTEM Refer to clinic/hospital department * (ABNORMAL) CBC WITH DIFFERENTIAL (04/01/2004 1:16 AM [employer]) WBC 8.6 4.0 - 9.8 K/uL INTERFACE SYSTEM RBC 4.25 3.90 - 4.90 M/uL INTERFACE SYSTEM HEMOGLOBIN 13.9 11.8 - 14.8 g/dL INTERFACE SYSTEM HEMATOCRIT 41.0 35.5 - 44.0 % INTERFACE SYSTEM MCV 96.5 82.0 - 99.0 fL INTERFACE SYSTEM MCH 32.7(H) 27.2 - 32.6 pg INTERFACE SYSTEM MCHC 33.9 31.5 - 35.5 % INTERFACE SYSTEM RDW 12.9 11.5 - 14.5 % INTERFACE SYSTEM RDW-STDEV 45.0 37.1 - 48.7 fL INTERFACE SYSTEM PLATELETS 281 140 - 350 K/uL INTERFACE SYSTEM MPV 10.8 9.3 - 12.4 fL INTERFACE SYSTEM 04/01/2004 1:16 AM [employer] [facility] HEMATOLOGY ORDERABLES Final Result Performing Organization Address City[facility] de Phone Number INTERFACE SYSTEM Refer to clinic/hospital department * (ABNORMAL) C-REACTIVE PROTEIN (04/01/2004 1:16 AM [employer]) CRP 1.2(H) 0.0 - 0.8 mg/dL INTERFACE SYSTEM 04/01/2004 1:16 AM [employer] us Mychal Talley DO CHEMISTRY ORDERABLES Final R esult INTERFACE SYSTEM Refer to clinic/hospital department documented in this encounter Visit Diagnoses Diagnosis Other specified complications- Primary documented in this encounter Additional Health Concerns Infection Onset Date Last Indicated Resolved Time R/O Respiratory 01/11/2023 01/11/2023 01/11/2023 7 :48 PM [employer] R/O Respiratory 02/19/2024 02/19/2024 02/19/2024 1 1:21 AM [employer] Influenza 02/19/2024 02/19/2024 02/26/2024 1:16 AM [employer] R/O Respiratory 03/13/2024 03/13/2024 03/13/2024 4 :20 PM [employer] Human Metapneumovirus 03/13/2024 03/13/20242024 1:16 AM [employer] R/O C. diff 03/13/2024 03/13/2024 03/14/2024 8:00 PM [employer] R/O C. diff 03/14/2024 03/14/2024 03/15/2024 6:17 PM [employer] documented as of this encounter Care Teams Belt And Link Shop Supervisor Relationship Specialty Start Date End Date Juventino Howe MD [address] [facility] [address] [place] [address] PCP - General Internal Medicine 11/04/11 documented as of this encounter
--- OUTSIDE RECORDS SUMMARY | 2024-07-26 18:08 | XMS_ITS | Encounter Summary ---
Author Organization [facility] Address [address] [place] [address] Care Team Providers Care Diet Technician Registered Name Role Phone Juventino Howe MD Primary Care Provider [phone] Encounter Details Date Type Department Care Team (Late st Contact Info) Description 01/05/2008 Outpatient Historical [facility], Ehsan Alonzo MD NO ADDRESS ON FILE Social History Tobacco Use Types Packs/Day Years Used Date Smoking Tobacco: Never Assessed Comments Unknown Sex and Gender Information Value Date Recorded Sex Assigned at Not on file Legal Sex Female 3:38 AM MEAT SELECTOR Gender Identity Not on file Sexual Orientation Not on file documented as of this encounter Plan of Treatment Upcoming Encounters Date Type Department Care Team (Late st Contact Info) Description 07/31/2024 5:00 PM CDT [facility]ment [facility] [address] [phone] Chandler Spivey PA [address] [place] [address] Maegan Duncan, Physical Therapist 08/02/2024 5:00 PM CDT Appointment [facility] Neuro Rehabilitation [address] [place] [address] Jonathan Cortez MD [address] [facility] [address] [address] -x0 (Work) Sarah Estrada, RETAIL MERCHANDISING COORDINATOR 08/09/2024 5:00 PM CDT Appointment [facility] [place] [address] [place] [address] Chandler Spivey PA [address] [facility] [address] [place] [address] Maegan Duncan, Physical Therapist 08/30/2024 3:30 PM CDT Office Visit [facility] Internal Medicine Medical [place] A [facility] [address] [facility] [address] [address] Juventino Howe MD [address] [facility] [address] [place] [address] 10/31/2024 3:00 PM CDT Office Visit [facility] Pulmonology [facility] [address] [facility] [address] [place] [address] Everett Cam MD [address] [place] [address] 12/28/2024 2:45 PM MEAT SELECTOR Office Visit [facility] Endocrinology [address] [facility] [address] [place] [address] Sheldon Canales MD [address] [facility] [address] [place] [address] 02/26/2025 3:10 PM MEAT SELECTOR Office Visit [facility] Gastroenterology [facility] [address] [facility] [address] [place] [address] Suzette Cody MD [address] [facility] [address] [place] [address] documented as of this encounter Visit Diagnoses Not on filedocumented in this encounter Additional Health Concerns Infection Onset Date Last Indicated Resolved Time R/O Respiratory 01/11/2023 01/11/2023 01/11/2023 7 :48 PM MEAT SELECTOR R/O Respiratory 02/19/2024 02/19/2024 02/19/2024 1 1:21 AM MEAT SELECTOR Influenza 02/19/2024 02/19/2024 02/26/2024 1:16 AM MEAT SELECTOR R/O Respiratory 03/13/2024 03/13/2024 03/13/2024 4 :20 PM MEAT SELECTOR Human Metapneumovirus 03/13/2024 03/13/20242024 1:16 AM MEAT SELECTOR R/O C. diff 03/13/2024 03/13/2024 03/14/2024 8:00 PM MEAT SELECTOR R/O C. diff 03/14/2024 03/14/2024 03/15/2024 6:17 PM MEAT SELECTOR documented as of this encounter Care Teams Diet Technician Registered Relationship Specialty Start Date End Date Juventino Howe MD [address] [facility] [address] [place] [address] PCP - General Internal Medicine 11/04/11 documented as of this encounter
--- OUTSIDE RECORDS SUMMARY | 2024-07-26 18:08 | XMS_ITS | Encounter Summary ---
Author Organization [facility] Address [address] [place] [address] Care Team Providers Care Rag Grader Name Role Phone Juventino Howe MD Primary Care Provider [phone] Encounter Details Date Type Department Care Team (Latest Contact Info) Description 09/29/2007 Outpatient Historical [facility] Lynne Navarro MD [address] [place] [address] Abdominal Pain, Generalized Social History Tobacco Use Types Packs/Day Years Used Date Smoking Tobacco: Never Assessed Comments Unknown Sex and Gender Information Value Date Recorded Sex Assigned at Not on file Legal Sex Female 3:38 AM PHYSICIST [employer] Gender Identity Not on file Sexual Orientation Not on file documented as of this encounter Plan of Treatment Upcoming Encounters Date Type Department Care Team (Late st Contact Info) Description 07/31/2024 5:00 PM CDT Appointment [facility] Therapy Services [address] [place] [address] Chandler Spivey PA [address] [facility] [address] [place] [address] Maegan Duncan, Physical Therapist 08/02/2024 5:00 PM CDT Appointment [facility] Neuro Rehabilitation [place] [address] [place] [address] Jonathan Cortez MD [address] [facility] [address] [address] -x0 (Work) Sarah Estrada, MANAGER ACADEMIC 08/09/2024 5:00 PM CDT Appointment [facility] [address] [facility] [address] [place] [address] Chandler Spivey PA [address] [facility] [address] [place] [address] Maegan Duncan, Physical Therapist 08/30/2024 3:30 PM CDT Office Visit [facility] Internal Medicine Medical [place] A [address] [facility] [address] [address] Juventino Howe MD [address] [facility] [address] [place] [address] 10/31/2024 3:00 PM CDT Office Visit [facility] Pulmonology [facility] [address] [facility] [address] [place] [address] Everett Cam MD [address] [facility] [address] [place] [address] 12/28/2024 2:45 PM PHYSICIST [employer] Office Visit [facility] Endocrinology [address] [facility] [address] [place] [address] Sheldon Canales MD [address] [facility] [address] [place] [address] 02/26/2025 3:10 PM PHYSICIST [employer] Office Visit [facility] Gastroenterology [place] [address] [place] [address] Suzette Cody MD [address] [facility] [address] [place] [address] documented as of this encounter Procedures Procedure Name Priority Date/Time Associated Diagnosis Comments C-REACTIVE PROTEIN Routine 09/29/2007 2: 11 PM CDT LIPASE Routine 09/29/2007 2:11 PM CDT HEPATIC FUNCTION PANEL Routine 09/29/2007 2:11 PM CDT documented in this encounter Results * LIPASE (09/29/2007 2:11 PM CDT) Pathologist [facility] LIPASE 41 13 - 60 U/L [facility] Blood specimen (specimen) 09/29/2007 2:11 PM CDT 09/29/2007 2:29 PM CDT us Lynne Escobar MD CHEMISTRY ORDERABLES Final Resu lt Performing Organization Address [facility] Phone Number INTERFACE SYSTEM Refer to clinic/hospital department [facility] CLIA# [id number] [address] [place] [address] * C-REACTIVE PROTEIN (09/29/2007 2:11 PM CDT) [facility] CRP <0.2 0.0 - 0.8 mg/dL [facility] Blood specimen (specimen) 09/29/2007 2:11 PM CDT 09/29/2007 2:29 PM CDT us Lynne Escobar MD CHEMISTRY ORDERABLES Final Resu lt Performing Organization Address [facility] Phone Number INTERFACE SYSTEM Refer to clinic/hospital department [facility] CLIA# [id number] [address] [place] [address] * (ABNORMAL) HEPATIC FUNCTION PANEL (09/29/2007 2:11 PM CDT) [facility] TOTAL PROTEIN 7.6 6.3 - 8.6 g/dL [facility] BILIRUBIN DIRECT 0.1 0.0 - 0.3 mg/dL [facility] AST 25 12 - 32 U/L [facility] ALBUMIN 4.6 3.4 - 4.8 g/dL [facility] ALT 28 0 - 31 U/L [facility] BILIRUBIN TOTAL 0.4 0.2 - 1.0 mg/dL [facility] ALKALINE PHOSPHATASE 125(H) 35 - 104 U/L [facility] Blood specimen (specimen) 09/29/2007 2:11 PM CDT 09/29/2007 2:29 PM CDT Narrative INTERFACE SYSTEM - 09/29/2007 4:57 PM CDT results faxed 09/29/07 4:57 PM dl [phone] Lynne Escobar MD CHEMISTRY ORDERABLES Edited INTERFACE SYSTEM Refer to clinic/hospital department [facility] CLIA# [id number] [address] [place] [address] documented in this encounter Visit Diagnoses Diagnosis Abdominal pain, generalized documented in this encounter Additional Health Concerns Infection Onset Date Last Indicated Resolved Time R/O Respiratory 01/11/2023 01/11/2023 01/11/2023 7 :48 PM PHYSICIST [employer] R/O Respiratory 02/19/2024 02/19/2024 02/19/2024 1 1:21 AM PHYSICIST [employer] Influenza 02/19/2024 02/19/2024 02/26/2024 1:16 AM PHYSICIST [employer] R/O Respiratory 03/13/2024 03/13/2024 03/13/2024 4 :20 PM PHYSICIST [employer] Human Metapneumovirus 03/13/2024 03/13/20242024 1:16 AM PHYSICIST [employer] R/O C. diff 03/13/2024 03/13/2024 03/14/2024 8:00 PM PHYSICIST [employer] R/O C. diff 03/14/2024 03/14/2024 03/15/2024 6:17 PM PHYSICIST [employer] documented as of this encounter Care Teams Rag Grader Relationship Specialty Start Date End Date Bhutto, Juventino, MD [address] [facility] [address] [place] [address] PCP - General Internal Medicine 11/04/11 documented as of this encounter
--- OUTSIDE RECORDS SUMMARY | 2024-07-26 18:08 | XMS_ITS | Encounter Summary ---
Author Organization [facility] Address [address] [place] [address] Care Team Providers Care Sharepoint Admin Name Role Phone Juventino Howe MD Primary Care Provider [phone] Encounter Details Date Type Department Care Team (Late st Contact Info) Description 08/13/2005 Orders Only [facility] Diabetic [facility] [address] [place] [address]. 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 MEDICATIONS: Medication list current.pt is taking b-12 injections q month CHIEF COMPLAINT new pt f/u er constipation HISTORY: HISTORY: 564.00-CONSTIPATION The patient's constipation symptoms are unchanged. There are no complaints of abdominal pain, no complaints hematochezia, no complaints of melena. The patient relates good tolerance to the medication that is taken on an as needed basis. No recent laboratory work done. The patient is being seen by a boiler house supervisor.the pt notes hx of chronic constipation and the pt notes this has been going off and on for the last few yrs. the pt notes this started with surgery for endometriosis and the pt notes since then bouts with abd pains and with constipation. the pt was recently in the hospital with constipation and abd pains. the pt had a normal ct of the abdomen and normal colonoscopy. the pt notes some days are better then others and the pt is on miralax currently. the pt notes she is due to follow up with gi in the next wk. 477.9-RHINITIS ALLERGIC UNSPECIFIED The allergic rhinitis has not changed and frequent symptoms have been noted since the last visit. The patient has coryza, has rhinorrhea, denies sneezing, denies watery eye. No complications noted from the medication presently being used. No recent laboratory work done.the pt notes hx of chronic nasal problems and the pt notes hx of allergy shots but these were stopped because they did not work for the pt. the pt notes that she is currently on saline nose spray and this only helps a little bit. 300.00-ANXIETY The condition has not changed. The patient's symptoms of feeling overwhelmed have not changed, anxiety has not changed, symptoms of excessive worry have not changed, denies muscle tension, denies restlessness, denies recurrent nonsensical thoughts, denies compulsions, denies distractibility, does not display flight of ideas, denies being more talkative, denies risky behaviors, doesnot display grandiosity. The patient relates good tolerance to the medication that is taken on an as needed basis. No recent laboratory work done.the pt notes hx of anxiety and the pt notes she has had this for some time. the pt notes she has been on meds like paxil and prozac but the pt notes these made her more anxious. the pt notes that she is currently using xanax on a prn basis. the pt notesthat this seems to help her anxiety. the pt notes that she uses this on an as needed basis. CURRENT PROBLEM LIST: 564.00 CONSTIPATION CURRENT MEDICATION LIST: VIVELLE-DOT TRANSDERMAL PATCH BIWEEKLY 0.075 MG/24HR, 1 every 3 days MIRALAX ORAL POWDER, prn XANAX ORAL TABLET 0.25 MG, prn CURRENT ALLERGY LIST: ASA CECLOR FLOXIN LEVAQUIN NOVACAINE PCN SULFA ROS: GENERAL: Normal activity and energy level, no change in appetite. No major weight gain or loss. No malaise, chills, fever, diaphoresis. ALLERGIC/IMMUNOLOGIC: No hay fever or history of environmental allergies. No chronic problems with immunity. EYES: No vision changes or diplopia. ENT: No hearing loss, epistaxis, hoarseness or dysphagia. No sinus congestion. ENDOCRINE: No heat or cold intolerance, no excessive thirst. CARDIAC: No chest pain, palpitations, orthopnea, dyspnea on exertion, or paroxysmal nocturnal dyspnea. RESPIRATORY: No dyspnea, cough, hemoptysis or wheezing. SKIN/BREAST/CHEST: No rashes or non-healing lesions. No breast symptoms noted. HEMATOLOGIC/LYMPHATIC: No anemia, easy bruising, bleeding or swollen nodes. : No frequency, urgency, hematuria or dysuria. GI: See HISTORY OF PRESENT ILLNESS. NEUROLOGIC: No weakness, dizziness, loss of consciousness, transient ischemic symptoms, or seizures. MUSCULOSKELETAL: No muscle or joint pain, weakness, swelling or inflammation. No restriction of motion, no atrophy or backache. PSYCHIATRIC: No increased nervousness, mood changes or depression. Coping well. PAST MEDICAL HISTORY: MEDICAL: constipation,rhinitis SURGICAL: Hysterectomy.adhesiolysis,urethral dilatation ALLERGIES/ADVERSE REACTIONS: Penicillins, Orthoquinones, Cephalosporins, sulfa drugs, aspirin.novicane FAMILY HISTORY: FATHER: The father is living. Illnesses: Cancer, hypertension, hypercholesterolemia.skin MOTHER: The mother is . Illnesses: Cancer of the liver, cancer of the lung, cancer of the brain. SOCIAL HISTORY: MARITAL HISTORY: . TOBACCO USE: Currently smokes 1/2 PPD. ALCOHOL: Drinks a moderate amount of alcoholic beverages. PHYSICAL EXAMINATION: CONSTITUTIONAL: GENERAL APPEARANCE: Healthy appearing patient in no distress. EYES: CONJUNCTIVAE/LIDS: Conjunctivae and lids appear normal. PUPILS: Pupils equal and normally reactive to light and accommodation. EARS, NOSE, MOUTH AND THROAT: EXTERNAL/EARS AND NOSE: Overall appearance normal with no scars, lesions or masses. EARS: Tympanic membranes shiny without retraction. Canals unremarkable. Hearing grossly normal. NOSE (AND SINUS): No abnormality of the nose or sinuses is noted. ORAL: Inspection of gums, lips, palate, and teeth normal. No scars, lesions, or masses. Oral mucosaunremarkable with non-inflamed posterior pharynx. NECK/THYROID: Trachea midline. No thyroid enlargement, tenderness, or mass. No supraclavicular or cervical adenopathy. RESPIRATORY: Clear to auscultation and percussion. Normal respiratory effort. CARDIOVASCULAR: CARDIAC: Regular rhythm. No murmurs, rubs, or gallops. ARTERIAL: Aortic pulses of normal amplitude with no bruits. JUGULAR VEINS Jugular veins within normal limits. EDEMA/VARICOSITIES OF EXTREMITIES: No edema or varicosities. LYMPHATICS: No lymphadenopathy in the neck, axillae, or groin. GASTROINTESTINAL: ABDOMEN: the abd is soft with normal active bowel sounds. the pt has some mild diffuse tend.there is no rebound or guarding. LIVER/SPLEEN/KIDNEY: No hepatosplenomegaly, tenderness or nodularity. Kidneys not palpable. MUSCULOSKELETAL EXAM: SPINE/RIBS/PELVIS: No kyphosis, lordosis, full range of motion. Normal stability, strength and tone. EXTREMITIES: PE/MS/BILAT UPPER EXT No misalignment or tenderness. Full range of motion. Normal stability, strength and tone. BILATERAL LOWER EXTREMITIES: No misalignment or tenderness. Full range of motion. Normal stability,strength and tone. SKIN: SKIN: Warm, dry, no diaphoresis, no significant lesions, irritation, rashes or ulcers. No induration, obvious subcutaneous nodules or tightening. NEUROLOGIC: CRANIAL NERVES: advisory software engineer II-XII grossly intact. PSYCHIATRIC: Judgment appropriate. Oriented. Normal memory. Mood and affect appropriate. ASSESSMENT/PLAN: 564.00-CONSTIPATION ASSESSMENT: The constipation has not changed. Will not change medication, continue to monitor for complications. No laboratory work is necessary at this time. Protocol reviewed. Clinical guidelines reviewed.the pt has continued constipation and the pt may have a compnent of ibs. the pt is to cont on miralax and will try to add levsin to see if this helps the pt with her abd pains. the pts lab tests and hospital procedures were reviewed. MEDICATIONS: LEVSIN ORAL TABLET 0.125 MG, 1 Every Six Hours, As Needed, 60 Dispensed, status: NEW PRESCRIPTION, 08/13/2005. 477.9-RHINITIS ALLERGIC UNSPECIFIED ASSESSMENT: The patient's allergic rhinitis has not changed. Will add medication to current regimenfor better control. No laboratory work is necessary at this time. Clinical guidelines reviewed. Protocol reviewed.the pt appears to have chronic rhinitis and the pt is to start claritin otc and to start nasonex one spray in each nare once a day and samples were given to the pt from the office. the pt is also to see dr bruce teran an head nurse for eval of her allergy problems. 300.00-ANXIETY ASSESSMENT: The patient's anxiety has not changed. Will not change medication, continue to monitor for complications. No laboratory work is necessary at this time. Clinical guidelines reviewed. Protocol reviewed.for now will cont the pt on prn xanax but in the future may try the pt on lexapro or zoloft to see if this helps the pt with this chronic problem. MEDICATIONS: XANAX ORAL TABLET 0.25 MG, prn, 30 Dispensed, 1 Fills, status: CONTINUED, 08/13/2005. RETURN VISIT : Patient instructed to return in 2 months. Electronically Signed by: Randal Clark MD on July documented in this encounter Plan of Treatment Upcoming Encounters Date Type Department Care Team (Late st Contact Info) Description 07/31/2024 5:00 PM CDT Appointment [facility] Therapy [facility] [address] [address] Chandler Spivey PA [address] [address] Maegan [place], Physical Therapist 08/02/2024 5:00 PM CDT Appointment [facility] Neuro Rehabilitation [address] [address] Jonathan Cortez MD [address] [place], [place] [phone] -[phone] (Work) Sarah Estrada, CLINICAL LABORATORY MANAGER 08/09/2024 5:00 PM CDT Appointment [facility] Therapy [facility] [address] [phone] [place] Spivey PA [address] [address] Maegan [place], Physical Therapist 08/30/2024 3:30 PM CDT Office Visit [facility] Internal Medicine Medical [place] [facility] [address] [address] Juventino Howe MD [address] [facility] [address] [place] [address] 10/31/2024 3:00 PM CDT Office Visit [facility] Pulmonology [facility] [address] [facility] [address] [place] [address] Everett Cam MD [address] [facility] [address] [place] [address] 12/28/2024 2:45 PM FLOORING 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 Office Visit [facility] Endocrinology [address] [facility] [address] [place] [address] Sheldon Canales MD [address] [facility] [address] [place] [address] 02/26/2025 3:10 PM FLOORING 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 Office Visit [facility] Gastroenterology [facility] [address] [facility] [address] [place] [address] Suzette Cody MD [address] [facility] [address] [place] [address] documented as of this encounter Visit Diagnoses Not on filedocumented in this encounter Additional Health Concerns Infection Onset Date Last Indicated Resolved Time R/O Respiratory 01/11/2023 01/11/2023 01/11/2023 7 :48 PM FLOORING 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 R/O Respiratory 02/19/2024 02/19/2024 02/19/2024 1 1:21 AM FLOORING 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 Influenza 02/19/2024 02/19/2024 02/26/2024 1:16 AM FLOORING 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 R/O Respiratory 03/13/2024 03/13/2024 03/13/2024 4 :20 PM FLOORING 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 Human Metapneumovirus 03/13/2024 03/13/20242024 1:16 AM FLOORING 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 R/O C. diff 03/13/2024 03/13/2024 03/14/2024 8:00 PM FLOORING 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 R/O C. diff 03/14/2024 03/14/2024 03/15/2024 6:17 PM FLOORING 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 documented as of this encounter Care Teams Sharepoint Admin Relationship Specialty Start Date End Date Juventino Howe MD [address] [facility] [address] [place] [address] PCP - General Internal Medicine 11/04/11 documented as of this encounter
--- OUTSIDE RECORDS SUMMARY | 2024-07-26 18:08 | XMS_ITS | Encounter Summary ---
Author Organization [facility] Address 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 Gender Identity Not on file Sexual Orientation Not on file documented as of this encounter Plan of Treatment Upcoming Encounters Date Type Department Care Team (Late st Contact Info) Description 07/31/2024 5:00 PM CDT Appointment [facility] Therapy Services [address] [address] Chandler Spivey PA [address] [facility] [address] [place] [address] Maegan [place], Physical Therapist 08/02/2024 5:00 PM CDT Appointment [facility] Neuro Rehabilitation [address] [place] [address] Jonathan Cortez MD [address] [facility] [address] [address] -x0 (Work) Sarah Estrada, MEMBER CERTIFICATION MANAGER 08/09/2024 5:00 PM CDT Appointment [facility] [address] [facility] [address] [place] [address] Chandler Spivey PA [address] [facility] [address] [place] [address] Maegan [place], Physical Therapist 08/30/2024 3:30 PM CDT Office Visit [facility] Internal Medicine Medical [place] [facility] [address] [facility] [address] [address] Juventino Howe MD [address] [facility] [address] [place] [address] 10/31/2024 3:00 PM CDT Office Visit [facility] Pulmonology [facility] [address] [facility] [place] [address] Everett Cam MD [address] [facility] [address] [place] [address] 12/28/2024 2:45 PM MAIL DISTRIBUTION CLERK Office Visit [facility] Endocrinology [address] [facility] [address] [place] [address] Sheldon Canales MD [address] [facility] [address] [place] [address] 02/26/2025 3:10 PM MAIL DISTRIBUTION CLERK Office Visit [facility] Gastroenterology [facility] [address] [facility] [address] [place] [address] Suzette Cody MD [address] [facility] [address] [place] [address] documented as of this encounter Visit Diagnoses Diagnosis Flatulence, eructation, and gas pain documented in this encounter Additional Health Concerns Infection Onset Date Last Indicated Resolved Time R/O Respiratory 01/11/2023 01/11/2023 01/11/2023 7 :48 PM MAIL DISTRIBUTION CLERK R/O Respiratory 02/19/2024 02/19/2024 02/19/2024 1 1:21 AM MAIL DISTRIBUTION CLERK Influenza 02/19/2024 02/19/2024 02/26/2024 1:16 AM MAIL DISTRIBUTION CLERK R/O Respiratory 03/13/2024 03/13/2024 03/13/2024 4 :20 PM MAIL DISTRIBUTION CLERK Human Metapneumovirus 03/13/2024 03/13/20242024 1:16 AM MAIL DISTRIBUTION CLERK R/O C. diff 03/13/2024 03/13/2024 03/14/2024 8:00 PM MAIL DISTRIBUTION CLERK R/O C. diff 03/14/2024 03/14/2024 03/15/2024 6:17 PM MAIL DISTRIBUTION CLERK documented as of this encounter Care Teams Semiconductor Technician Relationship Specialty Start Date End Date Juventino Howe MD [address] [facility] [address] [place] [address] PCP - General Internal Medicine 11/04/11 documented as of this encounter
--- OUTSIDE RECORDS SUMMARY | 2024-07-26 18:08 | XMS_ITS | Encounter Summary ---
Author Organization [facility] Address [address] [place] [address] Care Team Providers Care Occupational Health And Safety Adviser Name Role Phone Juventino Howe MD Primary Care Provider [phone] Encounter Details Date Type Department Care Team (Late st Contact Info) Description 10/26/2005 Orders Only [facility] Diabetic Retinal Scanning Center [address] [place] [address]. [address] [place] [address] Randal Clark MD [address] [place] [address] Social History Tobacco Use Types Packs/Day Years Used Date Smoking Tobacco: Never Assessed Comments Unknown Sex and Gender Information Value Date Recorded Sex Assigned at Not on file Legal Sex Female 3:38 AM IT SUPPORT CONSULTANT Gender Identity Not on file Sexual Orientation Not on file documented as of this encounter Progress Notes * Randal Clark MD - 11/29/2007 5:54 PM CDT BLOOD PRESSURE: 120/80 Right Arm Sitting PULSE: 76 Right Radial, Regular RESPIRATIONS: 20 WEIGHT: 146lbs TEMPERATURE: 97.2??f Oral HEIGHT: 62 1/4in NURSE NAME: Hanna Wellington S ALLERGIES: Allergies are as listed. MEDICATIONS: Medication list current. CHIEF COMPLAINT allergies HISTORY: HISTORY: 477.9-RHINITIS ALLERGIC UNSPECIFIED The allergic rhinitis has not changed and frequent symptoms have been noted since the last visit. The patient has coryza, has rhinorrhea, denies sneezing, denies watery eye. No complications noted from the medication presently being used. No recent laboratory work done.the pt notes she continues to have problems with her allergies. the pt notes that she still has drainage and that this is despite the use of zyrtec nasacort and astelin and saline nose spray. the pt was tx with abx for presumed sinus infection that helped but the pt notes despite tx she is still having sinus problems. the pt was tx with allergy shots for two yrs in the past but the pt notesshe is unsure this helped her much. CURRENT PROBLEM LIST: 300.00 ANXIETY 461.0 ACUTE SINUSITIS 477.9 RHINITIS ALLERGIC UNSPECIFIED 564.00 CONSTIPATION CURRENT MEDICATION LIST: VIVELLE-DOT TRANSDERMAL PATCH BIWEEKLY 0.075 MG/24HR, 1 every 3 days MIRALAX ORAL POWDER, prn XANAX ORAL TABLET 0.25 MG, prn PEPCID AC ORAL TABLET 10 MG, 1 Two Times A Day MUCINEX DM ORAL TABLET 12 HR 30-600 MG, 1 Two Times A Day CURRENT ALLERGY LIST: ASA CECLOR FLOXIN LEVAQUIN NOVACAINE PCN SULFA ROS: GENERAL: Normal activity and energy level, no change in appetite. No major weight gain or loss. No malaise, chills, fever, diaphoresis. ALLERGIC/IMMUNOLOGIC: See HISTORY OF PRESENT ILLNESS. EYES: No vision changes or diplopia. ENT: See HISTORY OF PRESENT ILLNESS. ENDOCRINE: No heat or cold intolerance, no excessive thirst. CARDIAC: No chest pain, palpitations, orthopnea, dyspnea on exertion, or paroxysmal nocturnal dyspnea. RESPIRATORY: No dyspnea, cough, hemoptysis or wheezing. SKIN/BREAST/CHEST: No rashes or non-healing lesions. No breast symptoms noted. HEMATOLOGIC/LYMPHATIC: No anemia, easy bruising, bleeding or swollen nodes. : No frequency, urgency, hematuria or dysuria. GI: No abdominal pain, nausea, vomiting, diarrhea, constipation, melena, or hematochezia. NEUROLOGIC: No weakness, dizziness, loss of consciousness, [...] without retraction. Canals unremarkable. Hearing grossly normal. ORAL: Inspection of gums, lips, palate, and [...] lymphadenopathy in the neck, axillae, or groin. SKIN: SKIN: Warm, dry, no diaphoresis, no significant lesions, irritation, rashes or ulcers. No induration, obvious subcutaneous nodules or tightening. NEUROLOGIC: CRANIAL NERVES: rn palliative care II-XII grossly intact. ASSESSMENT/PLAN: 477.9-RHINITIS ALLERGIC UNSPECIFIED ASSESSMENT: The patient's allergic rhinitis has not changed. Will add medication to current regimenfor better control. No laboratory work is necessary at this time. Clinical guidelines reviewed. Protocol reviewed.the pt has continued problems with allergies and the pt is to cont on the zyrtec and nasacort and astelin. will add singulair at night and the pt will be referred to an conductor pullman dr bruce teran for eval and tx of this problem. the pt notes she had a normal sinus ct over the last few mos by an ent at [facility]. MEDICATIONS: SINGULAIR ORAL TABLET 10 MG, 1 Every Day At Bedtime, 30 Dispensed, 3 Fills, status: NEW PRESCRIPTION, 10/26/2005. ZYRTEC ORAL TABLET 10 MG, 1 Every Day, 30 Dispensed, 3 Fills, status: NEW PRESCRIPTION, 10/26/2005. RETURN VISIT : Instructed to call if not improving. Instructed to return earlier than the next regularly scheduled appointment if not improving. Electronically Signed by: Randal Clark MD on Wednesday, October 26, 2005 documented in this encounter Plan of Treatment Upcoming Encounters Date Type Department Care Team (Late st Contact Info) Description 07/31/2024 5:00 PM CDT Appointment [facility] [address] [address] Chandler Spivey PA [address] [address] Maegan [place], Physical Therapist 08/02/2024 5:00 PM CDT Appointment [facility] Neuro [address] [address] Jonathan Cortez MD [address] [facility] [address] [place] [address] -x0 (Work) Sarah Estrada, DANCE HALL HOST/HOSTESS 08/09/2024 5:00 PM CDT Appointment [facility] [address] [address] Cahndler Spivey PA [address] [facility] [address] [place] [address] Maegan [place], Physical Therapist 08/30/2024 3:30 PM CDT Office Visit [facility] Internal Medicine Medical [place] [facility] [address] [facility] [address] [address] Juventino Howe MD [address] [facility] [address] [place] [address] 10/31/2024 3:00 PM CDT Office Visit [facility] Pulmonology [facility] [address] [facility] [address] [place] [address] Everett Cam MD [address] [address] [place] [address] 12/28/2024 2:45 PM IT SUPPORT CONSULTANT Office Visit [facility] Endocrinology [address] [facility] [address] [address] [place] [address] Sheldon Canales MD [address] [facility] [address] [place] [address] 02/26/2025 3:10 PM IT SUPPORT CONSULTANT Office Visit [facility] Gastroenterology [facility] [address] [facility] [address] [place] [address] Suzette [place] MD [address] [facility] [address] [place] [address] documented as of this encounter Visit Diagnoses Not on filedocumented in this encounter Additional Health Concerns Infection Onset Date Last Indicated Resolved Time R/O Respiratory 01/11/2023 01/11/2023 01/11/2023 7 :48 PM IT SUPPORT CONSULTANT R/O Respiratory 02/19/2024 02/19/2024 02/19/2024 1 1:21 AM IT SUPPORT CONSULTANT Influenza 02/19/2024 02/19/2024 02/26/2024 1:16 AM IT SUPPORT CONSULTANT R/O Respiratory 03/13/2024 03/13/2024 03/13/2024 4 :20 PM IT SUPPORT CONSULTANT Human Metapneumovirus 03/13/2024 03/13/20242024 1:16 AM IT SUPPORT CONSULTANT R/O C. diff 03/13/2024 03/13/2024 03/14/2024 8:00 PM IT SUPPORT CONSULTANT R/O C. diff 03/14/2024 03/14/2024 03/15/2024 6:17 PM IT SUPPORT CONSULTANT documented as of this encounter Care Teams Occupational Health And Safety Adviser Relationship Specialty Start Date End Date Juventino Howe MD [address] [facility] [address] [place] [address] PCP - General Internal Medicine 11/04/11 documented as of this encounter
--- OUTSIDE RECORDS SUMMARY | 2024-07-26 18:08 | XMS_ITS | Encounter Summary ---
Author Organization [facility] Address [address] [place] [address] Care Team Providers Care Head Screen Worker Name Role Phone Juventino Howe MD Primary Care Provider [phone] Encounter Details Date Type Department Care Team (Late Contact Info) Description 08/05/2005 Outpatient Historical HIS [place] [address] [facility] [address] [place] [address] [place] [address] [place] [address] Unspecified Constipation (Primary Dx) Social History Tobacco Use Types Packs/Day Years Used Date Smoking Tobacco: Never Assessed Comments Unknown Sex and Gender Information Value Date Recorded Sex Assigned at Not on file Legal Sex Female 3:38 AM INSTRUCTIONAL SUPPORT SPECIALIST Gender Identity Not on file Sexual Orientation Not on file documented as of this encounter Plan of Treatment Upcoming Encounters Date Type Department Care Team (Late Contact Info) Description 07/31/2024 5:00 PM CDT Appointment [facility] Therapy Services [place] [address] [facility] [address] [place] [address] Chandler Spivey PA [address] [facility] [address] [place] [address] Maegan Duncan, Physical Therapist 08/02/2024 5:00 PM CDT Appointment [facility] Neuro Rehabilitation [place] [address] [facility] [place] [place] [address] Jonathan Cortez MD [address] [facility] [address] [address] -x0 (Work) Sarah Estrada, PARTS ASSEMBLER 08/09/2024 5:00 PM CDT Appointment [facility] Services [place] [address] [facility] [address] [place] [address] Chandler Spivey PA [address] [facility] [address] [place] [address] Maegan Duncan, Physical Therapist 08/30/2024 3:30 PM CDT Office [facility] Internal Medicine Medical [place] [facility] [address] [address] Juventino Howe MD [address] [place] [address] 10/31/2024 3:00 PM CDT Office Visit [facility] Pulmonology [facility] [address] [facility] [address] [place] [address] Everett Cam MD [address] [place] [address] 12/28/2024 2:45 PM INSTRUCTIONAL SUPPORT SPECIALIST Office Visit [facility] Endocrinology [address] [place] [address] Sheldon Canales MD [address] [facility] [address] [place] [address] 02/26/2025 3:10 PM INSTRUCTIONAL SUPPORT SPECIALIST Office Visit [facility] Gastroenterology [place] [address] [facility] [address] [place] [address] Suzette Cody MD [address] [place] [address] [place] [address] documented as of this encounter Procedures Procedure Name Priority Date/Time Associated Diagnosis Comments CBC WITH DIFFERENTIAL Routine 08/05/2005 9:30 PM CDT CBC WITH DIFFERENTIAL Routine 08/05/2005 9:30 PM CDT URINALYSIS W/REFLEX MICROSCOPIC Routine 08/05/2005 9:30 PM CDT LIPASE Routine 08/05/2005 9:30 PM CDT AMYLASE Routine 08/05/2005 9:30 PM CDT documented in this encounter Results * (ABNORMAL) URINALYSIS (08/05/2005 9:30 PM CDT) COLOR UA Colorless INTERFACE SYSTEM CLARITY UA Clear Clear INTERFACE SYSTEM SPECIFIC GRAVITY UA <1.005(L) 1.001 - 1.035 INTERFACE SYSTEM Comment:Results confirmed by 2nd methodology. PH UA 5.0 5.0 - 8.0 INTERFACE SYSTEM LEUKOCYTE ESTERASE UA Negative Negative INTERFACE SYSTEM NITRITE UA Negative Negative INTERFACE SYSTEM PROTEIN UA Negative Negative INTERFACE SYSTEM GLUCOSE UA Negative Negative INTERFACE SYSTEM KETONES UA Negative Negative INTERFACE SYSTEM UROBILINOGEN UA <1 <=1 mg/dL INTE RFACE SYSTEM BILIRUBIN UA Negative Negative INTERFA CE SYSTEM BLOOD UA Negative Negative INTERFACE SYSTEM 08/05/2005 9:30 PM CDT Anton Robertson MD URINE ORDERABLES Final Result INTERFACE SYSTEM Refer to clinic/hospital department * (ABNORMAL) CBC WITH DIFFERENTIAL (08/05/2005 9:30 PM CDT) NEUTROPHILS 52 45 - 70 % INTERFAC E SYSTEM LYMPHOCYTES 41 16 - 45 % INTERFAC E SYSTEM MONOCYTES 5 3 - 13 % INTERFACE SYSTEM EOSINOPHILS 1 0 - 7 % INTERFAC E SYSTEM BASOPHILS 0 0 - 2 % INTERFACE SYSTEM NEUTROPHIL ABSOLUTE 5.78 1.90 - 7.00 K/uL INTERFACE SYSTEM LYMPHOCYTE ABSOLUTE 4.58(H) 0.70 - 4.50 K/uL INTERFACE SYSTEM MONOCYTE ABSOLUTE 0.60 0.10 - 1.30 K/uL INTERFACE SYSTEM EOSINOPHIL ABSOLUTE 0.14 0.00 - 0.70 K/uL INTERFACE SYSTEM BASOPHILS ABSOLUTE 0.04 0.00 - 0.20 K/uL INTERFACE SYSTEM 08/05/2005 9:30 PM CDT Anton Robertson MD HEMATOLOGY ORDERABLES Final Res ult INTERFACE SYSTEM Refer to clinic/hospital department * (ABNORMAL) CBC WITH DIFFERENTIAL (08/05/2005 9:30 PM CDT) WBC 11.1(H) 4.0 - 9.8 K/uL INTERFACE SYSTEM RBC 4.36 3.90 - 4.90 M/uL INTERFACE SYSTEM HEMOGLOBIN 14.5 11.8 - 14.8 g/dL INTERFACE SYSTEM HEMATOCRIT 40.4 35.5 - 44.0 % INTERFACE SYSTEM MCV 92.7 82.0 - 99.0 fL INTERFACE SYSTEM MCH 33.3(H) 27.2 - 32.6 pg INTERFACE SYSTEM MCHC 35.9(H) 31.5 - 35.5 % INTERFACE SYSTEM RDW 12.7 11.5 - 14.5 % INTERFACE SYSTEM RDW-STDEV 43.0 37.1 - 48.7 fL INTERFACE SYSTEM PLATELETS 264 140 - 350 K/uL INTERFACE SYSTEM MPV 10.6 9.3 - 12.4 fL INTERFACE SYSTEM 08/05/2005 9:30 PM CDT Anton Robertson MD HEMATOLOGY ORDERABLES Final Res ult INTERFACE SYSTEM Refer to clinic/hospital department * LIPASE (08/05/2005 9:30 PM CDT) LIPASE 38 13 - 60 U/L INTERFAC E SYSTEM 08/05/2005 9:30 PM CDT Anton Robertson MD CHEMISTRY ORDERABLES Final Resu lt INTERFACE SYSTEM Refer to clinic/hospital department * AMYLASE (08/05/2005 9:30 PM CDT) AMYLASE 35 28 - 100 U/L INTERFACE SYSTEM 08/05/2005 9:30 PM CDT Anton Robertson MD CHEMISTRY ORDERABLES Final Resu lt Performing Organization Address City/[facility] Co de Phone Number INTERFACE SYSTEM Refer to clinic/hospital department documented in this encounter Visit Diagnoses Diagnosis Unspecified constipation- Primary documented in this encounter Additional Health Concerns Infection Onset Date Last Indicated Resolved Time R/O Respiratory 01/11/2023 01/11/2023 01/11/2023 7 :48 PM INSTRUCTIONAL SUPPORT SPECIALIST R/O Respiratory 02/19/2024 02/19/2024 02/19/2024 1 1:21 AM INSTRUCTIONAL SUPPORT SPECIALIST Influenza 02/19/2024 02/19/2024 02/26/2024 1:16 AM INSTRUCTIONAL SUPPORT SPECIALIST R/O Respiratory 03/13/2024 03/13/2024 03/13/2024 4 :20 PM INSTRUCTIONAL SUPPORT SPECIALIST Human Metapneumovirus 03/13/2024 03/13/20242024 1:16 AM INSTRUCTIONAL SUPPORT SPECIALIST R/O C. diff 03/13/2024 03/13/2024 03/14/2024 8:00 PM INSTRUCTIONAL SUPPORT SPECIALIST R/O C. diff 03/14/2024 03/14/2024 03/15/2024 6:17 PM INSTRUCTIONAL SUPPORT SPECIALIST documented as of this encounter Care Teams Head Screen Worker Relationship Specialty Start Date End Date Juventino Howe MD [address] [place] [address] PCP - General Internal Medicine 11/04/11 documented as of this encounter
--- OUTSIDE RECORDS SUMMARY | 2024-07-26 18:08 | XMS_ITS | Encounter Summary ---
Author Organization [facility] Address [address] [place] [address] Care Team Providers Care Oxygen Equipment Preparer Name Role Phone Juventino Howe MD Primary Care Provider Encounter Details Date Type Department Care Team (Late st Contact Info) Description 10/08/2006 Outpatient Historical HIS [facility] Lynne Navarro MD [address] [place] [address] Social History Tobacco Use Types Packs/Day Years Used Date Smoking Tobacco: Never Assessed Comments Unknown Sex and Gender Information Value Date Recorded Sex Assigned at Not on file Legal Sex Female 3:38 AM MANUFACTURING ENGINEERING PROFESSOR Gender Identity Not on file Sexual Orientation Not on file documented as of this encounter Plan of Treatment Upcoming Encounters Date Type Department Care Team (Late st Contact Info) Description 07/31/2024 5:00 PM CDT Appointment [facility] Therapy Services [address] [address] Chandler Spivey PA [address] [place] [address] Maegan Duncan, Physical Therapist 08/02/2024 5:00 PM CDT Appointment [facility] Neuro Rehabilitation [facility] [address] [facility] [place] [address] Jonathan Cortez MD [address] [facility] [address] [address] -x0 (Work) Sarah Estrada, RYAN 08/09/2024 5:00 PM CDT Appointment [facility] Services [place] [address] [place] [address] Chandler Spivey PA [address] [facility] [address] [place] [address] Maegan Duncan, Physical Therapist 08/30/2024 3:30 PM CDT Office Visit [facility] Internal Medicine Medical [place] A [address] [address] Juventino Howe MD [address] [place] [address] 10/31/2024 3:00 PM CDT Office Visit [facility] Pulmonology [facility] [address] [facility] [address] [address] [place] [address] Everett Cam MD [address] [facility] [address] [place] [address] 12/28/2024 2:45 PM MANUFACTURING ENGINEERING PROFESSOR Office Visit [facility] Endocrinology [address] [facility] [address] [place] [address] Sheldon Canales MD [address] [place] [address] 02/26/2025 3:10 PM MANUFACTURING ENGINEERING PROFESSOR Office Visit [facility] Gastroenterology [place] [address] [facility] [address] [place] [address] Suzette Cody MD [address] [place] [address] [place] [address] documented as of this encounter Visit Diagnoses Not on filedocumented in this encounter Additional Health Concerns Infection Onset Date Last Indicated Resolved Time R/O Respiratory 01/11/2023 01/11/2023 01/11/2023 7 :48 PM MANUFACTURING ENGINEERING PROFESSOR R/O Respiratory 02/19/2024 02/19/2024 02/19/2024 1 1:21 AM MANUFACTURING ENGINEERING PROFESSOR Influenza 02/19/2024 02/19/2024 02/26/2024 1:16 AM MANUFACTURING ENGINEERING PROFESSOR R/O Respiratory 03/13/2024 03/13/2024 03/13/2024 4 :20 PM MANUFACTURING ENGINEERING PROFESSOR Human Metapneumovirus 03/13/2024 03/13/20242024 1:16 AM MANUFACTURING ENGINEERING PROFESSOR R/O C. diff 03/13/2024 03/13/2024 03/14/2024 8:00 PM MANUFACTURING ENGINEERING PROFESSOR R/O C. diff 03/14/2024 03/14/2024 03/15/2024 6:17 PM MANUFACTURING ENGINEERING PROFESSOR documented as of this encounter Care Teams Oxygen Equipment Preparer Relationship Specialty Start Date End Date Juventino Howe MD [address] [facility] [address] [place] [address] PCP - General Internal Medicine 11/04/11 documented as of this encounter
--- OUTSIDE RECORDS SUMMARY | 2024-07-26 18:08 | XMS_ITS | Encounter Summary ---
Author Organization [facility] Address 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 Gender Identity Not on file Sexual Orientation Not on file documented as of this encounter Plan of Treatment Upcoming Encounters Date Type Department Care Team (Late st Contact Info) Description 07/31/2024 5:00 PM CDT Appointment [facility] Therapy Services [address] [place] [address] Chandler Spivey PA [address] [place] [address] Maegan Duncan, Physical Therapist 08/02/2024 5:00 PM CDT Appointment [facility] Neuro Rehabilitation [address] [place] [address] Jonathan Cortez MD [address] [facility] [address] [address] -x0 (Work) Sarah Estrada, LACROSSE PLAYER 08/09/2024 5:00 PM CDT Appointment [facility] [place] [facility] [place] [address] [place] [address] Chandler Spivey PA [address] [facility] [address] [place] [address] Maegan Duncan, Physical Therapist 08/30/2024 3:30 PM CDT Office Visit [facility] Internal Medicine [facility] [place] [address] [facility] [address] [address] Juventino Howe MD [address] [facility] [address] [place] [address] 10/31/2024 3:00 PM CDT Office Visit [facility] Pulmonology [facility] [address] [facility] [address] [place] [address] Everett Cam MD [address] [facility] [address] [place] [address] 12/28/2024 2:45 PM FUR VAULT ATTENDANT Office Visit [facility] Endocrinology [address] [facility] [address] [place] [address] Sheldon Canales MD [address] [facility] [address] [place] [address] 02/26/2025 3:10 PM FUR VAULT ATTENDANT Office Visit [facility] Gastroenterology [address] [facility] [address] [place] [address] Suzette Cody MD [address] [facility] [address] [place] [address] documented as of this encounter Procedures Procedure Name Priority Date/Time Associated Diagnosis Comments CT ABDOMEN PELVIS W CONTRAST Routine 09/27/2007 12:04 AM CDT URINALYSIS WITH REFLEX CULTURE Stat 09/26/2007 9:45 PM CDT URINALYSIS W/REFLEX MICROSCOPIC Stat 09/26/2007 9:45 PM CDT CBC WITH DIFFERENTIAL Stat 09/26/2007 9:41 PM CDT C-REACTIVE PROTEIN Stat 09/26/2007 9: 41 PM CDT LIPASE Stat 09/26/2007 9:41 PM CDT AMYLASE Stat 09/26/2007 9:41 PM CDT COMPREHENSIVE METABOLIC PANEL Stat 09/26/2007 9:41 PM CDT documented in this encounter Results * CT ABDOMEN PELVIS W CONTRAST (09/27/2007 12:04 AM CDT) Anatomical Region Laterality Modality Abdomen Other 09/27/2007 12:0 4 AM CDT Narrative 09/27/2007 12:20 AM CDT [facility] [address] [place], [place] [address] Admit Date: 09/26/2007 DUYEN OROSCO Sex: F Admit Prov: ER, AUTHORIZED P Date: 1960 Primary Care Prov: CMRN: [id number] [id number] IMAGING SERVICES Ordering Prov: N/A Accession Number: [id number] Interpretation CT abdomen and pelvis with contrast 09/27/2007 History: Abdominal pain. Technique: Contiguous 5 mm enhanced images were obtained through the abdomen and pelvis Findings: Comparison study is dated 01/26/2007. The lung bases are unremarkable. The liver, spleen, pancreas, adrenal glands and kidneys are unremarkable. No intraperitoneal free fluid or free air is seen. No bowel obstruction is visualized. The appendix is well visualized and appears normal. There is no evidence of diverticulitis. The uterus is not seen. The aorta is mildly calcified. Subcentimeter left periaortic lymph nodes are again seen . The urinary bladder is unremarkable. No pelvic mass or lymphadenopathy is identified. Impression: No evidence of acute abnormality. . Dictated by: LEONORA LYNN 09/27/2007 00:15 Electronically signed by: LEONORA LYNN 09/27/2007 00:18 Procedure Note Leonora Lynn - 09/27/2007 [facility] [address] [facility] [address] [place], [place] [address] Admit Date: 09/26/2007 DUYEN OROSCO Sex: F Admit Prov: ER, AUTHORIZED P Date: 1960 Primary Care Prov: CMRN: [id number] Room: ER-A SSN: [id number] IMAGING SERVICES Ordering Prov: N/A Interpretation CT abdomen and pelvis with contrast 09/27/2007 History: Abdominal pain. Technique: Contiguous 5 mm enhanced images were obtained throughthe abdomen and pelvis Findings: Comparison study is dated 01/26/2007. The lung bases are unremarkable. The liver, spleen, pancreas, adrenal glands and kidneysare unremarkable. No intraperitoneal free fluid or free air is seen. Nobowel obstruction is visualized. The appendix is well visualized andappears normal. There is no evidence of diverticulitis. The uterus is notseen. The aorta is mildly calcified. Subcentimeter left periaortic lymph nodesare again seen . The urinary bladder is unremarkable. No pelvic mass or lymphadenopathy is identified. Impression: No evidence of acute abnormality. . Dictated by: LEONORA LYNN 09/27/2007 00:15 Electronically signed by: LEONORA LYNN 09/27/2007 00:18 us Hill Alexander MD CT ORDERABLES Final R esult * URINALYSIS (09/26/2007 9:45 PM CDT) SPECIFIC GRAVITY UA 1.004 1.001 - 1.035 [facility] BLOOD UA Negative Negative [facility] GLUCOSE UA Negative Negative [facility] COLOR UA Pale Yellow [facility] NITRITE UA Negative Negative [facility] UROBILINOGEN UA <1 <=1 mg/dL [facility] PH UA 5.0 5.0 - 8.0 [facility] KETONES UA Negative Negative [facility] CLARITY UA Clear Clear [facility] PROTEIN UA Negative Negative [facility] BILIRUBIN UA Negative Negative [facility] LEUKOCYTE ESTERASE UA Negative Negative [facility] 09/26/2007 9:45 PM CDT 09/26/2007 9:58 PM CDT Hill Alexander MD URINE ORDERABLES Final Result Performing Organization Address [facility] de Phone Number [facility] CLIA# [id number] [address] [facility] [place] [address] * URINALYSIS WITH REFLEX CULTURE (09/26/2007 9:45 PM CDT) URINE CULTURE ORDER Not indicated [facility] Comment: Criteria for a reflex culture include one or more of the following: Abnormal nitrite, leukocyte esterase, WBCs or RBCs. Lack of qualifying criteria does not exclude the possiblity of a urinary tract infection. Dilute urine, drug interference, etc. may decrease the sensitivity of the criteria analytes. Urine specimen (specimen) 09/26/2007 9:45 PM CDT 09/26/2007 9:58 PM CDT Hill Alexander MD URINE ORDERABLES Final Result Performing Organization Address [facility] Co de Phone Number [facility] CLIA# [id number] [address] [facility] [place] [address] * LIPASE (09/26/2007 9:41 PM CDT) LIPASE 49 13 - 60 U/L [facility] Blood specimen (specimen) 09/26/2007 9:41 PM CDT 09/26/2007 9:43 PM CDT Narrative [facility] - 09/27/2007 3:18 PM CDT add on blood in lab Hill Alexander MD CHEMISTRY ORDERABLES Fi nal Result Performing Organization Address City/[facility]/ZIP Co de Phone Number [facility] CLIA# [id number] [address] [place] [address] * AMYLASE (09/26/2007 9:41 PM CDT) AMYLASE 32 28 - 100 U/L [facility] Blood specimen (specimen) 09/26/2007 9:41 PM CDT 09/26/2007 9:43 PM CDT Narrative [facility] - 09/27/2007 3:18 PM CDT add on blood in lab Hill Alexander MD CHEMISTRY ORDERABLES Fi nal Result Performing Organization Address City/[facility]/ZIP Co de Phone Number [facility] CLIA# [id number] [address] [place] [address] * C-REACTIVE PROTEIN (09/26/2007 9:41 PM CDT) CRP 0.6 0.0 - 0.8 mg/dL [facility] Blood specimen (specimen) 09/26/2007 9:41 PM CDT 09/26/2007 9:43 PM CDT Hill Alexander MD CHEMISTRY ORDERABLES Fi nal Result [facility] CLIA# [id number] [address] [place] [address] * (ABNORMAL) COMPREHENSIVE METABOLIC PANEL (09/26/2007 9:41 PM CDT) BUN 9 6 - 20 mg/dL [facility] CALCIUM 10.3(H) 8.6 - 10.2 mg/dL [facility] Comment:Note new reference r coni effective 09/15/07 CHLORIDE 101 96 - 108 mmol/L [facility] ALBUMIN 4.8 3.4 - 4.8 g/dL [facility] CREATININE 0.78 0.51 - 0.95 mg/dL [facility] SODIUM 138 135 - 145 mmol/L [facility] ALT 40(H) 0 - 31 U/L [facility] ALKALINE PHOSPHATASE 132(H) 35 - 104 U/L [facility] BILIRUBIN TOTAL 0.3 0.2 - 1.0 mg/dL [facility] CO2 25 22 - 30 mmol/L [facility] TOTAL PROTEIN 7.8 6.3 - 8.6 g/dL [facility] POTASSIUM 3.7 3.5 - 4.9 mmol/L [facility] GLUCOSE 88 65 - 99 mg/dL [facility] AST 34(H) 12 - 32 U/L [facility] GFR, >60 >=60 mL/min/1. 7 sq meter [facility] GFR >60 >=60 mL/min/1. 7 sq meter [facility] Comment: Modification of Diet in Renal Disease (MDRD) study formula. Estimated GFR rate interpretative information for both Americans and non- Americans is available on the [facility] Intranet at: [email or web address] Select: Lab Policies and Procedures Select: Reference Ranges - GFR Blood specimen (specimen) 09/26/2007 9:41 PM CDT 09/26/2007 9:43 PM CDT us Hill Alexander MD CHEMISTRY ORDERABLES Ed ited [facility] CLIA# [id number] [address] [facility] [address] * (ABNORMAL) CBC WITH DIFFERENTIAL (09/26/2007 9:41 PM CDT) MCV 93.0 82.0 - 99.0 fL [facility] PLATELETS 279 140 - 350 K/uL [facility] HEMOGLOBIN 16.4(H) 11.8 - 14.8 g/dL [facility] RDW 13.1 11.5 - 14.5 % [facility] WBC 9.0 4.0 - 9.8 K/uL [facility] MCH 32.9(H) 27.2 - 32.6 pg [facility] MPV 11.2 9.3 - 12.4 fL [facility] HEMATOCRIT 46.3(H) 35.5 - 44.0 % [facility] RDW-STDEV 44.0 37.1 - 48.7 fL [facility] RBC 4.98(H) 3.90 - 4.90 M/uL [facility] MCHC 35.4 31.5 - 35.5 % [facility] NEUTROPHIL ABSOLUTE 4.37 1.90 - 7.00 K/uL [facility] EOSINOPHILS 2 0 - 7 % [facility] EOSINOPHIL ABSOLUTE 0.17 0.00 - 0.70 K/uL [facility] LYMPHOCYTES 42 16 - 45 % [facility] LYMPHOCYTE ABSOLUTE 3.75 0.70 - 4.50 K/uL [facility] BASOPHILS 0 0 - 2 % [facility] BASOPHILS ABSOLUTE 0.03 0.00 - 0.20 K/uL [facility] MONOCYTES 7 3 - 13 % [facility] MONOCYTE ABSOLUTE 0.64 0.10 - 1.30 K/uL [facility] NEUTROPHILS 49 45 - 70 % [facility] Blood specimen (specimen) 09/26/2007 9:41 PM CDT 09/26/2007 9:43 PM CDT Narrative INTERFACE SYSTEM - 09/29/2007 4:58 PM CDT results faxed 09/29/07 4:58 PM dl [phone] us Hill Alexander MD HEMATOLOGY ORDERABLES E dited INTERFACE SYSTEM Refer to clinic/hospital department [facility] CLIA# [id number] [address] [place] [address] documented in this encounter Visit Diagnoses Not on filedocumented in this encounter Additional Health Concerns Infection Onset Date Last Indicated Resolved Time R/O Respiratory 01/11/2023 01/11/2023 01/11/2023 7 :48 PM FUR VAULT ATTENDANT R/O Respiratory 02/19/2024 02/19/2024 02/19/2024 1 1:21 AM FUR VAULT ATTENDANT Influenza 02/19/2024 02/19/2024 02/26/2024 1:16 AM FUR VAULT ATTENDANT R/O Respiratory 03/13/2024 03/13/2024 03/13/2024 4 :20 PM FUR VAULT ATTENDANT Human Metapneumovirus 03/13/2024 03/13/20242024 1:16 AM FUR VAULT ATTENDANT R/O C. diff 03/13/2024 03/13/2024 03/14/2024 8:00 PM FUR VAULT ATTENDANT R/O C. diff 03/14/2024 03/14/2024 03/15/2024 6:17 PM FUR VAULT ATTENDANT documented as of this encounter Care Teams Client Success Director Relationship Specialty Start Date End Date Juventino Howe MD [address] [place] [address] PCP - General Internal Medicine 11/04/11 documented as of this encounter
--- OUTSIDE RECORDS SUMMARY | 2024-07-26 18:09 | XMS_ITS | Encounter Summary ---
Author Organization [facility] Address 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) Social History Tobacco Use Types Packs/Day Years Used Date Smoking Tobacco: Never Assessed Comments Unknown Sex and Gender Information Value Date Recorded Sex Assigned at Not on file 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 Gender Identity Not on file Sexual Orientation Not on file documented as of this encounter Plan of Treatment Upcoming Encounters Date Type Department Care Team (Late st Contact Info) Description 07/31/2024 5:00 PM CDT Appointment [facility] Therapy Services [address] [address] Chandler Spivey PA [address] [facility] [address] [place] [address] Maegan Duncan, Physical Therapist 08/02/2024 5:00 PM CDT Appointment [facility] [address] [facility] [place] [address] Jonathan Cortez MD [address] [facility] [address] [address] -x0 (Work) Sarah Estrada, RYAN 08/09/2024 5:00 PM CDT Appointment [facility] [address] [facility] [address] [place] [address] Chandler Spivey PA [address] [facility] [address] [place] [address] Maegan Duncan, Physical Therapist 08/30/2024 3:30 PM CDT Office Visit [facility] Internal Medicine [facility] [place] [facility] [address] [facility] [address] [address] Juventino Howe MD [address] [facility] [address] [place] [address] 10/31/2024 3:00 PM CDT Office Visit [facility] Pulmonology [facility] [address] [facility] [address] [place] [address] Everett Cam MD [address] [facility] [address] [place] [address] 12/28/2024 2:45 PM SHIP STEWARD Office Visit [facility] Endocrinology [address] [facility] [address] [place] [address] Sheldon Canales MD [address] [facility] [address] [place] [address] 02/26/2025 3:10 PM SHIP STEWARD Office Visit [facility] Gastroenterology [facility] [address] [facility] [address] [place] [address] Suzette Cody MD [address] [facility] [address] [place] [address] documented as of this encounter Procedures Procedure Name Priority Date/Time Associated Diagnosis Comments POC GLUCOSE Routine 11/20/2005 1:30 PM CDT CBC WITHOUT DIFFERENTIAL Routine 11/13/2005 12:00 PM CDT BASIC METABOLIC PANEL Routine 11/13/2005 12:00 PM CDT documented in this encounter Results * POC GLUCOSE (11/20/2005 1:30 PM CDT) [facility] GLUCOSE POC 87 65 - 109 mg/dL INTERFACE SYSTEM 11/20/2005 1:30 PM CDT Wendy Canales MD POINT OF CARE TESTING F inal Result Performing Organization Address [facility] Phone Number INTERFACE SYSTEM Refer to clinic/hospital department * (ABNORMAL) CBC WITHOUT DIFFERENTIAL (11/13/2005 12:00 PM CDT) [facility] WBC 9.0 4.0 - 9.8 K/uL INTERFACE SYSTEM RBC 4.79 3.90 - 4.90 M/uL INTERFACE SYSTEM HEMOGLOBIN 15.6(H) 11.8 - 14.8 g/dL INTERFACE SYSTEM HEMATOCRIT 44.9(H) 35.5 - 44.0 % INTERFACE SYSTEM MCV 93.7 82.0 - 99.0 fL INTERFACE SYSTEM MCH 32.6 27.2 - 32.6 pg INTERFACE SYSTEM MCHC 34.7 31.5 - 35.5 % INTERFACE SYSTEM RDW 12.5 11.5 - 14.5 % INTERFACE SYSTEM RDW-STDEV 42.7 37.1 - 48.7 fL INTERFACE SYSTEM PLATELETS 291 140 - 350 K/uL INTERFACE SYSTEM MPV 10.7 9.3 - 12.4 fL INTERFACE SYSTEM 11/13/2005 12:0 0 PM CDT us Wendy Canales MD HEMATOLOGY ORDERABLES F inal Result Performing Organization Address [facility] Co de Phone Number INTERFACE SYSTEM Refer to clinic/hospital department * BASIC METABOLIC PANEL (11/13/2005 12:00 PM CDT) GLUCOSE 83 65 - 99 mg/dL INTERFACE SYSTEM CREATININE 0.8 0.4 - 1.2 mg/dL INTERFACE SYSTEM CALCIUM 9.4 8.4 - 10.2 mg/dL INTERFACE SYSTEM BUN 8 6 - 20 mg/dL INTERFACE SYSTEM SODIUM 138 135 - 145 mmol/L INTERFACE SYSTEM POTASSIUM 4.0 3.5 - 4.9 mmol/L INTERFACE SYSTEM CHLORIDE 102 96 - 108 mmol/L INTERFACE SYSTEM CO2 26 22 - 30 mmol/L INTERFACE SYSTEM 11/13/2005 12:0 0 PM CDT us Wendy Canales MD CHEMISTRY ORDERABLES Fi nal Result INTERFACE SYSTEM Refer to clinic/hospital department documented in this encounter Visit Diagnoses Diagnosis Prolapse of vaginal vault after hysterectomy- Primary documented in this encounter Additional Health Concerns Infection Onset Date Last Indicated Resolved Time R/O Respiratory 01/11/2023 01/11/2023 01/11/2023 7 :48 PM SHIP STEWARD R/O Respiratory 02/19/2024 02/19/2024 02/19/2024 1 1:21 AM SHIP STEWARD Influenza 02/19/2024 02/19/2024 02/26/2024 1:16 AM SHIP STEWARD R/O Respiratory 03/13/2024 03/13/2024 03/13/2024 4 :20 PM SHIP STEWARD Human Metapneumovirus 03/13/2024 03/13/20242024 1:16 AM SHIP STEWARD R/O C. diff 03/13/2024 03/13/2024 03/14/2024 8:00 PM SHIP STEWARD R/O C. diff 03/14/2024 03/14/2024 03/15/2024 6:17 PM SHIP STEWARD documented as of this encounter Care Teams Councilor Relationship Specialty Start Date End Date Juventino Howe MD [address] [facility] [address] [place] [address] PCP - General Internal Medicine 11/04/11 documented as of this encounter
--- OUTSIDE RECORDS SUMMARY | 2024-07-26 18:09 | XMS_ITS | Encounter Summary ---
Author Organization [facility] Address 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 Gender Identity Not on file Sexual Orientation Not on file documented as of this encounter Plan of Treatment Upcoming Encounters Date Type Department Care Team (Late st Contact Info) Description 07/31/2024 5:00 PM CDT Appointment [facility] Therapy Services [address] [address] Chandler Spivey PA [address] [facility] [address] [place] [address] Maegan Duncan, Physical Therapist 08/02/2024 5:00 PM CDT Appointment [facility] Neuro Rehabilitation [place] [address] [facility] [place] [address] Jonathan Cortez MD [address] [facility] [address] [address] -x0 (Work) Sarah Estrada, SECTION CUTTER 08/09/2024 5:00 PM CDT Appointment [facility] [address] [facility] [address] [place] [address] Chandler Spivey PA [address] [facility] [address] [place] [address] Maegan Duncan, Physical Therapist 08/30/2024 3:30 PM CDT [facility] Internal [facility] Medical [place] [facility] [address] [facility] [address] [address] Juventino Howe MD [address] [facility] [address] [place] [address] 10/31/2024 3:00 PM CDT [facility] Pulmon[facility] [address] [facility] [address] [place] [address] Everett Cam MD [address] [facility] [address] [place] [address] 12/28/2024 2:45 PM AIRCRAFT ENGINE MECHANIC SUPERVISOR [facility] Endocrinology [address] [facility] [address] [place] [address] Sheldon Canales MD [address] [facility] [address] [place] [address] 02/26/2025 3:10 PM AIRCRAFT ENGINE MECHANIC SUPERVISOR Office Visit [facility] Gastroenterology [facility] [address] [facility] [address] [place] [address] Suzette Cody MD [address] [facility] Im[address] [place] [address] documented as of this encounter Procedures Procedure Name Priority Date/Time Associated Diagnosis Comments BASIC METABOLIC PANEL Routine 12/30/2005 5:10 PM AIRCRAFT ENGINE MECHANIC SUPERVISOR documented in this encounter Results * BASIC METABOLIC PANEL (12/30/2005 5:10 PM AIRCRAFT ENGINE MECHANIC SUPERVISOR) GLUCOSE 83 65 - 99 mg/dL INTERFACE SYSTEM CREATININE 0.80 0.51 - 0.95 mg/dL INTERFACE SYSTEM Comment:Note: Effective 12/16 New Methodolgy and Reference Ranges CALCIUM 9.0 8.4 - 10.2 mg/dL INTERFACE SYSTEM BUN 11 6 - 20 mg/dL INTERFACE SYSTEM SODIUM 137 135 - 145 mmol/L INTERFACE SYSTEM POTASSIUM 4.0 3.5 - 4.9 mmol/L INTERFACE SYSTEM CHLORIDE 102 96 - 108 mmol/L INTERFACE SYSTEM CO2 27 22 - 30 mmol/L INTERFACE SYSTEM 12/30/2005 5:10 PM AIRCRAFT ENGINE MECHANIC SUPERVISOR us Lynne Escobar MD CHEMISTRY ORDERABLES Final Resu lt INTERFACE SYSTEM Refer to clinic/hospital department documented in this encounter Visit Diagnoses Diagnosis Unspecified constipation- Primary documented in this encounter Additional Health Concerns Infection Onset Date Last Indicated Resolved Time R/O Respiratory 01/11/2023 01/11/2023 01/11/2023 7 :48 PM AIRCRAFT ENGINE MECHANIC SUPERVISOR R/O Respiratory 02/19/2024 02/19/2024 02/19/2024 1 1:21 AM AIRCRAFT ENGINE MECHANIC SUPERVISOR Influenza 02/19/2024 02/19/2024 02/26/2024 1:16 AM AIRCRAFT ENGINE MECHANIC SUPERVISOR R/O Respiratory 03/13/2024 03/13/2024 03/13/2024 4 :20 PM AIRCRAFT ENGINE MECHANIC SUPERVISOR Human Metapneumovirus 03/13/2024 03/13/20242024 1:16 AM AIRCRAFT ENGINE MECHANIC SUPERVISOR R/O C. diff 03/13/2024 03/13/2024 03/14/2024 8:00 PM AIRCRAFT ENGINE MECHANIC SUPERVISOR R/O C. diff 03/14/2024 03/14/2024 03/15/2024 6:17 PM AIRCRAFT ENGINE MECHANIC SUPERVISOR documented as of this encounter Care Teams Sort Supervisor Relationship Specialty Start Date End Date Juventino Howe MD [address] [facility] [address] [place] [address] PCP - General Internal Medicine 11/04/11 documented as of this encounter
--- OUTSIDE RECORDS SUMMARY | 2024-07-26 18:09 | XMS_ITS | Encounter Summary ---
Author Organization [facility] Address [address] [place] [address] Care Team Providers Care Manager Paid Name Role Phone Juventino Howe MD Primary Care Provider [phone] Encounter Details Date Type Department Care Team (Late st Contact Info) Description 04/03/2011 Chart Note [facility] Services [address] [address] Marly Cuenca Physical Therapist Social History Tobacco Use Types Packs/Day Years Used Date Smoking Tobacco: Every Day Cigarettes 0.5 15 Started: 05/06/1995; Last attempted to quit: 05/05/2010 Smokeless Tobacco: Never Alcohol Use Standard Drinks/Week Comments Yes 0.8 (1 standard drink = 0.6 oz p ure alcohol) Comments No Sex and Gender Information Value Date Recorded Sex Assigned at Not on file Legal Sex Female 3:38 AM MECHANICAL DETAILER Gender Identity Not on file Sexual Orientation Not on file 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 Physical Therapy Discharge Summary Patient: Duyen Orosco Date: 04/03/2011 Date of : 1960 Physician: Fernando Morgan MD Diagnosis: Pelvic floor dysfunction Duyen Orosco was seen from 01/16/11 to 02/11/11 . This patient did not return for further therapy visits following the last session noted above. There was a progress note done on 02/11/11 however the patient called in to the office here in Feb 2011 and cancelled remaining visits saying that she had to catch up on bills. Treatments consisted of: HEP Instruction, Gait Training, Posture/Body Mechanics and Neuromuscular Re-Education Therapeutic Exercise to increase Strength, ROM, Flexibility and Stablization. Manual Treatments - Soft/Deep Tissue Massage Modalities - Heat, Cold, Ultrasound, Electrical Stimulation and Iontophoresis Objective Measurements: 02/11/11 progress note The patient discharged from therapy secondary to noncompliance. Please contact me if you have any questions. Thank you for this referral. Marly Cuenca, PT [facility] Therapy Services [address] [place] [address], [address] [place] [address] (fax) ANICAL DETAILER documented in this encounter Plan of Treatment Upcoming Encounters Date Type Department Care Team (Late st Contact Info) Description 07/31/2024 5:00 PM CDT Appointment [facility] Therapy [address] [address] Chandler Spivey PA [address] [address] Maegan Duncan, Physical Therapist 08/02/2024 5:00 PM CDT Appointment [facility] Neuro Rehabilitation [address] [address] Jonathan Cortez MD [address] [facility] [address] [address] -x0 (Work) Sarah Estrada, PASTRYCOOK 08/09/2024 5:00 PM CDT Appointment [facility] Therapy [facility] [address] [address] Chandler Spivey PA [address] [place] [address] Maegan Duncan, Physical Therapist 08/30/2024 3:30 PM CDT Office Visit [facility] Internal Medicine Medical [place] [facility] 189 [address] [facility] [address] [address] Juventino Howe MD [address] [facility] [address] [place] [address] 10/31/2024 3:00 PM CDT Office Visit [facility] Pulmonology [facility] [address] [place] [address] Everett Cam MD [address] [facility] [address] [place] [address] 12/28/2024 2:45 PM MECHANICAL DETAILER Office Visit [facility] Endocrinology [address] [facility] [address] [place] [address] Sheldon Canales MD [address] [facility] [address] [place] [address] 02/26/2025 3:10 PM MECHANICAL DETAILER Office Visit [facility] Gastroenterology [facility] 1200 [address] [facility] 1200 [place] [address] Suzette Cody MD [address] [facility] 1200 [place] [address] documented as of this encounter Visit Diagnoses Not on filedocumented in this encounter Additional Health Concerns Infection Onset Date Last Indicated Resolved Time R/O Respiratory 01/11/2023 01/11/2023 01/11/2023 7 :48 PM MECHANICAL DETAILER R/O Respiratory 02/19/2024 02/19/2024 02/19/2024 1 1:21 AM MECHANICAL DETAILER Influenza 02/19/2024 02/19/2024 02/26/2024 1:16 AM MECHANICAL DETAILER R/O Respiratory 03/13/2024 03/13/2024 03/13/2024 4 :20 PM MECHANICAL DETAILER Human Metapneumovirus 03/13/2024 03/13/20242024 1:16 AM MECHANICAL DETAILER R/O C. diff 03/13/2024 03/13/2024 03/14/2024 8:00 PM MECHANICAL DETAILER R/O C. diff 03/14/2024 03/14/2024 03/15/2024 6:17 PM MECHANICAL DETAILER documented as of this encounter Care Teams Manager Paid Relationship Specialty Start Date End Date Juventino Howe MD [address] [facility] [address] [place] [address] PCP - General Internal Medicine 11/04/11 documented as of this encounter
--- OUTSIDE RECORDS SUMMARY | 2024-07-26 18:09 | XMS_ITS | Encounter Summary ---
Author Organization [employer] [facility] Address [address] [place] [address] Care Team Providers Care Senior Software Developer Name Role Phone Juventino Howe MD Primary Care Provider [phone] Encounter Details Date Type Department Care Team (Late st Contact Info) Description 09/30/2005 Orders Only [facility] Diabetic [facility] [address] [place] [address]. [address] [place] [address] Randal Clark MD [address] [place] [address] Social History Tobacco Use Types Packs/Day Years Used Date Smoking Tobacco: Never Assessed Comments Unknown Sex and Gender Information Value Date Recorded Sex Assigned at Not on file Legal Sex Female 3:38 AM RESOURCE SPECIALIST Gender Identity Not on file Sexual Orientation Not on file documented as of this encounter Progress Notes * Randal Clark MD - 11/24/2007 10:54 PM CDT TIME:10:54 am PATIENT`S HOME PHONE: PATIENT`S WORK PHONE: PATIENT`S INSURANCE: [facility] WHO TOOK THE CALL: Asiya Corrigan J GENERAL INFORMATION PATIENT STATUS: Established Patient. PCP: mm. * Randal Clark MD - 11/24/2007 10:51 PM CDT BLOOD PRESSURE: 110/70 Right Arm Sitting PULSE: 72 Right Radial, Regular RESPIRATIONS: 16 WEIGHT: 147lbs TEMPERATURE: 97.7??f Oral HEIGHT: 5ft2 1/4in NURSE NAME: Hanna Wellington S ALLERGIES: Allergies are as listed. MEDICATIONS: Medication list current. CHIEF COMPLAINT sinus infection HISTORY: HISTORY OF PRESENT ILLNESS: UPPER RESPIRATORY: Onset is sudden. The upper respiratory symptoms began approximately 6 days ago. The patient has no symptoms of allergies, no symptoms of chest congestion, no symptoms of chest pain, no symptoms of chills, no symptoms of confusion, has symptoms of cough, no symptoms of dental pain, has no symptoms of diarrhea, no symptoms of dizziness/lightheadedness, no symptoms of dyspnea on exertion, no symptoms of earache, has no symptoms of ears popping, symptoms include facial pain, no symptoms of fatigue, no symptoms of generalized aches, no symptoms of headache, no symptoms of hearing loss, no symptoms of hoarseness, no loss of appetite, no symptoms of malaise, no symptoms of myalgi as, symptoms include nasal congestion, symptoms include nasal discharge, no symptoms of nausea, no symptoms of neck pain, symptoms include post nasal drainage, symptoms include runny nose, no symptoms of shortness of breath, symptoms include sinus congestion, no symptoms of sore throat, no symptomsof swollen glands, no symptoms of vomiting, no symptoms of weakness, no symptoms of wheezing. The symptoms have been intermittent. No general therapies have been tried, no medication has been taken. CURRENT PROBLEM LIST: 300.00 ANXIETY 477.9 RHINITIS ALLERGIC UNSPECIFIED 564.00 CONSTIPATION CURRENT MEDICATION LIST: VIVELLE-DOT TRANSDERMAL PATCH BIWEEKLY 0.075 MG/24HR, 1 every 3 days MIRALAX ORAL POWDER, prn XANAX ORAL TABLET 0.25 MG, prn PEPCID AC ORAL TABLET 10 MG, 1 Two Times A Day CURRENT [...] unremarkable. Hearing grossly normal. NOSE (AND SINUS): YELLOW NASAL DISCHARGE NOTED BILATERALLY, no polyps noted, TURBINATES RED BILATERALLY, no ulceration of the nasal airways, no vesicles of the nasal airways. ORAL: Inspection of gums, lips, palate, and [...] lymphadenopathy in the neck, axillae, or groin. NEUROLOGIC: CRANIAL NERVES: beef specialist II-XII grossly intact. PSYCHIATRIC: Judgment appropriate. Oriented. Normal memory. Mood and affect appropriate. ASSESSMENT/PLAN: 461.0-ACUTE SINUSITIS ASSESSMENT: the pt has an acute sinusitis and will be tx with the meds below. the pt will cont withthe zyrtec and saline nose irrigation. MEDICATIONS: BIAXIN ORAL TABLET 500 MG, 1 Two Times A Day, 20 Dispensed, status: NEW PRESCRIPTION, 09/30/2005. MUCINEX DM ORAL TABLET 12 HR 30-600 MG, 1 Two Times A Day, 20 Dispensed, status: NEW PRESCRIPTION, 09/30/2005. RETURN VISIT : Instructed to call if not improving. Instructed to return earlier than the next regularly scheduled appointment if not improving. Electronically Signed by: Randal Clark MD on Friday, September 30, 2005 documented in this encounter Plan of Treatment Upcoming Encounters Date Type Department Care Team (Late st Contact Info) Description 07/31/2024 5:00 PM CDT Appointment [facility] Therapy [address] [address] Chandler Spivey PA [address] [address] Maegan Duncan, Physical Therapist 08/02/2024 5:00 PM CDT Appointment [facility] Neuro [address] [address] Jonathan Cortez MD [address] [facility] [address] [place], [place] [address] -x0 (Work) Sarah Estrada, DOOR CORE ASSEMBLER 08/09/2024 5:00 PM CDT Appointment [address] [place] [address] Chandler Spivey PA [address] [place] [address] Maegan Duncan, Physical Therapist 08/30/2024 3:30 PM CDT Office Visit [facility] Internal Medicine Medical [place] A [facility] [address] [facility] [address] [address] Juventino Howe MD [address] [facility] [address] [place] [address] 10/31/2024 3:00 PM CDT Office Visit [facility] Pulmonology [facility] [address] [facility] [address] [place] [address] Everett Cam MD [address] [facility] [address] [place] [address] 12/28/2024 2:45 PM RESOURCE SPECIALIST Office Visit [facility] Endocrinology [address] [facility] [address] [place] [address] Sheldon Canales MD [address] [facility] [address] [place] [address] 02/26/2025 3:10 PM RESOURCE SPECIALIST Office Visit [facility] Gastroenterology [facility] [address] [facility] 1200 [place] [address] Suzette Cody MD [address] [facility] 1200 [place] [address] documented as of this encounter Visit Diagnoses Not on filedocumented in this encounter Additional Health Concerns Infection Onset Date Last Indicated Resolved Time R/O Respiratory 01/11/2023 01/11/2023 01/11/2023 7 :48 PM RESOURCE SPECIALIST R/O Respiratory 02/19/2024 02/19/2024 02/19/2024 1 1:21 AM RESOURCE SPECIALIST Influenza 02/19/2024 02/19/2024 02/26/2024 1:16 AM RESOURCE SPECIALIST R/O Respiratory 03/13/2024 03/13/2024 03/13/2024 4 :20 PM RESOURCE SPECIALIST Human Metapneumovirus 03/13/2024 03/13/20242024 1:16 AM RESOURCE SPECIALIST R/O C. diff 03/13/2024 03/13/2024 03/14/2024 8:00 PM RESOURCE SPECIALIST R/O C. diff 03/14/2024 03/14/2024 03/15/2024 6:17 PM RESOURCE SPECIALIST documented as of this encounter Care Teams Senior Software Developer Relationship Specialty Start Date End Date Juventino Howe MD [address] [facility] [address] [place] [address] PCP - General Internal Medicine 11/04/11 documented as of this encounter
== END 2024-07-26 17:15 | disposition home or self-care (01) ==
PROVIDERS: Emergency Provider Nurse Practitioner Family
DX: J45.901 Unspecified asthma with (acute) exacerbation (principal); J44.9 Chronic obstructive pulmonary disease, unspecified
CPT/HCPCS: 94640; 96372; 99213; G0463; J2919

== ENCOUNTER 2024-12-07 18:00 | Emergency (ER) | payer OTHER, SELFPAY ==
--- OUTSIDE RECORDS SUMMARY | 2024-12-06 15:30 | XMS_ITS | Encounter Summary ---
Author Organization [facility] Address [address] [place] [address] Care Team Providers Care Internal Sales Name Role Phone Juventino Howe MD Primary Care Provider [phone] Reason for Referral * CT Scan (Routine) - Pending Review Specialty Diagnoses / Procedures Referred By Jackelyn christensen Referred To Contact Diagnoses LUQ abdominal pain Procedures CT [place]OM[place] [address] [place] [address] Phone: tel: fax: Referral ID Status Reason Start Date Expiration Date V isits Requested Visits Authorized [id number] Pending Review 12/06/2024 01/06/2026 1 1 Encounter Details Date Type Department Care Team (Late st Contact Info) Description 12/06/2024 3:30 PM CDT Office Visit [facility] Colon and Rectal Surgery [address] [place] [address] [place] [address] [place] [address] LUQ abdominal pain (Primary Dx); High-tone pelvic floor dysfunction in female Social History Tobacco Use Types Packs/Day Years [...] who hurts you emotionally and/or physically? 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 Not on file Not on file Not on file Not on file Not on file Not on file Not on file Not on file Not on file Not on file documented as of this encounter Last Filed Vital Signs Vital Sign Reading Time Taken Comments Blood Pressure 132/78 12/06/2024 11:00 AM CDT Pulse - - Temperature - - Respiratory Rate - - Oxygen Saturation - - Inhaled Oxygen Concentration - - Weight 73.8 kg (162 lb 9.6 oz) 12/06/2024 11:00 AM CDT Height 157.5 cm (5' 2) 12/06/2024 11:00 AM CDT Body Mass Index 29.74 12/06/2024 11:00 AM CDT documented in this encounter Plan of Treatment Upcoming Encounters Date Type Department Care Team (Late st Contact Info) Description 12/12/2024 4:30 PM CDT Appointment [facility] Therapy Services [place] [address] [facility] 145 [place] [address] [place] [address] [place] [address] Maegan Duncan, Physical Therapist 12/19/2024 9:30 AM BONE PLANT SUPERVISOR Appointment [facility] Radiology S [facility] [address] [place] [address] Anselmo Durham MD [address] [facility] [address] [place] [address] 12/19/2024 10:40 AM BONE PLANT SUPERVISOR Office Visit [facility] EAR, NOSE AND THROAT [facility] [address] [facility] [address] [place] [address] Anselmo Durham MD [address] [facility] [address] [place] [address] 12/20/2024 2:00 PM BONE PLANT SUPERVISOR Office Visit [facility] Internal Medicine Medical [place] A [address] [facility] [address] [address] Juventino Howe MD [address] [facility] [address] [place] [address] 12/28/2024 2:45 PM BONE PLANT SUPERVISOR Office Visit [facility] Endocrinology [address] [facility] [address] [place] [address] Sheldon Canales MD [address] [facility] [address] [place] [address] 01/04/2025 2:00 PM BONE PLANT SUPERVISOR Office Visit [facility] Neurology [address] [facility] [address] [place] [address] Juventino Howe MD [address] [facility] [address] [place] [address] Bobbi Davalos MD [address] [facility] [address] [place] [address] 02/26/2025 3:10 PM BONE PLANT SUPERVISOR Office Visit [facility] Gastroenterology [place] [address] [facility] [address] [place] [address] Suzette Cody MD [address] [place] [address] 03/28/2025 2:30 PM BONE PLANT SUPERVISOR Office Visit [facility] Colon and Rectal Surgery [address] [place] [address] [place] [address] [place] [address] 10/30/2025 3:00 PM CDT Office Visit [facility] Pulmonology [facility] [address] [place] [address] Everett Cam MD [address] [place] [address] Scheduled Orders Name Type Priority Associated Diagnoses Orde r Schedule CT ABDOMEN PELVIS W CONTRAST Imaging Routine LUQ abdominal pain 1 Occurrences starting 12/06/2024 until 12/06/2025 documented as of this encounter Visit Diagnoses Diagnosis LUQ abdominal pain- Primary Abdominal pain, left upper quadrant High-tone pelvic floor dysfunction in female documented in this encounter Care Teams Internal Sales Relationship Specialty Start Date End Date Juventino Howe MD [address] [place] [address] PCP - General Internal Medicine 11/04/11 documented as of this encounter
[2024-12-07 18:04] VITALS: BP 125/55; PULSE 92; RESP 16; TEMP 36.6; O2SAT 98
--- OUTSIDE RECORDS SUMMARY | 2024-12-07 18:04 | XMS_ITS | Patient Health Record ---
Author Organization [employer] Address [address] [facility]. [address] [place] [address] Care Team Providers Care Multiskill Operator Name Role Phone Carley ANDRE, Juventino Primary Care Provider UnavailAdi Chváez Unavailable [phone] Reason For Referral No Information Plan Of Treatment No Information Insurance Providers Payer Name Payer Address Payer Phone Subscriber Number Group Number Insured Name Patient Relationship to Insured Coverage Start Date Coverage End Date Blue Access PPO [address] [place] [address] [id number] Duyen King Self - patient is the insured
--- OUTSIDE RECORDS SUMMARY | 2024-12-07 18:04 | XMS_ITS | Encounter Summary ---
Author Organization [facility] Address [address] [place] [address] Care Team Providers Care Ecological Modeler Name Role Phone Juventino Howe MD Primary Care Provider [phone] Encounter Details Date Type Department Care Team (Late st Contact Info) Description 02/03/2007 Outpatient Historical [facility] Gynecologic Oncology [address] [place] [address] Gadiel Price Jr., MD NO ADDRESS ON FILE Social History Tobacco Use Types Packs/Day Years Used Date Smoking Tobacco: Never Assessed Comments Unknown Sex and Gender Information Value Date Recorded Sex Assigned at Not on file Legal Sex Female 3:38 AM CARRIER LOADER Gender Identity Not on file Sexual Orientation Not on file documented as of this encounter Plan of Treatment Upcoming Encounters Date Type Department Care Team (Late st Contact Info) Description 12/12/2024 4:30 PM CDT Appointment [facility] Therapy Services [place] 755 [facility] [address] [place] [address] Cata Terry, [place] [address] [place], [place] [id number] Maegan Duncan, Physical Therapist 12/19/2024 9:30 AM CARRIER LOADER Appointment [facility] [address] [facility] [address] [place] [address] Anselmo Durham MD 607 [facility] [address] [place] [address] 12/19/2024 10:40 AM CARRIER LOADER Office Visit [facility] EAR, NOSE AND THROAT [facility] [address] [facility] [address] [place] [address] Anselmo Durham MD 607 [facility] [address] [place] [address] 12/20/2024 2:00 PM CARRIER LOADER Office Visit [facility] Internal Medicine Medical [place] A [address] [address] Juventino Howe MD [address] [place] [address] 12/28/2024 2:45 PM CARRIER LOADER Office Visit [facility] Endocrinology [address] [place] [address] Sheldon Canales MD [address] [facility] [address] [place] [address] 01/04/2025 2:00 PM CARRIER LOADER Office Visit [facility] Neurology [address] [facility] [address] [place] [address] Juventino Howe MD [address] [place] [address] Bobbi Davalos MD [address] [facility] [address] [place] [address] 02/26/2025 3:10 PM CARRIER LOADER Office Visit [facility] Gastroenterology [place] [address] [facility] [address] [place] [address] Suzette Cody MD [address] [place] [address] 03/28/2025 2:30 PM CARRIER LOADER Office Visit [facility] Colon and Rectal Surgery [address] [place] [address] [place] [address] [place] [address] 10/30/2025 3:00 PM CDT Office Visit [facility] Pulmonology [facility] [address] [facility] [address] [address] [place] [address] Everett Cam MD [address] [place] [address] documented as of this encounter Visit Diagnoses Not on filedocumented in this encounter Additional Health Concerns Infection Onset Date Last Indicated Resolved Time R/O Respiratory 01/11/2023 01/11/2023 01/11/2023 7 :48 PM CARRIER LOADER R/O Respiratory 02/19/2024 02/19/2024 02/19/2024 1 1:21 AM CARRIER LOADER Influenza 02/19/2024 02/19/2024 02/26/2024 1:16 AM CARRIER LOADER R/O Respiratory 03/13/2024 03/13/2024 03/13/2024 4 :20 PM CARRIER LOADER Human Metapneumovirus 03/13/2024 03/13/20242024 1:16 AM CARRIER LOADER R/O C. diff 03/13/2024 03/13/2024 03/14/2024 8:00 PM CARRIER LOADER R/O C. diff 03/14/2024 03/14/2024 03/15/2024 6:17 PM CARRIER LOADER documented as of this encounter Care Teams Ecological Modeler Relationship Specialty Start Date End Date Juventino Howe MD [address] [place] [address] PCP - General Internal Medicine 11/04/11 documented as of this encounter
--- OUTSIDE RECORDS SUMMARY | 2024-12-07 18:04 | XMS_ITS | Encounter Summary ---
Author Organization [facility] Address [address] [place] [address] Care Team Providers Care Police Radio Dispatcher Name Role Phone Juventino Howe MD Primary Care Provider [phone] Encounter Details Date Type Department Care Team (Late st Contact Info) Description 10/26/2005 Orders Only [facility] Diabetic [facility] [id number] [place] [address]. [address] [place] [address] Randal Clark MD [address] [place] [address] Social History Tobacco Use Types Packs/Day Years Used Date Smoking Tobacco: Never Assessed Comments Unknown Sex and Gender Information Value Date Recorded Sex Assigned at Not on file Legal Sex Female 3:38 AM LABORATORY APPARATUS GLASS GRINDER Gender Identity Not on file Sexual Orientation Not on file documented as of this encounter Progress Notes * Randal Clark MD - 11/29/2007 5:54 PM CDT BLOOD PRESSURE: 120/80 Right Arm Sitting PULSE: 76 Right Radial, Regular RESPIRATIONS: 20 WEIGHT: 146lbs TEMPERATURE: 97.2??f Oral HEIGHT: 62 1/4in NURSE NAME: Hanna Wellignton S ALLERGIES: Allergies are as listed. MEDICATIONS: [...] subcutaneous nodules or tightening. NEUROLOGIC: CRANIAL NERVES: manager secondary II-XII grossly intact. ASSESSMENT/PLAN: 477.9-RHINITIS ALLERGIC UNSPECIFIED [...] the pt will be referred to an analog ic design engineer dr bruce teran for eval and tx [...] Info) Description 12/12/2024 4:30 PM CDT Appointment [facility] Therapy [place] [id number] [phone] Cata Terry, [place] [address] [place], [place] [address] Maegan Duncan, Physical Therapist 12/19/2024 9:30 AM LABORATORY APPARATUS GLASS GRINDER Appointment [facility] S [facility] [address] [place] [address] Anselmo Durham MD [address] [address] 12/19/2024 10:40 AM LABORATORY APPARATUS GLASS GRINDER Office Visit [facility] EAR, NOSE AND THROAT [facility] [address] [facility] [address] [place] [address] Anselmo Durham MD [address] [facility] [address] [place] [address] 12/20/2024 2:00 PM LABORATORY APPARATUS GLASS GRINDER Office Visit [facility] Internal Medicine Medical [place] A [facility] [address] [facility] [address] [address] Juventino Howe MD [address] [facility] [address] [place] [address] 12/28/2024 2:45 PM LABORATORY APPARATUS GLASS GRINDER Office Visit [facility] Endocrinology [address] [place] [address] Sheldon Canales MD [address] [facility] [address] [place] [address] 01/04/2025 2:00 PM LABORATORY APPARATUS GLASS GRINDER Office Visit [facility] Neurology [address] [place] [address] Juventino Howe MD [address] [place] [address] Bobbi Davalos MD [address] [place] [address] 02/26/2025 3:10 PM LABORATORY APPARATUS GLASS GRINDER Office Visit [facility] Gastroenterology [place] [address] [facility] [address] [place] [address] Suzette Cody MD [address] [place] [address] [place] [address] 03/28/2025 2:30 PM LABORATORY APPARATUS GLASS GRINDER Office Visit [facility] Colon and Rectal Surgery [address] [facility] [address] [place] [address] [place] [address] [place] [address] 10/30/2025 3:00 PM CDT Office Visit [facility] Pulmonology [facility] [address] [place] [address] Everett Cam MD [address] [place] [address] documented as of this encounter Visit Diagnoses Not on filedocumented in this encounter Additional Health Concerns Infection Onset Date Last Indicated Resolved Time R/O Respiratory 01/11/2023 01/11/2023 01/11/2023 7 :48 PM LABORATORY APPARATUS GLASS GRINDER R/O Respiratory 02/19/2024 02/19/2024 02/19/2024 1 1:21 AM LABORATORY APPARATUS GLASS GRINDER Influenza 02/19/2024 02/19/2024 02/26/2024 1:16 AM LABORATORY APPARATUS GLASS GRINDER R/O Respiratory 03/13/2024 03/13/2024 03/13/2024 4 :20 PM LABORATORY APPARATUS GLASS GRINDER Human Metapneumovirus 03/13/2024 03/13/20242024 1:16 AM LABORATORY APPARATUS GLASS GRINDER R/O C. diff 03/13/2024 03/13/2024 03/14/2024 8:00 PM LABORATORY APPARATUS GLASS GRINDER R/O C. diff 03/14/2024 03/14/2024 03/15/2024 6:17 PM LABORATORY APPARATUS GLASS GRINDER documented as of this encounter Care Teams Police Radio Dispatcher Relationship Specialty Start Date End Date Juventino Howe MD [address] [place] [address] PCP - General Internal Medicine 11/04/11 documented as of this encounter
--- OUTSIDE RECORDS SUMMARY | 2024-12-07 18:04 | XMS_ITS | Encounter Summary ---
Author Organization [facility] Address [address] [place] [address] Care Team Providers Care Certified Prosthetist Vice President Name Role Phone Juventino Howe MD Primary Care Provider Encounter Details Date Type Department Care Team (Late st Contact Info) Description 08/30/2006 Outpatient Historical [facility] Lynne Escobar MD [address] [place] [address] Unspecified Functional Disorder of Intestine (Primary Dx) Social History Tobacco Use Types Packs/Day Years Used Date Smoking Tobacco: Never Assessed Comments Unknown Sex and Gender Information Value Date Recorded Sex Assigned at Not on file Legal Sex Female 3:38 AM BILLIARD PLAYER Gender Identity Not on file Sexual Orientation Not on file documented as of this encounter Plan of Treatment Upcoming Encounters Date Type Department Care Team (Late Contact Info) Description 12/12/2024 4:30 PM CDT Appointment [facility] Therapy Services [place] [address] [facility] 145 [place] [address] Cata Terry, [place] [address] [place] [address] Maegan Duncan, Physical Therapist 12/19/2024 9:30 AM BILLIARD PLAYER Appointment [facility] Radiology [address] [place] [address] Anselmo Durham MD 607 [facility] 2300 [place] [address] 12/19/2024 10:40 AM BILLIARD PLAYER Office Visit [facility] EAR, NOSE AND THROAT [facility] [address] [place] [address] Anselmo Durham MD [address] [facility] [address] [place] [address] 12/20/2024 2:00 PM BILLIARD PLAYER Office Visit [facility] Internal Medicine Medical [place] A [address] [address] Juventino Howe MD [address] [place] [address] 12/28/2024 2:45 PM BILLIARD PLAYER Office Visit [facility] Endocrinology [address] [place] [address] Sheldon Canales MD [address] [facility] [address] [place] [address] 01/04/2025 2:00 PM BILLIARD PLAYER Office Visit [facility] Neurology [address] [place] [address] Juventino Howe MD [address] [place] [address] Bobbi Davalos MD [address] [place] [address] 02/26/2025 3:10 PM BILLIARD PLAYER Office Visit [facility] Gastroenterology [place] [address] [place] [address] Suzette Cody MD [address] [place] [address] [place] [address] 03/28/2025 2:30 PM BILLIARD PLAYER Office Visit [facility] Colon and Rectal Surgery [address] [place] [address] [place] [address] [place] [address] 10/30/2025 3:00 PM CDT Office Visit [facility] Pulmonology [facility] [address] [facility] [address] [place] [address] Everett Cam MD [address] [facility] [address] [place] [address] documented as of this encounter Visit Diagnoses Diagnosis Unspecified functional disorder of intestine- Primary documented in this encounter Additional Health Concerns Infection Onset Date Last Indicated Resolved Time R/O Respiratory 01/11/2023 01/11/2023 01/11/2023 7 :48 PM BILLIARD PLAYER R/O Respiratory 02/19/2024 02/19/2024 02/19/2024 1 1:21 AM BILLIARD PLAYER Influenza 02/19/2024 02/19/2024 02/26/2024 1:16 AM BILLIARD PLAYER R/O Respiratory 03/13/2024 03/13/2024 03/13/2024 4 :20 PM BILLIARD PLAYER Human Metapneumovirus 03/13/2024 03/13/20242024 1:16 AM BILLIARD PLAYER R/O C. diff 03/13/2024 03/13/2024 03/14/2024 8:00 PM BILLIARD PLAYER R/O C. diff 03/14/2024 03/14/2024 03/15/2024 6:17 PM BILLIARD PLAYER documented as of this encounter Care Teams Certified Prosthetist Vice President Relationship Specialty Start Date End Date Juventino Howe MD [address] [facility] [address] [place] [address] PCP - General Internal Medicine 11/04/11 documented as of this encounter
--- OUTSIDE RECORDS SUMMARY | 2024-12-07 18:04 | XMS_ITS | Encounter Summary ---
Author Organization [facility] Address [address] [place] [address] Care Team Providers Care Hammer Fitter Name Role Phone Juventino Howe MD Primary Care Provider [phone] Encounter Details Date Type Department Care Team (Late Contact Info) Description 09/30/2005 Outpatient Historical [facility] Internal Medicine [facility] [address] [facility] [address] [place] [address] Randal Clark MD [address] [place] [address] Social History Tobacco Use Types Packs/Day Years Used Date Smoking Tobacco: Never Assessed Comments Unknown Sex and Gender Information Value Date Recorded Sex Assigned at Not on file Legal Sex Female 3:38 AM CUSTOM PROTECTION OFFICER Gender Identity Not on file Sexual Orientation [...] Info) Description 12/12/2024 4:30 PM CDT Appointment [facility] Therapy Services [place] [address] [facility] [address] [place] [address] Cata Terry, [place] [address] [place] [address] Maegan Duncan, Physical Therapist 12/19/2024 9:30 AM CUSTOM PROTECTION OFFICER Appointment [facility] S [facility] [address] [place] [address] Anselmo Durham MD 607 [facility] [address]00 [place] [address] 12/19/2024 10:40 AM CUSTOM PROTECTION OFFICER Office Visit [facility] E[facility] [address] [facility] [address] [place] [address] Anselmo Durham MD 607 [facility] [address] [place] [address] 12/20/2024 2:00 PM CUSTOM PROTECTION OFFICER Office Visit [facility] Internal Medicine Medical [place] A [address] [facility] [address] [address] Juventino Howe MD [address] [facility] [address] [place] [address] 12/28/2024 2:45 PM CUSTOM PROTECTION OFFICER Office Visit [facility] Endocrinology [address] [facility] [address] [place] [address] Sheldon Canales MD [address] [facility] [address] [place] [address] 01/04/2025 2:00 PM CUSTOM PROTECTION OFFICER Office Visit [facility] Neurology [address] [facility] [address] [place] [address] Juventino Howe MD [address] [facility] [address] [place] [address] Bobbi Davalos MD [address] [place] [address] 02/26/2025 3:10 PM CUSTOM PROTECTION OFFICER Office Visit [facility] Gastroenterology [place] [address] [address] [place] [address] Suzette Cody MD [address] [facility] [address] [place] [address] 03/28/2025 2:30 PM CUSTOM PROTECTION OFFICER Office Visit [facility] Colon and Rectal Surgery [address] [place] [address] [place] [address] [place] [address] 10/30/2025 3:00 PM CDT Office Visit [facility] Pul[facility]ology [facility] [address] [place] [address] Everett Cam MD [address] [place] [address] documented as of this encounter Visit Diagnoses Not on filedocumented in this encounter Additional Health Concerns Infection Onset Date Last Indicated Resolved Time R/O Respiratory 01/11/2023 01/11/2023 01/11/2023 7 :48 PM CUSTOM PROTECTION OFFICER R/O Respiratory 02/19/2024 02/19/2024 02/19/2024 1 1:21 AM CUSTOM PROTECTION OFFICER Influenza 02/19/2024 02/19/2024 02/26/2024 1:16 AM CUSTOM PROTECTION OFFICER R/O Respiratory 03/13/2024 03/13/2024 03/13/2024 4 :20 PM CUSTOM PROTECTION OFFICER Human Metapneumovirus 03/13/2024 03/13/20242024 1:16 AM CUSTOM PROTECTION OFFICER R/O C. diff 03/13/2024 03/13/2024 03/14/2024 8:00 PM CUSTOM PROTECTION OFFICER R/O C. diff 03/14/2024 03/14/2024 03/15/2024 6:17 PM CUSTOM PROTECTION OFFICER documented as of this encounter Care Teams Hammer Fitter Relationship Specialty Start Date End Date Juventino Howe MD [address] [facility] [address] [place] [address] PCP - General Internal Medicine 11/04/11 documented as of this encounter
--- OUTSIDE RECORDS SUMMARY | 2024-12-07 18:04 | XMS_ITS | Encounter Summary ---
Author Organization [facility] Address [address] [place] [address] Care Team Providers Care Membership Coordinator Name Role Phone Juventino Howe MD Primary Care Provider [phone] Encounter Details Date Type Department Care Team (Latest Contact Info) Description 12/30/2005 Outpatient Historical [facility] [address] Lynne Escobar MD [address] [place] [address] Unspecified Constipation (Primary Dx) Social History Tobacco Use Types Packs/Day Years Used Date Smoking Tobacco: Never Assessed Comments Unknown Sex and Gender Information Value Date Recorded Sex Assigned at Not on file Legal Sex Female 3:38 AM MENTAL HEALTH WORKER Gender Identity Not on file Sexual Orientation Not on file documented as of this encounter Plan of Treatment Upcoming Encounters Date Type Department Care Team (Late st Contact Info) Description 12/12/2024 4:30 PM CDT Appointment [facility] Therapy Services [place] 7[address] [facility] 145 [place] [address] [place] [address] [place] [address] Maegan Duncan, Physical Therapist 12/19/2024 9:30 AM MENTAL HEALTH WORKER Appointment [facility] Rad[facility] S [facility] [address] [place] [address] Anselmo Durham MD 607 [facility] 23[address] [place] [address] 12/19/2024 10:40 AM MENTAL HEALTH WORKER Office Visit [facility] EAR, NOSE AND THROAT [facility] [address] [place] [address] Anselmo Durham MD [address] [place] [address] 12/20/2024 2:00 PM MENTAL HEALTH WORKER Office Visit [facility] Internal Medicine Medical [place] A [address] [address] Juventino Howe MD [address] [place] [address] 12/28/2024 2:45 PM MENTAL HEALTH WORKER Office Visit [facility] Endocrinology [address] [place] [address] Sheldon Canales MD [address] [facility] [address] [place] [address] 01/04/2025 2:00 PM MENTAL HEALTH WORKER Office Visit [facility] Neurology [address] [place] [address] Juventino Howe MD [address] [place] [address] Bobbi Davalos MD [address] [place] [address] 02/26/2025 3:10 PM MENTAL HEALTH WORKER Office Visit [facility] Gastroenterology [place] [address] [place] [address] Suzette Cody MD [address] [place] [address] 03/28/2025 2:30 PM MENTAL HEALTH WORKER Office Visit [facility] Colon and Rectal Surgery [address] [place] [address] [place] [address] [place] [address] 10/30/2025 3:00 PM CDT Office Visit [facility] Pulmonology [facility] [address] [facility] [address] [place] [address] Everett Cam MD [address] [facility] [address] [place] [address] documented as of this encounter Procedures Procedure Name Priority Date/Time Associated Diagnosis Comments BASIC METABOLIC PANEL Routine 12/30/2005 5:10 PM MENTAL HEALTH WORKER documented in this encounter Results * BASIC METABOLIC PANEL (12/30/2005 5:10 PM MENTAL HEALTH WORKER) GLUCOSE 83 65 - 99 mg/dL INTERFACE [...] 30 mmol/L INTERFACE SYSTEM 12/30/2005 5:10 PM MENTAL HEALTH WORKER us Lynne Escobar MD CHEMISTRY ORDERABLES Final Resu lt INTERFACE SYSTEM Refer to clinic/hospital department documented in this encounter Visit Diagnoses Diagnosis Unspecified constipation- Primary documented in this encounter Additional Health Concerns Infection Onset Date Last Indicated Resolved Time R/O Respiratory 01/11/2023 01/11/2023 01/11/2023 7 :48 PM MENTAL HEALTH WORKER R/O Respiratory 02/19/2024 02/19/2024 02/19/2024 1 1:21 AM MENTAL HEALTH WORKER Influenza 02/19/2024 02/19/2024 02/26/2024 1:16 AM MENTAL HEALTH WORKER R/O Respiratory 03/13/2024 03/13/2024 03/13/2024 4 :20 PM MENTAL HEALTH WORKER Human Metapneumovirus 03/13/2024 03/13/20242024 1:16 AM MENTAL HEALTH WORKER R/O C. diff 03/13/2024 03/13/2024 03/14/2024 8:00 PM MENTAL HEALTH WORKER R/O C. diff 03/14/2024 03/14/2024 03/15/2024 6:17 PM MENTAL HEALTH WORKER documented as of this encounter Care Teams Membership Coordinator Relationship Specialty Start Date End Date Juventino Howe MD [address] [facility] [address] [place] [address] PCP - General Internal Medicine 11/04/11 documented as of this encounter
--- OUTSIDE RECORDS SUMMARY | 2024-12-07 18:04 | XMS_ITS | Encounter Summary ---
Author Organization [facility] Address [address] [place] [address] Care Team Providers Care Order Planner Name Role Phone Juventino Howe MD Primary Care Provider [phone] Encounter Details Date Type Department Care Team (Late st Contact Info) Description 10/14/2006 Outpatient Historical [facility] Lynne Escobar MD [address] [place] [address] Abdominal Pain, Right Lower Quadrant (Primary Dx) Social History Tobacco Use Types Packs/Day Years Used Date Smoking Tobacco: Never Assessed Comments Unknown Sex and Gender Information Value Date Recorded Sex Assigned at Not on file Legal Sex Female 3:38 AM DISASTER OR DAMAGE CONTROL SPECIALIST Gender Identity Not on file Sexual Orientation Not on file documented as of this encounter Plan of Treatment Upcoming Encounters Date Type Department Care Team (Late st Contact Info) Description 12/12/2024 4:30 PM CDT Appointment [facility] [place] 755 [facility] 145 [place] [address] Cata Terry, [place]AR[place] [address] [place] [address] Maegan Duncan, Physical Therapist 12/19/2024 9:30 AM DISASTER OR DAMAGE CONTROL SPECIALIST [facility]ment [facility] Rad[facility] [address] [place] [address] Anselmo Durham MD 607 [facility] [address]00 [place] [address] 12/19/2024 10:40 AM DISASTER OR DAMAGE CONTROL SPECIALIST Office Visit [facility] EAR, NOSE AND THROAT [facility] CANCER CENTER [address] [place] [address] Anselmo Durham MD 607 [facility] [address] [place] [address] 12/20/2024 2:00 PM DISASTER OR DAMAGE CONTROL SPECIALIST Office Visit [facility] Internal Medicine Medical [place] [address] [address] Juventino Howe MD [address] [place] [address] 12/28/2024 2:45 PM DISASTER OR DAMAGE CONTROL SPECIALIST Office Visit [facility] Endocrinology [address] [place] [address] Sheldon Canales MD [address] [place] [address] 01/04/2025 2:00 PM DISASTER OR DAMAGE CONTROL SPECIALIST Office Visit [facility] Neurology [address] [place] [address] Juventino Howe MD [address] [place] [address] Bobbi Davalos MD [address] [place] [address] 02/26/2025 3:10 PM DISASTER OR DAMAGE CONTROL SPECIALIST Office Visit [facility] Gastroenterology [address] [place] [address] Suzette Cody MD [address] [place] [address] 03/28/2025 2:30 PM DISASTER OR DAMAGE CONTROL SPECIALIST Office Visit [facility] Colon and Rectal Surgery [address] [place] [address] [place] [address] [place] [address] 10/30/2025 3:00 PM CDT Office Visit [facility] [address] [facility] [address] [place] [address] Everett Cam MD [address] [place] [address] documented as of this encounter Visit Diagnoses Diagnosis Abdominal pain, right lower quadrant- Primary documented in this encounter Additional Health Concerns Infection Onset Date Last Indicated Resolved Time R/O Respiratory 01/11/2023 01/11/2023 01/11/2023 7 :48 PM DISASTER OR DAMAGE CONTROL SPECIALIST R/O Respiratory 02/19/2024 02/19/2024 02/19/2024 1 1:21 AM DISASTER OR DAMAGE CONTROL SPECIALIST Influenza 02/19/2024 02/19/2024 02/26/2024 1:16 AM DISASTER OR DAMAGE CONTROL SPECIALIST R/O Respiratory 03/13/2024 03/13/2024 03/13/2024 4 :20 PM DISASTER OR DAMAGE CONTROL SPECIALIST Human Metapneumovirus 03/13/2024 03/13/20242024 1:16 AM DISASTER OR DAMAGE CONTROL SPECIALIST R/O C. diff 03/13/2024 03/13/2024 03/14/2024 8:00 PM DISASTER OR DAMAGE CONTROL SPECIALIST R/O C. diff 03/14/2024 03/14/2024 03/15/2024 6:17 PM DISASTER OR DAMAGE CONTROL SPECIALIST documented as of this encounter Care Teams Order Planner Relationship Specialty Start Date End Date Juventino Howe MD [address] [place] [address] PCP - General Internal Medicine 11/04/11 documented as of this encounter
--- OUTSIDE RECORDS SUMMARY | 2024-12-07 18:04 | XMS_ITS | Encounter Summary ---
Author Organization [facility] Address [address] [place] [address] Care Team Providers Care Senior Management Consultant Name Role Phone Juventino Howe MD Primary Care Provider [phone] Encounter Details Date Type Department Care Team (Latest Contact Info) Description 09/06/2006 Outpatient Historical [facility] Lynne Navarro MD [address] [place] [address] Other Constipation (Primary Dx) Social History Tobacco Use Types Packs/Day Years Used Date Smoking Tobacco: Never Assessed Comments Unknown Sex and Gender Information Value Date Recorded Sex Assigned at Not on file Legal Sex Female 3:38 AM SHANK BURNISHER Gender Identity Not on file Sexual Orientation Not on file documented as of this encounter Plan of Treatment Upcoming Encounters Date Type Department Care Team (Late st Contact Info) Description 12/12/2024 4:30 PM CDT Appointment [facility] Therapy Services [address] [place] [address] Cata Terry, [place] [address] [place] [address] Maegan Duncan, Physical Therapist 12/19/2024 9:30 AM SHANK BURNISHER Appointment [facility] Radiology S [facility] [address] [place] [address] Anselmo Durham MD 607 [facility] [address] [place] [address] 12/19/2024 10:40 AM SHANK BURNISHER [facility] E[facility]SE AND THROAT [facility] CANCER CENTER [address] [place] [address] Anselmo Durham MD [address] [place] [address] 12/20/2024 2:00 PM SHANK BURNISHER Office Visit [facility] Internal Medicine Medical [place] A [address] [address] Juventino Howe MD [address] [place] [address] 12/28/2024 2:45 PM SHANK BURNISHER Office Visit [facility] Endocrinology [address] [place] [address] Sheldon Canales MD [address] [place] [address] 01/04/2025 2:00 PM SHANK BURNISHER Office Visit [facility] Neurology [address] [place] [address] Juventino Howe MD [address] [place] [address] Bobbi Davalos MD [address] [place] [address] 02/26/2025 3:10 PM SHANK BURNISHER Office Visit [facility] Gastroenterology [address] [address] [place] [address] Suzette Cody MD [address] [place] [address] 03/28/2025 2:30 PM SHANK BURNISHER Office Visit [facility] Colon and Rectal Surgery [address] [place] [address] [place] [address] [place] [address] 10/30/2025 3:00 PM CDT Office Visit [facility] Pulmonology [facility] [address] [facility] [address] [place] [address] Everett Cam MD [address] [facility] [address] [place] [address] documented as of this encounter Visit Diagnoses Diagnosis Other constipation- Primary documented in this encounter Additional Health Concerns Infection Onset Date Last Indicated Resolved Time R/O Respiratory 01/11/2023 01/11/2023 01/11/2023 7 :48 PM SHANK BURNISHER R/O Respiratory 02/19/2024 02/19/2024 02/19/2024 1 1:21 AM SHANK BURNISHER Influenza 02/19/2024 02/19/2024 02/26/2024 1:16 AM SHANK BURNISHER R/O Respiratory 03/13/2024 03/13/2024 03/13/2024 4 :20 PM SHANK BURNISHER Human Metapneumovirus 03/13/2024 03/13/20242024 1:16 AM SHANK BURNISHER R/O C. diff 03/13/2024 03/13/2024 03/14/2024 8:00 PM SHANK BURNISHER R/O C. diff 03/14/2024 03/14/2024 03/15/2024 6:17 PM SHANK BURNISHER documented as of this encounter Care Teams Senior Management Consultant Relationship Specialty Start Date End Date Juventino Howe MD [address] [facility] [address] [place] [address] PCP - General Internal Medicine 11/04/11 documented as of this encounter
--- OUTSIDE RECORDS SUMMARY | 2024-12-07 18:04 | XMS_ITS | Encounter Summary ---
Author Organization [facility] Address [address] [place] [address] Care Team Providers Care Seed Service Advisor Name Role Phone Juventino Howe MD Primary Care Provider [phone] Encounter Details Date Type Department Care Team (Late Contact Info) Description 10/26/2005 Outpatient Historical [facility] Internal Medicine [facility] [address] [facility] [address] [place] [address] Randal Clark MD [address] [place] [address] Social History Tobacco Use Types Packs/Day Years Used Date Smoking Tobacco: Never Assessed Comments Unknown Sex and Gender Information Value Date Recorded Sex Assigned at Not on file Legal Sex Female 3:38 AM ROVING HAND Gender Identity Not on file Sexual [...] Info) Description 12/12/2024 4:30 PM CDT Appointment [facility] Therapy Services [place] 755 [facility] 145 [place] [address] Cata Terry, [place] [address] [place] [address] Maegan Duncan, Physical Therapist 12/19/2024 9:30 AM ROVING HAND Appointment [facility] S [facility] [address] [place] [address] Anselmo Durham MD 607 [facility] 23[address] [place] [address] 12/19/2024 10:40 AM ROVING HAND Office Visit [facility] EAR, NOSE AND THROAT [facility] [address] [facility] [address] [place] [address] Anselmo Durham MD 607 [facility] [address] [place] [address] 12/20/2024 2:00 PM ROVING HAND Office Visit [facility] Internal Medicine Medical [place] [address] [facility] [address] [address] Juventino Howe MD 6[address] [facility] [address] [place] [address] 12/28/2024 2:45 PM ROVING HAND Office Visit [facility] Endocrinology [address] [facility] [address] [place] [address] Sheldon Canales MD [address] [facility] [address] [place] [address] 01/04/2025 2:00 PM ROVING HAND Office Visit [facility] Neurology [address] [facility] [address] [place] [address] Juventino Howe MD [address] [facility] [address] [place] [address] Bobbi Davalos MD [address] [facility] [address] [place] [address] 02/26/2025 3:10 PM ROVING HAND Office Visit [facility] Gastroenterology [address] [facility] [facility] [address] [place] [address] Suzette Cody MD [address] [facility] [address] [place] [address] 03/28/2025 2:30 PM ROVING HAND Office Visit [facility] Colon and Rectal Surgery [address] [place] [address] [place] [address] [place] [address] 10/30/2025 3:00 PM CDT Office Visit [facility] Pulmonology [facility] [address] [facility] [facility] [address] [place] [address] Everett Cam MD [address] [facility] [address] [place] [address] documented as of this encounter Visit Diagnoses Not on filedocumented in this encounter Additional Health Concerns Infection Onset Date Last Indicated Resolved Time R/O Respiratory 01/11/2023 01/11/2023 01/11/2023 7 :48 PM ROVING HAND R/O Respiratory 02/19/2024 02/19/2024 02/19/2024 1 1:21 AM ROVING HAND Influenza 02/19/2024 02/19/2024 02/26/2024 1:16 AM ROVING HAND R/O Respiratory 03/13/2024 03/13/2024 03/13/2024 4 :20 PM ROVING HAND Human Metapneumovirus 03/13/2024 03/13/20242024 1:16 AM ROVING HAND R/O C. diff 03/13/2024 03/13/2024 03/14/2024 8:0 0 PM ROVING HAND R/O C. diff 03/14/2024 03/14/2024 03/15/2024 6:17 PM ROVING HAND documented as of this encounter Care Teams Seed Service Advisor Relationship Specialty Start Date End Date Juventino Howe MD [address] [facility] [address] [place] [address] PCP - General Internal Medicine 11/04/11 documented as of this encounter
--- OUTSIDE RECORDS SUMMARY | 2024-12-07 18:04 | XMS_ITS | Encounter Summary ---
Author Organization [facility] Address 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) Social History Tobacco Use Types Packs/Day Years Used Date Smoking Tobacco: Never Assessed Comments Unknown Sex and Gender Information Value Date Recorded Sex Assigned at Not on file Legal Sex Female 3:38 AM AIRCRAFT SHIPPING CHECKER Gender Identity Not on file Sexual Orientation Not on file documented as of this encounter Plan of Treatment Upcoming Encounters Date Type Department Care Team (Late st Contact Info) Description 12/12/2024 4:30 PM CDT Appointment [facility] [place] 755 [facility] 145 [place] [address] Cata Terry, [place] [address] [facility] [place] [address] Maegan Duncan, Physical Therapist 12/19/2024 9:30 AM AIRCRAFT SHIPPING CHECKER Appointment [facility] Radiology [facility] [address] [place] [address] Anselmo Durham MD 607 [facility] [address] [place] [address] 12/19/2024 10:40 AM AIRCRAFT SHIPPING CHECKER Office Visit [facility] EAR, NOSE AND THROAT [facility] CANCER CENTER [address] [facility] [address] [place] [address] Anselmo Durham MD 607 [facility] [address] [place] [address] 12/20/2024 2:00 PM AIRCRAFT SHIPPING CHECKER Office Visit [facility] Internal Medicine Medical [place] [address] [address] Juventino Howe MD [address] [place] [address] 12/28/2024 2:45 PM AIRCRAFT SHIPPING CHECKER Office Visit [facility] Endocrinology [address] [facility] [address] [place] [address] Sheldon Canales MD [address] [facility] [address] [place] [address] 01/04/2025 2:00 PM AIRCRAFT SHIPPING CHECKER Office Visit [facility] Neurology [address] [facility] [address] [place] [address] Juventino Howe MD [address] [place] [address] Bobbi Davalos MD [address] [place] [address] 02/26/2025 3:10 PM AIRCRAFT SHIPPING CHECKER Office Visit [facility] Gastroenterology [place] [address] [place] [address] Suzette Cody MD [address] [place] [address] 03/28/2025 2:30 PM AIRCRAFT SHIPPING CHECKER Office Visit [facility] Colon and Rectal Surgery [address] [place] [address] [place] [address] [place] [address] 10/30/2025 3:00 PM CDT Office Visit [facility] Pulmonology [facility] [address] [facility] [address] [place] [address] Everett Cam MD [address] [facility] [address] [place] [address] documented as of this encounter Procedures Procedure Name Priority Date/Time Associated Diagnosis Comments POC GLUCOSE Routine 11/20/2005 1:30 PM CDT CBC WITHOUT DIFFERENTIAL Routine 11/13/2005 12:00 PM CDT BASIC METABOLIC PANEL Routine 11/13/2005 12:00 PM CDT documented in this encounter Results * POC GLUCOSE (11/20/2005 1:30 PM CDT) Pathologist [facility] GLUCOSE POC 87 65 - 109 mg/dL INTERFACE SYSTEM 11/20/2005 1:30 PM CDT us Wendy Canales MD POINT OF CARE TESTING F inal Result INTERFACE SYSTEM Refer to clinic/hospital department * (ABNORMAL) CBC WITHOUT DIFFERENTIAL (11/13/2005 12:00 PM CDT) WBC 9.0 4.0 - 9.8 K/uL INTERFACE [...] INTERFACE SYSTEM 11/13/2005 12:0 0 PM CDT Wendy Canales MD HEMATOLOGY ORDERABLES F inal Result Performing Organization Address [facility] Phone Number INTERFACE SYSTEM Refer to clinic/hospital [...] INTERFACE SYSTEM 11/13/2005 12:0 0 PM CDT Wendy Canales MD CHEMISTRY ORDERABLES Fi nal Result Performing Organization Address [facility] [place] Phone Number INTERFACE SYSTEM Refer to clinic/hospital department documented in this encounter Visit Diagnoses Diagnosis Prolapse of vaginal vault after hysterectomy- Primary documented in this encounter Additional Health Concerns Infection Onset Date Last Indicated Resolved Time R/O Respiratory 01/11/2023 01/11/2023 01/11/2023 7 :48 PM AIRCRAFT SHIPPING CHECKER R/O Respiratory 02/19/2024 02/19/2024 02/19/2024 1 1:21 AM AIRCRAFT SHIPPING CHECKER Influenza 02/19/2024 02/19/2024 02/26/2024 1:16 AM AIRCRAFT SHIPPING CHECKER R/O Respiratory 03/13/2024 03/13/2024 03/13/2024 4 :20 PM AIRCRAFT SHIPPING CHECKER Human Metapneumovirus 03/13/2024 03/13/20242024 1:16 AM AIRCRAFT SHIPPING CHECKER R/O C. diff 03/13/2024 03/13/2024 03/14/2024 8:00 PM AIRCRAFT SHIPPING CHECKER R/O C. diff 03/14/2024 03/14/2024 03/15/2024 6:17 PM AIRCRAFT SHIPPING CHECKER documented as of this encounter Care Teams Acid Tester Relationship Specialty Start Date End Date Juventino Howe MD [address] [facility] [address] [place] [address] PCP - General Internal Medicine 11/04/11 documented as of this encounter
--- OUTSIDE RECORDS SUMMARY | 2024-12-07 18:04 | XMS_ITS | Encounter Summary ---
Author Organization [facility] Address [address] [place] [address] Care Team Providers Care Personal Care Worker Name Role Phone Juventino Howe MD Primary Care Provider [phone] Encounter Details Date Type Department Care Team (Late st Contact Info) Description 01/26/2007 Outpatient Historical [facility] DEPT Lynne Escobar MD [address] [place] [address] Other Constipation Social History Tobacco Use Types Packs/Day Years Used Date Smoking Tobacco: Never Assessed Comments Unknown Sex and Gender Information Value Date Recorded Sex Assigned at Not on file Legal Sex Female 3:38 AM STUDY LEAD Gender Identity Not on file Sexual Orientation Not on file documented as of this encounter Plan of Treatment Upcoming Encounters Date Type Department Care Team (Late st Contact Info) Description 12/12/2024 4:30 PM CDT [facility]ment [facility] [place] [address] [facility] 145 [place] [address] Cata Terry, [place] [address] [place] [address] Maegan Duncan, Physical Therapist 12/19/2024 9:30 AM STUDY LEAD Appointment [facility] S [facility] [address] [place] [address] Anselmo Durham MD 607 [facility] [address] [place] [address] 12/19/2024 10:40 AM STUDY LEAD Office Visit [facility] EAR, NOSE AND THROAT [facility] CANCER CENTER [address] [facility] [address] [place] [address] Anselmo Durham MD 607 [facility] [address] [place] [address] 12/20/2024 2:00 PM STUDY LEAD Office Visit [facility] Internal Medicine Medical [place] [address] [facility] [address] [address] Juventino Howe MD [address] [facility] [address] [place] [address] 12/28/2024 2:45 PM STUDY LEAD Office Visit [facility] Endocrinology [address] [facility] [address] [place] [address] Sheldon Canales MD [address] [facility] [address] [place] [address] 01/04/2025 2:00 PM STUDY LEAD Office Visit [facility] Neurology [address] [facility] [address] [place] [address] Juventino Howe MD [address] [facility] [address] [place] [address] Bobbi Davalos MD [address] [place] [address] 02/26/2025 3:10 PM STUDY LEAD Office Visit [facility] Gastroenterology [address] [place] [address] Suzette Cody MD [address] [place] [address] 03/28/2025 2:30 PM STUDY LEAD Office Visit [facility] Colon and Rectal Surgery [address] [place] [address] [place] [address] [place] [address] 10/30/2025 3:00 PM CDT Office Visit [facility] Pulmonology [facility] [address] [facility] [address] [place] [address] Everett Cam MD [address] [facility] [address] [place] [address] documented as of this encounter Visit Diagnoses Diagnosis Other constipation documented in this encounter Additional Health Concerns Infection Onset Date Last Indicated Resolved Time R/O Respiratory 01/11/2023 01/11/2023 01/11/2023 7 :48 PM STUDY LEAD R/O Respiratory 02/19/2024 02/19/2024 02/19/2024 1 1:21 AM STUDY LEAD Influenza 02/19/2024 02/19/2024 02/26/2024 1:16 AM STUDY LEAD R/O Respiratory 03/13/2024 03/13/2024 03/13/2024 4 :20 PM STUDY LEAD Human Metapneumovirus 03/13/2024 03/13/20242024 1:16 AM STUDY LEAD R/O C. diff 03/13/2024 03/13/2024 03/14/2024 8:00 PM STUDY LEAD R/O C. diff 03/14/2024 03/14/2024 03/15/2024 6:17 PM STUDY LEAD documented as of this encounter Care Teams Personal Care Worker Relationship Specialty Start Date End Date Juventino Howe MD [address] [facility] [address] [place] [address] PCP - General Internal Medicine 11/04/11 documented as of this encounter
--- OUTSIDE RECORDS SUMMARY | 2024-12-07 18:04 | XMS_ITS | Encounter Summary ---
Author Organization [facility] Address [address] [place] [address] Care Team Providers Care Baby Formula Worker Name Role Phone Juventino Howe MD Primary Care Provider [phone] Encounter Details Date Type Department Care Team (Late st Contact Info) Description 02/03/2007 Outpatient Historical [facility] Gynecologic Oncology [address] [facility] [address] [place] [address] Gadiel Price Jr., MD NO ADDRESS ON FILE Social History Tobacco Use Types Packs/Day Years Used Date Smoking Tobacco: Never Assessed Comments Unknown Sex and Gender Information Value Date Recorded Sex Assigned at Not on file Legal Sex Female 3:38 AM COMMERCIAL CREDIT PORTFOLIO MANAGER Gender Identity Not on file Sexual Orientation Not on file documented as of this encounter Plan of Treatment Upcoming Encounters Date Type Department Care Team (Late st Contact Info) Description 12/12/2024 4:30 PM CDT Appointment [facility] Therapy Services [place] 7[address] [facility] [address] [place] [address] Cata Terry, MACARIO [address] [place], [place] [id number] Maegan Duncan, Physical Therapist 12/19/2024 9:30 AM COMMERCIAL CREDIT PORTFOLIO MANAGER Appointment [facility] S [facility] [address] [place] [address] Anselmo Durham MD 607 [facility] [address] [place] [address] 12/19/2024 10:40 AM COMMERCIAL CREDIT PORTFOLIO MANAGER Office Visit [facility] EAR, NOSE AND THROAT [facility] [address] [facility] [address] [place] [address] Anselmo Durham MD [address] [facility] [address] [place] [address] 12/20/2024 2:00 PM COMMERCIAL CREDIT PORTFOLIO MANAGER Office Visit [facility] Internal Medicine Medical [place] A [address] [facility] [address] [address] Juventino Howe MD [address] [facility] [address] [place] [address] 12/28/2024 2:45 PM COMMERCIAL CREDIT PORTFOLIO MANAGER Office Visit [facility] Endocrinology [address] [facility] [address] [place] [address] Sheldon Canales MD [address] [facility] [address] [place] [address] 01/04/2025 2:00 PM COMMERCIAL CREDIT PORTFOLIO MANAGER Office Visit [facility] Neurology [address] [facility] [address] [place] [address] Juventino Howe MD [address] [facility] [address] [place] [address] Bobbi Davalos MD [address] [facility] [address] [place] [address] 02/26/2025 3:10 PM COMMERCIAL CREDIT PORTFOLIO MANAGER Office Visit [facility] Gastroenterology [place] [address] [facility] [address] [place] [address] Suzette Cody MD [address] [facility] [address] [place] [address] 03/28/2025 2:30 PM COMMERCIAL CREDIT PORTFOLIO MANAGER Office Visit [facility] Colon and Rectal Surgery [address] [place] [address] [place] [address] [place] [address] 10/30/2025 3:00 PM CDT Office Visit [facility] Pulmonology [facility] [address] [facility] [address] [place] [address] Everett Cam MD [address] [facility] [address] [place] [address] documented as of this encounter Visit Diagnoses Not on filedocumented in this encounter Additional Health Concerns Infection Onset Date Last Indicated Resolved Time R/O Respiratory 01/11/2023 01/11/2023 01/11/2023 7 :48 PM COMMERCIAL CREDIT PORTFOLIO MANAGER R/O Respiratory 02/19/2024 02/19/2024 02/19/2024 1 1:21 AM COMMERCIAL CREDIT PORTFOLIO MANAGER Influenza 02/19/2024 02/19/2024 02/26/2024 1:16 AM COMMERCIAL CREDIT PORTFOLIO MANAGER R/O Respiratory 03/13/2024 03/13/2024 03/13/2024 4 :20 PM COMMERCIAL CREDIT PORTFOLIO MANAGER Human Metapneumovirus 03/13/2024 03/13/20242024 1:16 AM COMMERCIAL CREDIT PORTFOLIO MANAGER R/O C. diff 03/13/2024 03/13/2024 03/14/2024 8:00 PM COMMERCIAL CREDIT PORTFOLIO MANAGER R/O C. diff 03/14/2024 03/14/2024 03/15/2024 6:17 PM COMMERCIAL CREDIT PORTFOLIO MANAGER documented as of this encounter Care Teams Baby Formula Worker Relationship Specialty Start Date End Date Juventino Howe MD [address] [facility] [address] [place] [address] PCP - General Internal Medicine 11/04/11 documented as of this encounter
--- OUTSIDE RECORDS SUMMARY | 2024-12-07 18:04 | XMS_ITS | Encounter Summary ---
Author Organization [facility] Address [address] [place] [address] Care Team Providers Care Director Medical Economics Name Role Phone Juventino Howe MD Primary Care Provider [phone] Encounter Details Date Type Department Care Team (Late st Contact Info) Description 02/04/2007 Outpatient [facility] Gynecologic Oncology [address] [facility] [address] [place] [address] Gadiel Price Jr., MD NO ADDRESS ON FILE Social History Tobacco Use Types Packs/Day Years Used Date Smoking Tobacco: Never Assessed Comments Unknown Sex and Gender Information Value Date Recorded Sex Assigned at Not on file Legal Sex Female 3:38 AM EDGE CUTTER Gender Identity Not on file Sexual Orientation Not on file documented as of this encounter Plan of Treatment Upcoming Encounters Date Type Department Care Team (Late st Contact Info) Description 12/12/2024 4:30 PM CDT Appointment [facility] Therapy Services [place] 755 [facility] [address] [place] [address] Cata Terry, MACAR[place] [address] [place] [address] Maegan Duncan, Physical Therapist 12/19/2024 9:30 AM EDGE CUTTER Appointment [facility] [address] [place] [address] Anselmo Durham MD 607 [facility] [address] [place] [address] 12/19/2024 10:40 AM EDGE CUTTER Office Visit [facility] EAR, NOSE AND THROAT [facility] [address] [facility] [address] [place] [address] Anselmo Durham MD [address] [facility] [address] [place] [address] 12/20/2024 2:00 PM EDGE CUTTER Office Visit [facility] Internal Medicine Medical [place] A [address] [facility] [address] [address] Juventino Howe MD [address] [facility] [address] [place] [address] 12/28/2024 2:45 PM EDGE CUTTER Office Visit [facility] Endocrinology [address] [facility] [address] [place] [address] Sheldon Canales MD [address] [facility] [address] [place] [address] 01/04/2025 2:00 PM EDGE CUTTER Office Visit [facility] Neurology [address] [facility] [address] [place] [address] Juventino Howe MD [address] [facility] [address] [place] [address] Bobbi Davalos MD [address] [facility] [address] [place] [address] 02/26/2025 3:10 PM EDGE CUTTER Office Visit [facility] Gastroenterology [place] [address] [facility] [address] [place] [address] Suzette Cody MD [address] [facility] [address] [place] [address] 03/28/2025 2:30 PM EDGE CUTTER Office Visit [facility] Colon and Rectal Surgery [address] [place] [address] [place] [address] [place] [address] 10/30/2025 3:00 PM CDT Office Visit [facility] Pulmonology [facility] [address] [facility] [address] [place] [address] Everett Cam MD [address] [facility] [address] [place] [address] documented as of this encounter Visit Diagnoses Not on filedocumented in this encounter Additional Health Concerns Infection Onset Date Last Indicated Resolved Time R/O Respiratory 01/11/2023 01/11/2023 01/11/2023 7 :48 PM EDGE CUTTER R/O Respiratory 02/19/2024 02/19/2024 02/19/2024 1 1:21 AM EDGE CUTTER Influenza 02/19/2024 02/19/2024 02/26/2024 1:16 AM EDGE CUTTER R/O Respiratory 03/13/2024 03/13/2024 03/13/2024 4 :20 PM EDGE CUTTER Human Metapneumovirus 03/13/2024 03/13/20242024 1:16 AM EDGE CUTTER R/O C. diff 03/13/2024 03/13/2024 03/14/2024 8:00 PM EDGE CUTTER R/O C. diff 03/14/2024 03/14/2024 03/15/2024 6:17 PM EDGE CUTTER documented as of this encounter Care Teams Director Medical Economics Relationship Specialty Start Date End Date Juventino Howe MD [address] [facility] [address] [place] [address] PCP - General Internal Medicine 11/04/11 documented as of this encounter
--- OUTSIDE RECORDS SUMMARY | 2024-12-07 18:04 | XMS_ITS | Encounter Summary ---
Author Organization [facility] Address [address] [place] [address] Care Team Providers Care Cardroom Supervisor Name Role Phone Juventino Howe MD Primary Care Provider [phone] Encounter Details Date Type Department Care Team (Latest Contact Info) Description 09/21/2005 Outpatient Historical [facility] Lynne Navarro MD [address] [place] [address] Other Constipation (Primary Dx) Social History Tobacco Use Types Packs/Day Years Used Date Smoking Tobacco: Never Assessed Comments Unknown Sex and Gender Information Value Date Recorded Sex Assigned at Not on file Legal Sex Female 3:38 AM ASH WORKER Gender Identity Not on file Sexual Orientation Not on file documented as of this encounter Plan of Treatment Upcoming Encounters Date Type Department Care Team (Late st Contact Info) Description 12/12/2024 4:30 PM CDT Appointment [facility] Therapy Services [address] [place] [address] Cata Terry, [place]AR[place] [address] [place] [address] Maegan Duncan, Physical Therapist 12/19/2024 9:30 AM ASH WORKER Appointment [facility] Radiology S [facility] [address] [place] [address] Anselmo Durham MD 607 [facility] [address] [place] [address] 12/19/2024 10:40 AM ASH WORKER Office Visit [facility] EAR, NOSE AND THROAT [facility] CANCER CENTER [address] [place] [address] Anselmo Durham MD [address] [place] [address] 12/20/2024 2:00 PM ASH WORKER Office Visit [facility] Internal Medicine Medical [place] A [address] [address] Juventino Howe MD [address] [place] [address] 12/28/2024 2:45 PM ASH WORKER Office Visit [facility] Endocrinology [address] [place] [address] Sheldon Canales MD [address] [place] [address] 01/04/2025 2:00 PM ASH WORKER Office Visit [facility] Neurology [address] [place] [address] Juventino Howe MD [address] [place] [address] Bobbi Davalos MD [address] [place] [address] 02/26/2025 3:10 PM ASH WORKER Office Visit [facility] Gastroenterology [place] [address] [place] [address] Suzette Cody MD [address] [place] [address] 03/28/2025 2:30 PM ASH WORKER Office Visit [facility] Colon and Rectal Surgery [address] [place] [address] [place] [address] [place] [address] 10/30/2025 3:00 PM CDT Office Visit [facility] Pulmonology [facility] [address] [facility] [address] [place] [address] Everett Cam MD [address] [facility] [address] [place] [address] documented as of this encounter [...] ORDERABLES Final Res ult Performing Organization Address [facility] Number INTERFACE SYSTEM Refer to clinic/hospital department [...] ORDERABLES Final Res ult Performing Organization Address [facility] Number INTERFACE SYSTEM Refer to clinic/hospital department * C-REACTIVE PROTEIN (09/21/2005 4:49 PM CDT) CRP <0.2 0.0 - 0.8 mg/dL INTERFACE SYSTEM 09/21/2005 4:49 PM CDT us Lynne Escobar MD CHEMISTRY ORDERABLES Final Resu lt Performing Organization Address [facility] Phone Number INTERFACE SYSTEM Refer to clinic/hospital department documented in this encounter Visit Diagnoses Diagnosis Other constipation- Primary documented in this encounter Additional Health Concerns Infection Onset Date Last Indicated Resolved Time R/O Respiratory 01/11/2023 01/11/2023 01/11/2023 7 :48 PM ASH WORKER R/O Respiratory 02/19/2024 02/19/2024 02/19/2024 1 1:21 AM ASH WORKER Influenza 02/19/2024 02/19/2024 02/26/2024 1:16 AM ASH WORKER R/O Respiratory 03/13/2024 03/13/2024 03/13/2024 4 :20 PM ASH WORKER Human Metapneumovirus 03/13/2024 03/13/20242024 1:16 AM ASH WORKER R/O C. diff 03/13/2024 03/13/2024 03/14/2024 8:00 PM ASH WORKER R/O C. diff 03/14/2024 03/14/2024 03/15/2024 6:17 PM ASH WORKER documented as of this encounter Care Teams Cardroom Supervisor Relationship Specialty Start Date End Date Juventino Howe MD [address] [facility] [address] [place] [address] PCP - General Internal Medicine 11/04/11 documented as of this encounter
--- OUTSIDE RECORDS SUMMARY | 2024-12-07 18:04 | XMS_ITS | Encounter Summary ---
Author Organization [facility] Address [address] [place] [address] Care Team Providers Care Middle [employer] Science Teacher Name Role Phone Juventino Howe MD Primary Care Provider [phone] Encounter Details Date Type Department Care Team (Late st Contact Info) Description 07/19/2006 Outpatient Historical [facility], [address] Wendy Canales MD [address] [facility] [address] [address] Urinary Tract Infection, Site not Specified (Primary Dx) Social History Tobacco Use Types Packs/Day Years Used Date Smoking Tobacco: Never Assessed Comments Unknown Sex and Gender Information Value Date Recorded Sex Assigned at Not on file Legal Sex Female 3:38 AM BROTH MIXER Gender Identity Not on file Sexual Orientation Not on file documented as of this encounter Plan of Treatment Upcoming Encounters Date Type Department Care Team (Late st Contact Info) Description 12/12/2024 4:30 PM CDT Appointment [facility] Therapy [facility] [place] [address] [facility] [address] [place] [address] Cata Terry, MACAR[place] [address] [place] [address] Maegan Duncan, Physical Therapist 12/19/2024 9:30 AM BROTH MIXER Appointment [facility] Radiology S Replaced By [facility] [address] [place] [address] Anselmo Durham MD 607 [facility] [address] [place] [address] 12/19/2024 10:40 AM BROTH MIXER Office Visit [facility] EAR, NOSE AND THROAT [facility]CER CENTER [address] [facility] [address] [place] [address] Anselmo Durham MD 607 [facility] [address] [place] [address] 12/20/2024 2:00 PM BROTH MIXER Office Visit [facility] Internal Medicine Medical [place] A [address] [facility] [address] [address] Juventino Howe MD [address] [facility] [address] [place] [address] 12/28/2024 2:45 PM BROTH MIXER Office Visit [facility] Endocrinology [address] [facility] [address] [place] [address] Sheldon Canales MD [address] [facility] [address] [place] [address] 01/04/2025 2:00 PM BROTH MIXER Office Visit [facility] Neurology [address] [facility] [address] [place] [address] Juventino Howe MD [address] [facility] [address] [place] [address] Bobbi Davalos MD [address] [place] [address] 02/26/2025 3:10 PM BROTH MIXER Office Visit [facility] Gastroenterology [address] [address] [place] [address] Suzette Cody MD [address] [place] [address] 03/28/2025 2:30 PM BROTH MIXER Office Visit [facility] Colon and Rectal Surgery [address] [place] [address] [place] [address] [place] [address] 10/30/2025 3:00 PM CDT Office Visit [facility] Pulmonology [facility] [address] [facility] [address] [place] [address] Everett Cam MD [address] [facility] [address] [place] [address] documented as of this encounter Visit Diagnoses Diagnosis Urinary tract infection, site not specified- Primary documented in this encounter Additional Health Concerns Infection Onset Date Last Indicated Resolved Time R/O Respiratory 01/11/2023 01/11/2023 01/11/2023 7 :48 PM BROTH MIXER R/O Respiratory 02/19/2024 02/19/2024 02/19/2024 1 1:21 AM BROTH MIXER Influenza 02/19/2024 02/19/2024 02/26/2024 1:16 AM BROTH MIXER R/O Respiratory 03/13/2024 03/13/2024 03/13/2024 4 :20 PM BROTH MIXER Human Metapneumovirus 03/13/2024 03/13/20242024 1:16 AM BROTH MIXER R/O C. diff 03/13/2024 03/13/2024 03/14/2024 8:00 PM BROTH MIXER R/O C. diff 03/14/2024 03/14/2024 03/15/2024 6:17 PM BROTH MIXER documented as of this encounter Care Teams [employer] Science Teacher Relationship Specialty Start Date End Date Juventino Howe MD [address] [facility] [address] [place] [address] PCP - General Internal Medicine 11/04/11 documented as of this encounter
--- OUTSIDE RECORDS SUMMARY | 2024-12-07 18:04 | XMS_ITS | Encounter Summary ---
Author Organization [facility] Address [address] [place] [address] Care Team Providers Care Front End Engineer Name Role Phone Juventino Howe MD Primary Care Provider [phone] Encounter Details Date Type Department Care Team (Late Contact Info) Description 04/06/2006 Outpatient Historical [facility] DEPT Wendy Canales MD [address] [facility] [address] [place] [address] Abdominal or Pelvic Swelling, Mass or Lump, Unspecified Site (Primary Dx) Social History Tobacco Use Types Packs/Day Years Used Date Smoking Tobacco: Never Assessed Comments Unknown Sex and Gender Information Value Date Recorded Sex Assigned at Not on file Legal Sex Female 3:38 AM POTATO INSPECTOR Gender Identity Not on file Sexual Orientation Not on file documented as of this encounter Plan of Treatment Upcoming Encounters Date Type Department Care Team (Late Contact Info) Description 12/12/2024 4:30 PM CDT [facility]ment [facility] [place] [address] [facility] 145 [place] [address] Cata Terry, CONCRETE BLOCK MOLDER [address] [place] [address] Maegan Duncan, Physical Therapist 12/19/2024 9:30 AM POTATO INSPECTOR [facility]ment [facility] S [facility] [address] [place] [address] Anselmo Durham MD 607 [facility] [address] [place] [address] 12/19/2024 10:40 AM POTATO INSPECTOR Office Visit [facility] EAR, NOSE AND THROAT [facility] [address] [facility] [address] [place] [address] Anselmo Durham MD [address] [facility] [address] [place] [address] 12/20/2024 2:00 PM POTATO INSPECTOR Office Visit [facility] Internal Medicine Medical [place] A [address] [facility] [address] [address] Juventino Howe MD [address] [facility] [address] [place] [address] 12/28/2024 2:45 PM POTATO INSPECTOR Office Visit [facility] Endocrinology [address] [facility] [address] [place] [address] Sheldon Canales MD [address] [facility] [address] [place] [address] 01/04/2025 2:00 PM POTATO INSPECTOR Office Visit [facility] Neurology [address] [facility] [address] [place] [address] Juventino Howe MD [address] [facility] [address] [place] [address] Bobbi Davalos MD [address] [facility] [address] [place] [address] 02/26/2025 3:10 PM POTATO INSPECTOR Office Visit [facility] Gastroenterology [address] [address] [facility] [address] [place] [address] Suzette Cody MD [address] [facility] [address] [place] [address] 03/28/2025 2:30 PM POTATO INSPECTOR Office Visit [facility] Colon and Rectal Surgery [address] [facility] [address] [place] [address] [place] [address] [place] [address] 10/30/2025 3:00 PM CDT Office Visit [facility] Pulmonology [facility] [address] [facility] [address] [place] [address] Everett Cam MD [address] [facility] [address] [place] [address] documented as of this encounter Visit Diagnoses Diagnosis Abdominal or pelvic swelling, mass or lump, unspecified site- Primary documented in this encounter Additional Health Concerns Infection Onset Date Last Indicated Resolved Time R/O Respiratory 01/11/2023 01/11/2023 01/11/2023 7 :48 PM POTATO INSPECTOR R/O Respiratory 02/19/2024 02/19/2024 02/19/2024 1 1:21 AM POTATO INSPECTOR Influenza 02/19/2024 02/19/2024 02/26/2024 1:16 AM POTATO INSPECTOR R/O Respiratory 03/13/2024 03/13/2024 03/13/2024 4 :20 PM POTATO INSPECTOR Human Metapneumovirus 03/13/2024 03/13/20242024 1:16 AM POTATO INSPECTOR R/O C. diff 03/13/2024 03/13/2024 03/14/2024 8:00 PM POTATO INSPECTOR R/O C. diff 03/14/2024 03/14/2024 03/15/2024 6:17 PM POTATO INSPECTOR documented as of this encounter Care Teams Front End Engineer Relationship Specialty Start Date End Date Juventino Howe MD [address] [place] [address] PCP - General Internal Medicine 11/04/11 documented as of this encounter
--- OUTSIDE RECORDS SUMMARY | 2024-12-07 18:04 | XMS_ITS | Encounter Summary ---
Author Organization [facility] Address [address] [place] [address] Care Team Providers Care Sample Processor Name Role Phone Juventino Howe MD Primary Care Provider [phone] Encounter Details Date Type Department Care Team (Late st Contact Info) Description 04/26/2024 Abstract [facility] Oncology and Hematology Parkerbrian Brunson [address] [place] [address] Cora Perkins MD [address] [place] [address] Social History Tobacco Use Types Packs/Day Years [...] on file Legal Sex Female 3:38 AM PAPER MILL SUPERINTENDENT Gender Identity Not on file Sexual Orientation Not on file 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 [address] Maegan Duncan, Physical Therapist 12/19/2024 9:30 AM PAPER MILL SUPERINTENDENT Appointment [facility] [address] [place] [address] Anselmo Durham MD 607 [facility] [address]00 [place] [address] 12/19/2024 10:40 AM PAPER MILL SUPERINTENDENT Office Visit [facility] EAR, NOSE AND THROAT [facility] 607 [facility] [address] [place] [address] Anselmo Durham MD 607 [facility] [address] [place] [address] 12/20/2024 2:00 PM PAPER MILL SUPERINTENDENT Office Visit [facility] Internal Medicine Medical [place] A [facility] [address] [facility] [address] [address] Juventino Howe MD [address] [facility] [address] [place] [address] 12/28/2024 2:45 PM PAPER MILL SUPERINTENDENT Office Visit [facility] Endocrinology [address] [facility] [address] [place] [address] Sheldon Canales MD [address] [facility] [address] [place] [address] 01/04/2025 2:00 PM PAPER MILL SUPERINTENDENT Office Visit [facility] Neurology [address] [place] [address] Juventino Howe MD [address] [place] [address] Bobbi Davalos MD [address] [place] [address] 02/26/2025 3:10 PM PAPER MILL SUPERINTENDENT Office Visit [facility] Gastroenterology [address] [place] [address] Suzette Cody MD [address] [place] [address] 03/28/2025 2:30 PM PAPER MILL SUPERINTENDENT Office Visit [facility] Colon and Rectal Surgery [address] [facility] [address] [place] [address] [place] [address] [place] [address] 10/30/2025 3:00 PM CDT Office Visit [facility] Pulmonology [facility] [address] [place] [address] Everett Cam MD [address] [place] [address] documented as of this encounter Visit Diagnoses Not on filedocumented in this encounter Care Teams Sample Processor Relationship Specialty Start Date End Date Juventino Howe MD [address] [place] [address] PCP - General Internal Medicine 11/04/11 documented as of this encounter
--- OUTSIDE RECORDS SUMMARY | 2024-12-07 18:04 | XMS_ITS | Encounter Summary ---
Author Organization [facility] Address [address] [place] [address] Care Team Providers Care Card Brusher Name Role Phone Juventino Howe MD Primary Care Provider Encounter Details Date Type Department Care Team (Late st Contact Info) Description 09/24/2005 Outpatient Historical [facility] Lynne Escobar MD [address] [place] [address] Unspecified Constipation (Primary Dx) Social History Tobacco Use Types Packs/Day Years Used Date Smoking Tobacco: Never Assessed Comments Unknown Sex and Gender Information Value Date Recorded Sex Assigned at Not on file Legal Sex Female 3:38 AM TRANSPORT COMPANY MANAGER Gender Identity Not on file Sexual Orientation Not on file documented as of this encounter Plan of Treatment Upcoming Encounters Date Type Department Care Team (Late Contact Info) Description 12/12/2024 4:30 PM CDT Appointment [facility] [place] 755 [facility] 145 [place] [address] [place] [address] [place] [address] Maegan Duncan, Physical Therapist 12/19/2024 9:30 AM TRANSPORT COMPANY MANAGER Appointment [facility] Rad[facility] S [facility] [address] [place] [address] Anselmo Durham MD 607 [facility] 2300 [place] [address] 12/19/2024 10:40 AM TRANSPORT COMPANY MANAGER Office Visit [facility] EAR, NOSE AND THROAT [facility] CANCER CENTER [address] [place] [address] Anselmo Durham MD [address] [place] [address] 12/20/2024 2:00 PM TRANSPORT COMPANY MANAGER Office Visit [facility] Internal Medicine Medical [place] A [address] [address] Juventino Howe MD [address] [place] [address] 12/28/2024 2:45 PM TRANSPORT COMPANY MANAGER Office Visit [facility] Endocrinology [address] [place] [address] Sheldon Canales MD [address] [facility] [address] [place] [address] 01/04/2025 2:00 PM TRANSPORT COMPANY MANAGER Office Visit [facility] Neurology [address] [place] [address] Juventino Howe MD [address] [place] [address] Bobbi Davalos MD [address] [place] [address] 02/26/2025 3:10 PM TRANSPORT COMPANY MANAGER Office Visit [facility] Gastroenterology [place] [address] [place] [address] Suzette Cody MD [address] [place] [address] 03/28/2025 2:30 PM TRANSPORT COMPANY MANAGER Office Visit [facility] Colon and Rectal Surgery [address] [place] [address] [place] [address] [place] [address] 10/30/2025 3:00 PM CDT Office Visit [facility] Pulmonology [facility] [address] [facility] [address] [place] [address] Everett Cam MD [address] [facility] [address] [place] [address] documented as of this encounter Visit Diagnoses Diagnosis Unspecified constipation- Primary documented in this encounter Additional Health Concerns Infection Onset Date Last Indicated Resolved Time R/O Respiratory 01/11/2023 01/11/2023 01/11/2023 7 :48 PM TRANSPORT COMPANY MANAGER R/O Respiratory 02/19/2024 02/19/2024 02/19/2024 1 1:21 AM TRANSPORT COMPANY MANAGER Influenza 02/19/2024 02/19/2024 02/26/2024 1:16 AM TRANSPORT COMPANY MANAGER R/O Respiratory 03/13/2024 03/13/2024 03/13/2024 4 :20 PM TRANSPORT COMPANY MANAGER Human Metapneumovirus 03/13/2024 03/13/20242024 1:16 AM TRANSPORT COMPANY MANAGER R/O C. diff 03/13/2024 03/13/2024 03/14/2024 8:00 PM TRANSPORT COMPANY MANAGER R/O C. diff 03/14/2024 03/14/2024 03/15/2024 6:17 PM TRANSPORT COMPANY MANAGER documented as of this encounter Care Teams Card Brusher Relationship Specialty Start Date End Date Juventino Howe MD [address] [facility] [address] [place] [address] PCP - General Internal Medicine 11/04/11 documented as of this encounter
--- OUTSIDE RECORDS SUMMARY | 2024-12-07 18:04 | XMS_ITS | Encounter Summary ---
Author Organization [facility] Address [address] [place] [address] Care Team Providers Care House Wirer Name Role Phone Juventino Howe MD Primary Care Provider [phone] Encounter Details Date Type Department Care Team (Late st Contact Info) Description 10/11/2005 Outpatient Historical [facility] Lynne Navarro MD [address] [place] [address] Social History Tobacco Use Types Packs/Day Years Used Date Smoking Tobacco: Never Assessed Comments Unknown Sex and Gender Information Value Date Recorded Sex Assigned at Not on file Legal Sex Female 3:38 AM BEER BREWER Gender Identity Not on file Sexual Orientation Not on file documented as of this encounter Plan of Treatment Upcoming Encounters Date Type Department Care Team (Late st Contact Info) Description 12/12/2024 4:30 PM CDT Appointment [facility] [place] [address] [facility] 145 [place] [address] Cata Terry, [place]AR[place] [address] [place] [address] Maegan Duncan, Physical Therapist 12/19/2024 9:30 AM BEER BREWER Appointment [facility] Radiology S [facility] [address] [place] [address] Anselmo Durham MD 607 [facility] [address] [place] [address] 12/19/2024 10:40 AM BEER BREWER Office Visit [facility] EAR, NOSE AND THROAT [facility] CANCER C[facility] [address] [facility] [address] [place] [address] Anselmo Durham MD 607 [facility] [address] [place] [address] 12/20/2024 2:00 PM BEER BREWER Office Visit [facility] Internal Medicine Medical [place] A [address] [facility] [address] [address] Juventino Howe MD [address] [facility] [address] [place] [address] 12/28/2024 2:45 PM BEER BREWER Office Visit [facility] Endocrinology [address] [facility] [address] [place] [address] Sheldon Canales MD [address] [facility] [address] [place] [address] 01/04/2025 2:00 PM BEER BREWER Office Visit [facility] Neurology [address] [facility] [address] [place] [address] Juventino Howe MD [address] [facility] [address] [place] [address] Bobbi Davalos MD [address] [place] [address] 02/26/2025 3:10 PM BEER BREWER Office Visit [facility] Gastroenterology [address] [place] [address] Suzette Cody MD [address] [place] [address] 03/28/2025 2:30 PM BEER BREWER Office Visit [facility] Colon and Rectal Surgery [address] [place] [address] [place] [address] [place] [address] 10/30/2025 3:00 PM CDT Office Visit [facility] Pulmonology [facility] [address] [facility] [address] [place] [address] Everett Cam MD [address] [facility] [place] [address] documented as of this encounter Visit Diagnoses Not on filedocumented in this encounter Additional Health Concerns Infection Onset Date Last Indicated Resolved Time R/O Respiratory 01/11/2023 01/11/2023 01/11/2023 7 :48 PM BEER BREWER R/O Respiratory 02/19/2024 02/19/2024 02/19/2024 1 1:21 AM BEER BREWER Influenza 02/19/2024 02/19/2024 02/26/2024 1:16 AM BEER BREWER R/O Respiratory 03/13/2024 03/13/2024 03/13/2024 4 :20 PM BEER BREWER Human Metapneumovirus 03/13/2024 03/13/20242024 1:16 AM BEER BREWER R/O C. diff 03/13/2024 03/13/2024 03/14/2024 8:00 PM BEER BREWER R/O C. diff 03/14/2024 03/14/2024 03/15/2024 6:17 PM BEER BREWER documented as of this encounter Care Teams House Wirer Relationship Specialty Start Date End Date Juventino Howe MD [address] [facility] [place] [address] PCP - General Internal Medicine 11/04/11 documented as of this encounter
--- OUTSIDE RECORDS SUMMARY | 2024-12-07 18:04 | XMS_ITS | Encounter Summary ---
Author Organization [facility] Address [address] [place] [address] Care Team Providers Care Auto Wrecker Name Role Phone Juventino Howe MD Primary Care Provider [phone] Encounter Details Date Type Department Care Team (Late st Contact Info) Description 05/14/2006 Inpatient Historical [facility] Wendy Canales MD [address] [facility] [address] [place] [address] Peritoneal Adhesions (Postoperative) (Postinfection) (Primary Dx) Social History Tobacco Use Types Packs/Day Years Used Date Smoking Tobacco: Never Assessed Comments Unknown Sex and Gender Information Value Date Recorded Sex Assigned at Not on file Legal Sex Female 3:38 AM YOUNG ADULT LIBRARIAN Gender Identity Not on file Sexual Orientation Not on file documented as of this encounter Plan of Treatment Upcoming Encounters Date Type Department Care Team (Late Contact Info) Description 12/12/2024 4:30 PM CDT [facility]ointment [facility] [place] [address] [facility] 145 [place] [address] Cata Terry, [place]AR[place] [address] [place] [address] Maegan Duncan, Physical Therapist 12/19/2024 9:30 AM YOUNG ADULT LIBRARIAN Appointment [facility] Radiology S [facility] [address] [place] [address] Anselmo Durham MD 607 [facility] [address] [place] [address] 12/19/2024 10:40 AM YOUNG ADULT LIBRARIAN Office Visit [facility] EAR, NOSE AND THROAT [facility] CANCER CENTER [address] [facility] [address] [place] [address] Anselmo Durham MD [address] [facility] [address] [place] [address] 12/20/2024 2:00 PM YOUNG ADULT LIBRARIAN Office Visit [facility] Internal Medicine Medical [place] [address] [address] Juventino Howe MD [address] [facility] [address] [place] [address] 12/28/2024 2:45 PM YOUNG ADULT LIBRARIAN Office Visit [facility]3] Endocrinology [address] [facility] [address] [place] [address] Sheldon Canales MD [address] [facility] [address] [place] [address] 01/04/2025 2:00 PM YOUNG ADULT LIBRARIAN Office Visit [facility] Neurology [address] [facility] [address] [place] [address] Juventino Howe MD [address] [place] [address] Bobbi Davalos MD [address] [place] [address] 02/26/2025 3:10 PM YOUNG ADULT LIBRARIAN Office Visit [facility] Gastroenterology [address] [place] [address] Suzette Cody MD [address] [place] [address] 03/28/2025 2:30 PM YOUNG ADULT LIBRARIAN Office Visit [facility]3] Colon and Rectal Surgery [address] [place] [address] [place] [address] [place] [address] 10/30/2025 3:00 PM CDT Office Visit [facility]3] Pulmonology [facility] [address] [facility] [place] [address] Everett Cam MD [address] [facility] [address] [place] [address] documented as of this encounter Procedures Procedure Name Priority Date/Time Associated Diagnosis Comments POC GLUCOSE Routine 05/15/2006 12:20 AM CDT CBC WITH DIFFERENTIAL Routine 05/10/2006 3:15 PM CDT CBC WITH DIFFERENTIAL Routine 05/10/2006 3:15 PM CDT BASIC METABOLIC PANEL Routine 05/10/2006 3:15 PM CDT documented in this encounter Results * (ABNORMAL) POC GLUCOSE (05/15/2006 12:20 AM CDT) [facility] GLUCOSE POC 130(H) 65 - 99 mg/dL INTERFACE SYSTEM 05/15/2006 12:2 0 AM CDT us Wendy Canales MD POINT OF CARE TESTING E dited INTERFACE SYSTEM Refer to clinic/hospital department * (ABNORMAL) CBC WITH DIFFERENTIAL (05/10/2006 3:15 PM CDT) [facility] NEUTROPHILS 66 45 - 70 % INTERFAC [...] HEMATOLOGY ORDERABLES E dited Performing Organization Address [facility] de Phone Number INTERFACE SYSTEM Refer to clinic/hospital department * (ABNORMAL) CBC WITH DIFFERENTIAL (05/10/2006 3:15 PM CDT) [facility] WBC 11.1(H) 4.0 - 9.8 K/uL INTERFACE [...] HEMATOLOGY ORDERABLES E dited Performing Organization Address [facility] Co de Phone Number INTERFACE SYSTEM [...] and non- Americans is available on the [facility] Intranet at: [email or web address] Select: Lab Policies and Procedures Select: Reference Ranges - GFR 05/10/2006 3:15 PM CDT us Wendy Canales MD CHEMISTRY ORDERABLES Ed ited INTERFACE SYSTEM Refer to clinic/hospital department documented in this encounter Visit Diagnoses Diagnosis Peritoneal adhesions (postoperative) (postinfection)- Primary documented in this encounter Additional Health Concerns Infection Onset Date Last Indicated Resolved Time R/O Respiratory 01/11/2023 01/11/2023 01/11/2023 7 :48 PM YOUNG ADULT LIBRARIAN R/O Respiratory 02/19/2024 02/19/2024 02/19/2024 1 1:21 AM YOUNG ADULT LIBRARIAN Influenza 02/19/2024 02/19/2024 02/26/2024 1:16 AM YOUNG ADULT LIBRARIAN R/O Respiratory 03/13/2024 03/13/2024 03/13/2024 4 :20 PM YOUNG ADULT LIBRARIAN Human Metapneumovirus 03/13/2024 03/13/20242024 1:16 AM YOUNG ADULT LIBRARIAN R/O C. diff 03/13/2024 03/13/2024 03/14/2024 8:00 PM YOUNG ADULT LIBRARIAN R/O C. diff 03/14/2024 03/14/2024 03/15/2024 6:17 PM YOUNG ADULT LIBRARIAN documented as of this encounter Care Teams Auto Wrecker Relationship Specialty Start Date End Date Juventino Howe MD [address] [facility] [address] [place] [address] PCP - General Internal Medicine 11/04/11 documented as of this encounter
--- OUTSIDE RECORDS SUMMARY | 2024-12-07 18:04 | XMS_ITS | Encounter Summary ---
Author Organization [facility] Address [address] [place] [address] Care Team Providers Care Crossword Puzzle Maker Name Role Phone Juventino Howe MD Primary Care Provider [phone] Encounter Details Date Type Department Care Team (Late st Contact Info) Description 09/30/2005 Orders Only [facility] Diabetic [facility] [address] [facility] [place] [address] Randal Clark MD [address] [place] [address] Social History Tobacco Use Types Packs/Day Years Used Date Smoking Tobacco: Never Assessed Comments Unknown Sex and Gender Information Value Date Recorded Sex Assigned at Not on file Legal Sex Female 3:38 AM CARBON ROD INSERTER Gender Identity Not on file Sexual Orientation Not on file documented as of this encounter Progress Notes * Randal Clark MD - 11/24/2007 10:54 PM CDT TIME:10:54 am PATIENT`S HOME PHONE: PATIENT`S WORK PHONE: PATIENT`S INSURANCE: [facility] WHO TOOK THE CALL: Asiya Corrigan [...] neck, axillae, or groin. NEUROLOGIC: CRANIAL NERVES: probe operator II-XII grossly intact. PSYCHIATRIC: Judgment appropriate. Oriented. [...] Info) Description 12/12/2024 4:30 PM CDT Appointment [facility] Therapy Services [place] [address] [phone] Cata Terry, [place] [address] [place] [address] Maegan Duncan, Physical Therapist 12/19/2024 9:30 AM CARBON ROD INSERTER Appointment [facility] [address] [place] [address] Anselmo Durham MD [address] [address] 12/19/2024 10:40 AM CARBON ROD INSERTER Office Visit [facility] EAR, NOSE AND THROAT [facility] 607 [facility] [address] [place] [address] Anselmo Durham MD 607 [facility] [address] [place] [address] 12/20/2024 2:00 PM CARBON ROD INSERTER Office Visit [facility] Internal Medicine Medical [place] [address] [facility] [address] [address] Juventino Howe MD [address] [facility] [address] [place] [address] 12/28/2024 2:45 PM CARBON ROD INSERTER Office Visit [facility] Endocrinology [address] [facility] [address] [place] [address] Sheldon Canales MD [address] [facility] [address] [place] [address] 01/04/2025 2:00 PM CARBON ROD INSERTER Office Visit [facility] Neurology [address] [facility] [address] [place] [address] Juventino Howe MD [address] [facility] [address] [place] [address] Bobbi Davalos MD [address] [facility] [address] [place] [address] 02/26/2025 3:10 PM CARBON ROD INSERTER Office Visit [facility] Gastroenterology [address] [address] [facility] [address] [place] [address] Suzette Cody MD [address] [facility] [address] [place] [address] 03/28/2025 2:30 PM CARBON ROD INSERTER Office Visit [facility] Colon and Rectal Surgery [address] [place] [address] [place] [address] [place] [address] 10/30/2025 3:00 PM CDT Office Visit [facility] Pulmonology [facility] [address] [facility] [address] [place] [address] Everett Cam MD [address] [place] [address] documented as of this encounter Visit Diagnoses Not on filedocumented in this encounter Additional Health Concerns Infection Onset Date Last Indicated Resolved Time R/O Respiratory 01/11/2023 01/11/2023 01/11/2023 7 :48 PM CARBON ROD INSERTER R/O Respiratory 02/19/2024 02/19/2024 02/19/2024 1 1:21 AM CARBON ROD INSERTER Influenza 02/19/2024 02/19/2024 02/26/2024 1:16 AM CARBON ROD INSERTER R/O Respiratory 03/13/2024 03/13/2024 03/13/2024 4 :20 PM CARBON ROD INSERTER Human Metapneumovirus 03/13/2024 03/13/20242024 1:16 AM CARBON ROD INSERTER R/O C. diff 03/13/2024 03/13/2024 03/14/2024 8:00 PM CARBON ROD INSERTER R/O C. diff 03/14/2024 03/14/2024 03/15/2024 6:17 PM CARBON ROD INSERTER documented as of this encounter Care Teams Crossword Puzzle Maker Relationship Specialty Start Date End Date Juventino Howe MD [address] [place] [address] PCP - General Internal Medicine 11/04/11 documented as of this encounter
--- OUTSIDE RECORDS SUMMARY | 2024-12-07 18:04 | XMS_ITS | Encounter Summary ---
Author Organization [facility] Address [address] [place] [address] Care Team Providers Care Net Developer Name Role Phone Juventino Howe MD Primary Care Provider [phone] Encounter Details Date Type Department Care Team (Latest Contact Info) Description 09/09/2005 Outpatient Historical HIS [facility] Lynne Navarro MD [address] [place] [address] Unspecified Constipation (Primary Dx) Social History Tobacco Use Types Packs/Day Years Used Date Smoking Tobacco: Never Assessed Comments Unknown Sex and Gender Information Value Date Recorded Sex Assigned at Not on file Legal Sex Female 3:38 AM STRAP SEWER Gender Identity Not on file Sexual Orientation Not on file documented as of this encounter Plan of Treatment Upcoming Encounters Date Type Department Care Team (Late st Contact Info) Description 12/12/2024 4:30 PM CDT Appointment [facility] [place] 755 [facility] 145 [place] [address] Cata Terry, MACARIO [address] [place] [address] Maegan Duncan, Physical Therapist 12/19/2024 9:30 AM STRAP SEWER Appointment [facility] Radiology S [facility] [address] [place] [address] Anselmo Durham MD 607 [facility] [address] [place] [address] 12/19/2024 10:40 AM STRAP SEWER Office Visit [facility] EAR, NOSE AND THROAT [facility] [address] [place] [address] Anselmo Durham MD [address] [place] [address] 12/20/2024 2:00 PM STRAP SEWER Office Visit [facility] Internal Medicine Medical [place] [address] [address] Juventino Howe MD [address] [place] [address] 12/28/2024 2:45 PM STRAP SEWER Office Visit [facility] Endocrinology [address] [place] [address] Sheldon Canales MD [address] [facility] [address] [place] [address] 01/04/2025 2:00 PM STRAP SEWER Office Visit [facility] Neurology [address] [place] [address] Juventino Howe MD [address] [place] [address] Bobbi Davalos MD [address] [place] [address] 02/26/2025 3:10 PM STRAP SEWER Office Visit [facility] Gastroenterology [place] [address] [place] [place] [address] Suzette Cody MD [address] [place] [address] 03/28/2025 2:30 PM STRAP SEWER Office Visit [facility] Colon and Rectal Surgery [address] [place] [address] [place] [address] [place] [address] 10/30/2025 3:00 PM CDT Office Visit [facility] Pulmonology [facility] [address] [facility] [address] [place] [address] Everett Cam MD [address] [facility] [address] [place] [address] documented as of this encounter Visit Diagnoses Diagnosis Unspecified constipation- Primary documented in this encounter Additional Health Concerns Infection Onset Date Last Indicated Resolved Time R/O Respiratory 01/11/2023 01/11/2023 01/11/2023 7 :48 PM STRAP SEWER R/O Respiratory 02/19/2024 02/19/2024 02/19/2024 1 1:21 AM STRAP SEWER Influenza 02/19/2024 02/19/2024 02/26/2024 1:16 AM STRAP SEWER R/O Respiratory 03/13/2024 03/13/2024 03/13/2024 4 :20 PM STRAP SEWER Human Metapneumovirus 03/13/2024 03/13/20242024 1:16 AM STRAP SEWER R/O C. diff 03/13/2024 03/13/2024 03/14/2024 8:00 PM STRAP SEWER R/O C. diff 03/14/2024 03/14/2024 03/15/2024 6:17 PM STRAP SEWER documented as of this encounter Care Teams Net Developer Relationship Specialty Start Date End Date Juventino Howe MD [address] [facility] [address] [place] [address] PCP - General Internal Medicine 11/04/11 documented as of this encounter
--- OUTSIDE RECORDS SUMMARY | 2024-12-07 18:04 | XMS_ITS | Encounter Summary ---
Author Organization [facility] Address [address] [place] [address] Care Team Providers Care Pediatrics Physician Name Role Phone Juventino Howe MD Primary Care Provider Encounter Details Date Type Department Care Team (Latest Contact Info) Description 06/14/2006 Outpatient Historical HIS [facility] Lynne Navarro MD [address] [place] [address] Unspecified Constipation (Primary Dx) Social History Tobacco Use Types Packs/Day Years Used Date Smoking Tobacco: Never Assessed Comments Unknown Sex and Gender Information Value Date Recorded Sex Assigned at Not on file Legal Sex Female 3:38 AM CREDIT CONTROL OFFICER Gender Identity Not on file Sexual Orientation Not on file documented as of this encounter Plan of Treatment Upcoming Encounters Date Type Department Care Team (Late st Contact Info) Description 12/12/2024 4:30 PM CDT Appointment [facility] [place] 755 [facility] 145 [place] [address] Cata Terry, [place] [address] [place] [address] Maegan Duncan, Physical Therapist 12/19/2024 9:30 AM CREDIT CONTROL OFFICER Appointment [facility] Radiology S [facility] [address] [place] [address] Anselmo Durham MD 607 [facility] [address] [place] [address] 12/19/2024 10:40 AM CREDIT CONTROL OFFICER Office Visit [facility] EAR, NOSE AND THROAT [facility] [address] [place] [address] Anselmo Durham MD [address] [place] [address] 12/20/2024 2:00 PM CREDIT CONTROL OFFICER Office Visit [facility] Internal Medicine Medical [place] [address] [address] Juventino Howe MD [address] [place] [address] 12/28/2024 2:45 PM CREDIT CONTROL OFFICER Office Visit [facility] Endocrinology [address] [place] [address] Shedlon Canales MD [address] [facility] [address] [place] [address] 01/04/2025 2:00 PM CREDIT CONTROL OFFICER Office Visit [facility] Neurology [address] [place] [address] Juventino Howe MD [address] [place] [address] Bobbi Davalos MD [address] [place] [address] 02/26/2025 3:10 PM CREDIT CONTROL OFFICER Office Visit [facility] Gastroenterology [place] [address] [place] [address] Suzette Cody MD [address] [place] [address] [place] [address] 03/28/2025 2:30 PM CREDIT CONTROL OFFICER Office Visit [facility] Colon and Rectal Surgery [address] [place] [address] [place] [address] [place] [address] 10/30/2025 3:00 PM CDT Office Visit [facility] Pulmonology [facility] [address] [place] [address] Everett Cam MD [address] [facility] [address] [place] [address] documented as of this encounter Visit Diagnoses Diagnosis Unspecified constipation- Primary documented in this encounter Additional Health Concerns Infection Onset Date Last Indicated Resolved Time R/O Respiratory 01/11/2023 01/11/2023 01/11/2023 7 :48 PM CREDIT CONTROL OFFICER R/O Respiratory 02/19/2024 02/19/2024 02/19/2024 1 1:21 AM CREDIT CONTROL OFFICER Influenza 02/19/2024 02/19/2024 02/26/2024 1:16 AM CREDIT CONTROL OFFICER R/O Respiratory 03/13/2024 03/13/2024 03/13/2024 4 :20 PM CREDIT CONTROL OFFICER Human Metapneumovirus 03/13/2024 03/13/20242024 1:16 AM CREDIT CONTROL OFFICER R/O C. diff 03/13/2024 03/13/2024 03/14/2024 8:00 PM CREDIT CONTROL OFFICER R/O C. diff 03/14/2024 03/14/2024 03/15/2024 6:17 PM CREDIT CONTROL OFFICER documented as of this encounter Care Teams Pediatrics Physician Relationship Specialty Start Date End Date Juventino Howe MD [address] [facility] [address] [place] [address] PCP - General Internal Medicine 11/04/11 documented as of this encounter
--- OUTSIDE RECORDS SUMMARY | 2024-12-07 18:04 | XMS_ITS | Encounter Summary ---
Author Organization [facility] Address [address] [place] [address] Care Team Providers Care Timber Management Assistant Name Role Phone Juventino Howe MD Primary Care Provider [phone] Encounter Details Date Type Department Care Team (Late st Contact Info) Description 11/13/2005 Orders Only [facility] Diabetic [facility] [address] [place] [address]. [address] [place] [address] Randal Clark MD [address] [place] [address] Social History Tobacco Use Types Packs/Day Years Used Date Smoking Tobacco: Never Assessed Comments Unknown Sex and Gender Information Value Date Recorded Sex Assigned at Not on file Legal Sex Female 3:38 AM AUTOMATED WEAVER Gender Identity Not on file Sexual Orientation Not on file documented as of this encounter Progress Notes * Randal Clark MD - 11/29/2007 7:33 PM CDT TIME:01:07 pm PATIENT`S HOME PHONE: PATIENT`S WORK PHONE: PATIENT`S INSURANCE: [employer] [facility] WHO TOOK THE CALL: Asiya Corrigan J GENERAL INFORMATION PATIENT STATUS: Established Patient. PCP: joanne. ALTERNATIVE PHONE NUMBER: [phone] WHO CALLED: Patient called. PHARMACY NUMBER: [phone] PROBLEMS: Pt calls complaining of sore throat, [...] call back wednesday with progress SECTION 2: RN/COAL TRIMMER RESPONSE: elba 11/13/05 at 01:36 pm No answer left [...] Info) Description 12/12/2024 4:30 PM CDT Appointment [facility] Therapy Services [place] [address] [facility] [address] [place] [address] Cata Terry, [place] [address] [facility] [place] [address] Maegan Duncan, Physical Therapist 12/19/2024 9:30 AM AUTOMATED WEAVER Appointment [facility] [place] [address] [place] [address] Anselmo Durham MD 607 [facility] [address] [place] [address] 12/19/2024 10:40 AM AUTOMATED WEAVER Office Visit [facility] EAR, NOSE AND THROAT [facility] [address] [facility] [address] [place] [address] Anselmo Durham MD 607 [facility] [address] [place] [address] 12/20/2024 2:00 PM AUTOMATED WEAVER Office Visit [facility] Internal Medicine Medical [place] [address] [facility] [facility] [address] [address] Juventino Howe MD [address] [facility] [address] [place] [address] 12/28/2024 2:45 PM AUTOMATED WEAVER Office Visit [facility] Endocrinology [address] [facility] [address] [place] [address] Sheldon Canales MD [address] [facility] [address] [place] [address] 01/04/2025 2:00 PM AUTOMATED WEAVER Office Visit [facility] Neurology [address] [address] [place] [address] Juventino Howe MD [address] [facility] [address] [place] [address] Bobbi Davalos MD [address] [place] [address] 02/26/2025 3:10 PM AUTOMATED WEAVER Office Visit [facility] Gastroenterology [place] [address] [facility] [address] [place] [address] Suzette Cody MD [address] [facility] [place] [address] [place] [address] 03/28/2025 2:30 PM AUTOMATED WEAVER Office Visit [facility] Colon and Rectal Surgery [address] [facility] [address] [facility] [address] [place] [address] [place] [address] [facility] [address] [place] [address] 10/30/2025 3:00 PM CDT Office Visit [facility] Pulmonology [facility] [address] [facility] [address] [place] [address] Everett Cam MD [address] [facility] [address] [place] [address] documented as of this encounter Visit Diagnoses Not on filedocumented in this encounter Additional Health Concerns Infection Onset Date Last Indicated Resolved Time R/O Respiratory 01/11/2023 01/11/2023 01/11/2023 7 :48 PM AUTOMATED WEAVER R/O Respiratory 02/19/2024 02/19/2024 02/19/2024 1 1:21 AM AUTOMATED WEAVER Influenza 02/19/2024 02/19/2024 02/26/2024 1:16 AM AUTOMATED WEAVER R/O Respiratory 03/13/2024 03/13/2024 03/13/2024 4 :20 PM AUTOMATED WEAVER Human Metapneumovirus 03/13/2024 03/13/20242024 1:16 AM AUTOMATED WEAVER R/O C. diff 03/13/2024 03/13/2024 03/14/2024 8:00 PM AUTOMATED WEAVER R/O C. diff 03/14/2024 03/14/2024 03/15/2024 6:17 PM AUTOMATED WEAVER documented as of this encounter Care Teams Timber Management Assistant Relationship Specialty Start Date End Date Juventino Howe MD [address] [facility] [address] [place] [address] PCP - General Internal Medicine 11/04/11 documented as of this encounter
--- OUTSIDE RECORDS SUMMARY | 2024-12-07 18:04 | XMS_ITS | Clinical Summary ---
Author Organization [facility] Address [address] [facility] [place] [address] Care Team Providers Care Programmer Analyst Health It Name Role Phone Juventino Howe MD Primary Care Provider [phone] Source Comments [facility],non-owned Affiliates and Associated Physician Practices is amultiple site organization consisting of ambulatory clinics and hospital sitesin [place], [place], [place] and [place]. This disclosure is being madepursuant to the Care Everywhere program and may not contain all information available regarding this patient. Last updated 17.[facility] DLS Allergies Active Allergy Reactions Criticality Noted Date [...] on file Legal Sex Female 6:32 PM RETORT PRESS OPERATOR Gender Identity Not on file Sexual [...] 06/30/2009 ZOSTER VACCINE (1 of 2) 06/30/2009 DEPRESSION SCREENING 02/16/2024 COVID-19 VACCINE (1 - 2023-2 5 season) 2024 INFLUENZA VACCINE (#1) 2024 Respiratory Syncytial Virus (RSV) Vaccine Pt: [...] age to complete this topic Care Teams Programmer Analyst Health It Relationship Specialty Start Date End Date Juventino Howe MD [address] [facility] [address] [place] [address] PCP - General 10/20/12
--- OUTSIDE RECORDS SUMMARY | 2024-12-07 18:04 | XMS_ITS | Encounter Summary ---
Author Organization [facility] Address [address] [place] [address] Care Team Providers Care Program Associate Name Role Phone Juventino Howe MD Primary Care Provider [phone] Encounter Details Date Type Department Care Team (Late st Contact Info) Description 11/01/2006 Outpatient Historical [facility], [address] Wendy Canales MD [address] [facility] [address] [address] Urinary Tract Infection, Site not Specified (Primary Dx) Social History Tobacco Use Types Packs/Day Years Used Date Smoking Tobacco: Never Assessed Comments Unknown Sex and Gender Information Value Date Recorded Sex Assigned at Not on file Legal Sex Female 3:38 AM FURNACE CHECKER Gender Identity Not on file Sexual Orientation Not on file documented as of this encounter Plan of Treatment Upcoming Encounters Date Type Department Care Team (Late Contact Info) Description 12/12/2024 4:30 PM CDT Appointment [facility] [place] 7[address] [facility] 145 [place] [address] Cata Terry, [place] [address] [place] [address] Maegan Duncan, Physical Therapist 12/19/2024 9:30 AM FURNACE CHECKER Appointment [facility] Rad[facility] S [facility] [address] [place] [address] Anselmo Durham MD 607 [facility] [address] [place] [address] 12/19/2024 10:40 AM FURNACE CHECKER Office Visit [facility] EAR, NOSE AND THROAT [facility] CANCER CENTER [address] [facility] [address] [place] [address] Anselmo Durham MD 607 [facility] [address] [place] [address] 12/20/2024 2:00 PM FURNACE CHECKER Office Visit [facility] Internal Medicine Medical [place] A [address] [facility] [address] [address] Juventino Howe MD [address] [facility] [address] [place] [address] 12/28/2024 2:45 PM FURNACE CHECKER Office Visit [facility] Endocrinology [address] [facility] [address] [place] [address] Sheldon Canales MD [address] [facility] [address] [place] [address] 01/04/2025 2:00 PM FURNACE CHECKER [facility] Neurology [address] [facility] [address] [place] [address] Juventino Howe MD [address] [facility] [address] [place] [address] Bobbi Davalos MD [address] [place] [address] 02/26/2025 3:10 PM FURNACE CHECKER Office Visit [facility] Gastroenterology [place] [address] [place] [address] Suzette Cody MD [address] [place] [address] 03/28/2025 2:30 PM FURNACE CHECKER Office Visit [facility] Colon and Rectal Surgery [address] [place] [address] [place] [address] [place] [address] 10/30/2025 3:00 PM CDT Office Visit [facility] Pulmonology [facility] [address] [facility] [address] [place] [address] Everett Cam MD [address] [facility] [address] [place] [address] documented as of this encounter Visit Diagnoses Diagnosis Urinary tract infection, site not specified- Primary documented in this encounter Additional Health Concerns Infection Onset Date Last Indicated Resolved Time R/O Respiratory 01/11/2023 01/11/2023 01/11/2023 7 :48 PM FURNACE CHECKER R/O Respiratory 02/19/2024 02/19/2024 02/19/2024 1 1:21 AM FURNACE CHECKER Influenza 02/19/2024 02/19/2024 02/26/2024 1:16 AM FURNACE CHECKER R/O Respiratory 03/13/2024 03/13/2024 03/13/2024 4 :20 PM FURNACE CHECKER Human Metapneumovirus 03/13/2024 03/13/20242024 1:16 AM FURNACE CHECKER R/O C. diff 03/13/2024 03/13/2024 03/14/2024 8:00 PM FURNACE CHECKER R/O C. diff 03/14/2024 03/14/2024 03/15/2024 6:17 PM FURNACE CHECKER documented as of this encounter Care Teams Program Associate Relationship Specialty Start Date End Date Juventino Howe MD [address] [facility] [address] [place] [address] PCP - General Internal Medicine 11/04/11 documented as of this encounter
--- OUTSIDE RECORDS SUMMARY | 2024-12-07 18:04 | XMS_ITS | Encounter Summary ---
Author Organization [facility] Address [address] [place] [address] Care Team Providers Care Social Media Editor Name Role Phone Juventino Howe MD Primary Care Provider [phone] Encounter Details Date Type Department Care Team (Latest Contact Info) Description 2006 Outpatient Historical HIS [facility] Lynne Navarro MD [address] [place] [address] Other Specified Circulatory System Disorders (Primary Dx) Social History Tobacco Use Types Packs/Day Years Used Date Smoking Tobacco: Never Assessed Comments Unknown Sex and Gender Information Value Date Recorded Sex Assigned at Not on file Legal Sex Female 3:38 AM TRANSMITTER ENGINEER IN CHARGE Gender Identity Not on file Sexual Orientation Not on file documented as of this encounter Plan of Treatment Upcoming Encounters Date Type Department Care Team (Late st Contact Info) Description 12/12/2024 4:30 PM CDT Appointment [facility] [place] 7[address] [facility] 145 [place] [address] Cata Terry, [place] [address] [place] [address] Maegan Duncan, Physical Therapist 12/19/2024 9:30 AM TRANSMITTER ENGINEER IN CHARGE Appointment [facility] Radiology S [facility] [address] [place] [address] Anselmo Durham MD 607 [facility] [address]00 [place] [address] 12/19/2024 10:40 AM TRANSMITTER ENGINEER IN CHARGE Office Visit [facility] EAR, NOSE AND THROAT [facility] CANCER CENTER [address] [place] [address] Anselmo Durham MD [address] [facility] [address] [place] [address] 12/20/2024 2:00 PM TRANSMITTER ENGINEER IN CHARGE Office Visit [facility] Internal Medicine Medical [place] [address] [address] Juventino Howe MD [address] [place] [address] 12/28/2024 2:45 PM TRANSMITTER ENGINEER IN CHARGE Office Visit [facility] Endocrinology [address] [place] [address] Sheldon Canales MD [address] [facility] [address] [place] [address] 01/04/2025 2:00 PM TRANSMITTER ENGINEER IN CHARGE Office Visit [facility] Neurology [address] [place] [address] Juventino Howe MD [address] [place] [address] Bobbi Davalos MD [address] [place] [address] 02/26/2025 3:10 PM TRANSMITTER ENGINEER IN CHARGE Office Visit [facility] Gastroenterology [place] [address] [place] [address] Suzette Cody MD [address] [place] [address] 03/28/2025 2:30 PM TRANSMITTER ENGINEER IN CHARGE Office Visit [facility] Colon and Rectal Surgery [address] [place] [address] [place] [address] [place] [address] 10/30/2025 3:00 PM CDT Office Visit [facility] Pulmonology [facility] [address] [facility] [address] [place] [address] Everett Cam MD [address] [facility] [address] [place] [address] documented as of this encounter [...] Respiratory 01/11/2023 01/11/2023 01/11/2023 7 :48 PM TRANSMITTER ENGINEER IN CHARGE R/O Respiratory 02/19/2024 02/19/2024 02/19/2024 1 1:21 AM TRANSMITTER ENGINEER IN CHARGE Influenza 02/19/2024 02/19/2024 02/26/2024 1:16 AM TRANSMITTER ENGINEER IN CHARGE R/O Respiratory 03/13/2024 03/13/2024 03/13/2024 4 :20 PM TRANSMITTER ENGINEER IN CHARGE Human Metapneumovirus 03/13/2024 03/13/20242024 1:16 AM TRANSMITTER ENGINEER IN CHARGE R/O C. diff 03/13/2024 03/13/2024 03/14/2024 8:00 PM TRANSMITTER ENGINEER IN CHARGE R/O C. diff 03/14/2024 03/14/2024 03/15/2024 6:17 PM TRANSMITTER ENGINEER IN CHARGE documented as of this encounter Care Teams Social Media Editor Relationship Specialty Start Date End Date Juventino Howe MD [address] [facility] [address] [place] [address] PCP - General Internal Medicine 11/04/11 documented as of this encounter
--- OUTSIDE RECORDS SUMMARY | 2024-12-07 18:04 | XMS_ITS | Encounter Summary ---
Author Organization [facility] Address [address] [place] [address] Care Team Providers Care Sheriffs Name Role Phone Juventino Howe MD Primary Care Provider [phone] Encounter Details Date Type Department Care Team (Late st Contact Info) Description 05/21/2006 Emergency [facility] Tex Spencer MD [address] 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 [place] [address] [facility] [address] [place] [address] Cata Terry, [place] [address] [place] [address] Maegan Duncan, Physical Therapist 12/19/2024 9:30 AM PATCH 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 [facility]ment [facility] Rad[facility] S [facility] [address] [place] [address] Anselmo Durham MD 607 [facility] [address] [place] [address] 12/19/2024 10:40 AM PATCH 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 Office Visit [facility] EAR, NOSE AND THROAT [facility] [address] [facility] [address] [place] [address] Anselmo Durham MD [address] [facility] [address] [place] [address] 12/20/2024 2:00 PM PATCH 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 Office Visit [facility] Internal Medicine Medical [place] [address] [facility] [address] [address] Juventino Howe MD [address] [facility] [address] [place] [address] 12/28/2024 2:45 PM PATCH 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 Office Visit [facility] Endocrinology [address] [facility] [address] [place] [address] Sehldon Canales MD [address] [facility] [address] [place] [address] 01/04/2025 2:00 PM PATCH 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 Office Visit [facility] Neurology [address] [facility] [address] [place] [address] Juventino Howe MD [address] [facility] [address] [place] [address] Bobbi Davalos MD [address] [facility] [address] [place] [address] 02/26/2025 3:10 PM PATCH 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 Office Visit [facility] Gastroenterology [place] [address] [facility] [address] [place] [address] Suzette Cody MD [address] [facility] [address] [place] [address] 03/28/2025 2:30 PM PATCH 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 Office Visit [facility] Colon and Rectal Surgery [address] [place] [address] [place] [address] [place] [address] 10/30/2025 3:00 PM CDT Office Visit [facility] Pulmonology [facility] [address] [facility] [address] [place] [address] Everett Cam MD [address] [facility] [address] [place] [address] documented as of this encounter [...] INTERFACE SYSTEM 05/22/2006 12:2 4 AM CDT Result [facility] Tex Spencer MD HEMATOLOGY ORDERABLES Edited Performing Organization Address [facility] Phone Number INTERFACE SYSTEM Refer to [...] INTERFACE SYSTEM 05/22/2006 12:2 4 AM CDT Result [facility] Tex Spencer MD HEMATOLOGY ORDERABLES Edited Performing Organization Address [facility] Phone Number INTERFACE SYSTEM Refer to clinic/hospital department * C-REACTIVE PROTEIN (05/22/2006 12:24 AM CDT) CRP <0.2 0.0 - 0.8 mg/dL INTERFACE SYSTEM 05/22/2006 12:2 4 AM CDT Result [facility] Tex Spencer MD CHEMISTRY ORDERABLES Edited Performing Organization Address [facility] Phone Number INTERFACE SYSTEM Refer to [...] is available on the [facility] Intranet at: [email or web address] Select: Lab Policies and Procedures Select: Reference Ranges - GFR 05/22/2006 12:2 4 AM CDT us Tex Spencer MD CHEMISTRY ORDERABLES Edited INTERFACE SYSTEM Refer to clinic/hospital department documented in this encounter Visit Diagnoses Diagnosis Unspecified symptom associated with female genital organs- Primary documented in this encounter Additional Health Concerns Infection Onset Date Last Indicated Resolved Time R/O Respiratory 01/11/2023 01/11/2023 01/11/2023 7 :48 PM PATCH 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 R/O Respiratory 02/19/2024 02/19/2024 02/19/2024 1 1:21 AM PATCH 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 Influenza 02/19/2024 02/19/2024 02/26/2024 1:16 AM PATCH 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 R/O Respiratory 03/13/2024 03/13/2024 03/13/2024 4 :20 PM PATCH 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 Human Metapneumovirus 03/13/2024 03/13/20242024 1:16 AM PATCH 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 R/O C. diff 03/13/2024 03/13/2024 03/14/2024 8:00 PM PATCH 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 R/O C. diff 03/14/2024 03/14/2024 03/15/2024 6:17 PM PATCH 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 documented as of this encounter Care Teams Sheriffs Relationship Specialty Start Date End Date Juventino Howe MD [address] [facility] [address] [place] [address] PCP - General Internal Medicine 11/04/11 documented as of this encounter
--- OUTSIDE RECORDS SUMMARY | 2024-12-07 18:04 | XMS_ITS | Encounter Summary ---
Author Organization [facility] Address [address] [place] [address] Care Team Providers Care Security Police Name Role Phone Juventino Howe MD Primary Care Provider [phone] Encounter Details Date Type Department Care Team (Late st Contact Info) Description 02/16/2007 Outpatient Historical [facility] Gadiel Price Jr., MD NO ADDRESS ON FILE Abdominal or Pelvic Swelling, Mass, or Lump Social History Tobacco Use Types Packs/Day Years Used Date Smoking Tobacco: Never Assessed Comments Unknown Sex and Gender Information Value Date Recorded Sex Assigned at Not on file Legal Sex Female 3:38 AM PCAT INSTRUCTOR Gender Identity Not on file Sexual Orientation Not on file documented as of this encounter Plan of Treatment Upcoming Encounters Date Type Department Care Team (Late st Contact Info) Description 12/12/2024 4:30 PM CDT Appointment [facility] Therapy Services [place] [address] [facility] [address] [place] [address] Cata Terry, [place]AR[place] [address] [place] [address] Maegan Duncan, Physical Therapist 12/19/2024 9:30 AM PCAT INSTRUCTOR Appointment [facility] Radiology [address] [facility] [address] [place] [address] Anselmo Durham MD 607 [facility] [address] [place] [address] 12/19/2024 10:40 AM PCAT INSTRUCTOR Office Visit [facility] EAR, NOSE AND THROAT [facility] [address] [facility] [address] [place] [address] Anselmo Durham MD [address] [facility] [address] [place] [address] 12/20/2024 2:00 PM PCAT INSTRUCTOR Office Visit [facility] Internal Medicine Medical [place] [address] [address] Juventino Howe MD [address] [facility] [address] [place] [address] 12/28/2024 2:45 PM PCAT INSTRUCTOR Office Visit [facility] Endocrinology [address] [facility] [address] [place] [address] Sheldon Canales MD [address] [facility] [address] [place] [address] 01/04/2025 2:00 PM PCAT INSTRUCTOR Office Visit [facility] Neurology [address] [facility] [address] [place] [address] Juventino Howe MD [address] [facility] [address] [place] [address] Bobbi Davalos MD [address] [place] [address] 02/26/2025 3:10 PM PCAT INSTRUCTOR Office Visit [facility] Gastroenterology [address] [place] [address] Suzette Cody MD [address] [place] [address] 03/28/2025 2:30 PM PCAT INSTRUCTOR Office Visit [facility] Colon and Rectal Surgery [address] [place] [address] [place] [address] [place] [address] 10/30/2025 3:00 PM CDT Office Visit [facility] Pulmonology [facility] [address] [place] [address] Everett Cam MD [address] [facility] [address] [place] [address] documented as of this encounter Procedures Procedure Name Priority Date/Time Associated Diagnosis Comments CANCER ANTIGEN 125 Routine 02/16/2007 3: 51 PM PCAT INSTRUCTOR documented in this encounter Results * CANCER ANTIGEN 125 (02/16/2007 3:51 PM PCAT INSTRUCTOR) CA 125 9 <=34 U/mL INTERFACE SYSTEM [...] a cancer screening test. 02/16/2007 3:51 PM PCAT INSTRUCTOR us Gadiel Price Jr., MD CHEMISTRY ORDERABLES Ed ited INTERFACE SYSTEM Refer to clinic/hospital department documented in this encounter Visit Diagnoses Diagnosis Abdominal or pelvic swelling, mass, or lump documented in this encounter Additional Health Concerns Infection Onset Date Last Indicated Resolved Time R/O Respiratory 01/11/2023 01/11/2023 01/11/2023 7 :48 PM PCAT INSTRUCTOR R/O Respiratory 02/19/2024 02/19/2024 02/19/2024 1 1:21 AM PCAT INSTRUCTOR Influenza 02/19/2024 02/19/2024 02/26/2024 1:16 AM PCAT INSTRUCTOR R/O Respiratory 03/13/2024 03/13/2024 03/13/2024 4 :20 PM PCAT INSTRUCTOR Human Metapneumovirus 03/13/2024 03/13/20242024 1:16 AM PCAT INSTRUCTOR R/O C. diff 03/13/2024 03/13/2024 03/14/2024 8:00 PM PCAT INSTRUCTOR R/O C. diff 03/14/2024 03/14/2024 03/15/2024 6:17 PM PCAT INSTRUCTOR documented as of this encounter Care Teams Security Police Relationship Specialty Start Date End Date Juventino Howe MD [address] [facility] [address] [place] [address] PCP - General Internal Medicine 11/04/11 documented as of this encounter
--- OUTSIDE RECORDS SUMMARY | 2024-12-07 18:04 | XMS_ITS | Encounter Summary ---
Author Organization [facility] Address [address] [place] [address] Care Team Providers Care Blast Furnace Keeper Name Role Phone Juventino Howe MD Primary Care Provider [phone] Encounter Details Date Type Department Care Team (Late st Contact Info) Description 05/10/2006 Outpatient Historical [facility] Support Serv. (Adt Cardiology-[facility]) [address] [place] [address] Franklin Clemens MD NO ADDRESS ON FILE Social History Tobacco Use Types Packs/Day Years Used Date Smoking Tobacco: Never Assessed Comments Unknown Sex and Gender Information Value Date Recorded Sex Assigned at Not on file Legal Sex Female 3:38 AM FIRE FIGHTER AIRPORT Gender Identity Not on file Sexual Orientation Not on file documented as of this encounter Plan of Treatment Upcoming Encounters Date Type Department Care Team (Late st Contact Info) Description 12/12/2024 4:30 PM CDT Appointment [facility] [place] [address] [facility] [address] [place] [address] Cata Terry, [place] [address] [place] [address] Maegan Duncan, Physical Therapist 12/19/2024 9:30 AM FIRE FIGHTER AIRPORT Appointment [facility] Radiology S [facility] [address] [place] [address] Anselmo Durham MD [address] [facility] [address] [place] [address] 12/19/2024 10:40 AM FIRE FIGHTER AIRPORT Office Visit [facility] EAR, NOSE AND THROAT [facility] [address] [facility] [address] [place] [address] Anselmo Durham MD [address] [facility] [address] [place] [address] 12/20/2024 2:00 PM FIRE FIGHTER AIRPORT Office Visit [facility] Internal Medicine Medical [place] [address] [facility] [address] [address] Juventino Howe MD [address] [facility] [address] [place] [address] 12/28/2024 2:45 PM FIRE FIGHTER AIRPORT Office Visit [facility] Endocrinology [address] [facility] [address] [place] [address] Sheldon Canales MD [address] [facility] [address] [place] [address] 01/04/2025 2:00 PM FIRE FIGHTER AIRPORT Office [facility] Neurology [address] [facility] [address] [place] [address] Juventino Howe MD [address] [facility] [address] [place] [address] Bobbi Davalos MD [address] [place] [address] 02/26/2025 3:10 PM FIRE FIGHTER AIRPORT Office [facility] Gastroenterology [place] [address] [place] [address] Suzette Cody MD [address] [place] [address] 03/28/2025 2:30 PM FIRE FIGHTER AIRPORT Office Visit [facility] Colon and Rectal Surgery [address] [place] [address] [place] [address] [place] [address] 10/30/2025 3:00 PM CDT Office Visit [facility] Pulmonology [facility] [address] [place] [address] Everett Cam MD [address] [facility] [address] [place] [address] documented as of this encounter Visit Diagnoses Not on filedocumented in this encounter Additional Health Concerns Infection Onset Date Last Indicated Resolved Time R/O Respiratory 01/11/2023 01/11/2023 01/11/2023 7 :48 PM FIRE FIGHTER AIRPORT R/O Respiratory 02/19/2024 02/19/2024 02/19/2024 1 1:21 AM FIRE FIGHTER AIRPORT Influenza 02/19/2024 02/19/2024 02/26/2024 1:16 AM FIRE FIGHTER AIRPORT R/O Respiratory 03/13/2024 03/13/2024 03/13/2024 4 :20 PM FIRE [employer]HTER AIRPORT Human Metapneumovirus 03/13/2024 03/13/20242024 1:16 AM FIRE FIGHTER AIRPORT R/O C. diff 03/13/2024 03/13/2024 03/14/2024 8:00 PM FIRE FIGHTER AIRPORT R/O C. diff 03/14/2024 03/14/2024 03/15/2024 6:17 PM [employer] documented as of this encounter Care Teams Blast Furnace Keeper Relationship Specialty Start Date End Date Juventino Howe MD [address] [facility] [address] [place] [address] PCP - General Internal Medicine 9/19/12 documented as of this encounter
--- OUTSIDE RECORDS SUMMARY | 2024-12-07 18:05 | XMS_ITS | Encounter Summary ---
Author Organization [facility] Address [address] [place] [address] Care Team Providers Care Medical Laboratory Technologist Name Role Phone Juventino Howe MD Primary Care Provider [phone] Encounter Details Date Type Department Care Team (Late st Contact Info) Description 08/05/2005 Outpatient Historical [place] [address] [facility] [address] [place] [address] [place] [address] [place] [address] Unspecified Constipation (Primary Dx) Social History Tobacco Use Types Packs/Day Years Used Date Smoking Tobacco: Never Assessed Comments Unknown Sex and Gender Information Value Date Recorded Sex Assigned at Not on file Legal Sex Female 3:38 AM LOGISTICS AND PLANNING MANAGER Gender Identity Not on file Sexual Orientation Not on file documented as of this encounter Plan of Treatment Upcoming Encounters Date Type Department Care Team (Late Contact Info) Description 12/12/2024 4:30 PM CDT [facility]ment [facility] [place] [address] [facility] [address] [place] [address] [place] [address] [place] [address] Maegan Duncan, Physical Therapist 12/19/2024 9:30 AM LOGISTICS AND PLANNING MANAGER Appointment [facility] Radiology [address] [place] [address] Anselmo Durham MD [address] [facility] [address] [place] [address] 12/19/2024 10:40 AM LOGISTICS AND PLANNING MANAGER Office Visit [facility] EAR, NOSE AND THROAT [facility] [address] [facility] [address] [place] [address] Anselmo Durham MD [address] [facility] [address] [place] [address] 12/20/2024 2:00 PM LOGISTICS AND PLANNING MANAGER Office Visit [facility] Internal Medicine Medical [place] [address] [facility] [address] [address] Juventino Howe MD [address] [facility] [address] [place] [address] 12/28/2024 2:45 PM LOGISTICS AND PLANNING MANAGER Office Visit [facility] Endocrinology [address] [facility] [address] [place] [address] Sheldon Canales MD [address] [facility] [address] [place] [address] 01/04/2025 2:00 PM LOGISTICS AND PLANNING MANAGER Office Visit [facility] Neurology [address] [facility] [address] [place] [address] Juventino Howe MD [address] [facility] [address] [place] [address] Bobbi Davalos MD [address] [facility] [address] [place] [address] 02/26/2025 3:10 PM LOGISTICS AND PLANNING MANAGER Office Visit [facility] Gastroenterology [address] [address] [facility] [address] [place] [address] Suzette Cody MD [address] [facility] [address] [place] [address] 03/28/2025 2:30 PM LOGISTICS AND PLANNING MANAGER Office Visit [facility] Colon and Rectal Surgery [address] [place] [address] [place] [address] [place] [address] 10/30/2025 3:00 PM CDT Office Visit [facility] Pulmonology [facility] [address] [facility] [address] [place] [address] Everett Cam MD [address] [facility] [address] [place] [address] documented as of this encounter [...] Anton Robertson MD URINE ORDERABLES Final Result Performing Organization Address [facility] de Phone Number INTERFACE SYSTEM [...] Robertson MD HEMATOLOGY ORDERABLES Final Res ult Performing Organization Address [facility] de Phone Number INTERFACE SYSTEM [...] Robertson MD HEMATOLOGY ORDERABLES Final Res ult Performing Organization Address [facility] Phone Number INTERFACE SYSTEM Refer to clinic/hospital department * LIPASE (08/05/2005 9:30 PM CDT) LIPASE 38 13 - 60 U/L INTERFAC E SYSTEM 08/05/2005 9:30 PM CDT Anton Robertson MD CHEMISTRY ORDERABLES Final Resu lt Performing Organization Address [facility] Phone Number INTERFACE SYSTEM Refer to clinic/hospital department * AMYLASE (08/05/2005 9:30 PM CDT) AMYLASE 35 28 - 100 U/L INTERFACE SYSTEM 08/05/2005 9:30 PM CDT Anton Robertson MD CHEMISTRY ORDERABLES Final Resu lt Performing Organization Address [facility] Phone Number INTERFACE SYSTEM Refer to clinic/hospital department documented in this encounter Visit Diagnoses Diagnosis Unspecified constipation- Primary documented in this encounter Additional Health Concerns Infection Onset Date Last Indicated Resolved Time R/O Respiratory 01/11/2023 01/11/2023 01/11/2023 7 :48 PM LOGISTICS AND PLANNING MANAGER R/O Respiratory 02/19/2024 02/19/2024 02/19/2024 1 1:21 AM LOGISTICS AND PLANNING MANAGER Influenza 02/19/2024 02/19/2024 02/26/2024 1:16 AM LOGISTICS AND PLANNING MANAGER R/O Respiratory 03/13/2024 03/13/2024 03/13/2024 4 :20 PM LOGISTICS AND PLANNING MANAGER Human Metapneumovirus 03/13/2024 03/13/2024 2025 1:16 AM LOGISTICS AND PLANNING MANAGER R/O C. diff 03/13/2024 03/13/2024 03/14/2024 8:00 PM LOGISTICS AND PLANNING MANAGER R/O C. diff 03/14/2024 03/14/2024 03/15/2024 6:17 PM LOGISTICS AND PLANNING MANAGER documented as of this encounter Care Teams Medical Laboratory Technologist Relationship Specialty Start Date End Date Juventino Howe MD [address] [facility] [address] [place] [address] PCP - General Internal Medicine 11/04/11 documented as of this encounter
--- OUTSIDE RECORDS SUMMARY | 2024-12-07 18:05 | XMS_ITS | Encounter Summary ---
Author Organization [facility] Address [address] [place] [address] Care Team Providers Care Security And Privacy Consultant Name Role Phone Juventino Howe MD Primary Care Provider [phone] Encounter Details Date Type Department Care Team [...] on file Legal Sex Female 3:38 AM HOIST CYLINDER LOADER Gender Identity Not on file Sexual Orientation Not on file documented as of this encounter Plan of Treatment Upcoming Encounters Date Type Department Care Team (Late st Contact Info) Description 12/12/2024 4:30 PM CDT [facility]ment [facility] [place] [address] [facility] [address] [place] [address] Cata Terry, [place] [address] [place] [address] Maegan Duncan, Physical Therapist 12/19/2024 9:30 AM HOIST CYLINDER LOADER [facility] [address] [place] [address] Anselmo Durham MD [address] [facility] [address] [place] [address] 12/19/2024 10:40 AM HOIST CYLINDER LOADER Office Visit [facility] EAR, NOSE AND THROAT [facility] CANCER CENTER [address] [facility] [address] [place] [address] Anselmo Durham MD [address] [facility] [address] [place] [address] 12/20/2024 2:00 PM HOIST CYLINDER LOADER Office Visit [facility] Internal Medicine Medical [place] [address] [facility] [address] [address] Juventino Howe MD [address] [facility] [address] [place] [address] 12/28/2024 2:45 PM HOIST CYLINDER LOADER Office Visit [facility] Endocrinology [address] [facility] [address] [place] [address] Sheldon Canales MD [address] [facility] [address] [place] [address] 01/04/2025 2:00 PM HOIST CYLINDER LOADER Office Visit [facility] Neurology [address] [facility] [address] [place] [address] Juventino Howe MD [address] [facility] [address] [place] [address] Bobbi Davalos MD [address] [facility] [address] [place] [address] 02/26/2025 3:10 PM HOIST CYLINDER LOADER Office Visit [facility] Gastroenterology [address] [facility] [address] [place] [address] Suzette Cody MD [address] [facility] [address] [place] [address] 03/28/2025 2:30 PM HOIST CYLINDER LOADER Office Visit [facility] Colon and Rectal Surgery [address] [place] [address] [place] [address] [place] [address] 10/30/2025 3:00 PM CDT Office Visit [facility] Pulmonology [facility] [address] [facility] [address] [place] [address] Everett Cam MD [address] [facility] [address] [place] [address] documented as of this encounter [...] PM CDT Narrative 08/27/2008 2:[address] [facility] [address] [place], [place] [address] Admit Date: 08/27/2008 DUYEN OROSCO Sex: F Admit Prov: TIMO SALAS Angela Date: 1960 Primary Care Prov: CMRN: [id number] Room: [facility] SSN: [id number] IMAGING SERVICES Ordering Prov: N/A Accession Number: [id number] Interpretation BONE MINERAL DENSITY (DEXA) HISTORY: 48 year old female with long-term steroid use needing evaluation for osteoporosis. PROCEDURE: Using a Germin8 dual energy x-ray absorptiometry system, the patient's [...] Procedure Note Gay Bush, DO - 08/27/2008 [facility] [address] [place], [place] [address] Admit Date: 08/27/2008 DUYEN OROSCO Sex: F Admit Prov: TIMO SALAS Angela Date: 1960 Primary Care Prov: CMRN: [id number] [id number] IMAGING SERVICES Ordering Prov: N/A Interpretation BONE MINERAL DENSITY (DEXA) HISTORY: 48 year old female with long-term steroid use needing evaluationfor osteoporosis. PROCEDURE: Using a Germin8 dual energy x-ray absorptiometry system, the patient's [...] Respiratory 01/11/2023 01/11/2023 01/11/2023 7 :48 PM HOIST CYLINDER LOADER R/O Respiratory 02/19/2024 02/19/2024 02/19/2024 1 1:21 AM HOIST CYLINDER LOADER Influenza 02/19/2024 02/19/2024 02/26/2024 1:16 AM HOIST CYLINDER LOADER R/O Respiratory 03/13/2024 03/13/2024 03/13/2024 4 :20 PM HOIST CYLINDER LOADER Human Metapneumovirus 03/13/2024 03/13/20242024 1:16 AM HOIST CYLINDER LOADER R/O C. diff 03/13/2024 03/13/2024 03/14/2024 8:00 PM HOIST CYLINDER LOADER R/O C. diff 03/14/2024 03/14/2024 03/15/2024 6:17 PM HOIST CYLINDER LOADER documented as of this encounter Care Teams Security And Privacy Consultant Relationship Specialty Start Date End Date Juventino Howe MD [address] [facility] [address] [place] [address] PCP - General Internal Medicine 11/04/11 documented as of this encounter
--- OUTSIDE RECORDS SUMMARY | 2024-12-07 18:05 | XMS_ITS | Encounter Summary ---
Author Organization [facility] Address [address] [place] [address] Care Team Providers Care Clinical Practice Consultant Name Role Phone Juventino Howe MD Primary Care Provider [phone] Encounter Details Date Type Department Care Team (Late Contact Info) Description 07/13/2008 Outpatient Historical [facility] Lynne Escobar MD [address] [place] [address] Social History Tobacco Use Types Packs/Day Years Used Date Smoking Tobacco: Never Alcohol Use Standard Drinks/Week Comments No 0 (1 standard drink = 0.6 oz pur e alcohol) Comments No Sex and Gender Information Value Date Recorded Sex Assigned at Not on file Legal Sex Female 3:38 AM STEAM AND POWER SUPERINTENDENT Gender Identity Not on file Sexual Orientation Not on file documented as of this encounter Plan of Treatment Upcoming Encounters Date Type Department Care Team ([facility] Contact Info) Description 12/12/2024 4:30 PM CDT Appointment [facility] Therapy Services [place] 7[address] [facility] 145 [place] [address] Cata Terry, [place] [address] [place] [address] Maegan Duncan, Physical Therapist 12/19/2024 9:30 AM STEAM AND POWER SUPERINTENDENT Appointment [facility] S [facility] [address] [place] [address] Anselmo Durham MD 601 [facility] [address] [place] [address] 12/19/2024 10:40 AM STEAM AND POWER SUPERINTENDENT Office Visit [facility] EAR, NOSE AND THROAT [facility] [address] [facility] [address] [place] [address] Anselmo Durham MD [address] [facility] [address] [place] [address] 12/20/2024 2:00 PM STEAM AND POWER SUPERINTENDENT Office Visit [facility] Internal Medicine Medical [place] [address] [facility] [address] [address] Juventino Howe MD [address] [facility] [address] [place] [address] 12/28/2024 2:45 PM STEAM AND POWER SUPERINTENDENT Office Visit [facility] Endocrinology [address] [facility] [address] [place] [address] Sheldon Canales MD [address] [facility] [address] [place] [address] 01/04/2025 2:00 PM STEAM AND POWER SUPERINTENDENT Office Visit [facility] Neurology [address] [facility] [address] [place] [address] Juventino Howe MD [address] [facility] [address] [place] [address] Bobbi Davalos MD [address] [facility] [address] [place] [address] 02/26/2025 3:10 PM STEAM AND POWER SUPERINTENDENT Office Visit [facility] Gastroenterology [address] [facility] [address] [place] [address] Suzette Cody MD [address] [facility] [address] [place] [address] 03/28/2025 2:30 PM STEAM AND POWER SUPERINTENDENT Office Visit [facility] Colon and Rectal Surgery [address] [facility] [address] [place] [address] [place] [address] [place] [address] 10/30/2025 3:00 PM CDT Office Visit [facility] Pulmonology [facility] [address] [facility] [address] [place] [address] Everett Cam MD [address] [facility] [address] [place] [address] documented as of this encounter Visit Diagnoses Not on filedocumented in this encounter Additional Health Concerns Infection Onset Date Last Indicated Resolved Time R/O Respiratory 01/11/2023 01/11/2023 01/11/2023 7 :48 PM STEAM AND POWER SUPERINTENDENT R/O Respiratory 02/19/2024 02/19/2024 02/19/2024 1 1:21 AM STEAM AND POWER SUPERINTENDENT Influenza 02/19/2024 02/19/2024 02/26/2024 1:16 AM STEAM AND POWER SUPERINTENDENT R/O Respiratory 03/13/2024 03/13/2024 03/13/2024 4 :20 PM STEAM AND POWER SUPERINTENDENT Human Metapneumovirus 03/13/2024 03/13/20242024 1:16 AM STEAM AND POWER SUPERINTENDENT R/O C. diff 03/13/2024 03/13/2024 03/14/2024 8:00 PM STEAM AND POWER SUPERINTENDENT R/O C. diff 03/14/2024 03/14/2024 03/15/2024 6:17 PM STEAM AND POWER SUPERINTENDENT documented as of this encounter Care Teams Clinical Practice Consultant Relationship Specialty Start Date End Date Juventino Howe MD [address] [place] [address] PCP - General Internal Medicine 11/04/11 documented as of this encounter
--- OUTSIDE RECORDS SUMMARY | 2024-12-07 18:05 | XMS_ITS | Encounter Summary ---
Author Organization [facility] Address [address] [place] [address] Care Team Providers Care Crusher Supervisor Name Role Phone Juventino Howe MD Primary Care Provider [phone] Encounter Details Date Type Department Care Team (Late Contact Info) Description 07/10/2008 Emergency [facility] Er, Authorized P NO ADDRESS ON FILE Franklin Khan Jr., MD [address] [place] [address] Abdominal Pain, Other Specified Site; Other Acute Pain; Nausea Alone; Unspecified Constipation Social History Tobacco Use Types Packs/Day Years Used Date Smoking Tobacco: Never Alcohol Use Standard Drinks/Week Comments No 0 (1 standard drink = 0.6 oz pur e alcohol) Comments No Sex and Gender Information Value Date Recorded Sex Assigned at Not on file Legal Sex Female 3:38 AM SUPERVISOR MIXING Gender Identity Not on file Sexual Orientation Not on file documented as of this encounter Plan of Treatment Upcoming Encounters Date Type Department Care Team (Late Contact Info) Description 12/12/2024 4:30 PM CDT [facility]ment [facility] [place] [address] [facility] [address] [place] [address] [place] [address] [place] [address] Maegan Duncan, Physical Therapist 12/19/2024 9:30 AM SUPERVISOR MIXING Appointment [facility] Radiology S [facility] [address] [place] [address] Anselmo Durham MD 607 [facility] [address] [place] [address] 12/19/2024 10:40 AM SUPERVISOR MIXING Office Visit [facility] EAR, NOSE AND THROAT [facility] [address] [facility] [address] [place] [address] Anselmo Durham MD [address] [facility] [address] [place] [address] 12/20/2024 2:00 PM SUPERVISOR MIXING Office Visit [facility] Internal Medicine Medical [place] [address] [facility] [address] [address] Juventino Howe MD [address] [facility] [address] [place] [address] 12/28/2024 2:45 PM SUPERVISOR MIXING Office Visit [facility] Endocrinology [address] [facility] [address] [place] [address] Sheldon Canales MD [address] [facility] [address] [place] [address] 01/04/2025 2:00 PM SUPERVISOR MIXING Office Visit [facility] Neurology [address] [facility] [address] [place] [address] Juventino Howe MD [address] [facility] [address] [place] [address] Bobbi Davalos MD [address] [facility] [address] [place] [address] 02/26/2025 3:10 PM SUPERVISOR MIXING Office Visit [facility] Gastroenterology [address] [address] [facility] [address] [place] [address] Suzette Cody MD [address] [facility] [address] [place] [address] 03/28/2025 2:30 PM SUPERVISOR MIXING Office Visit [facility] Colon and Rectal Surgery [address] [place] [address] [place] [address] [place] [address] 10/30/2025 3:00 PM CDT Office Visit [facility] Pulmonology [facility] [address] [facility] [address] [place] [address] Everett Cam MD [address] [facility] [address] [place] [address] documented as of this encounter [...] PM CDT Narrative 07/10/2008 8:44 PM CDT [facility] [address] [place], [place] [address] Admit Date: 07/10/2008 DUYEN OROSCO Sex: F Admit Prov: ER, AUTHORIZED P Date: 1960 Primary Care Prov: PCP, NONE CMRN: [id number] Room: [facility] N: [address] [place] [address] IMAGING SERVICES Ordering Prov: N/A Accession Number: [id number] Interpretation COMPUTED TOMOGRAPHY EXAMINATION OF ABDOMEN AND [...] Procedure Note Bob Mittal MD - 07/10/2008 [facility] [address] [place], [place] [address] Admit Date: 07/10/2008 DUYEN OROSCO Sex: F Admit Prov: ER, AUTHORIZED P Date: 1960 Primary Care Prov: PCP, NONE CMRN: [id number] [id number] IMAGING SERVICES Ordering Prov: N/A Interpretation COMPUTED [...] CDT) LIPASE 44 13 - 60 U/L [facility] 07/10/2008 6:11 PM CDT 07/10/2008 6:19 PM CDT Franklin Khan Jr., MD CHEMISTRY ORDERABLES Final Result Performing Organization Address [facility] de Phone Number INTERFACE SYSTEM Refer to clinic/hospital department [facility] CLIA# [id number] [address] [place] [address] * C-REACTIVE PROTEIN (07/10/2008 6:11 PM CDT) [facility] CRP <0.2 0.0 - 0.8 mg/dL [facility] 07/10/2008 6:11 PM CDT 07/10/2008 6:19 PM CDT Franklin Khan Jr., MD CHEMISTRY ORDERABLES Final Result Performing Organization Address [facility] Phone Number INTERFACE SYSTEM Refer to clinic/hospital department [facility] CLIA# [id number] [address] [facility] [place] [address] * (ABNORMAL) COMPREHENSIVE METABOLIC PANEL (07/10/2008 6:11 PM CDT) CHLORIDE 103 96 - 108 mmol/L [facility] ALBUMIN 4.6 3.4 - 4.8 g/dL [facility] CREATININE 0.66 0.51 - 0.95 mg/dL [facility] SODIUM 141 135 - 145 mmol/L [facility] ALT 18 0 - 31 U/L [facility] ALKALINE PHOSPHATASE 124(H) 35 - 104 U/L [facility] BILIRUBIN TOTAL 0.4 0.2 - 1.0 mg/dL [facility] CO2 22 22 - 30 mmol/L [facility] TOTAL PROTEIN 7.3 6.3 - 8.6 g/dL [facility] POTASSIUM 3.6 3.5 - 4.9 mmol/L [facility] GLUCOSE 91 65 - 99 mg/dL [facility] AST 19 12 - 32 U/L [facility] BUN 5(L) 6 - 20 mg/dL [facility] CALCIUM 9.9 8.6 - 10.2 mg/dL [facility] GFR, >60 >=60 mL/min/1. 7 sq meter [facility] GFR >60 >=60 mL/min/1. 7 sq meter [facility] Comment: Modification of Diet in Renal Disease (MDRD) study formula. Estimated GFR rate interpretative information for both Americans and non- Americans is available on the [facility] Intranet at: [email or web address] Select: Lab Policies and Procedures Select: Reference Ranges - GFR 07/10/2008 6:11 PM CDT 07/10/2008 6:19 PM CDT Franklin Khan Jr., MD CHEMISTRY ORDERABLES Edite d INTERFACE SYSTEM Refer to clinic/hospital department [facility] CLIA# [id number] [address] [place], [place] [address] * (ABNORMAL) CBC WITH DIFFERENTIAL (07/10/2008 6:11 PM CDT) RBC 4.74 3.90 - 4.90 M/uL [facility] MCHC 35.6(H) 31.5 - 35.5 % [facility] MCV 93.7 82.0 - 99.0 fL [facility] PLATELETS 319 140 - 350 K/uL [facility] HEMOGLOBIN 15.8(H) 11.8 - 14.8 g/dL [facility] RDW 13.1 11.5 - 14.5 % [facility] WBC 16.4(H) 4.0 - 9.8 K/uL [facility] MCH 33.3(H) 27.2 - 32.6 pg [facility] MPV 10.8 9.3 - 12.4 fL [facility] HEMATOCRIT 44.4(H) 35.5 - 44.0 % [facility] RDW-STDEV 45.3 37.1 - 48.7 fL [facility] MONOCYTES 5 3 - 13 % [facility] NEUTROPHILS 68 45 - 70 % [facility] NEUTROPHIL ABSOLUTE 11.11(H) 1.90 - 7.00 K/uL [facility] EOSINOPHIL ABSOLUTE 0.09 0.00 - 0.70 K/uL [facility] EOSINOPHILS 1 0 - 7 % [facility] LYMPHOCYTES 26 16 - 45 % [facility] LYMPHOCYTE ABSOLUTE 4.33 0.70 - 4.50 K/uL [facility] BASOPHILS ABSOLUTE 0.05 0.00 - 0.20 K/uL [facility] MONOCYTE ABSOLUTE 0.80 0.10 - 1.30 K/uL [facility] BASOPHILS 0 0 - 2 % [facility] 07/10/2008 6:11 PM CDT 07/10/2008 6:19 PM CDT Franklin Khan Jr., MD HEMATOLOGY ORDERABLES Edit ed INTERFACE SYSTEM Refer to clinic/hospital department [facility] CLIA# [id number] [address] [place] [address] documented in this encounter Visit Diagnoses Diagnosis Abdominal pain, other specified site Other acute pain Nausea alone Unspecified constipation documented in this encounter Additional Health Concerns Infection Onset Date Last Indicated Resolved Time R/O Respiratory 01/11/2023 01/11/2023 01/11/2023 7 :48 PM SUPERVISOR MIXING R/O Respiratory 02/19/2024 02/19/2024 02/19/2024 1 1:21 AM SUPERVISOR MIXING Influenza 02/19/2024 02/19/2024 02/26/2024 1:16 AM SUPERVISOR MIXING R/O Respiratory 03/13/2024 03/13/2024 03/13/2024 4 :20 PM SUPERVISOR MIXING Human Metapneumovirus 03/13/2024 03/13/20242024 1:16 AM SUPERVISOR MIXING R/O C. diff 03/13/2024 03/13/2024 03/14/2024 8:00 PM SUPERVISOR MIXING R/O C. diff 03/14/2024 03/14/2024 03/15/2024 6:17 PM SUPERVISOR MIXING documented as of this encounter Care Teams Crusher Supervisor Relationship Specialty Start Date End Date Juventino Howe MD [address] [place] [address] PCP - General Internal Medicine 11/04/11 documented as of this encounter
--- OUTSIDE RECORDS SUMMARY | 2024-12-07 18:05 | XMS_ITS | Encounter Summary ---
Author Organization [facility] Address [address] [place] [address] Care Team Providers Care Oracle Soa Developer Name Role Phone Juventino Howe MD Primary Care Provider [phone] Encounter Details Date Type Department Care Team [...] on file Legal Sex Female 3:38 AM PATHOLOGY SPECIALIST Gender Identity Not on file Sexual Orientation Not on file documented as of this encounter Plan of Treatment Upcoming Encounters Date Type Department Care Team (Late st Contact Info) Description 12/12/2024 4:[address] [facility] [place] [address] [facility] [address] [place] [address] Cata Terry, [place] [address] [place] [address] Maegan Duncan, Physical Therapist 12/19/2024 9:30 AM PATHOLOGY SPECIALIST [facility] S [facility] [address] [place] [address] Anselmo Durham MD 607 [facility] [address] [place] [address] 12/19/2024 10:40 AM PATHOLOGY SPECIALIST Office Visit [facility] EAR, NOSE AND THROAT [facility] CANCER CENTER [address] [facility] [address] [place] [address] Anselmo Durham MD [address] [facility] [address] [place] [address] 12/20/2024 2:00 PM PATHOLOGY SPECIALIST Office Visit [facility] Internal Medicine Medical [place] [address] [facility] [address] [address] Juventino Howe MD [address] [facility] [address] [place] [address] 12/28/2024 2:45 PM PATHOLOGY SPECIALIST Office Visit [facility] Endocrinology [address] [facility] [address] [place] [address] Sheldon Canales MD [address] [facility] [address] [place] [address] 01/04/2025 2:00 PM PATHOLOGY SPECIALIST Office Visit [facility] Neurology [address] [facility] [address] [place] [address] Juventino Howe MD [address] [facility] [address] [place] [address] Bobbi Davalos MD [address] [facility] [address] [place] [address] 02/26/2025 3:10 PM PATHOLOGY SPECIALIST Office Visit [facility] Gastroenterology [address] [address] [facility] [address] [place] [address] Suzette Cody MD [address] [facility] [address] [place] [address] 03/28/2025 2:30 PM PATHOLOGY SPECIALIST Office Visit [facility] Colon and Rectal Surgery [address] [place] [address] [place] [address] [place] [address] 10/30/2025 3:00 PM CDT Office Visit [facility] Pulmonology [facility] [address] [facility] [place] [address] Everett Cam MD [address] [facility] [address] [place] [address] documented as of this encounter Visit Diagnoses Diagnosis Symptomatic menopausal or female climacteric states documented in this encounter Additional Health Concerns Infection Onset Date Last Indicated Resolved Time R/O Respiratory 01/11/2023 01/11/2023 01/11/2023 7 :48 PM PATHOLOGY SPECIALIST R/O Respiratory 02/19/2024 02/19/2024 02/19/2024 1 1:21 AM PATHOLOGY SPECIALIST Influenza 02/19/2024 02/19/2024 02/26/2024 1:16 AM PATHOLOGY SPECIALIST R/O Respiratory 03/13/2024 03/13/2024 03/13/2024 4 :20 PM PATHOLOGY SPECIALIST Human Metapneumovirus 03/13/2024 03/13/20242024 1:16 AM PATHOLOGY SPECIALIST R/O C. diff 03/13/2024 03/13/2024 03/14/2024 8:00 PM PATHOLOGY SPECIALIST R/O C. diff 03/14/2024 03/14/2024 03/15/2024 6:17 PM PATHOLOGY SPECIALIST documented as of this encounter Care Teams Oracle Soa Developer Relationship Specialty Start Date End Date Juventino Howe MD [address] [facility] [address] [place] [address] PCP - General Internal Medicine 11/04/11 documented as of this encounter
--- OUTSIDE RECORDS SUMMARY | 2024-12-07 18:05 | XMS_ITS | Encounter Summary ---
Author Organization [facility] Address [address] [place] [address] Care Team Providers Care Tallow Pumper Name Role Phone Juventino Howe MD Primary Care Provider [phone] Encounter Details Date Type Department Care Team (Late st Contact Info) Description 10/09/2008 Outpatient Historical [facility] Krista Altamirano MD [address] [facility] [address] [place] [address] Dysphagia, Unspecified Social History Tobacco Use Types Packs/Day Years Used Date Smoking Tobacco: Never Alcohol Use Standard Drinks/Week Comments No 0 (1 standard drink = 0.6 oz pur e alcohol) Comments No Sex and Gender Information Value Date Recorded Sex Assigned at Not on file Legal Sex Female 3:38 AM ORNAMENTER HAND Gender Identity Not on file Sexual Orientation Not on file documented as of this encounter Plan of Treatment Upcoming Encounters Date Type Department Care Team (Late Contact Info) Description 12/12/2024 4:30 PM CDT [facility]ment [facility] [place] [address] [facility] 145 [place] [address] Cata Terry, [place]AR[place] [address] [place] [address] Maegan Duncan, Physical Therapist 12/19/2024 9:30 AM ORNAMENTER HAND [facility]ment [facility] Rad[facility] S [facility] [address] [place] [address] Anselmo Durham MD [address] [facility] [address] [place] [address] 12/19/2024 10:40 AM ORNAMENTER HAND Office Visit [facility] EAR, NOSE AND THROAT [facility] [address] [facility] [address] [place] [address] Anselmo Durham MD [address] [facility] [address] [place] [address] 12/20/2024 2:00 PM ORNAMENTER HAND Office Visit [facility] Internal Medicine Medical [place] A [address] [facility] [address] [address] Juventino Howe MD [address] [facility] [address] [place] [address] 12/28/2024 2:45 PM ORNAMENTER HAND Office Visit [facility] Endocrinology [address] [facility] [address] [place] [address] Sheldon Canales MD [address] [facility] [address] [place] [address] 01/04/2025 2:00 PM ORNAMENTER HAND Office Visit [facility] Neurology [address] [facility] [address] [place] [address] Juventino Howe MD [address] [facility] [address] [place] [address] Bobbi Davalos MD [address] [facility] [address] [place] [address] 02/26/2025 3:10 PM ORNAMENTER HAND Office Visit [facility] Gastroenterology [place] [address] [facility] [address] [place] [address] Suzette Cody MD [address] [facility] [address] [place] [address] 03/28/2025 2:30 PM ORNAMENTER HAND Office Visit [facility] Colon and Rectal Surgery [address] [facility] [address] [place] [address] [place] [address] [place] [address] 10/30/2025 3:00 PM CDT Office Visit [facility] Pulmonology [facility] [address] [place] [address] Everett Cam MD [address] [facility] [address] [place] [address] documented as of this encounter Procedures Procedure Name Priority Date/Time Associated Diagnosis Comments PATHOLOGY Routine 10/09/2008 10:23 AM CDT documented in this encounter Results * PATHOLOGY (10/09/2008 10:23 AM CDT) FINAL REPORT [facility] [address] [place], [place] [address] Patient: DUYEN OROSCO : 1960 Procedure Date: 10/09/2008 Accession Date: 10/09/2008 Case No: [id number] Ordering Dr: KRISTA ALTAMIRANO Case type SW is performed by [facility], [place], [place]; all other case types are performed by [facility], [place], [place] SURGICAL PATHOLOGY & NON-GYNECOLOGIC CYTOPATHOLOGY REPORT DIAGNOSIS STOMACH, BIOPSY: - NO PATHOLOGIC DIAGNOSIS. Specimen Description: Gastric biopsy. Operative Procedure: EGD. Patient Information/Histo ry/Diagnosis: Gastritis. Gross: The specimen is received in a container labeled Duyen Steinacher, gastric biopsy. It consists of a single piece of hernandez tissue measuring 0.3 x 0.2 x 0.2 cm. The specimen is submitted entirely labeled A1. KLA/KAMILA 10.09.2008 06:07 pm Microscopic: The slides are labeled [id number] and Kwesi. The sections of the gastric biopsy show fundic-type gastric mucosa. The tissue is unremarkable. A significant inflammatory infiltrate is not seen, and organisms typical for Helicobacter pylori are not identified on H&E- stained sections. There is no evidence of malignancy. OJL/PHC 10.10.2008 01:18 pm Staging Form: No. ELECTRONIC SIGNATURE FOR RIVERA WEBSTER M.D.- 10/10/08 10:21 pm [facility] 10/09/2008 10:2 3 AM CDT us Krista Altamirano MD PATHOLOGY/CYTOLOGY ORDERAB LES Final Result [facility] CLIA# [id number] [address] [facility] [address] documented in this encounter Visit Diagnoses Diagnosis Dysphagia, unspecified(787.20) Dysphagia, unspecified documented in this encounter Additional Health Concerns Infection Onset Date Last Indicated Resolved Time R/O Respiratory 01/11/2023 01/11/2023 01/11/2023 7 :48 PM ORNAMENTER HAND R/O Respiratory 02/19/2024 02/19/2024 02/19/2024 1 1:21 AM ORNAMENTER HAND Influenza 02/19/2024 02/19/2024 02/26/2024 1:16 AM ORNAMENTER HAND R/O Respiratory 03/13/2024 03/13/2024 03/13/2024 4 :20 PM ORNAMENTER HAND Human Metapneumovirus 03/13/2024 03/13/20242024 1:16 AM ORNAMENTER HAND R/O C. diff 03/13/2024 03/13/2024 03/14/2024 8:00 PM ORNAMENTER HAND R/O C. diff 03/14/2024 03/14/2024 03/15/2024 6:17 PM ORNAMENTER HAND documented as of this encounter Care Teams Tallow Pumper Relationship Specialty Start Date End Date Bhutto, Juventino, MD [address] [facility] [address] [place] [address] PCP - General Internal Medicine 11/04/11 documented as of this encounter
--- OUTSIDE RECORDS SUMMARY | 2024-12-07 18:05 | XMS_ITS | Encounter Summary ---
Author Organization [facility] Address [address] [place] [address] Care Team Providers Care Filer Finish Name Role Phone Juventino Howe MD Primary Care Provider [phone] Encounter Details Date Type Department Care Team (Latest Contact Info) Description 09/12/2008 Outpatient Historical [facility] TRESA Lee, Sulema Sherman MD NO ADDRESS ON FILE Lump or Mass in Breast Social History Tobacco Use Types Packs/Day Years Used Date Smoking Tobacco: Never Alcohol Use Standard Drinks/Week Comments No 0 (1 standard drink = 0.6 oz pur e alcohol) Comments No Sex and Gender Information Value Date Recorded Sex Assigned at Not on file Legal Sex Female 3:38 AM STUDENT DEVELOPMENT SPECIALIST Gender Identity Not on file Sexual Orientation Not on file documented as of this encounter Plan of Treatment Upcoming Encounters Date Type Department Care Team (Late st Contact Info) Description 12/12/2024 4:30 PM CDT [facility]ointment [facility] [place] [address] [facility] 145 [place] [address] Cata Terry, [place] [address] [place] [address] Maegan Duncan, Physical Therapist 12/19/2024 9:30 AM STUDENT DEVELOPMENT SPECIALIST Appointment [facility] Rad[facility] S [facility] [address] [place] [address] Anselmo Durham MD [address] [facility] [address] [place] [address] 12/19/2024 10:40 AM STUDENT DEVELOPMENT SPECIALIST Office Visit [facility] EAR, NOSE AND THROAT [facility] [address] [facility] [address] [place] [address] Anselmo Durham MD [address] [facility] [address] [place] [address] 12/20/2024 2:00 PM STUDENT DEVELOPMENT SPECIALIST Office Visit [facility] Internal Medicine Medical [place] [address] [facility] [address] [address] Juventino Howe MD [address] [facility] [address] [place] [address] 12/28/2024 2:45 PM STUDENT DEVELOPMENT SPECIALIST Office Visit [facility] Endocrinology [address] [facility] [address] [place] [address] Sheldon Canales MD [address] [facility] [address] [place] [address] 01/04/2025 2:00 PM STUDENT DEVELOPMENT SPECIALIST Office Visit [facility] Neurology [address] [facility] [address] [place] [address] Juventino Howe MD [address] [facility] [address] [place] [address] Bobbi Davalos MD [address] [facility] [address] [place] [address] 02/26/2025 3:10 PM STUDENT DEVELOPMENT SPECIALIST Office Visit [facility] Gastroenterology [place] [address] [facility] [address] [place] [address] Suzette Cody MD [address] [facility] [address] [place] [address] 03/28/2025 2:30 PM STUDENT DEVELOPMENT SPECIALIST Office Visit [facility] Colon and Rectal Surgery [address] [place] [address] [place] [address] [place] [address] 10/30/2025 3:00 PM CDT Office Visit [facility] Pulmonology [facility] [address] [facility] [facility] [address] [place] [address] Everett Cam MD [address] [facility] [address] [place] [address] documented as of this encounter Procedures Procedure Name Priority Date/Time Associated Diagnosis Comments US BREAST UNI LEFT COMPLETE Routine 09/12/2008 10:04 AM CDT documented in this encounter Results * US BREAST UNILATERAL LEFT (09/12/2008 10:04 AM CDT) Anatomical Region Laterality Modality Breast Left Other 09/12/2008 10:0 4 AM CDT Narrative 09/13/2008 8:31 AM CDT [facility] [address] [place], [place] [address] Admit Date: 09/12/2008 DUYEN OROSCO Sex: F Admit Prov: SULEMA LEE Date: 1960 Primary Care Prov: CMRN: [id number] Room: JANE SSN: [id number] IMAGING SERVICES Ordering Prov: SULEMA LEE Accession Number: [id number] Interpretation LEFT BREAST ULTRASOUND 09/12/2008 HISTORY: The [...] SANTAMARIA 09/13/2008 08:31 Transcribed: 09/12/2008 15:03 KIMBERLYJ Procedure Note Chelsie Santamaria - 09/13/2008 [facility] [address] [facility] [place] [address] Admit Date: 09/12/2008 DUYEN OROSCO E Sex: F Admit Prov: SULEMA LEE Date: 1960 Primary Care Prov: CMRN: [id number] Room: [facility] SSN: [id number] IMAGING SERVICES Ordering Prov: SULEMA LEE Interpretation LEFT BREAST ULTRASOUND 09/12/2008 HISTORY: The [...] CHELSIE SANTAMARIA 09/13/2008 08:31 Transcribed: 09/12/2008 15:03 CHONG Sulema Lee MD ORDERABLES Final Result documented in this encounter Visit Diagnoses Diagnosis Lump or mass in breast documented in this encounter Additional Health Concerns Infection Onset Date Last Indicated Resolved Time R/O Respiratory 01/11/2023 01/11/2023 01/11/2023 7 :48 PM STUDENT DEVELOPMENT SPECIALIST R/O Respiratory 02/19/2024 02/19/202402/19/2024 1 1:21 AM STUDENT DEVELOPMENT SPECIALIST Influenza 02/19/2024 02/19/2024 02/26/2024 1:16 AM STUDENT DEVELOPMENT SPECIALIST R/O Respiratory 03/13/2024 03/13/2024 03/13/2024 4 :20 PM STUDENT DEVELOPMENT SPECIALIST Human Metapneumovirus 03/13/2024 03/13/20242024 1:16 AM STUDENT DEVELOPMENT SPECIALIST R/O C. diff 03/13/2024 03/13/2024 03/14/2024 8:00 PM STUDENT DEVELOPMENT SPECIALIST R/O C. diff 03/14/2024 03/14/2024 03/15/2024 6:17 PM STUDENT DEVELOPMENT SPECIALIST documented as of this encounter Care Teams Filer Finish Relationship Specialty Start Date End Date Juventino Howe MD [address] [facility] [address] [place] [address] PCP - General Internal Medicine 11/04/11 documented as of this encounter
--- OUTSIDE RECORDS SUMMARY | 2024-12-07 18:05 | XMS_ITS | Encounter Summary ---
Author Organization [facility] Address [address] [place] [address] Care Team Providers Care Mri Assistant Name Role Phone Juventino Howe MD Primary Care Provider [phone] Encounter Details Date Type Department Care Team (Latest Contact Info) Description 12/01/2024 Results Follow-Up [facility] Internal Medicine [place] A [facility] [address] [address] Juventino Howe MD [address] [place] [address] VITAMIN B12 AND FOLATE, COMPREHENSIVE METABOLIC PANEL, CBC WITH DIFFERENTIAL, Additional followed-up results: 8 Social History Tobacco Use Types Packs/Day Years [...] on file Legal Sex Female 3:38 AM FILTER TIP CATCHER Gender Identity Not on file Sexual Orientation Not on file 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 [address] Maegan Duncan, Physical Therapist 12/19/2024 9:30 AM FILTER TIP CATCHER Appointment [facility] Radiology [address] [place] [address] [place] [address] Anselmo Durham MD [address] [facility] [address] [place] [address] 12/19/2024 10:40 AM FILTER TIP CATCHER Office Visit [facility] EAR, NOSE AND THROAT [facility]ER CENTER [address] [facility] [address] [place] [address] Anselmo Durham MD [address] [facility] [address] [place] [address] 12/20/2024 2:00 PM FILTER TIP CATCHER Office Visit [facility] Internal Medicine Medical [place] A [address] [facility] [address] [address] Juventino Howe MD [address] [place] [address] 12/28/2024 2:45 PM FILTER TIP CATCHER Office Visit [facility] Endocrinology [address] [facility] [address] [place] [address] Sheldon Canales MD [address] [facility] [address] [place] [address] 01/04/2025 2:00 PM FILTER TIP CATCHER Office Visit [facility] Neurology [address] [facility] [address] [place] [address] Juventino Howe MD [address] [facility] [address] [place] [address] Bobbi Davalos MD [address] [facility] [address] [place] [address] 02/26/2025 3:10 PM FILTER TIP CATCHER Office Visit [facility] Gastroenterology [place] [address] [facility] [address] [place] [address] Suzette Cody MD [address] [facility] [address] [place] [address] 03/28/2025 2:30 PM FILTER TIP CATCHER Office Visit [facility] Colon and Rectal Surgery [address] [facility] [address] [place] [address] [place] [address] [facility] [address] [place] [address] 10/30/2025 3:00 PM CDT Office Visit [facility] Pulmonology [facility] [address] [facility] [address] [place] [address] Everett Cam MD [address] [facility] [address] [place] [address] documented as of this encounter Visit Diagnoses Not on filedocumented in this encounter Care Teams Mri Assistant Relationship Specialty Start Date End Date Juventino Howe MD [address] [facility] [address] [place] [address] PCP - General Internal Medicine 11/04/11 documented as of this encounter
--- OUTSIDE RECORDS SUMMARY | 2024-12-07 18:05 | XMS_ITS | Encounter Summary ---
Author Organization [facility] Address [address] [place] [address] Care Team Providers Care Precipitator Supervisor Name Role Phone Juventino Howe MD Primary Care Provider [phone] Encounter Details Date Type Department Care Team (Late st Contact Info) Description 03/18/[address] [facility] Support Serv. (Adt Cardiology-[place]) [address] [place] [address] Robin Vizacino MD Social History Tobacco Use Types Packs/Day Years Used Date Smoking Tobacco: Never Assessed Comments Unknown Sex and Gender Information Value Date Recorded Sex Assigned at Not on file Legal Sex Female 3:38 AM MINE SAFETY DIRECTOR Gender Identity Not on file Sexual Orientation Not on file documented as of this encounter Plan of Treatment Upcoming Encounters Date Type Department Care Team (Late st Contact Info) Description 12/12/2024 4:30 PM CDT Appointment [facility] Therapy Services [place] [address] [facility] [address] [place] [address] Cata Terry, [place] [address] [place] [address] Maegan Duncan, Physical Therapist 12/19/2024 9:30 AM MINE SAFETY DIRECTOR Appointment [facility] Radiology S [facility] [address] [place] [address] Anselmo Durham MD [address] [facility] [address] [place] [address] 12/19/2024 10:40 AM MINE SAFETY DIRECTOR Office Visit [facility] EAR, NOSE AND THROAT [facility] [address] [facility] [address] [place] [address] Anselmo Durham MD [address] [facility] [address] [place] [address] 12/20/2024 2:00 PM MINE SAFETY DIRECTOR Office Visit [facility] Internal Medicine Medical [place] A [address] [address] Juventino Howe MD [address] [facility] [address] [place] [address] 12/28/2024 2:45 PM MINE SAFETY DIRECTOR Office Visit [facility] Endocrinology [address] [facility] [address] [place] [address] Sheldon Canales MD [address] [facility] [address] [place] [address] 01/04/2025 2:00 PM MINE SAFETY DIRECTOR Office Visit [facility] Neurology [address] [facility] [address] [place] [address] Juventino Howe MD [address] [facility] [address] [place] [address] Bobbi Davalos MD [address] [place] [address] 02/26/2025 3:10 PM MINE SAFETY DIRECTOR Office Visit [facility] Gastroenterology [place] [address] [place] [address] Suzette Cody MD [address] [place] [address] 03/28/2025 2:30 PM MINE SAFETY DIRECTOR Office Visit [facility] Colon and Rectal Surgery [address] [place] [address] [place] [address] [place] [address] 10/30/2025 3:00 PM CDT Office Visit [facility] Pulmonology [facility] [address] [place] [address] Everett Cam MD [address] [place] [address] documented as of this encounter Visit Diagnoses Not on filedocumented in this encounter Additional Health Concerns Infection Onset Date Last Indicated Resolved Time R/O Respiratory 01/11/2023 01/11/2023 01/11/2023 7 :48 PM MINE SAFETY DIRECTOR R/O Respiratory 02/19/2024 02/19/2024 02/19/2024 1 1:21 AM MINE SAFETY DIRECTOR Influenza 02/19/2024 02/19/2024 02/26/2024 1:16 AM MINE SAFETY DIRECTOR R/O Respiratory 03/13/2024 03/13/2024 03/13/2024 4 :20 PM MINE SAFETY DIRECTOR Human Metapneumovirus 03/13/2024 03/13/20242024 1:16 AM MINE SAFETY DIRECTOR R/O C. diff 03/13/2024 03/13/2024 03/14/2024 8:00 PM MINE SAFETY DIRECTOR R/O C. diff 03/14/2024 03/14/2024 03/15/2024 6:17 PM MINE SAFETY DIRECTOR documented as of this encounter Care Teams Precipitator Supervisor Relationship Specialty Start Date End Date Juventino Howe MD [address] [place] [address] PCP - General Internal Medicine 11/04/11 documented as of this encounter
--- OUTSIDE RECORDS SUMMARY | 2024-12-07 18:05 | XMS_ITS | Encounter Summary ---
Author Organization [facility] Address [address] [place] [address] Care Team Providers Care Repatcher Name Role Phone Juventino Howe MD Primary Care Provider [phone] Encounter Details Date Type Department Care Team (Late st Contact Info) Description 10/03/2007 Outpatient Historical [facility] Lynne Escobar MD [address] [place] [address] Flatulence, Eructation, and Gas Pain Social History Tobacco Use Types Packs/Day Years Used Date Smoking Tobacco: Never Assessed Comments Unknown Sex and Gender Information Value Date Recorded Sex Assigned at Not on file Legal Sex Female 3:38 AM LABORATORY CUREMAN Gender Identity Not on file Sexual Orientation Not on file documented as of this encounter Plan of Treatment Upcoming Encounters Date Type Department Care Team (Late Contact Info) Description 12/12/2024 4:30 PM CDT [facility]ment [facility] [place] 7[address] [facility] 145 [place] [address] Cata Terry, [place] [address] [place] [place] [address] Maegan Duncan, Physical Therapist 12/19/2024 9:30 AM LABORATORY CUREMAN [facility]ment [facility] Rad[facility] [address] [place] [address] Anselmo Durham MD 607 [facility] [address] [place] [address] 12/19/2024 10:40 AM LABORATORY CUREMAN Office Visit [facility] EAR, NOSE AND THROAT [facility] [address] [place] [address] Anselmo Durham MD [address] [facility] [address] [place] [address] 12/20/2024 2:00 PM LABORATORY CUREMAN Office Visit [facility] Internal Medicine Medical [place] [address] [address] Juventino Howe MD [address] [place] [address] 12/28/2024 2:45 PM LABORATORY CUREMAN Office Visit [facility] Endocrinology [address] [place] [address] Sheldon Canales MD [address] [facility] [address] [place] [address] 01/04/2025 2:00 PM LABORATORY CUREMAN Office Visit [facility] Neurology [address] [place] [address] Juventino Howe MD [address] [place] [address] Bobbi Davalos MD [address] [place] [address] 02/26/2025 3:10 PM LABORATORY CUREMAN Office Visit [facility] Gastroenterology [address] [place] [address] Suzette Cody MD [address] [place] [address] 03/28/2025 2:30 PM LABORATORY CUREMAN Office Visit [facility] Colon and Rectal Surgery [address] [place] [address] [place] [address] [place] [address] 10/30/2025 3:00 PM CDT Office Visit [facility] Pulmonology [facility] [address] [facility] [address] [place] [address] Everett Cam MD [address] [facility] [address] [place] [address] documented as of this encounter Procedures Procedure Name Priority Date/Time Associated Diagnosis Comments US ABDOMEN LIMITED Timed Study 10/03/2007 9: 14 AM CDT documented in this encounter Results * US ABDOMEN LIMITED (10/03/2007 9:14 AM CDT) Anatomical Region Laterality Modality Abdomen Other 10/03/2007 9:14 AM CDT Narrative 10/03/2007 10:00 AM CDT [facility] [address] [place], [place] [address] Admit Date: 10/03/2007 DUYEN OROSCO Sex: F Admit Prov: LYNNE ESCOBAR Date: 1960 Primary Care Prov: CMRN: [id number] Room: [facility] SSN: [id number] IMAGING SERVICES Ordering Prov: N/A Accession Number: [id number] Interpretation Examination: Ultrasound Abdomen Limited (Gallbladder and [...] Procedure Note Donny Perera MD - 10/03/2007 [facility] [address] [facility] [place], [place] [address] Admit Date: 10/03/2007 GURJITDUYEN Sex: F Admit Prov: LYNNE ESCOBAR Date: 1960 Primary Care Prov: CMRN: [id number] Room: [facility] SSN: [id number] IMAGING SERVICES Ordering Prov: N/A Interpretation Examination: [...] Electronically signed by: Angela PERERA 10/03/2007 10:00 Lynne Escobar MD ORDERABLES Final Result documented in this encounter Visit Diagnoses Diagnosis Flatulence, eructation, and gas pain documented in this encounter Additional Health Concerns Infection Onset Date Last Indicated Resolved Time R/O Respiratory 01/11/2023 01/11/2023 01/11/2023 7 :48 PM LABORATORY CUREMAN R/O Respiratory 02/19/2024 02/19/2024 02/19/2024 1 1:21 AM LABORATORY CUREMAN Influenza 02/19/2024 02/19/2024 02/26/2024 1:16 AM LABORATORY CUREMAN R/O Respiratory 03/13/2024 03/13/2024 03/13/2024 4 :20 PM LABORATORY CUREMAN Human Metapneumovirus 03/13/2024 03/13/20242024 1:16 AM LABORATORY CUREMAN R/O C. diff 03/13/2024 03/13/2024 03/14/2024 8:00 PM LABORATORY CUREMAN R/O C. diff 03/14/2024 03/14/2024 03/15/2024 6:17 PM LABORATORY CUREMAN documented as of this encounter Care Teams Repatcher Relationship Specialty Start Date End Date Jvuentino Howe MD [address] [facility] [address] [place] [address] PCP - General Internal Medicine 11/04/11 documented as of this encounter
--- OUTSIDE RECORDS SUMMARY | 2024-12-07 18:05 | XMS_ITS | Encounter Summary ---
Author Organization [facility] Address [address] [place] [address] Care Team Providers Care Medical Anthropology Director Name Role Phone Juventino Howe MD Primary Care Provider [phone] Encounter Details Date Type Department Care Team (Latest Contact Info) Description 10/05/2007 Outpatient Historical [facility] TRESA Lee, Sulema Sherman MD NO ADDRESS ON FILE Abnormal Mammogram, Unspecified; Solitary Cyst of Breast Social History Tobacco Use Types Packs/Day Years Used Date Smoking Tobacco: Never Assessed Comments Unknown Sex and Gender Information Value Date Recorded Sex Assigned at Not on file Legal Sex Female 3:38 AM JUNIOR PROGRAMMER ANALYST Gender Identity Not on file Sexual Orientation Not on file documented as of this encounter Plan of Treatment Upcoming Encounters Date Type Department Care Team (Late st Contact Info) Description 12/12/2024 4:30 PM CDT Appointment [facility] Therapy Services [place] [address] [facility] 145 [place] [address] Cata Terry, [place] [address] [place] [address] Maegan Duncan, Physical Therapist 12/19/2024 9:30 AM JUNIOR PROGRAMMER ANALYST Appointment [facility] Radiology S [facility] [address] [place] [address] Anselmo Durham MD 607 [facility] [address] [place] [address] 12/19/2024 10:40 AM JUNIOR PROGRAMMER ANALYST Office Visit [facility] EAR, NOSE AND THROAT [facility] [address] [facility] [address] [place] [address] Anselmo Durham MD [address] [facility] [address] [place] [address] 12/20/2024 2:00 PM JUNIOR PROGRAMMER ANALYST Office Visit [facility] Internal Medicine Medical [place] [address] [facility] [address] [address] Juventino Howe MD [address] [facility] [address] [place] [address] 12/28/2024 2:45 PM JUNIOR PROGRAMMER ANALYST Office Visit [facility] Endocrinology [address] [facility] [address] [place] [address] Sheldon Canales MD [address] [facility] [address] [place] [address] 01/04/2025 2:00 PM JUNIOR PROGRAMMER ANALYST Office Visit [facility] Neurology [address] [facility] [address] [place] [address] Juventino Howe MD [address] [facility] [address] [place] [address] Bobbi Davalos MD [address] [place] [address] 02/26/2025 3:10 PM JUNIOR PROGRAMMER ANALYST Office Visit [facility] Gastroenterology [address] [place] [address] Suzette Cody MD [address] [place] [address] 03/28/2025 2:30 PM JUNIOR PROGRAMMER ANALYST Office Visit [facility] Colon and Rectal Surgery [address] [place] [address] [place] [address] [place] [address] 10/30/2025 3:00 PM CDT Office Visit [facility] Pulmonology [facility] [address] [facility] [address] [place] [address] Everett Cam MD [address] [facility] [address] [place] [address] documented as of this encounter Procedures Procedure Name Priority Date/Time Associated Diagnosis Comments US BREAST UNI LEFT COMPLETE Timed Study 10/05/2007 11:46 AM CDT documented in this encounter Results * US BREAST UNILATERAL LEFT (10/05/2007 11:46 AM CDT) Anatomical Region Laterality Modality Breast Left Other 10/05/2007 11:4 6 AM CDT Narrative 10/06/2007 7:22 AM CDT [facility] [address] [place], [place] [address] Admit Date: 10/05/2007 DUYEN OROSCO Sex: F Admit Prov: SULEMA LEE Date: 1960 Primary Care Prov: CMRN: [id number] Room: [facility] SSN: [id number] IMAGING SERVICES Ordering Prov: SULEMA LEE Accession Number: [id number] Interpretation LEFT BREAST ULTRASOUND, 10/05/2007 History: The patient has a palpable abnormality in the left breast. This has been previously aspirated and demonstrated to be a cyst. The patient presents today for a left breast ultrasound. Technique: A left breast ultrasound was performed. Correlation is made with the patient's mammograms and ultrasound from [facility] dated March 2007 and February 2007. [...] DKT Procedure Note Chelsie Santamaria - 10/06/2007 [facility] [address] [place], [place] [address] Admit Date: 10/05/2007 DUYEN OROSCO Sex: F Admit Prov: SULEMA LEE Date: 1960 Primary Care Prov: CMRN: [id number] Room: [facility] SSN: [id number] IMAGING SERVICES Ordering Prov: SULEMA LEE Interpretation LEFT BREAST ULTRASOUND, 10/05/2007 History: The patient has a palpable abnormality in the left breast.This has been previously aspirated and demonstrated to be a cyst. Thepatient presents today for a left breast ultrasound. Technique: A left breast ultrasound was performed. Correlation ismade with the patient's mammograms and ultrasound from [facility] dated March 2007 and February 2007. Findings: [...] SANTAMARIA 10/06/2007 07:22 Transcribed: 10/05/2007 14:39 DKT us Sulema Lee MD ORDERABLES Final Result documented in this encounter Visit Diagnoses Diagnosis Abnormal mammogram, unspecified Solitary cyst of breast documented in this encounter Additional Health Concerns Infection Onset Date Last Indicated Resolved Time R/O Respiratory 01/11/2023 01/11/2023 01/11/2023 7 :48 PM JUNIOR PROGRAMMER ANALYST R/O Respiratory 02/19/2024 02/19/2024 02/19/2024 1 1:21 AM JUNIOR PROGRAMMER ANALYST Influenza 02/19/2024 02/19/2024 02/26/2024 1:16 AM JUNIOR PROGRAMMER ANALYST R/O Respiratory 03/13/2024 03/13/2024 03/13/2024 4 :20 PM JUNIOR PROGRAMMER ANALYST Human Metapneumovirus 03/13/2024 03/13/20242024 1:16 AM JUNIOR PROGRAMMER ANALYST R/O C. diff 03/13/2024 03/13/2024 03/14/2024 8:00 PM JUNIOR PROGRAMMER ANALYST R/O C. diff 03/14/2024 03/14/2024 03/15/2024 6:17 PM JUNIOR PROGRAMMER ANALYST documented as of this encounter Care Teams Medical Anthropology Director Relationship Specialty Start Date End Date Juventino Howe MD [address] [facility] [address] [place] [address] PCP - General Internal Medicine 11/04/11 documented as of this encounter
--- OUTSIDE RECORDS SUMMARY | 2024-12-07 18:05 | XMS_ITS | Encounter Summary ---
Author Organization [facility] Address [address] [place] [address] Care Team Providers Care Sugar Mill Worker Name Role Phone Juventino Howe MD Primary Care Provider [phone] Encounter Details Date Type Department Care Team (Late st Contact Info) Description 08/24/2008 Outpatient Historical [facility], [address] Emili Duron MD [address] [facility] [address] [place] [address] Social History Tobacco Use Types Packs/Day Years Used Date Smoking Tobacco: Never Alcohol Use Standard Drinks/Week Comments No 0 (1 standard drink = 0.6 oz pur e alcohol) Comments No Sex and Gender Information Value Date Recorded Sex Assigned at Not on file Legal Sex Female 3:38 AM FINANCIAL REPORTING SPECIALIST Gender Identity Not on file Sexual Orientation Not on file documented as of this encounter Plan of Treatment Upcoming Encounters Date Type Department Care Team (Late Contact Info) Description 12/12/2024 4:30 PM CDT Appointment [facility] [place] 7[address] [facility] 145 [place] [address] Cata Terry, [place] [address] [place] [address] Maegan Duncan, Physical Therapist 12/19/2024 9:30 AM FINANCIAL REPORTING SPECIALIST Appointment [facility] Rad[facility] S Replaced By [facility] [address] [place] [address] Anselmo Durham MD 607 [facility] [address] [place] [address] 12/19/2024 10:40 AM FINANCIAL REPORTING SPECIALIST Office Visit [facility] EAR, NOSE AND THROAT [facility] [address] [facility] [address] [place] [address] Anselmo Durham MD 607 [facility] [address] [place] [address] 12/20/2024 2:00 PM FINANCIAL REPORTING SPECIALIST Office Visit [facility] Internal Medicine Medical [place] [address] [facility] [address] [address] Juventino Howe MD [address] [facility] [address] [place] [address] 12/28/2024 2:45 PM FINANCIAL REPORTING SPECIALIST Office Visit [facility] Endocrinology [address] [facility] [address] [place] [address] Emili Duron MD [address] [facility] [address] [place] [address] 01/04/2025 2:00 PM FINANCIAL REPORTING SPECIALIST Office Visit [facility] Neurology [facility] [address] [facility] [address] [place] [address] Juventino Howe MD [address] [facility] [address] [place] [address] Bobbi Davalos MD [address] [facility] [address] [place] [address] 02/26/2025 3:10 PM FINANCIAL REPORTING SPECIALIST Office Visit [facility] Gastroenterology [address] [facility] [address] [place] [address] Suzette Cody MD [address] [facility] [address] [place] [address] 03/28/2025 2:30 PM FINANCIAL REPORTING SPECIALIST Office Visit [facility] Colon and Rectal Surgery [address] [facility] [address] [place] [address] [place] [address] [place] [address] 10/30/2025 3:00 PM CDT Office Visit [facility] Pulmonology [facility] [address] [facility] [address] [place] [address] Everett Cam MD [address] [facility] [address] [place] [address] documented as of this encounter Procedures Procedure Name Priority Date/Time Associated Diagnosis Comments CYTOLOGY, NON GYNE Routine 08/24/2008 2: 11 PM CDT CYTOLOGY, NON GYNE Routine 08/24/2008 2: 10 PM CDT documented in this encounter Results * CYTOLOGY, NON GYNE (08/24/2008 2:11 PM CDT) PATHOLOGY/CYT OLOGY REPORT [facility] [place] [address] [place], [place] [address] Patient: DUYEN OROSCO : 1960 Procedure Date: 08/24/2008 Accession Date: 08/27/2008 Case No: [id number] Ordering Dr: EMILI DURON Case types AW, BW, FW, NW and SH are performed by [facility] [place], [place] SURGICAL PATHOLOGY & NON-GYNECOLOGIC CYTOPATHOLOGY REPORT [...] INTERFACE SYSTEM 08/24/2008 2:11 PM CDT us Emili Duron MD PATHOLOGY/CYTOLOGY ORDERABL ES Final Result INTERFACE SYSTEM Refer to clinic/hospital department * CYTOLOGY, NON GYNE (08/24/2008 2:10 PM CDT) PATHOLOGY/CYT OLOGY REPORT [address] [address] Patient: DUYEN OROSCO : 1960 Procedure Date: 08/24/2008 Accession Date: 08/27/2008 Case No: [id number] Ordering Dr: EMILI DURON Case types AW, BW, FW, NW and SH are performed by [facility] [place], [place] SURGICAL PATHOLOGY & NON-GYNECOLOGIC CYTOPATHOLOGY REPORT [...] monolayer smear and cell block are prepared. [facility] 08.28.2008 10:33 am Microscopic: The aspirate contains benign thyroid follicular epithelial cells principally in monolayer sheets. The features are consistent with adenomatoid nodule in the setting of nodular hyperplasia. [facility] 08.28.2008 10:33 am Staging Form: No ELECTRONIC SIGNATURE FOR RED LESLIE M.D.- 08/28/08 10:56 am INTERFACE SYSTEM 08/24/2008 2:10 PM CDT us Emili Duron MD PATHOLOGY/CYTOLOGY ORDERABL ES Final Result INTERFACE SYSTEM Refer to clinic/hospital department documented in this encounter Visit Diagnoses Not on filedocumented in this encounter Additional Health Concerns Infection Onset Date Last Indicated Resolved Time R/O Respiratory 01/11/2023 01/11/2023 01/11/2023 7 :48 PM FINANCIAL REPORTING SPECIALIST R/O Respiratory 02/19/2024 02/19/2024 02/19/2024 1 1:21 AM FINANCIAL REPORTING SPECIALIST Influenza 02/19/2024 02/19/2024 02/26/2024 1:16 AM FINANCIAL REPORTING SPECIALIST R/O Respiratory 03/13/2024 03/13/2024 03/13/2024 4 :20 PM FINANCIAL REPORTING SPECIALIST Human Metapneumovirus 03/13/2024 03/13/20242024 1:16 AM FINANCIAL REPORTING SPECIALIST R/O C. diff 03/13/2024 03/13/2024 03/14/2024 8:00 PM FINANCIAL REPORTING SPECIALIST R/O C. diff 03/14/2024 03/14/2024 03/15/2024 6:17 PM FINANCIAL REPORTING SPECIALIST documented as of this encounter Care Teams Sugar Mill Worker Relationship Specialty Start Date End Date Juventino Howe MD [address] [facility] [address] [place] [address] PCP - General Internal Medicine 11/04/11 documented as of this encounter
--- OUTSIDE RECORDS SUMMARY | 2024-12-07 18:05 | XMS_ITS | Encounter Summary ---
Author Organization [facility] Address [address] [place] [address] Care Team Providers Care Fire Technology Instructor Name Role Phone Juventino Howe MD Primary Care Provider [phone] Encounter Details Date Type Department Care Team (Late st Contact Info) Description 09/07/2005 Emergency HIS EMERG[facility]Y ROOM [facility] Urban Francis DO [address] [place] [address] Er, Authorized P NO ADDRESS ON FILE Abdominal Pain, Unspecified Site (Primary Dx) Social History Tobacco Use Types Packs/Day Years Used Date Smoking Tobacco: Never Assessed Comments Unknown Sex and Gender Information Value Date Recorded Sex Assigned at Not on file Legal Sex Female 3:38 AM COOK ROOM SUPERVISOR Gender Identity Not on file Sexual Orientation Not on file documented as of this encounter Plan of Treatment Upcoming Encounters Date Type Department Care Team (Late Contact Info) Description 12/12/2024 4:30 PM CDT App[facility]ment [facility] [place] 7[address] [facility] [address] [place] [address] Cata Terry, [place] [address] [facility] [place] [address] Maegan Duncan, Physical Therapist 12/19/2024 9:30 AM COOK ROOM SUPERVISOR Appointment [facility] Rad[facility] [address] [place] [address] Anselmo Durham MD 607 [facility] [address] [place] [address] 12/19/2024 10:40 AM COOK ROOM SUPERVISOR Office Visit [facility] EAR, NOSE AND THROAT [facility] [address] [facility] [address] [facility] [address] [place] [address] Anselmo Durham MD [address] [facility] [address] [place] [address] 12/20/2024 2:00 PM COOK ROOM SUPERVISOR Office Visit [facility] Internal Medicine Medical [place] [address] [facility] [address] [address] Juventino Howe MD [address] [facility] [address] [place] [address] 12/28/2024 2:45 PM COOK ROOM SUPERVISOR Office Visit [facility] Endocrinology [address] [facility] [address] [place] [address] Sheldon Canales MD [address] [facility] [address] [place] [address] 01/04/2025 2:00 PM COOK ROOM SUPERVISOR Office Visit [facility] Neurology [address] [facility] [address] [place] [address] Juventino Howe MD [address] [place] [address] Bobbi Davalos MD [address] [place] [address] 02/26/2025 3:10 PM COOK ROOM SUPERVISOR Office Visit [facility] Gastroenterology [address] [place] [address] Suzette Cody MD [address] [place] [address] 03/28/2025 2:30 PM COOK ROOM SUPERVISOR Office Visit [facility] Colon and Rectal Surgery [address] [place] [address] [place] [address] [place] [address] 10/30/2025 3:00 PM CDT Office Visit [facility] Pulmonology [facility] [address] [facility] [address] [place] [address] Everett Cam MD [address] [facility] [address] [place] [address] documented as of this encounter [...] Francis DO HEMATOLOGY ORDERABLES Final R esult Performing Organization Address [facility] de Phone Number INTERFACE SYSTEM [...] Francis DO HEMATOLOGY ORDERABLES Final R esult Performing Organization Address [facility] Phone Number INTERFACE SYSTEM Refer to clinic/hospital department * (ABNORMAL) C-REACTIVE PROTEIN (09/07/2005 11:10 PM CDT) CRP 4.1(H) 0.0 - 0.8 mg/dL INTERFACE SYSTEM 09/07/2005 11:1 0 PM CDT Urban Francis DO CHEMISTRY ORDERABLES Final Re sult Performing Organization Address [facility] de Phone Number INTERFACE SYSTEM Refer to clinic/hospital department documented in this encounter Visit Diagnoses Diagnosis Abdominal pain, unspecified site- Primary documented in this encounter Additional Health Concerns Infection Onset Date Last Indicated Resolved Time R/O Respiratory 01/11/2023 01/11/2023 01/11/2023 7 :48 PM COOK ROOM SUPERVISOR R/O Respiratory 02/19/2024 02/19/2024 02/19/2024 1 1:21 AM COOK ROOM SUPERVISOR Influenza 02/19/2024 02/19/2024 02/26/2024 1:16 AM COOK ROOM SUPERVISOR R/O Respiratory 03/13/2024 03/13/2024 03/13/2024 4 :20 PM COOK ROOM SUPERVISOR Human Metapneumovirus 03/13/2024 03/13/20242024 1:16 AM COOK ROOM SUPERVISOR R/O C. diff 03/13/2024 03/13/2024 03/14/2024 8:00 PM COOK ROOM SUPERVISOR R/O C. diff 03/14/2024 03/14/2024 03/15/2024 6:17 PM COOK ROOM SUPERVISOR documented as of this encounter Care Teams Fire Technology Instructor Relationship Specialty Start Date End Date Juventino Howe MD [address] [facility] [address] [place] [address] PCP - General Internal Medicine 11/04/11 documented as of this encounter
--- OUTSIDE RECORDS SUMMARY | 2024-12-07 18:05 | XMS_ITS | Encounter Summary ---
Author Organization [facility] Address [address] [place] [address] Care Team Providers Care Executive Secretary Social Welfare Name Role Phone Juventino Howe MD Primary Care Provider [phone] Encounter Details Date Type Department Care Team (Late st Contact Info) Description 10/08/2006 Outpatient Historical [facility] Lynne Navarro MD [address] [place] [address] Social History Tobacco Use Types Packs/Day Years Used Date Smoking Tobacco: Never Assessed Comments Unknown Sex and Gender Information Value Date Recorded Sex Assigned at Not on file Legal Sex Female 3:38 AM EMERGENCY ROOM SPECIALIST Gender Identity Not on file Sexual Orientation Not on file documented as of this encounter Plan of Treatment Upcoming Encounters Date Type Department Care Team (Late st Contact Info) Description 12/12/2024 4:30 PM CDT [facility]ment [facility] [place] [address] [facility] [place] [place] [address] [place] [address] Cata Terry, [place] [address] [place] [address] Maegan Duncan, Physical Therapist 12/19/2024 9:30 AM EMERGENCY ROOM SPECIALIST [facility]ment [facility] S [facility] [address] [place] [address] Anselmo Durham MD [address] [facility] [address] [place] [address] 12/19/2024 10:40 AM EMERGENCY ROOM SPECIALIST Office Visit [facility] EAR, NOSE AND THROAT [facility] CANCER CENTER [address] [facility] [address] [place] [address] Anselmo Durahm MD 607 [facility] [address] [place] [address] 12/20/2024 2:00 PM EMERGENCY ROOM SPECIALIST Office Visit [facility] Internal Medicine Medical [place] A [address] [facility] [address] [address] Juventino Howe MD [address] [facility] [address] [place] [address] 12/28/2024 2:45 PM EMERGENCY ROOM SPECIALIST Office Visit [facility] Endocrinology [address] [facility] [address] [place] [address] Sheldon Canales MD [address] [facility] [address] [place] [address] 01/04/2025 2:00 PM EMERGENCY ROOM SPECIALIST Office Visit [facility] Neurology [address] [facility] [address] [place] [address] Juventino Howe MD [address] [facility] [address] [place] [address] Bobbi Davalos MD [address] [place] [address] 02/26/2025 3:10 PM EMERGENCY ROOM SPECIALIST Office Visit [facility] Gastroenterology [address] [place] [address] Suzette Cody MD [address] [place] [address] 03/28/2025 2:30 PM EMERGENCY ROOM SPECIALIST Office Visit [facility] Colon and Rectal Surgery [address] [place] [address] [place] [address] [place] [address] 10/30/2025 3:00 PM CDT Office Visit [facility] Pulmonology [facility] [address] [facility] [address] [place] [address] Everett Cam MD [address] [facility] [address] [place] [address] documented as of this encounter Visit Diagnoses Not on filedocumented in this encounter Additional Health Concerns Infection Onset Date Last Indicated Resolved Time R/O Respiratory 01/11/2023 01/11/2023 01/11/2023 7 :48 PM EMERGENCY ROOM SPECIALIST R/O Respiratory 02/19/2024 02/19/2024 02/19/2024 1 1:21 AM EMERGENCY ROOM SPECIALIST Influenza 02/19/2024 02/19/2024 02/26/2024 1:16 AM EMERGENCY ROOM SPECIALIST R/O Respiratory 03/13/2024 03/13/2024 03/13/2024 4 :20 PM EMERGENCY ROOM SPECIALIST Human Metapneumovirus 03/13/2024 03/13/20242024 1:16 AM EMERGENCY ROOM SPECIALIST R/O C. diff 03/13/2024 03/13/2024 03/14/2024 8:00 PM EMERGENCY ROOM SPECIALIST R/O C. diff 03/14/2024 03/14/2024 03/15/2024 6:17 PM EMERGENCY ROOM SPECIALIST documented as of this encounter Care Teams Executive Secretary Social Welfare Relationship Specialty Start Date End Date Juventino Howe MD [address] [facility] [address] [place] [address] PCP - General Internal Medicine 11/04/11 documented as of this encounter
--- OUTSIDE RECORDS SUMMARY | 2024-12-07 18:05 | XMS_ITS | Clinical Summary ---
Author Organization [facility] Address [address] [place] [address] Care Team Providers Care Emergency Room Orderly Name Role Phone Juventino Howe MD Primary Care Provider [phone] Tomer Thompson Unavailable [phone] Valerio Real MD Unavailable [phone] Em Valencia MD Unavailable [phone] Allergies Active Allergy Reactions Criticality Noted Date [...] (HCC) COPD (chronic obstructive pu lmonary disease) Gastric reflux Osteopenia Osteoporosis Family History Medical [...] oz pur e alcohol) Social Connection and Isolation Panel Answer Date Recorded In a typical week, how many times do you talk on the phone with family, friends, or neighbors? Three times a week 07/27/2022 How often do you get togethe r with friends or relatives? Three times a week 07/27/2022 How often do you attend chur or scientology services? 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 Not on file Not [...] history exists Fall Risk Assessment 09/25/2023 09/24/2022 Osteoporosis Screening-Bone Density Scan 12/12/2023 12/11/2021 Well Visit 65+ 06/30/2024 Covid-19 Vaccine (4 - 2024-2 6 season) 2024 06/14/2020, 05/31/2020, 05/03/2020 Influenza Vaccine (#1) 2024 , 11/22/2019, 12/13/2018, Additional history exists Colon Cancer Screening-FIT Discontinued 12/26/2017 Procedures Procedure Name Priority Date/Time Associated Diagnosis Comments SCREENING MAMMOGRAM 2D BILATERAL Schedule Routine, Read Routine (OP Routine) 08/06/2022 6:17 AM CDT OCCULT BLOOD, FECAL (FIT) STAT 12/26/2017 11:14 PM ASSEMBLER TRIM from Last 3 Months or Most Recently Relevant to Health Maintenance Results * Screening Mammogram 2D Bilateral (08/06/2022 6:17 AM CDT) Anatomical Region Laterality Modality Breast Bilateral Mammography us Historical Provider MD LARA MAMMO PROCEDURES Alice l Result * (ABNORMAL) Occult blood, fecal non neoplasm screening (12/26/2017 11:14 PM ASSEMBLER TRIM) Occult blood, fecal Positive(A) Negative [facility] (ANNEM[facility]IE) Collection date 1, feces [id number] [facility] ([facility]) Collection time 1, feces 2313 [facility] (ANNEM[facility]IE) Stool 12/26/2017 11:1 4 PM ASSEMBLER TRIM 12/26/2017 11:23 PM ASSEMBLER TRIM Narrative [facility] (ANNEMARIE) - 12/26/2017 11:24 PM ASSEMBLER TRIM us Ludwin Peralta MD LAB BODY FLUIDS AND STO OLS ORDERABLES Final Result [facility]ULI[facility] (ANNEMARIE) 1 [facility] Department [place] [address] from Last 3 Months or Most Recently Relevant to Health Maintenance Insurance ANTHEM ACCESS ANTHEM ACCESS [facility] HMO/PPO Address: [address] [address] Advance Directives For more information, please contact: [phone] * Full Code (Latest Code Status on File) Date Activated Date Inactivated Comments 07/26/2022 5:48 PM 07/28/2022 4:08 PM * Full Code Date Activated Date Inactivated Comments 07/26/2022 5:48 PM 07/26/2022 5:48 PM Care Teams Emergency Room Orderly Relationship Specialty Start Date End Date Juventino Howe MD [address] [place] [address] PCP - General 12/26/17 Tomer Thompson PA [address] [place] [address] Physician Loan Manager Neurosurgery 03/05/22 Valerio Real MD [address] [place] [address] Consulting Physician Neurosurgery 03/05/22 Em Valencia MD [address] [place] [address] Consulting Physician Pain Management 03/10/22
--- OUTSIDE RECORDS SUMMARY | 2024-12-07 18:05 | XMS_ITS | Encounter Summary ---
Author Organization [facility] Address [address] [place] [address] Care Team Providers Care Chief Optometry Service Name Role Phone Juventino Howe MD Primary Care Provider [phone] Encounter Details Date Type Department Care Team (Late st Contact Info) Description 03/31/2004 Emergency HIS EMERGENCY ROOM ST Aleksandar Al MD [address] [place] [address] Er, Authorized P NO ADDRESS ON FILE OTHR SPEC COMPLIC OF PROCEDURE NEC (Primary Dx) Social History Tobacco Use Types Packs/Day Years Used Date Smoking Tobacco: Never Assessed Comments Unknown Sex and Gender Information Value Date Recorded Sex Assigned at Not on file Legal Sex Female 3:38 AM FIRE MARSHAL REFINERY Gender Identity Not on file Sexual Orientation Not on file documented as of this encounter Plan of Treatment Upcoming Encounters Date Type Department Care Team (Late Contact Info) Description 12/12/2024 4:30 PM CDT Appointment [facility] [place] [address] [facility] [address] [place] [address] Cata Terry, [place] [address] [place] [address] Maegan Duncan, Physical Therapist 12/19/2024 9:30 AM FIRE MARSHAL REFINERY Appointment [facility] Rad[facility] S [facility] [address] [place] [address] Anselmo Durham MD 607 [facility] [address] [place] [address] 12/19/2024 10:40 AM FIRE MARSHAL REFINERY Office Visit [facility] EAR, NOSE AND THROAT [facility] CANCER CENTER [address] [facility] [address] [place] [address] Anselmo Durham MD [address] [facility] [address] [place] [address] 12/20/2024 2:00 PM FIRE MARSHAL REFINERY Office Visit [facility] Internal Medicine Medical [place] A [address] [facility] [address] [address] Juventino Howe MD [address] [facility] [address] [place] [address] 12/28/2024 2:45 PM FIRE MARSHAL REFINERY Office Visit [facility] Endocrinology [address] [facility] [address] [place] [address] Sheldon Canales MD [address] [facility] [address] [place] [address] 01/04/2025 2:00 PM FIRE MARSHAL REFINERY Office Visit [facility] Neurology [address] [facility] [address] [place] [address] Juventino Howe MD [address] [facility] [address] [place] [address] Bobbi Davalos MD [address] [facility] [address] [place] [address] 02/26/2025 3:10 PM FIRE MARSHAL REFINERY Office Visit [facility] Gastroenterology [address] [facility] [address] [place] [address] Suzette Cody MD [address] [facility] [address] [place] [address] 03/28/2025 2:30 PM FIRE MARSHAL REFINERY Office Visit [facility] Colon and Rectal Surgery [address] [place] [address] [place] [address] [place] [address] 10/30/2025 3:00 PM CDT Office Visit [facility] Pulmonology [facility] [address] [facility] [address] [address] [place] [address] Everett Cam MD [address] [facility] [address] [place] [address] documented as of this encounter Procedures Procedure Name Priority Date/Time Associated Diagnosis Comments ED HOLD Routine 04/01/2004 1:17 AM FIRE MARSHAL REFINERY CBC WITH DIFFERENTIAL Routine 04/01/2004 1:16 AM FIRE MARSHAL REFINERY CBC WITH DIFFERENTIAL Routine 04/01/2004 1:16 AM FIRE MARSHAL REFINERY URINALYSIS W/REFLEX MICROSCOPIC Routine 04/01/2004 1:16 AM FIRE MARSHAL REFINERY C-REACTIVE PROTEIN Routine 04/01/2004 1: 16 AM FIRE MARSHAL REFINERY documented in this encounter Results * ED HOLD (04/01/2004 1:17 AM FIRE MARSHAL REFINERY) SPECIMEN HOLD, BLOOD 7 days INTERFACE SYSTEM 04/01/2004 1:17 AM FIRE MARSHAL REFINERY us Mychal Talley DO CHEMISTRY ORDERABLES Final R esult INTERFACE SYSTEM Refer to clinic/hospital department * URINALYSIS (04/01/2004 1:16 AM FIRE MARSHAL REFINERY) COLOR UA Yellow INTERFACE SYSTEM CLARITY UA [...] Negative Negative INTERFACE SYSTEM 04/01/2004 1:16 AM FIRE MARSHAL REFINERY Mychal Tambone DO URINE ORDERABLES Final Resul t Performing Organization Address [facility] Phone Number INTERFACE SYSTEM Refer to clinic/hospital department * CBC WITH DIFFERENTIAL (04/01/2004 1:16 AM FIRE MARSHAL REFINERY) NEUTROPHILS 69 45 - 70 % INTERFAC [...] 0.20 K/uL INTERFACE SYSTEM 04/01/2004 1:16 AM FIRE MARSHAL REFINERY Mychal EpiGaNsydneye DO HEMATOLOGY ORDERABLES Final Result Performing Organization Address [facility] de Phone Number INTERFACE SYSTEM Refer to clinic/hospital department * (ABNORMAL) CBC WITH DIFFERENTIAL (04/01/2004 1:16 AM FIRE MARSHAL REFINERY) WBC 8.6 4.0 - 9.8 K/uL INTERFACE [...] 12.4 fL INTERFACE SYSTEM 04/01/2004 1:16 AM FIRE MARSHAL REFINERY Mychal Talley DO HEMATOLOGY ORDERABLES Final Result INTERFACE SYSTEM Refer to clinic/hospital department * (ABNORMAL) C-REACTIVE PROTEIN (04/01/2004 1:16 AM FIRE MARSHAL REFINERY) CRP 1.2(H) 0.0 - 0.8 mg/dL INTERFACE SYSTEM 04/01/2004 1:16 AM FIRE MARSHAL REFINERY Mychal Talley DO CHEMISTRY ORDERABLES Final R esult INTERFACE SYSTEM Refer to clinic/hospital department documented in this encounter Visit Diagnoses Diagnosis Other specified complications- Primary documented in this encounter Additional Health Concerns Infection Onset Date Last Indicated Resolved Time R/O Respiratory 01/11/2023 01/11/2023 01/11/2023 7 :48 PM FIRE MARSHAL REFINERY R/O Respiratory 02/19/2024 02/19/2024 02/19/2024 1 1:21 AM FIRE MARSHAL REFINERY Influenza 02/19/2024 02/19/2024 02/26/2024 1:16 AM FIRE MARSHAL REFINERY R/O Respiratory 03/13/2024 03/13/2024 03/13/2024 4 :20 PM FIRE MARSHAL REFINERY Human Metapneumovirus 03/13/2024 03/13/20242024 1:16 AM FIRE MARSHAL REFINERY R/O C. diff 03/13/2024 03/13/2024 03/14/2024 8:00 PM FIRE MARSHAL REFINERY R/O C. diff 03/14/2024 03/14/202403/15/2024 6:17 PM FIRE MARSHAL REFINERY documented as of this encounter Care Teams Chief Optometry Service Relationship Specialty Start Date End Date Juventino Howe MD [address] [facility] [address] [place] [address] PCP - General Internal Medicine 11/04/11 documented as of this encounter
--- OUTSIDE RECORDS SUMMARY | 2024-12-07 18:05 | XMS_ITS | Encounter Summary ---
Author Organization [employer] [facility] Address [address] [place] [address] Care Team Providers Care Data Entry Supervisor Name Role Phone Juventino Howe MD Primary Care Provider [phone] Encounter Details Date Type Department Care Team (Late st Contact Info) Description 08/13/2005 Orders Only [facility] Diabetic [facility] [id number] [place] [address]. [address] [place] [address] Randal Clark MD [address] [place] [address] Social History Tobacco Use Types Packs/Day Years Used Date Smoking Tobacco: Never Assessed Comments Unknown Sex and Gender Information Value Date Recorded Sex Assigned at Not on file Legal Sex Female 3:38 AM MEDICAL RECORDS DIRECTOR Gender Identity Not on file Sexual [...] The patient is being seen by a director of industrial relations.the pt notes hx of chronic constipation and [...] subcutaneous nodules or tightening. NEUROLOGIC: CRANIAL NERVES: animal science instructor II-XII grossly intact. PSYCHIATRIC: Judgment appropriate. Oriented. [...] also to see dr bruce teran an panelbeater for eval of her allergy problems. 300.00-ANXIETY [...] Info) Description 12/12/2024 4:30 PM CDT Appointment [facility] Therapy [facility] [address] [facility] [address] [place] [address] Cata Terry, [place] [address] [place] [address] Maegan Duncan, Physical Therapist 12/19/2024 9:30 AM MEDICAL RECORDS DIRECTOR Appointment [facility] S [facility] [address] [place] [address] Anselmo Durham MD [address] [facility] [address] [place] [address] 12/19/2024 10:40 AM MEDICAL RECORDS DIRECTOR Office Visit [facility] EAR, NOSE AND THROAT [facility] [address] [facility] [address] [place] [address] Anselmo Durham MD [address] [place] [address] 12/20/2024 2:00 PM MEDICAL RECORDS DIRECTOR Office Visit [facility] Internal Medicine Medical [place] [address] [facility] [address] [address] Juventino Howe MD [address] [facility] [address] [place] [address] 12/28/2024 2:45 PM MEDICAL RECORDS DIRECTOR Office Visit [facility] Endocrinology [address] [facility] [address] [place] [address] Sheldon Canales MD [address] [facility] [address] [place] [address] 01/04/2025 2:00 PM MEDICAL RECORDS DIRECTOR Office Visit [facility] Neurology [address] [facility] [address] [place] [address] Juventino Howe MD [address] [facility] [address] [place] [address] Bobbi Davalos MD [address] [facility] [address] [place] [address] 02/26/2025 3:10 PM MEDICAL RECORDS DIRECTOR Office Visit [facility] Gastroenterology [address] [facility] [address] [place] [address] Suzette Cody MD [address] [facility] [address] [place] [address] 03/28/2025 2:30 PM MEDICAL RECORDS DIRECTOR Office Visit [facility] Colon and Rectal Surgery [address] [place] [address] [place] [address] [place] [address] 10/30/2025 3:00 PM CDT Office Visit [facility] Pulmonology [facility] [address] [facility] [address] [place] [address] Everett Cam MD [address] [facility] [address] [place] [address] documented as of this encounter Visit Diagnoses Not on filedocumented in this encounter Additional Health Concerns Infection Onset Date Last Indicated Resolved Time R/O Respiratory 01/11/2023 01/11/2023 01/11/2023 7 :48 PM MEDICAL RECORDS DIRECTOR R/O Respiratory 02/19/2024 02/19/2024 02/19/2024 1 1:21 AM MEDICAL RECORDS DIRECTOR Influenza 02/19/2024 02/19/2024 02/26/2024 1:16 AM MEDICAL RECORDS DIRECTOR R/O Respiratory 03/13/2024 03/13/2024 03/13/2024 4 :20 PM MEDICAL RECORDS DIRECTOR Human Metapneumovirus 03/13/2024 03/13/20242024 1:16 AM MEDICAL RECORDS DIRECTOR R/O C. diff 03/13/2024 03/13/2024 03/14/2024 8:00 PM MEDICAL RECORDS DIRECTOR R/O C. diff 03/14/2024 03/14/2024 03/15/2024 6:17 PM MEDICAL RECORDS DIRECTOR documented as of this encounter Care Teams Data Entry Supervisor Relationship Specialty Start Date End Date Juventino Howe MD [address] [facility] [address] [place] [address] PCP - General Internal Medicine 11/04/11 documented as of this encounter
--- OUTSIDE RECORDS SUMMARY | 2024-12-07 18:05 | XMS_ITS | Encounter Summary ---
Author Organization [facility] Address [address] [place] [address] Care Team Providers Care Goring Cutter Name Role Phone Juventino Howe MD Primary Care Provider [phone] Encounter Details Date Type Department Care Team (Late st Contact Info) Description 07/06/2008 Emergency [facility] Er, Authorized P NO ADDRESS ON FILE Edd Ocampo MD [address] [place] [address] Social History Tobacco Use Types Packs/Day Years Used Date Smoking Tobacco: Never Alcohol Use Standard Drinks/Week Comments No 0 (1 standard drink = 0.6 oz pur e alcohol) Comments No Sex and Gender Information Value Date Recorded Sex Assigned at Not on file Legal Sex Female 3:38 AM DISPLAY ASSOCIATE Gender Identity Not on file Sexual Orientation Not on file documented as of this encounter Plan of Treatment Upcoming Encounters Date Type Department Care Team (Late Contact Info) Description 12/12/2024 4:30 PM CDT App[facility]ment [facility] [place] [address] [facility] [address] [place] [address] [place] [address] [place] [address] Maegan Duncan, Physical Therapist 12/19/2024 9:30 AM DISPLAY ASSOCIATE Appointment [facility] S [facility] [address] [place] [address] Anselmo Durham MD [address] [facility] [address] [place] [address] 12/19/2024 10:40 AM DISPLAY ASSOCIATE Office Visit [facility] EAR, NOSE AND THROAT [facility] CANCER CENTER [address] [facility] [address] [place] [address] Anselmo uDrham MD [address] [facility] [address] [place] [address] 12/20/2024 2:00 PM DISPLAY ASSOCIATE Office Visit [facility] Internal Medicine Medical [place] [address] [facility] [address] [address] Juventino Howe MD [address] [facility] [address] [place] [address] 12/28/2024 2:45 PM DISPLAY ASSOCIATE Office Visit [facility] Endocrinology [address] [facility] [address] [place] [address] Sheldon Canales MD [address] [facility] [address] [place] [address] 01/04/2025 2:00 PM DISPLAY ASSOCIATE Office Visit [facility] Neurology [address] [facility] [address] [place] [address] Juventino Howe MD [address] [facility] [address] [place] [address] Bobbi Davalos MD [address] [facility] [address] [place] [address] 02/26/2025 3:10 PM DISPLAY ASSOCIATE Office Visit [facility] Gastroenterology [address] [facility] [address] [place] [address] Suzette Cody MD [address] [facility] [address] [place] [address] 03/28/2025 2:30 PM DISPLAY ASSOCIATE Office Visit [facility] Colon and Rectal Surgery [address] [place] [address] [place] [address] [place] [address] 10/30/2025 3:00 PM CDT Office Visit [facility] Pulmonology [facility] [address] [facility] [address] [place] [address] Everett Cam MD [address] [facility] [address] [place] [address] documented as of this encounter [...] TOTAL PROTEIN 7.5 6.3 - 8.6 g/dL [facility] POTASSIUM 4.1 3.5 - 4.9 mmol/L [facility] GLUCOSE 88 65 - 99 mg/dL [facility] AST 18 12 - 32 U/L [facility] BUN 10 6 - 20 mg/dL [facility] CALCIUM 9.8 8.6 - 10.2 mg/dL [facility] ALBUMIN 4.6 3.4 - 4.8 g/dL [facility] CHLORIDE 101 96 - 108 mmol/L [facility] CREATININE 0.79 0.51 - 0.95 mg/dL [facility] ALT 18 0 - 31 U/L [facility] SODIUM 139 135 - 145 mmol/L [facility] ALKALINE PHOSPHATASE 116(H) 35 - 104 U/L [facility] BILIRUBIN TOTAL 0.3 0.2 - 1.0 mg/dL [facility] CO2 26 22 - 30 mmol/L [facility] GFR, >60 >=60 mL/min/1. [address] [facility] GFR >60 >=60 mL/min/1. [address] [facility] Comment: Modification of Diet in Renal Disease (MDRD) study formula. Estimated GFR rate interpretative information for both Americans and non- Americans is available on the [facility] Intranet at: [email or web address] Select: Lab Policies and Procedures Select: Reference Ranges - GFR 07/06/2008 6:10 PM CDT 07/06/2008 6:14 PM CDT us Edd Ocampo MD CHEMISTRY ORDERABLES Edited INTERFACE SYSTEM Refer to clinic/hospital department [facility] CLIA# [id number] [address] [place] [address] * TSH (07/06/2008 6:10 PM CDT) TSH 1.29 0.27 - 4.20 uU/mL [facility] 07/06/2008 6:10 PM CDT 07/06/2008 6:14 PM CDT Edd Ocampo MD CHEMISTRY ORDERABLES Final Re sult Performing Organization Address [facility] Phone Number INTERFACE SYSTEM Refer to clinic/hospital department [facility] CLIA# [id number] [address] [place] [address] * URINALYSIS (07/06/2008 6:10 PM CDT) NITRITE UA Negative Negative [facility] UROBILINOGEN UA <1 <=1 mg/dL [facility] PH UA 6.5 5.0 - 8.0 [facility] KETONES UA Negative Negative [facility] CLARITY UA Clear Clear [facility] PROTEIN UA Negative Negative [facility] BILIRUBIN UA Negative Negative [facility] LEUKOCYTE ESTERASE UA Negative Negative [facility] SPECIFIC GRAVITY UA 1.003 1.001 - 1.035 [facility] BLOOD UA Negative Negative [facility] GLUCOSE UA Negative Negative [facility] COLOR UA Colorless [facility] 07/06/2008 6:10 PM CDT 07/06/2008 6:14 PM CDT Edd Ocampo MD URINE ORDERABLES Final Result Performing Organization Address [facility] de Phone Number INTERFACE SYSTEM Refer to clinic/hospital department [facility] CLIA# [id number] [address] [place] [address] * (ABNORMAL) CBC WITH DIFFERENTIAL (07/06/2008 6:10 PM CDT) MPV 10.5 9.3 - 12.[address] [facility] HEMATOCRIT 43.8 35.5 - 44.0 % [facility] RDW-STDEV 45.8 37.1 - 48.[address] [facility] RBC 4.62 3.90 - 4.90 M/uL [facility] MCHC 34.9 31.5 - 35.5 % [facility] MCV 94.8 82.0 - 99.[address] [facility] PLATELETS 280 140 - 350 K/uL [facility] HEMOGLOBIN 15.3(H) 11.8 - 14.8 g/dL [facility] RDW 13.1 11.5 - 14.5 % [facility] WBC 9.7 4.0 - 9.8 K/uL [facility] MCH 33.1(H) 27.2 - 32.[address] [facility] BASOPHILS 0 0 - 2 % [facility] BASOPHILS ABSOLUTE 0.04 0.00 - 0.20 K/uL [facility] MONOCYTES 6 3 - 13 % [facility] MONOCYTE ABSOLUTE 0.59 0.10 - 1.30 K/uL [facility] NEUTROPHILS 58 45 - 70 % [facility] NEUTROPHIL ABSOLUTE 5.63 1.90 - 7.00 K/uL [facility] EOSINOPHILS 1 0 - 7 % [facility] EOSINOPHIL ABSOLUTE 0.09 0.00 - 0.70 K/uL [facility] LYMPHOCYTES 34 16 - 45 % [facility] LYMPHOCYTE ABSOLUTE 3.33 0.70 - 4.50 K/uL [facility] 07/06/2008 6:10 PM CDT 07/06/2008 6:14 PM CDT us Edd Ocampo MD HEMATOLOGY ORDERABLES Edited INTERFACE SYSTEM Refer to clinic/hospital department [facility] CLIA# [id number] [address] [place] [address] documented in this encounter Visit Diagnoses Not on filedocumented in this encounter Additional Health Concerns Infection Onset Date Last Indicated Resolved Time R/O Respiratory 01/11/2023 01/11/2023 01/11/2023 7 :48 PM DISPLAY ASSOCIATE R/O Respiratory 02/19/2024 02/19/2024 02/19/2024 1 1:21 AM DISPLAY ASSOCIATE Influenza 02/19/2024 02/19/2024 02/26/2024 1:16 AM DISPLAY ASSOCIATE R/O Respiratory 03/13/2024 03/13/2024 03/13/2024 4 :20 PM DISPLAY ASSOCIATE Human Metapneumovirus 03/13/2024 03/13/20242024 1:16 AM DISPLAY ASSOCIATE R/O C. diff 03/13/2024 03/13/2024 03/14/2024 8:00 PM DISPLAY ASSOCIATE R/O C. diff 03/14/2024 03/14/2024 03/15/2024 6:17 PM DISPLAY ASSOCIATE documented as of this encounter Care Teams Goring Cutter Relationship Specialty Start Date End Date Juventino Howe MD [address] [place] [address] PCP - General Internal Medicine 11/04/11 documented as of this encounter
--- OUTSIDE RECORDS SUMMARY | 2024-12-07 18:05 | XMS_ITS | Encounter Summary ---
Author Organization [facility] Address [address] [place] [address] Care Team Providers Care Salesperson Women'S Dresses Name Role Phone Juventino Howe MD Primary Care Provider [phone] Encounter Details Date Type Department Care Team (Late st Contact Info) Description 08/09/2005 Outpatient Historical [facility] [place] [address] [facility] [address] [place] [address] Abdominal Pain, Unspecified Site (Primary Dx) Social History Tobacco Use Types Packs/Day Years Used Date Smoking Tobacco: Never Assessed Comments Unknown Sex and Gender Information Value Date Recorded Sex Assigned at Not on file Legal Sex Female 3:38 AM SUBSTANCE ABUSE CLINICIAN Gender Identity Not on file Sexual Orientation Not on file documented as of this encounter Plan of Treatment Upcoming Encounters Date Type Department Care Team (Late st Contact Info) Description 12/12/2024 4:30 PM CDT [facility]ment [facility] [place] [address] [facility] [address] [place] [address] Cata Terry, [place] [address] [place] [address] Maegan Duncan, Physical Therapist 12/19/2024 9:30 AM SUBSTANCE ABUSE CLINICIAN [facility]ment [facility] [address] [facility] [address] [place] [address] Anselmo Durham MD 607 [facility] [address] [place] [address] 12/19/2024 10:40 AM SUBSTANCE ABUSE CLINICIAN Office Visit [facility] EAR, NOSE AND THROAT [facility] CANCER CENTER [address] [place] [address] Anselmo Durham MD [address] [facility] [address] [facility] [address] [address] [place] [address] 12/20/2024 2:00 PM SUBSTANCE ABUSE CLINICIAN Office Visit [facility] Internal Medicine Medical [place] A [address] [address] Juventino Howe MD [address] [place] [address] 12/28/2024 2:45 PM SUBSTANCE ABUSE CLINICIAN Office Visit [facility] Endocrinology [address] [place] [address] Sheldon Canales MD [address] [facility] [address] [place] [address] 01/04/2025 2:00 PM SUBSTANCE ABUSE CLINICIAN Office Visit [facility] Neurology [address] [place] [address] Juventino Howe MD [address] [place] [address] Bobbi Davalos MD [address] [place] [address] 02/26/2025 3:10 PM SUBSTANCE ABUSE CLINICIAN Office Visit [facility] Gastroenterology [address] [place] [address] Suzette Cody MD [address] [place] [address] 03/28/2025 2:30 PM SUBSTANCE ABUSE CLINICIAN Office Visit [facility] Colon and Rectal Surgery [address] [place] [address] [place] [address] [place] [address] 10/30/2025 3:00 PM CDT Office Visit [facility] Pulmonology [facility] [address] [facility] [address] [place] [address] Everett Cam MD [address] [facility] [address] [place] [address] documented as of this encounter [...] K/uL INTERFACE SYSTEM 08/10/2005 5:38 AM CDT Tyler Yeung MD HEMATOLOGY ORDERABLES Final Res ult Performing Organization Address [facility] Phone Number INTERFACE SYSTEM Refer to clinic/hospital department * (ABNORMAL) CBC WITH DIFFERENTIAL (08/10/2005 5:38 AM CDT) Pathologist [facility] WBC 10.7(H) 4.0 - 9.8 K/uL INTERFACE [...] Final Res ult Performing Organization Address [facility] de Phone Number INTERFACE SYSTEM Refer [...] Negative INTERFACE SYSTEM 08/09/2005 7:44 PM CDT Gabriel Randhawa MD URINE ORDERABLES Final Result Performing Organization Address [facility] Phone Number INTERFACE SYSTEM Refer [...] HEMATOLOGY ORDERABLES Final Result Performing Organization Address [facility] Phone Number INTERFACE SYSTEM Refer to [...] HEMATOLOGY ORDERABLES Final Result Performing Organization Address [facility] Phone Number INTERFACE SYSTEM Refer to clinic/hospital department * C-REACTIVE PROTEIN (08/09/2005 7:44 PM CDT) CRP <0.5 0.0 - 0.8 mg/dL INTERFACE SYSTEM 08/09/2005 7:44 PM CDT Gabriel Randhawa MD CHEMISTRY ORDERABLES F inal Result Performing Organization Address [facility] Phone Number INTERFACE SYSTEM Refer to clinic/hospital department * LIPASE (08/09/2005 7:44 PM CDT) LIPASE 31 13 - 60 U/L INTERFAC E SYSTEM 08/09/2005 7:44 PM CDT Gabriel Randhawa MD CHEMISTRY ORDERABLES F inal Result Performing Organization Address [facility] Phone Number INTERFACE SYSTEM Refer to clinic/hospital department * AMYLASE (08/09/2005 7:44 PM CDT) AMYLASE 31 28 - 100 U/L INTERFACE SYSTEM 08/09/2005 7:44 PM CDT Gabriel Randhawa MD CHEMISTRY ORDERABLES F inal Result INTERFACE SYSTEM Refer to clinic/hospital department * POC GLUCOSE (08/09/2005 7:11 PM CDT) COMMENT, GLU POC Notified RN INTERFACE SYSTEM GLUCOSE POC 75 65 - 109 mg/dL INTERFACE SYSTEM 08/09/2005 7:11 PM CDT Tyler Yeung MD POINT OF CARE TESTING Final Res ult Performing Organization Address [facility] Co de Phone Number INTERFACE SYSTEM Refer to clinic/hospital department documented in this encounter Visit Diagnoses Diagnosis Abdominal pain, unspecified site- Primary documented in this encounter Additional Health Concerns Infection Onset Date Last Indicated Resolved Time R/O Respiratory 01/11/2023 01/11/2023 01/11/2023 7 :48 PM SUBSTANCE ABUSE CLINICIAN R/O Respiratory 02/19/2024 02/19/2024 02/19/2024 1 1:21 AM SUBSTANCE ABUSE CLINICIAN Influenza 02/19/2024 02/19/2024 02/26/2024 1:16 AM SUBSTANCE ABUSE CLINICIAN R/O Respiratory 03/13/2024 03/13/2024 03/13/2024 4 :20 PM SUBSTANCE ABUSE CLINICIAN Human Metapneumovirus 03/13/2024 03/13/20242024 1:16 AM SUBSTANCE ABUSE CLINICIAN R/O C. diff 03/13/2024 03/13/2024 03/14/2024 8:00 PM SUBSTANCE ABUSE CLINICIAN R/O C. diff 03/14/2024 03/14/2024 03/15/2024 6:17 PM SUBSTANCE ABUSE CLINICIAN documented as of this encounter Care Teams Salesperson Women'S Dresses Relationship Specialty Start Date End Date Juventino Howe MD [address] [facility] [address] [place] [address] PCP - General Internal Medicine 11/04/11 documented as of this encounter
--- OUTSIDE RECORDS SUMMARY | 2024-12-07 18:05 | XMS_ITS | Encounter Summary ---
Author Organization [email or web address] Address [address] [place] [address] Care Team Providers Care Grand Jury Deputy Sheriff Name Role Phone Juventino Howe MD Primary Care Provider [phone] Encounter Details Date Type Department Care Team (Late Contact Info) Description 09/30/2006 Inpatient Historical [facility] Jonathan Mantilla MD [address] [place] [address] Lynne Escobar MD [address] [place] [address] Other Specified Genital Prolapse (Primary Dx) Social History Tobacco Use Types Packs/Day Years Used Date Smoking Tobacco: Never Assessed Comments Unknown Sex and Gender Information Value Date Recorded Sex Assigned at Not on file Legal Sex Female 3:38 AM SLURRY MIXER Gender Identity Not on file Sexual Orientation Not on file documented as of this encounter Plan of Treatment Upcoming Encounters Date Type Department Care Team (Late Contact Info) Description 12/12/2024 4:[address] [facility] [place] [address] [address] [place] [address] [place] [address] Maegan Duncan, Physical Therapist 12/19/2024 9:30 AM SLURRY MIXER Appointment [facility] Radiology [address] [place] [address] Anselmo Durham MD [address] [facility] [address] [place] [address] 12/19/2024 10:40 AM SLURRY MIXER Office Visit [facility] EAR, NOSE AND THROAT [facility] [address] [facility] [address] [place] [address] Anselmo Durham MD [address] [facility] [address] [place] [address] 12/20/2024 2:00 PM SLURRY MIXER Office Visit [facility] Internal Medicine Medical [place] [address] [facility] [address] [address] Juventino Howe MD [address] [facility] [address] [place] [address] 12/28/2024 2:45 PM SLURRY MIXER Office Visit [facility] Endocrinology [address] [facility] [address] [place] [address] Sheldon Canales MD [address] [facility] [address] [place] [address] 01/04/2025 2:00 PM SLURRY MIXER Office Visit [facility] Neurology [address] [facility] [address] [place] [address] Juventino Howe MD [address] [facility] [address] [place] [address] Bobbi Davalos MD [address] [facility] [address] [place] [address] 02/26/2025 3:10 PM SLURRY MIXER Office Visit [facility] Gastroenterology [address] [facility] [address] [place] [address] Suzette Cody MD [address] [facility] [address] [place] [address] 03/28/2025 2:30 PM SLURRY MIXER Office Visit [facility] Colon and Rectal Surgery [address] [place] [address] [place] [address] [place] [address] 10/30/2025 3:00 PM CDT Office Visit [facility] Pulmonology [facility] [address] [facility] [address] [place] [address] Everett Cam MD [address] [facility] [address] [place] [address] documented as of this encounter Visit Diagnoses Diagnosis Other specified genital prolapse(618.89)- Primary Other specified genital prolapse documented in this encounter Additional Health Concerns Infection Onset Date Last Indicated Resolved Time R/O Respiratory 01/11/2023 01/11/2023 01/11/2023 7 :48 PM SLURRY MIXER R/O Respiratory 02/19/2024 02/19/2024 02/19/2024 1 1:21 AM SLURRY MIXER Influenza 02/19/2024 02/19/2024 02/26/2024 1:16 AM SLURRY MIXER R/O Respiratory 03/13/2024 03/13/2024 03/13/2024 4 :20 PM SLURRY MIXER Human Metapneumovirus 03/13/2024 03/13/20242024 1:16 AM SLURRY MIXER R/O C. diff 03/13/2024 03/13/2024 03/14/2024 8:00 PM SLURRY MIXER R/O C. diff 03/14/2024 03/14/2024 03/15/2024 6:17 PM SLURRY MIXER documented as of this encounter Care Teams Grand Jury Deputy Sheriff Relationship Specialty Start Date End Date Juventino Howe MD [address] [facility] [address] [place] [address] PCP - General Internal Medicine 11/04/11 documented as of this encounter
--- OUTSIDE RECORDS SUMMARY | 2024-12-07 18:05 | XMS_ITS | Encounter Summary ---
Author Organization [facility] Address [address] [place] [address] Care Team Providers Care Metal Burnisher Name Role Phone Juventino Howe MD Primary Care Provider [phone] Encounter Details Date Type Department Care Team (Latest Contact Info) Description 10/13/2006 Outpatient Historical [facility] Lynne Navarro MD [address] [place] [address] Unspecified Constipation (Primary Dx) Social History Tobacco Use Types Packs/Day Years Used Date Smoking Tobacco: Never Assessed Comments Unknown Sex and Gender Information Value Date Recorded Sex Assigned at Not on file Legal Sex Female 3:38 AM CHECKER DUMP GROUNDS Gender Identity Not on file Sexual Orientation Not on file documented as of this encounter Plan of Treatment Upcoming Encounters Date Type Department Care Team (Late st Contact Info) Description 12/12/2024 4:30 PM CDT Appointment [facility] [place] [address] [facility] 145 [place] [address] Cata Terry, [place] [address] [place] [address] Maegan Duncan, Physical Therapist 12/19/2024 9:30 AM CHECKER DUMP GROUNDS Appointment [facility] Radiology S [facility] [address] [place] [address] Anselmo Durham MD 607 [facility] [address] [place] [address] 12/19/2024 10:40 AM CHECKER DUMP GROUNDS Office Visit [facility] EAR, NOSE AND THROAT [facility] [address] [place] [address] Anselmo Durham MD [address] [place] [address] 12/20/2024 2:00 PM CHECKER DUMP GROUNDS Office Visit [facility] Internal Medicine Medical [place] [address] [address] Juventino Howe MD [address] [place] [address] 12/28/2024 2:45 PM CHECKER DUMP GROUNDS Office Visit [facility] Endocrinology [address] [place] [address] Sheldon Canales MD [address] [facility] [address] [place] [address] 01/04/2025 2:00 PM CHECKER DUMP GROUNDS Office Visit [facility] Neurology [address] [place] [address] Juventino Howe MD [address] [place] [address] Bobbi Davalos MD [address] [place] [address] 02/26/2025 3:10 PM CHECKER DUMP GROUNDS Office Visit [facility] Gastroenterology [place] [address] [place] [address] Suzette Cody MD [address] [address] [place] [address] 03/28/2025 2:30 PM CHECKER DUMP GROUNDS Office Visit [facility] Colon and Rectal Surgery [address] [place] [address] [place] [address] [place] [address] 10/30/2025 3:00 PM CDT Office Visit [facility] Pulmonology [facility] [address] [address] [place] [address] Everett Cam MD [address] [facility] [address] [place] [address] documented as of this encounter [...] K/uL INTERFACE SYSTEM 10/13/2006 3:33 PM CDT us Lynne Escobar MD HEMATOLOGY ORDERABLES Edited Performing Organization Address [facility] Phone Number INTERFACE SYSTEM [...] MD HEMATOLOGY ORDERABLES Edited Performing Organization Address [facility] Phone Number INTERFACE SYSTEM Refer to clinic/hospital department * C-REACTIVE PROTEIN (10/13/2006 3:33 PM CDT) CRP <0.2 0.0 - 0.8 mg/dL INTERFACE SYSTEM 10/13/2006 3:33 PM CDT us Lynne Escobar MD CHEMISTRY ORDERABLES Edited Performing Organization Address [facility] Co de Phone Number INTERFACE SYSTEM [...] and non- Americans is available on the [facility] Intranet at: [email or web address] Select: Lab Policies and Procedures Select: Reference Ranges - GFR 10/13/2006 3:33 PM CDT Lynne Escobar MD CHEMISTRY ORDERABLES Edited INTERFACE SYSTEM Refer to clinic/hospital department documented in this encounter Visit Diagnoses Diagnosis Unspecified constipation- Primary documented in this encounter Additional Health Concerns Infection Onset Date Last Indicated Resolved Time R/O Respiratory 01/11/2023 01/11/2023 01/11/2023 7 :48 PM CHECKER DUMP GROUNDS R/O Respiratory 02/19/2024 02/19/2024 02/19/2024 1 1:21 AM CHECKER DUMP GROUNDS Influenza 02/19/2024 02/19/2024 02/26/2024 1:16 AM CHECKER DUMP GROUNDS R/O Respiratory 03/13/2024 03/13/2024 03/13/2024 4 :20 PM CHECKER DUMP GROUNDS Human Metapneumovirus 03/13/2024 03/13/20242024 1:16 AM CHECKER DUMP GROUNDS R/O C. diff 03/13/2024 03/13/2024 03/14/2024 8:00 PM CHECKER DUMP GROUNDS R/O C. diff 03/14/2024 03/14/2024 03/15/2024 6:17 PM CHECKER DUMP GROUNDS documented as of this encounter Care Teams Metal Burnisher Relationship Specialty Start Date End Date Juventino Howe MD [address] [facility] [address] [place] [address] PCP - General Internal Medicine 11/04/11 documented as of this encounter
--- OUTSIDE RECORDS SUMMARY | 2024-12-07 18:05 | XMS_ITS | Encounter Summary ---
Author Organization [facility] Address [address] [place] [address] Care Team Providers Care Web Press Operator Assistant Name Role Phone Juventino Howe MD Primary Care Provider [phone] Encounter Details Date Type Department Care Team (Latest Contact Info) Description 08/24/2008 Outpatient Historical [facility], [address] Sheldon Canales MD [address] [facility] [address] [place] [address] Nontoxic Uninodular Goiter Social History Tobacco Use Types Packs/Day Years Used Date Smoking Tobacco: Never Alcohol Use Standard Drinks/Week Comments No 0 (1 standard drink = 0.6 oz pur e alcohol) Comments No Sex and Gender Information Value Date Recorded Sex Assigned at Not on file Legal Sex Female 3:38 AM PROFESSIONAL CASTER Gender Identity Not on file Sexual Orientation Not on file documented as of this encounter Plan of Treatment Upcoming Encounters Date Type Department Care Team (Late st Contact Info) Description 12/12/2024 4:30 PM CDT Appointment [facility] Therapy Services [place] [address] [place] [phone] Cata Terry, [place] [address] [place] [address] Maegan Duncan, Physical Therapist 12/19/2024 9:30 AM PROFESSIONAL CASTER Appointment [facility] Radiology [address] [place] [address] Anselmo Durham MD 607 [facility] [address] [place] [address] 12/19/2024 10:40 AM PROFESSIONAL CASTER Office Visit [facility] EAR, NOSE AND THROAT [facility] [address] [facility] [address] [place] [address] Anselmo Durham MD 607 [facility] [address] [place] [address] 12/20/2024 2:00 PM PROFESSIONAL CASTER Office Visit [facility] Internal Medicine Medical [place] [address] [facility] [address] [address] Juventino Howe MD [address] [facility] [address] [place] [address] 12/28/2024 2:45 PM PROFESSIONAL CASTER Office Visit [facility] Endocrinology [address] [facility] [address] [place] [address] Sheldon Canales MD [address] [facility] [address] [place] [address] 01/04/2025 2:00 PM PROFESSIONAL CASTER Office Visit [facility] Neurology [address] [facility] [address] [place] [address] Juventino Howe MD [address] [facility] [address] [place] [address] Bobbi Davalos MD [address] [facility] [address] [place] [address] 02/26/2025 3:10 PM PROFESSIONAL CASTER Office Visit [facility] Gastroenterology [place] [address] [facility] [address] [place] [address] Suzette Cody MD [address] [facility] [address] [place] [address] [place] [address] 03/28/2025 2:30 PM PROFESSIONAL CASTER Office Visit [facility] Colon and Rectal Surgery [address] [place] [address] [place] [address] [place] [address] 10/30/2025 3:00 PM CDT Office Visit [facility] Pulmonology [facility] [address] [place] [address] Everett Cam MD [address] [facility] [address] [place] [address] documented as of this encounter Visit Diagnoses Diagnosis Nontoxic uninodular goiter documented in this encounter Additional Health Concerns Infection Onset Date Last Indicated Resolved Time R/O Respiratory 01/11/2023 01/11/2023 01/11/2023 7 :48 PM PROFESSIONAL CASTER R/O Respiratory 02/19/2024 02/19/2024 02/19/2024 1 1:21 AM PROFESSIONAL CASTER Influenza 02/19/2024 02/19/2024 02/26/2024 1:16 AM PROFESSIONAL CASTER R/O Respiratory 03/13/2024 03/13/2024 03/13/2024 4 :20 PM PROFESSIONAL CASTER Human Metapneumovirus 03/13/2024 03/13/20242024 1:16 AM PROFESSIONAL CASTER R/O C. diff 03/13/2024 03/13/2024 03/14/2024 8:00 PM PROFESSIONAL CASTER R/O C. diff 03/14/2024 03/14/2024 03/15/2024 6:17 PM PROFESSIONAL CASTER documented as of this encounter Care Teams Web Press Operator Assistant Relationship Specialty Start Date End Date Juventino Howe MD [address] [place] [address] PCP - General Internal Medicine 11/04/11 documented as of this encounter
--- OUTSIDE RECORDS SUMMARY | 2024-12-07 18:05 | XMS_ITS | Encounter Summary ---
Author Organization [facility] Address [address] [place] [address] Care Team Providers Care Building Architectural Designer Name Role Phone Juventino Howe MD Primary Care Provider [phone] Encounter Details Date Type Department Care Team (Late st Contact Info) Description 10/05/2007 Outpatient Historical [facility] Nixon Price Jr., MD NO ADDRESS ON FILE Abnormal Mammogram, Unspecified Social History Tobacco Use Types Packs/Day Years Used Date Smoking Tobacco: Never Assessed Comments Unknown Sex and Gender Information Value Date Recorded Sex Assigned at Not on file Legal Sex Female 3:38 AM CEO & BOARD DIRECTOR Gender Identity Not on file Sexual Orientation Not on file documented as of this encounter Plan of Treatment Upcoming Encounters Date Type Department Care Team (Late st Contact Info) Description 12/12/2024 4:[address] [facility] Therapy Services [place] 755 [facility] 145 [place] [phone] Cata Terry, [place] [address] [place] [address] Maegan Duncan, Physical Therapist 12/19/2024 9:30 AM CEO & BOARD DIRECTOR Appointment [facility] Radiology S [facility] [address] [place] [address] Anselmo Durham MD 607 [facility] [address] [place] [address] 12/19/2024 10:40 AM CEO & BOARD DIRECTOR Office Visit [facility] EAR, NOSE AND THROAT [facility] [address] [facility] [address] [place] [address] Anselmo Durham MD [address] [place] [address] 12/20/2024 2:00 PM CEO & BOARD DIRECTOR Office Visit [facility] Internal Medicine Medical [place] [address] [address] Juventino Howe MD [address] [place] [address] 12/28/2024 2:45 PM CEO & BOARD DIRECTOR Office Visit [facility] Endocrinology [address] [facility] [address] [place] [address] Sheldon Canales MD [address] [facility] [address] [place] [address] 01/04/2025 2:00 PM CEO & BOARD DIRECTOR Office Visit [facility] Neurology [address] [place] [address] Juventino Howe MD [address] [place] [address] Bobbi Davalos MD [address] [place] [address] 02/26/2025 3:10 PM CEO & BOARD DIRECTOR Office Visit [facility] Gastroenterology [place] [address] [place] [address] Suzette Cody MD [address] [place] [address] 03/28/2025 2:30 PM CEO & BOARD DIRECTOR Office Visit [facility] Colon and Rectal Surgery [address] [place] [address] [place] [address] [place] [address] 10/30/2025 3:00 PM CDT Office Visit [facility] Pulmonology [facility] [address] [facility] [address] [place] [address] Everett Cam MD [address] [facility] [address] [place] [address] documented as of this encounter Procedures Procedure Name Priority Date/Time Associated Diagnosis Comments US PELVIS + TRANSVAG NON OB Timed Study 10/05/2007 9:45 AM CDT documented in this encounter Results * US PELVIS + TRANSVAG NON OB (10/05/2007 9:45 AM CDT) Anatomical Region Laterality Modality Pelvis Other 10/05/2007 9:45 AM CDT Narrative 10/05/2007 10:[address] [facility] [address], [place] [address] Admit Date: 10/05/2007 DUYEN OROSCO Sex: F Admit Prov: NIXON PRICE Date: 1960 Primary Care Prov: CMRN: [id number] Room: [facility] SSN: [id number] IMAGING SERVICES Ordering Prov: N/A Accession Number: [id number] Interpretation EXAMINATION: ULTRASOUND OF THE PELVIS TRANSABDOMINAL [...] Procedure Note Donny Perera MD - 10/05/2007 [facility] [address], [place] [address] Admit Date: 10/05/2007 DUYEN OROSCO Sex: F Admit Prov: NIXON PRICE Date: 1960 Primary Care Prov: CMRN: [id number] Room: [facility] SSN: [id number] IMAGING SERVICES Ordering Prov: N/A Interpretation EXAMINATION: [...] PERERA 10/05/2007 22:17 Transcribed: 10/05/2007 14:01 SJ Nixon Pirce Jr., MD ORDERABLES Final R esult documented in this encounter Visit Diagnoses Diagnosis Abnormal mammogram, unspecified documented in this encounter Additional Health Concerns Infection Onset Date Last Indicated Resolved Time R/O Respiratory 01/11/2023 01/11/2023 01/11/2023 7 :48 PM CEO & BOARD DIRECTOR R/O Respiratory 02/19/2024 02/19/2024 02/19/2024 1 1:21 AM CEO & BOARD DIRECTOR Influenza 02/19/2024 02/19/2024 02/26/2024 1:16 AM CEO & BOARD DIRECTOR R/O Respiratory 03/13/2024 03/13/2024 03/13/2024 4 :20 PM CEO & BOARD DIRECTOR Human Metapneumovirus 03/13/2024 03/13/20242024 1:16 AM CEO & BOARD DIRECTOR R/O C. diff 03/13/2024 03/13/2024 03/14/2024 8:00 PM CEO & BOARD DIRECTOR R/O C. diff 03/14/2024 03/14/2024 03/15/2024 6:17 PM CEO & BOARD DIRECTOR documented as of this encounter Care Teams Building Architectural Designer Relationship Specialty Start Date End Date Juventino Howe MD [address] [facility] [address] [place] [address] PCP - General Internal Medicine 11/04/11 documented as of this encounter
--- OUTSIDE RECORDS SUMMARY | 2024-12-07 18:05 | XMS_ITS | Encounter Summary ---
Author Organization [facility] Address [address] [place] [address] Care Team Providers Care Sales Agent Casualty Insurance Name Role Phone Juventino Howe MD Primary Care Provider [phone] Encounter Details Date Type Department Care Team (Late Contact Info) Description 09/15/2008 Outpatient Historical [facility] Lynne Escobar MD [address] [place] [address] Social History Tobacco Use Types Packs/Day Years Used Date Smoking Tobacco: Never Alcohol Use Standard Drinks/Week Comments No 0 (1 standard drink = 0.6 oz pur e alcohol) Comments No Sex and Gender Information Value Date Recorded Sex Assigned at Not on file Legal Sex Female 3:38 AM SALES AUDIT CLERK Gender Identity Not on file Sexual Orientation Not on file documented as of this encounter Plan of Treatment Upcoming Encounters Date Type Department Care Team ([facility] Contact Info) Description 12/12/2024 4:30 PM CDT Appointment [facility] Therapy Services [place] 7[address] [facility] [address] [place] [address] Cata Terry, [place] [address] [place] [address] Maegan Duncan, Physical Therapist 12/19/2024 9:30 AM SALES AUDIT CLERK Appointment [facility] Rad[facility] S [facility] [address] [place] [address] Anselmo Durham MD [address] [facility] [address] [place] [address] 12/19/2024 10:40 AM SALES AUDIT CLERK Office Visit [facility] EAR, NOSE AND THROAT [facility] [address] [facility] [address] [place] [address] Anselmo Durham MD [address] [facility] [address] [place] [address] 12/20/2024 2:00 PM SALES AUDIT CLERK Office Visit [facility] Internal Medicine Medical [place] [address] [facility] [address] [address] Juventino Howe MD [address] [facility] [address] [place] [address] 12/28/2024 2:45 PM SALES AUDIT CLERK Office Visit [facility] Endocrinology [address] [facility] [address] [place] [address] Sheldon Canales MD [address] [facility] [address] [place] [address] 01/04/2025 2:00 PM SALES AUDIT CLERK Office Visit [facility] Neurology [address] [facility] [address] [place] [address] Juventino Howe MD [address] [facility] [address] [place] [address] Bobbi Davalos MD [address] [facility] [address] [place] [address] 02/26/2025 3:10 PM SALES AUDIT CLERK Office Visit [facility] Gastroenterology [address] [address] [facility] [address] [place] [address] Suzette Cody MD [address] [facility] [address] [place] [address] 03/28/2025 2:30 PM SALES AUDIT CLERK Office [facility] Colon and Rectal Surgery [address] [facility] [address] [place] [address] [place] [address] [place] [address] 10/30/2025 3:00 PM CDT Office Visit [facility] Pulmonology [facility] [address] [facility] [address] [place] [address] Everett Cam MD [address] [facility] [address] [place] [address] documented as of this encounter Visit Diagnoses Not on filedocumented in this encounter Additional Health Concerns Infection Onset Date Last Indicated Resolved Time R/O Respiratory 01/11/2023 01/11/2023 01/11/2023 7 :48 PM SALES AUDIT CLERK R/O Respiratory 02/19/2024 02/19/2024 02/19/2024 1 1:21 AM SALES AUDIT CLERK Influenza 02/19/2024 02/19/2024 02/26/2024 1:16 AM SALES AUDIT CLERK R/O Respiratory 03/13/2024 03/13/2024 03/13/2024 4 :20 PM SALES AUDIT CLERK Human Metapneumovirus 03/13/2024 03/13/20242024 1:16 AM SALES AUDIT CLERK R/O C. diff 03/13/2024 03/13/2024 03/14/2024 8:00 PM SALES AUDIT CLERK R/O C. diff 03/14/2024 03/14/2024 03/15/2024 6:17 PM SALES AUDIT CLERK documented as of this encounter Care Teams Sales Agent Casualty Insurance Relationship Specialty Start Date End Date Juventino Howe MD [address] [place] [address] PCP - General Internal Medicine 11/04/11 documented as of this encounter
--- OUTSIDE RECORDS SUMMARY | 2024-12-07 18:05 | XMS_ITS | Clinical Summary ---
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 occur. All results should be interpreted in the context of clinical findings, relevant history, and other laboratory data. Detection of antibodies was performed by Radioimmunoassay (ALESHA) methodology. Limitations of analysis: Reagent effectiveness may affect the signal intensity of the response. Although rare, false positive or false negative results may occur. All results should be interpreted in the context of clinical findings, relevant history, and other laboratory data. MUSK REFERENCES [employer], [facility] Comment: 1. Alexa Huynh et al. (2005) ERLIN 293: 1906-14. (PMID: 11794386) 2. KARMA Kilgore et al. (1999) Postgrad Med 107: 211-4, 220-2. (PMID: 16140563) 3. Paras Bernstein et al. (2014) J Autoimmun 52: 90-100. (PMID: 61536790) 4. Lang Weeks et al. (2013) Autoimmun Rev 12: 931-5. (PMID: 04907774) This test was developed and its analytical performance characteristics have been determined by [facility]. It has not been cleared or approved by the U.S. Food and Drug Administration. This assay has been validated pursuant to the CLIA regulations and is used for clinical purposes. Laboratory oversight provided by Torrey Harper M.D., Ph.D., CLIA license felix, [facility] (CLIA# [id number]) Testing performed at: [facility] [address] [place] [address] 1. Alexa Huynh et richar. (2005) ERLIN 293; 1906-14. (PMID: 45500848) 2. KARMA Kilgore et al. (1999) Postgrad Med 107: 211-4, 220-2. (PMID: 38196969) 3. Paras Bernstein et al. (2014) J Autoimmun 52: 90-100. (PMID: 45178131) 4. Lang Weeks et al. (2013) Autoimmun Rev 12: 931-5. (PMID: 10327108) Note 1 For additional information, please refer to http://education.Tivix/faq/NDW847 (This link is being provided for informational/ educational purposes only.) Note 2 This test was developed and its analytical performance characteristics have been determined by [email or web address]. It has not been cleared or approved by the FDA. This assay has been validated pursuant to the CLIA regulations and is used for clinical purposes. FASTING:UNKNOWN FASTING: UNKNOWN Test Performed at: [facility] [address] [place] [id number] Torrey Harper Blood 11/30/2024 11/30/2024 4:0 0 PM CDT Juventino Howe MD CHEMISTRY ORDERABLES Final Resul t Performing Organization Address City/[facility] Co de Phone Number [facility] [phone] [facility] [address] [place] [phone] * HLA B27 (11/30/2024 12:00 AM CDT) Pathologist [facility] HLA B27 NEGATIVE NEGATIVE [facility] [employer] Jacinto Comment: FASTING:UNKNOWN FASTING: UNKNOWN Test Performed at: [email or web address] [address] [place] [address] Yogesh Castillo Blood 11/30/2024 11/30/2024 4:0 0 PM CDT Juventino Howe MD CHEMISTRY ORDERABLES Final Resul t Performing Organization Address [facility] Co de Phone Number [facility] [phone] [facility] [address] [place] [address] * (ABNORMAL) VITAMIN B12 AND FOLATE (11/30/2024 12:00 AM CDT) Only the most recent of2 resultswithin the time period is included. Pathologist [facility] VITAMIN B12 645 200 - 1100 pg/mL [facility] FOLATE, SERUM 4.5(L) ng/mL [facility] Comment: Reference Range Low: <3.4 Borderline: 3.4-5.4 Normal: >5.4 Test Performed at: [email or web address] [address] [facility] [place] [address] Cha De La Rosa MD Blood 11/30/2024 11/30/2024 4:0 0 PM CDT Juventino Howe MD CHEMISTRY ORDERABLES Final Resul t Performing Organization Address City/[facility] Co de Phone Number [facility] [phone] [email or web address] [address] * CYCLIC CITRULLINATED PEPTIDE AB IGG (11/30/2024 12:00 AM CDT) [facility] CYCLIC CITRULLINATED PEPTIDE AB IGG <16 UNITS [email or web address] Comment: Reference Range Negative: <20 Weak Positive: 20-39 Moderate Positive: 40-59 Strong Positive: >59 FASTING:UNKNOWN FASTING: UNKNOWN Test Performed at: [email or web address] [address] Cha De La Rosa MD Blood 11/30/2024 11/30/2024 4:0 0 PM CDT Juventino Howe MD CHEMISTRY ORDERABLES Final Resul t Performing Organization Address [facility] de Phone Number [facility] [phone] [facility] [employer] [address] * (ABNORMAL) CBC WITH DIFFERENTIAL (11/30/2024 12:00 AM CDT) Only the most recent of2 resultswithin the time period is included. [facility] WBC 9.6 3.8 - 10.8 Thousand/ uL [facility] RBC 4.72 3.80 - 5.10 Million/u L [facility] HEMOGLOBIN 15.2 11.7 - 15.5 g/dL [facility] HEMATOCRIT 45.9(H) 35.0 - 45.0 % [facility] MCV 97.2 80.0 - 100.0 fL [facility] MCH 32.2 27.0 - 33.0 pg [facility] MCHC 33.1 32.0 - 36.0 g/dL [facility] Comment: For adults, a slight decrease in the calculated MCHC value (in the range of 30 to 32 g/dL) is most likely not clinically significant; however, it should be interpreted with caution in correlation with other red cell parameters and the patient's clinical condition. RDW 12.2 11.0 - 15.0 % [facility] PLATELETS 359 140 - 400 Thousand/ uL [facility] MPV 10.5 7.5 - 12.5 fL [facility] NEUTROPHIL ABSOLUTE 8,362(H) 1,500 - 7,800 cells/uL [facility] LYMPHOCYTE ABSOLUTE 874 850 - 3,900 cells/uL [facility] MONOCYTE ABSOLUTE 336 200 - 950 cells/uL [facility] EOSINOPHIL ABSOLUTE 0(L) 15 - 500 cells/uL [facility] BASOPHILS ABSOLUTE 29 0 - 200 cells/uL [facility] NEUTROPHIL 87.1 % [facility] LYMPHOCYTES 9.1 % [facility] MONOCYTE 3.5 % [facility] EOSINOPHILS 0.0 % [facility] BASOPHILS 0.3 % [facility] Comment: FASTING:UNKNOWN FASTING: UNKNOWN Test Performed at: [email or web address] [address] [place] [address] Cha De La Rosa Blood 11/30/2024 11/30/2024 4:0 0 PM CDT us Juventinook Howe MD HEMATOLOGY ORDERABLES Final Resu lt [facility] [phone] [email or web address] [address] [address] [place] [address] * VITAMIN D 25 HYDROXY (11/30/2024 12:00 AM CDT) Only the most recent of2 resultswithin the time period is included. VITAMIN D, 25 OH, TOTAL 63 30 - 100 ng/mL [email or web address] [place] Comment: Vitamin D Status 25-OH Vitamin D: Deficiency: <20 ng/mL Insufficiency: 20 - 29 ng/mL Optimal: > or = 30 ng/mL For 25-OH Vitamin D testing on patients on D2-supplementation and patients for whom quantitation of D2 and D3 fractions is required, the [facility]) 25-OH VIT D, (D2,D3), LC/MS/MS is recommended: order code 86061 (patients >2yrs). See Note 1 Note 1 For additional information, please refer to http://education.Tivix/faq/OXO977 (This link is being provided for informational/ educational purposes only.) FASTING:UNKNOWN FASTING: UNKNOWN Test Performed at: [email or web address] [address] [place] [address] KaceyVicki De La Rosa MD Blood 11/30/2024 11/30/2024 4:0 0 PM CDT Juventino Howe MD CHEMISTRY ORDERABLES Final [facility] Performing Organization Address City/State/ZIP [facility] Phone Number [facility] [email or web address] [address] * SEDIMENTATION RATE (11/30/2024 12:00 AM CDT) ESR (SEDIMENTATION RATE) 2 < OR = 30 mm/h [email or web address] fermin [place] Comment: No collection date and/or time was provided. If collection time exceeds 24 hours until testing, evaluate result with caution. It is recommended that sample be recollected, with date and time appropriately documented. FASTING:UNKNOWN FASTING: UNKNOWN Test Performed at: [email or web address] [address] [address] [place] [address] Cha De La Rosa Blood 11/30/2024 11/30/2024 4:0 0 PM CDT Juventino Howe MD HEMATOLOGY ORDERABLES Final [facility] [phone] [facility] [employer] [facility] [address] [address] [place] [address] * RHEUMATOID FACTOR (11/30/2024 12:00 AM CDT) RHEUMATOID FACTOR <10 <14 IU/mL [email or web address] Comment: FASTING:UNKNOWN FASTING: UNKNOWN Test Performed at: [email or web address] [address] Cha De La Rosa MD Blood 11/30/2024 11/30/2024 4:0 0 PM CDT Juventino Howe MD CHEMISTRY ORDERABLES Final Resul t [facility] [phone] [email or web address] [address] * COLTON SCREEN W/REFLEX (11/30/2024 12:00 AM CDT) COLTON SCREEN NEGATIVE NEGATIVE [email or web address] Comment: COLTON IFA is a first line screen for detecting the presence of up to approximately 150 autoantibodies in various autoimmune diseases. A negative COLTON IFA result suggests an COLTON-associated autoimmune disease is not present at this time, and does not reflex further. If there is high clinical suspicion for Sjogren's syndrome, testing for anti-SS-A/Ro antibody should be considered. Anti-Alisa-1 antibody should be considered for clinically suspected inflammatory myopathies. AC-0: Negative International Consensus on COLTON Patterns (https://doi.org/10.1515/jozb-3676-2690) For additional information, please refer to http://education.Samanta Sh[employer].ET Water/faq/ZFG421 (This link is being provided for informational/ educational purposes only.) FASTING:UNKNOWN FASTING: UNKNOWN Test Performed at: [facility] [place] [address] Cha De La Rosa MD Blood 11/30/2024 11/30/2024 4:0 0 PM CDT Juventino Howe MD CHEMISTRY ORDERABLES Final Resul t [facility] [phone] [email or web address] [place] [address] * TSH (11/30/2024 12:00 AM CDT) TSH 0.46 0.40 - 4.50 mIU/L [facility] Comment: FASTING:UNKNOWN FASTING: UNKNOWN Test Performed at: [place] [address] [place] [address] [facility] Blood 11/30/2024 11/30/2024 4:0 0 PM CDT Juventino Howe MD CHEMISTRY ORDERABLES Final Resul t [facility] [phone] [place] [address] [place] [address] * T4 FREE (11/30/2024 12:00 AM CDT) Pathologist [facility] T4 FREE 1.4 0.8 - 1.8 ng/dL [facility] Comment: Test Performed at: [place] [address] [address] [place] [address] [facility] Blood 11/30/2024 11/30/2024 4:0 0 PM CDT Juventino Howe MD CHEMISTRY ORDERABLES Final Resul t [facility] [phone] [place] [address] [address] [place] [phone] * CK (11/30/2024 12:00 AM CDT) CK 67 20 - 243 U/L [facility] Comment: FASTING:UNKNOWN FASTING: UNKNOWN Test Performed at: [place] [address] [address] [place] [address] [facility] Blood 11/30/2024 11/30/2024 4:0 0 PM CDT Juventino Howe MD CHEMISTRY ORDERABLES Final Resul t [facility] [phone] [facility] [address] [address] [place] [address] * (ABNORMAL) COMPREHENSIVE METABOLIC PANEL (11/30/2024 12:00 AM CDT) Only the most recent of2 resultswithin the time period is included. GLUCOSE 125(H) 65 - 99 mg/dL [email or web address] Comment: Fasting reference interval For someone without known diabetes, a glucose value between 100 and 125 mg/dL is consistent with prediabetes and should be confirmed with a follow-up test. BUN 13 7 - 25 mg/dL [email or web address] CREATININE 0.90 0.50 - 1.05 mg/dL [email or web address] [place] GFR 71 > OR = 60 mL/min/1. 73m2 [facility] [place] BUN/CREAT RATIO SEE NOTE: 6 (calc) [email or web address] [place] Comment: Not Reported: BUN and Creatinine are within reference range. SODIUM 138 135 - 146 mmol/L [facility] [place] POTASSIUM 4.1 3.5 - 5.3 mmol/L [facility] [place] CHLORIDE 102 98 - 110 mmol/L [facility] CO2 27 20 - 32 mmol/L [email or web address] [place] CALCIUM 10.2 8.6 - 10.4 mg/dL [facility] [place] TOTAL PROTEIN 6.9 6.1 - 8.1 g/dL [email or web address] [place] ALBUMIN 4.8 3.6 - 5.1 g/dL [email or web address] [place] GLOBULIN 2.1 1.9 - 3.7 g/dL (calc) [email or web address] [place] ALBUMIN/GLOBULIN RATIO 2.3 1.0 - 2.5 (calc) [facility] [place] BILIRUBIN TOTAL 0.5 0.2 - 1.2 mg/dL [email or web address] [place] ALKALINE PHOSPHATASE 57 37 - 153 U/L [email or web address] [place] AST 16 10 - 35 U/L [email or web address] [place] ALT 15 6 - 29 U/L [email or web address] Comment: Test Performed at: [email or web address] [address] [address] [place] [phone] [facility] Vo Blood 11/30/2024 11/30/2024 4:0 0 PM CDT Juventino Howe MD CHEMISTRY ORDERABLES Final Resul t [facility] [phone] [email or web address] [address] [place] [address] * MAMMO 3D LESIA SCREEN BILAT W OR WO CAD (10/31/2024 4:12 PM CDT) Anatomical Region Laterality Modality Breast Bilateral Mammography 10/31/2024 4:13 PM CDT Impressions 10/31/2024 4:32 PM CDT IMPRESSION: No suspicious findings to suggest malignancy in either breast. Annual mammography is recommended. OVERALL FINAL ASSESSMENT: BI-RADS CATEGORY 1: Negative. DICTATION LOCATION: [facility] Narrative 10/31/2024 4:32 PM CDT BILATERAL SCREENING DIGITAL MAMMOGRAM WITH 3D TOMOSYNTHESIS AND CAD DATE: 10/31/2024 4:12 PM HISTORY: Routine screening. TECHNIQUE: Full-field digital craniocaudal and mediolateral oblique projections of both breasts were obtained. Low-dose full-field digital breast tomosynthesis examination was performed with 2D and 3D acquisitions. Examination is read in conjunction with computer aided detection. COMPARISON: 10/21/2023 and older BREAST COMPOSITION: There are scattered areas of fibroglandular density. FINDINGS: No suspicious mass, suspicious microcalcifications, or architectural distortion is identified in either breast. Computer aided detection was used in the interpretation of this examination. Shea Gross NP MAMMO ORDERABLES Final Result * CT HEAD W WO CONTRAST (09/08/2024 4:12 PM CDT) Anatomical Region Laterality Modality Head Computed Tomogra phy 09/08/2024 4:13 PM CDT Impressions 09/09/2024 6:47 AM CDT IMPRESSION: No acute intracranial abnormality. Narrative 09/09/2024 6:47 AM CDT EXAM: CT HEAD W WO CONTRAST STUDY DATE: 09/08/2024 4:12 PM CLINICAL INDICATION: Nonintractable headache, unspecified chronicity pattern, unspecified headache type COMPARISON: CT brain dated 09/08/2024 CONTRAST: IOPAMIDOL 61 % INTRAVENOUS SOLUTION (SINGLE USE VIAL) Given:100 mL PROCEDURE: Contiguous axial CT images of the brain are obtained prior to and after administration of intravenous contrast. Radiation dose reduction technique was utilized. FINDINGS: The ventricles and subarachnoid spaces are normal in size, position and configuration for patient's age. No evidence of obstructive hydrocephalus. There is prominent subcutaneous low space in the bilateral frontal regions, unchanged since the prior study. No acute intracranial hemorrhage or abnormal extra-axial fluid collections.No evidence of acute cortical infarction. There is mild generalized cerebral parenchymal volume loss. Postcontrast images demonstrate no abnormal enhancement in the brain. No acute osseous abnormalities. The paranasal sinuses and mastoids are clear. Procedure Note Jovita Wheatley MD - 09/09/2024 EXAM: CT HEAD W WO CONTRAST STUDY DATE: 09/08/2024 4:12 PM CLINICAL INDICATION: Nonintractable headache, unspecified chronicity pattern, unspecified headache type COMPARISON: CT brain dated 09/08/2024 CONTRAST: IOPAMIDOL 61 % INTRAVENOUS SOLUTION (SINGLE USE VIAL) Given:100 mL PROCEDURE: Contiguous axial CT images of the brain are obtained prior to and after administration of intravenous contrast. Radiation dose reduction technique was utilized. FINDINGS: The ventricles and subarachnoid spaces are normal in size, position and configuration for patient's age. No evidence of obstructive hydrocephalus. There is prominent subcutaneous low space in the bilateral frontal regions, unchanged since the prior study. No acute intracranial hemorrhage or abnormal extra-axial fluid collections.No evidence of acute cortical infarction. There is mild generalized cerebral parenchymal volume loss. Postcontrast images demonstrate no abnormal enhancement in the brain. No acute osseous abnormalities. The paranasal sinuses and mastoids are clear. IMPRESSION: No acute intracranial abnormality. Juventino Howe MD CT ORDERABLES Final Result * CT CERVICAL SPINE WO CONTRAST (09/08/2024 4:09 PM CDT) Anatomical Region Laterality Modality Spine Computed Tomogra phy 09/08/2024 3:41 PM CDT Impressions 09/09/2024 6:55 AM CDT IMPRESSION: Multilevel degenerative changes of the cervical spine with multilevel neuroforaminal narrowing as described above. Anterior cervical fusion from C5 to C7. Bilateral palatine tonsilloliths. Right thyroid nodule. Consider evaluation with a thyroid ultrasound. Narrative 09/09/2024 6:55 AM CDT EXAM: CT CERVICAL SPINE WO CONTRAST STUDY DATE: 09/08/2024 4:09 PM CLINICAL INDICATION: Neck pain CONTRAST: None COMPARISON: Cervical spine radiographs dated 02/22/2024 PROCEDURE: Contiguous axial CT images of the cervical spine are obtained without intravenous contrast. Coronal and sagittal reformatted images were processed and reviewed. Radiation dose reduction technique was utilized. FINDINGS: The cervical vertebral bodies demonstrate satisfactory height. There is anterior cervical spinal fusion from C5 to C7 with plate and screws. No hardware complications. There are intervertebral body disc spaces at C5-C6 and C6-C7. There is 1 mm anterolisthesis of C4 on C5 and 2 mm anterolisthesis of C7 on T1. There is osseous fusion of C4 and C5 facets. No acute fracture. There are multilevel degenerative changes of the cervical spine with multilevel facet and uncovertebral joint hypertrophic changes and mild disc space narrowing at C4-C5 and C7-T1. There are moderate arthritic changes of the atlantoaxial joint. At C2-C3, there is minimal posterior disc bulge. There is no significant spinal canal stenosis. There is no significant neural foraminal narrowing. At C3-C4, there is minimal posterior disc osteophyte complex. There are mild bilateral facet changes. There is no significant spinal canal stenosis. There is mild left neural foraminal narrowing. Is no significant right neural foraminal narrowing. At C4-C5, there is no significant spinal canal stenosis. There are moderate bilateral facet hypertrophic changes. There are bilateral uncovertebral joint hypertrophic changes. There is moderate left and mild right neural foraminal narrowing. At C5-C6, there are posterior osteophytes with no significant spinal canal stenosis. There are uncovertebral joint hypertrophic changes. There is moderate left and mild right neural foraminal narrowing. At C6-C7, there are posterior osteophytes. There is no significant spinal canal stenosis. There are bilateral facet and uncovertebral joint hypertrophic changes. There is moderate left neural foraminal narrowing. Is no significant right neural foraminal narrowing. At C7-T1, there is no significant spinal canal stenosis. There are bilateral facet hypertrophic changes. There is moderate bilateral neural foraminal narrowing. There are multiple subcentimeter bilateral palatine tonsilloliths. There is a 1.1 cm partially rim calcified nodule in the right lobe of the thyroid gland (series 3, image 69). There are emphysematous changes in the lungs. Procedure Note Jovita Wheatley MD - 09/09/2024 EXAM: CT CERVICAL SPINE WO CONTRAST STUDY DATE: 09/08/2024 4:09 PM CLINICAL INDICATION: Neck pain CONTRAST: None COMPARISON: Cervical spine radiographs dated 02/22/2024 PROCEDURE: Contiguous axial CT images of the cervical spine are obtained without intravenous contrast. Coronal and sagittal reformatted images were processed and reviewed. Radiation dose reduction technique was utilized. FINDINGS: The cervical vertebral bodies demonstrate satisfactory height. There is anterior cervical spinal fusion from C5 to C7 with plate and screws. No hardware complications. There are intervertebral body disc spaces at C5-C6 and C6-C7. There is 1 mm anterolisthesis of C4 on C5 and 2 mm anterolisthesis of C7 on T1. There is osseous fusion of C4 and C5 facets. No acute fracture. There are multilevel degenerative changes of the cervical spine with multilevel facet and uncovertebral joint hypertrophic changes and mild disc space narrowing at C4-C5 and C7-T1. There are moderate arthritic changes of the atlantoaxial joint. At C2-C3, there is minimal posterior disc bulge. There is no significant spinal canal stenosis. There is no significant neural foraminal narrowing. At C3-C4, there is minimal posterior disc osteophyte complex. There are mild bilateral facet changes. There is no significant spinal canal stenosis. There is mild left neural foraminal narrowing. Is no significant right neural foraminal narrowing. At C4-C5, there is no significant spinal canal stenosis. There are moderate bilateral facet hypertrophic changes. There are bilateral uncovertebral joint hypertrophic changes. There is moderate left and mild right neural foraminal narrowing. At C5-C6, there are posterior osteophytes with no significant spinal canal stenosis. There are uncovertebral joint hypertrophic changes. There is moderate left and mild right neural foraminal narrowing. At C6-C7, there are posterior osteophytes. There is no significant spinal canal stenosis. There are bilateral facet and uncovertebral joint hypertrophic changes. There is moderate left neural foraminal narrowing. Is no significant right neural foraminal narrowing. At C7-T1, there is no significant spinal canal stenosis. There are bilateral facet hypertrophic changes. There is moderate bilateral neural foraminal narrowing. There are multiple subcentimeter bilateral palatine tonsilloliths. There is a 1.1 cm partially rim calcified nodule in the right lobe of the thyroid gland (series 3, image 69). There are emphysematous changes in the lungs. IMPRESSION: Multilevel degenerative changes of the cervical spine with multilevel neuroforaminal narrowing as described above. Anterior cervical fusion from C5 to C7. Bilateral palatine tonsilloliths. Right thyroid nodule. Consider evaluation with a thyroid ultrasound. us Juventino Howe MD CT ORDERABLES Final Result * (ABNORMAL) LIPID PANEL (09/07/2024 4:03 PM CDT) CHOLESTEROL 346(H) <200 mg/dL [facility] HDL 96 > OR = 50 mg/dL [facility] TRIGLYCERIDE 315(H) <150 mg/dL [facility] Comment: If a non-fasting specimen was collected, consider repeat triglyceride testing on a fasting specimen if clinically indicated. Yves et al. J. of Clin. Lipidol. 2015;9:129-169. LDL CALCULATED 197(H) mg/dL (calc) [facility] Comment: LDL-C levels > or = 190 mg/dL may indicate familial hypercholesterolemia (FH). Clinical assessment and measurement of blood lipid levels should be considered for all first degree relatives of patients with an FH diagnosis. LDL Cholesterol (LDL-C) levels > or = 300 mg/dL may indicate homozygous familial hypercholesterolemia (HoFH). Untreated, these extremely high LDL-C levels can result in premature CV events and mortality. Patients should be identified early and provided appropriate interventions to reduce the cumulative LDL-C burden from . For questions about testing for familial hypercholesterolemia, please call [employer] Client Services at [phone]. Yves Goetz, et al. J National Lipid Association Recommendations for Patient-Centered Management of Dyslipidemia: Part 1 Journal of Clinical Lipidology 2015;9(2), 129-169. Ilan Maldonado et al. (2014). Homozygous familial hypercholesterolaemia: new insights and guidance for clinicians to improve detection and clinical management. Heart Journal, 35(32), 2217-1089. Reference range: <100 Desirable range <100 mg/dL for primary prevention; <70 mg/dL for patients with CHD or diabetic patients with > or = 2 CHD risk factors. LDL-C is now calculated using the Almita calculation, which is a validated novel method providing better accuracy than the Friedewald equation in the estimation of LDL-C. Bao MARTINEZ et al. ERLIN. 2013;310(19): 0242-2456 (http://education.Tivix/faq/ODF509) CHOL/HDL RATIO 3.6 <5.0 (calc) [facility] NON-HDL CHOLESTEROL 250(H) <130 mg/dL (calc) [facility] Comment: Non-HDL level > or = 220 [...] considered a therapeutic option. Test Performed at: [email or web address] [place] [address] [place] [address] Cha De La Rosa Blood 09/07/2024 4:03 PM CDT 09/07/2024 4:04 PM CDT Juventino Howe MD CHEMISTRY ORDERABLES Final Resul t [facility] Organization Address City/State/ZIP Code Phone Number [facility] [phone] [place] [address] [place] [address] * HEMOGLOBIN A1C (05/27/2024 10:31 AM CDT) HEMOGLOBIN A1C 5.4 <5.7 % of total Hgb [email or web address] Comment: For the purpose of screening for the presence of diabetes: <5.7% Consistent with the absence of diabetes 5.7-6.4% Consistent with increased risk for diabetes (prediabetes) > or =6.5% Consistent with diabetes This assay result is consistent with a decreased risk of diabetes. Currently, no consensus exists regarding use of hemoglobin A1c for diagnosis of diabetes in children. According to [place] Diabetes Association (ADA) guidelines, hemoglobin A1c <7.0% represents optimal control in non- diabetic patients. Different metrics may apply to specific patient populations. Standards of Medical Care in Diabetes(ADA). ESTIMATED AVERAGE GLUCOSE (MG/DL) 108 mg/dL [email or web address] ESTIMATED AVERAGE GLUCOSE (MMOL/L) 6.0 mmol/L [email or web address] Comment: Test Performed at: [facility] [place] [address] [place] [address] Cha De La Rosa Blood 05/27/2024 10:3 1 AM CDT 05/27/2024 10:32 AM CDT us Juventino Howe MD CHEMISTRY ORDERABLES Final Resul t [facility] [phone] [facility] [place] [facility] [address] [place] [address] * COLONOSCOPY REPORT (04/29/2023 12:59 PM CDT) Narrative Procedure Note Suzette Cody MD - 04/29/2023 12:59 PM CDT [facility] Endoscopy Patient Name: Duyen Orosco Procedure Date: [...] of Addenda: [address]; [place] [address] Suzette Cody MD GI PROCEDURE ORDERABLES Final Result * CT LUNG SCREENING (LDCT BASELINE OR ANNUAL) (02/01/2023 8:30 AM GRAIN COMBINER) Anatomical Region Laterality Modality Chest Computed Tomogra phy 02/01/2023 9:07 AM GRAIN COMBINER Impressions 02/02/2023 10:42 AM GRAIN COMBINER IMPRESSION: 1. No concerning dominant pulmonary nodules. Lung-RADS Category 1: Negative RECOMMENDATIONS: 1. Recommend annual low-dose CT screening of the chest. Narrative 02/02/2023 10:[address] LUNG SCREENING (LDCT BASELINE OR ANNUAL) 02/01/2023 8:30 AM DICTATION LOCATION: [address] INDICATION: High-risk screening for lung cancer. [...] OR ANNUAL) 02/01/2023 8:30 AM DICTATION LOCATION: [address] INDICATION: High-risk screening for lung cancer. [...] the lumbar spine and hip(s) using a [employer] DEXA scanner for bone mineral density determination [...] Bush DO DICTATION LOCATION: Location 1 - [facility] Procedure Note Hill Bush DO - 12/11/2021 XR DEXA BONE DENSITY AXIAL 1 OR MORE SITES DATE: 12/11/2021 3:43 PM HISTORY: 61 years old Female with post menopausal symptoms. PROCEDURE: Planar images of the lumbar spine and hip(s) using a [employer] DEXA scanner for bone mineral density determination [...] years thereafter Dictated by Dr. Hill Bush, DO DICTATION LOCATION: Location 1 - [facility] Sheldon Canales MD DIAGNOSTIC IMAGING ORDERABL ES Final Result from Last 3 Months or Most Recently Relevant to Health Maintenance Insurance RX YI PLANS (INTERNAL) [facility] RX [employer] Commercial RX [employer] RX Member Subscriber Plan / Payer (Ef fective 2024-Present) Name:Duyen Orosco Relation to Subscriber:Not on file Name:Duyen Orosco Subscriber ID:Not on file Date of :1960 Payer ID:Not on file Type:Not on file Address: [facility] R MEDICARE PART A HOSPITAL ONLY [facility] OPTIONS PPO [id number] Advance Directives For more information, please contact: [phone] Documents on File Type Date Recorded Patient Fiscal Analyst Expl anation Advance Directive POA 12/21/2023 1:56 PM * Full Code (Latest Code Status on [...] 8:30 PM 08/04/2023 4:05 PM Care Teams Auto Parts Handler Relationship Specialty Start Date End Date Juventino Howe MD [address] [place] [address] PCP - General Internal Medicine 11/04/11
--- OUTSIDE RECORDS SUMMARY | 2024-12-07 18:05 | XMS_ITS | Encounter Summary ---
Author Organization [facility] Address [address] [place] [address] Care Team Providers Care Scroll Machine Operator Name Role Phone Juventino Howe MD Primary Care Provider [phone] Encounter Details Date Type Department Care Team (Late st Contact Info) Description 08/13/2005 Outpatient Historical [facility] Internal Medicine [facility] [address] [place] [address] Randal Clark MD [address] [place] [address] Social History Tobacco Use Types Packs/Day Years Used Date Smoking Tobacco: Never Assessed Comments Unknown Sex and Gender Information Value Date Recorded Sex Assigned at Not on file Legal Sex Female 3:38 AM [employer]INTER [employer] Gender Identity Not on file Sexual Orientation [...] Description 12/12/2024 4:30 PM CDT Appointment [facility] Therapy Services [place] [address] [facility] [address] [place] [address] Cata Terry, [place] [address] [place] [address] Maegan Duncan, Physical Therapist 12/19/2024 9:30 AM PAINTER SPRING Appointment [facility] [address] [facility] [address] [place] [address] Anselmo Durham MD [address] [facility] [address] [place] [address] 12/19/2024 10:40 AM PAINTER SPRING Office Visit [facility] EAR, NOSE AND THROAT [facility] [address] [facility] [address] [place] [address] Anselmo Durham MD [address] [facility] [address] [place] [address] 12/20/2024 2:00 PM [employer]INTER [employer] Office Visit [facility] Internal Medicine Medical [place] [address] [address] Juventino Howe MD [address] [facility] [place] [address] 12/28/2024 2:45 PM PAINTER SPRING Office Visit [facility] Endocrinology [address] [place] [address] Sheldon Canales MD [address] [facility] [address] [place] [address] 01/04/2025 2:00 PM PAINTER [employer]ING Office Visit [facility] Neurology [address] [facility] [address] [place] [address] Juventino Howe MD [address] [place] [address] Bobbi Davalos MD [address] [place] [address] 02/26/2025 3:10 PM [employer]INTER [employer]ING Office Visit [facility] Gastroenterology [address] [place] [address] Suzette Cody MD [address] [facility] [address] [place] [address] 03/28/2025 2:30 PM PAINTER [employer]ING Office Visit [facility] Colon and Rectal Surgery [address] [place] [address] [place] [address] [place] [address] 10/30/2025 3:00 PM CDT Office Visit [facility] Pulmonology [facility] [address] [place] [address] Everett Cam MD [address] [place] [address] documented as of this encounter Visit Diagnoses Not on filedocumented in this encounter Additional Health Concerns Infection Onset Date Last Indicated Resolved Time R/O Respiratory 01/11/2023 01/11/2023 01/11/2023 7 :48 PM PAINTER SPRING R/O Respiratory 02/19/2024 02/19/2024 02/19/2024 1 1:21 AM PAINTER [employer]ING Influenza 02/19/2024 02/19/2024 02/26/2024 1:16 AM PAINTER [employer]ING R/O Respiratory 03/13/2024 03/13/2024 03/13/2024 4 :20 PM PAINTER [employer]ING Human Metapneumovirus 03/13/2024 03/13/20242024 1:16 AM PAINTER SPRING R/O C. diff 03/13/2024 03/13/2024 03/14/2024 8:0 0 PM PAINTER [employer]ING R/O C. diff 03/14/2024 03/14/2024 03/15/2024 6:17 PM PAINTER [employer]ING documented as of this encounter Care Teams Scroll Machine Operator Relationship Specialty Start Date End Date Juventino Howe MD [address] [facility] [address] [place] [address] PCP - General Internal Medicine 11/04/11 documented as of this encounter
--- OUTSIDE RECORDS SUMMARY | 2024-12-07 18:05 | XMS_ITS | Encounter Summary ---
Author Organization [employer] Address [address] [place] [address] Care Team Providers Care Rehabilitation Medicine Physician Name Role Phone Juventino Howe MD Primary Care Provider [phone] Encounter Details Date Type Department Care Team (Latest Contact Info) Description 07/24/2008 Inpatient Historical HIS PATIENT IN A BED Romie Chhaya L, [address] [place] [address] Edwin Chavez MD [address] [place] [address] Abdominal Pain, Unspecified Site Social History Tobacco Use Types Packs/Day Years Used Date Smoking Tobacco: Never Alcohol Use Standard Drinks/Week Comments No 0 (1 standard drink = 0.6 oz pur e alcohol) Comments No Sex and Gender Information Value Date Recorded Sex Assigned at Not on file Legal Sex Female 3:38 AM 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 PRINTING 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 SET UP 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 Gender Identity Not on file Sexual Orientation Not on file documented as of this encounter Plan of Treatment Upcoming Encounters Date Type Department Care Team (Late st Contact Info) Description 12/12/2024 4:30 PM CDT Appointment [facility] [place] [facility] [address] [place] [address] Cata Terry, [place] [address] [place] [address] Maegan Duncan, Physical Therapist 12/19/2024 9:30 AM DESIGN PRINTING MACHINE SET UP OPERATOR Appointment [facility] S Elvis Leonardo [address] [place] [phone] Anselmo Durham MD [address] [facility] [address] [place] [address] 12/19/2024 10:40 AM DESIGN PRINTING MACHINE SET UP OPERATOR Office Visit [facility] EAR, NOSE AND TH[facility]AT [facility] [address] [facility] [address] [place] [address] Anselmo Durham MD [address] [facility] [address] [place] [address] 12/20/2024 2:00 PM DESIGN PRINTING MACHINE SET UP OPERATOR Office Visit [facility] ([facility] Internal Medicine Medical [place] [address] [facility] [address] [address] Juventino Howe MD [address] [facility] [address] [place] [address] 12/28/2024 2:45 PM DESIGN PRINTING MACHINE SET UP OPERATOR Office Visit [facility] ([facility]) Endocrinology [address] [facility] [address] [place] [address] Sheldon Canales MD [address] [facility] [address] [place] [address] 01/04/2025 2:00 PM DESIGN PRINTING MACHINE SET UP OPERATOR Office Visit [facility] Neurology [address] [facility] [address] [place] [address] Juventino Howe MD [address] [facility] [address] [place] [address] Bobbi Davalos MD [address] [facility] [address] [place] [address] 02/26/2025 3:10 PM DESIGN PRINTING MACHINE SET UP OPERATOR Office Visit [facility] Gastroenterology [address] [place] [phone] Suzette Cody MD [address] [facility] [address] [place] [address] 03/28/2025 2:30 PM DESIGN PRINTING MACHINE SET UP OPERATOR Office Visit [facility]) Colon and Rectal Surgery [address] [place] [address] [place] [address] [place] [address] 10/30/2025 3:00 PM CDT Office Visit [facility] Pulmonology [facility] [address] [facility] [address] [place] [address] Everett Cam MD [address] [facility] [address] [place] [address] documented as of this encounter [...] Results * COLTON (07/27/2008 5:10 AM CDT) COLTON SCREEN NEGATIVE NEGATIVE [facility] Comment: A NEGATIVE ANACHOICE(TM) INDICATES THE ABSENCE OF DETECTABLE ANTIBODIES TO COMPONENT ANALYTES CONSISTING OF DSDNA, CHROMATIN, WELDING 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 ARC, SM/WELDING 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 ARC, SM, SSA, SSB, NADEEN-1, CENTROMERE B, SCL-70 AND RIBOSOMAL P. A NEGATIVE ANACHOICE(TM) SHOULD BE INTERPRETED IN THE CONTEXT OF THE CLINICAL AND LABORATORY FINDINGS, AND DOES NOT RULE OUT AUTOIMMUNE DISEASE CHARACTERIZED BY OTHER AUTOANTIBODY SPECIFICITIES INCLUDING AUTOIMMUNE HEPATITIS AND PRIMARY BILIARY CIRRHOSIS. Lab test performed by: [employer] [facility] [employer] [address] [facility] [address] CATALINO ALTAMIRANO MD 07/27/2008 5:10 AM CDT 07/27/2008 5:46 AM CDT us Lynne Escobar MD CHEMISTRY ORDERABLES Final Resu lt INTERFACE SYSTEM Refer to clinic/hospital department [facility] CLIA# [id number] [address] [place] [address] * HU ANTIBODY (07/27/2008 5:10 AM CDT) HU AB NEGATIVE [facility] Comment: Reference Range: NEGATIVE Neuronal nuclear [...] its performance characteristics have been determined by [employer] [facility]. It has not been cleared or approved by the U.S. Food and Drug Administration. The FDA has determined that such clearance or approval is not necessary. Performance characteristics refer to the analytical performance of the test. Lab test performed by: [employer] [facility] [address] [place] [address] VICKY CARBAJAL M.D.,PH.D. HU ANTIBODY WB Not Performed [facility] Comment: * SUPPLEMENTAL TESTING * * NOT PERFORMED. * Lab test performed by: [employer] [facility] [address] [place] [address] VICKY CARBAJAL M.D.,PH.D. HU AB TITER Not Performed Titer [facility] Comment: Reference Range: LESS THAN 1:40 TNP-Screening test negative. Titer not performed. Lab test performed by: [employer] [facility] [address] [place] [address] VICKY CARBAJAL M.D.,PH.D. 07/27/2008 5:10 AM CDT 07/27/2008 5:46 AM CDT Lynne Escobar MD CHEMISTRY ORDERABLES Edited Performing Organization Address [facility] Phone Number INTERFACE SYSTEM Refer to clinic/hospital department [facility] CLIA# [id number] [address] [place] [address] * SCLERODERMA ANTIBODY SCL 70 (07/27/2008 5:10 AM CDT) Pathologist [facility] SCLERODERMA AB SCL 70 <1.0 NEG <1.0 NEG Index [facility] Comment: Lab test performed by: [employer] [facility] [employer] [address] [place] [address] CATALINO ALTAMIRANO MD 07/27/2008 5:10 AM CDT 07/27/2008 5:46 AM CDT Lynne Escobar MD CHEMISTRY ORDERABLES Final Resu lt Performing Organization Address [facility] de Phone Number INTERFACE SYSTEM Refer to clinic/hospital department [facility] CLIA# [id number] [address] [place] [address] * (ABNORMAL) PROTEIN ELECTROPHORESIS, SERUM (07/27/2008 5:10 AM CDT) Pathologist [facility] PROTEIN TOTAL, SPE 5.6(L) 6.0 - 8.3 g/dL [facility] ALPHA 1 GLOBULIN SPE 0.12 0.12 - 0.30 g/dL [facility] ELECTROPHORESIS INTERP BY: Estevan Gore MD [facility] GAMMA GLOBULIN 0.50(L) 0.60 - 1.33 g/dL [facility] ALPHA 2 GLOBULIN SPE 0.66 0.50 - 1.01 g/dL [facility] ALBUMIN SPE 3.61 3.60 - 5.00 g/dL [facility] SPE INTERP Recommend urine electrophoresis to rule out Bence Arreaga protein. Hypogammaglobuline fabi is present; may be seen in immune deficient,chemothe rapy,or B-cell neoplasm. No monoclonal gammopathy identified by immunofixation. [facility] BETA GLOBULIN 0.72 0.60 - 1.05 g/dL [facility] 07/27/2008 5:10 AM CDT 07/27/2008 5:46 AM CDT Lynne Escobar MD CHEMISTRY ORDERABLES Edited Performing Organization Address City/[facility] Co de Phone Number INTERFACE SYSTEM Refer to clinic/hospital department [facility] CLIA# [id number] [address] [facility] [place] [address] * TSH REFLEXIVE (07/27/2008 5:10 AM CDT) TSH 1.25 0.27 - 4.20 uU/mL [facility] 07/27/2008 5:10 AM CDT 07/27/2008 5:46 AM CDT us Lynne Escobar MD CHEMISTRY ORDERABLES Final Resu lt Performing Organization Address City/[facility]/ZIP Co de Phone Number INTERFACE SYSTEM Refer to clinic/hospital department [facility] CLIA# [id number] [address] [place] [address] * LIPASE (07/27/2008 5:10 AM CDT) LIPASE 38 13 - 60 U/L [facility] 07/27/2008 5:10 AM CDT 07/27/2008 5:46 AM CDT us Lynne Escobar MD CHEMISTRY ORDERABLES Final Resu lt Performing Organization Address City/[facility] de Phone Number INTERFACE SYSTEM Refer to clinic/hospital department [facility] CLIA# [id number] [address] [place] [address] * PHOSPHORUS (07/27/2008 5:10 AM CDT) PHOSPHORUS 4.1 2.5 - 4.5 mg/dL [facility] 07/27/2008 5:10 AM CDT 07/27/2008 5:46 AM CDT us Lynne Escobar MD CHEMISTRY ORDERABLES Final Resu lt Performing Organization Address [facility] Phone Number INTERFACE SYSTEM Refer to clinic/hospital department [facility] CLIA# [id number] [address] [place] [address] * MAGNESIUM LEVEL (07/27/2008 5:10 AM CDT) MAGNESIUM 1.9 1.5 - 2.5 mg/dL [facility] 07/27/2008 5:10 AM CDT 07/27/2008 5:46 AM CDT us Lynne Escobar MD CHEMISTRY ORDERABLES Final Resu lt Performing Organization Address City/[facility] de Phone Number INTERFACE SYSTEM Refer to clinic/hospital department [facility] CLIA# [id number] [address] [place] [address] * BASIC METABOLIC PANEL (07/27/2008 5:10 AM CDT) CHLORIDE 108 96 - 108 mmol/L [facility] GLUCOSE 77 65 - 99 mg/dL [facility] SODIUM 141 135 - 145 mmol/L [facility] CALCIUM 8.9 8.6 - 10.2 mg/dL [facility] CO2 23 22 - 30 mmol/L [facility] CREATININE 0.75 0.51 - 0.95 mg/dL [facility] POTASSIUM 3.5 3.5 - 4.9 mmol/L [facility] BUN 6 6 - 20 mg/dL [facility] GFR, >60 >=60 mL/min/1.7 sq meter [facility] GFR >60 >=60 mL/min/1.7 sq meter [facility] Comment: Modification of Diet in Renal Disease (MDRD) study formula. Estimated GFR rate interpretative information for both Americans and non- Americans is available on the [facility] Intranet at: [email or web address] Select: Lab Policies and Procedures Select: Reference Ranges - GFR 07/27/2008 5:10 AM CDT 07/27/2008 5:46 AM CDT us Lynne Escobar MD CHEMISTRY ORDERABLES Edited INTERFACE SYSTEM Refer to clinic/hospital department [facility] CLIA# [id number] [address] [place] [address] * CBC WITH DIFFERENTIAL (07/27/2008 5:10 AM CDT) HEMATOCRIT 39.1 35.5 - 44.0 % [facility] RDW-STDEV 44.4 37.1 - 48.7 fL [facility] RBC 4.13 3.90 - 4.90 M/uL [facility] MCHC 33.8 31.5 - 35.5 % [facility] MCV 94.7 82.0 - 99.0 fL [facility] PLATELETS 229 140 - 350 K/uL [facility] HEMOGLOBIN 13.2 11.8 - 14.8 g/dL [facility] RDW 12.9 11.5 - 14.5 % [facility] WBC 7.5 4.0 - 9.8 K/uL [facility] MCH 32.0 27.2 - 32.6 pg [facility] MPV 11.3 9.3 - 12.4 fL [facility] BASOPHILS 1 0 - 2 % [facility] BASOPHILS ABSOLUTE 0.04 0.00 - 0.20 K/uL [facility] MONOCYTES 6 3 - 13 % [facility] MONOCYTE ABSOLUTE 0.42 0.10 - 1.30 K/uL [facility] NEUTROPHILS 47 45 - 70 % [facility] NEUTROPHIL ABSOLUTE 3.55 1.90 - 7.00 K/uL [facility] EOSINOPHILS 2 0 - 7 % [facility] EOSINOPHIL ABSOLUTE 0.17 0.00 - 0.70 K/uL [facility] LYMPHOCYTES 45 16 - 45 % [facility] LYMPHOCYTE ABSOLUTE 3.36 0.70 - 4.50 K/uL [facility] 07/27/2008 5:10 AM CDT 07/27/2008 5:46 AM CDT us Lynne Escobar MD HEMATOLOGY ORDERABLES Edited INTERFACE SYSTEM Refer to clinic/hospital department [facility] CLIA# [id number] [address] [place] [address] * NM GASTRIC EMPTYING (07/26/2008 9:24 AM CDT) Anatomical Region Laterality Modality Abdomen Other 07/26/2008 9:24 AM CDT Narrative 07/26/2008 3:37 PM CDT [facility] [address] [place], [place] [address] Admit Date: 07/24/2008 DUYEN OROSCO Sex: F Admit Prov: CECE CHHAYA Date: 1960 Primary Care Prov: PCP, NONE CMRN: [id number] Room: [place] [address] SSN: [id number] IMAGING SERVICES Ordering Prov: N/A Accession Number: [id number] Interpretation Gastric emptying, solid meal History: 48-year-old [...] Procedure Note Adarsh Sanders MD - 07/26/2008 [facility] [address] [place], [place] [address] Admit Date: 07/24/2008 DUYEN OROSCO Sex: F Admit Prov: CHHAYA ZHAO Date: 1960 Primary Care Prov: PCP, NONE CMRN: [id number] Room: [place] [address] SSN: [id number] IMAGING SERVICES Ordering Prov: N/A Interpretation Gastric [...] AM CDT Narrative 07/26/2008 11:27 AM CDT [address] [address] Admit Date: 07/24/2008 DUYEN OROSCO E Sex: F Admit Prov: CHHAYA ZHAO Date: 1960 Primary Care Prov: PCP, NONE CMRN: [id number] Room: [place] [address] SSN: [id number] IMAGING SERVICES Ordering Prov: N/A Accession Number: [id number] Interpretation WATER-SOLUBLE CONTRAST ENEMA EXAMINATION OF THE COLON, 07/26/2008 CLINICAL HISTORY: Abdominal pain. A preliminary abdominal interior design professional radiograph is not remarkable except for surgical [...] Procedure Note Mayank Becker MD - 07/26/2008 [facility] [address] [place], [place] [address] Admit Date: 07/24/2008 DUYEN OROSCO Sex: F Admit Prov: CHHAYA ZHAO Date: 1960 Primary Care Prov: PCP, NONE CMRN: [id number] Room: [place] [address] SSN: [id number] IMAGING SERVICES Ordering Prov: N/A Interpretation WATER-SOLUBLE CONTRAST ENEMA EXAMINATION OF THE COLON, 07/26/2008 CLINICAL HISTORY: Abdominal pain. A preliminary abdominal interior design professional radiograph is not remarkable exceptfor surgical clips [...] MAYANK BECKER 07/26/2008 09:34 Electronically signed by: SYLVIE MAYANK Sheth 07/26/2008 11:26 Transcribed: 07/26/2008 11:15 DKT Chhaya Grubbs DO DIAGNOSTIC IMAGING ORDERABLES Final Result * MRI ABDOMEN PELVIS W WO CONT (07/25/2008 7:39 PM CDT) Anatomical Region Laterality Modality Abdomen Other 07/25/2008 7:39 PM CDT Narrative 07/26/2008 8:20 AM CDT [address] [address] Admit Date: 07/24/2008 DUYEN OROSCO Sex: F Admit Prov: CHHAYA ZHAO Date: 1960 Primary Care Prov: PCP, NONE CMRN: [id number] Room: [place] [address] SSN: [id number] IMAGING SERVICES Ordering Prov: N/A Accession Number: [id number] Interpretation MR abdomen and pelvis with and [...] Procedure Note Leonora Patel MD - 07/26/2008 [place] [address] [place], [place] [address] Admit Date: 07/24/2008 DUYEN OROSCO Sex: F Admit Prov: CHHAYA ZHAO Date: 1960 Primary Care Prov: PCP, NONE CMRN: [id number] Room: [place] [address] SSN: [id number] IMAGING SERVICES Ordering Prov: N/A Interpretation MR [...] PM CDT) OCCULT BLOOD, STOOL Negative Negative [facility] 07/25/2008 4:05 PM CDT 07/25/2008 4:07 PM CDT us Kaci Tim MD BODY FLUIDS AND STOO LS Final Result INTERFACE SYSTEM Refer to clinic/hospital department [facility] CLIA# [id number] [address] [place] [address] * PATHOLOGY (07/25/2008 12:23 PM CDT) FINAL REPORT [facility] [address] [place], [place] [address] Patient: DUYEN OROSCO : 1960 Procedure Date: 07/25/2008 Accession Date: 07/25/2008 Case No: [id number] Ordering Dr: LYNNE ESCOBAR Case types AW, BW, FW, NW and SH are performed by [facility], [place], [place] SURGICAL PATHOLOGY & NON-GYNECOLOGIC CYTOPATHOLOGY REPORT [...] x 0.2 x 0.1 cm piece of hernanedz tissue. It is submitted in block B1. [facility] 07.25.2008 03:38 pm Microscopic: The slides are labeled [id number] and Duyen Orosco. The small bowel biopsy [...] 07/26/08 04:36 pm INTERFACE SYSTEM ADDENDUM REPORT [facility] [address] [place], [place] [address] Patient: DUYEN OROSCO : 1960 Procedure Date: 07/25/2008 Accession Date: 07/25/2008 Case No: [id number] Ordering Dr: LYNNE ESCOBAR Case type SW is performed by [facility], [place], [place]; all other case types are performed by [facility], [place], [place] ADDENDUM REPORT NOTE: At the request of Dr. Escobar, special stains for amyloid are performed. There is no evidence of amyloid in either biopsy on Congo Red or trichrome stains. BENITEZ/YESSICA 08.28.08 ELECTRONIC SIGNATURE FOR HEIDY BRAGA M.D. - 08/28/08 03:48 pm INTERFACE SYSTEM 07/25/2008 12:2 3 PM CDT us Lynne Escobar MD PATHOLOGY/CYTOLOGY ORDERABLES E dited Performing Organization Address [facility] Co de Phone Number INTERFACE SYSTEM Refer to clinic/hospital department * VITAMIN D 25 HYDROXY (07/25/2008 4:36 AM CDT) VITAMIN D, 25 OH, D3 5 ng/mL [facility] Comment: 25-OHD3 indicates both endogenous production and supplementation. 25-OHD2 is an indicator of exogenous sources such as diet or supplementation. Therapy is based on measurement of Total 25-OHD, with levels <20 ng/mL indicative of Vitamin D deficiency while levels between 20 ng/mL and 30 ng/mL suggest insufficiency. Optimal levels are >30 ng/mL. Lab test performed by: [facility] [address] [place] [id number] [address] GAY UGALDE VITAMIN D, 25 OH, TOTAL 39 20 - 100 ng/mL [facility] VITAMIN D, 25 OH, D2 34 ng/mL [facility] 07/25/2008 4:36 AM CDT 07/25/2008 5:27 AM CDT us Lynne Escobar MD CHEMISTRY ORDERABLES Final Resu lt Performing Organization Address [facility] Phone Number INTERFACE SYSTEM Refer to clinic/hospital department [facility] CLIA# [id number] [address] [place] [address] * (ABNORMAL) LIPASE (07/25/2008 4:36 AM CDT) LIPASE 64(H) 13 - 60 U/L [facility] 07/25/2008 4:36 AM CDT 07/25/2008 5:27 AM CDT us Lynne Escobar MD CHEMISTRY ORDERABLES Final Resu lt Performing Organization Address [facility] Phone Number INTERFACE SYSTEM Refer to clinic/hospital department [facility] CLIA# [id number] [address] [place] [address] * AMYLASE (07/25/2008 4:36 AM CDT) AMYLASE 35 28 - 100 U/L [facility] 07/25/2008 4:36 AM CDT 07/25/2008 5:27 AM CDT us Lynne Escobar MD CHEMISTRY ORDERABLES Final Resu lt Performing Organization Address [facility] Phone Number INTERFACE SYSTEM Refer to clinic/hospital department [facility] CLIA# [id number] [address] [place] [address] * C-REACTIVE PROTEIN (07/25/2008 4:36 AM CDT) CRP <0.2 0.0 - 0.8 mg/dL [facility] 07/25/2008 4:36 AM CDT 07/25/2008 5:27 AM CDT us Lynne Escobar MD CHEMISTRY ORDERABLES Final Resu lt INTERFACE SYSTEM Refer to clinic/hospital department [facility] CLIA# [id number] [address] [place] [address] * URINALYSIS WITH MICROSCOPIC (07/24/2008 12:23 PM CDT) COLOR UA Colorless [facility] NITRITE UA Negative Negative [facility] UROBILINOGEN UA <1 <=1 mg/dL [facility] EPITHELIAL CELLS, URINE 0-2 /HPF [facility] PH UA 5.0 5.0 - 8.0 [facility] KETONES UA Negative Negative [facility] WBC UA None Seen 0 - 5 /HPF [facility] CLARITY UA Clear Clear [facility] PROTEIN UA Negative Negative [facility] BILIRUBIN UA Negative Negative [facility] LEUKOCYTE ESTERASE UA Negative Negative [facility] RBC UA None Seen 0 - 4 [facility] SPECIFIC GRAVITY UA 1.003 1.001 - 1.035 [facility] Comment:Verified by repeat a nalysis. BLOOD UA Negative Negative [facility] GLUCOSE UA Negative Negative [facility] 07/24/2008 12:2 3 PM CDT 07/24/2008 12:50 PM CDT us Chhaya Godoy Grubbs DO URINE ORDERABLES Final Result Performing Organization Address City/State/[facility] Co de Phone Number INTERFACE SYSTEM Refer to clinic/hospital department [facility] CLIA# [id number] [address] [place] [address] * URINE CULTURE (07/24/2008 12:23 PM CDT) PRELIMINARY REPORT Pending [facility] FINAL REPORT Polymicrobial growth present consistent with urethral claudia and/or colonizing bacteria. [facility] 07/24/2008 12:2 3 PM CDT 07/24/2008 1:07 PM CDT Chhaya Grubbs DO MICROBIOLOGY - GENERAL ORDERA BLES Final Result INTERFACE SYSTEM Refer to clinic/hospital department [facility] CLIA# [id number] [address] [place] [address] * (ABNORMAL) COMPREHENSIVE METABOLIC PANEL (07/24/2008 12:20 PM CDT) ALKALINE PHOSPHATASE 118(H) 35 - 104 U/L [facility] CO2 25 22 - 30 mmol/L [facility] BILIRUBIN TOTAL 0.3 0.2 - 1.0 mg/dL [facility] POTASSIUM 3.7 3.5 - 4.9 mmol/L [facility] TOTAL PROTEIN 6.9 6.3 - 8.6 g/dL [facility] GLUCOSE 86 65 - 99 mg/dL [facility] AST 18 12 - 32 U/L [facility] BUN 6 6 - 20 mg/dL [facility] CALCIUM 9.7 8.6 - 10.2 mg/dL [facility] ALBUMIN 4.4 3.4 - 4.8 g/dL [facility] CHLORIDE 102 96 - 108 mmol/L [facility] CREATININE 0.62 0.51 - 0.95 mg/dL [facility] ALT 20 0 - 31 U/L [facility] SODIUM 139 135 - 145 mmol/L [facility] GFR, >60 >=60 mL/min/1. 7 sq meter [facility] GFR >60 >=60 mL/min/1. 7 sq meter [facility] Comment: Modification of Diet in Renal Disease (MDRD) study formula. Estimated GFR rate interpretative information for both Americans and non- Americans is available on the [facility] Intranet at: [email or web address] Select: Lab Policies and Procedures Select: Reference Ranges - GFR 07/24/2008 12:2 0 PM CDT 07/24/2008 12:28 PM CDT us Chhaya Grubbs DO CHEMISTRY ORDERABLES Edited INTERFACE SYSTEM Refer to clinic/hospital department [facility] CLIA# [id number] [address] [place] [address] * (ABNORMAL) CBC WITH DIFFERENTIAL (07/24/2008 12:20 PM CDT) HEMOGLOBIN 15.3(H) 11.8 - 14.8 g/dL [facility] RDW 13.0 11.5 - 14.5 % [facility] WBC 10.7(H) 4.0 - 9.8 K/uL [facility] MCH 32.7(H) 27.2 - 32.6 pg [facility] MPV 11.0 9.3 - 12.4 fL [facility] HEMATOCRIT 44.4(H) 35.5 - 44.0 % [facility] RDW-STDEV 44.8 37.1 - 48.7 fL [facility] RBC 4.68 3.90 - 4.90 M/uL [facility] MCHC 34.5 31.5 - 35.5 % [facility] MCV 94.9 82.0 - 99.0 fL [facility] PLATELETS 285 140 - 350 K/uL [facility] EOSINOPHILS 1 0 - 7 % [facility] EOSINOPHIL ABSOLUTE 0.12 0.00 - 0.70 K/uL [facility] LYMPHOCYTES 37 16 - 45 % [facility] LYMPHOCYTE ABSOLUTE 3.93 0.70 - 4.50 K/uL [facility] BASOPHILS 0 0 - 2 % [facility] BASOPHILS ABSOLUTE 0.04 0.00 - 0.20 K/uL [facility] MONOCYTES 5 3 - 13 % [facility] MONOCYTE ABSOLUTE 0.55 0.10 - 1.30 K/uL [facility] NEUTROPHILS 56 45 - 70 % [facility] NEUTROPHIL ABSOLUTE 6.02 1.90 - 7.00 K/uL [facility] 07/24/2008 12:2 0 PM CDT 07/24/2008 12:28 PM CDT us Chhaya Grubbs DO HEMATOLOGY ORDERABLES Edited INTERFACE SYSTEM Refer to clinic/hospital department [facility] CLIA# [id number] [address] [place], [place] [address] documented in this encounter Visit Diagnoses Diagnosis Abdominal pain, unspecified site documented in this encounter Additional Health Concerns Infection Onset Date Last Indicated Resolved Time R/O Respiratory 01/11/2023 01/11/2023 01/11/2023 7 :48 PM DESIGN PRINTING MACHINE SET UP OPERATOR R/O Respiratory 02/19/2024 02/19/2024 02/19/2024 1 1:21 AM DESIGN PRINTING MACHINE SET UP OPERATOR Influenza 02/19/2024 02/19/2024 02/26/2024 1:16 AM DESIGN PRINTING MACHINE SET UP OPERATOR R/O Respiratory 03/13/2024 03/13/2024 03/13/2024 4 :20 PM DESIGN PRINTING MACHINE SET UP OPERATOR Human Metapneumovirus 03/13/2024 03/13/20242024 1:16 AM DESIGN PRINTING MACHINE SET UP OPERATOR R/O C. diff 03/13/2024 03/13/2024 03/14/2024 8:00 PM DESIGN PRINTING MACHINE SET UP OPERATOR R/O C. diff 03/14/2024 03/14/2024 03/15/2024 6:17 PM DESIGN PRINTING MACHINE SET UP OPERATOR documented as of this encounter Care Teams Rehabilitation Medicine Physician Relationship Specialty Start Date End Date Juventino Howe MD [address] [facility] [address] [place] [address] PCP - General Internal Medicine 11/04/11 documented as of this encounter
--- OUTSIDE RECORDS SUMMARY | 2024-12-07 18:05 | XMS_ITS | Encounter Summary ---
Author Organization [facility] Address [address] [place] [address] Care Team Providers Care Poultry Farmworker Name Role Phone Juventino Hoew MD Primary Care Provider [phone] Encounter Details Date Type Department Care Team (Late Contact Info) Description 08/14/2008 Outpatient Historical [facility] Lynne Escobar MD [address] [place] [address] Social History Tobacco Use Types Packs/Day Years Used Date Smoking Tobacco: Never Alcohol Use Standard Drinks/Week Comments No 0 (1 standard drink = 0.6 oz pur e alcohol) Comments No Sex and Gender Information Value Date Recorded Sex Assigned at Not on file Legal Sex Female 3:38 AM FOUNDATION MAKER Gender Identity Not on file Sexual Orientation Not on file documented as of this encounter Plan of Treatment Upcoming Encounters Date Type Department Care Team ([facility] Contact Info) Description 12/12/2024 4:30 PM CDT Appointment [facility] Therapy Services [place] [address] [facility] [address] [place] [address] Cata Terry, [place] [address] [place] [address] Maegan Duncan, Physical Therapist 12/19/2024 9:30 AM FOUNDATION MAKER [facility]ment [facility] S [facility] [address] [place] [address] Anselmo Durham MD [address] [facility] [address] [place] [address] 12/19/2024 10:40 AM FOUNDATION MAKER Office Visit [facility] EAR, NOSE AND THROAT [facility] [address] [facility] [address] [place] [address] Anselmo Durham MD [address] [facility] [address] [place] [address] 12/20/2024 2:00 PM FOUNDATION MAKER Office Visit [facility] Internal Medicine Medical [place] [address] [facility] [address] [address] Juventino Howe MD [address] [facility] [address] [place] [address] 12/28/2024 2:45 PM FOUNDATION MAKER Office Visit [facility] Endocrinology [address] [facility] [address] [place] [address] Sheldon Canales MD [address] [facility] [address] [place] [address] 01/04/2025 2:00 PM FOUNDATION MAKER Office Visit [facility] Neurology [address] [facility] [address] [place] [address] Juventino Howe MD [address] [facility] [address] [place] [address] Bobbi Davalos MD [address] [facility] [address] [place] [address] 02/26/2025 3:10 PM FOUNDATION MAKER Office Visit [facility] Gastroenterology [address] [address] [facility] [address] [place] [address] Suzette Cody MD [address] [facility] [address] [place] [address] 03/28/2025 2:30 PM FOUNDATION MAKER Office Visit [facility] Colon and Rectal Surgery [address] [facility] [address] [place] [address] [place] [address] [place] [address] 10/30/2025 3:00 PM CDT Office Visit [facility] Pulmonology [facility] [address] [facility] [place] [address] Everett Cam MD [address] [facility] [address] [place] [address] documented as of this encounter Visit Diagnoses Not on filedocumented in this encounter Additional Health Concerns Infection Onset Date Last Indicated Resolved Time R/O Respiratory 01/11/2023 01/11/2023 01/11/2023 7 :48 PM FOUNDATION MAKER R/O Respiratory 02/19/2024 02/19/2024 02/19/2024 1 1:21 AM FOUNDATION MAKER Influenza 02/19/2024 02/19/2024 02/26/2024 1:16 AM FOUNDATION MAKER R/O Respiratory 03/13/2024 03/13/2024 03/13/2024 4 :20 PM FOUNDATION MAKER Human Metapneumovirus 03/13/2024 03/13/20242024 1:16 AM FOUNDATION MAKER R/O C. diff 03/13/2024 03/13/2024 03/14/2024 8:00 PM FOUNDATION MAKER R/O C. diff 03/14/2024 03/14/2024 03/15/2024 6:17 PM FOUNDATION MAKER documented as of this encounter Care Teams Poultry Farmworker Relationship Specialty Start Date End Date Juventino Howe MD [address] [place] [address] PCP - General Internal Medicine 11/04/11 documented as of this encounter
--- OUTSIDE RECORDS SUMMARY | 2024-12-07 18:05 | XMS_ITS | Encounter Summary ---
Author Organization [facility] Address [address] [place] [address] Care Team Providers Care Purchasing And Fiscal Clerk Name Role Phone Juventino Howe MD Primary Care Provider [phone] Encounter Details Date Type Department Care Team (Latest Contact Info) Description 08/27/2008 Outpatient Historical [facility] Lynne Navarro MD [address] [place] [address] Neurogenic Bowel; Heartburn Social History Tobacco Use Types Packs/Day Years Used Date Smoking Tobacco: Never Alcohol Use Standard Drinks/Week Comments No 0 (1 standard drink = 0.6 oz pur e alcohol) Comments No Sex and Gender Information Value Date Recorded Sex Assigned at Not on file Legal Sex Female 3:38 AM JUNIOR MECHANICAL ENGINEER Gender Identity Not on file Sexual Orientation Not on file documented as of this encounter Plan of Treatment Upcoming Encounters Date Type Department Care Team (Late st Contact Info) Description 12/12/2024 4:30 PM CDT Appointment [facility] [place] [address] [facility] [place] [address] Cata Terry, [place] [address] [place] [address] Maegan Duncan, Physical Therapist 12/19/2024 9:30 AM JUNIOR MECHANICAL ENGINEER Appointment [facility] Rad[facility] S [facility] [address] [place] [address] Anselmo Durham MD [address] [facility] [address] [place] [address] 12/19/2024 10:40 AM JUNIOR MECHANICAL ENGINEER Office Visit [facility] EAR, NOSE AND THROAT [facility] [address] [facility] [address] [place] [address] Anselmo Durham MD [address] [facility] [address] [place] [address] 12/20/2024 2:00 PM JUNIOR MECHANICAL ENGINEER Office Visit [facility] Internal Medicine Medical [place] [address] [facility] [address] [address] Juventino Howe MD [address] [facility] [address] [place] [address] 12/28/2024 2:45 PM JUNIOR MECHANICAL ENGINEER Office Visit [facility] Endocrinology [address] [facility] [address] [place] [address] Sheldon Canales MD [address] [facility] [address] [place] [address] 01/04/2025 2:00 PM JUNIOR MECHANICAL ENGINEER Office Visit [facility] Neurology [address] [facility] [address] [place] [address] Juventino Howe MD [address] [facility] [address] [place] [address] Bobbi Davalos MD [address] [facility] [address] [place] [address] 02/26/2025 3:10 PM JUNIOR MECHANICAL ENGINEER Office Visit [facility] Gastroenterology [address] [facility] [address] [place] [address] Suzette Cody MD [address] [facility] [address] [place] [address] 03/28/2025 2:30 PM JUNIOR MECHANICAL ENGINEER Office Visit [facility] Colon and Rectal Surgery [address] [facility] [address] [facility] [address] [facility] [address] [place] [address] [place] [address] [place] [address] 10/30/2025 3:00 PM CDT Office Visit [facility] Pulmonology [facility] [address] [facility] [address] [place] [address] Everett Cam MD [address] [facility] [address] [place] [address] documented as of this encounter [...] AM CDT Narrative 08/27/2008 1:48 PM CDT [facility] [address] [place], [place] [address] Admit Date: 08/27/2008 DUYEN OROSCO Sex: F Admit Prov: LYNNE ESCOBAR Date: 1960 Primary Care Prov: CMRN: [id number] [id number] IM[facility]ING [facility] Ordering Prov: N/A Accession Number: [id number] Interpretation Examination: Chest Two views Clinical History: Chest pain and heartburn Findings: Chest examination fails to demonstrate pleural, pulmonary, or mediastinal abnormality. Impression: Radiographically normal chest. . Dictated by: Angela PERERA 08/27/2008 13:46 Electronically signed by: Angela PERERA 08/27/2008 13:47 Procedure Note Donny Perera MD - 08/27/2008 [facility] [address] [place], [place] [address] Admit Date: 08/27/2008 GURJIT DOMINICK Sex: F Admit Prov: LYNNE ESCOBAR Date: 1960 Primary Care Prov: CMRN: [id number] Room: [facility] SSN: [id number] IMAGING SERVICES Ordering Prov: N/A Interpretation Examination: [...] CREATININE, URINE 13(L) 29 - 226 mg/dL [facility] Comment:Reference Range vari es with fluid intake and diet. PROTEIN TOTAL, URINE <6 0 - 20 mg/dL [facility] PROTEIN/CREATI NINE RATIO, UPE <0.46(H) 0.00 - 0.19 mg/mg creatinine [facility] UPE INTERPRETED BY: Amirah Blevins MD [facility] UPE INTERP There is no proteinuria. Normal immunofixation; negative for Bence-Arreaga protein. [facility] 08/27/2008 11:2 2 AM CDT 08/27/2008 12:01 PM CDT us Lynne Escobar MD URINE ORDERABLES Edited Performing Organization Address [facility] Phone Number INTERFACE SYSTEM Refer to clinic/hospital department [facility] CLIA# [id number] [address] [place] [address] * (ABNORMAL) IMMUNOGLOBULINS IGG IGA IGM (08/27/2008 11:22 AM CDT) IGA 165.8 87.0 - 421.0 mg/dL [facility] IGG 663(L) 674 - 1554 mg/dL [facility] IGM 148.3 46.0 - 293.0 mg/dL [facility] 08/27/2008 11:2 2 AM CDT 08/27/2008 11:49 AM CDT us Lynne Escobar MD CHEMISTRY ORDERABLES Final Resu lt Performing Organization Address [facility] Phone Number INTERFACE SYSTEM Refer to clinic/hospital department [facility] CLIA# [id number] [address] [place] [address] documented in this encounter Visit Diagnoses Diagnosis Neurogenic bowel Heartburn documented in this encounter Additional Health Concerns Infection Onset Date Last Indicated Resolved Time R/O Respiratory 01/11/2023 01/11/2023 01/11/2023 7 :48 PM JUNIOR MECHANICAL ENGINEER R/O Respiratory 02/19/2024 02/19/2024 02/19/2024 1 1:21 AM JUNIOR MECHANICAL ENGINEER Influenza 02/19/2024 02/19/2024 02/26/2024 1:16 AM JUNIOR MECHANICAL ENGINEER R/O Respiratory 03/13/2024 03/13/2024 03/13/2024 4 :20 PM JUNIOR MECHANICAL ENGINEER Human Metapneumovirus 03/13/2024 03/13/20242024 1:16 AM JUNIOR MECHANICAL ENGINEER R/O C. diff 03/13/2024 03/13/2024 03/14/2024 8:00 PM JUNIOR MECHANICAL ENGINEER R/O C. diff 03/14/2024 03/14/2024 03/15/2024 6:17 PM JUNIOR MECHANICAL ENGINEER documented as of this encounter Care Teams Purchasing And Fiscal Clerk Relationship Specialty Start Date End Date Juventino Howe MD [address] [facility] [address] [place] [address] PCP - General Internal Medicine 11/04/11 documented as of this encounter
--- OUTSIDE RECORDS SUMMARY | 2024-12-07 18:05 | XMS_ITS | Encounter Summary ---
Author Organization [facility] Address [address] [place] [address] Care Team Providers Care Medical Officer Psychiatry Name Role Phone Juventino Howe MD Primary Care Provider [phone] Encounter Details Date Type Department Care Team (Latest Contact Info) Description 03/24/2004 Inpatient Historical [place] [address] [place] [address] FEMALE GENITAL SYMPTOMS NOS (Primary Dx) Social History Tobacco Use Types Packs/Day Years Used Date Smoking Tobacco: Never Assessed Comments Unknown Sex and Gender Information Value Date Recorded Sex Assigned at Not on file Legal Sex Female 3:38 AM CALCULATING 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 Gender Identity Not on file Sexual Orientation Not on file documented as of this encounter Plan of Treatment Upcoming Encounters Date Type Department Care Team (Late st Contact Info) Description 12/12/2024 4:30 PM CDT [facility] [place] [address] [facility] [address] [place] [address] Cata Terry, [place] [address] [place] [address] Maegan Duncan, Physical Therapist 12/19/2024 9:30 AM CALCULATING 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 Appointment [facility] Radiology S [facility] [address] [place] [address] Anselmo Durham MD [address] [facility] [address] [place] [address] 12/19/2024 10:40 AM CALCULATING 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 Office Visit [facility] EAR, NOSE AND THROAT [facility] [address] [place] [address] Anselmo Durham MD [address] [place] [address] 12/20/2024 2:00 PM CALCULATING 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 Office Visit [facility] Internal Medicine Medical [place] [address] [address] Juventino Howe MD [address] [place] [address] 12/28/2024 2:45 PM CALCULATING 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 Office Visit [facility] Endocrinology [address] [place] [address] Sheldon Canales MD [address] [place] [address] 01/04/2025 2:00 PM CALCULATING 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 Office Visit [facility] Neurology [address] [place] [address] Juventino Howe MD [address] [place] [address] Bobbi Davalos MD [address] [place] [address] 02/26/2025 3:10 PM CALCULATING 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 Office Visit [facility] Gastroenterology [address] [place] [address] Suzette Cody MD [address] [place] [address] 03/28/2025 2:30 PM CALCULATING 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 Office Visit [facility] Colon and Rectal Surgery [address] [place] [address] [place] [address] [place] [address] 10/30/2025 3:00 PM CDT Office Visit [facility] Pulmonology [facility] [address] [facility] [address] [place] [address] Everett Cam MD [address] [facility] [address] [place] [address] documented as of this encounter Procedures Procedure Name Priority Date/Time Associated Diagnosis Comments HEMOGLOBIN AND HEMATOCRIT Routine 03/18/2004 3:30 PM CALCULATING 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 documented in this encounter Results * HEMOGLOBIN AND HEMATOCRIT (03/18/2004 3:30 PM CALCULATING 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) HEMOGLOBIN 14.3 11.8 - 14.8 g/dL INTERFACE SYSTEM HEMATOCRIT 42.2 35.5 - 44.0 % INTERFACE SYSTEM 03/18/2004 3:30 PM CALCULATING 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 us Lulu Zhou MD HEMATOLOGY ORDERABLES Final Re sult INTERFACE SYSTEM Refer to clinic/hospital department documented in this encounter Visit Diagnoses Diagnosis Unspecified symptom associated with female genital organs- Primary documented in this encounter Additional Health Concerns Infection Onset Date Last Indicated Resolved Time R/O Respiratory 01/11/2023 01/11/2023 01/11/2023 7 :48 PM CALCULATING 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 R/O Respiratory 02/19/2024 02/19/2024 02/19/2024 1 1:21 AM CALCULATING 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 Influenza 02/19/2024 02/19/2024 02/26/2024 1:16 AM CALCULATING 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 R/O Respiratory 03/13/2024 03/13/2024 03/13/2024 4 :20 PM CALCULATING 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 Human Metapneumovirus 03/13/2024 03/13/20242024 1:16 AM CALCULATING 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 R/O C. diff 03/13/2024 03/13/2024 03/14/2024 8:00 PM CALCULATING 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 R/O C. diff 03/14/2024 03/14/2024 03/15/2024 6:17 PM CALCULATING 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 documented as of this encounter Care Teams Medical Officer Psychiatry Relationship Specialty Start Date End Date Juventino Howe MD [address] [facility] [address] [place] [address] PCP - General Internal Medicine 11/04/11 documented as of this encounter
--- OUTSIDE RECORDS SUMMARY | 2024-12-07 18:05 | XMS_ITS | Encounter Summary ---
Author Organization [facility] Address [address] [place] [address] Care Team Providers Care Tool Die Maker Name Role Phone Juventino Howe MD Primary Care Provider [phone] Encounter Details Date Type Department Care Team (Late st Contact Info) Description 06/20/2008 Outpatient Historical HIS IMG-HOSP Conversion, History Bob Mittal MD Department of Radiology [address] [place] [address] Social History Tobacco Use Types Packs/Day Years Used Date Smoking Tobacco: Never Assessed Comments Unknown Sex and Gender Information Value Date Recorded Sex Assigned at Not on file Legal Sex Female 3:38 AM RESIDENT MANAGER Gender Identity Not on file Sexual Orientation Not on file documented as of this encounter Plan of Treatment Upcoming Encounters Date Type Department Care Team (Late Contact Info) Description 12/12/2024 4:30 PM CDT Appointment [facility] Therapy Services [address] [place] [address] Cata Terry, [place] [address] [place] [address] Maegan Duncan, Physical Therapist 12/19/2024 9:30 AM RESIDENT MANAGER Appointment [facility] Radiology S [facility] [address] [place] [address] Anselmo Durham MD 607 [facility] [address] [place] [address] 12/19/2024 10:40 AM RESIDENT MANAGER Office Visit [facility] EAR, NOSE AND THROAT [facility] [address] [place] [address] Anselmo Durham MD [address] [facility] [address] [place] [address] 12/20/2024 2:00 PM RESIDENT MANAGER Office Visit [facility] Internal Medicine Medical [place] [address] [address] Juventino Howe MD [address] [place] [address] 12/28/2024 2:45 PM RESIDENT MANAGER Office Visit [facility] Endocrinology [address] [place] [address] Sheldon Canales MD [address] [facility] [address] [place] [address] 01/04/2025 2:00 PM RESIDENT MANAGER Office Visit [facility] Neurology [address] [place] [address] Juventino Howe MD [address] [place] [address] Bobbi Davalos MD [address] [place] [address] 02/26/2025 3:10 PM RESIDENT MANAGER Office Visit [facility] Gastroenterology [address] [place] [address] Suzette Cody MD [address] [place] [address] 03/28/2025 2:30 PM RESIDENT MANAGER Office Visit [facility] Colon and Rectal Surgery [address] [place] [address] [place] [address] [place] [address] 10/30/2025 3:00 PM CDT Office Visit [facility] Pulmonology [facility] [address] [facility] [address] [place] [address] Everett Cam MD [address] [facility] [address] [place] [address] documented as of this encounter [...] INTERFACE SYSTEM - 06/26/2008 11:13 PM CDT [facility] [address] [place], [place] [address] Admit Date: 06/20/2008 DUYEN OROSCO Sex: F Admit Prov: DOCTOR , NOT ONSTAFF Date: 1960 Primary Care Prov: CMRN: [id number] Room: [facility] SSN: [id number] IMAGING SERVICES Ordering Prov: DOCTOR , NOT ONSTAFF Accession Number: [id number] Interpretation SEE OTHER REPORT OF SAME DATE. Dictated by: RADIOLOGY, DEPARTMENT O Electronically signed by: RADIOLOGY, DEPARTMENT 06/26/2008 23:11 Transcribed: 06/26/2008 23:04 AMK Procedure Note Radiology, Radiologist - 06/26/2008 [address] [place], [place] [address] Admit Date: 06/20/2008 DUYEN OROSCO Sex: F Admit Prov: DOCTOR , NOT ONSTAFF Date: 1960 Primary Care Prov: CMRN: [id number] [facility] [address] [place] [address] IMAGING SERVICES Ordering Prov: DOCTOR , NOT ONSTAAUBREY Interpretation SEE OTHER REPORT OF SAME DATE. Dictated by: RADIOLOGY, DEPARTMENT O Electronically signed by: RADIOLOGY, DEPARTMENT 06/26/2008 23:11 Transcribed: 06/26/2008 23:04 AMK us History Conversion DIAGNOSTIC IMAGING ORDERABLES Final Result Performing Organization Address City/State/[facility] Co de Phone Number INTERFACE SYSTEM Refer to clinic/hospital department * US GUIDE NEEDLE PLACEMENT (06/20/2008 10:45 AM CDT) Anatomical Region Laterality Modality Other 06/20/2008 10:4 5 AM CDT Narrative 06/20/2008 5:17 PM CDT [address] [address] Admit Date: 06/20/2008 DUYEN OROSCO Sex: F Admit Prov: DOCTOR , NOT ONSTAFF Date: 1960 Primary Care Prov: CMRN: [id number] [facility] [address] [place] [address] IMAGING SERVICES Ordering Prov: N/A Accession Number: [id number] Interpretation Ultrasound-guided right -sided thyroid biopsy History [...] by: BOB MITTAL 06/20/2008 17:15 Procedure Note Bob Mittal MD - 06/20/[address] [address] Admit Date: 06/20/2008 DUYEN OROSCO Sex: F Admit Prov: DOCTOR , NOT ONSTAFF Date: 1960 Primary Care Prov: CMRN: [id number] Room: [facility] SSN: [address] [place] [address] IMAGING SERVICES Ordering Prov: N/A Interpretation Ultrasound-guided [...] (06/20/2008 10:30 AM CDT) PATHOLOGY/CYT OLOGY REPORT [address] [address] Patient: DUYEN OROSCO : 1960 Procedure Date: 06/20/2008 Accession Date: 06/20/2008 Case No: [id number] Ordering Dr: DOCTOR , NOT ONSTAFF Case types AW, BW, FW, NW and SH are performed by [facility], [place], [place] SURGICAL PATHOLOGY & NON-GYNECOLOGIC CYTOPATHOLOGY REPORT DIAGNOSIS: THYROID, RIGHT, SMEAR AND CELL BLOCK EXAMINATION: - BENIGN CYST FLUID. Specimen Description: Right thyroid. Operative Procedure: Not stated. Patient Information/Histo ry/Diagnosis: Not stated. Gross: We receive one container with 25 cc reddish-colored fluid. The specimen is received in CytoLyt. A liquid-based monolayer smear and cell block are prepared. FELI/TMZ 06.21.2008 08:06 am Microscopic: The thyroid aspirate contains numerous macrophages, consistent with cystic degeneration of a nodule. No thyroid follicular epithelial cells are identified in the smear partition, and rare benign thyroid fragments are present in the cell block sections. FELI/TMZ 06.21.2008 08:06 am Staging Form: No ELECTRONIC [...] Respiratory 01/11/2023 01/11/2023 01/11/2023 7 :48 PM RESIDENT MANAGER R/O Respiratory 02/19/2024 02/19/2024 02/19/2024 1 1:21 AM RESIDENT MANAGER Influenza 02/19/2024 02/19/2024 02/26/2024 1:16 AM RESIDENT MANAGER R/O Respiratory 03/13/2024 03/13/2024 03/13/2024 4 :20 PM RESIDENT MANAGER Human Metapneumovirus 03/13/2024 03/13/20242024 1:16 AM RESIDENT MANAGER R/O C. diff 03/13/2024 03/13/2024 03/14/2024 8:00 PM RESIDENT MANAGER R/O C. diff 03/14/2024 03/14/2024 03/15/2024 6:17 PM RESIDENT MANAGER documented as of this encounter Care Teams Tool Die Maker Relationship Specialty Start Date End Date Juventino Howe MD [address] [facility] [address] [place] [address] PCP - General Internal Medicine 11/04/11 documented as of this encounter
--- OUTSIDE RECORDS SUMMARY | 2024-12-07 18:05 | XMS_ITS | Encounter Summary ---
Author Organization [facility] Address [address] [place] [address] Care Team Providers Care Survey Technologist Name Role Phone Juventino Howe MD Primary Care Provider [phone] Reason for Visit * Reason Onset Date Comments follow-up questions 11/24/2024 Encounter Details Date Type Department Care Team (Late st Contact Info) Description 11/24/2024 Telephone [facility] Neurosurgery - [facility] [address] [facility] [address] [place] [address] Provider, Abstract NO ADDRESS ON FILE follow-up questions Social History Tobacco Use Types Packs/Day Years [...] on file Legal Sex Female 3:38 AM PLASTIC FRAME INSERTER Gender Identity Not on file Sexual Orientation Not on file 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 Duyen, I will forward this to Dr. Cortez so that he can review as well. Based on my review, I don'tsee anything acute that would require urgent intervention. Aside from the dizziness, are you havingany other symptoms? Worsening neck pain, weakness/numbness, clumsiness in the hands? -ROCHELLE Sandra She stated that too many days have passed and she is unable to respond to you on that same past message. She stated she's had more PT done since with new information she needs to pass forward for possible f/u and continued care. documented in this encounter Plan of Treatment Upcoming Encounters Date Type Department Care Team (Late st Contact Info) Description 12/12/2024 4:30 PM CDT Appointment [facility] Therapy Services [place] [id number] [address] Cata Terry, MOTORCYCLE ENGINE ASSEMBLER [address] [place] [address] Maegan Duncan, Physical Therapist 12/19/2024 9:30 AM PLASTIC FRAME INSERTER Appointment [facility] Radiology S [facility] [address] [place] [address] Anselmo Durham MD [address] [address] 12/19/2024 10:40 AM PLASTIC FRAME INSERTER Office Visit [facility] EAR, NOSE AND THROAT [place] [facility] 607 [facility] [address] [place] [address] Anselmo Durham MD 607 [facility] [address] [place] [address] 12/20/2024 2:00 PM PLASTIC FRAME INSERTER Office Visit [facility] Internal Medicine Medical [place] [address] [address] Juventino Howe MD [address] [place] [address] 12/28/2024 2:45 PM PLASTIC FRAME INSERTER Office Visit [facility] Endocrinology [address] [place] [address] Sheldon Canales MD [address] [facility] [address] [place] [address] 01/04/2025 2:00 PM PLASTIC FRAME INSERTER Office Visit [facility] Neurology [address] [place] [address] Juventino Howe MD [address] [place] [address] Bobbi Davalos MD [address] [place] [address] 02/26/2025 3:10 PM PLASTIC FRAME INSERTER Office Visit [facility] Gastroenterology [address] [place] [address] Suzette Cody MD [address] [place] [address] 03/28/2025 2:30 PM PLASTIC FRAME INSERTER Office Visit [facility] Colon and Rectal Surgery [address] [place] [address] [place] [address] [place] [address] 10/30/2025 3:00 PM CDT Office Visit [facility] Pulmonology [facility] [address] [facility] [address] [place] [address] Everett Cam MD [address] [facility] [address] [place] [address] documented as of this encounter Visit Diagnoses Not on filedocumented in this encounter Care Teams Survey Technologist Relationship Specialty Start Date End Date Juventino Howe MD [address] [facility] [address] [place] [address] PCP - General Internal Medicine 11/04/11 documented as of this encounter
--- OUTSIDE RECORDS SUMMARY | 2024-12-07 18:05 | XMS_ITS | Encounter Summary ---
Author Organization [facility] Address [address] [place] [address] Care Team Providers Care Medical Collections Specialist Name Role Phone Juventino Howe MD Primary Care Provider [phone] Encounter Details Date Type Department Care Team (Latest Contact Info) Description 10/12/2007 Outpatient Historical HIS [facility] Lee, Sulema [place] MD NO ADDRESS ON FILE Solitary Cyst of Breast Social History Tobacco Use Types Packs/Day Years Used Date Smoking Tobacco: Never Assessed Comments Unknown Sex and Gender Information Value Date Recorded Sex Assigned at Not on file Legal Sex Female 3:38 AM HOOKER INSPECTOR Gender Identity Not on file Sexual Orientation Not on file documented as of this encounter Plan of Treatment Upcoming Encounters Date Type Department Care Team (Late st Contact Info) Description 12/12/2024 4:30 PM CDT Appointment [facility] Therapy Services [place] [address] [facility] 145 [place] [address] Cata Terry, [place] [address] [place] [address] Maegan Duncan, Physical Therapist 12/19/2024 9:30 AM HOOKER INSPECTOR Appointment [facility] Radiology S [facility] [address] [place] [address] Anselmo Durham MD 607 [facility] [address] [place] [address] 12/19/2024 10:40 AM HOOKER INSPECTOR Office Visit [facility] EAR, NOSE AND THROAT [facility] [address] [facility] [address] [place] [address] Anselom Durham MD [address] [facility] [address] [place] [address] 12/20/2024 2:00 PM HOOKER INSPECTOR Office Visit [facility] Internal Medicine Medical [place] [address] [address] Juventino Howe MD [address] [place] [address] 12/28/2024 2:45 PM HOOKER INSPECTOR Office Visit [facility] Endocrinology [address] [facility] [address] [place] [address] Sheldon Canales MD [address] [facility] [address] [place] [address] 01/04/2025 2:00 PM HOOKER INSPECTOR Office Visit [facility] Neurology [address] [place] [address] Juventino Howe MD [address] [place] [address] Bobbi Davalos MD [address] [place] [address] 02/26/2025 3:10 PM HOOKER INSPECTOR Office Visit [facility] Gastroenterology [address] [place] [address] Suzette Cody MD [address] [place] [address] 03/28/2025 2:30 PM HOOKER INSPECTOR Office Visit [facility] Colon and Rectal Surgery [address] [facility] [address] [place] [address] [place] [address] [place] [address] 10/30/2025 3:00 PM CDT Office Visit [facility] Pulmonology [facility] [address] [facility] [address] [place] [address] Everett Cam MD [address] [facility] [address] [place] [address] documented as of this encounter Visit Diagnoses Diagnosis Solitary cyst of breast documented in this encounter Additional Health Concerns Infection Onset Date Last Indicated Resolved Time R/O Respiratory 01/11/2023 01/11/2023 01/11/2023 7 :48 PM HOOKER INSPECTOR R/O Respiratory 02/19/2024 02/19/2024 02/19/2024 1 1:21 AM HOOKER INSPECTOR Influenza 02/19/2024 02/19/2024 02/26/2024 1:16 AM HOOKER INSPECTOR R/O Respiratory 03/13/2024 03/13/2024 03/13/2024 4 :20 PM HOOKER INSPECTOR Human Metapneumovirus 03/13/2024 03/13/20242024 1:16 AM HOOKER INSPECTOR R/O C. diff 03/13/2024 03/13/2024 03/14/2024 8:00 PM HOOKER INSPECTOR R/O C. diff 03/14/2024 03/14/2024 03/15/2024 6:17 PM HOOKER INSPECTOR documented as of this encounter Care Teams Medical Collections Specialist Relationship Specialty Start Date End Date Juventino oHwe MD [address] [facility] [address] [place] [address] PCP - General Internal Medicine 11/04/11 documented as of this encounter
--- OUTSIDE RECORDS SUMMARY | 2024-12-07 18:06 | XMS_ITS | Encounter Summary ---
Author Organization [facility] Address [address] [place] [address] Care Team Providers Care Product Trainer Name Role Phone Juventino Howe MD Primary Care Provider [phone] Encounter Details Date Type Department Care Team (Latest Contact Info) Description 05/25/2007 Outpatient Historical HIS [facility] Price Jr., MD Gadiel NO ADDRESS ON FILE Abdominal or Pelvic Swelling, Mass, or Lump Social History Tobacco Use Types Packs/Day Years Used Date Smoking Tobacco: Never Assessed Comments Unknown Sex and Gender Information Value Date Recorded Sex Assigned at Not on file Legal Sex Female 3:38 AM FUNERAL LOCATION MANAGER Gender Identity Not on file Sexual Orientation Not on file documented as of this encounter Plan of Treatment Upcoming Encounters Date Type Department Care Team (Late st Contact Info) Description 12/12/2024 4:30 PM CDT Appointment [facility] Therapy Services [place] [address] [facility] 145 [place] [address] Cata Terry, [place]AR[place] [address] [place] [address] Maegan Duncan, Physical Therapist 12/19/2024 9:30 AM FUNERAL LOCATION MANAGER Appointment [facility] Radiology S [facility] [address] [place] [address] Anselmo Durham MD 607 [facility] [address] [place] [address] 12/19/2024 10:40 AM FUNERAL LOCATION MANAGER Office Visit [facility] EAR, NOSE AND THROAT [facility] 607 [facility] [address] [place] [address] Anselmo Durham MD [address] [facility] [address] [place] [address] 12/20/2024 2:00 PM FUNERAL LOCATION MANAGER Office Visit [facility] Internal Medicine Medical [place] [address] [address] Juventino Howe MD [address] [facility] [address] [place] [address] 12/28/2024 2:45 PM FUNERAL LOCATION MANAGER Office Visit [facility] Endocrinology [address] [facility] [address] [place] [address] Sheldon Canales MD [address] [facility] [address] [place] [address] 01/04/2025 2:00 PM FUNERAL LOCATION MANAGER Office Visit [facility] Neurology [address] [facility] [address] [place] [address] Juventino Howe MD [address] [facility] [address] [place] [address] Bobbi Davalos MD [address] [place] [address] 02/26/2025 3:10 PM FUNERAL LOCATION MANAGER Office Visit [facility] Gastroenterology [place] [address] [place] [address] Suzette Cody MD [address] [place] [address] 03/28/2025 2:30 PM FUNERAL LOCATION MANAGER Office Visit [facility] Colon and Rectal Surgery [address] [place] [address] [place] [address] [place] [address] 10/30/2025 3:00 PM CDT Office Visit [facility] Pulmonology [facility] [address] [place] [address] Everett Cam MD [address] [place] [address] documented as of this encounter Procedures Procedure Name Priority Date/Time Associated Diagnosis Comments CANCER ANTIGEN 125 Routine 05/25/2007 10 :27 AM CDT documented in this encounter Results * CANCER ANTIGEN 125 (05/25/2007 10:27 AM CDT) CA 125 8 <=34 U/mL [facility] Comment: Reference Range: CA-125 </= 34 [...] 10:27 AM CDT 05/25/2007 10:34 AM CDT us Gadiel Price Jr., MD CHEMISTRY ORDERABLES Fi nal Result [facility] [address] [place] [address] documented in this encounter Visit Diagnoses Diagnosis Abdominal or pelvic swelling, mass, or lump documented in this encounter Additional Health Concerns Infection Onset Date Last Indicated Resolved Time R/O Respiratory 01/11/2023 01/11/2023 01/11/2023 7 :48 PM FUNERAL LOCATION MANAGER R/O Respiratory 02/19/2024 02/19/2024 02/19/2024 1 1:21 AM FUNERAL LOCATION MANAGER Influenza 02/19/2024 02/19/2024 02/26/2024 1:16 AM FUNERAL LOCATION MANAGER R/O Respiratory 03/13/2024 03/13/2024 03/13/2024 4 :20 PM FUNERAL LOCATION MANAGER Human Metapneumovirus 03/13/2024 03/13/20242024 1:16 AM FUNERAL LOCATION MANAGER R/O C. diff 03/13/2024 03/13/2024 03/14/2024 8:00 PM FUNERAL LOCATION MANAGER R/O C. diff 03/14/2024 03/14/2024 03/15/2024 6:17 PM FUNERAL LOCATION MANAGER documented as of this encounter Care Teams Product Trainer Relationship Specialty Start Date End Date Juventino Howe MD [address] [facility] [address] [place] [address] PCP - General Internal Medicine 11/04/11 documented as of this encounter
--- OUTSIDE RECORDS SUMMARY | 2024-12-07 18:06 | XMS_ITS | Encounter Summary ---
Author Organization [facility] Address [address] [place] [address] Care Team Providers Care Follow Up Rep Name Role Phone Juventino Howe MD Primary Care Provider [phone] Encounter Details Date Type Department Care Team (Late st Contact Info) Description 09/26/2007 Emergency [facility] Er, Authorized P NO ADDRESS ON FILE Hill Alexander MD NO ADDRESS ON FILE Social History Tobacco Use Types Packs/Day Years Used Date Smoking Tobacco: Never Assessed Comments Unknown Sex and Gender Information Value Date Recorded Sex Assigned at Not on file Legal Sex Female 3:38 AM SKEWER UP Gender Identity Not on file Sexual Orientation Not on file documented as of this encounter Plan of Treatment Upcoming Encounters Date Type Department Care Team (Late st Contact Info) Description 12/12/2024 4:30 PM CDT Appointment [facility] Therapy Services [place] [address] [facility] [address] [place] [address] Cata Terry, [place] [address] [place] [address] Maegan Duncan, Physical Therapist 12/19/2024 9:30 AM SKEWER UP Appointment [facility] Radiology S [facility] [address] [place] [address] Anselmo Durham MD 607 [facility] [address] [place] [address] 12/19/2024 10:40 AM SKEWER UP Office Visit [facility] EAR, NOSE AND THROAT [facility] CANCER CENTER [address] [facility] [address] [place] [address] Anselmo Durham MD [address] [address] [facility] [address] [place] [address] 12/20/2024 2:00 PM SKEWER UP Office Visit [facility] Internal Medicine Medical [place] A [address] [address] Juventino Howe MD [address] [facility] [address] [place] [address] 12/28/2024 2:45 PM SKEWER UP Office Visit [facility] Endocrinology [address] [facility] [address] [place] [address] Sheldon Canales MD [address] [facility] [address] [place] [address] 01/04/2025 2:00 PM SKEWER UP Office Visit [facility] Neurology [address] [facility] [address] [place] [address] Juventino Howe MD [address] [facility] [address] [place] [address] Bobbi Davalos MD [address] [place] [address] 02/26/2025 3:10 PM SKEWER UP Office Visit [facility] Gastroenterology [place] [address] [place] [address] Suzette Cody MD [address] [place] [address] 03/28/2025 2:30 PM SKEWER UP Office Visit [facility] Colon and Rectal Surgery [address] [place] [address] [place] [address] [place] [address] 10/30/2025 3:00 PM CDT Office Visit [facility] Pulmonology [facility] [address] [facility] [address] [place] [address] Everett Cam MD [address] [facility] [address] [place] [address] documented as of this encounter [...] AM CDT Narrative 09/27/2007 12:20 AM CDT [place] [id number] [place], [place] [address] Admit Date: 09/26/2007 DUYEN OROSCO Sex: F Admit Prov: ER, AUTHORIZED P Date: 1960 Primary Care Prov: CMRN: [id number] Room: ER-A SSN: [address] [place] [address] IMAGING SERVICES Ordering Prov: N/A Accession Number: [id number] Interpretation CT abdomen and pelvis with contrast [...] 00:18 Procedure Note Leonora Lynn - 09/27/2007 [place] [address] [place] [address] Admit Date: 09/26/2007 DUYEN OROSCO Sex: F Admit Prov: ER, AUTHORIZED P Date: 1960 Primary Care Prov: CMRN: [id number] Room: ER-A SSN: [address] [place] [address] IMAGING SERVICES Ordering Prov: N/A Interpretation CT [...] Electronically signed by: LEONORA LYNN 09/27/2007 00:[address] ORDERABLES Final Result * URINALYSIS (09/26/2007 9:45 PM CDT) [facility] SPECIFIC GRAVITY UA 1.004 1.001 - 1.035 [facility] BLOOD UA Negative Negative [facility] GLUCOSE UA Negative Negative [facility] COLOR UA Pale Yellow [facility] NITRITE UA Negative Negative [facility] UROBILINOGEN UA <1 <=1 mg/dL [facility] PH UA 5.0 5.0 - 8.0 [facility] KETONES UA Negative Negative [facility] CLARITY UA Clear Clear [facility] PROTEIN UA Negative Negative [facility] BILIRUBIN UA Negative Negative [facility] LEUKOCYTE ESTERASE UA Negative Negative [facility] 09/26/2007 9:45 PM CDT 09/26/2007 9:58 PM CDT Hill Alexander MD URINE ORDERABLES Alice l Result [facility] CLIA# [id number] [address] [place] [place] [address] * URINALYSIS WITH REFLEX CULTURE (09/26/2007 9:45 PM CDT) [facility] URINE CULTURE ORDER Not indicated [facility] Comment: Criteria for a reflex culture [...] PM CDT Hill Alexander MD URINE ORDERABLES Alice l Result Performing Organization Address [facility] Co de Phone Number [facility] CLIA# [id number] [address] [place] [address] * LIPASE (09/26/2007 9:41 PM CDT) LIPASE 49 13 - 60 U/L [facility] Blood specimen (specimen) 09/26/2007 9:41 PM CDT 09/26/2007 9:43 PM CDT Narrative [facility] - 09/27/2007 3:18 PM CDT add on blood in lab Hill Alexander MD CHEMISTRY ORDERABLES Final Result Performing Organization Address City/[facility] Co de Phone Number [facility] CLIA# [id number] [address] [place] [address] * AMYLASE (09/26/2007 9:41 PM CDT) AMYLASE 32 28 - 100 U/L [facility] Blood specimen (specimen) 09/26/2007 9:41 PM CDT 09/26/2007 9:43 PM CDT Narrative [facility] - 09/27/2007 3:18 PM CDT add on blood in lab Hill Alexander MD CHEMISTRY ORDERABLES Final Result Performing Organization Address City/[facility]/ZIP Co de Phone Number [facility] CLIA# [id number] [address] [place] [address] * C-REACTIVE PROTEIN (09/26/2007 9:41 PM CDT) Pathologist [facility] CRP 0.6 0.0 - 0.8 mg/dL [facility] Blood specimen (specimen) 09/26/2007 9:41 PM CDT 09/26/2007 9:43 PM CDT us Hill Alexander MD CHEMISTRY ORDERABLES Final Result Performing Organization Address [facility] Co de Phone Number [facility] CLIA# [id number] [address] [place] [address] * (ABNORMAL) COMPREHENSIVE METABOLIC PANEL (09/26/2007 9:41 PM CDT) Pathologist [facility] BUN 9 6 - 20 mg/dL [facility] CALCIUM 10.3(H) 8.6 - 10.2 mg/dL [facility] Comment:Note new reference r coni effective 09/15/07 CHLORIDE 101 96 - 108 mmol/L [facility] ALBUMIN 4.8 3.4 - 4.8 g/dL [facility] CREATININE 0.78 0.51 - 0.95 mg/dL [facility] SODIUM 138 135 - 145 mmol/L [facility] ALT 40(H) 0 - 31 U/L [facility] ALKALINE PHOSPHATASE 132(H) 35 - 104 U/L [facility] BILIRUBIN TOTAL 0.3 0.2 - 1.0 mg/dL [facility] CO2 25 22 - 30 mmol/L [facility] TOTAL PROTEIN 7.8 6.3 - 8.6 g/dL [facility] POTASSIUM 3.7 3.5 - 4.9 mmol/L [facility] GLUCOSE 88 65 - 99 mg/dL [facility] AST 34(H) 12 - 32 U/L [facility] GFR, >60 >=60 mL/min/1. 7 sq meter [facility] GFR >60 >=60 mL/min/1. 7 sq meter [facility] Comment: Modification of Diet in Renal Disease (MDRD) study formula. Estimated GFR rate interpretative information for both Americans and non- Americans is available on the [facility] Intranet at: [email or web address] Select: Lab Policies and Procedures Select: Reference Ranges - GFR Blood specimen (specimen) 09/26/2007 9:41 PM CDT 09/26/2007 9:43 PM CDT us Hill Alexander MD CHEMISTRY ORDERABLES Edited [facility] CLIA# [id number] [address] [facility] [place] [address] * (ABNORMAL) CBC WITH DIFFERENTIAL (09/26/2007 9:41 PM CDT) MCV 93.0 82.0 - 99.0 fL [facility] PLATELETS 279 140 - 350 K/uL [facility] HEMOGLOBIN 16.4(H) 11.8 - 14.8 g/dL [facility] RDW 13.1 11.5 - 14.5 % [facility] WBC 9.0 4.0 - 9.8 K/uL [facility] MCH 32.9(H) 27.2 - 32.6 pg [facility] MPV 11.2 9.3 - 12.4 fL [facility] HEMATOCRIT 46.3(H) 35.5 - 44.0 % [facility] RDW-STDEV 44.0 37.1 - 48.7 fL [facility] RBC 4.98(H) 3.90 - 4.90 M/uL [facility] MCHC 35.4 31.5 - 35.5 % [facility] NEUTROPHIL ABSOLUTE 4.37 1.90 - 7.00 K/uL [facility] EOSINOPHILS 2 0 - 7 % [facility] EOSINOPHIL ABSOLUTE 0.17 0.00 - 0.70 K/uL [facility] LYMPHOCYTES 42 16 - 45 % [facility] LYMPHOCYTE ABSOLUTE 3.75 0.70 - 4.50 K/uL [facility] BASOPHILS 0 0 - 2 % [facility] BASOPHILS ABSOLUTE 0.03 0.00 - 0.20 K/uL [facility] MONOCYTES 7 3 - 13 % [facility] MONOCYTE ABSOLUTE 0.64 0.10 - 1.30 K/uL [facility] NEUTROPHILS 49 45 - 70 % [facility] Blood specimen (specimen) 09/26/2007 9:41 PM CDT 09/26/2007 9:43 PM CDT Narrative INTERFACE SYSTEM - 09/29/2007 4:58 PM CDT results faxed 09/29/07 4:58 PM dl [phone] us Hill Alexander MD HEMATOLOGY ORDERABLES Edited INTERFACE SYSTEM Refer to clinic/hospital department [facility] CLIA# [id number] [address] [place] [address] documented in this encounter Visit Diagnoses Not on filedocumented in this encounter Additional Health Concerns Infection Onset Date Last Indicated Resolved Time R/O Respiratory 01/11/2023 01/11/2023 01/11/2023 7 :48 PM SKEWER UP R/O Respiratory 02/19/2024 02/19/2024 02/19/2024 1 1:21 AM SKEWER UP Influenza 02/19/2024 02/19/2024 02/26/2024 1:16 AM SKEWER UP R/O Respiratory 03/13/2024 03/13/2024 03/13/2024 4 :20 PM SKEWER UP Human Metapneumovirus 03/13/2024 03/13/20242024 1:16 AM SKEWER UP R/O C. diff 03/13/2024 03/13/2024 03/14/2024 8:00 PM SKEWER UP R/O C. diff 03/14/2024 03/14/2024 03/15/2024 6:17 PM SKEWER UP documented as of this encounter Care Teams Follow Up Rep Relationship Specialty Start Date End Date Juventino Howe MD [address] [facility] [address] [place] [address] PCP - General Internal Medicine 11/04/11 documented as of this encounter
--- OUTSIDE RECORDS SUMMARY | 2024-12-07 18:06 | XMS_ITS | Encounter Summary ---
Author Organization [facility] Address [address] [place] [address] Care Team Providers Care Companion Name Role Phone Juventino Howe MD Primary Care Provider [phone] Encounter Details Date Type Department Care Team (Late st Contact Info) Description 01/05/2008 Outpatient Historical [facility] Gaum, Ehsan Alonzo MD NO ADDRESS ON FILE Social History Tobacco Use Types Packs/Day Years Used Date Smoking Tobacco: Never Assessed Comments Unknown Sex and Gender Information Value Date Recorded Sex Assigned at Not on file Legal Sex Female 3:38 AM GRADER GREEN MEAT Gender Identity Not on file Sexual Orientation Not on file documented as of this encounter Plan of Treatment Upcoming Encounters Date Type Department Care Team (Late st Contact Info) Description 12/12/2024 4:30 PM CDT Appointment [facility] Therapy Services [place] [address] [facility] [address] [place] [address] Cata Terry, CITY CARRIER [address] [place], [place] [address] Maegan Duncan, Physical Therapist 12/19/2024 9:30 AM GRADER GREEN MEAT Appointment [facility] Radiology S [facility] [address] [place] [address] Anselmo Durham MD [address] [facility] [address] [place] [address] 12/19/2024 10:40 AM GRADER GREEN MEAT Office Visit [facility] EAR, NOSE AND THROAT [facility] [address] [facility] [facility] [address] [place] [address] Anselmo Durham MD [address] [facility] [address] [place] [address] 12/20/2024 2:00 PM GRADER GREEN MEAT Office Visit [facility] Internal Medicine Medical [place] [address] [address] Juventino Howe MD [address] [place] [address] 12/28/2024 2:45 PM GRADER GREEN MEAT Office Visit [facility] Endocrinology [address] [facility] [address] [place] [address] Sheldon Canales MD [address] [facility] [address] [place] [address] 01/04/2025 2:00 PM GRADER GREEN MEAT Office Visit [facility] Neurology [address] [place] [address] Juventino Howe MD [address] [place] [address] Bobbi Davalos MD [address] [place] [address] 02/26/2025 3:10 PM GRADER GREEN MEAT Office Visit [facility] Gastroenterology [place] [address] [place] [address] Suzette Cody MD [address] [place] [address] 03/28/2025 2:30 PM GRADER GREEN MEAT Office Visit [facility] Colon and Rectal Surgery [address] [facility] [address] [place] [address] [place] [address] [place] [address] 10/30/2025 3:00 PM CDT Office Visit [facility] Pulmonology [facility] [address] [facility] [address] [place] [address] Everett Cam MD [address] [place] [address] documented as of this encounter Visit Diagnoses Not on filedocumented in this encounter Additional Health Concerns Infection Onset Date Last Indicated Resolved Time R/O Respiratory 01/11/2023 01/11/2023 01/11/2023 7 :48 PM GRADER GREEN MEAT R/O Respiratory 02/19/2024 02/19/2024 02/19/2024 1 1:21 AM GRADER GREEN MEAT Influenza 02/19/2024 02/19/2024 02/26/2024 1:16 AM GRADER GREEN MEAT R/O Respiratory 03/13/2024 03/13/2024 03/13/2024 4 :20 PM GRADER GREEN MEAT Human Metapneumovirus 03/13/2024 03/13/20242024 1:16 AM GRADER GREEN MEAT R/O C. diff 03/13/2024 03/13/2024 03/14/2024 8:00 PM GRADER GREEN MEAT R/O C. diff 03/14/2024 03/14/2024 03/15/2024 6:17 PM GRADER GREEN MEAT documented as of this encounter Care Teams Companion Relationship Specialty Start Date End Date Juventino Howe MD [address] [facility] [address] [place] [address] PCP - General Internal Medicine 11/04/11 documented as of this encounter
--- OUTSIDE RECORDS SUMMARY | 2024-12-07 18:06 | XMS_ITS | Encounter Summary ---
Author Organization [facility] Address [address] [place] [address] Care Team Providers Care Cylinder Checker Name Role Phone Juventino Howe MD Primary Care Provider [phone] Encounter Details Date Type Department Care Team (Latest Contact Info) Description 03/26/2008 Outpatient Historical [facility] Lynne Navarro MD [address] [place] [address] Flatulence, Eructation, and Gas Pain Social History Tobacco Use Types Packs/Day Years Used Date Smoking Tobacco: Never Assessed Comments Unknown Sex and Gender Information Value Date Recorded Sex Assigned at Not on file Legal Sex Female 3:38 AM USPS LETTER CARRIER Gender Identity Not on file Sexual Orientation Not on file documented as of this encounter Plan of Treatment Upcoming Encounters Date Type Department Care Team (Late st Contact Info) Description 12/12/2024 4:30 PM CDT Appointment [facility] Therapy Services [place] [address] [facility] [address] [place] [address] Cata Terry, [place] [address] [place] [address] Maegan Duncan, Physical Therapist 12/19/2024 9:30 AM USPS LETTER CARRIER Appointment [facility] Radiology [address] [place] [address] Anselmo Durham MD [address] [facility] [address] [place] [address] 12/19/2024 10:40 AM USPS LETTER CARRIER Office Visit [facility] EAR, NOSE AND THROAT [facility] [address] [place] [address] Anselmo Durham MD [address] [facility] [address] [place] [address] 12/20/2024 2:00 PM USPS LETTER CARRIER Office Visit [facility] Internal Medicine Medical [place] [address] [address] Juventino Howe MD [address] [place] [address] 12/28/2024 2:45 PM USPS LETTER CARRIER Office Visit [facility] Endocrinology [address] [place] [address] Sheldon Canales MD [address] [facility] [address] [place] [address] 01/04/2025 2:00 PM USPS LETTER CARRIER Office Visit [facility] Neurology [address] [place] [address] Juventino Howe MD [address] [place] [address] Bobbi Davalos MD [address] [place] [address] 02/26/2025 3:10 PM USPS LETTER CARRIER Office Visit [facility] Gastroenterology [place] [address] [place] [address] Suzette Cody MD [address] [place] [address] 03/28/2025 2:30 PM USPS LETTER CARRIER Office Visit [facility] Colon and Rectal Surgery [address] [place] [address] [place] [address] [place] [address] 10/30/2025 3:00 PM CDT Office Visit [facility] Pulmonology [facility] [address] [facility] [address] [place] [address] Everett Cam MD [address] [facility] [address] [place] [address] documented as of this encounter Visit Diagnoses Diagnosis Flatulence, eructation, and gas pain documented in this encounter Additional Health Concerns Infection Onset Date Last Indicated Resolved Time R/O Respiratory 01/11/2023 01/11/2023 01/11/2023 7 :48 PM USPS LETTER CARRIER R/O Respiratory 02/19/2024 02/19/2024 02/19/2024 1 1:21 AM USPS LETTER CARRIER Influenza 02/19/2024 02/19/2024 02/26/2024 1:16 AM USPS LETTER CARRIER R/O Respiratory 03/13/2024 03/13/2024 03/13/2024 4 :20 PM USPS LETTER CARRIER Human Metapneumovirus 03/13/2024 03/13/20242024 1:16 AM USPS LETTER CARRIER R/O C. diff 03/13/2024 03/13/2024 03/14/2024 8:00 PM USPS LETTER CARRIER R/O C. diff 03/14/2024 03/14/2024 03/15/2024 6:17 PM USPS LETTER CARRIER documented as of this encounter Care Teams Cylinder Checker Relationship Specialty Start Date End Date Juventino Howe MD [address] [facility] [facility] [address] [place] [address] PCP - General Internal Medicine 11/04/11 documented as of this encounter
--- OUTSIDE RECORDS SUMMARY | 2024-12-07 18:06 | XMS_ITS | Encounter Summary ---
Author Organization [facility] Address [address] [place] [address] Care Team Providers Care Lung Splitter Name Role Phone Juventino Howe MD Primary Care Provider [phone] Reason for Visit * Reason Comments Paperwork Encounter Details Date Type Department Care Team (Late st Contact Info) Description 09/21/2024 Telephone [facility] Internal Medicine Medical [place] [address] [address] Juventino Howe MD [address] [place] [address] Paperwork Social History Tobacco Use Types Packs/Day Years [...] on file Legal Sex Female 3:38 AM INSTITUTION DIRECTOR Gender Identity Not on file Sexual Orientation Not on file 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 Topic: CPA Information Request - Paperwork Requests >> Sep 21, 2024 3:00 PM Caity Goetz wrote: Caller Name: Duyen Orosco Callback Number: Telephone Information: Call Notes (not required): current handicap expires the end of 09/2024 Caller is requesting: Handicap Placard Request Has the patient been seen for this in the last 12 months? Yes Reason for Request: same reasons as before Temporary or permanent: temporary Where was paperwork submitted: How does patient want paperwork received: [facility] Paperwork Due Date: as soon as possible documented in this encounter Plan of Treatment Upcoming Encounters Date Type Department Care Team (Late st [facility] Info) Description 12/12/2024 4:30 PM CDT Appointment [facility] [place] [address] [facility] [address] [place] [id number] Cata Terry, [place] [address] [place], [place] [id number] Maegan Duncan, Physical Therapist 12/19/2024 9:30 AM INSTITUTION DIRECTOR Appointment [facility] Rad[facility] S [facility] [address] [place] [address] Anselmo Durham MD [address] [facility] [address] [place] [address] 12/19/2024 10:40 AM INSTITUTION DIRECTOR Office Visit [facility] EAR, NOSE AND THROAT [facility] CANCER CENTER [address] [facility] [address] [place] [address] Anselmo Durham MD [address] [facility] [address] [place] [address] 12/20/2024 2:00 PM INSTITUTION DIRECTOR Office Visit [facility] Internal Medicine Medical [place] [address] [facility] [address] [address] Juventino Howe MD [address] [facility] [address] [address] [place] [address] 12/28/2024 2:45 PM INSTITUTION DIRECTOR Office Visit [facility] Endocrinology [address] [facility] [address] [address] [place] [address] Sheldon Canales MD [address] [facility] [address] [place] [address] 01/04/2025 2:00 PM INSTITUTION DIRECTOR Office Visit [facility] Neurology [address] [facility] [address] [place] [address] Juventino Howe MD [address] [facility] [address] [address] [place] [address] Bobbi Davalos MD [address] [facility] [address] [place] [address] 02/26/2025 3:10 PM INSTITUTION DIRECTOR Office Visit [facility] Gastroenterology [address] [facility] [address] [place] [address] Suzette Cody MD [address] [place] [address] 03/28/2025 2:30 PM INSTITUTION DIRECTOR Office Visit [facility] Colon and Rectal Surgery [address] [place] [address] [place] [address] [place] [address] 10/30/2025 3:00 PM CDT Office Visit [facility] Pulmonology [facility] [address] [place] [address] Everett Cam MD [address] [place] [address] documented as of this encounter Visit Diagnoses Not on filedocumented in this encounter Care Teams Lung Splitter Relationship Specialty Start Date End Date Juventino Howe MD [address] [place] [address] PCP - General Internal Medicine 11/04/11 documented as of this encounter
--- OUTSIDE RECORDS SUMMARY | 2024-12-07 18:06 | XMS_ITS | Encounter Summary ---
Author Organization [facility] Address [address] [place] [address] Care Team Providers Care Policeman Name Role Phone Juventino Howe MD Primary Care Provider [phone] Encounter Details Date Type Department Care Team (Latest Contact Info) Description 10/20/2007 Outpatient Historical [facility] Lynne Escobar MD [address] [place] [address] Flatulence, Eructation, and Gas Pain Social History Tobacco Use Types Packs/Day Years Used Date Smoking Tobacco: Never Assessed Comments Unknown Sex and Gender Information Value Date Recorded Sex Assigned at Not on file Legal Sex Female 3:38 AM IUSS MASTER ANALYST Gender Identity Not on file Sexual Orientation Not on file documented as of this encounter Plan of Treatment Upcoming Encounters Date Type Department Care Team (Late st Contact Info) Description 12/12/2024 4:30 PM CDT Appointment [facility] [place] 7[address] [facility] 145 [place] [address] Cata Terry, [place] [address] [place] [address] Maegan Duncan, Physical Therapist 12/19/2024 9:30 AM IUSS MASTER ANALYST Appointment [facility] Rad[facility] S [facility] [address] [place] [address] Anselmo Durham MD 607 [facility] [address] [place] [address] 12/19/2024 10:40 AM IUSS MASTER ANALYST Office Visit [facility] EAR, NOSE AND THROAT [facility] [address] [place] [address] Anselmo Durham MD [address] [facility] [address] [place] [address] 12/20/2024 2:00 PM IUSS MASTER ANALYST Office Visit [facility] Internal Medicine Medical [place] [address] [address] Juvention Howe MD [address] [place] [address] 12/28/2024 2:45 PM IUSS MASTER ANALYST Office Visit [facility] Endocrinology [address] [place] [address] Sheldon Canales MD [address] [facility] [address] [place] [address] 01/04/2025 2:00 PM IUSS MASTER ANALYST Office Visit [facility] Neurology [address] [place] [address] Juventino Howe MD [address] [place] [address] Bobbi Davalos MD [address] [place] [address] 02/26/2025 3:10 PM IUSS MASTER ANALYST Office Visit [facility] Gastroenterology [address] [place] [address] Suzette Cody MD [address] [place] [address] 03/28/2025 2:30 PM IUSS MASTER ANALYST Office Visit [facility] Colon and Rectal Surgery [address] [place] [address] [place] [address] [place] [address] 10/30/2025 3:00 PM CDT Office Visit [facility] Pulmonology [facility] [address] [place] [address] Everett Cam MD [address] [place] [address] documented as of this encounter Visit Diagnoses Diagnosis Flatulence, eructation, and gas pain documented in this encounter Additional Health Concerns Infection Onset Date Last Indicated Resolved Time R/O Respiratory 01/11/2023 01/11/2023 01/11/2023 7 :48 PM IUSS MASTER ANALYST R/O Respiratory 02/19/2024 02/19/2024 02/19/2024 1 1:21 AM IUSS MASTER ANALYST Influenza 02/19/2024 02/19/2024 02/26/2024 1:16 AM IUSS MASTER ANALYST R/O Respiratory 03/13/2024 03/13/2024 03/13/2024 4 :20 PM IUSS MASTER ANALYST Human Metapneumovirus 03/13/2024 03/13/20242024 1:16 AM IUSS MASTER ANALYST R/O C. diff 03/13/2024 03/13/2024 03/14/2024 8:00 PM IUSS MASTER ANALYST R/O C. diff 03/14/2024 03/14/2024 03/15/2024 6:17 PM IUSS MASTER ANALYST documented as of this encounter Care Teams Policeman Relationship Specialty Start Date End Date Juventino Howe MD [address] [place] [address] PCP - General Internal Medicine 11/04/11 documented as of this encounter
--- OUTSIDE RECORDS SUMMARY | 2024-12-07 18:06 | XMS_ITS | Encounter Summary ---
Author Organization [facility] Address [address] [place] [address] Care Team Providers Care Manager Transfusion Name Role Phone Juventino Howe MD Primary Care Provider [phone] Encounter Details Date Type Department Care Team (Latest Contact Info) Description 07/29/2007 Outpatient Historical [facility] Lynne Navarro MD [address] [place] [address] Other Constipation Social History Tobacco Use Types Packs/Day Years Used Date Smoking Tobacco: Never Assessed Comments Unknown Sex and Gender Information Value Date Recorded Sex Assigned at Not on file Legal Sex Female 3:38 AM LEARNING AND DEVELOPMENT ANALYST Gender Identity Not on file Sexual Orientation Not on file documented as of this encounter Plan of Treatment Upcoming Encounters Date Type Department Care Team (Late st Contact Info) Description 12/12/2024 4:30 PM CDT [facility]ment [facility] [address] [place] [address] Cata Terry, [place] [address] [place] [address] Maegan Duncan, Physical Therapist 12/19/2024 9:30 AM LEARNING AND DEVELOPMENT ANALYST Appointment [facility] S [facility] [address] [place] [address] Anselmo Durham MD 607 [facility] 2300 [place] [address] 12/19/2024 10:40 AM LEARNING AND DEVELOPMENT ANALYST Office Visit [facility] EAR, NOSE AND THROAT [facility] CANCER CENTER [address] [facility] [facility] [address] [place] [address] Anselmo Durham MD [address] [address] [place] [address] 12/20/2024 2:00 PM LEARNING AND DEVELOPMENT ANALYST Office Visit [facility] Internal Medicine Medical [place] A [address] [address] Juventino Howe MD [address] [place] [address] 12/28/2024 2:45 PM LEARNING AND DEVELOPMENT ANALYST Office Visit [facility] Endocrinology [address] [facility] [address] [place] [address] Sheldon Canales MD [address] [facility] [address] [place] [address] 01/04/2025 2:00 PM LEARNING AND DEVELOPMENT ANALYST Office Visit [facility] Neurology [address] [place] [address] Juventino Howe MD [address] [place] [address] Bobbi Davalos MD [address] [place] [address] 02/26/2025 3:10 PM LEARNING AND DEVELOPMENT ANALYST Office Visit [facility] Gastroenterology [address] [place] [address] Suzette Cody MD [address] [place] [address] 03/28/2025 2:30 PM LEARNING AND DEVELOPMENT ANALYST Office Visit [facility] Colon and Rectal Surgery [address] [place] [address] [place] [address] [place] [address] 10/30/2025 3:00 PM CDT Office Visit [facility] Pulmonology [facility] [address] [facility] [address] [place] [address] Everett Cam MD [address] [facility] [address] [place] [address] documented as of this encounter Procedures Procedure Name Priority Date/Time Associated Diagnosis Comments XR ABDOMEN 1 VW Routine 07/29/2007 11:11 AM CDT documented in this encounter Results * XR ABDOMEN 1 VW (07/29/2007 11:11 AM CDT) Anatomical Region Laterality Modality Abdomen Other 07/29/2007 11:1 1 AM CDT Narrative 07/31/2007 11:12 AM CDT [facility] [address], [place] [address] Admit Date: 07/29/2007 DUYEN OROSCO Sex: F Admit Prov: LYNNE ESCOBAR Date: 1960 Primary Care Prov: CMRN: [id number] Room: JOVANILang SSN: [id number] IMAGING SERVICES Ordering Prov: N/A Accession Number: [id number] Interpretation ABDOMEN AP SINGLE VIEW. 07/29/07 History: [...] Procedure Note Tamera Farah MD - 07/31/2007 [facility] [address], [place] [address] Admit Date: 07/29/2007 DUYEN OROSCO Sex: F Admit Prov: LYNNE ESOCBAR Date: 1960 Primary Care Prov: CMRN: [id number] [facility]: [id number] IMAGING SERVICES Ordering Prov: N/A Interpretation ABDOMEN AP SINGLE VIEW. 07/29/07 History: Constipation, Sitz study. Findings: There are no radiopaque markers in the abdomen. There ashely moderate amount of stool throughout the colon and rectum. There isno evidence of small bowel obstruction. There are sutures andphleboliths in the pelvis which are unchanged as compared to the previous exam ofMay 25, 2007. Opinion: A moderate amount of [...] Respiratory 01/11/2023 01/11/2023 01/11/2023 7 :48 PM LEARNING AND DEVELOPMENT ANALYST R/O Respiratory 02/19/2024 02/19/2024 02/19/2024 1 1:21 AM LEARNING AND DEVELOPMENT ANALYST Influenza 02/19/2024 02/19/2024 02/26/2024 1:16 AM LEARNING AND DEVELOPMENT ANALYST R/O Respiratory 03/13/2024 03/13/2024 03/13/2024 4 :20 PM LEARNING AND DEVELOPMENT ANALYST Human Metapneumovirus 03/13/2024 03/13/20242024 1:16 AM LEARNING AND DEVELOPMENT ANALYST R/O C. diff 03/13/2024 03/13/2024 03/14/2024 8:00 PM LEARNING AND DEVELOPMENT ANALYST R/O C. diff 03/14/2024 03/14/2024 03/15/2024 6:17 PM LEARNING AND DEVELOPMENT ANALYST documented as of this encounter Care Teams Manager Transfusion Relationship Specialty Start Date End Date Juventino Howe MD [address] [facility] [address] [place] [address] PCP - General Internal Medicine 11/04/11 documented as of this encounter
--- OUTSIDE RECORDS SUMMARY | 2024-12-07 18:06 | XMS_ITS | Encounter Summary ---
Author Organization [facility] Address [address] [place] [address] Care Team Providers Care Gis Professor Name Role Phone Juventino Howe MD Primary Care Provider [phone] Encounter Details Date Type Department Care Team (Latest Contact Info) Description 05/25/2007 Outpatient Historical [facility] Lynne Navarro MD [address] [place] [address] Abdominal Pain, Unspecified Site Social History Tobacco Use Types Packs/Day Years Used Date Smoking Tobacco: Never Assessed Comments Unknown Sex and Gender Information Value Date Recorded Sex Assigned at Not on file Legal Sex Female 3:38 AM SOFTWARE DEVELOPMENT INTERN Gender Identity Not on file Sexual Orientation Not on file documented as of this encounter Plan of Treatment Upcoming Encounters Date Type Department Care Team (Late st Contact Info) Description 12/12/2024 4:30 PM CDT Appointment [facility] Therapy Services [address] [place] [address] Cata Terry, [place] [address] [place] [address] Maegan Duncan, Physical Therapist 12/19/2024 9:30 AM SOFTWARE DEVELOPMENT INTERN Appointment [facility] Radiology S [facility] [address] [place] [address] Anselmo Durham MD 607 [facility] [address] [place] [address] 12/19/2024 10:40 AM SOFTWARE DEVELOPMENT INTERN Office Visit [facility] EAR, NOSE AND THROAT [facility] CANCER CENTER [address] [place] [address] Anselmo uDrham MD [address] [place] [address] 12/20/2024 2:00 PM SOFTWARE DEVELOPMENT INTERN Office Visit [facility] Internal Medicine Medical [place] [address] [address] Juventino Howe MD [address] [place] [address] 12/28/2024 2:45 PM SOFTWARE DEVELOPMENT INTERN Office Visit [facility] Endocrinology [address] [place] [address] Sheldon Canales MD [address] [place] [address] 01/04/2025 2:00 PM SOFTWARE DEVELOPMENT INTERN Office Visit [facility] Neurology [address] [place] [address] Juventino Howe MD [address] [place] [address] Bobbi Davalos MD [address] [place] [address] 02/26/2025 3:10 PM SOFTWARE DEVELOPMENT INTERN Office Visit [facility] Gastroenterology [address] [place] [address] Suzette Cody MD [address] [place] [address] 03/28/2025 2:30 PM SOFTWARE DEVELOPMENT INTERN Office Visit [facility] Colon and Rectal Surgery [address] [place] [address] [place] [address] [place] [address] 10/30/2025 3:00 PM CDT Office Visit [facility] Pulmonology [facility] [address] [facility] [address] [place] [address] Everett Cam MD [address] [facility] [address] [place] [address] documented as of this encounter Procedures Procedure Name Priority Date/Time Associated Diagnosis Comments XR ABDOMEN W DECUB AND OR ERECT 2 VW Routine 05/25/2007 10:23 AM CDT documented in this encounter Results * XR ABDOMEN W DECUB AND OR ERECT (05/25/2007 10:23 AM CDT) Anatomical Region Laterality Modality Abdomen Other 05/25/2007 10:2 3 AM CDT Narrative 05/26/2007 10:14 AM CDT [facility] [place] [place] [address] [place], [place] [address] Admit Date: 05/25/2007 DUYEN OROSCO Sex: F Admit Prov: LYNNE ESCOBAR Date: 1960 Primary Care Prov: CMRN: [id number] Room: JANE SSN: [id number] IMAGING SERVICES Ordering Prov: N/A Accession Number: [id number] Interpretation OBSTRUCTION SERIES WITHOUT CHEST X-RAY, 05/25/2007 [...] 12:48 Procedure Note Meredith Alonzo - 05/26/2007 [facility] [place] [place] [address] [place], [place] [address] Admit Date: 05/25/2007 DUYEN OROSCO Sex: F Admit Prov: LYNNE ESCOBAR Date: 1960 Primary Care Prov: CMRN: [id number] Room: [facility] SSN: [id number] IMAGING SERVICES Ordering Prov: N/A Interpretation OBSTRUCTION [...] 01/11/2023 01/11/2023 01/11/2023 7 :48 PM SOFTWARE DEVELOPMENT INTERN R/O Respiratory 02/19/2024 02/19/2024 02/19/2024 1 1:21 AM SOFTWARE DEVELOPMENT INTERN Influenza 02/19/2024 02/19/2024 02/26/2024 1:16 AM SOFTWARE DEVELOPMENT INTERN R/O Respiratory 03/13/2024 03/13/2024 03/13/2024 4 :20 PM SOFTWARE DEVELOPMENT INTERN Human Metapneumovirus 03/13/2024 03/13/20242024 1:16 AM SOFTWARE DEVELOPMENT INTERN R/O C. diff 03/13/2024 03/13/2024 03/14/2024 8:00 PM SOFTWARE DEVELOPMENT INTERN R/O C. diff 03/14/2024 03/14/2024 03/15/2024 6:17 PM SOFTWARE DEVELOPMENT INTERN documented as of this encounter Care Teams Gis Professor Relationship Specialty Start Date End Date Juventino Howe MD [address] [facility] [address] [place] [address] PCP - General Internal Medicine 11/04/11 documented as of this encounter
--- OUTSIDE RECORDS SUMMARY | 2024-12-07 18:06 | XMS_ITS | Encounter Summary ---
Author Organization [facility] Address [address] [place] [address] Care Team Providers Care Regulatory Compliance Director Name Role Phone Juventino Howe MD Primary Care Provider [phone] Encounter Details Date Type Department Care Team (Latest Contact Info) Description 02/27/2008 Outpatient Historical HIS [facility] Lee, Sulema Sherman MD NO ADDRESS ON FILE Lump or Mass in Breast Social History Tobacco Use Types Packs/Day Years Used Date Smoking Tobacco: Never Assessed Comments Unknown Sex and Gender Information Value Date Recorded Sex Assigned at Not on file Legal Sex Female 3:38 AM PROM BURN OFF OPERATOR Gender Identity Not on file Sexual Orientation Not on file documented as of this encounter Plan of Treatment Upcoming Encounters Date Type Department Care Team (Late st Contact Info) Description 12/12/2024 4:30 PM CDT Appointment [facility] Therapy Services [place] [address] [facility] [address] [place] [address] Cata Terry, [place] [address] [place] [address] Maegan Duncan, Physical Therapist 12/19/2024 9:30 AM PROM BURN OFF OPERATOR Appointment [facility] Radiology S [facility] [address] [place] [address] Anselmo Durham MD [address] [facility] [address] [place] [address] 12/19/2024 10:40 AM PROM BURN OFF OPERATOR Office Visit [facility] EAR, NOSE AND THROAT [facility] [address] [facility] [address] [place] [address] Anselmo Durham MD [address] [facility] [address] [place] [address] 12/20/2024 2:00 PM PROM BURN OFF OPERATOR Office Visit [facility] Internal Medicine Medical [place] [address] [address] Juventino Howe MD [address] [place] [address] 12/28/2024 2:45 PM PROM BURN OFF OPERATOR Office Visit [facility] Endocrinology [address] [facility] [address] [place] [address] Sheldon Canales MD [address] [facility] [address] [place] [address] 01/04/2025 2:00 PM PROM BURN OFF OPERATOR Office Visit [facility] Neurology [address] [place] [address] Juventino Howe MD [address] [facility] [address] [place] [address] Bobbi Davalos MD [address] [place] [address] 02/26/2025 3:10 PM PROM BURN OFF OPERATOR Office Visit [facility] Gastroenterology [address] [place] [address] Suzette Cody MD [address] [place] [address] 03/28/2025 2:30 PM PROM BURN OFF OPERATOR Office Visit [facility] Colon and Rectal Surgery [address] [facility] [address] [facility] [address] [place] [address] [place] [address] [place] [address] 10/30/2025 3:00 PM CDT Office Visit [facility] Pulmonology [facility] [address] [facility] [address] [place] [address] Everett Cam MD [address] [facility] [address] [place] [address] documented as of this encounter Procedures Procedure Name Priority Date/Time Associated Diagnosis Comments PATHOLOGY Routine 02/27/2008 11:26 AM PROM BURN OFF OPERATOR MAMMO DIAGNOSTIC UNI LEFT W OR WO CAD Routine 02/27/2008 10:21 AM PROM BURN OFF OPERATOR XR CONSULTATION Routine 02/27/2008 10:21 AM PROM BURN OFF OPERATOR US GUIDE NEEDLE PLACEMENT Routine 02/27/2008 10:21 AM PROM BURN OFF OPERATOR documented in this encounter Results * PATHOLOGY (02/27/2008 11:26 AM PROM BURN OFF OPERATOR) FINAL REPORT [facility] [address] [place], [place] [address] Patient: DUYEN OROSCO : 1960 Procedure Date: 02/27/2008 Accession Date: 02/27/2008 Case No: [id number] Ordering Dr: CHELSIE SANTAMARIA Case types AW, BW, FW, NW and SH are performed by [facility], [place], [place] SURGICAL PATHOLOGY & NON-GYNECOLOGIC CYTOPATHOLOGY REPORT DIAGNOSIS LEFT BREAST, ULTRASOUND-GUIDED 10-GAUGE CORE BIOPSY: - FIBROCYSTIC CHANGES. Specimen Description: Left breast mass in formalin at 10:10 a.m. Operative Procedure: Left breast ultrasound core biopsy, [id number] cores. Patient Information/Histo ry/Diagnosis: Left breast mass-probable FCC. Gross: Received in one container labeled Duyen Orosco., left breast mass is a 1.7-cm long x 0.4-cm in diameter, yellow tissue core. It is submitted in block A1. [facility] 02.27.2008 06:42 pm Microscopic: Sections are labeled [...] Reference: Arch Pathol Lab Med 1998;122:1053-105 5. BBAlexa/KELLI 02.28.2008 10:41 am Staging Form: No. ELECTRONIC SIGNATURE FOR BENOIT BLACKMON M.D.- 02/28/08 11:40 am INTERFACE SYSTEM 02/27/2008 11:2 6 AM PROM BURN OFF OPERATOR us Chelsie Howard MD PATHOLOGY/CYTOLOGY ORDERABL ES Final Result INTERFACE SYSTEM Refer to clinic/hospital department * MAMMO DIGITAL DIAG UNI LEFT (02/27/2008 10:21 AM PROM BURN OFF OPERATOR) Anatomical Region Laterality Modality Breast Left Other 02/27/2008 10:2 1 AM PROM BURN OFF OPERATOR Narrative 02/27/2008 4:21 PM PROM BURN OFF OPERATOR [place] [id number] [place], [place] [address] Admit Date: 02/27/2008 DUYEN OROSCO Sex: F Admit Prov: SULEMA LEE Date: 1960 Primary Care Prov: CMRN: [id number] Room: [facility] SSN: [id number] IMAGING SERVICES Ordering Prov: SULEMA LEE Accession Number: [id number] Interpretation EXAM: ULTRASOUND-GUIDED CORE BIOPSY OF THE [...] DKT Procedure Note Chelsie Santamaria - 02/27/2008 [facility] [address] [address] Admit Date: 02/27/2008 DUYEN OROSCO Sex: F Admit Prov: SULEMA LEE Date: 1960 Primary Care Prov: CMRN: [id number] Room: [facility] SSN: [id number] IMAGING SERVICES Ordering Prov: SULEMA LEE Interpretation [...] t * XR CONSULTATION (02/27/2008 10:21 AM PROM BURN OFF OPERATOR) 02/27/2008 10:2 1 AM PROM BURN OFF OPERATOR Narrative INTERFACE SYSTEM - 02/29/2008 7:26 AM PROM BURN OFF OPERATOR [facility] [address] [place], [place] [address] Admit Date: 02/27/2008 DUYEN OROSCO Sex: F Admit Prov: SULEMA LEE Date: 1960 Primary Care Prov: CMRN: [id number] Room: [facility] SSN: [id number] [address] IMAGING SERVICES Ordering Prov: SULEMA LEE Accession Number: [id number] Addendum Addendum: Pathology from the patient's recent [...] DKT Procedure Note Chelsie Santamaria - 02/29/2008 [facility] [address] [place], [place] [address] Admit Date: 02/27/2008 DUYEN OROSCO Sex: F Admit Prov: SULEMA LEE Date: 1960 Primary Care Prov: CMRN: [id number] Room: [facility] SSN: [id number] IMAGING SERVICES Ordering Prov: SULEMA LEE Addendum [...] Transcribed: 02/27/2008 11:38 DKT Sulema Lee MD DIAGNOSTIC IMAGING ORDERABLE S Edited Performing Organization Address City/State/[facility] Co de Phone Number INTERFACE SYSTEM Refer to clinic/hospital department * US GUIDE NEEDLE PLACEMENT (02/27/2008 10:21 AM PROM BURN OFF OPERATOR) Anatomical Region Laterality Modality Other 02/27/2008 10:2 1 AM PROM BURN OFF OPERATOR Narrative 02/27/2008 4:21 PM PROM BURN OFF OPERATOR [facility] [address] [place], [place] [address] Admit Date: 02/27/2008 DUYEN OROSCO Sex: F Admit Prov: LISETH SULEMA Lane Date: 1960 Primary Care Prov: CMRN: [id number] Room: [facility] SSN: [id number] IMAGING SERVICES Ordering Prov: LISETHMARQUEZAN Lane Accession Number: [id number] Interpretation EXAM: ULTRASOUND-GUIDED CORE BIOPSY OF THE [...] DKT Procedure Note Chelsie Santamaria - 02/27/2008 [facility] [address] [place], [place] [address] Admit Date: 02/27/2008 DUYEN OROSCO Sex: F Admit Prov: SULEMA LEE Date: 1960 Primary Care Prov: CMRN: [id number] Room: [facility] SSN: [id number] IMAGING SERVICES Ordering Prov: SULEMA LEE Interpretation [...] 02/27/2008 11:38 DKT us Sulema Lee MD ORDERABLES Final Result documented in this encounter Visit Diagnoses Diagnosis Lump or mass in breast documented in this encounter Additional Health Concerns Infection Onset Date Last Indicated Resolved Time R/O Respiratory 01/11/2023 01/11/2023 01/11/2023 7 :48 PM PROM BURN OFF OPERATOR R/O Respiratory 02/19/2024 02/19/2024 02/19/2024 1 1:21 AM PROM BURN OFF OPERATOR Influenza 02/19/2024 02/19/2024 02/26/2024 1:16 AM PROM BURN OFF OPERATOR R/O Respiratory 03/13/2024 03/13/2024 03/13/2024 4 :20 PM PROM BURN OFF OPERATOR Human Metapneumovirus 03/13/2024 03/13/20242024 1:16 AM PROM BURN OFF OPERATOR R/O C. diff 03/13/2024 03/13/2024 03/14/2024 8:00 PM PROM BURN OFF OPERATOR R/O C. diff 03/14/2024 03/14/2024 03/15/2024 6:17 PM PROM BURN OFF OPERATOR documented as of this encounter Care Teams Regulatory Compliance Director Relationship Specialty Start Date End Date Juventino Howe MD [address] [facility] [address] [place] [address] PCP - General Internal Medicine 11/04/11 documented as of this encounter
--- OUTSIDE RECORDS SUMMARY | 2024-12-07 18:06 | XMS_ITS | Encounter Summary ---
Author Organization [facility] Address [address] [place] [address] Care Team Providers Care Cook Helper Pastry Name Role Phone Juventino Howe MD Primary Care Provider Encounter Details Date Type Department Care Team (Late st Contact Info) Description 11/16/2007 Outpatient Historical [facility] [place] [address] [facility] [address] [place] [address] Cholelithiasis NOS Social History Tobacco Use Types Packs/Day Years Used Date Smoking Tobacco: Never Assessed Comments Unknown Sex and Gender Information Value Date Recorded Sex Assigned at Not on file Legal Sex Female 3:38 AM PURCHASING MANAGER/SALES Gender Identity Not on file Sexual Orientation Not on file documented as of this encounter Plan of Treatment Upcoming Encounters Date Type Department Care Team (Late Contact Info) Description 12/12/2024 4:30 PM CDT Appointment [facility] Therapy Services [address] [place] [address] [place] [address] [place] [address] Maegan Duncan, Physical Therapist 12/19/2024 9:30 AM PURCHASING MANAGER/SALES Appointment [facility] Rad[facility] [address] [place] [address] Anselmo Durham MD [address] [facility] [address] [place] [address] 12/19/2024 10:40 AM PURCHASING MANAGER/SALES Office [facility] EAR, NOSE AND THROAT [facility] [address] [place] [address] Anselmo Durham MD [address] [place] [address] 12/20/2024 2:00 PM PURCHASING MANAGER/SALES Office Visit [facility] Internal Medicine Medical [place] [address] [address] Juventino Howe MD [address] [place] [address] 12/28/2024 2:45 PM PURCHASING MANAGER/SALES Office Visit [facility] Endocrinology [address] [place] [address] Sheldon Canales MD [address] [place] [address] 01/04/2025 2:00 PM PURCHASING MANAGER/SALES Office Visit [facility] Neurology [address] [place] [address] Juventino Howe MD [address] [place] [address] Bobbi Davalos MD [address] [place] [address] 02/26/2025 3:10 PM PURCHASING MANAGER/SALES Office Visit [facility] Gastroenterology [address] [place] [address] Suzette Cody MD [address] [place] [address] 03/28/2025 2:30 PM PURCHASING MANAGER/SALES Office Visit [facility] Colon and Rectal Surgery [address] [place] [address] [place] [address] [place] [address] 10/30/2025 3:00 PM CDT Office Visit [facility] Pulmonology [facility] [address] [facility] [address] [place] [address] Everett Cam MD [address] [facility] [address] [place] [address] documented as of this encounter Procedures Procedure Name Priority Date/Time Associated Diagnosis Comments PATHOLOGY Routine 11/28/2007 9:24 AM CDT CBC WITH DIFFERENTIAL Routine 11/23/2007 12:25 PM CDT HEPATIC FUNCTION PANEL Routine 11/23/2007 12:25 PM CDT TYPE AND SCREEN Routine 11/23/2007 12:24 PM CDT documented in this encounter Results * PATHOLOGY (11/28/2007 9:24 AM CDT) FINAL REPORT [facility] [address] [place], [place] [address] Patient: DUYEN OROSCO : 1960 Procedure Date: 11/28/2007 Accession Date: 11/28/2007 Case No: [id number] Ordering Dr: MAYNOR ZALDIVAR Case types AW, BW, FW, NW and SH are performed by [facility], [place], [place] SURGICAL PATHOLOGY & NON-GYNECOLOGIC CYTOPATHOLOGY REPORT DIAGNOSIS GALLBLADDER, ENDOSCOPIC BIOPSY: - MINIMAL CHRONIC INFLAMMATION. Specimen Description: Gallbladder. Operative Procedure: Endoscopic cholecystectomy. Patient Information/Histor y/Diagnosis: Cholecystitis. Gross: Received in a single container labeled Duyen Orosco, sebastian is a 6.8 x 3.7 x 2.8-cm intact gallbladder. The serosal surface is purple-gilbert, smooth and glistening. The lumen contains a viscous yellow bile. No stones are identified. The wall has a uniform thickness of 0.2 cm. The mucosal surface is red-hernandez and velvety. No mucosal lesions are identified. Obgyn Hospitalist Physician sections are submitted in cassette A1. KLA/LKP 11.28.2007 02:16 pm Microscopic: The slide is labeled [id number] Duyen Orosco. Sections of the gallbladder show minimal chronic inflammation and a rare Rokitansky-Aschoff sinus. CJ/ABELINO 11.29.2007 11:32 am Staging Form: No. ELECTRONIC SIGNATURE FOR ITALO RODRIGUEZ MD- 11/29/07 01:24 pm INTERFACE SYSTEM 11/28/2007 9:24 AM CDT us Maynor Zaldivar MD PATHOLOGY/CYTOLOGY ORDERABLES Final Result INTERFACE SYSTEM Refer to clinic/hospital department * (ABNORMAL) CBC WITH DIFFERENTIAL (11/23/2007 12:25 PM CDT) HEMOGLOBIN 15.2(H) 11.8 - 14.8 g/dL [facility] RDW 13.3 11.5 - 14.5 % [facility] WBC 12.4(H) 4.0 - 9.8 K/uL [facility] MCH 32.8(H) 27.2 - 32.6 pg [facility] MPV 11.6 9.3 - 12.4 fL [facility] HEMATOCRIT 43.6 35.5 - 44.0 % [facility] RDW-STDEV 45.7 37.1 - 48.7 fL [facility] RBC 4.64 3.90 - 4.90 M/uL [facility] MCHC 34.9 31.5 - 35.5 % [facility] MCV 94.0 82.0 - 99.0 fL [facility] PLATELETS 273 140 - 350 K/uL [facility] LYMPHOCYTES 24 16 - 45 % [facility] LYMPHOCYTE ABSOLUTE 2.92 0.70 - 4.50 K/uL [facility] BASOPHILS 0 0 - 2 % [facility] BASOPHILS ABSOLUTE 0.03 0.00 - 0.20 K/uL [facility] MONOCYTES 5 3 - 13 % [facility] MONOCYTE ABSOLUTE 0.59 0.10 - 1.30 K/uL [facility] NEUTROPHILS 71(H) 45 - 70 % [facility] NEUTROPHIL ABSOLUTE 8.85(H) 1.90 - 7.00 K/uL [facility] EOSINOPHILS 0 0 - 7 % [facility] EOSINOPHIL ABSOLUTE 0.05 0.00 - 0.70 K/uL [facility] Blood specimen (specimen) 11/23/2007 12:25 PM CDT 11/23/2007 2:00 PM CDT us Maynor Zaldivar MD HEMATOLOGY ORDERABLES Edited INTERFACE SYSTEM Refer to clinic/hospital department [facility] CLIA# [id number] [address] [place], [place] [address] * (ABNORMAL) HEPATIC FUNCTION PANEL (11/23/2007 12:25 PM CDT) BILIRUBIN TOTAL 0.2 0.2 - 1.0 mg/dL [facility] TOTAL PROTEIN 7.5 6.3 - 8.6 g/dL [facility] BILIRUBIN DIRECT <0.1 0.0 - 0.3 mg/dL [facility] ALBUMIN 4.6 3.4 - 4.8 g/dL [facility] AST 18 12 - 32 U/L [facility] ALKALINE PHOSPHATASE 113(H) 35 - 104 U/L [facility] ALT 18 0 - 31 U/L [facility] Blood specimen (specimen) 11/23/2007 12:25 PM CDT 11/23/2007 2:00 PM CDT Maynor Zaldivar MD CHEMISTRY ORDERABLES Final Res ult Performing Organization Address [facility] de Phone Number INTERFACE SYSTEM Refer to clinic/hospital department [facility] CLIA# [id number] [address] [place] [address] * TYPE AND SCREEN (11/23/2007 12:24 PM CDT) HISTORY CHECK History Checked [facility] SPECIMEN LIFE 3 days from OR date [facility] ABO/RH TYPE A Positive [facility] ANTIBODY SCREEN Negative [facility] Blood specimen (specimen) 11/23/2007 12:24 PM CDT Maynor Zaldivar MD BLOOD BANK ORDERABLES Edited Performing Organization Address [facility] de Phone Number INTERFACE SYSTEM Refer to clinic/hospital department [facility] CLIA# [id number] [address] [place] [address] documented in this encounter Visit Diagnoses Diagnosis Calculus of gallbladder without mention of cholecystitis or obstruction documented in this encounter Additional Health Concerns Infection Onset Date Last Indicated Resolved Time R/O Respiratory 01/11/2023 01/11/2023 01/11/2023 7 :48 PM PURCHASING MANAGER/SALES R/O Respiratory 02/19/2024 02/19/2024 02/19/2024 1 1:21 AM PURCHASING MANAGER/SALES Influenza 02/19/2024 02/19/2024 02/26/2024 1:16 AM PURCHASING MANAGER/SALES R/O Respiratory 03/13/2024 03/13/2024 03/13/2024 4 :20 PM PURCHASING MANAGER/SALES Human Metapneumovirus 03/13/2024 03/13/20242024 1:16 AM PURCHASING MANAGER/SALES R/O C. diff 03/13/2024 03/13/2024 03/14/2024 8:00 PM PURCHASING MANAGER/SALES R/O C. diff 03/14/2024 03/14/2024 03/15/2024 6:17 PM PURCHASING MANAGER/SALES documented as of this encounter Care Teams Cook Helper Pastry Relationship Specialty Start Date End Date Juventino Howe MD [address] [facility] [address] [place] [address] PCP - General Internal Medicine 11/04/11 documented as of this encounter
--- OUTSIDE RECORDS SUMMARY | 2024-12-07 18:06 | XMS_ITS | Encounter Summary ---
Author Organization [facility] Address [address] [place] [address] Care Team Providers Care Sheet Metal Duct Installer Name Role Phone Juventino Howe MD Primary Care Provider [phone] Encounter Details Date Type Department Care Team (Late st Contact Info) Description 05/10/2008 Outpatient Historical [facility] Lynne Escobar MD [address] [place] [address] Social History Tobacco Use Types Packs/Day Years Used Date Smoking Tobacco: Never Assessed Comments Unknown Sex and Gender Information Value Date Recorded Sex Assigned at Not on file Legal Sex Female 3:38 AM CUSTOMER COUNTER ASSOCIATE Gender Identity Not on file Sexual Orientation Not on file documented as of this encounter Plan of Treatment Upcoming Encounters Date Type Department Care Team (Late st Contact Info) Description 12/12/2024 4:30 PM CDT Appointment [facility] [place] [address] [facility] [address] [place] [address] Cata Terry, [place] [address] [place] [address] Maegan Duncan, Physical Therapist 12/19/2024 9:30 AM CUSTOMER COUNTER ASSOCIATE [facility]ment [facility] Rad[facility] [address] [facility] [address] [place] [address] Anselmo Durham MD [address] [facility] [address] [place] [address] 12/19/2024 10:40 AM CUSTOMER COUNTER ASSOCIATE Office Visit [facility] EAR, NOSE AND THROAT [facility] [address] [facility] [address] [place] [address] Anselmo Durham MD [address] [facility] [address] [place] [address] 12/20/2024 2:00 PM CUSTOMER COUNTER ASSOCIATE Office Visit [facility] Internal Medicine Medical [place] [address] [address] Juventino Howe MD [address] [facility] [address] [place] [address] 12/28/2024 2:45 PM CUSTOMER COUNTER ASSOCIATE Office Visit [facility] Endocrinology [address] [facility] [address] [place] [address] Sheldon Canales MD [address] [facility] [address] [place] [address] 01/04/2025 2:00 PM CUSTOMER COUNTER ASSOCIATE Office Visit [facility] Neurology [address] [facility] [place] [address] Juventino Howe MD [address] [facility] [address] [place] [address] Bobbi Davalos MD [address] [place] [address] 02/26/2025 3:10 PM CUSTOMER COUNTER ASSOCIATE Office Visit [facility] Gastroenterology [address] [place] [address] Suzette Cody MD [address] [place] [address] 03/28/2025 2:30 PM CUSTOMER COUNTER ASSOCIATE Office Visit [facility] Colon and Rectal Surgery [address] [place] [address] [place] [address] [place] [address] 10/30/2025 3:00 PM CDT Office Visit [facility] Pulmonology [facility] [address] [place] [address] Everett Cam MD [address] [place] [address] documented as of this encounter Visit Diagnoses Not on filedocumented in this encounter Additional Health Concerns Infection Onset Date Last Indicated Resolved Time R/O Respiratory 01/11/2023 01/11/2023 01/11/2023 7 :48 PM CUSTOMER COUNTER ASSOCIATE R/O Respiratory 02/19/2024 02/19/2024 02/19/2024 1 1:21 AM CUSTOMER COUNTER ASSOCIATE Influenza 02/19/2024 02/19/2024 02/26/2024 1:16 AM CUSTOMER COUNTER ASSOCIATE R/O Respiratory 03/13/2024 03/13/2024 03/13/2024 4 :20 PM CUSTOMER COUNTER ASSOCIATE Human Metapneumovirus 03/13/2024 03/13/20242024 1:16 AM CUSTOMER COUNTER ASSOCIATE R/O C. diff 03/13/2024 03/13/2024 03/14/2024 8:00 PM CUSTOMER COUNTER ASSOCIATE R/O C. diff 03/14/2024 03/14/2024 03/15/2024 6:17 PM CUSTOMER COUNTER ASSOCIATE documented as of this encounter Care Teams Sheet Metal Duct Installer Relationship Specialty Start Date End Date Juventino Howe MD [address] [place] [address] PCP - General Internal Medicine 9/19/12 documented as of this encounter
--- OUTSIDE RECORDS SUMMARY | 2024-12-07 18:06 | XMS_ITS | Encounter Summary ---
Author Organization [facility] Address [address] [place] [address] Care Team Providers Care Tariff Expert Name Role Phone Juventino Howe MD Primary Care Provider [phone] Encounter Details Date Type Department Care Team (Late st Contact Info) Description 03/07/2008 Outpatient Historical [facility] Lynne Escobar MD [address] [place] [address] Social History Tobacco Use Types Packs/Day Years Used Date Smoking Tobacco: Never Assessed Comments Unknown Sex and Gender Information Value Date Recorded Sex Assigned at Not on file Legal Sex Female 3:38 AM CHIEF OF PLANNING Gender Identity Not on file Sexual Orientation Not on file documented as of this encounter Plan of Treatment Upcoming Encounters Date Type Department Care Team (Late st Contact Info) Description 12/12/2024 4:30 PM CDT Appointment [facility] [place] [address] [facility] [address] [place] [address] Cata Terry, [place] [address] [place] [address] Maegan Duncan, Physical Therapist 12/19/2024 9:30 AM CHIEF OF PLANNING Appointment [facility] Radiology [address] [facility] [address] [place] [address] Anselmo Durham MD 607 [facility] [address] [place] [address] 12/19/2024 10:40 AM CHIEF OF PLANNING Office Visit [facility] EAR, NOSE AND THROAT [facility] CENTER [address] [facility] [address] [place] [address] Anselmo Durham MD 607 [facility] [address] [place] [address] 12/20/2024 2:00 PM CHIEF OF PLANNING Office Visit [facility] Internal Medicine Medical [place] [address] [address] Juventino Howe MD [address] [facility] [address] [place] [address] 12/28/2024 2:45 PM CHIEF OF PLANNING Office Visit [facility] Endocrinology [address] [facility] [address] [place] [address] Sheldon Canales MD [address] [facility] [address] [place] [address] 01/04/2025 2:00 PM CHIEF OF PLANNING Office Visit [facility] Neurology [address] [place] [address] Juventino Howe MD [address] [facility] [address] [place] [address] Bobbi Davalos MD [address] [place] [address] 02/26/2025 3:10 PM CHIEF OF PLANNING Office Visit [facility] Gastroenterology [place] [address] [place] [address] Suzette Cody MD [address] [place] [address] 03/28/2025 2:30 PM CHIEF OF PLANNING Office Visit [facility] Colon and Rectal Surgery [address] [place] [address] [place] [address] [place] [address] 10/30/2025 3:00 PM CDT Office Visit [facility] Pulmonology [facility] [address] [place] [address] Everett Cam MD [address] [place] [address] documented as of this encounter Visit Diagnoses Not on filedocumented in this encounter Additional Health Concerns Infection Onset Date Last Indicated Resolved Time R/O Respiratory 01/11/2023 01/11/2023 01/11/2023 7 :48 PM CHIEF OF PLANNING R/O Respiratory 02/19/2024 02/19/2024 02/19/2024 1 1:21 AM CHIEF OF PLANNING Influenza 02/19/2024 02/19/2024 02/26/2024 1:16 AM CHIEF OF PLANNING R/O Respiratory 03/13/2024 03/13/2024 03/13/2024 4 :20 PM CHIEF OF PLANNING Human Metapneumovirus 03/13/2024 03/13/20242024 1:16 AM CHIEF OF PLANNING R/O C. diff 03/13/2024 03/13/2024 03/14/2024 8:00 PM CHIEF OF PLANNING R/O C. diff 03/14/2024 03/14/2024 03/15/2024 6:17 PM CHIEF OF PLANNING documented as of this encounter Care Teams Tariff Expert Relationship Specialty Start Date End Date Juventino Howe MD [address] [place] [address] PCP - General Internal Medicine 9/19/12 documented as of this encounter
--- OUTSIDE RECORDS SUMMARY | 2024-12-07 18:06 | XMS_ITS | Encounter Summary ---
Author Organization [facility] Address [address] [place] [address] Care Team Providers Care Body Make Up Artist Name Role Phone Juventino Howe MD Primary Care Provider Encounter Details Date Type Department Care Team (Late st Contact Info) Description 04/21/2007 Outpatient Historical [facility] Lynne Escobar MD [address] [place] [address] Unspecified Constipation Social History Tobacco Use Types Packs/Day Years Used Date Smoking Tobacco: Never Assessed Comments Unknown Sex and Gender Information Value Date Recorded Sex Assigned at Not on file Legal Sex Female 3:38 AM PUMP AND STILL OPERATOR Gender Identity Not on file Sexual Orientation Not on file documented as of this encounter Plan of Treatment Upcoming Encounters Date Type Department Care Team (Late st Contact Info) Description 12/12/2024 4:[address] [facility] [place] [address] [facility] [address] [place] [address] Cata Terry, [place] [address] [place] [address] Maegan Duncan, Physical Therapist 12/19/2024 9:30 AM PUMP AND STILL OPERATOR Appointment [facility] [address] [place] [address] Anselmo Durham MD [address] [facility] [address] [place] [address] 12/19/2024 10:40 AM PUMP AND STILL OPERATOR Office Visit [facility] EAR, NOSE AND THROAT [facility] CANCER CENTER [address] [facility] [address] [place] [address] Anselmo Durham MD [address] [facility] [address] [place] [address] 12/20/2024 2:00 PM PUMP AND STILL OPERATOR Office Visit [facility] Internal Medicine Medical [place] [address] [facility] [address] [address] Juventino Howe MD [address] [facility] [address] [place] [address] 12/28/2024 2:45 PM PUMP AND STILL OPERATOR Office Visit [facility] Endocrinology [address] [facility] [address] [place] [address] Sheldon Canales MD [address] [facility] [address] [place] [address] 01/04/2025 2:00 PM PUMP AND STILL OPERATOR Office Visit [facility] Neurology [address] [facility] [address] [facility] [address] [place] [address] Juventino Howe MD [address] [facility] [address] [place] [address] Bobbi Davalos MD [address] [place] [address] 02/26/2025 3:10 PM PUMP AND STILL OPERATOR Office Visit [facility] Gastroenterology [place] [address] [place] [address] Suzette Cody MD [address] [place] [address] 03/28/2025 2:30 PM PUMP AND STILL OPERATOR Office Visit [facility] Colon and Rectal Surgery [address] [place] [address] [place] [address] [place] [address] 10/30/2025 3:00 PM CDT Office Visit [facility] Pulmonology [facility] [address] [facility] [address] [place] [address] Everett Cam MD [address] [facility] [address] [place] [address] documented as of this encounter Procedures Procedure Name Priority Date/Time Associated Diagnosis Comments PATHOLOGY Routine 04/21/2007 10:31 AM PUMP AND STILL OPERATOR documented in this encounter Results * PATHOLOGY (04/21/2007 10:31 AM PUMP AND STILL OPERATOR) FINAL REPORT [facility] [address] [place], [place] [address] Patient: DUYEN OROSCO : 1960 Procedure Date: 04/21/2007 Accession Date: 04/21/2007 Case No: [id number] Ordering Dr: LYNNE ESCOBAR Case types AW, BW, FW, NW and SH are performed by [facility], [place], [place] SURGICAL PATHOLOGY & NON-GYNECOLOGIC CYTOPATHOLOGY REPORT DIAGNOSIS SMALL INTESTINE, BIOPSY: - MINIMAL ACUTE INFLAMMATION (SEE MICROSCOPIC). STOMACH, BIOPSY: - VERY MILD CHRONIC INFLAMMATION. LARGE INTESTINE, SIGMOID COLON, BIOPSY: - HYPERPLASTIC POLYP. Specimen Description: (1) Small bowel abscesses; (2) stomach biopsy; (3) sigmoid polyp. Operative Procedure: Not specified. Patient Information/Histor y/Diagnosis: Not specified. Gross: Three containers are received labeled Duyen Steinacher. The first specimen is received in a [...] The specimen is submitted entirely labeled C1. CO/[facility] 04.21.2007 12:26 pm Microscopic: cc: Franklin Dos Santos M.D. The slides are labeled [id number], Duyen Orosco. The small intestinal biopsy shows [...] serrated outlines, compatible with a hyperplastic polyp. /[facility] 04.22.2007 02:42 pm Staging Form: No. ELECTRONIC SIGNATURE FOR JF DIAMOND M.D.- 04/22/07 03:51 pm INTERFACE SYSTEM 04/21/2007 10:3 1 AM PUMP AND STILL OPERATOR us Lynne Escobar MD PATHOLOGY/CYTOLOGY ORDERABLES F inal Result INTERFACE SYSTEM Refer to clinic/hospital department documented in this encounter Visit Diagnoses Diagnosis Unspecified constipation documented in this encounter Additional Health Concerns Infection Onset Date Last Indicated Resolved Time R/O Respiratory 01/11/2023 01/11/2023 01/11/2023 7 :48 PM PUMP AND STILL OPERATOR R/O Respiratory 02/19/2024 02/19/2024 02/19/2024 1 1:21 AM PUMP AND STILL OPERATOR Influenza 02/19/2024 02/19/2024 02/26/2024 1:16 AM PUMP AND STILL OPERATOR R/O Respiratory 03/13/2024 03/13/2024 03/13/2024 4 :20 PM PUMP AND STILL OPERATOR Human Metapneumovirus 03/13/2024 03/13/20242024 1:16 AM PUMP AND STILL OPERATOR R/O C. diff 03/13/2024 03/13/2024 03/14/2024 8:00 PM PUMP AND STILL OPERATOR R/O C. diff 03/14/2024 03/14/2024 03/15/2024 6:17 PM PUMP AND STILL OPERATOR documented as of this encounter Care Teams Body Make Up Artist Relationship Specialty Start Date End Date Juventino Howe MD [address] [facility] [address] [place] [address] PCP - General Internal Medicine 11/04/11 documented as of this encounter
--- OUTSIDE RECORDS SUMMARY | 2024-12-07 18:06 | XMS_ITS | Encounter Summary ---
Author Organization [facility] Address [address] [place] [address] Care Team Providers Care Diver Tender Name Role Phone Juventino Howe MD Primary Care Provider Encounter Details Date Type Department Care Team (Latest Contact Info) Description 09/29/2007 Outpatient Historical [facility] Lynne Navarro MD [address] [place] [address] Abdominal Pain, Generalized Social History Tobacco Use Types Packs/Day Years Used Date Smoking Tobacco: Never Assessed Comments Unknown Sex and Gender Information Value Date Recorded Sex Assigned at Not on file Legal Sex Female 3:38 AM MEETING COORDINATOR Gender Identity Not on file Sexual Orientation Not on file documented as of this encounter Plan of Treatment Upcoming Encounters Date Type Department Care Team (Late st Contact Info) Description 12/12/2024 4:30 PM CDT Appointment [facility] [address] [place] [address] Cata Terry, [place] [address] [place] [address] Maegan Duncan, Physical Therapist 12/19/2024 9:30 AM MEETING COORDINATOR Appointment [facility] Rad[facility] S [facility] [address] [place] [address] Anselmo Durham MD 607 [facility] [address] [place] [address] 12/19/2024 10:40 AM MEETING COORDINATOR Office Visit [facility] EAR, NOSE AND THROAT [facility] CANCER CENTER [address] [place] [address] Anselmo Durham MD [address] [place] [address] 12/20/2024 2:00 PM MEETING COORDINATOR Office Visit [facility] Internal Medicine Medical [place] [address] [address] Juventino Howe MD [address] [place] [address] 12/28/2024 2:45 PM MEETING COORDINATOR Office Visit [facility] Endocrinology [address] [place] [address] Sheldon Canales MD [address] [facility] [address] [place] [address] 01/04/2025 2:00 PM MEETING COORDINATOR Office Visit [facility] Neurology [address] [place] [address] Juventino Howe MD [address] [place] [address] Bobbi Davalos MD [address] [place] [address] 02/26/2025 3:10 PM MEETING COORDINATOR Office Visit [facility] Gastroenterology [place] [address] [place] [address] Suzette Cody MD [address] [place] [address] 03/28/2025 2:30 PM MEETING COORDINATOR Office Visit [facility] Colon and Rectal Surgery [address] [place] [address] [place] [address] [place] [address] 10/30/2025 3:00 PM CDT Office Visit [facility] Pulmonology [facility] [address] [place] [address] Everett Cam MD [address] [facility] [address] [place] [address] documented as of this encounter Procedures Procedure Name Priority Date/Time Associated Diagnosis Comments C-REACTIVE PROTEIN Routine 09/29/2007 2: 11 PM CDT LIPASE Routine 09/29/2007 2:11 PM CDT HEPATIC FUNCTION PANEL Routine 09/29/2007 2:11 PM CDT documented in this encounter Results * LIPASE (09/29/2007 2:11 PM CDT) LIPASE 41 13 - 60 U/L [facility] Blood specimen (specimen) 09/29/2007 2:11 PM CDT 09/29/2007 2:29 PM CDT us Lynne Escobar MD CHEMISTRY ORDERABLES Final Resu lt INTERFACE SYSTEM Refer to clinic/hospital department [facility] CLIA# [id number] [address] [place] [address] * C-REACTIVE PROTEIN (09/29/2007 2:11 PM CDT) CRP <0.2 0.0 - 0.8 mg/dL [facility] Blood specimen (specimen) 09/29/2007 2:11 PM CDT 09/29/2007 2:29 PM CDT us Lynne Escobar MD CHEMISTRY ORDERABLES Final Resu lt Performing Organization Address [facility] Phone Number INTERFACE SYSTEM Refer to clinic/hospital department [facility] CLIA# [id number] [address] [place] [address] * (ABNORMAL) HEPATIC FUNCTION PANEL (09/29/2007 2:11 PM CDT) [facility] TOTAL PROTEIN 7.6 6.3 - 8.6 g/dL [facility] BILIRUBIN DIRECT 0.1 0.0 - 0.3 mg/dL [facility] AST 25 12 - 32 U/L [facility] ALBUMIN 4.6 3.4 - 4.8 g/dL [facility] ALT 28 0 - 31 U/L [facility] BILIRUBIN TOTAL 0.4 0.2 - 1.0 mg/dL [facility] ALKALINE PHOSPHATASE 125(H) 35 - 104 U/L [facility] Blood specimen (specimen) 09/29/2007 2:11 PM CDT 09/29/2007 2:29 PM CDT Narrative INTERFACE SYSTEM - 09/29/2007 4:57 PM CDT results faxed 09/29/07 4:57 PM dl [phone] us Lynne Escobar MD CHEMISTRY ORDERABLES Edited Performing Organization Address [facility] de Phone Number INTERFACE SYSTEM Refer to clinic/hospital department [facility] CLIA# [id number] [address] [address] documented in this encounter Visit Diagnoses Diagnosis Abdominal pain, generalized documented in this encounter Additional Health Concerns Infection Onset Date Last Indicated Resolved Time R/O Respiratory 01/11/2023 01/11/2023 01/11/2023 7 :48 PM MEETING COORDINATOR R/O Respiratory 02/19/2024 02/19/2024 02/19/2024 1 1:21 AM MEETING COORDINATOR Influenza 02/19/2024 02/19/2024 02/26/2024 1:16 AM MEETING COORDINATOR R/O Respiratory 03/13/2024 03/13/2024 03/13/2024 4 :20 PM MEETING COORDINATOR Human Metapneumovirus 03/13/2024 03/13/20242024 1:16 AM MEETING COORDINATOR R/O C. diff 03/13/2024 03/13/2024 03/14/2024 8:00 PM MEETING COORDINATOR R/O C. diff 03/14/2024 03/14/2024 03/15/2024 6:17 PM MEETING COORDINATOR documented as of this encounter Care Teams Diver Tender Relationship Specialty Start Date End Date Juventino Howe MD [address] [facility] [address] [place] [address] PCP - General Internal Medicine 11/04/11 documented as of this encounter
--- OUTSIDE RECORDS SUMMARY | 2024-12-07 18:06 | XMS_ITS | Encounter Summary ---
Author Organization [facility] Address [address] [place] [address] Care Team Providers Care Pharmacy Technician Per Diem Name Role Phone Juventino Howe MD Primary Care Provider [phone] Encounter Details Date Type Department Care Team [...] on file Legal Sex Female 3:38 AM COLOR BUFFER Gender Identity Not on file Sexual Orientation Not on file documented as of this encounter Plan of Treatment Upcoming Encounters Date Type Department Care Team (Late st Contact Info) Description 12/12/2024 4:30 PM CDT Appointment [facility] Therapy Services [place] [address] [facility] [address] [place] [address] Cata Terry, [place] [address] [place] [address] Maegan Duncan, Physical Therapist 12/19/2024 9:30 AM COLOR BUFFER Appointment [facility] Radiology S [facility] [address] [place] [address] Anselmo Durham MD 607 [facility] [address] [place] [address] 12/19/2024 10:40 AM COLOR BUFFER Office Visit [facility] EAR, NOSE AND THROAT [facility] CANCER CENTER [address] [facility] [address] [place] [address] Anselmo Durham MD [address] [place] [address] 12/20/2024 2:00 PM COLOR BUFFER Office Visit [facility] Internal Medicine Medical [place] [address] [address] Juventino Howe MD [address] [facility] [address] [place] [address] 12/28/2024 2:45 PM COLOR BUFFER Office Visit [facility] Endocrinology [address] [facility] [address] [place] [address] Sheldon Canales MD [address] [facility] [address] [place] [address] 01/04/2025 2:00 PM COLOR BUFFER Office Visit [facility] Neurology [address] [facility] [address] [place] [address] Juventino Howe MD [address] [facility] [address] [place] [address] Bobbi Davalos MD [address] [place] [address] 02/26/2025 3:10 PM COLOR BUFFER Office Visit [facility] Gastroenterology [place] [address] [place] [address] Suzette Cody MD [address] [place] [address] 03/28/2025 2:30 PM COLOR BUFFER Office Visit [facility] Colon and Rectal Surgery [address] [place] [address] [place] [address] [place] [address] 10/30/2025 3:00 PM CDT Office Visit [facility] Pulmonology [facility] [address] [facility] [address] [place] [address] Everett Cam MD [address] [facility] [address] [place] [address] documented as of this encounter Procedures Procedure Name Priority Date/Time Associated Diagnosis Comments US PELVIS + TRANSVAG NON OB Timed Study 05/25/2007 9:25 AM CDT documented in this encounter Results * US PELVIS + TRANSVAG NON OB (05/25/2007 9:25 AM CDT) Anatomical Region Laterality Modality Pelvis Other 05/25/2007 9:25 AM CDT Narrative 05/25/2007 2:36 PM CDT [facility] [address] [place], [place] [address] Admit Date: 05/25/2007 DUYEN OROSCO Sex: F Admit Prov: NIXON PRICE Date: 1960 Primary Care Prov: CMRN: [id number] Room: [facility] SSN: [id number] IMAGING SERVICES Ordering Prov: N/A Accession Number: [id number] Interpretation PELVIC ULTRASOUND, 05/25/2007 Clinical History: Abnormal [...] AMK Procedure Note Provider, Historical - 05/25/2007 [facility] [address] [place], [place] [address] Admit Date: 05/25/2007 DUYEN OROSCO Sex: F Admit Prov: NIXON PRICE Date: 1960 Primary Care Prov: CMRN: [id number] Room: [facility] SSN: [id number] IMAGING SERVICES Ordering Prov: N/A Interpretation PELVIC [...] RAZO 05/25/2007 14:36 Transcribed: 05/25/2007 12:19 AMK us Nixon Price Jr., MD ORDERABLES Final R esult documented in this encounter Visit Diagnoses Diagnosis Abdominal or pelvic swelling, mass, or lump documented in this encounter Additional Health Concerns Infection Onset Date Last Indicated Resolved Time R/O Respiratory 01/11/2023 01/11/2023 01/11/2023 7 :48 PM COLOR BUFFER R/O Respiratory 02/19/2024 02/19/2024 02/19/2024 1 1:21 AM COLOR BUFFER Influenza 02/19/2024 02/19/2024 02/26/2024 1:16 AM COLOR BUFFER R/O Respiratory 03/13/2024 03/13/2024 03/13/2024 4 :20 PM COLOR BUFFER Human Metapneumovirus 03/13/2024 03/13/20242024 1:16 AM COLOR BUFFER R/O C. diff 03/13/2024 03/13/2024 03/14/2024 8:00 PM COLOR BUFFER R/O C. diff 03/14/2024 03/14/2024 03/15/2024 6:17 PM COLOR BUFFER documented as of this encounter Care Teams Pharmacy Technician Per Diem Relationship Specialty Start Date End Date Juventino Howe MD [address] [facility] [address] [place] [address] PCP - General Internal Medicine 11/04/11 documented as of this encounter
--- OUTSIDE RECORDS SUMMARY | 2024-12-07 18:06 | XMS_ITS | Encounter Summary ---
Author Organization [facility] Address [address] [place] [address] Care Team Providers Care Jewel Hole Cornerer Name Role Phone Juventino Howe MD Primary Care Provider [phone] Encounter Details Date Type Department Care Team (Late st Contact Info) Description 05/11/2007 Outpatient Historical [facility] Lynne Escobar MD [address] [place] [address] Abdominal Pain, Generalized; Abdominal Pain, Unspecified Site Social History Tobacco Use Types Packs/Day Years Used Date Smoking Tobacco: Never Assessed Comments Unknown Sex and Gender Information Value Date Recorded Sex Assigned at Not on file Legal Sex Female 3:38 AM WELLNESS EDUCATOR Gender Identity Not on file Sexual Orientation Not on file documented as of this encounter Plan of Treatment Upcoming Encounters Date Type Department Care Team (Late st Contact Info) Description 12/12/2024 4:30 PM CDT Appointment [facility] Therapy Services [place] [address] [facility] [address] [place] [address] Cata Terry, [place] [address] [place] [address] Maegan Duncan, Physical Therapist 12/19/2024 9:30 AM WELLNESS EDUCATOR Appointment [facility] Radiology [address] [place] [address] Anselmo Durham MD [address] [facility] [address] [place] [address] 12/19/2024 10:40 AM WELLNESS EDUCATOR Office Visit [facility] EAR, NOSE AND THROAT [facility] [address] [facility] [address] [place] [address] Anselmo Durham MD [address] [facility] [address] [place] [address] 12/20/2024 2:00 PM WELLNESS EDUCATOR Office Visit [facility] Internal Medicine Medical [place] A [address] [address] Juventino Howe MD [address] [place] [address] 12/28/2024 2:45 PM WELLNESS EDUCATOR Office Visit [facility] Endocrinology [address] [facility] [address] [place] [address] Sheldon Canales MD [address] [facility] [address] [place] [address] 01/04/2025 2:00 PM WELLNESS EDUCATOR Office Visit [facility] Neurology [address] [place] [address] Juventino Howe MD [address] [place] [address] Bobbi Davalos MD [address] [place] [address] 02/26/2025 3:10 PM WELLNESS EDUCATOR Office Visit [facility] Gastroenterology [place] [address] [place] [address] Suzette Cody MD [address] [place] [address] 03/28/2025 2:30 PM WELLNESS EDUCATOR Office Visit [facility] Colon and Rectal Surgery [address] [place] [address] [place] [address] [place] [address] 10/30/2025 3:00 PM CDT Office Visit [facility] Pulmonology [facility] [address] [facility] [address] [place] [address] Everett Cam MD [address] [facility] [address] [place] [address] documented as of this encounter Procedures Procedure Name Priority Date/Time Associated Diagnosis Comments XR SMALL BOWEL Timed Study 05/11/2007 7:30 AM CDT documented in this encounter Results * XR SMALL BOWEL (05/11/2007 7:30 AM CDT) Anatomical Region Laterality Modality Abdomen Other 05/11/2007 7:30 AM CDT Narrative 05/11/2007 10:42 AM CDT [facility] [address] [place], [place] [address] Admit Date: 05/11/2007 DUYEN OROSCO Sex: F Admit Prov: LYNNE ESCOBAR Date: 1960 Primary Care Prov: CMRN: [id number] Room: [facility] SSN: [id number] IMAGING SERVICES Ordering Prov: N/A Accession Number: [id number] Interpretation SMALL BOWEL SERIES 05/11/2007 Clinical history: Right-sided abdominal pain A preliminary abdominal brush trimming machine setter radiograph demonstrates some surgical celsa in the [...] 09:15 Procedure Note Provider, Historical - 05/11/2007 [facility] [address] [place], [place] [address] Admit Date: 05/11/2007 DUYEN OROSCO Sex: F Admit Prov: LYNNE ESCOBAR Date: 1960 Primary Care Prov: CMRN: [id number] Room: [facility] SSN: [address] [place] [address] IMAGING SERVICES Ordering Prov: N/A Interpretation SMALL BOWEL SERIES 05/11/2007 Clinical history: Right-sided abdominal pain A preliminary abdominal brush trimming machine setter radiograph demonstrates somesurgical celsa in the right [...] AMARIS MERCER 05/11/2007 10:42 Transcribed: 05/11/2007 09:15 Lynne Escobar MD DIAGNOSTIC IMAGING ORDERABLES F inal Result documented in this encounter Visit Diagnoses Diagnosis Abdominal pain, generalized Abdominal pain, unspecified site documented in this encounter Additional Health Concerns Infection Onset Date Last Indicated Resolved Time R/O Respiratory 01/11/2023 01/11/2023 01/11/2023 7 :48 PM WELLNESS EDUCATOR R/O Respiratory 02/19/2024 02/19/2024 02/19/2024 1 1:21 AM WELLNESS EDUCATOR Influenza 02/19/2024 02/19/2024 02/26/2024 1:16 AM WELLNESS EDUCATOR R/O Respiratory 03/13/2024 03/13/2024 03/13/2024 4 :20 PM WELLNESS EDUCATOR Human Metapneumovirus 03/13/2024 03/13/20242024 1:16 AM WELLNESS EDUCATOR R/O C. diff 03/13/2024 03/13/2024 03/14/2024 8:00 PM WELLNESS EDUCATOR R/O C. diff 03/14/2024 03/14/2024 03/15/2024 6:17 PM WELLNESS EDUCATOR documented as of this encounter Care Teams Jewel Hole Cornerer Relationship Specialty Start Date End Date Juventino Howe MD [address] [facility] [address] [place] [address] PCP - General Internal Medicine 11/04/11 documented as of this encounter
--- OUTSIDE RECORDS SUMMARY | 2024-12-07 18:06 | XMS_ITS | Encounter Summary ---
Author Organization [facility] Address [address] [place] [address] Care Team Providers Care Senior Application Software Engineer Name Role Phone Juventino Howe MD Primary Care Provider [phone] Encounter Details Date Type Department Care Team (Late st Contact Info) Description 05/02/2007 Outpatient Historical [facility] Lynne Navarro MD [address] [place] [address] Heartburn Social History Tobacco Use Types Packs/Day Years Used Date Smoking Tobacco: Never Assessed Comments Unknown Sex and Gender Information Value Date Recorded Sex Assigned at Not on file Legal Sex Female 3:38 AM ORIENTATION & MOBILITY SPECIALIST Gender Identity Not on file Sexual Orientation Not on file documented as of this encounter Plan of Treatment Upcoming Encounters Date Type Department Care Team (Late Contact Info) Description 12/12/2024 4:30 PM CDT Appointment [facility] Therapy [facility] [address] [place] [address] Cata Terry, [place] [address] [place] [address] Maegan Duncan, Physical Therapist 12/19/2024 9:30 AM ORIENTATION & MOBILITY SPECIALIST Appointment [facility] Radiology S [facility] [address] [place] [address] Anselmo Durham MD [address] [facility] [address] [place] [address] 12/19/2024 10:40 AM ORIENTATION & MOBILITY SPECIALIST Office Visit [facility] EAR, NOSE AND THROAT [facility] [address] [place] [address] Anselmo Durham MD [address] [facility] [address] [place] [address] 12/20/2024 2:00 PM ORIENTATION & MOBILITY SPECIALIST Office Visit [facility] Internal Medicine Medical [place] [address] [address] Juventino Howe MD [address] [place] [address] 12/28/2024 2:45 PM ORIENTATION & MOBILITY SPECIALIST Office Visit [facility] Endocrinology [address] [place] [address] Sheldon Canales MD [address] [facility] [address] [place] [address] 01/04/2025 2:00 PM ORIENTATION & MOBILITY SPECIALIST Office Visit [facility] Neurology [address] [place] [address] Juventino Howe MD [address] [place] [address] Bobbi Davalos MD [address] [place] [address] 02/26/2025 3:10 PM ORIENTATION & MOBILITY SPECIALIST Office Visit [facility] Gastroenterology [place] [address] [place] [address] Suzette Cody MD [address] [address] [place] [address] 03/28/2025 2:30 PM ORIENTATION & MOBILITY SPECIALIST Office Visit [facility] Colon and Rectal Surgery [address] [place] [address] [place] [address] [place] [address] 10/30/2025 3:00 PM CDT Office Visit [facility] Pulmonology [facility] [address] [facility] [address] [place] [address] Everett Cam MD [address] [facility] [address] [place] [address] documented as of this encounter Procedures Procedure Name Priority Date/Time Associated Diagnosis Comments GLIADIN ABS IGG/IGA Routine 05/02/2007 5 :01 PM CDT MISCELLANEOUS LAB TEST Routine 8 5:01 PM CDT TRANSGLUTAMINASE IGA ANTIBODY Routine 05/02/2007 5:01 PM CDT HELICOBACTER PYLORI IGM Routine 05/02/19 08 5:01 PM CDT HELICOBACTER PYLORI IGG Routine 05/02/19 08 5:01 PM CDT IGA Routine 05/02/2007 5:01 PM CDT documented in this encounter Results * TRANSGLUTAMINASE IGA ANTIBODY (05/02/2007 5:01 PM CDT) TRANSGLUTAMINASE IGA AB <3 <5 U/mL [facility] Comment: Reference range: <5 U/mL Negative 5-8 U/mL Equivocal >8 U/mL Positive Lab test performed by: [facility] [id number] [place], [place] KHADIJAH HENDRICKSON MD Blood specimen (specimen) 05/02/2007 5:01 PM CDT 05/02/2007 5:16 PM CDT us Lynne Escobar MD CHEMISTRY ORDERABLES Final Resu lt Performing Organization Address City/[facility]/ZIP Co de Phone Number [facility] [address] [place] [address] * MISCELLANEOUS LAB TEST (05/02/2007 5:01 PM CDT) SPECIMEN TYPE Blood [facility] TEST NAME H. PYLORI IGA ANTIBODY [facility] MISCELLANEOUS LAB TEST Name of Test: HELICOBACTER PYLORI IgA AB Test Result: <0.89 Index Reference Range: Negative: <0.89 Equivocal: 0.89-0.99 Positive: >=1.00 Test Performed By: [place]/[facility] Specimen of unknown material (specimen) 05/02/2007 5:01 PM CDT 05/02/2007 5:16 PM CDT Narrative [facility] - 05/05/2007 10:38 AM CDT Name of test: H pylori IgA (red top) us Lynne Escobar MD CHEMISTRY ORDERABLES Edited Performing Organization Address [facility] Co de Phone Number [facility] [address] [place] [address] * (ABNORMAL) HELICOBACTER PYLORI IGM (05/02/2007 5:01 PM CDT) H. PYLORI IGM INDEX 1.3(H) <0.8 Index [facility] Comment: Reference Range: <0.8 Negative 0.8-0.9 Equivocal >0.9 Positive H. pylori serology may result in false positives, especially in isolated IgM H. pylori positive patients. A Urea Breath test or stool antigen test for H. pylori should be considered if clinically indicated. This test was developed and its performance characteristics have been determined by [facility] [place]. It has not been cleared or approved by the U.S. Food and Drug Administration. The FDA has determined that such clearance or approval is not necessary. Performance characteristics refer to the analytical performance of the test. Lab test performed by: [facility] [id number] [place], [place] KHADIJAH HENDRICKSON MD H. PYLORI IGM Positive( A) Negative [facility] Blood specimen (specimen) 05/02/2007 5:01 PM CDT 05/02/2007 5:16 PM CDT Lynne Escobar MD CHEMISTRY ORDERABLES Final Resu lt Performing Organization Address [facility] Co de Phone Number [facility] [address] [place] [address] * HELICOBACTER PYLORI IGG (05/02/2007 5:01 PM CDT) Pathologist [facility] H. PYLORI IGG <0.91 EIA Value [facility] Comment: REFERENCE RANGE: < 0.91 NEGATIVE: [...] OF THE PATIENT. Lab test performed by: [facility] [address] [place] [address] DION ROSEN MD Blood specimen (specimen) 05/02/2007 5:01 PM CDT 05/02/2007 5:16 PM CDT Lynne Escobar MD CHEMISTRY ORDERABLES COM Final Result Performing Organization Address [facility] Co de Phone Number [facility] [address] [place] [address] * IGA (05/02/2007 5:01 PM CDT) IGA 190.2 87.0 - 421.0 mg/dL [facility] Blood specimen (specimen) 05/02/2007 5:01 PM CDT 05/02/2007 9:49 PM CDT Lynne Escobar MD CHEMISTRY ORDERABLES Final Resu lt Performing Organization Address [facility] Co de Phone Number [facility] [address] [place] [address] * GLIADIN ABS IGG/IGA (05/02/2007 5:01 PM CDT) GLIADIN IGG AB <3 <11 U/mL [facility] Comment: Reference Range: <11 U/mL Negative 11-17 U/mL Equivocal >17 U/mL Positive GLIADIN IGA AB 4 <11 U/mL [facility] Comment: Reference Range: <11 U/mL Negative 11-17 U/mL Equivocal >17 U/mL Positive Lab test performed by: [facility] [address] [address] KHADIJAH HENDRICKSON MD Blood specimen (specimen) 05/02/2007 5:01 PM CDT 05/02/2007 5:16 PM CDT us Lynne Escobar MD CHEMISTRY ORDERABLES Final Resu lt Performing Organization Address [facility] Co de Phone Number [facility] [address] [place], [place] [address] documented in this encounter Visit Diagnoses Diagnosis Heartburn documented in this encounter Additional Health Concerns Infection Onset Date Last Indicated Resolved Time R/O Respiratory 01/11/2023 01/11/2023 01/11/2023 7 :48 PM ORIENTATION & MOBILITY SPECIALIST R/O Respiratory 02/19/2024 02/19/2024 02/19/2024 1 1:21 AM ORIENTATION & MOBILITY SPECIALIST Influenza 02/19/2024 02/19/2024 02/26/2024 1:16 AM ORIENTATION & MOBILITY SPECIALIST R/O Respiratory 03/13/2024 03/13/2024 03/13/2024 4 :20 PM ORIENTATION & MOBILITY SPECIALIST Human Metapneumovirus 03/13/2024 03/13/20242024 1:16 AM ORIENTATION & MOBILITY SPECIALIST R/O C. diff 03/13/2024 03/13/2024 03/14/2024 8:00 PM ORIENTATION & MOBILITY SPECIALIST R/O C. diff 03/14/2024 03/14/2024 03/15/2024 6:17 PM ORIENTATION & MOBILITY SPECIALIST documented as of this encounter Care Teams Senior Application Software Engineer Relationship Specialty Start Date End Date Juventino Howe MD [address] [facility] [address] [place] [address] PCP - General Internal Medicine 11/04/11 documented as of this encounter
--- OUTSIDE RECORDS SUMMARY | 2024-12-07 18:06 | XMS_ITS | Encounter Summary ---
Author Organization [facility] Address [address] [place] [address] Care Team Providers Care Lead Infrastructure Architect Name Role Phone Juventino Howe MD Primary Care Provider [phone] Encounter Details Date Type Department Care Team (Late st Contact Info) Description 04/08/2008 Outpatient Historical [facility] Lynne Escobar MD [address] [place] [address] Social History Tobacco Use Types Packs/Day Years Used Date Smoking Tobacco: Never Assessed Comments Unknown Sex and Gender Information Value Date Recorded Sex Assigned at Not on file Legal Sex Female 3:38 AM HANDCREW FOREMAN Gender Identity Not on file Sexual Orientation Not on file documented as of this encounter Plan of Treatment Upcoming Encounters Date Type Department Care Team (Late st Contact Info) Description 12/12/2024 4:30 PM CDT Appointment [facility] Therapy [facility] [place] [address] [facility] [address] [place] [address] Cata Terry, [place] [address] [place] [address] Maegan Duncan, Physical Therapist 12/19/2024 9:30 AM HANDCREW FOREMAN [facility]ment [facility] Rad[facility] S [facility] [address] [place] [address] Anselmo Durham MD 607 [facility] [address] [place] [address] 12/19/2024 10:40 AM HANDCREW FOREMAN Office Visit [facility] EAR, NOSE AND THROAT [facility] [address] [facility] [address] [place] [address] Anselmo Durham MD [address] [facility] [address] [place] [address] 12/20/2024 2:00 PM HANDCREW FOREMAN Office Visit [facility] Internal Medicine Medical [place] [address] [facility] [address] [address] Juventino Howe MD [address] [facility] [address] [place] [address] 12/28/2024 2:45 PM HANDCREW FOREMAN Office Visit [facility] Endocrinology [address] [facility] [address] [place] [address] Sheldon Canales MD [address] [facility] [address] [place] [address] 01/04/2025 2:00 PM HANDCREW FOREMAN Office Visit [facility] Neurology [address] [facility] [address] [facility] [address] [place] [address] Juventino Howe MD [address] [facility] [address] [place] [address] Bobbi Davalos MD [address] [place] [address] 02/26/2025 3:10 PM HANDCREW FOREMAN Office Visit [facility] Gastroenterology [place] [address] [place] [address] Suzette Cody MD [address] [place] [address] 03/28/2025 2:30 PM HANDCREW FOREMAN Office Visit [facility] Colon and Rectal Surgery [address] [place] [address] [place] [address] [place] [address] 10/30/2025 3:00 PM CDT Office Visit [facility] Pulmonology [facility] [address] [place] [address] Everett Cam MD [address] [place] [address] documented as of this encounter Visit Diagnoses Not on filedocumented in this encounter Additional Health Concerns Infection Onset Date Last Indicated Resolved Time R/O Respiratory 01/11/2023 01/11/2023 01/11/2023 7 :48 PM HANDCREW FOREMAN R/O Respiratory 02/19/2024 02/19/2024 02/19/2024 1 1:21 AM HANDCREW FOREMAN Influenza 02/19/2024 02/19/2024 02/26/2024 1:16 AM HANDCREW FOREMAN R/O Respiratory 03/13/2024 03/13/2024 03/13/2024 4 :20 PM HANDCREW FOREMAN Human Metapneumovirus 03/13/2024 03/13/20242024 1:16 AM HANDCREW FOREMAN R/O C. diff 03/13/2024 03/13/2024 03/14/2024 8:00 PM HANDCREW FOREMAN R/O C. diff 03/14/2024 03/14/2024 03/15/2024 6:17 PM HANDCREW FOREMAN documented as of this encounter Care Teams Lead Infrastructure Architect Relationship Specialty Start Date End Date Juventino Howe MD [address] [place] [address] PCP - General Internal Medicine 9/19/12 documented as of this encounter
--- OUTSIDE RECORDS SUMMARY | 2024-12-07 18:06 | XMS_ITS | Encounter Summary ---
Author Organization [facility] Address [address] [place] [address] Care Team Providers Care Director Of Convention Services Name Role Phone uJventino Howe MD Primary Care Provider [phone] Encounter Details Date Type Department Care Team (Latest Contact Info) Description 10/31/2007 Outpatient Historical [facility] Lynne Escobar MD [address] [place] [address] Flatulence, Eructation, and Gas Pain Social History Tobacco Use Types Packs/Day Years Used Date Smoking Tobacco: Never Assessed Comments Unknown Sex and Gender Information Value Date Recorded Sex Assigned at Not on file Legal Sex Female 3:38 AM HOPPER OPERATOR Gender Identity Not on file Sexual Orientation Not on file documented as of this encounter Plan of Treatment Upcoming Encounters Date Type Department Care Team (Late st Contact Info) Description 12/12/2024 4:30 PM CDT Appointment [facility] [place] [address] [facility] [address] [place] [address] Cata Terry, [place] [address] [place] [address] Maegan Duncan, Physical Therapist 12/19/2024 9:30 AM HOPPER OPERATOR Appointment [facility] S [facility] [address] [place] [address] Anselmo Durham MD [address] [facility] [address] [place] [address] 12/19/2024 10:40 AM HOPPER OPERATOR Office Visit [facility] EAR, NOSE AND THROAT [facility] [address] [place] [address] Anselmo Durham MD [address] [facility] [address] [place] [address] 12/20/2024 2:00 PM HOPPER OPERATOR Office Visit [facility] Internal Medicine Medical [place] [address] [address] Juventino Howe MD [address] [place] [address] 12/28/2024 2:45 PM HOPPER OPERATOR Office Visit [facility] Endocrinology [address] [place] [address] Sheldon Canales MD [address] [facility] [address] [place] [address] 01/04/2025 2:00 PM HOPPER OPERATOR Office Visit [facility] Neurology [address] [place] [address] Juventino Howe MD [address] [place] [address] Bobbi Davalos MD [address] [place] [address] 02/26/2025 3:10 PM HOPPER OPERATOR Office Visit [facility] Gastroenterology [address] [address] [place] [address] Suzette Cody MD [address] [place] [address] 03/28/2025 2:30 PM HOPPER OPERATOR Office Visit [facility] Colon and Rectal Surgery [address] [place] [address] [place] [address] [place] [address] 10/30/2025 3:00 PM CDT Office Visit [facility] Pulmonology [facility] [address] [facility] [address] [place] [address] Everett Cam MD [address] [facility] [address] [place] [address] documented as of this encounter Procedures Procedure Name Priority Date/Time Associated Diagnosis Comments NM HEPATOBIL W PHARM INTERV Timed Study 10/31/2007 10:26 AM CDT documented in this encounter Results * NM HEPATOBIL W EJECT FRACTION (10/31/2007 10:26 AM CDT) Anatomical Region Laterality Modality Abdomen Other 10/31/2007 10:2 6 AM CDT Narrative 10/31/2007 11:57 AM CDT [facility] [address] [place], [place] [address] Admit Date: 10/31/2007 DUYEN OROSCO Sex: F Admit Prov: LYNNE ESCOBAR Date: 1960 Primary Care Prov: CMRN: [id number] Room: [facility] SSN: [id number] IMAGING SERVICES Ordering Prov: N/A Accession Number: [id number] Interpretation Hepatobiliary imaging with CCK History: 47-year-old [...] Procedure Note Catrina Aranda MD - 10/31/2007 [facility] [address] [place] [address] Admit Date: 10/31/2007 DUYEN OROSCO Sex: F Admit Prov: LYNNE ESCOBAR Date: 1960 Primary Care Prov: CMRN: [id number] Room: [facility] SSN: [id number] IMAGING SERVICES Ordering Prov: N/A Interpretation Hepatobiliary [...] Electronically signed by: CATRINA ARANDA 10/31/2007 11:55 Lynne Escobar MD NM ORDERABLES Final Result documented in this encounter Visit Diagnoses Diagnosis Flatulence, eructation, and gas pain documented in this encounter Additional Health Concerns Infection Onset Date Last Indicated Resolved Time R/O Respiratory 01/11/2023 01/11/2023 01/11/2023 7 :48 PM HOPPER OPERATOR R/O Respiratory 02/19/2024 02/19/2024 02/19/2024 1 1:21 AM HOPPER OPERATOR Influenza 02/19/2024 02/19/2024 02/26/2024 1:16 AM HOPPER OPERATOR R/O Respiratory 03/13/2024 03/13/2024 03/13/2024 4 :20 PM HOPPER OPERATOR Human Metapneumovirus 03/13/2024 03/13/20242024 1:16 AM HOPPER OPERATOR R/O C. diff 03/13/2024 03/13/2024 03/14/2024 8:00 PM HOPPER OPERATOR R/O C. diff 03/14/2024 03/14/2024 03/15/2024 6:17 PM HOPPER OPERATOR documented as of this encounter Care Teams Director Of Convention Services Relationship Specialty Start Date End Date Juventino Howe MD [address] [facility] [address] [place] [address] PCP - General Internal Medicine 11/04/11 documented as of this encounter
--- OUTSIDE RECORDS SUMMARY | 2024-12-07 18:06 | XMS_ITS | Encounter Summary ---
Author Organization [facility] Address [address] [place] [address] Care Team Providers Care Flour Inspector Name Role Phone Juventino Howe MD Primary Care Provider [phone] Encounter Details Date Type Department Care Team (Latest Contact Info) Description 01/02/2008 Outpatient Historical HIS [facility] Lynne Navarro MD [address] [place] [address] Esophageal Reflux Social History Tobacco Use Types Packs/Day Years Used Date Smoking Tobacco: Never Assessed Comments Unknown Sex and Gender Information Value Date Recorded Sex Assigned at Not on file Legal Sex Female 3:38 AM OPERATOR COMMAND SUPPORT [employer] Gender Identity Not on file Sexual Orientation Not on file documented as of this encounter Plan of Treatment Upcoming Encounters Date Type Department Care Team (Late st Contact Info) Description 12/12/2024 4:[address] [facility] [address] [place] [address] Cata Terry, [place] [address] [place] [address] Maegan Duncan, Physical Therapist 12/19/2024 9:30 AM OPERATOR COMMAND SUPPORT SYSTEMS [facility] S [facility] [address] [place] [address] Anselmo Durham MD [address] [facility] [address] [place] [address] 12/19/2024 10:40 AM OPERATOR COMMAND SUPPORT SYSTEMS Office Visit [facility] EAR, NOSE AND THROAT [facility] [address] [facility] [address] [place] [address] Anselmo Durham MD [address] [facility] [address] [place] [address] 12/20/2024 2:00 PM OPERATOR [employer]PPORT [employer] Office Visit [facility] Internal Medicine Medical [place] [address] [address] Juventino Howe MD [address] [place] [address] 12/28/2024 2:45 PM OPERATOR [employer]PPORT [employer] Office Visit [facility] Endocrinology [address] [facility] [address] [place] [address] Sheldon Canales MD [address] [facility] [address] [place] [address] 01/04/2025 2:00 PM OPERATOR [employer] Office Visit [facility] Neurology [address] [place] [address] Juventino Howe MD [address] [place] [address] Bobbi Davalos MD [address] [place] [address] 02/26/2025 3:10 PM OPERATOR [employer] SUPPORT [employer]S Office Visit [facility] Gastroenterology [address] [place] [address] Suzette Cody MD [address] [place] [address] 03/28/2025 2:30 PM OPERATOR COMMAND SUPPORT [employer]S Office Visit [facility] Colon and Rectal Surgery [address] [place] [address] [place] [address] [place] [address] 10/30/2025 3:00 PM CDT Office Visit [facility] Pulmonology [facility] [address] [facility] [address] [facility] [address] [place] [address] Everett Cam MD [address] [facility] [address] [place] [address] documented as of this encounter Procedures Procedure Name Priority Date/Time Associated Diagnosis Comments CBC WITH DIFFERENTIAL Routine 01/02/2008 11:29 AM OPERATOR [employer] VITAMIN D 25 HYDROXY Routine 01/02/2008 11:29 AM OPERATOR [employer] SEDIMENTATION RATE Routine 01/02/2008 11 :29 AM OPERATOR [employer] C-REACTIVE PROTEIN Routine 01/02/2008 11 :29 AM OPERATOR [employer] PHOSPHORUS Routine 01/02/2008 11:29 AM OPERATOR [employer] MAGNESIUM LEVEL Routine 01/02/2008 11:29 AM OPERATOR [employer] VITAMIN B12 LEVEL Routine 01/02/2008 11: 29 AM OPERATOR [employer] COMPREHENSIVE METABOLIC PANEL Routine 01/02/2008 11:29 AM OPERATOR COMMAND [employer]PPORT [employer] documented in this encounter Results * (ABNORMAL) COMPREHENSIVE METABOLIC PANEL (01/02/2008 11:29 AM OPERATOR COMMAND SUPPORT SYSTEMS) CHLORIDE 101 96 - 108 mmol/L [facility] CREATININE 0.75 0.51 - 0.95 mg/dL [facility] ALT 35(H) 0 - 31 U/L [facility] SODIUM 139 135 - 145 mmol/L [facility] ALKALINE PHOSPHATASE 123(H) 35 - 104 U/L [facility] CO2 27 22 - 30 mmol/L [facility] BILIRUBIN TOTAL 0.3 0.2 - 1.0 mg/dL [facility] POTASSIUM 4.0 3.5 - 4.9 mmol/L [facility] TOTAL PROTEIN 7.4 6.3 - 8.6 g/dL [facility] GLUCOSE 87 65 - 99 mg/dL [facility] AST 29 12 - 32 U/L [facility] BUN 12 6 - 20 mg/dL [facility] CALCIUM 10.0 8.6 - 10.2 mg/dL [facility] ALBUMIN 4.5 3.4 - 4.8 g/dL [facility] GFR, >60 >=60 mL/min/1. 7 sq meter [facility] GFR >60 >=60 mL/min/1. 7 sq meter [facility] Comment: Modification of Diet in Renal Disease (MDRD) study formula. Estimated GFR rate interpretative information for both Americans and non- Americans is available on the [facility] Intranet at: [email or web address] Select: Lab Policies and Procedures Select: Reference Ranges - GFR Blood specimen (specimen) 01/02/2008 11:29 AM OPERATOR COMMAND SUPPORT SYSTEMS 01/02/2008 11:56 AM OPERATOR COMMAND SUPPORT [employer]S Lynne Escobar MD CHEMISTRY ORDERABLES Edited INTERFACE SYSTEM Refer to clinic/hospital department [facility] CLIA# [id number] [address] [place] [address] * SEDIMENTATION RATE (01/02/2008 11:29 AM OPERATOR COMMAND SUPPORT SYSTEMS) ESR (SEDIMENTATION RATE) 14 0 - 20 mm/hr [facility] Blood specimen (specimen) 01/02/2008 11:29 AM OPERATOR COMMAND SUPPORT [employer]S 01/02/2008 11:56 AM OPERATOR COMMAND SUPPORT [employer] us Lynne Escobar MD HEMATOLOGY ORDERABLES Final Res ult Performing Organization Address [facility] de Phone Number INTERFACE SYSTEM Refer to clinic/hospital department [facility] CLIA# [id number] [address] [place] [address] * VITAMIN D 25 HYDROXY (01/02/2008 11:29 AM OPERATOR COMMAND SUPPORT SYSTEMS) VITAMIN D, 25 OH, D3 21 ng/mL [facility] VITAMIN D, 25 OH, D2 <4 ng/mL [facility] Comment: 25-OHD3 indicates both endogenous production and supplementation. 25-OHD2 is an indicator of exogenous sources such as diet or supplementation. Therapy is based on measurement of Total 25-OHD, with levels <20 ng/mL indicative of Vitamin D deficiency while levels between 20 ng/mL and 30 ng/mL suggest insufficiency. Optimal levels are >30 ng/mL. Lab test performed by: [employer] [facility] [address] [place] [address] PERLITA ARNOLD MD VITAMIN D, 25 OH, TOTAL 21 20 - 100 ng/mL [facility] Blood specimen (specimen) 01/02/2008 11:29 AM OPERATOR COMMAND SUPPORT SYSTEMS 01/02/2008 11:56 AM OPERATOR COMMAND SUPPORT SYSTEMS us Lynne Escobar MD CHEMISTRY ORDERABLES Final Resu lt Performing Organization Address [facility] Co de Phone Number INTERFACE SYSTEM Refer to clinic/hospital department [facility] CLIA# [id number] [address] [place] [address] * VITAMIN B12 (01/02/2008 11:29 AM OPERATOR COMMAND SUPPORT SYSTEMS) VITAMIN B12 464 211 - 946 pg/mL [facility] Comment: It has been reported that between 5 to 10% of patients with values between 200 and 400 pg/mL may experience neuropsychiatric and hematologic abnormalities due to occult B12 deficiency. Less than 1% of patients with values above 400 pg/mL will have symptoms. Blood specimen (specimen) 01/02/2008 11:29 AM OPERATOR COMMAND SUPPORT SYSTEMS 01/02/2008 11:56 AM OPERATOR COMMAND SUPPORT [employer] us Lynne Escobar MD CHEMISTRY ORDERABLES Final Resu lt Performing Organization Address [facility] Phone Number INTERFACE SYSTEM Refer to clinic/hospital department [facility] CLIA# [id number] [address] [place] [address] * PHOSPHORUS (01/02/2008 11:29 AM OPERATOR COMMAND SUPPORT SYSTEMS) PHOSPHORUS 3.4 2.5 - 4.5 mg/dL [facility] Blood specimen (specimen) 01/02/2008 11:29 AM OPERATOR COMMAND SUPPORT SYSTEMS 01/02/2008 11:56 AM OPERATOR COMMAND SUPPORT [employer] us Lynne Escobar MD CHEMISTRY ORDERABLES Final Resu lt Performing Organization Address [facility] de Phone Number INTERFACE SYSTEM Refer to clinic/hospital department [facility] CLIA# [id number] [address] [place] [address] * MAGNESIUM LEVEL (01/02/2008 11:29 AM OPERATOR COMMAND [employer]PPORT [employer]) MAGNESIUM 2.1 1.5 - 2.5 mg/dL [facility] Blood specimen (specimen) 01/02/2008 11:29 AM OPERATOR COMMAND SUPPORT [employer]S 01/02/2008 11:56 AM OPERATOR [employer]PPORT [employer] us Lynne Escobar MD CHEMISTRY ORDERABLES Final Resu lt Performing Organization Address City/[facility] Co de Phone Number INTERFACE SYSTEM Refer to clinic/hospital department [facility] CLIA# [id number] [address] [place] [address] * C-REACTIVE PROTEIN (01/02/2008 11:29 AM OPERATOR COMMAND SUPPORT SYSTEMS) [facility] CRP <0.2 0.0 - 0.8 mg/dL [facility] Blood specimen (specimen) 01/02/2008 11:29 AM OPERATOR COMMAND SUPPORT [employer]S 01/02/2008 11:56 AM OPERATOR COMMAND SUPPORT [employer] us Lynne Escobar MD CHEMISTRY ORDERABLES Final Resu lt Performing Organization Address [facility] de Phone Number INTERFACE SYSTEM Refer to clinic/hospital department [facility] CLIA# [id number] [address] [place] [address] * (ABNORMAL) CBC WITH DIFFERENTIAL (01/02/2008 11:29 AM OPERATOR COMMAND SUPPORT SYSTEMS) [facility] PLATELETS 306 140 - 350 K/uL [facility] HEMOGLOBIN 15.0(H) 11.8 - 14.8 g/dL [facility] RDW 13.0 11.5 - 14.5 % [facility] WBC 9.9(H) 4.0 - 9.8 K/uL [facility] MCH 32.8(H) 27.2 - 32.6 pg [facility] MPV 11.2 9.3 - 12.4 fL [facility] HEMATOCRIT 43.2 35.5 - 44.0 % [facility] RDW-STDEV 44.7 37.1 - 48.7 fL [facility] RBC 4.57 3.90 - 4.90 M/uL [facility] MCHC 34.7 31.5 - 35.5 % [facility] MCV 94.5 82.0 - 99.0 fL [facility] EOSINOPHILS 4 0 - 7 % [facility] EOSINOPHIL ABSOLUTE 0.37 0.00 - 0.70 K/uL [facility] LYMPHOCYTES 32 16 - 45 % [facility] LYMPHOCYTE ABSOLUTE 3.21 0.70 - 4.50 K/uL [facility] BASOPHILS 1 0 - 2 % [facility] BASOPHILS ABSOLUTE 0.05 0.00 - 0.20 K/uL [facility] MONOCYTES 5 3 - 13 % [facility] MONOCYTE ABSOLUTE 0.53 0.10 - 1.30 K/uL [facility] NEUTROPHILS 58 45 - 70 % [facility] NEUTROPHIL ABSOLUTE 5.76 1.90 - 7.00 K/uL [facility] Blood specimen (specimen) 01/02/2008 11:29 AM OPERATOR COMMAND [employer]PPORT [employer]S 01/02/2008 11:56 AM OPERATOR [employer] Lynne Escobar MD HEMATOLOGY ORDERABLES Edited INTERFACE SYSTEM Refer to clinic/hospital department [facility] CLIA# [id number] [address] [facility] CREWILFREDO [place]LAKELY, [place] [address] documented in this encounter Visit Diagnoses Diagnosis Esophageal reflux documented in this encounter Additional Health Concerns Infection Onset Date Last Indicated Resolved Time R/O Respiratory 01/11/2023 01/11/2023 01/11/2023 7 :48 PM OPERATOR COMMAND SUPPORT SYSTEMS R/O Respiratory 02/19/2024 02/19/2024 02/19/2024 1 1:21 AM OPERATOR [employer] Influenza 02/19/2024 02/19/2024 02/26/2024 1:16 AM OPERATOR [employer] R/O Respiratory 03/13/2024 03/13/2024 03/13/2024 4 :20 PM OPERATOR [employer] Human Metapneumovirus 03/13/2024 03/13/20242024 1:16 AM OPERATOR [employer] R/O C. diff 03/13/2024 03/13/2024 03/14/2024 8:00 PM OPERATOR [employer] R/O C. diff 03/14/2024 03/14/2024 03/15/2024 6:17 PM OPERATOR [employer] documented as of this encounter Care Teams Flour Inspector Relationship Specialty Start Date End Date Juventino Howe MD [address] [facility] [address] [place] [address] PCP - General Internal Medicine 11/04/11 documented as of this encounter
--- OUTSIDE RECORDS SUMMARY | 2024-12-07 18:06 | XMS_ITS | Encounter Summary ---
Author Organization [facility] Address [address] [place] [address] Care Team Providers Care Field Case Manager Name Role Phone Juventino Howe MD Primary Care Provider [phone] Encounter Details Date Type Department Care Team (Late st Contact Info) Description 01/03/2008 Outpatient Historical [facility] THERAPY S[place] Lynne Escobar MD [address] [place] [address] Social History Tobacco Use Types Packs/Day Years Used Date Smoking Tobacco: Never Assessed Comments Unknown Sex and Gender Information Value Date Recorded Sex Assigned at Not on file Legal Sex Female 3:38 AM ENGINE REPAIRER SERVICE Gender Identity Not on file Sexual Orientation Not on file documented as of this encounter Plan of Treatment Upcoming Encounters Date Type Department Care Team (Late st Contact Info) Description 12/12/2024 4:30 PM CDT Appointment [facility] [place] [address] [facility] [address] [place] [address] Cata Terry, [place] [address] [place] [address] Maegan Duncan, Physical Therapist 12/19/2024 9:30 AM ENGINE REPAIRER SERVICE Appointment [facility] Radiology [address] [facility] [address] [place] [address] Anselmo Durham MD 607 [facility] [address] [place] [address] 12/19/2024 10:40 AM ENGINE REPAIRER SERVICE Office Visit [facility] EAR, NOSE AND THROAT [facility] [address] [facility] [address] [place] [address] Anselmo Durham MD 607 [facility] [address] [place] [address] 12/20/2024 2:00 PM ENGINE REPAIRER SERVICE Office Visit [facility] Internal Medicine Medical [place] A [address] [address] Juventino Howe MD [address] [facility] [address] [place] [address] 12/28/2024 2:45 PM ENGINE REPAIRER SERVICE Office Visit [facility] Endocrinology [address] [place] [address] Sheldon Canales MD [address] [facility] [address] [place] [address] 01/04/2025 2:00 PM ENGINE REPAIRER SERVICE Office Visit [facility] Neurology [address] [place] [address] Juventino Howe MD [address] [place] [address] Bobbi Davalos MD [address] [place] [address] 02/26/2025 3:10 PM ENGINE REPAIRER SERVICE Office Visit [facility] Gastroenterology [address] [address] [place] [address] Suzette Cody MD [address] [place] [address] 03/28/2025 2:30 PM ENGINE REPAIRER SERVICE Office Visit [facility] Colon and Rectal Surgery [address] [place] [address] [place] [address] [place] [address] 10/30/2025 3:00 PM CDT Office Visit [facility] Pulmonology [facility] [address] [facility] [place] [address] Everett Cam MD [address] [place] [address] documented as of this encounter Visit Diagnoses Not on filedocumented in this encounter Additional Health Concerns Infection Onset Date Last Indicated Resolved Time R/O Respiratory 01/11/2023 01/11/2023 01/11/2023 7 :48 PM ENGINE REPAIRER SERVICE R/O Respiratory 02/19/2024 02/19/2024 02/19/2024 1 1:21 AM ENGINE REPAIRER SERVICE Influenza 02/19/2024 02/19/2024 02/26/2024 1:16 AM ENGINE REPAIRER SERVICE R/O Respiratory 03/13/2024 03/13/2024 03/13/2024 4 :20 PM ENGINE REPAIRER SERVICE Human Metapneumovirus 03/13/2024 03/13/20242024 1:16 AM ENGINE REPAIRER SERVICE R/O C. diff 03/13/2024 03/13/2024 03/14/2024 8:00 PM ENGINE REPAIRER SERVICE R/O C. diff 03/14/2024 03/14/2024 03/15/2024 6:17 PM ENGINE REPAIRER SERVICE documented as of this encounter Care Teams Field Case Manager Relationship Specialty Start Date End Date Juventino Howe MD [address] [place] [address] PCP - General Internal Medicine 9/19/12 documented as of this encounter
--- OUTSIDE RECORDS SUMMARY | 2024-12-07 18:07 | XMS_ITS | Patient Health Record ---
Author Organization [facility] [employer] Address [address] [address] Care Team Providers Care Director Of Sales Marketing Name Role Phone VALERIO CLEMENTE Unavailable [phone] Reason For Referral No Information Medications Medication SIG (Take, Route, Frequency, Duration) Notes Start Date End Date Status Xanax Active ZyrTEC Active Problems Problem Type SNOMED Code ICD Code Onset Dates Problem Status W/U Status Risk Notes Problem Irritable bowel syndrome (97173115) Irritable bowel syndrome (564.1) 0 confirmed Migratednikita Problem Backache (276519496) Unspecified backache (724.5) 0 confirmed Migratednikita Plan Of Treatment No Information Insurance Providers Payer Name Payer Address Payer Phone Subscriber Number Group Number Insured Name Patient Relationship to Insured Coverage Start Date Coverage End Date [employer] [address] [address] [place] [address] [id number] Duyen King Self - patient is the insured 6
--- OUTSIDE RECORDS SUMMARY | 2024-12-07 18:07 | XMS_ITS | Encounter Summary ---
Author Organization [facility] Address [address] [place] [address] Care Team Providers Care Storage Management Consultant Name Role Phone Juventino Howe MD Primary Care Provider [phone] Encounter Details Date Type Department Care Team (Latest Contact Info) Description 02/23/2008 Outpatient Historical [facility] Lynne Navarro MD [address] [place] [address] Flatulence, Eructation, and Gas Pain Social History Tobacco Use Types Packs/Day Years Used Date Smoking Tobacco: Never Assessed Comments Unknown Sex and Gender Information Value Date Recorded Sex Assigned at Not on file Legal Sex Female 3:38 AM LICENSED PLUMBER Gender Identity Not on file Sexual Orientation Not on file documented as of this encounter Plan of Treatment Upcoming Encounters Date Type Department Care Team (Late st Contact Info) Description 12/12/2024 4:30 PM CDT Appointment [facility] Therapy Services [place] [address] [facility] [address] [place] [address] Cata Terry, [place] [address] [place] [address] Maegan Duncan, Physical Therapist 12/19/2024 9:30 AM LICENSED PLUMBER Appointment [facility] Radiology [address] [place] [address] Anselmo Durham MD [address] [facility] [address] [place] [address] 12/19/2024 10:40 AM LICENSED PLUMBER Office Visit [facility] EAR, NOSE AND THROAT [facility] [address] [place] [address] Anselmo Durham MD [address] [facility] [address] [place] [address] 12/20/2024 2:00 PM LICENSED PLUMBER Office Visit [facility] Internal Medicine Medical [place] A [address] [address] Juventino Howe MD [address] [place] [address] 12/28/2024 2:45 PM LICENSED PLUMBER Office Visit [facility] Endocrinology [address] [place] [address] Sheldon Canales MD [address] [place] [address] 01/04/2025 2:00 PM LICENSED PLUMBER Office Visit [facility] Neurology [address] [place] [address] Juventino Howe MD [address] [place] [address] Bobbi Davalos MD [address] [place] [address] 02/26/2025 3:10 PM LICENSED PLUMBER Office Visit [facility] Gastroenterology [place] [address] [place] [address] Suzette Cody MD [address] [place] [address] 03/28/2025 2:30 PM LICENSED PLUMBER Office Visit [facility] Colon and Rectal Surgery [address] [place] [address] [place] [address] [place] [address] 10/30/2025 3:00 PM CDT Office Visit [facility] Pulmonology [facility] [address] [facility] [address] [place] [address] Everett Cam MD [address] [facility] [address] [place] [address] documented as of this encounter Procedures Procedure Name Priority Date/Time Associated Diagnosis Comments OCCULT BLOOD GUAIAC SCREEN, 1-3 CARDS Routine 02/25/2008 11:14 AM LICENSED PLUMBER documented in this encounter Results * OCCULT BLOOD, OUTPATIENT 1-3 CARDS (02/25/2008 11:14 AM LICENSED PLUMBER) OB #1, DATE/TIME COLLECTED 02/24/08 830am [facility] OB #2, DATE/TIME COLLECTED 02/24/08 9am [facility] OB #3, DATE/TIME COLLECTED [id number] 10am [facility] OCCULT BLOOD #1 Negative Negative [facility] OCCULT BLOOD #3 Negative Negative [facility] OCCULT BLOOD #2 Negative Negative [facility] Stool specimen (specimen) 02/25/2008 11:14 AM LICENSED PLUMBER 02/25/2008 11:22 AM LICENSED PLUMBER Narrative INTERFACE SYSTEM - 02/25/2008 12:05 PM LICENSED PLUMBER Spec # Lynne Escobar MD BODY FLUIDS AND STOOLS Final Re sult INTERFACE SYSTEM Refer to clinic/hospital department [facility] CLIA# [id number] [address] [place] [address] documented in this encounter Visit Diagnoses Diagnosis Flatulence, eructation, and gas pain documented in this encounter Additional Health Concerns Infection Onset Date Last Indicated Resolved Time R/O Respiratory 01/11/2023 01/11/2023 01/11/2023 7 :48 PM LICENSED PLUMBER R/O Respiratory 02/19/2024 02/19/2024 02/19/2024 1 1:21 AM LICENSED PLUMBER Influenza 02/19/2024 02/19/2024 02/26/2024 1:16 AM LICENSED PLUMBER R/O Respiratory 03/13/2024 03/13/2024 03/13/2024 4 :20 PM LICENSED PLUMBER Human Metapneumovirus 03/13/2024 03/13/20242024 1:16 AM LICENSED PLUMBER R/O C. diff 03/13/2024 03/13/2024 03/14/2024 8:00 PM LICENSED PLUMBER R/O C. diff 03/14/2024 03/14/2024 03/15/2024 6:17 PM LICENSED PLUMBER documented as of this encounter Care Teams Storage Management Consultant Relationship Specialty Start Date End Date Juventino Howe MD [address] [place] [address] PCP - General Internal Medicine 11/04/11 documented as of this encounter
--- OUTSIDE RECORDS SUMMARY | 2024-12-07 18:07 | XMS_ITS | Encounter Summary ---
Author Organization [facility] Address [address] [place] [address] Care Team Providers Care Assistant Director Of Plant Operations Name Role Phone Juventino Howe MD Primary Care Provider [phone] Encounter Details Date Type Department Care Team (Late st Contact Info) Description 02/04/2008 Outpatient Historical [facility] SATELLITE Lynne Escobar MD [address] [place] [address] Social History Tobacco Use Types Packs/Day Years Used Date Smoking Tobacco: Never Assessed Comments Unknown Sex and Gender Information Value Date Recorded Sex Assigned at Not on file Legal Sex Female 3:38 AM MANAGER COMMUNITY DEVELOPMENT Gender Identity Not on file Sexual Orientation Not on file documented as of this encounter Plan of Treatment Upcoming Encounters Date Type Department Care Team (Late st Contact Info) Description 12/12/2024 4:30 PM CDT Appointment [facility] Therapy Services [place] [address] [facility] [address] [place] [address] Cata Terry, [place] [address] [place] [address] Maegan Duncan, Physical Therapist 12/19/2024 9:30 AM MANAGER COMMUNITY DEVELOPMENT Appointment [facility] Radiology [address] [facility] [address] [place] [address] Anselmo Durham MD 607 [facility] [address] [place] [address] 12/19/2024 10:40 AM MANAGER COMMUNITY DEVELOPMENT Office Visit [facility] EAR, NOSE AND THROAT [facility] [address] [facility] [address] [place] [address] Anselmo Durahm MD 607 [facility] [address] [place] [address] 12/20/2024 2:00 PM MANAGER COMMUNITY DEVELOPMENT Office Visit [facility] Internal Medicine Medical [place] A [address] [address] Juventino Howe MD [address] [facility] [address] [place] [address] 12/28/2024 2:45 PM MANAGER COMMUNITY DEVELOPMENT Office Visit [facility] Endocrinology [address] [facility] [facility] [address] [place] [address] Sheldon Canales MD [address] [facility] [address] [place] [address] 01/04/2025 2:00 PM MANAGER COMMUNITY DEVELOPMENT Office Visit [facility] Neurology [address] [facility] [address] [place] [address] Juventino Howe MD [address] [facility] [facility] [address] [place] [address] Bobbi Davalos MD [address] [place] [address] 02/26/2025 3:10 PM MANAGER COMMUNITY DEVELOPMENT Office Visit [facility] Gastroenterology [address] [address] [place] [address] Suzette Cody MD [address] [place] [address] 03/28/2025 2:30 PM MANAGER COMMUNITY DEVELOPMENT Office Visit [facility] Colon and Rectal Surgery [address] [place] [address] [place] [address] [place] [address] 10/30/2025 3:00 PM CDT Office Visit [facility] Pulmonology [facility] [address] [place] [address] Everett Cam MD [address] [facility] [address] [place] [address] documented as of this encounter Visit Diagnoses Not on filedocumented in this encounter Additional Health Concerns Infection Onset Date Last Indicated Resolved Time R/O Respiratory 01/11/2023 01/11/2023 01/11/2023 7 :48 PM MANAGER COMMUNITY DEVELOPMENT R/O Respiratory 02/19/2024 02/19/2024 02/19/2024 1 1:21 AM MANAGER COMMUNITY DEVELOPMENT Influenza 02/19/2024 02/19/2024 02/26/2024 1:16 AM MANAGER COMMUNITY DEVELOPMENT R/O Respiratory 03/13/2024 03/13/2024 03/13/2024 4 :20 PM MANAGER COMMUNITY DEVELOPMENT Human Metapneumovirus 03/13/2024 03/13/20242024 1:16 AM MANAGER COMMUNITY DEVELOPMENT R/O C. diff 03/13/2024 03/13/2024 03/14/2024 8:00 PM MANAGER COMMUNITY DEVELOPMENT R/O C. diff 03/14/2024 03/14/2024 03/15/2024 6:17 PM MANAGER COMMUNITY DEVELOPMENT documented as of this encounter Care Teams Assistant Director Of Plant Operations Relationship Specialty Start Date End Date Juventino Howe MD [address] [facility] [address] [place] [address] PCP - General Internal Medicine 9/19/12 documented as of this encounter
--- OUTSIDE RECORDS SUMMARY | 2024-12-07 18:07 | XMS_ITS | Encounter Summary ---
Author Organization [facility] Address [address] [place] [address] Care Team Providers Care Compilation Clerk Name Role Phone Juventino Howe MD Primary Care Provider [phone] Encounter Details Date Type Department Care Team (Late st Contact Info) Description 06/11/2008 Outpatient Historical [facility] THERAPY S[place] Lynne Escobar MD [address] [place] [address] Social History Tobacco Use Types Packs/Day Years Used Date Smoking Tobacco: Never Assessed Comments Unknown Sex and Gender Information Value Date Recorded Sex Assigned at Not on file Legal Sex Female 3:38 AM POULTRY EVISCERATOR Gender Identity Not on file Sexual Orientation Not on file documented as of this encounter Plan of Treatment Upcoming Encounters Date Type Department Care Team (Late st Contact Info) Description 12/12/2024 4:30 PM CDT Appointment [facility] Therapy Services [place] [address] [facility] [address] [place] [address] Cata Terry, [place] [address] [place] [address] Maegan Duncan, Physical Therapist 12/19/2024 9:30 AM POULTRY EVISCERATOR [facility] Rad[facility] [address] [facility] [address] [place] [address] Anselmo Durham MD [address] [facility] [address] [place] [address] 12/19/2024 10:40 AM POULTRY EVISCERATOR Office Visit [facility] EAR, NOSE AND THROAT [facility] [address] [facility] [address] [place] [address] Anselmo Durham MD 607 [facility] [address] [place] [address] 12/20/2024 2:00 PM POULTRY EVISCERATOR Office Visit [facility] Internal Medicine Medical [place] A [address] [address] Juventino Howe MD [address] [facility] [address] [place] [address] 12/28/2024 2:45 PM POULTRY EVISCERATOR Office Visit [facility] Endocrinology [address] [facility] [address] [place] [address] Sheldon Canales MD [address] [facility] [address] [place] [address] 01/04/2025 2:00 PM POULTRY EVISCERATOR Office Visit [facility] Neurology [address] [facility] [address] [place] [address] Juventino Howe MD [address] [address] [place] [address] Bobbi Davalos MD [address] [place] [address] 02/26/2025 3:10 PM POULTRY EVISCERATOR Office Visit [facility] Gastroenterology [place] [address] [place] [address] Suzette Cody MD [address] [place] [address] 03/28/2025 2:30 PM POULTRY EVISCERATOR Office Visit [facility] Colon and Rectal Surgery [address] [place] [address] [place] [address] [place] [address] 10/30/2025 3:00 PM CDT Office Visit [facility] Pulmonology [facility] [address] [place] [address] Everett Cam MD [address] [place] [address] documented as of this encounter Visit Diagnoses Not on filedocumented in this encounter Additional Health Concerns Infection Onset Date Last Indicated Resolved Time R/O Respiratory 01/11/2023 01/11/2023 01/11/2023 7 :48 PM POULTRY EVISCERATOR R/O Respiratory 02/19/2024 02/19/2024 02/19/2024 1 1:21 AM POULTRY EVISCERATOR Influenza 02/19/2024 02/19/2024 02/26/2024 1:16 AM POULTRY EVISCERATOR R/O Respiratory 03/13/2024 03/13/2024 03/13/2024 4 :20 PM POULTRY EVISCERATOR Human Metapneumovirus 03/13/2024 03/13/20242024 1:16 AM POULTRY EVISCERATOR R/O C. diff 03/13/2024 03/13/2024 03/14/2024 8:00 PM POULTRY EVISCERATOR R/O C. diff 03/14/2024 03/14/2024 03/15/2024 6:17 PM POULTRY EVISCERATOR documented as of this encounter Care Teams Compilation Clerk Relationship Specialty Start Date End Date Juventino Howe MD [address] [place] [address] PCP - General Internal Medicine 9/19/12 documented as of this encounter
--- OUTSIDE RECORDS SUMMARY | 2024-12-07 18:07 | XMS_ITS | Encounter Summary ---
Author Organization [facility] Address [address] [place] [address] Care Team Providers Care Career Services Manager Name Role Phone Juventino Howe MD Primary Care Provider Encounter Details Date Type Department Care Team (Latest Contact Info) Description 02/20/2008 Outpatient Historical [facility] Lynne Navarro MD [address] [place] [address] Abdominal Pain, Right Lower Quadrant Social History Tobacco Use Types Packs/Day Years Used Date Smoking Tobacco: Never Assessed Comments Unknown Sex and Gender Information Value Date Recorded Sex Assigned at Not on file Legal Sex Female 3:38 AM PALLET REPAIRER Gender Identity Not on file Sexual Orientation Not on file documented as of this encounter Plan of Treatment Upcoming Encounters Date Type Department Care Team (Late st Contact Info) Description 12/12/2024 4:30 PM CDT Appointment [facility] Therapy Services [place] [address] [facility] [address] [place] [address] Cata Terry, [place] [address] [place] [address] Maegan Duncan, Physical Therapist 12/19/2024 9:30 AM PALLET REPAIRER Appointment [facility] Radiology S [facility] [address] [place] [address] Anselmo Durham MD [address] [facility] [address] [place] [address] 12/19/2024 10:40 AM PALLET REPAIRER Office Visit [facility] EAR, NOSE AND THROAT [facility] [address] [place] [address] Anselmo Durham MD [address] [place] [address] 12/20/2024 2:00 PM PALLET REPAIRER Office Visit [facility] Internal Medicine Medical [place] [address] [address] Juventino Howe MD [address] [place] [address] 12/28/2024 2:45 PM PALLET REPAIRER Office Visit [facility] Endocrinology [address] [place] [address] Sheldon Canales MD [address] [place] [address] 01/04/2025 2:00 PM PALLET REPAIRER Office Visit [facility] Neurology [address] [place] [address] Juventino Howe MD [address] [place] [address] Bobbi Davalos MD [address] [place] [address] 02/26/2025 3:10 PM PALLET REPAIRER Office Visit [facility] Gastroenterology [place] [address] [place] [address] Suzette Cody MD [address] [place] [address] 03/28/2025 2:30 PM PALLET REPAIRER Office Visit [facility] Colon and Rectal Surgery [address] [place] [address] [place] [address] [place] [address] 10/30/2025 3:00 PM CDT Office Visit [facility] Pulmonology [facility] [address] [place] [address] Everett Cam MD [address] [facility] [address] [place] [address] documented as of this encounter Procedures Procedure Name Priority Date/Time Associated Diagnosis Comments CBC WITH DIFFERENTIAL Routine 02/20/2008 11:18 AM PALLET REPAIRER COMPREHENSIVE METABOLIC PANEL Routine 02/20/2008 11:18 AM PALLET REPAIRER documented in this encounter Results * (ABNORMAL) COMPREHENSIVE METABOLIC PANEL (02/20/2008 11:18 AM PALLET REPAIRER) CHLORIDE 99 96 - 108 mmol/L [facility] CREATININE 0.69 0.51 - 0.95 mg/dL [facility] ALT 29 0 - 31 U/L [facility] SODIUM 137 135 - 145 mmol/L [facility] ALKALINE PHOSPHATASE 117(H) 35 - 104 U/L [facility] CO2 26 22 - 30 mmol/L [facility] BILIRUBIN TOTAL 0.3 0.2 - 1.0 mg/dL [facility] POTASSIUM 3.9 3.5 - 4.9 mmol/L [facility] TOTAL PROTEIN 7.2 6.3 - 8.6 g/dL [facility] GLUCOSE 92 65 - 99 mg/dL [facility] AST 27 12 - 32 U/L [facility] BUN 10 6 - 20 mg/dL [facility] CALCIUM 9.8 8.6 - 10.2 mg/dL [facility] ALBUMIN 4.5 3.4 - 4.8 g/dL [facility] GFR, >60 >=60 mL/min/1. 7 sq meter [facility] GFR >60 >=60 mL/min/1. 7 sq meter [facility] Comment: Modification of Diet in Renal Disease (MDRD) study formula. Estimated GFR rate interpretative information for both Americans and non- Americans is available on the [facility] [place] Intranet at: [email or web address] Select: Lab Policies and Procedures Select: Reference Ranges - GFR Blood specimen (specimen) 02/20/2008 11:18 AM PALLET REPAIRER 02/20/2008 11:25 AM PALLET REPAIRER Lynne Escobar MD CHEMISTRY ORDERABLES Edited INTERFACE SYSTEM Refer to clinic/hospital department [facility] CLIA# [id number] [address] [address] * (ABNORMAL) CBC WITH DIFFERENTIAL (02/20/2008 11:18 AM PALLET REPAIRER) RBC 4.70 3.90 - 4.90 M/uL [facility] MCHC 34.5 31.5 - 35.5 % [facility] MCV 94.9 82.0 - 99.0 fL [facility] PLATELETS 299 140 - 350 K/uL [facility] HEMOGLOBIN 15.4(H) 11.8 - 14.8 g/dL [facility] RDW 12.5 11.5 - 14.5 % [facility] WBC 9.2 4.0 - 9.8 K/uL [facility] MCH 32.8(H) 27.2 - 32.6 pg [facility] MPV 11.1 9.3 - 12.4 fL [facility] HEMATOCRIT 44.6(H) 35.5 - 44.0 % [facility] RDW-STDEV 43.0 37.1 - 48.7 fL [facility] NEUTROPHILS 63 45 - 70 % [facility] NEUTROPHIL ABSOLUTE 5.76 1.90 - 7.00 K/uL [facility] EOSINOPHILS 1 0 - 7 % [facility] EOSINOPHIL ABSOLUTE 0.11 0.00 - 0.70 K/uL [facility] LYMPHOCYTES 31 16 - 45 % [facility] LYMPHOCYTE ABSOLUTE 2.83 0.70 - 4.50 K/uL [facility] BASOPHILS 0 0 - 2 % [facility] BASOPHILS ABSOLUTE 0.03 0.00 - 0.20 K/uL [facility] MONOCYTES 5 3 - 13 % [facility] MONOCYTE ABSOLUTE 0.49 0.10 - 1.30 K/uL [facility] Blood specimen (specimen) 02/20/2008 11:18 AM PALLET REPAIRER 02/20/2008 11:26 AM PALLET REPAIRER us Lynne Escobar MD HEMATOLOGY ORDERABLES Edited INTERFACE SYSTEM Refer to clinic/hospital department [facility] CLIA# [id number] [address] [place] [address] documented in this encounter Visit Diagnoses Diagnosis Abdominal pain, right lower quadrant documented in this encounter Additional Health Concerns Infection Onset Date Last Indicated Resolved Time R/O Respiratory 01/11/2023 01/11/2023 01/11/2023 7 :48 PM PALLET REPAIRER R/O Respiratory 02/19/2024 02/19/2024 02/19/2024 1 1:21 AM PALLET REPAIRER Influenza 02/19/2024 02/19/2024 02/26/2024 1:16 AM PALLET REPAIRER R/O Respiratory 03/13/2024 03/13/2024 03/13/2024 4 :20 PM PALLET REPAIRER Human Metapneumovirus 03/13/2024 03/13/20242024 1:16 AM PALLET REPAIRER R/O C. diff 03/13/2024 03/13/2024 03/14/2024 8:00 PM PALLET REPAIRER R/O C. diff 03/14/2024 03/14/2024 03/15/2024 6:17 PM PALLET REPAIRER documented as of this encounter Care Teams Career Services Manager Relationship Specialty Start Date End Date Juventino Howe MD [address] [facility] [address] [place] [address] PCP - General Internal Medicine 11/04/11 documented as of this encounter
--- OUTSIDE RECORDS SUMMARY | 2024-12-07 18:07 | XMS_ITS | Encounter Summary ---
Author Organization [facility] Address [address] [place] [address] Care Team Providers Care Concrete Engineer Name Role Phone Juventino Howe MD Primary Care Provider [phone] Encounter Details Date Type Department Care Team (Latest Contact Info) Description 01/23/2008 Outpatient Historical [facility] Disla, Ehsan Alonzo MD NO ADDRESS ON FILE Unspecified Retention of Urine Social History Tobacco Use Types Packs/Day Years Used Date Smoking Tobacco: Never Assessed Comments Unknown Sex and Gender Information Value Date Recorded Sex Assigned at Not on file Legal Sex Female 3:38 AM PIPE ORGAN MECHANIC APPRENTICE Gender Identity Not on file Sexual Orientation Not on file documented as of this encounter Plan of Treatment Upcoming Encounters Date Type Department Care Team (Late st Contact Info) Description 12/12/2024 4:30 PM CDT Appointment [facility] Therapy Services [place] [address] [facility] [address] [place] [address] Cata Terry, [place] [address] [place], [place] [address] Maegan Duncan, Physical Therapist 12/19/2024 9:30 AM PIPE ORGAN MECHANIC APPRENTICE Appointment [facility] Radiology S [facility] [address] [place] [address] Anselmo Durham MD [address] [facility] [address] [place] [address] 12/19/2024 10:40 AM PIPE ORGAN MECHANIC APPRENTICE Office Visit [facility] [address] [facility] [address] [place] [address] Anselmo Durham MD [address] [facility] [address] [place] [address] 12/20/2024 2:00 PM PIPE ORGAN MECHANIC APPRENTICE Office Visit [facility] Internal Medicine Medical [place] [address] [address] Juventino Howe MD [address] [place] [address] 12/28/2024 2:45 PM PIPE ORGAN MECHANIC APPRENTICE Office Visit [facility] Endocrinology [address] [facility] [address] [place] [address] Sheldon Canales MD [address] [facility] [address] [place] [address] 01/04/2025 2:00 PM PIPE ORGAN MECHANIC APPRENTICE Office Visit [facility] Neurology [address] [facility] [address] [place] [address] Juventino Howe MD [address] [place] [address] Bobbi Davalos MD [address] [place] [address] 02/26/2025 3:10 PM PIPE ORGAN MECHANIC APPRENTICE Office Visit [facility] Gastroenterology [place] [address] [place] [address] Suzette Cody MD [address] [place] [address] 03/28/2025 2:30 PM PIPE ORGAN MECHANIC APPRENTICE Office Visit [facility] Colon and Rectal Surgery [address] [place] [address] [place] [address] [place] [address] 10/30/2025 3:00 PM CDT Office Visit [facility] Pulmonology [facility] [address] [facility] [address] [place] [address] Everett Cam MD [address] [facility] [facility] [address] [place] [address] documented as of this encounter Procedures Procedure Name Priority Date/Time Associated Diagnosis Comments BASIC METABOLIC PANEL Routine 01/23/2008 2:22 PM PIPE ORGAN MECHANIC APPRENTICE documented in this encounter Results * BASIC METABOLIC PANEL (01/23/2008 2:22 PM PIPE ORGAN MECHANIC APPRENTICE) CHLORIDE 103 96 - 108 mmol/L [facility] GLUCOSE 94 65 - 99 mg/dL [facility] SODIUM 141 135 - 145 mmol/L [facility] CALCIUM 9.7 8.6 - 10.2 mg/dL [facility] CO2 24 22 - 30 mmol/L [facility] CREATININE 0.68 0.51 - 0.95 mg/dL [facility] POTASSIUM 3.8 3.5 - 4.9 mmol/L [facility] BUN 10 6 - 20 mg/dL [facility] GFR, >60 >=60 mL/min/1.7 sq meter [facility] GFR >60 >=60 mL/min/1.7 sq meter [facility] Comment: Modification of Diet in Renal Disease (MDRD) study formula. Estimated GFR rate interpretative information for both Americans and non- Americans is available on the [facility] Intranet at: [email or web address] Select: Lab Policies and Procedures Select: Reference Ranges - GFR Blood specimen (specimen) 01/23/2008 2:22 PM PIPE ORGAN MECHANIC APPRENTICE 01/23/2008 2:38 PM PIPE ORGAN MECHANIC APPRENTICE Ehsan Disla MD CHEMISTRY ORDERABLES Edite d INTERFACE SYSTEM Refer to clinic/hospital department [facility] CLIA# [id number] [address] [facility] [place] [address] documented in this encounter Visit Diagnoses Diagnosis Retention of urine, unspecified documented in this encounter Additional Health Concerns Infection Onset Date Last Indicated Resolved Time R/O Respiratory 01/11/2023 01/11/2023 01/11/2023 7 :48 PM PIPE ORGAN MECHANIC APPRENTICE R/O Respiratory 02/19/2024 02/19/2024 02/19/2024 1 1:21 AM PIPE ORGAN MECHANIC APPRENTICE Influenza 02/19/2024 02/19/2024 02/26/2024 1:16 AM PIPE ORGAN MECHANIC APPRENTICE R/O Respiratory 03/13/2024 03/13/2024 03/13/2024 4 :20 PM PIPE ORGAN MECHANIC APPRENTICE Human Metapneumovirus 03/13/2024 03/13/20242024 1:16 AM PIPE ORGAN MECHANIC APPRENTICE R/O C. diff 03/13/2024 03/13/2024 03/14/2024 8:00 PM PIPE ORGAN MECHANIC APPRENTICE R/O C. diff 03/14/2024 03/14/2024 03/15/2024 6:17 PM PIPE ORGAN MECHANIC APPRENTICE documented as of this encounter Care Teams Concrete Engineer Relationship Specialty Start Date End Date Juventino Howe MD [address] [place] [address] PCP - General Internal Medicine 11/04/11 documented as of this encounter
--- OUTSIDE RECORDS SUMMARY | 2024-12-07 18:07 | XMS_ITS | Encounter Summary ---
Author Organization [facility] Address [address] [place] [address] Care Team Providers Care Transportation Sales Consultant Name Role Phone Juventino Howe MD Primary Care Provider [phone] Encounter Details Date Type Department Care Team (Latest Contact Info) Description 02/20/2008 Outpatient Historical [facility] Lee, Sulema Sherman MD NO ADDRESS ON FILE Lump or Mass in Breast Social History Tobacco Use Types Packs/Day Years Used Date Smoking Tobacco: Never Assessed Comments Unknown Sex and Gender Information Value Date Recorded Sex Assigned at Not on file Legal Sex Female 3:38 AM EMBOSSING MACHINE TENDER Gender Identity Not on file Sexual Orientation Not on file documented as of this encounter Plan of Treatment Upcoming Encounters Date Type Department Care Team (Late st Contact Info) Description 12/12/2024 4:30 PM CDT Appointment [facility] Therapy Services [place] [address] [facility] [address] [place] [address] Cata Terry, [place] [address] [place] [address] Maegan Duncan, Physical Therapist 12/19/2024 9:30 AM EMBOSSING MACHINE TENDER Appointment [facility] Radiology S [facility] [address] [place] [address] Anselmo Durham MD 607 [facility] [address] [place] [address] 12/19/2024 10:40 AM EMBOSSING MACHINE TENDER Office Visit [facility] EAR, NOSE AND THROAT [facility] [address] [facility] [address] [place] [address] Anselmo Durham MD [address] [facility] [address] [place] [address] 12/20/2024 2:00 PM EMBOSSING MACHINE TENDER Office Visit [facility] Internal Medicine Medical [place] [address] [address] Juventino Howe MD [address] [place] [address] 12/28/2024 2:45 PM EMBOSSING MACHINE TENDER Office Visit [facility] Endocrinology [address] [facility] [address] [place] [address] Sheldon Canales MD [address] [facility] [address] [place] [address] 01/04/2025 2:00 PM EMBOSSING MACHINE TENDER Office Visit [facility] Neurology [address] [facility] [address] [place] [address] Juventino Howe MD [address] [facility] [address] [place] [address] Bobbi Davalos MD [address] [place] [address] 02/26/2025 3:10 PM EMBOSSING MACHINE TENDER Office Visit [facility] Gastroenterology [place] [address] [place] [address] Suzette Cody MD [address] [place] [address] 03/28/2025 2:30 PM EMBOSSING MACHINE TENDER Office Visit [facility] Colon and Rectal Surgery [address] [place] [address] [place] [address] [place] [address] 10/30/2025 3:00 PM CDT Office Visit [facility] Pulmonology [facility] [address] [facility] [address] [place] [address] Everett Cam MD [address] [facility] [address] [place] [address] documented as of this encounter Procedures Procedure Name Priority Date/Time Associated Diagnosis Comments US BREAST UNI LEFT COMPLETE Routine 02/20/2008 1:20 PM EMBOSSING MACHINE TENDER MAMMO DIAGNOSTIC BILATERAL W OR WO CAD Routine 02/20/2008 1:20 PM EMBOSSING MACHINE TENDER documented in this encounter Results * US BREAST UNILATERAL LEFT (02/20/2008 1:20 PM EMBOSSING MACHINE TENDER) Anatomical Region Laterality Modality Breast Left Other 02/20/2008 1:20 PM EMBOSSING MACHINE TENDER Narrative 02/21/2008 7:25 AM EMBOSSING MACHINE TENDER [facility] [address] [place], [place] [address] Admit Date: 02/20/2008 DUYEN OROSCO Sex: F Admit Prov: SULEMA LEE Date: 1960 Primary Care Prov: CMRN: [id number] Room: JOVANILang SSN: [id number] IMAGING SERVICES Ordering Prov: SULEMA LEE Accession Number: [id number] Interpretation BILATERAL FULL FIELD DIGITAL DIAGNOSTIC MAMMOGRAMS WITH COMPUTER AIDED DIAGNOSIS AND LEFT BREAST ULTRASOUND 02/20/2008 History: Left breast lump. Comparison is made with the patient's previous mammograms from February 1999 from [facility], as well as the patient's previous left breast ultrasound performed here at [facility] in September 2007. Breast Composition: Scattered fibroglandular [...] CHELSIE SANTAMARIA 02/21/2008 07:24 Transcribed: 02/20/2008 22:06 [facility] Procedure Note Chelsie Santamaria - 02/21/2008 [facility] [address] [place], [place] [address] Admit Date: 02/20/2008 DUYEN OROSCO Sex: F Admit Prov: SULEMA LEE Date: 1960 Primary Care Prov: CMRN: [id number] Room: [facility] SSN: [id number] IMAGING SERVICES Ordering Prov: SULEMA LEE Interpretation BILATERAL FULL FIELD DIGITAL DIAGNOSTIC MAMMOGRAMS WITH COMPUTERAIDED DIAGNOSIS AND LEFT BREAST ULTRASOUND 02/20/2008 History: Left breast lump. Comparison is made with the patient's previous mammograms fromFebruary 1999 from [facility], as well as the patient's previousleft breast [facility]. Breast Composition: Scattered fibroglandular densities. [...] SANTAMARIA 02/21/2008 07:24 Transcribed: 02/20/2008 22:06 SDJ uSlema Lee MD ORDERABLES Final Result * MAMMO DIGITAL DIAG BILAT (02/20/2008 1:20 PM EMBOSSING MACHINE TENDER) Anatomical Region Laterality Modality Breast Bilateral Other 02/20/2008 1:20 PM EMBOSSING MACHINE TENDER Narrative 02/21/2008 7:25 AM EMBOSSING MACHINE TENDER [facility] [address] [place], [place] [address] Admit Date: 02/20/2008 DUYEN OROSCO Sex: F Admit Prov: SULEMA LEE Date: 1960 Primary Care Prov: CMRN: [id number] [facility]: [id number] IMAGING SERVICES Ordering Prov: SULEMA LEE Accession Number: [id number] Interpretation BILATERAL FULL FIELD DIGITAL DIAGNOSTIC MAMMOGRAMS WITH COMPUTER AIDED DIAGNOSIS AND LEFT BREAST ULTRASOUND 02/20/2008 History: Left breast lump. Comparison is made with the patient's previous mammograms from February 1999 from [facility], as well as the patient's previous left breast ultrasound performed here at [facility] in September 2007. Breast Composition: Scattered fibroglandular [...] CHELSIE SANTAMARIA 02/21/2008 07:24 Transcribed: 02/20/2008 22:06 [facility] Procedure Note Chelsie Santamaria - 02/21/2008 [facility] [address] [place], [place] [address] Admit Date: 02/20/2008 DUYEN OROSCO Sex: F Admit Prov: SULEMA LEE Date: 1960 Primary Care Prov: CMRN: [id number] Room: JANE SSN: [id number] IMAGING SERVICES Ordering Prov: SULEMA LEE Interpretation BILATERAL FULL FIELD DIGITAL DIAGNOSTIC MAMMOGRAMS WITH COMPUTERAIDED DIAGNOSIS AND LEFT BREAST ULTRASOUND 02/20/2008 History: Left breast lump. Comparison is made with the patient's previous mammograms fromFebruary 1999 from [facility], as well as the patient[facility]left [facility]. Breast Composition: Scattered fibroglandular densities. [...] CHELSIE SANTAMARIA 02/21/2008 07:24 Transcribed: 02/20/2008 22:06 CH[facility] Sulema Lee MD MAMMO ORDERABLES Final Resul t documented in this encounter Visit Diagnoses Diagnosis Lump or mass in breast documented in this encounter Additional Health Concerns Infection Onset Date Last Indicated Resolved Time R/O Respiratory 01/11/2023 01/11/2023 01/11/2023 7 :48 PM EMBOSSING MACHINE TENDER R/O Respiratory 02/19/2024 02/19/2024 02/19/2024 1 1:21 AM EMBOSSING MACHINE TENDER Influenza 02/19/2024 02/19/2024 02/26/2024 1:16 AM EMBOSSING MACHINE TENDER R/O Respiratory 03/13/2024 03/13/2024 03/13/2024 4 :20 PM EMBOSSING MACHINE TENDER Human Metapneumovirus 03/13/2024 03/13/20242024 1:16 AM EMBOSSING MACHINE TENDER R/O C. diff 03/13/2024 03/13/2024 03/14/2024 8:00 PM EMBOSSING MACHINE TENDER R/O C. diff 03/14/2024 03/14/2024 03/15/2024 6:17 PM EMBOSSING MACHINE TENDER documented as of this encounter Care Teams Transportation Sales Consultant Relationship Specialty Start Date End Date Juventino Howe MD [address] [facility] [address] [place] [address] PCP - General Internal Medicine 11/04/11 documented as of this encounter
--- OUTSIDE RECORDS SUMMARY | 2024-12-07 18:07 | XMS_ITS | Encounter Summary ---
Author Organization [facility] Address [address] [place] [address] Care Team Providers Care Entertainment & Media Correspondent Name Role Phone Juventino Howe MD Primary Care Provider [phone] Encounter Details Date Type Department Care Team (Latest Contact Info) Description 06/11/2008 Outpatient Historical HIS [facility] DRS BLDG Conversion, History Unspecified Disorder of Thyroid Social History Tobacco Use Types Packs/Day Years Used Date Smoking Tobacco: Never Assessed Comments Unknown Sex and Gender Information Value Date Recorded Sex Assigned at Not on file Legal Sex Female 3:38 AM HOROLOGIST APPRENTICE Gender Identity Not on file Sexual Orientation Not on file documented as of this encounter Plan of Treatment Upcoming Encounters Date Type Department Care Team (Late st Contact Info) Description 12/12/2024 4:30 PM CDT Appointment [facility] Therapy Services [place] 755 [facility] 145 [place] [address] Cata Terry, [place] [address] [place] [address] Maegan Duncan, Physical Therapist 12/19/2024 9:30 AM HOROLOGIST APPRENTICE Appointment [facility] Radiology S [facility] [address] [place] [address] Anselmo Durham MD 609 [facility] 2300 [place] [address] 12/19/2024 10:40 AM HOROLOGIST APPRENTICE Office Visit [facility] EAR, NOSE AND THROAT [facility] [address] [facility] 2300 [place] [address] Anselmo Durham MD 607 [facility] I[address] [place] [address] 12/20/2024 2:00 PM HOROLOGIST APPRENTICE Office Visit [facility] Internal Medicine Medical [place] A [address] [facility] [address] [facility] [address] [address] Juventino Howe MD [address] [facility] [address] [place] [address] 12/28/2024 2:45 PM HOROLOGIST APPRENTICE Office Visit [facility] Endocrinology [address] [facility] [address] [place] [address] Sheldon Canales MD [address] [facility] [address] [place] [address] 01/04/2025 2:00 PM HOROLOGIST APPRENTICE Office Visit [facility] Neurology [address] [facility] [address] [place] [address] Juventino Howe MD [address] [facility] [address] [place] [address] Bobbi Davalos MD [address] [facility] [address] [place] [address] 02/26/2025 3:10 PM HOROLOGIST APPRENTICE Office Visit [facility] Gastroenterology [place] [address] [facility] [address] [place] [address] Suzette Cody MD [address] [place] [address] 03/28/2025 2:30 PM HOROLOGIST APPRENTICE Office Visit [facility] Colon and Rectal Surgery [address] [place] [address] [place] [address] [place] [address] 10/30/2025 3:00 PM CDT Office Visit [facility] Pulmonology [facility] [address] [place] [address] Everett Cam MD [address] [place] [address] documented as of this encounter Procedures Procedure Name Priority Date/Time Associated Diagnosis Comments TSH REFLEXIVE Routine 06/11/2008 3:15 PM CDT documented in this encounter Results * TSH REFLEXIVE (06/11/2008 3:15 PM CDT) TSH 0.94 0.27 - 4.20 uU/mL [facility] Blood specimen (specimen) 06/11/2008 3:15 PM CDT 06/11/2008 3:28 PM CDT Narrative INTERFACE SYSTEM - 06/12/2008 12:16 PM CDT faxed to 06/12/08 12:16 ve us History Conversion CHEMISTRY ORDERABLES Edited INTERFACE SYSTEM Refer to clinic/hospital department [facility] CLIA# [id number] [address] [place] [address] documented in this encounter Visit Diagnoses Diagnosis Unspecified disorder of thyroid documented in this encounter Additional Health Concerns Infection Onset Date Last Indicated Resolved Time R/O Respiratory 01/11/2023 01/11/2023 01/11/2023 7 :48 PM HOROLOGIST APPRENTICE R/O Respiratory 02/19/2024 02/19/2024 02/19/2024 1 1:21 AM HOROLOGIST APPRENTICE Influenza 02/19/2024 02/19/2024 02/26/2024 1:16 AM HOROLOGIST APPRENTICE R/O Respiratory 03/13/2024 03/13/2024 03/13/2024 4 :20 PM HOROLOGIST APPRENTICE Human Metapneumovirus 03/13/2024 03/13/20242024 1:16 AM HOROLOGIST APPRENTICE R/O C. diff 03/13/2024 03/13/2024 03/14/2024 8:00 PM HOROLOGIST APPRENTICE R/O C. diff 03/14/2024 03/14/2024 03/15/2024 6:17 PM HOROLOGIST APPRENTICE documented as of this encounter Care Teams Entertainment & Media Correspondent Relationship Specialty Start Date End Date Juventino Howe MD [address] [facility] [address] [place] [address] PCP - General Internal Medicine 11/04/11 documented as of this encounter
--- OUTSIDE RECORDS SUMMARY | 2024-12-07 18:07 | XMS_ITS | Encounter Summary ---
Author Organization [facility] Address 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 Marly Cuenca, PT [facility] Therapy Services [address] [place] [address], [address] [place], [place] [address] [phone] (fax) COOKER documented in this encounter Plan of Treatment Upcoming Encounters Date Type Department Care Team (Late st Contact Info) Description 12/12/2024 4:30 PM CDT Appointment [facility] [address] [phone] Cata Terry, TIRE RECAPPING 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 [address] [place] [address] Maegan Duncan, Physical Therapist 12/19/2024 9:30 AM MEAL COOKER Appointment [facility] S [facility] 615 [place] [address] Anselmo Durham MD [address] [address] 12/19/2024 10:40 AM MEAL COOKER Office Visit [facility] EAR, NOSE AND THROAT [facility] [place] [address] [address] Anselmo Durham MD [address] [address] 12/20/2024 2:00 PM MEAL COOKER Office Visit [facility] Internal Medicine Medical [place] [address] [address] Juventino Howe MD [address] [place] [address] 12/28/2024 2:45 PM MEAL COOKER Office Visit [facility] Endocrinology [address] [place] [address] Sheldon Canales MD 621 [address] [facility] [address] [place] [address] 01/04/2025 2:00 PM MEAL COOKER Office Visit [facility] Neurology [address] [place] [address] Juventino Howe MD [address] [place] [address] Bobbi Davalos MD [address] [place] [address] 02/26/2025 3:10 PM MEAL COOKER Office Visit [facility] Gastroenterology [place] [address] [place] [address] Suzette Cody MD [address] [place] [address] 03/28/2025 2:30 PM MEAL COOKER Office Visit [facility] Colon and Rectal Surgery [address] [place] [address] [place] [address] [place] [address] 10/30/2025 3:00 PM CDT Office Visit [facility] Pulmonology [facility] [address] [facility] [address] [place] [address] Everett Cam MD 621 S. [facility] [address] [place] [address] documented as of this encounter Visit Diagnoses Not on filedocumented in this encounter Additional Health Concerns Infection Onset Date Last Indicated Resolved Time R/O Respiratory 01/11/2023 01/11/2023 01/11/2023 7 :48 PM MEAL COOKER R/O Respiratory 02/19/2024 02/19/2024 02/19/2024 1 1:21 AM MEAL COOKER Influenza 02/19/2024 02/19/2024 02/26/2024 1:16 AM MEAL COOKER R/O Respiratory 03/13/2024 03/13/2024 03/13/2024 4 :20 PM MEAL COOKER Human Metapneumovirus 03/13/2024 03/13/20242024 1:16 AM MEAL COOKER R/O C. diff 03/13/2024 03/13/2024 03/14/2024 8:00 PM MEAL COOKER R/O C. diff 03/14/2024 03/14/2024 03/15/2024 6:17 PM MEAL COOKER documented as of this encounter Care Teams Nba Player Relationship Specialty Start Date End Date Juventino Howe MD [address] [facility] [address] [place] [address] PCP - General Internal Medicine 11/04/11 documented as of this encounter
--- OUTSIDE RECORDS SUMMARY | 2024-12-07 18:07 | XMS_ITS | Encounter Summary ---
Author Organization [facility] Address [address] [place] [address] Care Team Providers Care Fondant Machine Operator Name Role Phone Juventino Howe MD Primary Care Provider [phone] Encounter Details Date Type Department Care Team (Late st Contact Info) Description 06/11/2008 Outpatient Historical HIS [facility]G-[facility]OSP Conversion, History Unspecified Disorder of Thyroid Social History Tobacco Use Types Packs/Day Years Used Date Smoking Tobacco: Never Assessed Comments Unknown Sex and Gender Information Value Date Recorded Sex Assigned at Not on file Legal Sex Female 3:38 AM COMPUTERIZED MILL MILL RECORDER Gender Identity Not on file Sexual Orientation Not on file documented as of this encounter Plan of Treatment Upcoming Encounters Date Type Department Care Team (Late st Contact Info) Description 12/12/2024 4:30 PM CDT Appointment [facility] Therapy Services [place] 755 [facility] 145 [place] [address] Cata Terry, [place] [address] [place] [address] Maegan Duncan, Physical Therapist 12/19/2024 9:30 AM COMPUTERIZED MILL MILL RECORDER Appointment [facility] Radiology S [facility] [address] [place] [address] Anselmo Durham MD 605 [facility] 2300 [place] [address] 12/19/2024 10:40 AM COMPUTERIZED MILL MILL RECORDER Office Visit [facility] EAR, NOSE AND THROAT [facility] [address] [facility] 2300 [place] [address] Anselmo Durham MD 607 [facility] [address] [place] [address] 12/20/2024 2:00 PM COMPUTERIZED MILL MILL RECORDER Office Visit [facility] Internal Medicine Medical [place] A [address] [facility] [address] [address] Juventino Howe MD [address] [facility] [address] [place] [address] 12/28/2024 2:45 PM COMPUTERIZED MILL MILL RECORDER Office Visit [facility] Endocrinology [address] [facility] [address] [place] [address] Sheldon Canales MD [address] [facility] [address] [place] [address] 01/04/2025 2:00 PM COMPUTERIZED MILL MILL RECORDER Office Visit [facility] Neurology [address] [facility] [address] [place] [address] Juventino Howe MD [address] [facility] [address] [place] [address] Bobbi Davalos MD [address] [facility] [address] [place] [address] 02/26/2025 3:10 PM COMPUTERIZED MILL MILL RECORDER Office Visit [facility] Gastroenterology [place] [address] [facility] [address] [place] [address] Suzette Cody MD [address] [place] [address] 03/28/2025 2:30 PM COMPUTERIZED MILL MILL RECORDER Office Visit [facility] Colon and Rectal Surgery [address] [place] [address] [place] [address] [place] [address] 10/30/2025 3:00 PM CDT Office Visit [facility] Pul[facility] [address] [facility] [address] [place] [address] Everett Cam MD [address] [facility] [address] [place] [address] documented as of this encounter Procedures Procedure Name Priority Date/Time Associated Diagnosis Comments US HEAD NECK TISSUES Timed Study 06/11/2008 2:46 PM CDT documented in this encounter Results * US NECK TISSUES (06/11/2008 2:46 PM CDT) Anatomical Region Laterality Modality Head Other 06/11/2008 2:46 PM CDT Narrative 06/12/2008 7:41 AM CDT [facility] [address] [place], [place] [address] Admit Date: 06/11/2008 RASHARDDUYEN Block E Sex: F Admit Prov: PCP, UNKNOWN Date: 1960 Primary Care Prov: CMRN: [id number] Room: [facility] SSN: [id number] IMAGING SERVICES Ordering Prov: N/A Accession Number: [id number] Interpretation EXAMINATION: ULTRASOUND OF THYROID GLAND 06/11/2008 [...] Procedure Note Donny Perera MD - 06/12/2008 [facility] [address] [place], [place] [address] Admit Date: 06/11/2008 DUYEN OROSCO Sex: F Admit Prov: PCP, UNKNOWN Date: 1960 Primary Care Prov: CMRN: [id number] Room: [facility] SSN: [address] [place] [address] IMAGING SERVICES Ordering Prov: N/A Interpretation EXAMINATION: [...] PERERA 06/11/2008 15:01 Electronically signed by: Angela PEERRA 06/12/2008 07:40 Transcribed: 06/11/2008 15:45 SJ us History Conversion US ORDERABLES Final Result documented in this encounter Visit Diagnoses Diagnosis Unspecified disorder of thyroid documented in this encounter Additional Health Concerns Infection Onset Date Last Indicated Resolved Time R/O Respiratory 01/11/2023 01/11/2023 01/11/2023 7 :48 PM COMPUTERIZED MILL MILL RECORDER R/O Respiratory 02/19/2024 02/19/2024 02/19/2024 1 1:21 AM COMPUTERIZED MILL MILL RECORDER Influenza 02/19/2024 02/19/2024 02/26/2024 1:16 AM COMPUTERIZED MILL MILL RECORDER R/O Respiratory 03/13/2024 03/13/2024 03/13/2024 4 :20 PM COMPUTERIZED MILL MILL RECORDER Human Metapneumovirus 03/13/2024 03/13/20242024 1:16 AM COMPUTERIZED MILL MILL RECORDER R/O C. diff 03/13/2024 03/13/2024 03/14/2024 8:00 PM COMPUTERIZED MILL MILL RECORDER R/O C. diff 03/14/2024 03/14/2024 03/15/2024 6:17 PM COMPUTERIZED MILL MILL RECORDER documented as of this encounter Care Teams Fondant Machine Operator Relationship Specialty Start Date End Date Juventino Howe MD [address] [facility] [address] [place] [address] PCP - General Internal Medicine 11/04/11 documented as of this encounter
--- OUTSIDE RECORDS SUMMARY | 2024-12-07 18:07 | XMS_ITS | Encounter Summary ---
Author Organization [facility] Address [address] [place] [address] Care Team Providers Care Metal Finish Inspector Name Role Phone Juventino Howe MD Primary Care Provider [phone] Encounter Details Date Type Department Care Team (Latest Contact Info) Description 06/06/2008 Outpatient Historical HIS [facility] Conversion, History Unspecified Disorder of Thyroid Social History Tobacco Use Types Packs/Day Years Used Date Smoking Tobacco: Never Assessed Comments Unknown Sex and Gender Information Value Date Recorded Sex Assigned at Not on file Legal Sex Female 3:38 AM ACCOUNTS PAYABLE CLERK Gender Identity Not on file Sexual Orientation Not on file documented as of this encounter Plan of Treatment Upcoming Encounters Date Type Department Care Team (Late st Contact Info) Description 12/12/2024 4:30 PM CDT Appointment [facility] Therapy Services [place] 755 [facility] [address] [place] [address] Cata Terry, [place] [address] [place] [address] Maegan Duncan, Physical Therapist 12/19/2024 9:30 AM ACCOUNTS PAYABLE CLERK Appointment [facility] Radiology S [facility] [address] [place] [address] Anselmo Durham MD 601 [facility] 2300 [place] [address] 12/19/2024 10:40 AM ACCOUNTS PAYABLE CLERK Office Visit [facility] EAR, NOSE AND THROAT [facility] 607 [facility] 2300 [place] [address] Anselmo Durham MD 607 [facility] [address] [place] [address] 12/20/2024 2:00 PM ACCOUNTS PAYABLE CLERK Office Visit [facility] Internal Medicine Medical [place] [address] [facility] [address] [address] Juventino Howe MD [address] [facility] [address] [place] [address] 12/28/2024 2:45 PM ACCOUNTS PAYABLE CLERK Office Visit [facility] Endocrinology [address] [facility] [address] [place] [address] Sheldon Canales MD [address] [facility] [address] [place] [address] 01/04/2025 2:00 PM ACCOUNTS PAYABLE CLERK Office Visit [facility] Neurology [address] [facility] [address] [place] [address] Juventino Howe MD [address] [facility] [address] [place] [address] Bobbi Davalos MD [address] [facility] [address] [place] [address] 02/26/2025 3:10 PM ACCOUNTS PAYABLE CLERK Office Visit [facility] Gastroenterology [place] [address] [facility] [address] [place] [address] Suzette Cody MD [address] [facility] [address] [place] [address] 03/28/2025 2:30 PM ACCOUNTS PAYABLE CLERK Office Visit [facility] Colon and Rectal Surgery [address] [facility] [address] [place] [address] [place] [address] [facility] [address] [place] [address] 10/30/2025 3:00 PM CDT Office Visit [facility] Pulmonology [facility] [address] [facility] [address] [place] [address] Everett Cam MD [address] [facility] [address] [place] [address] documented as of this encounter Procedures Procedure Name Priority Date/Time Associated Diagnosis Comments NM THYROID 24 HR UPTAKE AND SCAN Timed Study 06/06/2008 3:17 PM CDT documented in this encounter Results * NM THYROID 24 HR UPTAKE AND SCAN (06/06/2008 3:17 PM CDT) Anatomical Region Laterality Modality Neck Other 06/06/2008 3:17 PM CDT Narrative 06/07/2008 8:27 AM CDT [facility] [address] [place], [place] [address] Admit Date: 06/06/2008 DUYEN OROSCO E Sex: F Admit Prov: DOCTOR , NOT ONSTAFF Date: 1960 Primary Care Prov: CMRN: [id number] Room: [facility] SSN: [id number] IMAGING SERVICES Ordering Prov: N/A Accession Number: [id number] Interpretation THYROID SCAN THYROID UPTAKE, SINGLE 06/06/2008 [...] Procedure Note Adarsh Duran MD - 06/07/2008 [facility] [address] [place], [place] [address] Admit Date: 06/06/2008 DUYEN OROSCO Sex: F Admit Prov: ERICA MCGOWAN Date: 1960 Primary Care Prov: CMRN: [id number] Room: [facility] SSN: [id number] IMAGING SERVICES Ordering Prov: N/A Interpretation THYROID [...] Respiratory 01/11/2023 01/11/2023 01/11/2023 7 :48 PM ACCOUNTS PAYABLE CLERK R/O Respiratory 02/19/2024 02/19/2024 02/19/2024 1 1:21 AM ACCOUNTS PAYABLE CLERK Influenza 02/19/2024 02/19/2024 02/26/2024 1:16 AM ACCOUNTS PAYABLE CLERK R/O Respiratory 03/13/2024 03/13/2024 03/13/2024 4 :20 PM ACCOUNTS PAYABLE CLERK Human Metapneumovirus 03/13/2024 03/13/20242024 1:16 AM ACCOUNTS PAYABLE CLERK R/O C. diff 03/13/2024 03/13/2024 03/14/2024 8:00 PM ACCOUNTS PAYABLE CLERK R/O C. diff 03/14/2024 03/14/2024 03/15/2024 6:17 PM ACCOUNTS PAYABLE CLERK documented as of this encounter Care Teams Metal Finish Inspector Relationship Specialty Start Date End Date Juventino Howe MD [address] [facility] [address] [place] [address] PCP - General Internal Medicine 11/04/11 documented as of this encounter
--- OUTSIDE RECORDS SUMMARY | 2024-12-07 18:07 | XMS_ITS | Encounter Summary ---
Author Organization [facility] Address [address] [place] [address] Care Team Providers Care Hospital Admissions Officer Name Role Phone Juventino Howe MD Primary Care Provider [phone] Encounter Details Date Type Department Care Team (Latest Contact Info) Description 06/06/2008 Outpatient Historical [facility] Lynne Navarro MD [address] [place] [address] Unspecified Disorder of Thyroid Social History Tobacco Use Types Packs/Day Years Used Date Smoking Tobacco: Never Assessed Comments Unknown Sex and Gender Information Value Date Recorded Sex Assigned at Not on file Legal Sex Female 3:38 AM FILM INSPECTOR Gender Identity Not on file Sexual Orientation Not on file documented as of this encounter Plan of Treatment Upcoming Encounters Date Type Department Care Team (Late st Contact Info) Description 12/12/2024 4:30 PM CDT Appointment [facility] [place] [address] [facility] [address] [place] [address] [place] [address] [place] [address] Maegan Duncan, Physical Therapist 12/19/2024 9:30 AM FILM INSPECTOR Appointment [facility] Radiology S [facility] [address] [place] [address] Anselmo Durham MD [address] [facility] [address] [place] [address] 12/19/2024 10:40 AM FILM INSPECTOR Office Visit [facility] EAR, NOSE AND THROAT [facility] [address] [place] [address] [place] [address] Anselmo Durham MD [address] [place] [place] [address] 12/20/2024 2:00 PM FILM INSPECTOR Office Visit [facility] Internal Medicine Medical [place] [address] [address] Juventino Howe MD [address] [place] [address] 12/28/2024 2:45 PM FILM INSPECTOR Office Visit [facility] Endocrinology [address] [place] [address] Sheldon Canales MD [address] [place] [address] 01/04/2025 2:00 PM FILM INSPECTOR Office Visit [facility] Neurology [address] [place] [address] Juventino Howe MD [address] [place] [address] Bobbi Davalos MD [address] [place] [address] 02/26/2025 3:10 PM FILM INSPECTOR Office Visit [facility] Gastroenterology [address] [place] [address] Suzette Cody MD [address] [place] [address] 03/28/2025 2:30 PM FILM INSPECTOR Office Visit [facility] Colon and Rectal Surgery [address] [place] [address] [place] [address] [place] [address] 10/30/2025 3:00 PM CDT Office Visit [facility] Pulmonology [facility] [address] [facility] [address] [address] [place] [address] Everett Cam MD [address] [facility] [address] [place] [address] documented as of this encounter Procedures Procedure Name Priority Date/Time Associated Diagnosis Comments VITAMIN D 25 HYDROXY Routine 06/06/2008 7:40 AM CDT documented in this encounter Results * VITAMIN D 25 HYDROXY (06/06/2008 7:40 AM CDT) VITAMIN D, 25 OH, D2 51 ng/mL [facility] VITAMIN D, 25 OH, D3 10 ng/mL [facility] Comment: 25-OHD3 indicates both endogenous production and supplementation. 25-OHD2 is an indicator of exogenous sources such as diet or supplementation. Therapy is based on measurement of Total 25-OHD, with levels <20 ng/mL indicative of Vitamin D deficiency while levels between 20 ng/mL and 30 ng/mL suggest insufficiency. Optimal levels are >30 ng/mL. Lab test performed by: [facility] [address] [place] [id number] [address] GAY UGALDE VITAMIN D, 25 OH, TOTAL 61 20 - 100 ng/mL [facility] Blood specimen (specimen) 06/06/2008 7:40 AM CDT 06/06/2008 8:05 AM CDT us Lynne Escobar MD CHEMISTRY ORDERABLES Final Resu lt INTERFACE SYSTEM Refer to clinic/hospital department [facility] CLIA# [id number] [address] [place] [address] documented in this encounter Visit Diagnoses Diagnosis Unspecified disorder of thyroid documented in this encounter Additional Health Concerns Infection Onset Date Last Indicated Resolved Time R/O Respiratory 01/11/2023 01/11/2023 01/11/2023 7 :48 PM FILM INSPECTOR R/O Respiratory 02/19/2024 02/19/2024 02/19/2024 1 1:21 AM FILM INSPECTOR Influenza 02/19/2024 02/19/2024 02/26/2024 1:16 AM FILM INSPECTOR R/O Respiratory 03/13/2024 03/13/2024 03/13/2024 4 :20 PM FILM INSPECTOR Human Metapneumovirus 03/13/2024 03/13/20242024 1:16 AM FILM INSPECTOR R/O C. diff 03/13/2024 03/13/2024 03/14/2024 8:00 PM FILM INSPECTOR R/O C. diff 03/14/2024 03/14/2024 03/15/2024 6:17 PM FILM INSPECTOR documented as of this encounter Care Teams Hospital Admissions Officer Relationship Specialty Start Date End Date Juventino Howe MD [address] [place] [address] PCP - General Internal Medicine 11/04/11 documented as of this encounter
[2024-12-07 18:29] LABS: EDINFLUASCREEN Negative (Negative); EDINFLUBSCREEN Negative (Negative); EDSTREPNEGPOS1 Negative (Negative)
[2024-12-07 18:36] LABS: EDCOVIDSCREEN Negative (Negative)
--- NOTE | 2024-12-07 18:48 | ED.URI ---
HPI - URI/Sore Throat General Chief Complaint: Upper Respiratory Infection Stated Complaint: sore throat/sob Time Seen by Provider: 12/07/24 18:34 Source: patient and RN notes reviewed Mode of arrival: ambulatory Limitations: no limitations History of Present Illness HPI Narrative: 64-year-old female patient with history of adrenal insufficiency and seasonal allergies, COPD, and asthma presents today with an 8 day history of sore throat, headache, right ear fullness, sneezing, and shortness of breath. At onset of symptoms she had driven through an area with combine dust. Patient has been taking Zyrtec, Flonase, Singulair, using a Neti pot without much improvement. Patient is on 7.5 mg of prednisone daily. Denies any current fever. Patient states she is scared if she gets too sick she will have an adrenal crisis. Related Data Home Medications ?Medication ?Instructions ?Recorded ?Confirmed ?Last Taken ?Type albuterol sulfate 1.25 mg/3 mL 1.25 mg inhalation Q4-8H PRN 03/05/24 03/05/24 History solution for nebulization shortness of breath or wheezing albuterol sulfate 90 mcg/actuation 2 puff inhalation Q4-6H PRN 03/05/24 Unknown History aerosol inhaler shortness of breath or wheezing alendronate 70 mg tablet 70 mg PO WEEKLY 03/05/24 Unknown History cholecalciferol (vitamin D3) 1,250 1,250 mcg PO WEEKLY 03/05/24 Unknown History mcg (50,000 unit) capsule cyanocobalamin (vitamin B-12) 1,000 mcg IM MONTHLY 03/05/24 Unknown History 1,000 mcg/mL injection solution fluticasone fur. 200 mcg-umeclid 1 inh inhalation Q24H 03/05/24 Unknown History 62.5 mcg-vilant 25 mcg inhalat.powder (Trelegy Ellipta) montelukast 10 mg tablet 10 mg PO DAILY 03/05/24 Unknown History pantoprazole 40 mg tablet,delayed 40 mg PO HS 03/05/24 03/05/24 Unknown History release (Protonix) prednisone 5 mg tablet 7.5 mg PO DAILY 03/05/24 Unknown History rosuvastatin 10 mg tablet 10 mg PO DAILY 03/05/24 Unknown History Allergies Allergy/AdvReac Type Severity Reaction Status Date / Time ceftriaxone (From Rocephin) Allergy Intermediate HIVES Verified 12/07/24 18:02 [facility] Past Medical History Medical History (Updated 12/07/24 @ 19:26 by Shea Moore, JULIETA, WAFER FAB OPERATOR) Environmental allergies Asthma Adrenal insufficiency COPD (chronic obstructive pulmonary disease) Comments At time of signature, I have reviewed and agree with nursing past medical, surgical, social and family history unless otherwise noted. Please see nursing chart for further information. There is no relevant family history pertinent to the presenting complaint Exam Narrative: GENERAL: Mildly ill-appearing, well-nourished, and in no acute distress. HEAD: Normocephalic, atraumatic. EYES: EOMI. No redness or drainage. Conjunctivae normal. ENT: Mucous membranes pink and moist. Nares clear. No rhinorrhea. TMs normal bilaterally. Throat normal. Uvula midline. NECK: Normal AROM. Supple. No lymphadenopathy. CHEST: No respiratory distress. Decreased aeration throughout, but effort is minimal. HEART: Regular rate and rhythm. No murmur appreciated. EXTREMITIES: Normal range of motion. No edema. SKIN: Warm, dry, no rash. Capillary refill normal. Normal skin turgor. NEURO: No focal deficits. Alert and oriented x3. Gait steady. PSYCH: Normal affect. No signs of depression or anxiety. Course Course Level of Care: Express Care Visit Vital Signs Vital signs: Vital Signs Temperature 97.8 F 12/07/24 18:04 Pulse Rate 92 12/07/24 18:04 Respiratory Rate 16 12/07/24 18:04 Blood Pressure 125/55 L 12/07/24 18:04 Pulse Oximetry 98 12/07/24 18:04 Oxygen Delivery Room Air 12/07/24 18:04 Temperature 97.8 F 12/07/24 18:04 Pulse Rate 92 12/07/24 18:04 Respiratory Rate 16 12/07/24 18:04 Blood Pressure 125/55 L 12/07/24 18:04 Pulse Oximetry 98 12/07/24 18:04 Oxygen Delivery Room Air 12/07/24 18:04 Reviewed MDM - URI/Sore Throat MDM Narrative Medical decision making narrative: 64-year-old female patient with history of adrenal insufficiency and seasonal allergies, COPD, and asthma presents today with an 8 day history of sore throat, headache, right ear fullness, sneezing, and shortness of breath. At onset of symptoms she had driven through an area with combine dust. Patient has been taking Zyrtec, Flonase, Singulair, using a Neti pot without much improvement. Patient is on 7.5 mg of prednisone daily. Upon exam, patient is mildly ill appearing. Upon auscultation, patient some decreased aeration throughout, however, not sure if this is due to minimal effort on her part. DuoNeb provided, which provided minimal improvement in her lung sounds. No crackling or rhonchi noted. Influenza negative, COVID-19 negative, rapid strep negative. Symptoms likely viral in etiology, exacerbating asthma/COPD. Discussed continuing [id number] medication for symptoms. Prednisone prescriptions sent to pharmacy. Patient insists that she receive a steroid injection here at Urgent Care for leaving. Vital signs stable. Differential Diagnosis Differential diagnosis: Likely upper respiratory infection, viral infection, influenza, pharyngitis and other (Strep throat, COVID-19, asthma exacerbation, COPD exacerbation, pneumonia) Lab Data Attestation: I reviewed the patient's lab results. Labs: Lab Results 12/07/24 12/07/24 Range/Units 18:16 18:35 POC Influenza A Ag Negative (Negative) POC Influenza B Ag Negative (Negative) POC SARS CoV-2 Ag Negative (Negative) POC Grp A Strep Screen Negative (Negative) Critical Care Time Critical Care Time Critical Care Time: No Discharge Plan Discharge Clinical Impression: Viral syndrome, COPD exacerbation Patient Disposition: Home Condition: Stable Additional Instructions: Please take the prednisone as directed in addition to your daily prescribed prednisone. Continue all other [id number] and prescription medications. If your symptoms continue to worsen, please go to the ER for further evaluation. Patient Language: French Prescriptions: New prednisone 10 mg tablet See Rx Instructions .ROUTE .COMPLEX Qty: 9 0RF Rx Instructions: Take 2 tablets daily x3 days, then 1 tab daily x3 days. No Action cholecalciferol (vitamin D3) 1,250 mcg (50,000 unit) capsule 1,250 mcg PO WEEKLY cyanocobalamin (vitamin B-12) 1,000 mcg/mL solution 1,000 mcg IM MONTHLY alendronate 70 mg tablet 70 mg PO WEEKLY albuterol sulfate 90 mcg/actuation HFA aerosol inhaler 2 puff INHALATION Q4-6H PRN (Reason: shortness of breath or wheezing) prednisone 5 mg tablet 7.5 mg PO DAILY rosuvastatin 10 mg tablet 10 mg PO DAILY montelukast 10 mg tablet 10 mg PO DAILY Trelegy Ellipta 200-62.5-25 mcg blister with device 1 inh INHALATION Q24H albuterol sulfate 1.25 mg/3 mL solution for nebulization 1.25 mg inhalation Q4-8H PRN (Reason: shortness of breath or wheezing) pantoprazole [Protonix] 40 mg tablet,delayed release (DR/EC) 40 mg PO HS Follow-up/Referrals: PHYSICIAN NOT ON STAFF,NONSTAFF [Primary Care Provider] Time of Disposition: 19:26
[2024-12-07] MEDS: IPRATROPIUM BR 0.02% INH SOLN 0.5 MG/2.5 ML VIAL INHALATION (18:49)
[2024-12-07] MEDS: ALBUTEROL SULFATE NEB 2.5 MG/3 ML INH INHALATION (18:50)
[2024-12-07] MEDS: dexAMETHasone SOD PHOS INJ 10 MG/ML 1 ML VIAL 8 MG IM (19:30)
== END 2024-12-07 19:40 | disposition home or self-care (01) ==
PROVIDERS: Emergency Provider Nurse Practitioner
DX: B34.9 Viral infection, unspecified (principal); J44.1 Chronic obstructive pulmonary disease with (acute) exacerbation; Z20.822 Contact with and (suspected) exposure to COVID-19
CPT/HCPCS: 87081; 87426; 87804; 87880; 96372; 99213; G0463; J1100